=== PATIENT | male | born 1935 | race Caucasian/White ===

== ENCOUNTER 2017-08-02 07:10 | Inpatient (IN) | payer MEDICAID, MEDICARE ==
[2017-08-02] VITALS (12 sets, daily range): BP systolic 143–169; BP diastolic 68–81; PULSE 52–69; RESP 11–20; TEMP 95.1–98.6; O2SAT 95–100
[~2017-08-02] VITALS: Ht 188 cm; Wt 80.1 kg
[~2017-08-02 07:10] MED LIST: ALLO100T PO; CLON.1 PO; ECOT81TA2 PO; EXTR500C PO; FERR324T4 PO; FLON0.053; FURO1TAB93 PO; GLIP5 PO; LABE300T PO; NORV5TAB PO; RENA VITE PO; RENATAB5 PO; ULTR50TA PO; ZOCO40TA PO
--- NOTE | 2017-08-02 07:21 | PD ---
HPI Chief Complaint: Bleeding Time Seen by Provider: 07:19 Travel History International Travel<30 days: No Contact w/Intl Traveler<30days: No History of Present Illness HPI 82-year-old male on dialysis Wednesday last dialysis Wednesday presented to the emergency department today for evaluation of bleeding from his right brachial AV fistula. According to EMS the nurses noticed a scab and she had been treating this for some time. Apparently he lost near 1/2 L of blood on scene, arrived with a clamp over the AV fistula, patient has no complaints currently, no nausea vomiting diarrhea constipation chest pain shortness of breath. Has a history of stroke leaving only minimal deficits. Symptoms are moderate, started just prior to arrival, context and associated sinus symptoms as above PFSH Past Medical History High Cholesterol: Yes Diabetes: Yes Endocrine: Yes Hypertension: Yes Respiratory: Yes (COPD) Social History Tobacco Use: No Substance Use: No Allergies-Medications (Allergen,Severity, Reaction): Coded Allergies: No Known Allergies (Verified Allergy, Unknown, 08/02/17) Reported Meds & Prescriptions Reported Meds & Active Scripts Active Reported [Triamanolone] 0.1 % TOPICAL BID Gabapentin 100 Mg Cap 100 Mg PO TID Furosemide 40 Mg Tab 40 Mg PO DAILY Docusate Sodium 100 Mg Tab 200 Mg PO DAILY Atorvastatin (Atorvastatin Calcium) 40 Mg Tab 40 Mg PO HS Amlodipine (Amlodipine Besylate) 10 Mg Tab 10 Mg PO DAILY Tramadol (Tramadol HCl) 50 Mg Tab 50 Mg PO TID Labetalol (Labetalol HCl) 200 Mg Tab 200 Mg PO BID Mapap (Acetaminophen) 500 Mg Cap 500 Mg PO TID Fluticasone Nasal [place] 50 Mcg/Act Naspr 50 Mcg EACH NARE DAILY 50 mcg/spray Proventil Hfa 6.7 GM Inh (Albuterol Sulfate) 90 Mcg/Act Aer 1 Puff INH QID PRN Renvela (Sevelamer Carbonate) 800 Mg Tab 800 Mg PO TIDAC Nephro-[place]ah (B-Complex W/ C & Folic Acid) 1 Tab 1 Tab PO DAILY Ferrous Sulfate 325 Mg (65 Mg Iron) Tablet 325 Mg PO DAILY Aspirin 81 (Aspirin) 81 Mg Tabdr 81 Mg PO DAILY Allopurinol 100 Mg Tab 100 Mg PO DAILY Review of Systems Except as stated in HPI: all other systems reviewed are Neg Physical Exam Narrative GENERAL: Well-developed well-nourished no obvious distress SKIN: Focused skin assessment warm/dry. After significant time in clamp the patient's right AV fistula was examined, there is arterial bleeding from the source in the extent of the defect cannot be viewed as hemodynamic stability control as needed to be obtained. HEAD: Atraumatic. Normocephalic. EYES: Pupils equal and round. No scleral icterus. No injection or drainage. ENT: No nasal bleeding or discharge. Mucous membranes pink and moist. NECK: Trachea midline. No JVD. CARDIOVASCULAR: Regular rate and rhythm. No murmur appreciated. RESPIRATORY: No accessory muscle use. Clear to auscultation. Breath sounds equal bilaterally. GASTROINTESTINAL: Abdomen soft, non-tender, nondistended. Hepatic and splenic margins not palpable. MUSCULOSKELETAL: No obvious deformities. No clubbing. No cyanosis. No edema. NEUROLOGICAL: Awake and alert. Moderately confused, the patient cannot recall who his physicians are. PSYCHIATRIC: Appropriate mood and affect; insight and judgment normal. Data Data Last Documented VS Vital Signs Date Time Temp Pulse Resp B/P (MAP) Pulse Ox O2 Delivery O2 Flow Rate FiO2 08/02/17 10:35 08/02/17 10:35 97.3 62 15 100 08/02/17 10:30 Nasal Cannula 2.00 Orders Orders Basic Metabolic Panel (Bmp) (08/02/17 07:18) Complete Blood Count With Diff (08/02/17 07:18) Ecg Monitoring (08/02/17 07:18) Iv Access Insert/Monitor (08/02/17 07:18) Oximetry (08/02/17 07:18) Oxygen Administration (08/02/17 07:18) Sodium Chloride 0.9% Flush (Ns Flush) (08/02/17 07:30) Type And Screen (08/02/17 09:41) Red Blood Cells (Rbc) (08/02/17 09:41) Blood Product Administration (08/02/17 09:41) Sodium Chlor 0.9% 250 Ml Inj (Ns 250 Ml (08/02/17 09:45) Chest, Single Ap (08/02/17 ) Electrocardiogram (08/02/17 ) Act Partial Throm Time (Ptt) (08/02/17 09:46) Prothrombin Time / Inr (Pt) (08/02/17 09:46) Platelet Pheresis (08/02/17 09:46) Sodium Chlor 0.9% 250 Ml Inj (Ns 250 Ml (08/02/17 10:00) Consent (08/02/17 10:16) Heparin Inj (Heparin Inj) (08/02/17 10:20) Thrombin Top Soln (Thrombin Top Soln) (08/02/17 10:21) Gelfoam 100 Top (Gelfoam 100 Top) (08/02/17 10:21) Heparin Inj (Heparin Inj) (08/02/17 10:21) Protamine Sulfate Inj (Protamine Sulfate (08/02/17 10:21) Mannitol Inj (Mannitol Inj) (08/02/17 10:21) Admit Order (Ed Use Only) (08/02/17 ) Consult Vascular Surgery (08/02/17 ) Consult Nephrology (08/02/17 ) Labs Laboratory Tests Test 08/02/17 07:24 08/02/17 09:25 White Blood Count 6.4 TH/MM3 Red Blood Count 3.78 MIL/MM3 Hemoglobin 9.2 GM/DL Hematocrit 28.9 % Mean Corpuscular Volume 76.4 FL Mean Corpuscular Hemoglobin 24.5 PG Mean Corpuscular Hemoglobin Concent 32.1 % Red Cell Distribution Width 21.9 % Platelet Count 226 TH/MM3 Mean Platelet Volume 6.3 FL Neutrophils (%) (Auto) 68.3 % Lymphocytes (%) (Auto) 15.7 % Monocytes (%) (Auto) 8.7 % Eosinophils (%) (Auto) 6.2 % Basophils (%) (Auto) 1.1 % Neutrophils # (Auto) 4.4 TH/MM3 Lymphocytes # (Auto) 1.0 TH/MM3 Monocytes # (Auto) 0.6 TH/MM3 Eosinophils # (Auto) 0.4 TH/MM3 Basophils # (Auto) 0.1 TH/MM3 CBC Comment AUTO DIFF Differential Comment AUTO DIFF CONFIRMED Ovalocytes 1+ Helmet Cells OCC Keratocytes OCC Blood Urea Nitrogen 47 MG/DL Creatinine 12.07 MG/DL Random Glucose 91 MG/DL Calcium Level 9.1 MG/DL Sodium Level 136 MEQ/L Potassium Level 5.4 MEQ/L Chloride Level 101 MEQ/L Carbon Dioxide Level 23.9 MEQ/L Anion Gap 11 MEQ/L Estimat Glomerular Filtration Rate 4 ML/MIN Prothrombin Time 11.1 SEC Prothromb Time International Ratio 1.1 RATIO Activated Partial Thromboplast Time 31.0 SEC MDM Medical Decision Making Medical Screen Exam Complete: Yes Emergency Medical Condition: Yes Differential Diagnosis Anemia, AV fistula bleeding, AV fistula laceration. Narrative Course Patient room to the emergency department, had a clamp on his AV fistula left in place for an hour and a half, hemoglobin initially low, probably chronically so. May have lost up to 400-500 cc of blood at the dialysis center, when I released the clamp to examine the wound immediately there was arterial pulsatile bleeding from the AV fistula, a pressure dressing was applied, estimated blood loss is 250-300 cc, was starting on 1 unit of uncrossed matched blood, type and cross for an additional 5 units as necessary, discussed immediately with Dr. Muñoz and plan is to take to the operating room, discussed with the residents for admission to Dr. Rosa, discussed with Dr. Arciniega's PA requesting vascular catheter access if unable to use fistula after surgery. This was conveyed to Dr. Carrion and he will place a fistula if he thinks the fistula will not be usable. Critical Care Narrative Aggregate critical care time was 35 minutes. Time to perform other separately billable procedures was not included in the critical care time. My time did not include minutes spent treating any other patients simultaneously or on activities that did not directly contribute to the patient's treatment. The services I provided to this patient were to treat and/or prevent clinically significant deterioration that could result in: disability and organ failure I provided critical care services requiring my management, as noted below: Chart data review, documentation time, medication orders and management, vital sign assessments/reviewing monitor data, ordering and reviewing lab tests, ordering and interpreting/reviewing x-rays and diagnostic studies, care of the patient and discussion of the patient with the admitting physicians. Patient frequently reassessed by me for control of bleeding. Diagnosis Primary Impression: Hemorrhage of arteriovenous fistula Qualified Codes: T82.838A - Hemorrhage due to vascular prosthetic devices, implants and grafts, initial encounter Additional Impression: Anemia of renal disease Admitting Information Admitting Physician Requests: Admit Condition: Serious Agustín Oswald MD Aug 02, 2017 07:21
[2017-08-02] MEDS ORDERED: SODIUM CHLORIDE 0.9% FLUSH 10 ML FLUSH IVF PRN (07:30)
[2017-08-02 07:44] LABS: AUTOMATED NEUTROPHIL # 4.4 TH/MM3 (1.8-7.7); BASOPHIL # 0.1 TH/MM3 (0-0.2); BASOPHIL % 1.1 % (0.0-2.0); EOSINOPHIL # 0.4 TH/MM3 (0-0.4); EOSINOPHIL % 6.2 % (0.0-4.0); HEMATOCRIT 28.9 % (39.0-51.0); HEMOGLOBIN 9.2 GM/DL (13.0-17.0); LYMPH % 15.7 % (9.0-44.0); MEAN CELL VOLUME 76.4 FL (80.0-100.0); MEAN CORPUSCULAR HEMOGLOBIN 24.5 PG (27.0-34.0); MEAN CORPUSCULAR HGB CONC 32.1 % (32.0-36.0); MEAN PLATELET VOLUME 6.3 FL (7.0-11.0); MONO % 8.7 % (0.0-8.0); MONOCYTE # 0.6 TH/MM3 (0-0.9); NEUT % 68.3 % (16.0-70.0); PLATELET COUNT 226 TH/MM3 (150-450); RED BLOOD COUNT 3.78 MIL/MM3 (4.50-5.90); RED CELL DISTRIBUTION WIDTH 21.9 % (11.6-17.2); WHITE BLOOD COUNT 6.4 TH/MM3 (4.0-11.0)
[2017-08-02 08:05] LABS: BICARBONATE 23.9 MEQ/L (21.0-32.0); CALCIUM 9.1 MG/DL (8.5-10.1)
[2017-08-02 08:19] LABS: CREATININE 12.07 MG/DL (0.60-1.30)
[2017-08-02] MEDS ORDERED: ATOR40TA16 PO (08:35)
[2017-08-02] MEDS ORDERED: ALLO100T PO (08:35)
[2017-08-02] MEDS ORDERED: ALBU6.7H INH (08:35)
[2017-08-02] MEDS ORDERED: FURO40TA PO (08:35)
[2017-08-02] MEDS ORDERED: AMLO10TA2 PO (08:35)
[2017-08-02] MEDS ORDERED: MAPA500C PO (08:35)
[2017-08-02] MEDS ORDERED: NEPHTAB3 PO (08:35)
[2017-08-02] MEDS ORDERED: GABA100C4 PO (08:35)
[2017-08-02] MEDS ORDERED: TRAM50TA PO (08:35)
[2017-08-02] MEDS ORDERED: ASPI1TAB57 PO (08:35)
[2017-08-02] MEDS ORDERED: TRIAMCINOLONE TOPICAL (08:35)
[2017-08-02] MEDS ORDERED: SEVEL800 PO (08:35)
[2017-08-02] MEDS ORDERED: FERR325T18 PO (08:35)
[2017-08-02] MEDS ORDERED: FLUT50SP EACH NARE (08:35)
[2017-08-02] MEDS ORDERED: DOCU100T9 PO (08:35)
[2017-08-02] MEDS ORDERED: LABE200T2 PO (08:35)
[2017-08-02 08:42] LABS: OVALOCYTES 1+ (NORMAL)
[2017-08-02 08:43] LABS: HELMET CELLS OCC (NORMAL); KERATOCYTES OCC (NORMAL)
[2017-08-02] MEDS ORDERED: SODIUM CHLOR 0.9% 250 ML INJ 250 ML IV ONE ×2 (09:45→10:00)
[2017-08-02] MEDS ORDERED: HEPARIN SODIUM - SQ 10,000 UNITS/ML VIAL ONE (10:20)
[2017-08-02] MEDS ORDERED: GELFOAM SIZE 100 ONE (10:21)
[2017-08-02] MEDS ORDERED: MANNITOL INJ 0 ML ONE (10:21)
[2017-08-02] MEDS ORDERED: THROMBIN (TOPICAL) 5,000 UNIT VIAL ONE (10:21)
[2017-08-02] MEDS ORDERED: PROTAMINE SULFATE 50 MG/5 ML VIAL ONE (10:21)
[2017-08-02] MEDS ORDERED: HEPARIN SODIUM - IV 10,000 UNITS/10 ML VIAL ONE (10:21)
[2017-08-02 10:28] LABS: INTERNATIONAL NORMALIZED RATIO 1.1 RATIO; PROTHROMBIN TIME - PATIENT 11.1 SEC (9.8-11.6)
--- NOTE | 2017-08-02 10:35 | RADRPT ---
EXAM DATE/TIME: 08/02/2017 09:53 [place] COMPARISON: No previous studies available for comparison. INDICATIONS : Short of breath with wheezing. MEDICAL HISTORY : Renal failure, acute. SURGICAL HISTORY : Right arm AV fistula. ENCOUNTER: Initial ACUITY: 1 day PAIN SCORE: 6/10 LOCATION: Bilateral chest FINDINGS: A single view of the chest demonstrates diffuse interstitial densities. Bibasilar alveolar opacities greater right lower lobe. There is some volume loss on the right. Heart normal in size. Osseous struc tures are intact. CONCLUSION: 1. Interstitial and alveolar opacities with likely a combination of atelectasis/infiltrate right lowe r lobe given volume loss. Treatment and followup to resolution recommended. Kevin Bradford MD on August 02, 2017 at 10:31 Board Certified Radiologist. This report was verified electronically.
--- NOTE | 2017-08-02 10:41 | HHI.HP ---
HPI Service Family Medicine Primary Care Physician Unknown Admission Diagnosis AV fistula bleeding. Anemia. Diagnoses: International Travel<30 Days: No Contact w/Intl Traveler<30days: No Known Affected Area: No History of Present Illness Victor Manuel Root is a 82yr old M w/ DM, HTN, CHF, ESRD on dialysis (M,W,F) present to ED with for evaluation of AV fistula bleeding. Per ED note, pt arrived via EMS from dialysis center. He lost 1/2 L of blood on scene and arrived with a clamp over the AV fistula. Stat consult fo vascular surgery. ED physician spoke with Dr. Romero. Patient immediately transported back to OR for surgery. Patient denies CP, SOB, N/V and abdominal pain. No complaints at this time. Patient is a resident of [facility]. (Charito Beatty MD R1) Review of Systems ROS Limitations: Speech Impaired, Poor Historian Constitutional: DENIES: Fatigue, Fever Respiratory: DENIES: Shortness of breath Cardiovascular: DENIES: Chest pain (Charito Beatty MD R1) Past Family Social History Past Medical History DM HTN HLD CHF COPD CKD Anemia GERD ESRD on dialysis PVD Anxiety Hx of DVT Hx of CVA Past Surgical History Placement and AV dialysis fistula 2013 (Charito Beatty MD R1) Allergies: Coded Allergies: No Known Allergies (Verified Allergy, Unknown, 08/02/17) Family History Unknown Social History Resides at assisted living facility Completely independent per nurse at [facility] Denies smoking, drinking, and illicit drug use (Charito Beatty MD R1) Physical Exam Vital Signs Vital Signs Date Time Temp Pulse Resp B/P (MAP) Pulse Ox O2 Delivery O2 Flow Rate FiO2 08/02/17 10:35 97.3 62 15 166/78 100 08/02/17 10:24 98.0 61 18 159/74 100 08/02/17 10:00 63 11 159/74 (102) 97 Nasal Cannula 2.00 08/02/17 09:00 58 11 164/70 (101) 96 Nasal Cannula 2.00 08/02/17 08:00 58 12 148/68 (94) 95 Nasal Cannula 2.00 08/02/17 07:20 95 Room Air 08/02/17 07:20 98.6 65 14 156/71 (99) 95 Room Air 08/02/17 07:20 Nasal Cannula 2.00 08/02/17 07:15 98.6 69 156/71 (99) 96 Physical Exam GENERAL: pleasant, lying in bed, well-nourished, well-developed patient, in no apparent distress. SKIN: No rashes, ecchymoses or lesions. Cool and dry. HEAD: Atraumatic. Normocephalic. No temporal or scalp tenderness. EYES: Pupils equal round and reactive. Extraocular motions intact. No scleral icterus. No injection or drainage. ENT: Nose without bleeding, purulent drainage or septal hematoma. Throat without erythema, tonsillar hypertrophy or exudate. Uvula midline. Airway patent. NECK: Trachea midline. No JVD or lymphadenopathy. Supple, nontender, no meningeal signs. CARDIOVASCULAR: Regular rate and rhythm without murmurs, gallops, or rubs. RESPIRATORY: Clear to auscultation. Breath sounds equal bilaterally. No wheezes , rales, or rhonchi. GASTROINTESTINAL: Abdomen soft, non-tender, nondistended. No hepato-splenomegaly , or palpable masses. No guarding. MUSCULOSKELETAL: Right upper arm containing AV fistula wrapped in bandage with clamp NEUROLOGICAL: Awake, alert, oriented x 3 Laboratory Laboratory Tests Test 08/02/17 07:24 08/02/17 09:25 White Blood Count 6.4 Red Blood Count 3.78 Hemoglobin 9.2 Hematocrit 28.9 Mean Corpuscular Volume 76.4 Mean Corpuscular Hemoglobin 24.5 Mean Corpuscular Hemoglobin Concent 32.1 Red Cell Distribution Width 21.9 Platelet Count 226 Mean Platelet Volume 6.3 Neutrophils (%) (Auto) 68.3 Lymphocytes (%) (Auto) 15.7 Monocytes (%) (Auto) 8.7 Eosinophils (%) (Auto) 6.2 Basophils (%) (Auto) 1.1 Neutrophils # (Auto) 4.4 Lymphocytes # (Auto) 1.0 Monocytes # (Auto) 0.6 Eosinophils # (Auto) 0.4 Basophils # (Auto) 0.1 CBC Comment AUTO DIFF Differential Comment AUTO DIFF CONFIRMED Ovalocytes 1+ Helmet Cells OCC Keratocytes OCC Blood Urea Nitrogen 47 Creatinine 12.07 Random Glucose 91 Calcium Level 9.1 Sodium Level 136 Potassium Level 5.4 Chloride Level 101 Carbon Dioxide Level 23.9 Anion Gap 11 Estimat Glomerular Filtration Rate 4 Prothrombin Time 11.1 Prothromb Time International Ratio 1.1 Activated Partial Thromboplast Time 31.0 (Charito Beatty MD R1) Result Diagram: 08/02/1772308/02/17723 Caprini VTE Risk Assessment Caprini VTE Risk Assessment: Mod/High Risk (score >= 2) Caprini Risk Assessment Model Point Value = 1 Point Value = 2 Point Value = 3 Point Value = 5 Age 41-60 Minor surgery BMI > 25 kg/m2 Swollen legs Varicose veins or History of unexplained or recurrent spontaneous Oral contraceptives or hormone replacement Sepsis (< 1 month) Serious lung disease, including pneumonia (< 1 month) Abnormal pulmonary function Acute myocardial infarction Congestive heart failure (< 1 month) History of inflammatory bowel disease Medical patient at bed rest Age 61-74 Arthroscopic surgery Major open surgery (> 45 min) Laparoscopic surgery (> 45 min) Malignancy Confined to bed (> 72 hours) Immobilizing plaster cast Central venous access Age >= 75 History of VTE Family history of VTE Factor V Leiden Prothrombin [id number] Lupus anticoagulant Anticardiolipin antibodies Elevated serum homocysteine Heparin-induced thrombocytopenia Other congenital or acquired thrombophilia Stroke (< 1 month) Elective arthroplasty Hip, pelvis, or leg fracture Acute spinal cord injury (< 1 month) Prophylaxis Regimen Total Risk Factor Score Risk Level Prophylaxis Regimen 0-1 Low Early ambulation 2 Moderate Order ONE of the following: *Sequential Compression Device (SCD) *Heparin 5000 units SQ BID 3-4 Higher Order ONE of the following medications: *Heparin 5000 units SQ TID *Enoxaparin/Lovenox 40 mg SQ daily (WT < 150 kg, CrCl > 30 mL/min) *Enoxaparin/Lovenox 30 mg SQ daily (WT < 150 kg, CrCl > 10-29 mL/min) *Enoxaparin/Lovenox 30 mg SQ BID (WT < 150 kg, CrCl > 30 mL/min) AND/OR *Sequential Compression Device (SCD) 5 or more Highest Order ONE of the following medications: *Heparin 5000 units SQ TID (Preferred with Epidurals) *Enoxaparin/Lovenox 40 mg SQ daily (WT < 150 kg, CrCl > 30 mL/min) *Enoxaparin/Lovenox 30 mg SQ daily (WT < 150 kg, CrCl > 10-29 mL/min) *Enoxaparin/Lovenox 30 mg SQ BID (WT < 150 kg, CrCl > 30 mL/min) AND *Sequential Compression Device (SCD) (Charito Beatty MD R1) Assessment and Plan Assessment and Plan 82yr old w/ DM, HTN, CHF, and ESRD on dialysis admitted for AV fistula bleed. Hemodialysis Vas-Cath placed for dialysis today. Code Status Full code Discussed Condition With Dr. Lang (Charito Beatty MD R1) Attending Attestation THIS CASE WAS DISCUSSED WITH THE RESIDENT PHYSICIANS. I HAVE REVIEWED THE RECORD AND AGREE WITH THE ABOVE NOTE AND PLAN OF CARE WAS DISCUSSED. I HAVE AUTHORIZED THE ORDER FOR ADMISSION TO AN IN-PATIENT STATUS. (Benjy Adams MD) Problem List: (1) Hemorrhage of arteriovenous fistula ICD Codes: T82.838A - Hemorrhage due to vascular prosthetic devices, implants and grafts, initial encounter Status: Acute Plan: Vascular consulted stat for AV fistula repair. Vascular surgeon indicated that he cannot utilized it for 2-3 weeks. Nephrology consulted, appreciated recs. Hemodialysis Vas-Cath placed for dialysis today. Patient will need converted to a PermCath prior to discharge. s/p 2 units of RBC and 1 platelets on 08/02 (2) End-stage renal disease on hemodialysis ICD Codes: N18.6 - End stage renal disease; Z99.2 - Dependence on renal dialysis Status: Chronic Plan: As above. Patient to have hemodialysis today per his regular schedule which will improve his hyperkalemia and Cr level. (3) Anemia of renal disease ICD Codes: D63.1 - Anemia in chronic kidney disease Status: Chronic Plan: Hb of 9.2, MCV 76.4 Continue Epogen (4) Diabetes ICD Codes: E11.9 - Type 2 diabetes mellitus without complications Plan: -Low dose SS (5) HLD (hyperlipidemia) ICD Codes: E78.5 - Hyperlipidemia, unspecified Plan: -Continue Atorvastatin 40mg HS (6) HTN (hypertension) ICD Codes: I10 - Essential (primary) hypertension Plan: -Continue home HTN meds: Amlodipine 10mg PO daily and Labetalol 200mg PO BID -Clonidine 0.1mg PO PRN for BP >180/100 (7) Nutrition, metabolism, and development symptoms ICD Codes: R63.8 - Other symptoms and signs concerning food and fluid intake Plan: Diet: NPO, will advance to renal diet Fluids: not indicated at this time Electrolytes: monitor and replace as needed vitals q4h, monitor I & Os, (Charito Beatty MD R1) Physician Certification 2 Midnight Certification Type: Admission for Inpatient Services Order for Inpatient Services The services are ordered in accordance with Medicare regulations or non- Medicare payer requirements, as applicable. In the case of services not specified as inpatient-only, they are appropriately provided as inpatient services in accordance with the 2-midnight benchmark. Estimated LOS (days): 2 2 days is the estimated time the patient will need to remain in the hospital, assuming treatment plan goals are met and no additional complications. Post-Hospital Plan: Custodial/YFN (Charito Beatty MD R1) Problem Qualifiers (1) Hemorrhage of arteriovenous fistula: Qualified Codes: T82.838A - Hemorrhage due to vascular prosthetic devices, implants and grafts, initial encounter (2) Diabetes: Charito Beatty MD R1 Aug 02, 2017 10:41 Benjy Adams MD Aug 02, 2017 21:34
[2017-08-02] MEDS ORDERED: ceFAZolin 2 GM PREMIX 50 ML ONE (11:15)
[2017-08-02] MEDS ORDERED: LIDOCAINE HCL 1% PF 5 ML SYRINGE OTHER ONE (12:00)
[2017-08-02] MEDS ORDERED: PROPOFOL 200 MG/20 ML AMP IV ONE (12:00)
[2017-08-02] MEDS ORDERED: ROCURONIUM INJ 50 MG/5 ML SYRINGE IV PUSH ONE (12:00)
[2017-08-02] MEDS ORDERED: NORMOSOL R INJ 1,000 ML IV ONE (12:00)
[2017-08-02] MEDS ORDERED: NEOSTIGMINE 5 MG/5 ML SYRINGE IV PUSH ONE (12:00)
[2017-08-02] MEDS ORDERED: GLYCOPYRROLATE 1 MG/5 ML SYRINGE IV PUSH ONE (12:00)
[2017-08-02] MEDS ORDERED: DO NOT ADM ANY ANTICOAGULANT DRUGS PRN (12:51)
[2017-08-02] MEDS ORDERED: SODIUM CHLOR 0.9% 1000 ML INJ 1,000 ML OTHER PRN ×2 (15:27)
[2017-08-02] MEDS ORDERED: SODIUM CHLOR 0.9% 1000 ML INJ 1,000 ML IV PRN (15:27)
[2017-08-02] MEDS ORDERED: cloNIDine HCL 0.1 MG TAB PO PRN (15:30)
[2017-08-02] MEDS ORDERED: diphenhydrAMINE HCL 25 MG CAP PO PRN (15:30)
[2017-08-02] MEDS ORDERED: ONDANSETRON HCL 4 MG/2 ML VIAL IV PUSH PRN (15:30)
[2017-08-02] MEDS ORDERED: ALBUMIN 25% INJ 100 ML IV PRN (15:30)
[2017-08-02] MEDS ORDERED: MANNITOL 12.5 GM/50 ML VIAL IV PRN (15:30)
[2017-08-02] MEDS ORDERED: HEPARIN SODIUM - IV 10,000 UNITS/10 ML VIAL PRN (15:30)
[2017-08-02] MEDS ORDERED: GENTAMICIN SULFATE 20 MG/2 ML VIAL OTHER PRN (15:30)
[2017-08-02] MEDS ORDERED: NITROGLYCERIN 0.4 MG SL 25 TABS/BTL SL PRN (15:30)
[2017-08-02] MEDS ORDERED: HEPARIN SODIUM - IV 10,000 UNITS/10 ML VIAL IV FLUSH PRN (15:30)
[2017-08-02] MEDS ORDERED: ACETAMINOPHEN 325 MG TAB PO PRN ×2 (15:30→16:30)
[2017-08-02] MEDS ORDERED: GELATIN 12 MM/7 MM FOAM TOP PRN (15:30)
[2017-08-02] MEDS ORDERED: SODIUM CHLORIDE 0.9% FLUSH 10 ML FLUSH IV FLUSH PRN ×3 (15:30→17:00)
[2017-08-02] MEDS ORDERED: ACETAMINOPHEN/HYDROcodone 325 MG/5 MG TAB PO PRN (16:30)
[2017-08-02] MEDS ORDERED: MORPHINE SULFATE 2 MG/ML INJ IV PUSH PRN (16:30)
[2017-08-02] MEDS ORDERED: DEXTROSE 50% IN WATER 50 ML VIAL(D50) IV PUSH PRN (16:45)
[2017-08-02] MEDS ORDERED: GLUCAGON 1 MG/ML VIAL OTHER PRN (16:45)
[2017-08-02] MEDS ORDERED: HEPARIN SODIUM - IV 2,000 UNITS/2 ML VIAL IV FLUSH PRN (17:00)
[2017-08-02] MEDS: INSULIN ASPART SUPPLEMENTAL SCALE SQ SCH ×2 (17:00→22:37)
--- NOTE | 2017-08-02 17:02 | PD.RAD ---
Post Procedure Progress Note Pre Procedure Diagnosis: (1) Renal failure (2) Hemorrhage of arteriovenous fistula Post Procedure Diagnosis: (1) Hemorrhage of arteriovenous fistula (2) Renal failure Procedure Date: Aug 02, 2017 Supervising Radiologist: Blayne Luis JR Proceduralist/Assist: Dev Pompa, RT(R), Fernanda Cole, RT(R) Anesthesia: Local Plan of Activity Patient to Unit: Nursing Unit Patient Condition: Good See PACS Report for procedural detail/treatment Central Venous Access Device Procedure 1 Right Internal Jugular Hemodialysis Catheter Non-Tunneled Placement dual lumen [place]: 15 Procedure 2 Left Internal Jugular Central Line Placement triple lumen [place]: 7 Findings: Right subclavian stent cages the right IJ. Unable to use right IJ for venous access. Spoke with Dr Lyles Pt needs venous access. He requested CVL placement as well. Placed left IJ Vascath and CVL. Both in good position. Utilized only available CVL size 20cm. Tip in brachiocephalic vein. Vascath tip in RA Jr. Toby,Blayne Andrade MD Aug 02, 2017 17:02
--- NOTE | 2017-08-02 17:27 | PD.CONS ---
HPI Consult Requested By Reason for Consult End-stage renal disease and dialysis management. Primary Care Physician Unknown History of Present Illness This patient is an 82-year-old male with a history of end-stage renal disease, diabetes mellitus, hypertension, CHF improve or vascular disease with previous placement of a AV dialysis fistula. Patient was at the dialysis facility and apparently there was a significant blood loss from his AV dialysis access. Per vascular surgeon there appeared to be a scabbed area overlying the access which gave way. Documented blood loss of about 400 MLS. The access has been repaired but the vascular surgeon as indicated he cannot be utilized for about 2-3 weeks. Hemodialysis Vas-Cath is placed for dialysis today. Patient was seen postprocedure. Review of Systems Constitutional: DENIES: Diaphoretic episodes, Fatigue, Fever, Weight gain, Weight loss, Chills, Dizziness, Change in appetite, Night Sweats Cardiovascular: DENIES: Chest pain, Palpitations, Syncope, Dyspnea on Exertion , PND, Lower Extremity Edema, Orthopnea, Claudication Gastrointestinal: DENIES: Abdominal pain, Black stools, Bloody stools, Constipation, Diarrhea, Nausea, Vomiting, Difficulty Swallowing, Anorexia Musculoskeletal: COMPLAINS OF: Joint pain, Stiffness, DENIES: Muscle aches, Joint Swelling, Back pain, Neck pain Past Family Social History Allergies: Coded Allergies: No Known Allergies (Verified Allergy, Unknown, 08/02/17) Past Medical History End-stage renal disease Hypertension Diabetes mellitus Coronary disease Carcinoma of the prostate CHF Peripheral vascular disease. Gastroesophageal reflux disease. Previous intracranial hemorrhage. Past Surgical History Placement and AV dialysis fistula August 2013. Reported Medications Reported Meds & Active Scripts Active Reported [Triamanolone] 0.1 % TOPICAL BID Gabapentin 100 Mg Cap 100 Mg PO TID Furosemide 40 Mg Tab 40 Mg PO DAILY Docusate Sodium 100 Mg Tab 200 Mg PO DAILY Atorvastatin (Atorvastatin Calcium) 40 Mg Tab 40 Mg PO HS Amlodipine (Amlodipine Besylate) 10 Mg Tab 10 Mg PO DAILY Tramadol (Tramadol HCl) 50 Mg Tab 50 Mg PO TID Labetalol (Labetalol HCl) 200 Mg Tab 200 Mg PO BID Mapap (Acetaminophen) 500 Mg Cap 500 Mg PO TID Fluticasone Nasal [place] 50 Mcg/Act Naspr 50 Mcg EACH NARE DAILY 50 mcg/spray Proventil Hfa 6.7 GM Inh (Albuterol Sulfate) 90 Mcg/Act Aer 1 Puff INH QID PRN Renvela (Sevelamer Carbonate) 800 Mg Tab 800 Mg PO TIDAC Nephro-Micah (B-Complex W/ C & Folic Acid) 1 Tab 1 Tab PO DAILY Ferrous Sulfate 325 Mg (65 Mg Iron) Tablet 325 Mg PO DAILY Aspirin 81 (Aspirin) 81 Mg Tabdr 81 Mg PO DAILY Allopurinol 100 Mg Tab 100 Mg PO DAILY Active Ordered Medications Current Medications Sodium Chloride (NS Flush) 2 ml UNSCH PRN IVF FLUSH AFTER USING IV ACCESS; Start 08/02/17 at 07:30 Sodium Chloride 250 ml @ 15 mls/hr ONCE ONCE IV ; Start 08/02/17 at 09:45; Stop 08/03/17 at 02:24 Sodium Chloride 250 ml @ 15 mls/hr ONCE ONCE IV ; Start 08/02/17 at 10:00; Stop 08/03/17 at 02:39 Heparin Sodium (Porcine) (Heparin Inj) 10,000 units STK-MED ONCE .ROUTE Last administered on 08/02/17at 12:15; Start 08/02/17 at 10:20; Stop 08/02/17 at 10:21 ; Status DC Thrombin (Thrombin Top Soln) 5,000 units STK-MED ONCE .ROUTE ; Start 08/02/17 at 10:21; Stop 08/02/17 at 10:22; Status DC Gelatin (Gelfoam 100 Top) 1 foam STK-MED ONCE .ROUTE ; Start 08/02/17 at 10:21; Stop 08/02/17 at 10:22; Status DC Heparin Sodium (Porcine) (Heparin Inj) 10,000 units STK-MED ONCE .ROUTE ; Start 08/02/17 at 10:21; Stop 08/02/17 at 10:22; Status DC Protamine Sulfate (Protamine Sulfate Inj) 50 mg STK-MED ONCE .ROUTE ; Start at 10:21; Stop 08/02/17 at 10:22; Status DC Mannitol 0 ml @ As Directed STK-MED ONCE .ROUTE ; Start 08/02/17 at 10:21; Stop 08/02/17 at 10:22; Status DC Cefazolin Sodium/ Dextrose 50 ml @ As Directed STK-MED ONCE .ROUTE Last administered on 08/02/17at 11:51; Start 08/02/17 at 11:15; Stop 08/02/17 at 11:16 ; Status DC Fentanyl Citrate (fentaNYL INJ) 100 mcg STK-MED ONCE .ROUTE ; Start 08/02/17 at 13:00; Stop 08/02/17 at 13:01; Status DC Miscellaneous Information ALL NURSING DEPARTME... UNSCH PRN .XX SEE LABEL COMMENTS; Start 08/02/17 at 12:51; Stop 08/03/17 at 12:50 Heparin Sodium (Porcine) (*HEPARIN INJ Periprocedural ONLY) 10,000 units STK- MED ONCE .ROUTE ; Start 08/02/17 at 15:01; Stop 08/02/17 at 15:02; Status DC Sodium Chloride 1,000 ml @ 0 mls/hr Q0M PRN OTHER For Prime & Rinse Back; Start 08/02/17 at 15:27 Heparin Sodium (Porcine) (Heparin Inj) 8,000 units UNSCH PRN IV FLUSH WITH DIALYSIS; Start 08/02/17 at 15:30 Sodium Chloride 1,000 ml @ 200 mls/hr Q5H PRN IV WITH DIALYSIS; Start 08/02/17 at 15:27 Sodium Chloride 1,000 ml @ 0 mls/hr Q0M PRN OTHER WITH DIALYSIS; Start at 15:27 Mannitol (Mannitol Inj) 12.5 gm UNSCH PRN IV WITH DIALYSIS; Start 08/02/17 at 15:30 Albumin Human 100 ml @ 60 mls/hr UNSCH PRN IV WITH DIALYSIS; Start 08/02/17 at 15:30 Sodium Chloride (NS Flush) 5 ml UNSCH PRN IV FLUSH WITH DIALYSIS; Start at 15:30 Heparin Sodium (Porcine) (Heparin Inj) UNSCH PRN .XX WITH DIALYSIS; Start at 15:30 Gentamicin Sulfate (Gentamicin Inj) 20 mg UNSCH PRN OTHER WITH DIALYSIS; Start 08/02/17 at 15:30 Ondansetron HCl (Zofran Inj) 4 mg UNSCH PRN IV PUSH WITH DIALYSIS; Start at 15:30 Acetaminophen (Tylenol) 650 mg UNSCH PRN PO for headach, pain, temp > 101F; Start 08/02/17 at 15:30 Diphenhydramine HCl (Benadryl) 25 mg UNSCH PRN PO for hives/itching/anaphylaxis ; Start 08/02/17 at 15:30 Nitroglycerin (Nitrostat Sl) 0.4 mg UNSCH PRN SL CHEST PAIN; Start 08/02/17 at 15:30 Clonidine (Catapres) 0.1 mg UNSCH PRN PO for BP > 180/100 X 2 readings; Start 08/02/17 at 15:30 Gelatin (Gelfoam 12 Mm/7 Mm Top) 1 foam UNSCH PRN TOP SEE LABEL COMMENTS; Start 08/02/17 at 15:30 Amlodipine Besylate (Norvasc) 10 mg DAILY PO ; Start 08/02/17 at 16:30 Atorvastatin Calcium (Lipitor) 40 mg HS PO ; Start 08/02/17 at 21:00 Labetalol HCl (Trandate) 200 mg BID PO ; Start 08/02/17 at 21:00 Acetaminophen (Tylenol) 650 mg Q6H PRN PO PAIN SCALE 1 TO 5; Start 08/02/17 at 16:30 Acetaminophen/ Hydrocodone Bitart ([place] 5-325 Mg) 1 tab Q4H PRN PO PAIN SCALE 5 TO 10; Start 08/02/17 at 16:30 Morphine Sulfate (Morphine Inj) 1 mg Q3H PRN IV PUSH BREAKTHROUGH PAIN; Start 08/02/17 at 16:30 Dextrose (D50w (Vial) Inj) 50 ml UNSCH PRN IV PUSH HYPOGLYCEMIA-SEE COMMENTS; Start 08/02/17 at 16:45 Glucagon (Glucagon Inj) 1 mg UNSCH PRN OTHER HYPOGLYCEMIA-SEE COMMENTS; Start 08/02/17 at 16:45 Insulin Aspart (NovoLOG SUPPLEMENTAL SCALE) 1 ACHS SLIDING SCALE SQ ; Start at 17:00 Sodium Chloride (NS Flush) DAILY IV FLUSH ; Start 08/03/17 at 09:00 Sodium Chloride (NS Flush) UNSCH PRN IV FLUSH SEE PROTOCOL; Start 08/02/17 at 17:00 Sodium Chloride (NS Flush) UNSCH PRN IV FLUSH SEE PROTOCOL; Start 08/02/17 at 17:00 Heparin Sodium (Porcine) (Heparin Inj) UNSCH PRN IV FLUSH SEE PROTOCOL; Start 08/02/17 at 17:00 Family History Noncontributory to current complaint. Social History Patient resides in a intermediate. No history of alcohol or tobacco abuse. Physical Exam Vital Signs Vital Signs Date Time Temp Pulse Resp B/P (MAP) Pulse Ox O2 Delivery O2 Flow Rate FiO2 08/02/17 15:00 95.1 53 19 149/72 (97) 99 08/02/17 14:30 97.9 51 20 153/65 (94) 100 Nasal Cannula 2 08/02/17 14:00 51 20 153/65 (94) 100 Nasal Cannula 2 08/02/17 13:45 50 20 141/69 (93) 100 Nasal Cannula 2 08/02/17 13:30 51 20 135/65 (88) 91 Nasal Cannula 2 08/02/17 13:15 53 20 140/68 (92) 100 Nasal Cannula 2 08/02/17 13:09 97.4 52 20 143/69 100 08/02/17 12:55 97.8 59 20 155/74 (101) 98 Nasal Cannula 2 08/02/17 10:35 08/02/17 10:35 97.3 62 15 166/78 100 08/02/17 10:30 62 12 169/81 (110) 99 Nasal Cannula 2.00 08/02/17 10:24 98.0 61 18 159/74 100 08/02/17 10:00 63 11 159/74 (102) 97 Nasal Cannula 2.00 08/02/17 09:00 58 11 164/70 (101) 96 Nasal Cannula 2.00 08/02/17 08:00 58 12 148/68 (94) 95 Nasal Cannula 2.00 08/02/17 07:20 95 Room Air 08/02/17 07:20 98.6 65 14 156/71 (99) 95 Room Air 08/02/17 07:20 Nasal Cannula 2.00 08/02/17 07:15 98.6 69 156/71 (99) 96 Physical Exam GENERAL: Patient not in respiratory distress. Mucous membranes pink. SKIN: Warm and dry. HEAD: Normocephalic. EYES: No scleral icterus. No injection or drainage. NECK: Supple, trachea midline. No JVD or lymphadenopathy. CARDIOVASCULAR: Regular rate and rhythm without murmurs, gallops, or rubs. RESPIRATORY: Breath sounds equal bilaterally. No accessory muscle use. GASTROINTESTINAL: Abdomen soft, non-tender, nondistended. MUSCULOSKELETAL: No cyanosis, or edema. Dressing overlying his surgical site were not disturbed. Hemodialysis Vas-Cath present right jugular vein. BACK: Nontender without obvious deformity. Laboratory Laboratory Tests Test 08/02/17 07:24 08/02/17 09:25 White Blood Count 6.4 Red Blood Count 3.78 Hemoglobin 9.2 Hematocrit 28.9 Mean Corpuscular Volume 76.4 Mean Corpuscular Hemoglobin 24.5 Mean Corpuscular Hemoglobin Concent 32.1 Red Cell Distribution Width 21.9 Platelet Count 226 Mean Platelet Volume 6.3 Neutrophils (%) (Auto) 68.3 Lymphocytes (%) (Auto) 15.7 Monocytes (%) (Auto) 8.7 Eosinophils (%) (Auto) 6.2 Basophils (%) (Auto) 1.1 Neutrophils # (Auto) 4.4 Lymphocytes # (Auto) 1.0 Monocytes # (Auto) 0.6 Eosinophils # (Auto) 0.4 Basophils # (Auto) 0.1 CBC Comment AUTO DIFF Differential Comment AUTO DIFF CONFIRMED Ovalocytes 1+ Helmet Cells OCC Keratocytes OCC Blood Urea Nitrogen 47 Creatinine 12.07 Random Glucose 91 Calcium Level 9.1 Sodium Level 136 Potassium Level 5.4 Chloride Level 101 Carbon Dioxide Level 23.9 Anion Gap 11 Estimat Glomerular Filtration Rate 4 Prothrombin Time 11.1 Prothromb Time International Ratio 1.1 Activated Partial Thromboplast Time 31.0 Result Diagram: 08/02/1772308/02/17723 Assessment and Plan Problem List: (1) End-stage renal disease on hemodialysis ICD Codes: N18.6 - End stage renal disease; Z99.2 - Dependence on renal dialysis Status: Chronic Plan: Patient to have hemodialysis today per his regular schedule which will improve his mild hyperkalemia also as well as his volume status. As indicated above we will not be able to use the AV dialysis access for at least 2-3 weeks per vascular surgery. Will utilize Vas-Cath for dialysis today however needs to be converted to a PermCath prior to discharge. Medication should be adjusted for his end-stage renal disease when indicated. Avoid gadolinium. (2) Hemorrhage of arteriovenous fistula ICD Codes: T82.838A - Hemorrhage due to vascular prosthetic devices, implants and grafts, initial encounter Status: Acute Plan: As above. (3) Anemia of renal disease ICD Codes: D63.1 - Anemia in chronic kidney disease Status: Chronic Plan: Continue Epogen for anemia renal disease. 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 Trupti Arciniega MD Aug 02, 2017 17:27
--- NOTE | 2017-08-02 18:06 | RADRPT ---
EXAM DATE/TIME: 08/02/2017 17:10 This report includes an Addendum and supersedes previous reports for this exam. [facility] COMPARISON: No previous studies available for comparison. INDICATIONS : Patient presents with non working fistula in need of a temporary dialysis catheter. MEDICAL HISTORY : DM HTN HLD CHF COPD CKD Anemia GERD ESRD on dialysis SURGICAL HISTORY : CVA ENCOUNTER: Initial ACUITY: 4-6 months PAIN SCORE: 0/10 LOCATION: Right Arm FLUORO TIME: IMAGE SERIES: 4 ACCESS: Left internal jugular vein DEVICE(S): 1.) 14 [place] dual lumen 20 cm Schon catheter PROCEDURE : 1. Ultrasound guided venipuncture. 2. Fluoroscopic guidance. 3. Central line placement. The patient has a caged right internal jugular vein secondary to subclavian stent. The risks, benefit s and alternatives to the procedure were explained and verbal and written consent was obtained. The site was prepped in sterile fashion. Full sterile technique was used, including cap, mask, sterile g loves and gown and a large sterile sheet. Hand hygiene and 2% chlorhexidine prep was utilized per pr otocol for cutaneous antisepsis with appropriate dry time for site. Sterile gel and sterile probe co alice were utilized for ultrasound guidance. The skin and subcutaneous tissues were infiltrated with local anesthetic solution. A suitable site a teresa the vein was selected with ultrasound and fluoroscopic guidance. A small incision was made. Th e right internal jugular vein was accessed under direct ultrasound visualization using the micropunct ure technique. A 0.018 wire was passed into the central venous system and a micropuncture sheath [place]. Fluoroscopic evaluation shows a stent within the right subclavian vein which has caged the confl uence of the internal jugular vein. The wire traverses the tines of the stent and enters the central venous system. I'm unable to place a central venous catheter due to the stent. The wire and sheath we re removed and hemostasis obtained utilizing pressure. The patient tolerated the procedure well and there were no complications. CONCLUSION: Access to the right internal jugular vein shows a subclavian stent crossing the confluence of the int ernal jugular vein preventing central line placement on this side. Blayne Luis Jr., MD on August 02, 2017 at 18:01 Board Certified Radiologist. This report was verified electronically. ADDENDUM: A left internal jugular vein vas catheter was placed. Sterile aseptic technique was utilized. The tip of the catheter is at the proximal right atrium. Blayne Luis Jr., MD on August 03, 2017 at 9:44 Board Certified Radiologist. This report was verified electronically.
--- NOTE | 2017-08-02 18:24 | EKG ---
Date Performed: 08/02/2017 Time Performed: 10:06:30 PTAGE: 82 years EKG: Sinus rhythm MARKED LEFT AXIS DEVIATION MODERATE INTRAVENTRICULAR CONDUCTION DELAY Left anterior fasicular block. ABNORMAL ECG PREVIOUS TRACING : 08/30/2013 07.01 DOCTOR: René Lechuga Interpretating Date/Time 08/02/2017 18:23:13
--- NOTE | 2017-08-02 18:40 | RADRPT ---
EXAM DATE/TIME: 08/02/2017 17:10 [facility] COMPARISON: No previous studies available for comparison. INDICATIONS : Patient presents with a non working fistula in need of a vas cath and central line placement for anti biotics. MEDICAL HISTORY : DM HTN HLD CHF COPD CKD Anemia GERD ESRD on dialysis SURGICAL HISTORY : CVA ENCOUNTER: Initial ACUITY: 1 day PAIN SCORE: 0/10 LOCATION: Right Arm FLUORO TIME: 1.47 minutes IMAGE SERIES: 1 ACCESS: Right internal jugular vein DEVICE(S): 1.) 7 [place] triple lumen 20 cm Central line PROCEDURE : 1. Ultrasound guided venipuncture. 2. Fluoroscopic guidance. 3. Central line placement. The risks, benefits and alternatives to the procedure were explained and verbal and written consent w as obtained. The site was prepped in sterile fashion. Full sterile technique was used, including ca p, mask, sterile gloves and gown and a large sterile sheet. Hand hygiene and 2% chlorhexidine prep w as utilized per protocol for cutaneous antisepsis with appropriate dry time for site. Sterile gel an d sterile probe cover were utilized for ultrasound guidance. The skin and subcutaneous tissues were infiltrated with local anesthetic solution. A suitable site a teresa the vein was selected with ultrasound and fluoroscopic guidance. A small incision was made. Th e vein was accessed under direct ultrasound visualization using the micropuncture technique. The belén ropuncture set was exchanged for a 0.035 wire. The tract was dilated. The catheter was advanced int o position under direct fluoroscopic visualization. The catheter was fixed in place with suture and a sterile dressing was applied. The patient tolerated the procedure well and there were no complications. CONCLUSION: Uncomplicated line placement as above. Blayne Luis Jr., MD on August 02, 2017 at 18:06 Board Certified Radiologist. This report was verified electronically.
--- NOTE | 2017-08-02 21:32 | HHI.HP ---
HPI Service Family Medicine Primary Care Physician Unknown Admission Diagnosis AV fistula bleeding. Anemia. Diagnoses: (1) Hemorrhage of arteriovenous fistula (2) End-stage renal disease on hemodialysis (3) Anemia of renal disease (4) Diabetes (5) HLD (hyperlipidemia) (6) HTN (hypertension) (7) Nutrition, metabolism, and development symptoms International Travel<30 Days: No Contact w/Intl Traveler<30days: No Known Affected Area: No History of Present Illness 82 yo M presenting to the ED from dialysis with excessive bleeding from his AV fistula in his right upper arm. He is in dalysis M/W/F and apparently had a large amount of bleeding from the AV fistula site at his visit today, he was unable to complete his dialysis session prior to transport to the ED. He was seen by Dr. Romero and taken for surgical repair of the AV fistula. Past Family Social History Past Medical History DM HTN HLD CHF COPD CKD Anemia GERD ESRD on dialysis PVD Anxiety Hx of DVT Hx of CVA Past Surgical History Placement and AV dialysis fistula 2013 Allergies: Coded Allergies: No Known Allergies (Verified Allergy, Unknown, 08/02/17) Family History Unknown Social History Resides at assisted living facility Completely independent per nurse at [facility] Denies smoking, drinking, and illicit drug use Physical Exam Vital Signs Vital Signs Date Time Temp Pulse Resp B/P (MAP) Pulse Ox O2 Delivery O2 Flow Rate FiO2 08/02/17 20:08 99 21 08/02/17 15:00 95.1 53 19 149/72 (97) 99 08/02/17 14:30 97.9 51 20 153/65 (94) 100 Nasal Cannula 2 08/02/17 14:00 51 20 153/65 (94) 100 Nasal Cannula 2 08/02/17 13:45 50 20 141/69 (93) 100 Nasal Cannula 2 08/02/17 13:30 51 20 135/65 (88) 91 Nasal Cannula 2 08/02/17 13:15 53 20 140/68 (92) 100 Nasal Cannula 2 08/02/17 13:09 97.4 52 20 143/69 100 08/02/17 12:55 97.8 59 20 155/74 (101) 98 Nasal Cannula 2 08/02/17 10:35 08/02/17 10:35 97.3 62 15 166/78 100 08/02/17 10:30 62 12 169/81 (110) 99 Nasal Cannula 2.00 08/02/17 10:24 98.0 61 18 159/74 100 08/02/17 10:00 63 11 159/74 (102) 97 Nasal Cannula 2.00 08/02/17 09:00 58 11 164/70 (101) 96 Nasal Cannula 2.00 08/02/17 08:00 58 12 148/68 (94) 95 Nasal Cannula 2.00 08/02/17 07:20 95 Room Air 08/02/17 07:20 98.6 65 14 156/71 (99) 95 Room Air 08/02/17 07:20 Nasal Cannula 2.00 08/02/17 07:15 98.6 69 156/71 (99) 96 Physical Exam GENERAL: pleasant, lying in bed, well-nourished, well-developed patient, in no apparent distress. EYES: Pupils equal round and reactive. Extraocular motions intact. No scleral icterus. No injection or drainage. CARDIOVASCULAR: Regular rate and rhythm without murmurs, gallops, or rubs. RESPIRATORY: Clear to auscultation. Breath sounds equal bilaterally. No wheezes , rales, or rhonchi. GASTROINTESTINAL: Abdomen soft, non-tender, nondistended. No hepato-splenomegaly , or palpable masses. No guarding. MUSCULOSKELETAL: Right upper arm containing AV fistula wrapped in bandage with clamp NEUROLOGICAL: Awake, alert, oriented x 3 Laboratory Laboratory Tests Test 08/02/17 07:24 08/02/17 09:25 White Blood Count 6.4 Red Blood Count 3.78 Hemoglobin 9.2 Hematocrit 28.9 Mean Corpuscular Volume 76.4 Mean Corpuscular Hemoglobin 24.5 Mean Corpuscular Hemoglobin Concent 32.1 Red Cell Distribution Width 21.9 Platelet Count 226 Mean Platelet Volume 6.3 Neutrophils (%) (Auto) 68.3 Lymphocytes (%) (Auto) 15.7 Monocytes (%) (Auto) 8.7 Eosinophils (%) (Auto) 6.2 Basophils (%) (Auto) 1.1 Neutrophils # (Auto) 4.4 Lymphocytes # (Auto) 1.0 Monocytes # (Auto) 0.6 Eosinophils # (Auto) 0.4 Basophils # (Auto) 0.1 CBC Comment AUTO DIFF Differential Comment AUTO DIFF CONFIRMED Ovalocytes 1+ Helmet Cells OCC Keratocytes OCC Blood Urea Nitrogen 47 Creatinine 12.07 Random Glucose 91 Calcium Level 9.1 Sodium Level 136 Potassium Level 5.4 Chloride Level 101 Carbon Dioxide Level 23.9 Anion Gap 11 Estimat Glomerular Filtration Rate 4 Prothrombin Time 11.1 Prothromb Time International Ratio 1.1 Activated Partial Thromboplast Time 31.0 Result Diagram: 08/02/1772308/02/17723 Caprini VTE Risk Assessment Caprini VTE Risk Assessment: Mod/High Risk (score >= 2) Caprini Risk Assessment Model Point Value = 1 Point Value = 2 Point Value = 3 Point Value = 5 Age 41-60 Minor surgery BMI > 25 kg/m2 Swollen legs Varicose veins or History of unexplained or recurrent spontaneous Oral contraceptives or hormone replacement Sepsis (< 1 month) Serious lung disease, including pneumonia (< 1 month) Abnormal pulmonary function Acute myocardial infarction Congestive heart failure (< 1 month) History of inflammatory bowel disease Medical patient at bed rest Age 61-74 Arthroscopic surgery Major open surgery (> 45 min) Laparoscopic surgery (> 45 min) Malignancy Confined to bed (> 72 hours) Immobilizing plaster cast Central venous access Age >= 75 History of VTE Family history of VTE Factor V Leiden Prothrombin [id number] Lupus anticoagulant Anticardiolipin antibodies Elevated serum homocysteine Heparin-induced thrombocytopenia Other congenital or acquired thrombophilia Stroke (< 1 month) Elective arthroplasty Hip, pelvis, or leg fracture Acute spinal cord injury (< 1 month) Prophylaxis Regimen Total Risk Factor Score Risk Level Prophylaxis Regimen 0-1 Low Early ambulation 2 Moderate Order ONE of the following: *Sequential Compression Device (SCD) *Heparin 5000 units SQ BID 3-4 Higher Order ONE of the following medications: *Heparin 5000 units SQ TID *Enoxaparin/Lovenox 40 mg SQ daily (WT < 150 kg, CrCl > 30 mL/min) *Enoxaparin/Lovenox 30 mg SQ daily (WT < 150 kg, CrCl > 10-29 mL/min) *Enoxaparin/Lovenox 30 mg SQ BID (WT < 150 kg, CrCl > 30 mL/min) AND/OR *Sequential Compression Device (SCD) 5 or more Highest Order ONE of the following medications: *Heparin 5000 units SQ TID (Preferred with Epidurals) *Enoxaparin/Lovenox 40 mg SQ daily (WT < 150 kg, CrCl > 30 mL/min) *Enoxaparin/Lovenox 30 mg SQ daily (WT < 150 kg, CrCl > 10-29 mL/min) *Enoxaparin/Lovenox 30 mg SQ BID (WT < 150 kg, CrCl > 30 mL/min) AND *Sequential Compression Device (SCD) Assessment and Plan Assessment and Plan 82yr old w/ DM, HTN, CHF, and ESRD on dialysis admitted for AV fistula bleed. Hemodialysis Vas-Cath placed for dialysis today. Problem List: (1) Hemorrhage of arteriovenous fistula ICD Codes: T82.838A - Hemorrhage due to vascular prosthetic devices, implants and grafts, initial encounter Status: Acute Plan: Vascular consulted stat for AV fistula repair. Vascular surgeon indicated that he cannot utilized it for 2-3 weeks. Nephrology consulted, appreciated recs. Hemodialysis Vas-Cath placed for dialysis today. Patient will need converted to a PermCath prior to discharge. s/p 2 units of RBC and 1 platelets on 08/02 (2) End-stage renal disease on hemodialysis ICD Codes: N18.6 - End stage renal disease; Z99.2 - Dependence on renal dialysis Status: Chronic Plan: As above. Patient to have hemodialysis today per his regular schedule which will improve his hyperkalemia and Cr level. (3) Anemia of renal disease ICD Codes: D63.1 - Anemia in chronic kidney disease Status: Chronic Plan: Hb of 9.2, MCV 76.4 Continue Epogen (4) Diabetes ICD Codes: E11.9 - Type 2 diabetes mellitus without complications Plan: -Low dose SS (5) HLD (hyperlipidemia) ICD Codes: E78.5 - Hyperlipidemia, unspecified Plan: -Continue Atorvastatin 40mg HS (6) HTN (hypertension) ICD Codes: I10 - Essential (primary) hypertension Plan: -Continue home HTN meds: Amlodipine 10mg PO daily and Labetalol 200mg PO BID -Clonidine 0.1mg PO PRN for BP >180/100 (7) Nutrition, metabolism, and development symptoms ICD Codes: R63.8 - Other symptoms and signs concerning food and fluid intake Plan: Diet: NPO, will advance to renal diet Fluids: not indicated at this time Electrolytes: monitor and replace as needed vitals q4h, monitor I & Os, Physician Certification 2 Midnight Certification Type: Admission for Inpatient Services Order for Inpatient Services The services are ordered in accordance with Medicare regulations or non- Medicare payer requirements, as applicable. In the case of services not specified as inpatient-only, they are appropriately provided as inpatient services in accordance with the 2-midnight benchmark. Estimated LOS (days): 2 2 days is the estimated time the patient will need to remain in the hospital, assuming treatment plan goals are met and no additional complications. Post-Hospital Plan: Not yet determined Problem Qualifiers (1) Hemorrhage of arteriovenous fistula: Qualified Codes: T82.838A - Hemorrhage due to vascular prosthetic devices, implants and grafts, initial encounter (2) Diabetes: Benjy Adams MD Aug 02, 2017 21:32
[2017-08-02] MEDS: ATORVASTATIN 40 MG TAB PO SCH (22:35)
[2017-08-02] MEDS: LABETALOL HCL 200 MG TAB PO SCH (22:35)
[2017-08-03] VITALS (11 sets, daily range): BP systolic 102–162; BP diastolic 55–73; PULSE 57–76; RESP 14–18; TEMP 96.6–99.6; O2SAT 91–99
[2017-08-03 07:22] LABS: AUTOMATED NEUTROPHIL # 6.2 TH/MM3 (1.8-7.7); BASOPHIL # 0.1 TH/MM3 (0-0.2); BASOPHIL % 0.7 % (0.0-2.0); EOSINOPHIL # 0.3 TH/MM3 (0-0.4); EOSINOPHIL % 3.7 % (0.0-4.0); HEMATOCRIT 32.1 % (39.0-51.0); HEMOGLOBIN 10.3 GM/DL (13.0-17.0); LYMPH % 9.4 % (9.0-44.0); LYMPHOCYTE # 0.8 TH/MM3 (1.0-4.8); MEAN CELL VOLUME 77.7 FL (80.0-100.0); MEAN CORPUSCULAR HGB CONC 32.2 % (32.0-36.0); MONO % 8.1 % (0.0-8.0); MONOCYTE # 0.7 TH/MM3 (0-0.9); NEUT % 78.1 % (16.0-70.0); PLATELET COUNT 214 TH/MM3 (150-450); RED BLOOD COUNT 4.13 MIL/MM3 (4.50-5.90); RED CELL DISTRIBUTION WIDTH 20.6 % (11.6-17.2)
[2017-08-03 07:50] LABS: BICARBONATE 28.5 MEQ/L (21.0-32.0); CALCIUM 8.6 MG/DL (8.5-10.1); CREATININE 9.81 MG/DL (0.60-1.30)
[2017-08-03] MEDS: INSULIN ASPART SUPPLEMENTAL SCALE SQ SCH ×4 (07:58→21:06)
[2017-08-03] MEDS: SODIUM CHLORIDE 0.9% FLUSH 10 ML FLUSH IV FLUSH SCH (08:38)
[2017-08-03] MEDS: LABETALOL HCL 200 MG TAB PO SCH ×2 (08:48→17:08)
--- NOTE | 2017-08-03 09:22 | HHI.NPPN ---
Subjective History of Present Illness This patient is an 82-year-old male with a history of end-stage renal disease, diabetes mellitus, hypertension, CHF improve or vascular disease with previous placement of a AV dialysis fistula. Patient was at the dialysis facility and apparently there was a significant blood loss from his AV dialysis access. Per vascular surgeon there appeared to be a scabbed area overlying the access which gave way. Documented blood loss of about 400 MLS. The access has been repaired but the vascular surgeon as indicated he cannot be utilized for about 2-3 weeks. Hemodialysis Vas-Cath is placed for dialysis today. Patient was seen postprocedure. Interval History Pt feeling OK today. Had HD last evening post AVF repair. No complaints today. Review of Systems General General Remarks No complaints Objective Data Data Vital Signs Date Time Temp Pulse Resp B/P (MAP) Pulse Ox O2 Delivery O2 Flow Rate FiO2 08/03/17 00:00 97.9 67 14 162/73 (102) 98 08/02/17 20:08 99 21 08/02/17 20:00 97.7 66 14 163/72 (102) 99 08/02/17 15:00 95.1 53 19 149/72 (97) 99 08/02/17 14:30 97.9 51 20 153/65 (94) 100 Nasal Cannula 2 08/02/17 14:00 51 20 153/65 (94) 100 Nasal Cannula 2 08/02/17 13:45 50 20 141/69 (93) 100 Nasal Cannula 2 08/02/17 13:30 51 20 135/65 (88) 91 Nasal Cannula 2 08/02/17 13:15 53 20 140/68 (92) 100 Nasal Cannula 2 08/02/17 13:09 97.4 52 20 143/69 100 08/02/17 12:55 97.8 59 20 155/74 (101) 98 Nasal Cannula 2 08/02/17 10:35 08/02/17 10:35 97.3 62 15 166/78 100 08/02/17 10:30 62 12 169/81 (110) 99 Nasal Cannula 2.00 08/02/17 10:24 98.0 61 18 159/74 100 08/02/17 10:00 63 11 159/74 (102) 97 Nasal Cannula 2.00 -: 08/03/17 0632 08/03/17 0632 Imaging Last Impressions Chest X-Ray 1/29/18 0000 Signed Impressions: Service Date/Time: Wednesday, August 02, 2017 09:53 - CONCLUSION: 1. Interstitial and alveolar opacities with likely a combination of atelectasis/infiltrate right lower lobe given volume loss. Treatment and followup to resolution recommended. Kevin Bradford MD Central Venous Line 08/02/17 0000 Signed Impressions: Service Date/Time: Wednesday, August 02, 2017 17:10 - CONCLUSION: Uncomplicated line placement as above. Blayne Luis Jr., MD Catheter Placement X-Ray 08/02/17 0000 Signed Impressions: Service Date/Time: Wednesday, August 02, 2017 17:10 - CONCLUSION: Access to the right internal jugular vein shows a subclavian stent crossing the confluence of the internal jugular vein preventing central line placement on this side. Blayne Luis Jr., MD Medication Review Current Medications Medications (Trade) Dose Ordered Sig/Marisol Route Start Time Stop Time Status Last Admin (NS Flush) 2 ml UNSCH PRN IVF 08/02/17 07:30 Miscellaneous Information ALL NURSING DEPARTME... UNSCH PRN .XX 08/02/17 12:51 08/03/17 12:50 Sodium Chloride 1,000 ml @ 0 mls/hr Q0M PRN OTHER 08/02/17 15:27 (Heparin Inj) 8,000 units UNSCH PRN IV FLUSH 08/02/17 15:30 Sodium Chloride 1,000 ml @ 200 mls/hr Q5H PRN IV 08/02/17 15:27 Sodium Chloride 1,000 ml @ 0 mls/hr Q0M PRN OTHER 08/02/17 15:27 (Mannitol Inj) 12.5 gm UNSCH PRN IV 08/02/17 15:30 Albumin Human 100 ml @ 60 mls/hr UNSCH PRN IV 08/02/17 15:30 (NS Flush) 5 ml UNSCH PRN IV FLUSH 08/02/17 15:30 (Heparin Inj) UNSCH PRN .XX 08/02/17 15:30 (Gentamicin Inj) 20 mg UNSCH PRN OTHER 08/02/17 15:30 (Zofran Inj) 4 mg UNSCH PRN IV PUSH 08/02/17 15:30 (Tylenol) 650 mg UNSCH PRN PO 08/02/17 15:30 (Benadryl) 25 mg UNSCH PRN PO 08/02/17 15:30 (Nitrostat Sl) 0.4 mg UNSCH PRN SL 08/02/17 15:30 (Catapres) 0.1 mg UNSCH PRN PO 08/02/17 15:30 (Gelfoam 12 Mm/7 Mm Top) 1 foam UNSCH PRN TOP 08/02/17 15:30 (Norvasc) 10 mg DAILY PO 08/02/17 16:30 08/03/17 08:46 (Lipitor) 40 mg HS PO 08/02/17 21:00 08/02/17 22:35 (Trandate) 200 mg BID PO 08/02/17 21:00 08/03/17 08:48 (Tylenol) 650 mg Q6H PRN PO 08/02/17 16:30 ([place] 5-325 Mg) 1 tab Q4H PRN PO 08/02/17 16:30 (Morphine Inj) 1 mg Q3H PRN IV PUSH 08/02/17 16:30 (D50w (Vial) Inj) 50 ml UNSCH PRN IV PUSH 08/02/17 16:45 (Glucagon Inj) 1 mg UNSCH PRN OTHER 08/02/17 16:45 (NovoLOG SUPPLEMENTAL SCALE) 1 ACHS SLIDING SCALE SQ 08/02/17 17:00 (NS Flush) DAILY IV FLUSH 08/03/17 09:00 (NS Flush) UNSCH PRN IV FLUSH 08/02/17 17:00 (NS Flush) UNSCH PRN IV FLUSH 08/02/17 17:00 (Heparin Inj) UNSCH PRN IV FLUSH 08/02/17 17:00 Physical Exam General Appearance: No Acute Distress, Comfortable Eyes Eye Exam: Pupils Equal Throat Throat Exam: Oral Mucosa [place] & Moist Neck Neck Exam: Neck Supple, Trachea Midline Pulmonary Resp Exam: Clear Bilaterally, Breath Sounds Equal Cardiology CV Exam: Regular, Normal Sinus Rhythm Gastrointestinal/Abdomen GI Exam: Soft, Non-Tender Integumentary Skin Exam: Clear, Warm Extremeties Extremities Exam: No Edema Neurologic Neuro Exam: Alert, Awake Assessment/Plan Problem List: (1) End-stage renal disease on hemodialysis ICD Codes: N18.6 - End stage renal disease; Z99.2 - Dependence on renal dialysis Status: Chronic Plan: Will plan for PermCath placement in the AM Continue HD MWF as per outpatient schedule. Medication should be adjusted for his end-stage renal disease when indicated. Avoid gadolinium. (2) Hemorrhage of arteriovenous fistula ICD Codes: T82.838A - Hemorrhage due to vascular prosthetic devices, implants and grafts, initial encounter Status: Acute Plan: As above. (3) Anemia of renal disease ICD Codes: D63.1 - Anemia in chronic kidney disease Status: Chronic Plan: Continue Epogen for anemia renal disease. 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
--- NOTE | 2017-08-03 10:26 | HHI.FPPN ---
Subjective Remarks Patient pulled out central line per nurse, otherwise no other events overnight. Pt doing well this AM. Going for Perm Cath this morning. Denies CP, SOB, and N/ V. (Charito Beatty MD R1) Objective Vitals Vital Signs Date Time Temp Pulse Resp B/P (MAP) Pulse Ox O2 Delivery O2 Flow Rate FiO2 08/03/17 09:43 98 08/03/17 08:00 99.6 73 18 160/71 (100) 98 08/03/17 00:00 97.9 67 14 162/73 (102) 98 08/02/17 20:08 99 21 08/02/17 20:00 97.7 66 14 163/72 (102) 99 08/02/17 15:00 95.1 53 19 149/72 (97) 99 08/02/17 14:30 97.9 51 20 153/65 (94) 100 Nasal Cannula 2 08/02/17 14:00 51 20 153/65 (94) 100 Nasal Cannula 2 08/02/17 13:45 50 20 141/69 (93) 100 Nasal Cannula 2 08/02/17 13:30 51 20 135/65 (88) 91 Nasal Cannula 2 08/02/17 13:15 53 20 140/68 (92) 100 Nasal Cannula 2 08/02/17 13:09 97.4 52 20 143/69 100 08/02/17 12:55 97.8 59 20 155/74 (101) 98 Nasal Cannula 2 08/02/17 10:35 08/02/17 10:35 97.3 62 15 166/78 100 08/02/17 10:30 62 12 169/81 (110) 99 Nasal Cannula 2.00 I/O 08/02/17 08/02/17 08/02/17 08/03/17 08/03/17 08/03/17 07:00 15:00 23:00 07:00 15:00 23:00 Intake Total 1466 ml 0 ml Output Total 150 ml 3000 ml Balance 1316 ml -3000 ml 0 ml Intake Oral 0 ml Packed Cells 800 ml Platelets 241 ml Blood Product IV Normal Saline Flush 25 ml Other 400 ml Output Hemodialysis 3000 ml Estimated Blood Loss 150 ml # Voids 1 # Bowel Movements 0 (Charito Betaty MD R1) Result Diagram: 08/03/17 0632 08/03/17 0632 Objective Remarks GENERAL: pleasant, lying in bed, well-nourished, well-developed patient, lying in bed, in no apparent distress. CARDIOVASCULAR: Regular rate and rhythm without murmurs, gallops, or rubs. RESPIRATORY: Clear to auscultation. Breath sounds equal bilaterally. No wheezes , rales, or rhonchi. CHEST: Vas-Cath in place GASTROINTESTINAL: Abdomen soft, non-tender, nondistended. No hepato-splenomegaly , or palpable masses. No guarding. MUSCULOSKELETAL:right arm wrapped up in amanda bandage NEUROLOGICAL: Awake, alert, oriented x 3 (Charito Beatty MD R1) A/P Assessment and Plan 82yr old w/ DM, HTN, CHF, and ESRD on dialysis admitted for AV fistula bleed. Hemodialysis Vas-Cath placed 08/02. PermCath to be place today. Discharge Planning PermCath placed today Continue HD MWF as per outpatient schedule 3008 form completed Possible discharge today (Charito Beatty MD R1) Attending Attestation Patient examined and case discussed with resident physicians. I have read the above note and agree with the assessment/plan as discussed with me. I was involved in all medical decision making for this patient. Benjy Adams MD (Benjy Adams MD) Problem List: (1) Hemorrhage of arteriovenous fistula ICD Codes: T82.838A - Hemorrhage due to vascular prosthetic devices, implants and grafts, initial encounter Status: Acute Plan: Vascular consulted. AV fistula repair 08/03. Vascular surgeon indicated that he cannot utilized it for 2-3 weeks. Nephrology consulted, recs apprecited Hemodialysis Vas-Cath placed 08/03. PermCath to be placed today. Continue HD MWF as per outpatient schedule s/p 2 units of RBC and 1 platelets on 08/02 (2) End-stage renal disease on hemodialysis ICD Codes: N18.6 - End stage renal disease; Z99.2 - Dependence on renal dialysis Status: Chronic Plan: As above. (3) Anemia of renal disease ICD Codes: D63.1 - Anemia in chronic kidney disease Status: Chronic Plan: Continue Epogen (4) Diabetes ICD Codes: E11.9 - Type 2 diabetes mellitus without complications Plan: -Low dose SS (5) HLD (hyperlipidemia) ICD Codes: E78.5 - Hyperlipidemia, unspecified Plan: -Continue Atorvastatin 40mg HS (6) HTN (hypertension) ICD Codes: I10 - Essential (primary) hypertension Plan: -Continue home HTN meds: Amlodipine 10mg PO daily and Labetalol 200mg PO BID -Clonidine 0.1mg PO PRN for BP >180/100 (7) Nutrition, metabolism, and development symptoms ICD Codes: R63.8 - Other symptoms and signs concerning food and fluid intake Plan: Diet: NPO, will change after PermCath Fluids: not indicated at this time Electrolytes: monitor and replace as needed vitals q4h, monitor I & Os, (Charito Beatty MD R1) Problem Qualifiers (1) Hemorrhage of arteriovenous fistula: Qualified Codes: T82.838A - Hemorrhage due to vascular prosthetic devices, implants and grafts, initial encounter (2) Diabetes: Charito Beatty MD R1 Aug 03, 2017 10:25 Benjy Adams MD Aug 03, 2017 16:19
[2017-08-03] MEDS ORDERED: LABE200T2 PO (12:59)
--- NOTE | 2017-08-03 13:00 | HHI.DCPOC ---
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 Avoid second hand smoke Call the 24-hour hour crisis hotline for domestic abuse at Jairo Lang MD R2 Aug 03, 2017 13:00
[2017-08-03] MEDS ORDERED: MIDAZOLAM HCL 2 MG/2 ML VIAL ONE ×2 (14:15)
[2017-08-03] MEDS ORDERED: ceFAZolin 2 GM PREMIX 50 ML ONE (14:25)
--- NOTE | 2017-08-03 15:22 | PD.RAD ---
Post Procedure Progress Note Pre Procedure Diagnosis: (1) End-stage renal disease on hemodialysis Post Procedure Diagnosis: (1) End-stage renal disease on hemodialysis Procedure Date: Aug 03, 2017 Supervising Radiologist: Blayne Luis JR Proceduralist/Assist: Mercedes Presley, RT(R)(), Fernanda Cole RT(R) Anesthesia: Conscious Sedation Plan of Activity Patient to Unit: ROPU Patient Condition: Good See PACS Report for procedural detail/treatment Central Venous Access Device Procedure 1 Left Internal Jugular Hemodialysis Catheter Tunneled Placement dual lumen [place]: 15 Findings: Converted left IJ vascath to Permcath. This functions well and is ready to use. Plan Remove sutures associated with the permcath in 1-2 weeks Jr. Toby,Blayne Andrade MD Aug 03, 2017 15:22
--- NOTE | 2017-08-03 15:27 | PD.CAR.PN ---
CVT Progress Note Subjective/Hospital Course: 08/03/17 Patient status post repair and reconstruction of a bleeding right AV fistula of the upper arm Patient is excellent distal pulses hand is warm Dressing is intact and we'll leave original dressing total tomorrow and then look how the fistula is healing AV fistula will not be able to be utilized for at least 3-4 weeks and in the meantime patient will require Vas-Cath/permacath access Grateful for Dr. Luis for placing a nice Vas-Cath yesterday Will follow Objective: Vital Signs Date Time Temp Pulse Resp B/P (MAP) Pulse Ox O2 Delivery O2 Flow Rate FiO2 08/03/17 15:20 97.5 72 18 145/65 (91) 96 08/03/17 12:00 98.2 73 17 152/70 (97) 92 08/03/17 09:43 98 08/03/17 08:00 99.6 73 18 160/71 (100) 98 08/03/17 00:00 97.9 67 14 162/73 (102) 98 08/02/17 20:08 99 21 08/02/17 20:00 97.7 66 14 163/72 (102) 99 Labs: Laboratory Tests Test 08/03/17 06:32 White Blood Count 8.0 TH/MM3 (4.0-11.0) Red Blood Count 4.13 MIL/MM3 (4.50-5.90) Hemoglobin 10.3 GM/DL (13.0-17.0) Hematocrit 32.1 % (39.0-51.0) Mean Corpuscular Volume 77.7 FL (80.0-100.0) Mean Corpuscular Hemoglobin 25.0 PG (27.0-34.0) Mean Corpuscular Hemoglobin Concent 32.2 % (32.0-36.0) Red Cell Distribution Width 20.6 % (11.6-17.2) Platelet Count 214 TH/MM3 (150-450) Mean Platelet Volume 7.0 FL (7.0-11.0) Neutrophils (%) (Auto) 78.1 % (16.0-70.0) Lymphocytes (%) (Auto) 9.4 % (9.0-44.0) Monocytes (%) (Auto) 8.1 % (0.0-8.0) Eosinophils (%) (Auto) 3.7 % (0.0-4.0) Basophils (%) (Auto) 0.7 % (0.0-2.0) Neutrophils # (Auto) 6.2 TH/MM3 (1.8-7.7) Lymphocytes # (Auto) 0.8 TH/MM3 (1.0-4.8) Monocytes # (Auto) 0.7 TH/MM3 (0-0.9) Eosinophils # (Auto) 0.3 TH/MM3 (0-0.4) Basophils # (Auto) 0.1 TH/MM3 (0-0.2) CBC Comment DIFF FINAL Differential Comment Blood Urea Nitrogen 34 MG/DL (7-18) Creatinine 9.81 MG/DL (0.60-1.30) Random Glucose 65 MG/DL (74-106) Calcium Level 8.6 MG/DL (8.5-10.1) Sodium Level 135 MEQ/L (136-145) Potassium Level 5.0 MEQ/L (3.5-5.1) Chloride Level 98 MEQ/L (98-107) Carbon Dioxide Level 28.5 MEQ/L (21.0-32.0) Anion Gap 9 MEQ/L (5-15) Estimat Glomerular Filtration Rate 5 ML/MIN (>89) Result Diagram: 08/03/17 0632 08/03/17 0632 Devaughn Romero MD Aug 03, 2017 15:27
[2017-08-03] MEDS ORDERED: HEPARIN SODIUM - IV 2,000 UNITS/2 ML VIAL IV FLUSH PRN (15:30)
[2017-08-03] MEDS ORDERED: SODIUM CHLORIDE 0.9% FLUSH 10 ML FLUSH IV FLUSH PRN (15:30)
--- NOTE | 2017-08-03 15:34 | RADRPT ---
EXAM DATE/TIME: 08/03/2017 15:37 [place] COMPARISON: No previous studies available for comparison. INDICATIONS : Patient presents with a temporary dialysis catheter in need of a permanent catheter. MEDICAL HISTORY : DM HTN HLD CHF COPD CKD Anemia GERD ESRD on dialysis PVD Anxiety Hx of DVT Hx of CVA SURGICAL HISTORY : Placement and AV dialysis fistula 2013 ENCOUNTER: Sequella ACUITY: 1 day PAIN SCORE: 0/10 FLUORO TIME: 0.7 minutes IMAGE SERIES: 1 SEDATION TIME: 30 ACCESS: Left internal jugular vein SEDATION: 1.) 1 mg midazolam (Versed) IV 2.) 50 mcg fentanyl (Sublimaze) IV Prophylactic antibiotics were administered with appropriate pre-procedure timing. Vancomycin within 2 hours of procedure, Ancef (or alternative) within 1 hour of procedure. DEVICE: 1. 15 [place] dual lumen 27 cm Chin catheter II PROCEDURE : 1. Dialysis catheter placement. 2. Conscious sedation with continuous EKG and oximetry monitoring. The risks, benefits and alternatives to the procedure were explained and verbal and written consent w as obtained. The site was prepped in sterile fashion. Full sterile technique was used, including ca p, mask, sterile gloves and gown and a large sterile sheet. Hand hygiene and 2% chlorhexidine and/or betadine/alcohol prep was utilized per protocol for cutaneous antisepsis. The skin and subcutaneous tissues were infiltrated with local anesthetic solution. With fluoroscopic guidance a dermatotomy was created using the existing venous access. A subcutaneou s tunnel was created in a retrograde fashion the catheter was pulled through the tunnel. The cathete r was flushed and assembled and locked with heparin. The catheter was sutured in place. Conscious sedation was performed with the prescribed dosages and duration as above in the presence of an independent trained radiology nurse to assist in the monitoring of the patient. EKG and oximetry remained stable throughout the procedure. The patient tolerated the procedure well and there were n o complications. The patient was sent to post anesthesia recovery in stable condition. CONCLUSION: Uncomplicated Dialysis catheter placement as above. Blayne Luis Jr., MD on August 03, 2017 at 15:31 Board Certified Radiologist. This report was verified electronically.
[2017-08-03 19:32] LABS: AUTOMATED NEUTROPHIL # 5.3 TH/MM3 (1.8-7.7); BASOPHIL % 0.7 % (0.0-2.0); EOSINOPHIL # 0.3 TH/MM3 (0-0.4); EOSINOPHIL % 4.3 % (0.0-4.0); HEMATOCRIT 33.8 % (39.0-51.0); HEMOGLOBIN 11.2 GM/DL (13.0-17.0); LYMPH % 12.5 % (9.0-44.0); LYMPHOCYTE # 0.9 TH/MM3 (1.0-4.8); MEAN CELL VOLUME 77.5 FL (80.0-100.0); MEAN CORPUSCULAR HEMOGLOBIN 25.6 PG (27.0-34.0); MEAN CORPUSCULAR HGB CONC 33.1 % (32.0-36.0); MEAN PLATELET VOLUME 6.7 FL (7.0-11.0); MONOCYTE # 0.7 TH/MM3 (0-0.9); NEUT % 72.5 % (16.0-70.0); PLATELET COUNT 204 TH/MM3 (150-450); RED BLOOD COUNT 4.35 MIL/MM3 (4.50-5.90); RED CELL DISTRIBUTION WIDTH 20.5 % (11.6-17.2); WHITE BLOOD COUNT 7.2 TH/MM3 (4.0-11.0)
--- NOTE | 2017-08-03 20:54 | MP ---
cc: DEVAUGHN SAMPSON MD DATE OF SURGERY 08/02/2017 PREOPERATIVE DIAGNOSES 1. Bleeding AV fistula of the right arm. 2. Hypotension. 3. Anemia. POSTOPERATIVE DIAGNOSES 1. Bleeding AV fistula of the right arm. 2. Hypotension. 3. Anemia. OPERATIVE PROCEDURE Repair of the bleeding AV fistula with control of structure. SURGEON Dr. Sampson ANESTHESIA General ESTIMATED BLOOD LOSS 150 mL INDICATIONS FOR PROCEDURE This unfortunate 82-year-old male presented to emergency room with a massive bleeding from the right arm. The patient has an AV fistula in the right upper arm and this apparently started bleeding. There was difficulty controlling this in the ER and finally it was controlled with a clamp and dressing. The patient was taken to the operating room immediately. DETAILS The patient prepped and draped usual fashion. Dressing removed and the area was prepped around the bleeding site while holding pressure on it. The area is now exposed. The patient has indeed a large rent in the AV fistula which is about 1.2 cm long. This is of course massively bleeding arterial blood. While holding pressure on it the proximal and distal end of the fistula were identified and the first one circled by making small incision on the medial aspect of the upper arm, I accessed the part of the vessel that enters into the brachial artery. A vessel loop was placed around it. Now distally the venous end of the fistula is attended and vessel loop was placed around this. Once both are on, profunda clamps were placed and then pressure is released. There is no flow now in the fistula. The fistula tract is irrigated with saline and examined. The patient indeed has a very thin skin overlying this and then essentially the vein underneath. This has been probably stuck too many times and finally eroded. The layers of the vein are now dissected from the skin and then it is closed separately with 5-0 Prolene for the vein and then 3-0 Prolene for the skin interrupted stitch. This nicely controlled the bleeding and repairs the whole tract. Vessel loops were now removed and then incisions were closed with 4-0 Monocryl. Dressing is applied. It should be noted that at this point fistula should not be used. In about 2 weeks when it is all healed up and needles can be inserted but higher up into it and not this close to the eroded part. The patient will have a vas cath placed temporarily. Devaughn RSOE /4:54 PM /8:37 PM
[2017-08-03] MEDS: ATORVASTATIN 40 MG TAB PO SCH (21:07)
[2017-08-04 01:55] VITALS: BP 152/66; PULSE 73; O2SAT 92
[2017-08-04] MEDS: LABETALOL HCL 200 MG TAB PO SCH ×2 (02:02→09:18)
[2017-08-04 07:25] LABS: MEAN CORPUSCULAR HEMOGLOBIN 25.2 PG (27.0-34.0); MEAN CORPUSCULAR HGB CONC 32.3 % (32.0-36.0); MEAN PLATELET VOLUME 7.5 FL (7.0-11.0); PLATELET COUNT 221 TH/MM3 (150-450); RED BLOOD COUNT 4.36 MIL/MM3 (4.50-5.90); RED CELL DISTRIBUTION WIDTH 20.2 % (11.6-17.2)
[2017-08-04 07:34] LABS: BICARBONATE 28.4 MEQ/L (21.0-32.0); CALCIUM 8.9 MG/DL (8.5-10.1)
[2017-08-04 07:47] LABS: CREATININE 12.78 MG/DL (0.60-1.30)
[2017-08-04 08:00] VITALS: BP 153/68; PULSE 67; RESP 18; TEMP 97.7; O2SAT 93
[2017-08-04] MEDS: INSULIN ASPART SUPPLEMENTAL SCALE SQ SCH ×2 (08:00→12:00)
--- NOTE | 2017-08-04 08:38 | HHI.FPPN ---
Subjective Remarks No acute events overnight. Pt lying in bed. On 2L NC. Pt doing well, no complaints. Eating well. He reports his last BM was last Wednesday. He denies CP, SOB, N/V and abdominal pain. (Charito Beatty MD R1) Objective Vitals Vital Signs Date Time Temp Pulse Resp B/P (MAP) Pulse Ox O2 Delivery O2 Flow Rate FiO2 08/04/17 01:55 73 152/66 (94) 92 08/03/17 20:00 96.6 57 14 102/55 (71) 91 08/03/17 19:03 98 08/03/17 16:35 76 18 146/62 (90) 98 08/03/17 16:10 70 18 146/64 (91) 99 08/03/17 16:05 70 18 146/64 (91) 99 08/03/17 15:35 71 18 140/67 (91) 96 08/03/17 15:20 97.5 72 18 145/65 (91) 96 08/03/17 12:00 98.2 73 17 152/70 (97) 92 08/03/17 09:43 98 I/O 08/03/17 08/03/17 08/03/17 08/04/17 08/04/17 08/04/17 07:00 15:00 23:00 07:00 15:00 23:00 Intake Total 0 ml 0 ml 620 ml Output Total 0 ml Balance 0 ml 0 ml 620 ml Intake Oral 0 ml 0 ml 620 ml Output Urine Total 0 ml # Voids 1 1 # Bowel Movements 0 0 0 (Charito Beatty MD R1) Result Diagram: 08/04/1762608/04/17 0627 Objective Remarks GENERAL: pleasant, lying in bed, well-nourished, well-developed patient, lying in bed, in no apparent distress. CARDIOVASCULAR: Regular rate and rhythm without murmurs, gallops, or rubs. RESPIRATORY: Clear to auscultation. Breath sounds equal bilaterally. No wheezes , rales, or rhonchi. CHEST: Vas-Cath in place GASTROINTESTINAL: Abdomen soft, non-tender, slightly distended. No hepato- splenomegaly, or palpable masses. No guarding. MUSCULOSKELETAL:right arm wrapped up in amanda bandage NEUROLOGICAL: Awake, alert, oriented x 3 (Charito Beatty MD R1) A/P Assessment and Plan 82yr old w/ DM, HTN, CHF, and ESRD on dialysis admitted for AV fistula bleed. PermCath placed 08/03. Discharge Planning PermCath placed 08/04 LONGTERM form completed Plan to discharge today after HD Home Health PT (Charito Beatty MD R1) Attending Attestation Pt. examined and case discussed with resident physicians. I have read the above note and agree with the assessment and plan as discussed with me. I was involved in all medical decision making for this patient. Benjy Adams MD (Benjy Adams MD) Problem List: (1) Hemorrhage of arteriovenous fistula ICD Codes: T82.838A - Hemorrhage due to vascular prosthetic devices, implants and grafts, initial encounter Status: Acute Plan: Vascular consulted. AV fistula repair 08/03. Vascular surgeon indicated that he cannot utilized it for 2-3 weeks. Nephrology consulted, appreciated recs. PermCath placed 08/03. HD today s/p 2 units of RBC and 1 platelets on 08/02 (2) End-stage renal disease on hemodialysis ICD Codes: N18.6 - End stage renal disease; Z99.2 - Dependence on renal dialysis Status: Chronic Plan: As above. (3) Anemia of renal disease ICD Codes: D63.1 - Anemia in chronic kidney disease Status: Chronic Plan: Continue Epogen (4) Diabetes ICD Codes: E11.9 - Type 2 diabetes mellitus without complications Plan: -Low dose SS (5) HLD (hyperlipidemia) ICD Codes: E78.5 - Hyperlipidemia, unspecified Plan: -Continue Atorvastatin 40mg HS (6) HTN (hypertension) ICD Codes: I10 - Essential (primary) hypertension Plan: -Continue home HTN meds: Amlodipine 10mg PO daily and Labetalol 200mg PO BID -Clonidine 0.1mg PO PRN for BP >180/100 (7) Nutrition, metabolism, and development symptoms ICD Codes: R63.8 - Other symptoms and signs concerning food and fluid intake Plan: Diet: Renal Diet Fluids: not indicated at this time Electrolytes: monitor and replace as needed vitals q4h, monitor I & Os, (Charito Beatty MD R1) Problem Qualifiers (1) Hemorrhage of arteriovenous fistula: Qualified Codes: T82.838A - Hemorrhage due to vascular prosthetic devices, implants and grafts, initial encounter (2) Diabetes: Charito Beatty MD R1 Aug 04, 2017 08:38 Benjy Adams MD Aug 04, 2017 20:57
--- NOTE | 2017-08-04 08:47 | HHI.FF ---
Face to Face Verification Diagnosis: (1) Renal failure (2) End-stage renal disease on hemodialysis (3) HLD (hyperlipidemia) (4) HTN (hypertension) Physical Therapy Order: Evaluate and Treat, Improve ambulation, Strength and gait training Home Health Nursing Order: Oxygen administration education Wound care and dressing changes (Dressing right arm can be removed and changed daily ) Nursing assessment with vital signs Instructions: Dressing right arm can be removed and changed daily Stitches will remain in for at least 3 weeks and the fistula cannot be utilized until further notice probably approximately 4 weeks I have seen patient Victor Manuel Root on 08/04/17. My clinical findings support the need for the requested home health care services because: Ltd mobility - disease progression Deconditioned w/ increased weakness Limited ability to care for self High risk of falls I certify that my clinical findings support that this patient is homebound because: Post-op weakness Hx COPD- exertion dyspnea/weakness Unsteady gait/balance Unsafe to leave home unassisted Charito Beatty MD R1 Aug 04, 2017 08:47 Jairo Lang MD R2 Aug 04, 2017 16:25
[2017-08-04] MEDS ORDERED: DOCUSATE SODIUM 50 MG/SENNA 8.6 MG TAB PO SCH (09:00)
[2017-08-04] MEDS: SODIUM CHLORIDE 0.9% FLUSH 10 ML FLUSH IV FLUSH SCH (09:00)
[2017-08-04] MEDS ORDERED: MAGNESIUM HYDROXIDE SUSP 30 ML CUP PO PRN (10:00)
[2017-08-04] MEDS ORDERED: LACTULOSE SYRUP 20 GM/30 ML CUP PO PRN (10:00)
[2017-08-04] MEDS ORDERED: BISACODYL 10 MG SUPP RECTAL PRN (10:00)
[2017-08-04] MEDS ORDERED: SENNOSIDES 8.6 MG TAB PO PRN (10:00)
--- NOTE | 2017-08-04 11:33 | PD.CAR.PN ---
CVT Progress Note Subjective/Hospital Course: 08/03/17 Patient status post repair and reconstruction of a bleeding right AV fistula of the upper arm Patient is excellent distal pulses hand is warm Dressing is intact and we'll leave original dressing total tomorrow and then look how the fistula is healing AV fistula will not be able to be utilized for at least 3-4 weeks and in the meantime patient will require Vas-Cath/permacath access Grateful for Dr. Luis for placing a nice Vas-Cath yesterday Will follow 08/04/17 Patient doing well at this time Excellent peripheral pulses neurologically intact arm Dressing right arm can be removed and changed daily Stitches will remain in for at least 3 weeks and the fistula cannot be utilized until further notice probably approximately 4 weeks If patient should bleed again he will have to go back to the OR and then fistula will have to be sacrificed but I am trying to avoid this Objective: Vital Signs Date Time Temp Pulse Resp B/P (MAP) Pulse Ox O2 Delivery O2 Flow Rate FiO2 08/04/17 08:00 97.7 67 18 153/68 (96) 93 08/04/17 01:55 73 152/66 (94) 92 08/03/17 20:00 96.6 57 14 102/55 (71) 91 08/03/17 19:03 98 08/03/17 16:35 76 18 146/62 (90) 98 08/03/17 16:10 70 18 146/64 (91) 99 08/03/17 16:05 70 18 146/64 (91) 99 08/03/17 15:35 71 18 140/67 (91) 96 08/03/17 15:20 97.5 72 18 145/65 (91) 96 08/03/17 12:00 98.2 73 17 152/70 (97) 92 Labs: Laboratory Tests Test 08/04/17 06:27 White Blood Count 9.0 TH/MM3 (4.0-11.0) Red Blood Count 4.36 MIL/MM3 (4.50-5.90) Hemoglobin 11.0 GM/DL (13.0-17.0) Hematocrit 34.0 % (39.0-51.0) Mean Corpuscular Volume 78.0 FL (80.0-100.0) Mean Corpuscular Hemoglobin 25.2 PG (27.0-34.0) Mean Corpuscular Hemoglobin Concent 32.3 % (32.0-36.0) Red Cell Distribution Width 20.2 % (11.6-17.2) Platelet Count 221 TH/MM3 (150-450) Mean Platelet Volume 7.5 FL (7.0-11.0) Blood Urea Nitrogen 52 MG/DL (7-18) Creatinine 12.78 MG/DL (0.60-1.30) Random Glucose 101 MG/DL (74-106) Calcium Level 8.9 MG/DL (8.5-10.1) Sodium Level 135 MEQ/L (136-145) Potassium Level 5.1 MEQ/L (3.5-5.1) Chloride Level 97 MEQ/L (98-107) Carbon Dioxide Level 28.4 MEQ/L (21.0-32.0) Anion Gap 10 MEQ/L (5-15) Estimat Glomerular Filtration Rate 4 ML/MIN (>89) Result Diagram: 08/04/17 0627 08/04/17 0627 Devaughn Romero MD Aug 04, 2017 11:33
[2017-08-04 12:00] VITALS: BP 118/58; PULSE 71; RESP 20; TEMP 99.6; O2SAT 97
--- NOTE | 2017-08-04 15:44 | HHI.PR ---
Addendum to Inpatient Note Addendum Reason: Additional Documentation Additional Information S: By nursing staff patient failed earlier respiratory walk test. Per chart review , respiratory therapy reports that patient's oxygenation dropped to 82% on room air upon rising from his bed. Patient was then placed back in bed with 2 L nasal cannula. His oxygenation and increased to 95%. The nursing staff unable to evaluate patient as he is in dialysis. O: GENERAL: Well-nourished, well-developed elderly male lying in bed in no acute distress. SKIN: Warm and dry. No rash. Patient with permacath in place on left chest currently undergoing hemodialysis. EYES: No scleral icterus. No injection or drainage. PERRLA. EOMI. HENT: Normocephalic. Atraumatic. MMM. NECK: No visible JVD or lymphadenopathy. CARDIOVASCULAR: Regular rate and rhythm with no MGR. RESPIRATORY: De creased R lower lobe breath sounds, clear to auscultation anteriorly. No crackles, wheezes, or rhonchi. No increased work of breathing. GASTROINTESTINAL: Abdomen nondistended. MUSCULOSKELETAL: Strength grossly WNL. BACK: Without obvious deformity. NEURO/PSYCH: Afocal. Awake, alert, and oriented x3. S/P: Mr. Root is a 82-year-old male admitted for fistula repair presenting with hypoxemia during respiratory walk test. 1. Hypoxia -Patient currently evaluated in hemodialysis well on 2 L nasal cannula. -Hemodialysis nursing staff notes no shortness of breath, apnea, or complaints of shortness of breath. -Patient currently comfortable in no acute distress without complaints. -Chest x-ray from admission showed interstitial and aVL or opacities with likely a combination of atelectasis and right lower lobe infiltrate given volume loss. -Medical team to order reevaluation of respiratory walk test -If patient passes, patient cleared for discharge back to [facility] -If patient fails, further evaluation with chest x-ray, breathing treatments, and continued incentive spirometry. Patient will then likely be monitored overnight for respiratory status change. Update: Notified by case management and nursing staff, respiratory therapy had corrected documentation after walk test and patient will require 2 L nasal cannula for discharge. Wears placed. Case management reports that patient will be discharged at [address] [facility]. Jairo Lang MD R2 Aug 04, 2017 15:44
[2017-08-04] MEDS ORDERED: OXYGENTANK NAS.CANULA (16:28)
--- NOTE | 2017-08-04 17:47 | HHI.NPPN ---
Subjective History of Present Illness This patient is an 82-year-old male with a history of end-stage renal disease, diabetes mellitus, hypertension, CHF improve or vascular disease with previous placement of a AV dialysis fistula. Patient was at the dialysis facility and apparently there was a significant blood loss from his AV dialysis access. Per vascular surgeon there appeared to be a scabbed area overlying the access which gave way. Documented blood loss of about 400 MLS. The access has been repaired but the vascular surgeon as indicated he cannot be utilized for about 2-3 weeks. Hemodialysis Vas-Cath is placed for dialysis today. Patient was seen postprocedure. Interval History The patient was seen postdialysis today via the new hemodialysis PermCath. Patient is resting comfortably. Review of Systems General General Remarks No complaints Objective Data Data 08/04/17 08/05/17 19:00 07:00 Intake Total 480 ml Output Total 3000 ml Balance -2520 ml Intake Oral 480 ml Hemodialysis 3000 ml # Voids 0 # Bowel Movements 0 Vital Signs Date Time Temp Pulse Resp B/P (MAP) Pulse Ox O2 Delivery O2 Flow Rate FiO2 08/04/17 12:52 2.00 08/04/17 12:00 99.6 71 20 118/58 (78) 97 08/04/17 08:00 97.7 67 18 153/68 (96) 93 08/04/17 01:55 73 152/66 (94) 92 08/03/17 20:00 96.6 57 14 102/55 (71) 91 08/03/17 19:03 98 -: 08/04/17 0627 08/04/17 0627 Physical Exam General Appearance: No Acute Distress, Comfortable Eyes Eye Exam: Pupils Equal Throat Throat Exam: Oral Mucosa [place] & Moist Neck Neck Exam: Neck Supple, Trachea Midline Pulmonary Resp Exam: Clear Bilaterally, Breath Sounds Equal Cardiology CV Exam: Regular, Normal Sinus Rhythm Gastrointestinal/Abdomen GI Exam: Soft, Non-Tender Integumentary Skin Exam: Clear, Warm Extremeties Extremities Exam: No Edema Neurologic Neuro Exam: Alert, Awake Assessment/Plan Problem List: (1) End-stage renal disease on hemodialysis ICD Codes: N18.6 - End stage renal disease; Z99.2 - Dependence on renal dialysis Status: Chronic Plan: Now that hemodialysis PermCath is in place patient clear from renal point of view for discharge. Will continue to use PermCath pending healing of revised AV dialysis fistula which will take approximately 4 weeks. Continue HD MWF as per outpatient schedule. Medication should be adjusted for his end-stage renal disease when indicated. Avoid gadolinium. (2) Hemorrhage of arteriovenous fistula ICD Codes: T82.838A - Hemorrhage due to vascular prosthetic devices, implants and grafts, initial encounter Status: Acute Plan: As above. (3) Anemia of renal disease ICD Codes: D63.1 - Anemia in chronic kidney disease Status: Chronic Plan: Continue Epogen for anemia renal disease. 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
--- NOTE | 2017-08-05 07:17 | HHI.DS ---
Discharge Summary Admission Date Aug 02, 2017 at 10:43 Discharge Date: Aug 04, 2017 Admitting Diagnosis AV fistula bleeding. Anemia. (1) Hemorrhage of arteriovenous fistula Diagnosis: Principal Plan: Vascular consulted. AV fistula repair 08/03. Vascular surgeon indicated that he cannot utilized it for 2-3 weeks. Nephrology consulted, appreciated recs. PermCath placed 08/03. HD today s/p 2 units of RBC and 1 platelets on 08/02 ICD Codes: T82.838A - Hemorrhage due to vascular prosthetic devices, implants and grafts, initial encounter Status: Acute (2) End-stage renal disease on hemodialysis Diagnosis: Secondary Plan: As above. ICD Codes: N18.6 - End stage renal disease; Z99.2 - Dependence on renal dialysis Status: Chronic (3) Anemia of renal disease Diagnosis: Secondary Plan: Continue Epogen ICD Codes: D63.1 - Anemia in chronic kidney disease Status: Chronic (4) Diabetes Diagnosis: Secondary Plan: -Low dose SS ICD Codes: E11.9 - Type 2 diabetes mellitus without complications (5) HLD (hyperlipidemia) Diagnosis: Secondary Plan: -Continue Atorvastatin 40mg HS ICD Codes: E78.5 - Hyperlipidemia, unspecified (6) HTN (hypertension) Diagnosis: Secondary Plan: -Continue home HTN meds: Amlodipine 10mg PO daily and Labetalol 200mg PO BID -Clonidine 0.1mg PO PRN for BP >180/100 ICD Codes: I10 - Essential (primary) hypertension (7) Nutrition, metabolism, and development symptoms Diagnosis: Principal Plan: Diet: Renal Diet Fluids: not indicated at this time Electrolytes: monitor and replace as needed vitals q4h, monitor I & Os, ICD Codes: R63.8 - Other symptoms and signs concerning food and fluid intake Brief History 82 yo M presenting to the ED from dialysis with excessive bleeding from his AV fistula in his right upper arm. He is in dalysis M/W/F and apparently had a large amount of bleeding from the AV fistula site at his visit today, he was unable to complete his dialysis session prior to transport to the ED. He was seen by Dr. Romero and taken for surgical repair of the AV fistula. CBC/BMP: 08/04/17 0627 08/04/17 0627 Significant Findings Laboratory Tests Test 08/02/17 07:24 08/02/17 09:25 08/03/17 06:32 08/03/17 18:50 Red Blood Count 3.78 MIL/MM3 (4.50-5.90) 4.13 MIL/MM3 (4.50-5.90) 4.35 MIL/MM3 (4.50-5.90) Hemoglobin 9.2 GM/DL (13.0-17.0) 10.3 GM/DL (13.0-17.0) 11.2 GM/DL (13.0-17.0) Hematocrit 28.9 % (39.0-51.0) 32.1 % (39.0-51.0) 33.8 % (39.0-51.0) Mean Corpuscular Volume 76.4 FL (80.0-100.0) 77.7 FL (80.0-100.0) 77.5 FL (80.0-100.0) Mean Corpuscular Hemoglobin 24.5 PG (27.0-34.0) 25.0 PG (27.0-34.0) 25.6 PG (27.0-34.0) Red Cell Distribution Width 21.9 % (11.6-17.2) 20.6 % (11.6-17.2) 20.5 % (11.6-17.2) Mean Platelet Volume 6.3 FL (7.0-11.0) 6.7 FL (7.0-11.0) Monocytes (%) (Auto) 8.7 % (0.0-8.0) 8.1 % (0.0-8.0) 10.0 % (0.0-8.0) Eosinophils (%) (Auto) 6.2 % (0.0-4.0) 4.3 % (0.0-4.0) Ovalocytes 1+ (NORMAL) Blood Urea Nitrogen 47 MG/DL (7-18) 34 MG/DL (7-18) Creatinine 12.07 MG/DL (0.60-1.30) 9.81 MG/DL (0.60-1.30) Potassium Level 5.4 MEQ/L (3.5-5.1) Estimat Glomerular Filtration Rate 4 ML/MIN (>89) 5 ML/MIN (>89) Activated Partial Thromboplast Time 31.0 SEC (24.3-30.1) Neutrophils (%) (Auto) 78.1 % (16.0-70.0) 72.5 % (16.0-70.0) Lymphocytes # (Auto) 0.8 TH/MM3 (1.0-4.8) 0.9 TH/MM3 (1.0-4.8) Random Glucose 65 MG/DL (74-106) Sodium Level 135 MEQ/L (136-145) Test 08/04/17 06:27 Red Blood Count 4.36 MIL/MM3 (4.50-5.90) Hemoglobin 11.0 GM/DL (13.0-17.0) Hematocrit 34.0 % (39.0-51.0) Mean Corpuscular Volume 78.0 FL (80.0-100.0) Mean Corpuscular Hemoglobin 25.2 PG (27.0-34.0) Red Cell Distribution Width 20.2 % (11.6-17.2) Blood Urea Nitrogen 52 MG/DL (7-18) Creatinine 12.78 MG/DL (0.60-1.30) Sodium Level 135 MEQ/L (136-145) Chloride Level 97 MEQ/L (98-107) Estimat Glomerular Filtration Rate 4 ML/MIN (>89) PE at Discharge GENERAL: pleasant, lying in bed, well-nourished, well-developed patient, lying in bed, in no apparent distress. CARDIOVASCULAR: Regular rate and rhythm without murmurs, gallops, or rubs. RESPIRATORY: Clear to auscultation. Breath sounds equal bilaterally. No wheezes , rales, or rhonchi. CHEST: Vas-Cath in place GASTROINTESTINAL: Abdomen soft, non-tender, slightly distended. No hepato- splenomegaly, or palpable masses. No guarding. MUSCULOSKELETAL:right arm wrapped up in amanda bandage NEUROLOGICAL: Awake, alert, oriented x 3 Hospital Course Patient was admitted for A-V fistula repair. Vascular surgery within a fistula repair on hospital day one without complications. Postprocedure patient was transfused 2 units of packed red blood cells and 1 unit of platelets for his chronic anemia and acute bleed. Post procedure his hemoglobin and platelets were stable. Patient completed his scheduled Wednesday and Wednesday sessions of hemodialysis with nephrology consulted. Due to the elevated blood pressures patient's labetalol was changed to 200 mg 3 times a day. All other home medications were continued at the time of discharge. Patient was discharged on hospital day 3 with referrals for follow-up with PCP in 3-5 days and nephrology on 08/06/17 for his scheduled hemodialysis as an outpatient. Patient was discharged back to his [facility] ([facility]). Home health orders for continued physical therapy and wound care were placed. Of note, on hospital day 3 patient had increasing shortness of breath with physical therapy with a recorded oxygen desaturation down to the low 80s. Respiratory walk test unable to be fully completed due to desaturation. Once back in bed, patient was started on 2 L nasal cannula which resolved his desaturation to 95%. Respiratory therapy recommended discharge with 2 L nasal cannula. Patient was provided portable oxygen upon discharge. Pt Condition on Discharge: Stable Discharge Disposition: ACLF/YFN Discharge Instructions DIET: Follow Instructions for: Renal Failure Diet Activities you can perform: Weight Bearing as Mikayla Follow up Referrals: Nephrology - 08/06/17 Patient to dialysis on MWF. PCP Follow-up - 3-5 Days New Medications: Oxygen tank (Oxygen tank) 1 Ea Tank LITER LANETTE.CANULA CONTINUOUS for HYPOXEMIA PREVENTION, #2 99 Refills Oxygen Concentrator Portable Gaseous 2 L/min via Nasal Cannula Continuous For 99 months Labetalol (Labetalol) 200 Mg Tab 200 MG PO Q8H, #90 TAB 1 Refill Continued Medications: Acetaminophen (Mapap) 500 Mg Cap 500 MG PO TID, CAP 0 Refills Albuterol 6.7 GM Inh (Proventil Hfa 6.7 GM Inh) 90 Mcg/Act Aer 1 PUFF INH QID PRN for SOB/WHEEZING, #1 INHALER 0 Refills Allopurinol (Allopurinol) 100 Mg Tab 100 MG PO DAILY for Gout, #30 TAB 0 Refills Amlodipine (Amlodipine) 10 Mg Tab 10 MG PO DAILY for Blood Pressure Management, #30 TAB [address] (Aspirin 81) 81 Mg Tabdr 81 MG PO DAILY, TAB 0 Refills Atorvastatin (Atorvastatin) 40 Mg Tab 40 MG PO HS for Cholesterol Management, #30 TAB 0 Refills B-Complex W/ C & Folic Acid (Nephro-Micah) 1 Tab 1 TAB PO DAILY for Nutritional Supplement, #30 TAB 0 Refills Docusate Sodium (Docusate Sodium) 100 Mg Tab 200 MG PO DAILY, TAB Ferrous Sulfate (Ferrous Sulfate) 325 Mg (65 Mg Iron) Tablet 325 MG PO DAILY for Nutritional Supplement, #30 TAB 0 Refills Fluticasone Nasal [place] (Fluticasone Nasal [place]) 50 Mcg/Act Naspr 50 MCG EACH NARE DAILY for Allergy Management, #1 BOTTLE 0 Refills 50 mcg/spray Furosemide (Furosemide) 40 Mg Tab 40 MG PO DAILY, #30 TAB 0 Refills Gabapentin (Gabapentin) 100 Mg Cap 100 MG PO TID, #90 CAP 0 Refills Sevelamer Carbonate (Renvela) 800 Mg Tab 800 MG PO TIDAC for Control phosphorous levels, #90 TAB 0 Refills Tramadol (Tramadol) 50 Mg Tab 50 MG PO TID, TAB 0 Refills [Triamanolone] () 0.1 % TOPICAL BID Discontinued Medications: Labetalol (Labetalol) 200 Mg Tab 200 MG PO BID for Blood Pressure Management, TAB 0 Refills Jairo Lang MD R2 Aug 05, 2017 07:17
== END 2017-08-04 20:29 | DRG 252 ==
LOC: NEPE 07:10 → NEDA 10:43 → N07A 14:49
PROVIDERS: ADMIT Family Medicine; ATTEND Family Medicine
PROC: 30233N1 Transfusion of Nonautologous Red Blood Cells into Peripheral Vein, Percutaneous Approach (ICD-10-PCS; 2017-08-02)
PROC: 30233R1 Transfusion of Nonautologous Platelets into Peripheral Vein, Percutaneous Approach (ICD-10-PCS; 2017-08-02)
PROC: 5A1D70Z Performance of Urinary Filtration, Intermittent, Less than 6 Hours Per Day (ICD-10-PCS; 2017-08-02)
PROC: B544ZZA Ultrasonography of Left Jugular Veins, Guidance (ICD-10-PCS; 2017-08-02)
PROC: 05HN33Z Insertion of Infusion Device into Left Internal Jugular Vein, Percutaneous Approach (ICD-10-PCS; 2017-08-02)
PROC: 03Q70ZZ Repair Right Brachial Artery, Open Approach (ICD-10-PCS; principal; 2017-08-02 10:58)
PROC: 02H633Z Insertion of Infusion Device into Right Atrium, Percutaneous Approach (ICD-10-PCS; 2017-08-03)
PROC: B514ZZA Fluoroscopy of Left Jugular Veins, Guidance (ICD-10-PCS; 2017-08-03)
DX: T82.838A Hemorrhage due to vascular prosthetic devices, implants and grafts, initial encounter (principal); N18.6 End stage renal disease; I13.2 Hypertensive heart and chronic kidney disease with heart failure and with stage 5 chronic kidney disease, or end stage renal disease; I95.9 Hypotension, unspecified; E11.22 Type 2 diabetes mellitus with diabetic chronic kidney disease; E11.51 Type 2 diabetes mellitus with diabetic peripheral angiopathy without gangrene; E87.5 Hyperkalemia; J98.11 Atelectasis; J44.9 Chronic obstructive pulmonary disease, unspecified; E78.5 Hyperlipidemia, unspecified; D63.1 Anemia in chronic kidney disease; K21.9 Gastro-esophageal reflux disease without esophagitis; I50.9 Heart failure, unspecified; R09.02 Hypoxemia; R91.8 Other nonspecific abnormal finding of lung field; E78.00 Pure hypercholesterolemia, unspecified; F41.9 Anxiety disorder, unspecified; Y83.2 Surgical operation with anastomosis, bypass or graft as the cause of abnormal reaction of the patient, or of later complication, without mention of misadventure at the time of the procedure; Z85.46 Personal history of malignant neoplasm of prostate; Z86.718 Personal history of other venous thrombosis and embolism; Z86.73 Personal history of transient ischemic attack (TIA), and cerebral infarction without residual deficits; Z99.2 Dependence on renal dialysis
CPT/HCPCS: 36430; 36556; 36558; 71045; 76937; 77001; 80048; 82948; 85025; 85027; 85610; 85730; 86850; 86900; 86901; 86920; 90935; 93005; 94618; 96374; 99152; 99153; 99291; C1750; C1752; C1769; J0690; J1644; J2150; J2250; J2710; J2720; J3010; P9016; P9035

== ENCOUNTER 2017-08-15 09:49 | Inpatient (IN) | payer MEDICARE ==
[~2017-08-15] VITALS: Ht 170.2 cm; Wt 65.0 kg
[~2017-08-15 09:49] MED LIST changes: +ALBU6.7H INH; +AMLO10TA2 PO; +ASPI1TAB57 PO; +ATOR40TA16 PO; -CLON.1 PO; +DOCU100T9 PO; -ECOT81TA2 PO; -EXTR500C PO; -FERR324T4 PO; +FERR325T18 PO; -FLON0.053; +FLUT50SP EACH NARE; -FURO1TAB93 PO; +FURO40TA PO; +GABA100C4 PO; -GLIP5 PO; +LABE200T2 PO; -LABE300T PO; +MAPA500C PO; +NEPHTAB3 PO; -NORV5TAB PO; +OXYGENTANK NAS.CANULA; -RENA VITE PO; -RENATAB5 PO; +SEVEL800 PO; +TRAM50TA PO; +TRIAMCINOLONE TOPICAL; -ULTR50TA PO; -ZOCO40TA PO
[2017-08-15] MEDS ORDERED: LIDOCAINE 1%/EPINEPHrine 1:100,000 SOLN 30 ML VIAL ONE (09:57)
[2017-08-15 10:03] VITALS: BP 136/65; PULSE 91; RESP 12; O2SAT 100
[2017-08-15 10:13] VITALS: BP 153/66; PULSE 79; RESP 18; TEMP 97.6; O2SAT 100
[2017-08-15] MEDS ORDERED: SODIUM CHLOR 0.9% 250 ML INJ 250 ML IV ONE (10:15)
[2017-08-15] MEDS ORDERED: SODIUM CHLORIDE 0.9% IV ONE (10:30)
[2017-08-15] MEDS ORDERED: DESMOPRESSIN IV ONE (10:30)
[2017-08-15 10:31] VITALS: BP 113/55; PULSE 68; RESP 13; TEMP 98.3
[2017-08-15 10:35] LABS: AUTOMATED NEUTROPHIL # 3.7 TH/MM3 (1.8-7.7); BASOPHIL % 0.8 % (0.0-2.0); EOSINOPHIL # 0.3 TH/MM3 (0-0.4); HEMATOCRIT 26.4 % (39.0-51.0); HEMOGLOBIN 8.1 GM/DL (13.0-17.0); LYMPH % 17.1 % (9.0-44.0); LYMPHOCYTE # 0.9 TH/MM3 (1.0-4.8); MEAN CELL VOLUME 78.1 FL (80.0-100.0); MEAN CORPUSCULAR HEMOGLOBIN 24.1 PG (27.0-34.0); MEAN CORPUSCULAR HGB CONC 30.8 % (32.0-36.0); MEAN PLATELET VOLUME 6.2 FL (7.0-11.0); MONO % 7.4 % (0.0-8.0); MONOCYTE # 0.4 TH/MM3 (0-0.9); NEUT % 68.7 % (16.0-70.0); PLATELET COUNT 225 TH/MM3 (150-450); RED BLOOD COUNT 3.38 MIL/MM3 (4.50-5.90); WHITE BLOOD COUNT 5.4 TH/MM3 (4.0-11.0)
[2017-08-15 10:44] LABS: INTERNATIONAL NORMALIZED RATIO 1.2 RATIO; PROTHROMBIN TIME - PATIENT 11.9 SEC (9.8-11.6)
[2017-08-15 10:48] VITALS: BP 134/61; PULSE 63; RESP 14; TEMP 97.8; O2SAT 100
[2017-08-15 10:51] LABS: ALKALINE PHOSPHATASE 84 U/L (45-117); TOTAL BILIRUBIN ADULT 0.4 MG/DL (0.2-1.0); TOTAL PROTEIN 6.3 GM/DL (6.4-8.2)
--- NOTE | 2017-08-15 10:54 | PD ---
HPI Chief Complaint: Bleeding Time Seen by Provider: 10:11 Travel History International Travel<30 days: No Contact w/Intl Traveler<30days: No Traveled to known affect area: No History of Present Illness HPI Is an 82-year-old male presents to the emergency department bleeding from his AV fistula. Apparently had bleeding about a week and a half ago from the same site and was repaired surgically by . edges are vague. A little bit of bleeding last night it was controlled at the bedside. Started bleeding with profuse bleeding this morning. EMS responded was unable to control bleeding and placed a tourniquet. Patient denies any complaints. Denies blood thinner usage. History Past Medical History Narrative Medical Diabetes PVD End-stage renal disease Paralytic syndrome Hyperlipidemia Hypertension Social History Alcohol Use: No Tobacco Use: No Allergies-Medications (Allergen,Severity, Reaction): Coded Allergies: No Known Allergies (Verified Allergy, Unknown, 08/02/17) Reported Meds & Prescriptions Reported Meds & Active Scripts Active Labetalol (Labetalol HCl) 200 Mg Tab 200 Mg PO Q8H Reported Gabapentin 100 Mg Cap 100 Mg PO TID Furosemide 40 Mg Tab 40 Mg PO DAILY Docusate Sodium 100 Mg Tab 200 Mg PO DAILY Atorvastatin (Atorvastatin Calcium) 40 Mg Tab 40 Mg PO HS Amlodipine (Amlodipine Besylate) 10 Mg Tab 10 Mg PO DAILY Tramadol (Tramadol HCl) 50 Mg Tab 50 Mg PO TID Mapap (Acetaminophen) 500 Mg Cap 500 Mg PO TID Fluticasone Nasal [place] 50 Mcg/Act Naspr 50 Mcg EACH NARE DAILY 50 mcg/spray Proventil Hfa 6.7 GM Inh (Albuterol Sulfate) 90 Mcg/Act Aer 1 Puff INH QID PRN Renvela (Sevelamer Carbonate) 800 Mg Tab 800 Mg PO TIDAC Ferrous Sulfate 325 Mg (65 Mg Iron) Tablet 325 Mg PO DAILY Aspirin 81 (Aspirin) 81 Mg Tabdr 81 Mg PO DAILY Allopurinol 100 Mg Tab 100 Mg PO DAILY Review of Systems ROS Limitations: Clinical Condition Physical Exam Narrative GENERAL: 82-year-old man, appears unwell, little bit diaphoretic, sluggish. SKIN: Cool and clammy. HEAD: Atraumatic. Normocephalic. EYES: Pupils equal and round. No scleral icterus. No injection or drainage. ENT: No nasal bleeding or discharge. Mucous membranes pink and moist. NECK: Trachea midline. No JVD. CARDIOVASCULAR: Regular rate and rhythm. No murmur appreciated. RESPIRATORY: No accessory muscle use. Clear to auscultation. Breath sounds equal bilaterally. GASTROINTESTINAL: Abdomen soft, non-tender, nondistended. Hepatic and splenic margins not palpable. MUSCULOSKELETAL: No obvious deformities. AV fistula on the right side. There is 2 areas of laceration. There is a large bulky bloody bandage initially in place with the tourniquet. When this is removed the proximal medial area of suturing is intact. There is a small area of e openness where there is no active bleeding. The distal lateral incision at the distal and has an area of straight pouring arterial bleeding. This is stopped easily with direct pressure with 1 finger however unable to repair. NEUROLOGICAL: Awake and alert. No obvious cranial nerve deficits. Motor grossly within normal limits. Normal speech. PSYCHIATRIC: Appropriate mood and affect; insight and judgment normal. Data Data Last Documented VS Vital Signs Date Time Temp Pulse Resp B/P (MAP) Pulse Ox O2 Delivery O2 Flow Rate FiO2 08/15/17 10:31 98.3 68 13 113/55 08/15/17 10:13 100 08/15/17 10:03 Non-Rebreather 15.00 Orders Orders Lidocai-Epi 1%-1:100,000 Inj (Xylocaine- (08/15/17 09:57) Type And Screen (08/15/17 09:58) Complete Blood Count With Diff (08/15/17 10:12) Comprehensive Metabolic Panel (08/15/17 10:12) Act Partial Throm Time (Ptt) (08/15/17 10:12) Prothrombin Time / Inr (Pt) (08/15/17 10:12) Iv Access Insert/Monitor (08/15/17 10:12) Red Blood Cells (Rbc) (08/15/17 10:12) Blood Product Administration (08/15/17 10:12) Sodium Chlor 0.9% 250 Ml Inj (Ns 250 Ml (08/15/17 10:15) Desmopressin Inj (Ddavp Inj) (08/15/17 10:30) Labs Laboratory Tests Test 08/15/17 10:20 White Blood Count 5.4 TH/MM3 Red Blood Count 3.38 MIL/MM3 Hemoglobin 8.1 GM/DL Hematocrit 26.4 % Mean Corpuscular Volume 78.1 FL Mean Corpuscular Hemoglobin 24.1 PG Mean Corpuscular Hemoglobin Concent 30.8 % Red Cell Distribution Width 21.0 % Platelet Count 225 TH/MM3 Mean Platelet Volume 6.2 FL Neutrophils (%) (Auto) 68.7 % Lymphocytes (%) (Auto) 17.1 % Monocytes (%) (Auto) 7.4 % Eosinophils (%) (Auto) 6.0 % Basophils (%) (Auto) 0.8 % Neutrophils # (Auto) 3.7 TH/MM3 Lymphocytes # (Auto) 0.9 TH/MM3 Monocytes # (Auto) 0.4 TH/MM3 Eosinophils # (Auto) 0.3 TH/MM3 Basophils # (Auto) 0.0 TH/MM3 CBC Comment AUTO DIFF MDM Medical Decision Making Medical Screen Exam Complete: Yes Emergency Medical Condition: Yes Differential Diagnosis Arterial bleeding AV fistula, anemia, weakness, other Narrative Course Medical decision making [id number] male presents emergency arm with active bleeding from arterial fistula. Tourniquet was placed but there is ongoing oozing bleeding. Tourniquet and bandage were removed. Area of bleeding is identified is a focal area of bleeding in the distal aspect of the lateral incision/suture margin. Attempt was made to repair this with a figure- of-eight suture without good effect. During the initial evaluation, patient became bradycardic, hypotensive with pulse barely detectable, and agonal breathing. He was bagged with the [id number] for a period of about 3-4 minutes. He was treated with atropine. This resolved what appeared to be a vasovagal episode and patient recovered uneventfully. During this episode, was noted the patient had pale, nearly white conjunctiva suggestive of severe anemia. Order was placed for 2 units of emergency release blood. I spoke with Dr. Carrion, vascular surgery who done his previous repair. We will take the patient to the operating room for repair and evaluation. Also recommended DDAVP which was ordered. Admission medicine. Critical Care Narrative Aggregate critical care time was 30 minutes. Time to perform other separately billable procedures was not included in the critical care time. My time did not include minutes spent treating any other patients simultaneously or on activities that did not directly contribute to the patient's treatment. The services I provided to this patient were to treat and/or prevent clinically significant deterioration that could result in: , exsanguination, increased morbidity I provided critical care services requiring my management, as noted below: Chart data review, documentation time, medication orders and management, vital sign assessments/reviewing monitor data, ordering and reviewing lab tests, ordering and interpreting/reviewing x-rays and diagnostic studies, care of the patient and discussion of the patient with the admitting physicians. Diagnosis Primary Impression: Hemorrhage of arteriovenous fistula Admitting Information Admitting Physician Requests: Admit Cal Dumont MD Aug 15, 2017 10:53
[2017-08-15 10:58] LABS: ALT (GPT) 8 U/L (12-78); AST (GOT) 24 U/L (15-37); BICARBONATE 23.5 MEQ/L (21.0-32.0); BLOOD UREA NITROGEN 32 MG/DL (7-18); CALCIUM 8.6 MG/DL (8.5-10.1); CHLORIDE 106 MEQ/L (98-107); CREATININE 9.54 MG/DL (0.60-1.30); GLOMERULAR FILTRATION RATE 5 ML/MIN (>89); GLUCOSE,RANDOM 89 MG/DL (74-106); SODIUM (NA) 139 MEQ/L (136-145)
[2017-08-15] MEDS ORDERED: SODIUM CHLORIDE 0.9% FLUSH 10 ML FLUSH IV FLUSH PRN (11:00)
[2017-08-15] MEDS ORDERED: ONDANSETRON HCL 4 MG/2 ML VIAL IVP PRN (11:00)
[2017-08-15] MEDS ORDERED: NALOXONE HCL 0.4 MG/ML AMP IV PUSH PRN (11:00)
[2017-08-15] MEDS ORDERED: ACETAMINOPHEN 325 MG TAB PO PRN (11:00)
[2017-08-15] MEDS ORDERED: LACTULOSE SYRUP 20 GM/30 ML CUP PO PRN (11:00)
[2017-08-15] MEDS ORDERED: MAGNESIUM HYDROXIDE SUSP 30 ML CUP PO PRN (11:00)
[2017-08-15] MEDS ORDERED: SENNOSIDES 8.6 MG TAB PO PRN (11:00)
[2017-08-15] MEDS ORDERED: BISACODYL 10 MG SUPP RECTAL PRN (11:00)
[2017-08-15] MEDS ORDERED: HEPARIN SODIUM - IV 10,000 UNITS/10 ML VIAL ONE (11:27)
[2017-08-15 11:28] LABS: ACANTHOCYTES OCC (NORMAL); HELMET CELLS OCC (NORMAL); OVALOCYTES 1+ (NORMAL)
[2017-08-15] MEDS ORDERED: ceFAZolin INJ 1,000 MG VIAL ONE (11:31)
[2017-08-15] MEDS ORDERED: HEPARIN SODIUM - SQ 10,000 UNITS/ML VIAL ONE (11:31)
[2017-08-15] MEDS ORDERED: NS 500 ML (EXCEL BAG) INJ 500 ML IV ONE (12:00)
[2017-08-15] MEDS ORDERED: PHENYLEPH/NS 1000 MCG/10 ML SYR IV ONE (12:00)
[2017-08-15] MEDS ORDERED: GLYCOPYRROLATE 1 MG/5 ML SYRINGE IV PUSH ONE (12:00)
[2017-08-15] MEDS ORDERED: ePHEDrine/NS 25 MG/5 ML SYRINGE IV ONE (12:00)
[2017-08-15] MEDS ORDERED: PROPOFOL 200 MG/20 ML AMP IV ONE (12:00)
[2017-08-15] MEDS ORDERED: ONDANSETRON HCL 4 MG/2 ML VIAL IV ONE (12:00)
[2017-08-15] MEDS ORDERED: LIDOCAINE HCL 1% PF 5 ML SYRINGE OTHER ONE (12:00)
[2017-08-15] MEDS ORDERED: PHENYLEPHRINE HCL 10 MG/ML VIAL IV ONE (12:00)
[2017-08-15] MEDS ORDERED: DO NOT ADM ANY ANTICOAGULANT DRUGS PRN (13:00)
[2017-08-15] MEDS ORDERED: MORPHINE SULFATE 2 MG/ML INJ IV PUSH PRN (13:15)
[2017-08-15] MEDS ORDERED: ALBUTEROL SULFATE 90 MCG/ACT HFA 8 GM INHALER INH PRN (13:30)
--- NOTE | 2017-08-15 13:59 | HHI.HP ---
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 He was hospitalized about 2 weeks ago for the same issue. At that time the patient had surgery to stop the bleeding. He started having some bleeding last night, which was controlled. This morning bleeding became more profuse and they were unable to stop the bleeding. A tourniquet was placed by EMS. Vascular surgery was contacted upon patient's arrival to the emergency department. He was taken to the operating room and the bleeding has now stopped. The patient is seen in PACU following surgery. He is drowsy, but awakens and answers questions. Denies pain currently. Review of Systems ROS Limitations: Clinical Condition Constitutional: COMPLAINS OF: Night Sweats, DENIES: Fever, Chills Eyes: DENIES: Blurred vision, Vision loss Ears, nose, mouth, throat: DENIES: Hearing loss Respiratory: DENIES: Cough, Wheezing, Sputum production, Shortness of breath Cardiovascular: DENIES: Chest pain, Palpitations, Dyspnea on Exertion, Lower Extremity Edema Gastrointestinal: DENIES: Abdominal pain, Constipation, Diarrhea, Nausea, Vomiting Genitourinary: DENIES: Urinary frequency, Urinary incontinence, Urgency, Hematuria, Dysuria, Nocturia Musculoskeletal: DENIES: Joint pain, Muscle aches Integumentary: DENIES: Pruritus, Rash Hematologic/lymphatic: DENIES: Bruising Neurologic: DENIES: Headache Past Family Social History Past Medical History End-stage renal disease on hemodialysis Peripheral vascular disease Diabetes mellitus Hyperlipidemia Hypertension GERD History of DVT History of CVA COPD CHF Past Surgical History AV fistula placement for dialysis 2013 Surgical control bleeding from AV fistula July 2017 Reported Medications Labetalol (Labetalol HCl) 200 Mg Tab 200 Mg PO Q8H Gabapentin 100 Mg Cap 100 Mg PO TID Furosemide 40 Mg Tab 40 Mg PO DAILY Docusate Sodium 100 Mg Tab 200 Mg PO DAILY Atorvastatin (Atorvastatin Calcium) 40 Mg Tab 40 Mg PO HS Amlodipine (Amlodipine Besylate) 10 Mg Tab 10 Mg PO DAILY Tramadol (Tramadol HCl) 50 Mg Tab 50 Mg PO TID Mapap (Acetaminophen) 500 Mg Cap 500 Mg PO TID Fluticasone Nasal [place] 50 Mcg/Act Naspr 50 Mcg EACH NARE DAILY 50 mcg/spray Proventil Hfa 6.7 GM Inh (Albuterol Sulfate) 90 Mcg/Act Aer 1 Puff INH QID PRN Renvela (Sevelamer Carbonate) 800 Mg Tab 800 Mg PO TIDAC Ferrous Sulfate 325 Mg (65 Mg Iron) Tablet 325 Mg PO DAILY Aspirin 81 (Aspirin) 81 Mg Tabdr 81 Mg PO DAILY Allopurinol 100 Mg Tab 100 Mg PO DAILY Allergies: Coded Allergies: No Known Allergies (Verified Allergy, Unknown, 08/02/17) Family History Patient denies significant family medical history Social History Denies alcohol, tobacco, or illicit drug use. Physical Exam Vital Signs Vital Signs Date Time Temp Pulse Resp B/P (MAP) Pulse Ox O2 Delivery O2 Flow Rate FiO2 08/15/17 13:30 51 15 122/58 (79) 97 Nasal Cannula 2 08/15/17 13:15 96.7 50 14 117/56 (76) 96 Nasal Cannula 2 08/15/17 13:00 52 14 114/55 (74) 96 Nasal Cannula 2 08/15/17 12:45 96.5 53 15 120/55 (76) 100 Nasal Cannula 3 08/15/17 12:30 55 15 124/59 (80) 100 Simple Mask 6 08/15/17 12:22 96.4 59 14 132/60 (84) 100 Simple Mask 7 08/15/17 12:22 96.4 08/15/17 11:25 08/15/17 10:49 100 Nasal Cannula 2.00 08/15/17 10:48 97.8 63 14 134/61 100 08/15/17 10:31 98.3 68 13 113/55 08/15/17 10:13 97.6 79 18 153/66 100 08/15/17 10:03 91 12 136/65 (88) 100 Non-Rebreather 15.00 08/15/17 09:56 17 100 Bag Valve 15.00 Physical Exam GENERAL: Well-nourished, well-developed male in no acute distress. Under a warming blanket. HEENT: Normocephalic, atraumatic. Pupils equal, round and reactive. Extraocular movements intact. No scleral icterus. No injection or drainage. Oropharynx is clear. Mucous membranes are moist. CARDIOVASCULAR: Regular rate and rhythm without murmurs, gallops, or rubs. RESPIRATORY: Clear to auscultation. No wheezes, rales, or rhonchi. Breathing is non-labored. GASTROINTESTINAL: Abdomen soft, non-tender, nondistended. EXTREMITIES: No lower extremity edema. No calf tenderness. SCDs. PSYCH: Sleeping, but arousable. Drowsy from anesthesia. Laboratory Laboratory Tests Test 08/15/17 10:20 White Blood Count 5.4 Red Blood Count 3.38 Hemoglobin 8.1 Hematocrit 26.4 Mean Corpuscular Volume 78.1 Mean Corpuscular Hemoglobin 24.1 Mean Corpuscular Hemoglobin Concent 30.8 Red Cell Distribution Width 21.0 Platelet Count 225 Mean Platelet Volume 6.2 Neutrophils (%) (Auto) 68.7 Lymphocytes (%) (Auto) 17.1 Monocytes (%) (Auto) 7.4 Eosinophils (%) (Auto) 6.0 Basophils (%) (Auto) 0.8 Neutrophils # (Auto) 3.7 Lymphocytes # (Auto) 0.9 Monocytes # (Auto) 0.4 Eosinophils # (Auto) 0.3 Basophils # (Auto) 0.0 CBC Comment AUTO DIFF Differential Comment AUTO DIFF CONFIRMED Platelet Estimate NORMAL Platelet Morphology Comment NORMAL Ovalocytes 1+ Helmet Cells OCC Acanthocytes OCC Prothrombin Time 11.9 Prothromb Time International Ratio 1.2 Activated Partial Thromboplast Time 27.8 Blood Urea Nitrogen 32 Creatinine 9.54 Random Glucose 89 Total Protein 6.3 Albumin 3.0 Calcium Level 8.6 Alkaline Phosphatase 84 Aspartate Amino Transf (AST/SGOT) 24 Alanine Aminotransferase (ALT/SGPT) 8 Total Bilirubin 0.4 Sodium Level 139 Potassium Level 5.1 Chloride Level 106 Carbon Dioxide Level 23.5 Anion Gap 10 Estimat Glomerular Filtration Rate 5 Result Diagram: 08/15/17 1020 08/15/17 1020 Caprini VTE Risk Assessment Caprin VTE Risk Assessment: Mod/High Risk (score >= 2) VTE Pharm Contraindication: High risk for bleeding Caprini Risk Assessment Model Point Value = 1 Point Value = 2 Point Value = 3 Point Value = 5 Age 41-60 Minor surgery BMI > 25 kg/m2 Swollen legs Varicose veins or History of unexplained or recurrent spontaneous Oral contraceptives or hormone replacement Sepsis (< 1 month) Serious lung disease, including pneumonia (< 1 month) Abnormal pulmonary function Acute myocardial infarction Congestive heart failure (< 1 month) History of inflammatory bowel disease Medical patient at bed rest Age 61-74 Arthroscopic surgery Major open surgery (> 45 min) Laparoscopic surgery (> 45 min) Malignancy Confined to bed (> 72 hours) Immobilizing plaster cast Central venous access Age >= 75 History of VTE Family history of VTE Factor V Leiden Prothrombin [id number] Lupus anticoagulant Anticardiolipin antibodies Elevated serum homocysteine Heparin-induced thrombocytopenia Other congenital or acquired thrombophilia Stroke (< 1 month) Elective arthroplasty Hip, pelvis, or leg fracture Acute spinal cord injury (< 1 month) Prophylaxis Regimen Total Risk Factor Score Risk Level Prophylaxis Regimen 0-1 Low Early ambulation 2 Moderate Order ONE of the following: *Sequential Compression Device (SCD) *Heparin 5000 units SQ BID 3-4 Higher Order ONE of the following medications: *Heparin 5000 units SQ TID *Enoxaparin/Lovenox 40 mg SQ daily (WT < 150 kg, CrCl > 30 mL/min) *Enoxaparin/Lovenox 30 mg SQ daily (WT < 150 kg, CrCl > 10-29 mL/min) *Enoxaparin/Lovenox 30 mg SQ BID (WT < 150 kg, CrCl > 30 mL/min) AND/OR *Sequential Compression Device (SCD) 5 or more Highest Order ONE of the following medications: *Heparin 5000 units SQ TID (Preferred with Epidurals) *Enoxaparin/Lovenox 40 mg SQ daily (WT < 150 kg, CrCl > 30 mL/min) *Enoxaparin/Lovenox 30 mg SQ daily (WT < 150 kg, CrCl > 10-29 mL/min) *Enoxaparin/Lovenox 30 mg SQ BID (WT < 150 kg, CrCl > 30 mL/min) AND *Sequential Compression Device (SCD) Assessment and Plan Assessment and Plan 1. Bleeding from AV fistula: Status post surgical intervention. Appreciate vascular surgery recommendations. Discussed with Dr. Romero. Monitor H&H. 2. Anemia secondary to acute blood loss: Status post transfusion of 2 units PRBCs. Monitor H&H. 3. End-stage renal disease on hemodialysis: Nephrology consult. 4. Diabetes mellitus: Monitor Accu-Cheks and cover with sliding scale insulin. 5. Hyperlipidemia: Continue statin. 6. Hypertension: Continue amlodipine, labetalol. 7. DVT prophylaxis: DOLLY Avila. Avoid chemical prophylaxis secondary to bleeding, anemia. Sylvain Franks MD Aug 15, 2017 13:59
[2017-08-15 14:09] LABS: HEMATOCRIT 29.1 % (39.0-51.0); HEMOGLOBIN 9.5 GM/DL (13.0-17.0); MEAN CELL VOLUME 79.8 FL (80.0-100.0); MEAN CORPUSCULAR HGB CONC 32.6 % (32.0-36.0); MEAN PLATELET VOLUME 6.4 FL (7.0-11.0); PLATELET COUNT 197 TH/MM3 (150-450); RED BLOOD COUNT 3.65 MIL/MM3 (4.50-5.90); RED CELL DISTRIBUTION WIDTH 18.7 % (11.6-17.2); WHITE BLOOD COUNT 6.8 TH/MM3 (4.0-11.0)
[2017-08-15] MEDS: LABETALOL HCL 200 MG TAB PO SCH ×2 (17:45→21:02)
[2017-08-15] MEDS: SEVELAMER CARBONATE 800 MG TAB PO SCH (17:47)
[2017-08-15] MEDS: GABAPENTIN 100 MG CAP PO SCH (17:47)
[2017-08-15 20:00] VITALS: BP 133/60; PULSE 61; RESP 18; TEMP 96.7; O2SAT 100
[2017-08-15] MEDS: DOCUSATE SODIUM 50 MG/SENNA 8.6 MG TAB PO SCH (21:00)
[2017-08-15] MEDS ORDERED: ATORVASTATIN 40 MG TAB PO SCH (21:00)
[2017-08-15] MEDS: SODIUM CHLORIDE 0.9% FLUSH 10 ML FLUSH IV FLUSH SCH (21:02)
[2017-08-16] VITALS: BP 132/61; PULSE 55; RESP 18; TEMP 96.4; O2SAT 100
[2017-08-16 04:00] VITALS: BP 117/56; PULSE 60; RESP 18; TEMP 96.5; O2SAT 99
[2017-08-16] MEDS: LABETALOL HCL 200 MG TAB PO SCH ×2 (04:34→13:08)
[2017-08-16 07:09] LABS: AUTOMATED NEUTROPHIL # 6.3 TH/MM3 (1.8-7.7); BASOPHIL % 0.6 % (0.0-2.0); EOSINOPHIL # 0.3 TH/MM3 (0-0.4); HEMOGLOBIN 9.4 GM/DL (13.0-17.0); LYMPH % 12.2 % (9.0-44.0); MEAN CELL VOLUME 79.9 FL (80.0-100.0); MEAN CORPUSCULAR HGB CONC 32.6 % (32.0-36.0); MEAN PLATELET VOLUME 6.1 FL (7.0-11.0); MONO % 6.4 % (0.0-8.0); MONOCYTE # 0.5 TH/MM3 (0-0.9); NEUT % 76.8 % (16.0-70.0); PLATELET COUNT 183 TH/MM3 (150-450); RED BLOOD COUNT 3.63 MIL/MM3 (4.50-5.90); RED CELL DISTRIBUTION WIDTH 18.9 % (11.6-17.2); WHITE BLOOD COUNT 8.3 TH/MM3 (4.0-11.0)
[2017-08-16 07:46] VITALS: BP 122/48; PULSE 57; RESP 20; TEMP 97.7; O2SAT 100
[2017-08-16] MEDS: GABAPENTIN 100 MG CAP PO SCH (08:09)
[2017-08-16] MEDS: SEVELAMER CARBONATE 800 MG TAB PO SCH ×3 (08:09→17:00)
[2017-08-16] MEDS: DOCUSATE SODIUM 50 MG/SENNA 8.6 MG TAB PO SCH (08:09)
[2017-08-16] MEDS: SODIUM CHLORIDE 0.9% FLUSH 10 ML FLUSH IV FLUSH SCH (08:10)
[2017-08-16] MEDS ORDERED: FUROSEMIDE 40 MG TAB PO SCH (09:00)
[2017-08-16] MEDS ORDERED: FERROUS SULFATE 325 MG (65 MG ELEMENTAL IRON) TAB PO SCH (09:00)
[2017-08-16] MEDS ORDERED: ALLOPURINOL 100 MG TAB PO SCH (09:00)
[2017-08-16 10:10] VITALS: O2SAT 99
[2017-08-16] MEDS ORDERED: SODIUM CHLOR 0.9% 1000 ML INJ 1,000 ML OTHER PRN ×2 (10:12)
[2017-08-16] MEDS ORDERED: SODIUM CHLOR 0.9% 1000 ML INJ 1,000 ML IV PRN (10:12)
[2017-08-16] MEDS ORDERED: NITROGLYCERIN 0.4 MG SL 25 TABS/BTL SL PRN (10:15)
[2017-08-16] MEDS ORDERED: MANNITOL 12.5 GM/50 ML VIAL IV PRN (10:15)
[2017-08-16] MEDS ORDERED: ALBUMIN 25% INJ 100 ML IV PRN (10:15)
[2017-08-16] MEDS ORDERED: EPOETIN ALFA 10,000 UNITS/ML VIAL IV PUSH PRN (10:15)
[2017-08-16] MEDS ORDERED: SODIUM CHLORIDE 0.9% FLUSH 10 ML FLUSH IV FLUSH PRN (10:15)
[2017-08-16] MEDS ORDERED: ONDANSETRON HCL 4 MG/2 ML VIAL IV PUSH PRN (10:15)
[2017-08-16] MEDS ORDERED: diphenhydrAMINE HCL 25 MG CAP PO PRN (10:15)
[2017-08-16] MEDS ORDERED: cloNIDine HCL 0.1 MG TAB PO PRN (10:15)
[2017-08-16] MEDS ORDERED: HEPARIN SODIUM - IV 10,000 UNITS/10 ML VIAL PRN (10:15)
[2017-08-16] MEDS ORDERED: GENTAMICIN SULFATE 20 MG/2 ML VIAL OTHER PRN (10:15)
[2017-08-16] MEDS ORDERED: ACETAMINOPHEN 325 MG TAB PO PRN (10:15)
[2017-08-16] MEDS ORDERED: GELATIN 12 MM/7 MM FOAM TOP PRN (10:15)
--- NOTE | 2017-08-16 10:20 | PD.CONS ---
HPI Consult Requested By Reason for Consult To provide dialysis services in house. Primary Care Physician No Primary Care Physician History of Present Illness Patient with a history of end-stage renal disease on maintenance hemodialysis Wednesday and Wednesday who recently had spontaneous hemorrhage from his AV fistula with subsequent surgical revision now presents again with hemorrhage from his AV dialysis shunt. Status post surgical intervention again. Operative note not currently available to me. Patient requires dialysis today per his outpatient schedule. Presently the patient appears to be stable with no verbal complaints. Past Family Social History Allergies: Coded Allergies: No Known Allergies (Verified Allergy, Unknown, 08/02/17) Past Medical History End-stage renal disease Hypertension Diabetes mellitus Coronary disease Carcinoma of the prostate CHF Peripheral vascular disease. Gastroesophageal reflux disease. Previous intracranial hemorrhage. Past Surgical History Placement and AV dialysis fistula August 2013. Reported Medications Reported Meds & Active Scripts Active Labetalol (Labetalol HCl) 200 Mg Tab 200 Mg PO Q8H Reported Gabapentin 100 Mg Cap 100 Mg PO TID Furosemide 40 Mg Tab 40 Mg PO DAILY Docusate Sodium 100 Mg Tab 200 Mg PO DAILY Atorvastatin (Atorvastatin Calcium) 40 Mg Tab 40 Mg PO HS Amlodipine (Amlodipine Besylate) 10 Mg Tab 10 Mg PO DAILY Tramadol (Tramadol HCl) 50 Mg Tab 50 Mg PO TID Mapap (Acetaminophen) 500 Mg Cap 500 Mg PO TID Fluticasone Nasal [place] 50 Mcg/Act Naspr 50 Mcg EACH NARE DAILY 50 mcg/spray Proventil Hfa 6.7 GM Inh (Albuterol Sulfate) 90 Mcg/Act Aer 1 Puff INH QID PRN Renvela (Sevelamer Carbonate) 800 Mg Tab 800 Mg PO TIDAC Ferrous Sulfate 325 Mg (65 Mg Iron) Tablet 325 Mg PO DAILY Aspirin 81 (Aspirin) 81 Mg Tabdr 81 Mg PO DAILY Allopurinol 100 Mg Tab 100 Mg PO DAILY Active Ordered Medications Current Medications Lidocaine/ Epinephrine (Xylocaine-Epi 1%-1:100,000 Inj) 30 ml STK-MED ONCE .ROUTE Last administered on 08/15/17at 09:57; Start 08/15/17 at 09:57; Stop 05/22 at 09:58; Status DC Sodium Chloride 250 ml @ 15 mls/hr ONCE ONCE IV ; Start 08/15/17 at 10:15; Stop 08/16/17 at 02:54; Status DC Desmopressin Acetate 26 mcg/ Sodium Chloride 56.5 ml @ 100.5 mls/ hr ONCE ONCE IV ; Start 08/15/17 at 10:30; Stop 08/15/17 at 11:03; Status DC Sodium Chloride (NS Flush) 2 ml UNSCH PRN IV FLUSH FLUSH AFTER USING IV ACCESS ; Start 08/15/17 at 11:00 Sodium Chloride (NS Flush) 2 ml BID IV FLUSH Last administered on 08/16/17at 08: 10; Start 08/15/17 at 21:00 Acetaminophen (Tylenol) 650 mg Q4H PRN PO TEMP > 100.4; Start 08/15/17 at 11:00 Ondansetron HCl (Zofran Inj) 4 mg Q6H PRN IVP NAUSEA OR VOMITING; Start at 11:00 Naloxone HCl (Narcan Inj) 0.4 mg UNSCH PRN IV PUSH SEE LABEL COMMENTS; Start at 11:00 Senna/Docusate Sodium (Sol-Colace) 1 tab BID PO Last administered on at 08:09; Start 08/15/17 at 21:00 Magnesium Hydroxide (Milk Of Magnesia Liq) 30 ml Q12H PRN PO Mild constipation ; Start 08/15/17 at 11:00 Sennosides (Senokot) 17.2 mg Q12H PRN PO Moderate constipation; Start 08/15/17 at 11:00 Bisacodyl (Dulcolax Supp) 10 mg DAILY PRN RECTAL SEVERE CONSITIPATION; Start at 11:00 Lactulose (Lactulose Liq) 30 ml DAILY PRN PO SEVERE CONSITIPATION; Start at 11:00 Heparin Sodium (Porcine) (Heparin Inj) 10,000 units STK-MED ONCE .ROUTE ; Start 08/15/17 at 11:27; Stop 08/15/17 at 11:28; Status DC Heparin Sodium (Porcine) (Heparin Inj) 10,000 units STK-MED ONCE .ROUTE Last administered on 08/15/17at 11:54; Start 08/15/17 at 11:31; Stop 08/15/17 at 11:32 ; Status DC Cefazolin Sodium (Ancef Inj) 2,000 mg STK-MED ONCE .ROUTE Last administered on 08/15/17at 11:53; Start 08/15/17 at 11:31; Stop 08/15/17 at 11:32; Status DC Fentanyl Citrate (fentaNYL INJ) 100 mcg STK-MED ONCE .ROUTE ; Start 08/15/17 at 12:33; Stop 08/15/17 at 12:34; Status DC Miscellaneous Information ALL NURSING DEPARTME... UNSCH PRN .XX SEE LABEL COMMENTS; Start 08/15/17 at 13:00; Stop 08/16/17 at 12:59 Morphine Sulfate (Morphine Inj) 2 mg Q4H PRN IV PUSH PAIN SCALE 3 TO 10; Start 08/15/17 at 13:15 Albuterol Sulfate (Proair Hfa Inh) 1 puff QID PRN INH SOB/WHEEZING; Start 08/15 at 13:30 Allopurinol (Zyloprim) 100 mg DAILY PO Last administered on 08/16/17at 08:10; Start 08/16/17 at 09:00 Amlodipine Besylate (Norvasc) 10 mg DAILY PO Last administered on 08/16/17at 08: 09; Start 08/16/17 at 09:00 Atorvastatin Calcium (Lipitor) 40 mg HS PO Last administered on 08/15/17at 21:02 ; Start 08/15/17 at 21:00 Ferrous Sulfate (Ferrous Sulfate) 325 mg DAILY PO Last administered on at 08:09; Start 08/16/17 at 09:00 Furosemide (Lasix) 40 mg DAILY PO Last administered on 08/16/17at 08:10; Start 08/16/17 at 09:00 Gabapentin (Neurontin) 100 mg DAILY PO Last administered on 08/16/17at 08:09; Start 08/15/17 at 18:00 Labetalol HCl (Trandate) 200 mg Q8H PO Last administered on 08/16/17at 04:34; Start 08/15/17 at 13:30 Sevelamer Carbonate (Renvela) 800 mg TIDAC PO Last administered on 08/16/17at 08 :09; Start 08/15/17 at 17:00 Sodium Chloride 1,000 ml @ 0 mls/hr Q0M PRN OTHER For Prime & Rinse Back; Start 08/16/17 at 10:12; Status UNV Sodium Chloride 1,000 ml @ 200 mls/hr Q5H PRN IV WITH DIALYSIS; Start 08/16/17 at 10:12; Status UNV Sodium Chloride 1,000 ml @ 0 mls/hr Q0M PRN OTHER WITH DIALYSIS; Start at 10:12; Status UNV Mannitol (Mannitol Inj) 12.5 gm UNSCH PRN IV WITH DIALYSIS; Start 08/16/17 at 10:15; Status UNV Albumin Human 100 ml @ 60 mls/hr UNSCH PRN IV WITH DIALYSIS; Start 08/16/17 at 10:15; Status UNV Sodium Chloride (NS Flush) 5 ml UNSCH PRN IV FLUSH WITH DIALYSIS; Start at 10:15; Status UNV Heparin Sodium (Porcine) (Heparin Inj) UNSCH PRN .XX WITH DIALYSIS; Start 06/21 at 10:15; Status UNV Gentamicin Sulfate (Gentamicin Inj) 20 mg UNSCH PRN OTHER WITH DIALYSIS; Start 08/16/17 at 10:15; Status UNV Ondansetron HCl (Zofran Inj) 4 mg UNSCH PRN IV PUSH WITH DIALYSIS; Start at 10:15; Status UNV Acetaminophen (Tylenol) 650 mg UNSCH PRN PO for headach, pain, temp > 101F; Start 08/16/17 at 10:15; Status UNV Diphenhydramine HCl (Benadryl) 25 mg UNSCH PRN PO for hives/itching/anaphylaxis ; Start 08/16/17 at 10:15; Status UNV Nitroglycerin (Nitrostat Sl) 0.4 mg UNSCH PRN SL CHEST PAIN; Start 08/16/17 at 10:15; Status UNV Clonidine (Catapres) 0.1 mg UNSCH PRN PO for BP > 180/100 X 2 readings; Start 08/16/17 at 10:15; Status UNV Epoetin Buddy (Epogen Inj) 5,000 units UNSCH PRN IV PUSH WITH DIALYSIS; Start at 10:15; Status UNV Gelatin (Gelfoam 12 Mm/7 Mm Top) 1 foam UNSCH PRN TOP SEE LABEL COMMENTS; Start 08/16/17 at 10:15; Status UNV Social History Patient resides in a intermediate. No history of illicit drug use. Physical Exam Vital Signs Vital Signs Date Time Temp Pulse Resp B/P (MAP) Pulse Ox O2 Delivery O2 Flow Rate FiO2 08/16/17 10:10 99 Nasal Cannula 2.00 08/16/17 07:46 97.7 57 20 122/48 (72) 100 08/16/17 04:00 96.5 60 18 117/56 (76) 99 08/16/17 00:00 96.4 55 18 132/61 (84) 100 08/15/17 20:00 96.7 61 18 133/60 (84) 100 08/15/17 17:20 98.5 63 15 148/67 (94) 99 Nasal Cannula 2 08/15/17 17:00 60 15 144/63 (90) 98 Nasal Cannula 2 08/15/17 16:00 58 15 138/60 (86) 98 Nasal Cannula 2 08/15/17 15:00 54 15 130/56 (80) 98 Nasal Cannula 2 08/15/17 14:30 97.8 53 15 123/58 (79) 98 Nasal Cannula 2 08/15/17 14:30 97.8 08/15/17 14:00 97.5 52 15 120/58 (78) 98 Nasal Cannula 2 08/15/17 13:45 97.2 52 15 124/59 (80) 97 Nasal Cannula 2 08/15/17 13:30 51 15 122/58 (79) 97 Nasal Cannula 2 08/15/17 13:15 96.7 50 14 117/56 (76) 96 Nasal Cannula 2 08/15/17 13:00 52 14 114/55 (74) 96 Nasal Cannula 2 08/15/17 12:45 96.5 53 15 120/55 (76) 100 Nasal Cannula 3 08/15/17 12:30 55 15 124/59 (80) 100 Simple Mask 6 08/15/17 12:22 96.4 59 14 132/60 (84) 100 Simple Mask 7 08/15/17 12:22 96.4 08/15/17 11:25 08/15/17 10:49 100 Nasal Cannula 2.00 08/15/17 10:48 97.8 63 14 134/61 100 08/15/17 10:31 98.3 68 13 113/55 Physical Exam GENERAL: Patient alert, orientated. SKIN: Warm and dry. HEAD: Normocephalic. EYES: No scleral icterus. No injection or drainage. NECK: Supple, trachea midline. No JVD or lymphadenopathy. CARDIOVASCULAR: Regular rate and rhythm without murmurs, gallops, or rubs. RESPIRATORY: Breath sounds equal bilaterally. No accessory muscle use. GASTROINTESTINAL: Abdomen soft, non-tender, nondistended. MUSCULOSKELETAL: No cyanosis, or edema. Dressings overlying his revised AV dialysis shunt or not disturbed. PermCath in place and appears to be intact. BACK: Nontender without obvious deformity. No CVA tenderness. Laboratory Laboratory Tests Test 08/15/17 14:00 08/16/17 06:44 White Blood Count 6.8 8.3 Red Blood Count 3.65 3.63 Hemoglobin 9.5 9.4 Hematocrit 29.1 29.0 Mean Corpuscular Volume 79.8 79.9 Mean Corpuscular Hemoglobin 26.0 26.0 Mean Corpuscular Hemoglobin Concent 32.6 32.6 Red Cell Distribution Width 18.7 18.9 Platelet Count 197 183 Mean Platelet Volume 6.4 6.1 Neutrophils (%) (Auto) 76.8 Lymphocytes (%) (Auto) 12.2 Monocytes (%) (Auto) 6.4 Eosinophils (%) (Auto) 4.0 Basophils (%) (Auto) 0.6 Neutrophils # (Auto) 6.3 Lymphocytes # (Auto) 1.0 Monocytes # (Auto) 0.5 Eosinophils # (Auto) 0.3 Basophils # (Auto) 0.0 CBC Comment DIFF FINAL Differential Comment Result Diagram: 08/16/17 0644 08/15/17 1020 Assessment and Plan Problem List: (1) End-stage renal disease on hemodialysis ICD Codes: N18.6 - End stage renal disease; Z99.2 - Dependence on renal dialysis Status: Chronic Plan: Dialysis orders entered in the dialysis service was notified regarding need for hemodialysis today. Medication should be adjusted for his end-stage renal disease when indicated. Avoid gadolinium. (2) Hemorrhage of arteriovenous fistula ICD Codes: T82.838A - Hemorrhage due to vascular prosthetic devices, implants and grafts, initial encounter Status: Acute Plan: Status post surgical revision 2. (3) HTN (hypertension) ICD Codes: I10 - Essential (primary) hypertension Plan: Continue current hypertensive regimen with monitoring of pressure. 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 (5) Anemia of renal disease ICD Codes: D63.1 - Anemia in chronic kidney disease Status: Chronic Plan: Epogen as ordered. Trupti Arciniega MD Aug 16, 2017 10:20
--- NOTE | 2017-08-16 10:22 | PD.CAR.PN ---
CVT Progress Note Subjective/Hospital Course: Patient with recurrent bleeding from his eroded AV fistula of the right arm Due to recurrent nature of this bleeding and advanced destruction of the tissues the fistula had to be sacrificed and ligated Patient will need a new fistula but he is a very poor candidate for any surgical procedure and temporary access may be all he will have in the end Will follow Objective: Vital Signs Date Time Temp Pulse Resp B/P (MAP) Pulse Ox O2 Delivery O2 Flow Rate FiO2 08/16/17 10:10 99 Nasal Cannula 2.00 08/16/17 07:46 97.7 57 20 122/48 (72) 100 08/16/17 04:00 96.5 60 18 117/56 (76) 99 08/16/17 00:00 96.4 55 18 132/61 (84) 100 08/15/17 20:00 96.7 61 18 133/60 (84) 100 08/15/17 17:20 98.5 63 15 148/67 (94) 99 Nasal Cannula 2 08/15/17 17:00 60 15 144/63 (90) 98 Nasal Cannula 2 08/15/17 16:00 58 15 138/60 (86) 98 Nasal Cannula 2 08/15/17 15:00 54 15 130/56 (80) 98 Nasal Cannula 2 08/15/17 14:30 97.8 53 15 123/58 (79) 98 Nasal Cannula 2 08/15/17 14:30 97.8 08/15/17 14:00 97.5 52 15 120/58 (78) 98 Nasal Cannula 2 08/15/17 13:45 97.2 52 15 124/59 (80) 97 Nasal Cannula 2 08/15/17 13:30 51 15 122/58 (79) 97 Nasal Cannula 2 08/15/17 13:15 96.7 50 14 117/56 (76) 96 Nasal Cannula 2 08/15/17 13:00 52 14 114/55 (74) 96 Nasal Cannula 2 08/15/17 12:45 96.5 53 15 120/55 (76) 100 Nasal Cannula 3 08/15/17 12:30 55 15 124/59 (80) 100 Simple Mask 6 08/15/17 12:22 96.4 59 14 132/60 (84) 100 Simple Mask 7 08/15/17 12:22 96.4 08/15/17 11:25 08/15/17 10:49 100 Nasal Cannula 2.00 08/15/17 10:48 97.8 63 14 134/61 100 08/15/17 10:31 98.3 68 13 113/55 Labs: Laboratory Tests Test 08/16/17 06:44 White Blood Count 8.3 TH/MM3 (4.0-11.0) Red Blood Count 3.63 MIL/MM3 (4.50-5.90) Hemoglobin 9.4 GM/DL (13.0-17.0) Hematocrit 29.0 % (39.0-51.0) Mean Corpuscular Volume 79.9 FL (80.0-100.0) Mean Corpuscular Hemoglobin 26.0 PG (27.0-34.0) Mean Corpuscular Hemoglobin Concent 32.6 % (32.0-36.0) Red Cell Distribution Width 18.9 % (11.6-17.2) Platelet Count 183 TH/MM3 (150-450) Mean Platelet Volume 6.1 FL (7.0-11.0) Neutrophils (%) (Auto) 76.8 % (16.0-70.0) Lymphocytes (%) (Auto) 12.2 % (9.0-44.0) Monocytes (%) (Auto) 6.4 % (0.0-8.0) Eosinophils (%) (Auto) 4.0 % (0.0-4.0) Basophils (%) (Auto) 0.6 % (0.0-2.0) Neutrophils # (Auto) 6.3 TH/MM3 (1.8-7.7) Lymphocytes # (Auto) 1.0 TH/MM3 (1.0-4.8) Monocytes # (Auto) 0.5 TH/MM3 (0-0.9) Eosinophils # (Auto) 0.3 TH/MM3 (0-0.4) Basophils # (Auto) 0.0 TH/MM3 (0-0.2) CBC Comment DIFF FINAL Differential Comment Result Diagram: 08/16/17 0644 08/15/17 1020 Devaughn Romero MD Aug 16, 2017 10:22
--- NOTE | 2017-08-16 10:46 | HHI.PR ---
Subjective Remarks Follow up acute blood loss anemia, ESRD. Patient has no complaints at this time. Denies pain, dyspnea, nausea, vomiting. Objective Vitals Vital Signs Date Time Temp Pulse Resp B/P (MAP) Pulse Ox O2 Delivery O2 Flow Rate FiO2 08/16/17 10:10 99 Nasal Cannula 2.00 08/16/17 07:46 97.7 57 20 122/48 (72) 100 08/16/17 04:00 96.5 60 18 117/56 (76) 99 08/16/17 00:00 96.4 55 18 132/61 (84) 100 08/15/17 20:00 96.7 61 18 133/60 (84) 100 08/15/17 17:20 98.5 63 15 148/67 (94) 99 Nasal Cannula 2 08/15/17 17:00 60 15 144/63 (90) 98 Nasal Cannula 2 08/15/17 16:00 58 15 138/60 (86) 98 Nasal Cannula 2 08/15/17 15:00 54 15 130/56 (80) 98 Nasal Cannula 2 08/15/17 14:30 97.8 53 15 123/58 (79) 98 Nasal Cannula 2 08/15/17 14:30 97.8 08/15/17 14:00 97.5 52 15 120/58 (78) 98 Nasal Cannula 2 08/15/17 13:45 97.2 52 15 124/59 (80) 97 Nasal Cannula 2 08/15/17 13:30 51 15 122/58 (79) 97 Nasal Cannula 2 08/15/17 13:15 96.7 50 14 117/56 (76) 96 Nasal Cannula 2 08/15/17 13:00 52 14 114/55 (74) 96 Nasal Cannula 2 08/15/17 12:45 96.5 53 15 120/55 (76) 100 Nasal Cannula 3 08/15/17 12:30 55 15 124/59 (80) 100 Simple Mask 6 08/15/17 12:22 96.4 59 14 132/60 (84) 100 Simple Mask 7 08/15/17 12:22 96.4 08/15/17 11:25 08/15/17 10:49 100 Nasal Cannula 2.00 08/15/17 10:48 97.8 63 14 134/61 100 I/O 2/11/18 208/15/17 08/16/17 08/16/17 08/16/17 07:00 15:00 23:00 07:00 15:00 23:00 Intake Total 850 ml 0 ml 120 ml Output Total 5 ml 0 ml Balance 845 ml 0 ml 120 ml Intake Oral 120 ml IV Total 400 ml 0 ml Packed Cells 400 ml Blood Product IV Normal Saline Flush 50 ml Output Urine Total 0 ml Estimated Blood Loss 5 ml # Voids 0 # Bowel Movements 0 Result Diagram: 08/16/17 0644 08/15/17 1020 Objective Remarks General: Elderly male in no acute distress. Sitting up in a chair. Heart: Regular rate and rhythm. No murmur. Lungs: Clear to auscultation bilaterally. No wheezes, rales, or rhonchi. Breathing is nonlabored. Abdomen: Soft, nontender, nondistended. Extremities: No lower extremity edema. Right upper extremity bandaged. Psych: Alert and oriented. 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, on dialysis ICD Code: E11.22 - Type 2 diabetes mellitus with diabetic chronic kidney disease; I12.0 - Hypertensive chronic kidney disease with stage 5 chronic kidney disease or end stage renal disease; N18.6 - End stage renal disease; Z99.2 - Dependence on renal dialysis Status: Chronic (3) End-stage renal disease on hemodialysis ICD Code: N18.6 - End stage renal disease; Z99.2 - Dependence on renal dialysis Status: Chronic (4) HLD (hyperlipidemia) ICD Code: E78.5 - Hyperlipidemia, unspecified (5) Diabetes ICD Code: E11.9 - Type 2 diabetes mellitus without complications Assessment and Plan 1. Bleeding from AV fistula: Status post surgical intervention. Appreciate vascular surgery recommendations. H&H remained stable. 2. Anemia secondary to acute blood loss: Status post transfusion of 2 units PRBCs. Hemoglobin improved following transfusion and remained stable overnight. 3. End-stage renal disease on hemodialysis: Nephrology consult appreciated. Hemodialysis today. 4. Diabetes mellitus: Monitor Accu-Cheks and cover with sliding scale insulin. 5. Hyperlipidemia: Continue statin. 6. Hypertension: Continue amlodipine, labetalol. Blood pressure is well controlled. 7. DVT prophylaxis: DOLLY Avila. Avoid chemical prophylaxis secondary to bleeding, anemia. Discharge Planning Possible discharge home following dialysis today, pending clearance by vascular surgery, nephrology. Sylvain Franks MD Aug 16, 2017 10:46
--- NOTE | 2017-08-16 10:48 | HHI.DCPOC ---
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, on dialysis (2) End-stage renal disease on hemodialysis (3) Anemia of renal disease (4) Diabetes (5) Hemorrhage of arteriovenous fistula Goals to Promote Your Health * To prevent worsening of your condition and complications * To maintain your health at the optimal level Directions to Meet Your Goals Take your medications as prescribed Follow your dietary instruction Follow activity as directed Keep your appointments as scheduled Take your immunizations and boosters as scheduled If your symptoms worsen call your PCP, if no PCP go to Urgent Care Center or Emergency Room Smoking is Dangerous to Your Health. Avoid second hand smoke Call the 24-hour hour crisis hotline for domestic abuse at Sylvain Franks MD Aug 16, 2017 10:48
--- NOTE | 2017-08-16 11:12 | EKG ---
Date Performed: 08/15/2017 Time Performed: 10:20:21 PTAGE: 82 years EKG: Sinus rhythm INDETERMINATE AXIS PATTERN CONSISTENT WITH PULMONARY DISEASE MODERATE INTRAVENTRICULAR CONDUCTION DE LAY ABNORMAL ECG Since the prior tracing, there has been no significant change PREVIOUS TRACING : 08/02/2017 10.06 DOCTOR: Lit Loomis Interpretating Date/Time 08/16/2017 11:05:48
[2017-08-16 11:59] VITALS: BP 108/50; PULSE 56; RESP 18; TEMP 97.9; O2SAT 93
--- NOTE | 2017-08-16 13:51 | MP ---
cc: DEVAUGHN SAMPSON MD DATE OF SURGERY: 08/15/2017 PREOPERATIVE DIAGNOSIS Brisk bleeding from AV fistula tear. POSTOPERATIVE DIAGNOSIS Brisk bleeding from AV fistula tear. OPERATIVE PROCEDURE Ligation of the AV fistula and sacrificing of the fistula. SURGEON Dr. Sampson. ANESTHESIA General. ESTIMATED BLOOD LOSS 20 ccs. INDICATIONS FOR PROCEDURE This unfortunate 82-year-old gentleman presents to the emergency room with brisk bleeding from his AV fistula. This was controlled in the ER and I was consulted emergently. It should be noted that the patient had previous exploration of fistula and repair of the bleeding about 3 weeks ago and now comes back with the same. At this point there is not many options left. PROCEDURE The patient is prepped and draped in the usual fashion. 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 The stitches from previous surgery are removed and easily the efferant, afferent vessels are found and a vessel loop placed around them. This is cinched down and the fistula is observed. The tissue is completely disintegrated about inch length distance and this clearly cannot be saved at this time. The area is irrigated with copious amounts of saline, a few stitches were placed to repair the skin after debriding it and then the proximal and distal end of the fistula ligated with 0-Silk, area irrigated with saline. At the end of the procedure the patient has excellent distal pulses in the ulnar and radial arteries. Incisions were closed with 3-0 Prolene. The patient tolerated the procedure well. Devaughn BOWMAN/LAMONT /12:50 PM /1:41 PM
[2017-08-16 15:56] VITALS: BP 114/58; PULSE 79; RESP 16; TEMP 97.2; O2SAT 95
== END 2017-08-16 20:13 | disposition home or self-care (01) | DRG 252 ==
LOC: NEPE 09:49 → NEDA 10:57 → N07A 17:35
PROVIDERS: ADMIT Hospitalist; ATTEND Hospitalist
PROC: 30233N1 Transfusion of Nonautologous Red Blood Cells into Peripheral Vein, Percutaneous Approach (ICD-10-PCS; 2017-08-15)
PROC: 03LY0ZZ Occlusion of Upper Artery, Open Approach (ICD-10-PCS; principal; 2017-08-15 11:10)
DX: T82.838A Hemorrhage due to vascular prosthetic devices, implants and grafts, initial encounter (principal); I13.2 Hypertensive heart and chronic kidney disease with heart failure and with stage 5 chronic kidney disease, or end stage renal disease; N18.6 End stage renal disease; I50.9 Heart failure, unspecified; E11.22 Type 2 diabetes mellitus with diabetic chronic kidney disease; E11.51 Type 2 diabetes mellitus with diabetic peripheral angiopathy without gangrene; D62 Acute posthemorrhagic anemia; Y84.1 Kidney dialysis as the cause of abnormal reaction of the patient, or of later complication, without mention of misadventure at the time of the procedure; Z99.2 Dependence on renal dialysis; Z79.82 Long term (current) use of aspirin; E78.5 Hyperlipidemia, unspecified; D63.1 Anemia in chronic kidney disease; K21.9 Gastro-esophageal reflux disease without esophagitis; J44.9 Chronic obstructive pulmonary disease, unspecified; Z86.718 Personal history of other venous thrombosis and embolism; Z86.73 Personal history of transient ischemic attack (TIA), and cerebral infarction without residual deficits; Z85.46 Personal history of malignant neoplasm of prostate
CPT/HCPCS: 12001; 36430; 80053; 82948; 85025; 85027; 85610; 85730; 86850; 86900; 86901; 86920; 90935; 93005; 96374; 96375; J0690; J1580; J1644; J2370; J2405; J3010; J7040; P9016

== ENCOUNTER 2017-09-27 21:53 | Observation (INO) | payer MEDICARE, OTHER ==
[~2017-09-27] VITALS: Ht 170.2 cm; Wt 77.2 kg
[~2017-09-27 21:53] MED LIST changes: -NEPHTAB3 PO; -OXYGENTANK NAS.CANULA; -TRIAMCINOLONE TOPICAL
[2017-09-27 21:59] VITALS: BP 144/66; PULSE 76; RESP 16; TEMP 98.4; O2SAT 96
--- NOTE | 2017-09-27 22:34 | PD ---
HPI Chief Complaint: Altered Mental Status Time Seen by Provider: 21:59 Travel History International Travel<30 days: No Contact w/Intl Traveler<30days: No Traveled to known affect area: No History of Present Illness HPI The patient is an 82 year old male who presents to the [facility] emergency department with a history of altered mental status that is intermittently been present throughout the day today. The patient is currently in a [place] [facility] facility. The patient was sent to [facility] reportedly earlier today related to the symptoms. The patient is unsure what type of workup was done. The patient was sent back to the [place] [facility] facility and then was noted to be confused again saying his name was Deshawn. The patient's blood sugar prior to arrival was reportedly 163. The patient has a past medical history of chronic renal failure on dialysis on Wednesday, , and Wednesday. He reports that he last received his dialysis on Wednesday. He denies having any known fevers or chills. He does arrive awake and alert at this time with orientation to person and place, however not time or situation. Otherwise on review of systems, he denies having any recent cough or congestion, neck pain, chest pain, shortness of breath, abdominal pain, vomiting, diarrhea, one-sided weakness, slurred speech, facial droop, difficulty with word finding ability, or vision changes. [facility] Past Medical History Narrative Medical The patient's past medical history is significant for chronic renal failure on hemodialysis, history of peripheral vascular disease, diabetes mellitus, hyperlipidemia, hypertension, acid reflux, history of DVT, history of prior cerebrovascular accident, COPD, congestive heart failure. Hx Anticoagulant Therapy: Yes (aspirin 81MG ) Anemia: Yes Blood Disorders: Yes (hemorrhage of RUE fistula ) Anxiety: Yes Depression: Yes Cancer: Yes (prostate CA) Cardiovascular Problems: Yes (PVD; Anemia; HTN) High Cholesterol: Yes Dementia: Yes Diabetes: Yes Patient Takes Glucophage: No Dialysis: Yes (via L vascath T/R/Sat) Diminished Hearing: No Endocrine: No Gastrointestinal Disorders: Yes (HX OF GERD, CONSTIPATION) GERD: Yes Gout: Yes Genitourinary: Yes (ESRD) Hiatal Hernia: Yes Hypertension: Yes Immune Disorder: No Medical other: Yes (HYPERLIPIDEMIA) Musculoskeletal: No Neurologic: No Psychiatric: No Reproductive: No Respiratory: No Renal Failure: Yes Past Surgical History Narrative Surgical The patient's past surgical history is significant for an AV fistula placement and again in August 2017. The patient is now receiving his dialysis through Vas-Cath placement in the left side of the chest. Abdominal Surgery: Yes (has a scar along the R side of abdomen) Arteriovenous Shunt: Yes (RUE-no bruitt or thrill noted; L SubC VASCATH) Tonsillectomy: Yes Other Surgery: Yes (PROSTATE CA WITH SEEDS IMPLANT, r upper arm fistula) Social History Alcohol Use: No Tobacco Use: No Substance Use: No Allergies-Medications (Allergen,Severity, Reaction): Coded Allergies: No Known Allergies (Verified Allergy, Unknown, 08/02/17) Reported Meds & Prescriptions Reported Meds & Active Scripts Active Labetalol (Labetalol HCl) 200 Mg Tab 200 Mg PO Q8H Reported Vitamin D2 (Ergocalciferol) 2,000 Unit Tab 50,000 Units PO WEDNESDAY Lactulose 10 Gram/15 Ml (15 Ml) Solution 15 Ml PO BID Nephro-Micah (B-Complex W/ C & Folic Acid) 1 Tab 1 Tab PO DAILY Tramadol (Tramadol HCl) 50 Mg Tab 50 Mg PO BID PRN Albuterol Neb (Albuterol Sulfate) 0.63 Mg/3 Ml Neb 0.63 Mg NEB QID NEB PRN Gabapentin 100 Mg Cap 100 Mg PO TID Furosemide 40 Mg Tab 40 Mg PO DAILY Docusate Sodium 100 Mg Tab 200 Mg PO DAILY Atorvastatin (Atorvastatin Calcium) 40 Mg Tab 40 Mg PO HS Amlodipine (Amlodipine Besylate) 10 Mg Tab 10 Mg PO DAILY Mapap (Acetaminophen) 500 Mg Cap 500 Mg PO TID Fluticasone Nasal [place] 50 Mcg/Act Naspr 50 Mcg EACH NARE DAILY 50 mcg/spray Proventil Hfa 6.7 GM Inh (Albuterol Sulfate) 90 Mcg/Act Aer 1 Puff INH QID PRN Renvela (Sevelamer Carbonate) 800 Mg Tab 800 Mg PO TIDAC Ferrous Sulfate 325 Mg (65 Mg Iron) Tablet 325 Mg PO DAILY Aspirin 81 (Aspirin) 81 Mg Tabdr 81 Mg PO DAILY Allopurinol 100 Mg Tab 100 Mg PO DAILY Review of Systems Except as stated in HPI: all other systems reviewed are Neg General / Constitutional: No: Fever Eyes: No: Visual changes HENT: No: Headaches Cardiovascular: No: Chest Pain or Discomfort Respiratory: No: Shortness of Breath Gastrointestinal: No: Abdominal Pain Genitourinary: No: Dysuria Musculoskeletal: No: Pain Skin: No Rash Neurologic: Positive: Change in Mentation, No: Weakness, Focal Abnormalities, Slurred Speech, Sensory Disturbance Psychiatric: No: Depression Endocrine: No: Polydipsia Hematologic/Lymphatic: No: Easy Bruising Physical Exam Narrative General: The patient is a well-developed well-nourished male in no acute distress. Head and Neck exam: Head is normocephalic atraumatic. Eyes: EOMI, pupils are equal round and reactive to light. Nose: Midline septum with pink mucous membranes Mouth: Dentition unremarkable. Moist mucus membranes. Posterior oropharynx is not erythematous. No tonsillar hypertrophy. Uvula midline. Airway patent. Neck: No palpable lymphadenopathy. No nuchal rigidity. No thyromegaly. Cardiovascular: Regular rate and rhythm with a diastolic murmur audible that is 1/6. No gallops or rubs. No pulse deficit to the extremities on simultaneous auscultation and palpation of his radial artery. Lungs: Clear to auscultation bilaterally. No wheezes, rhonchi, or rales. Abdomen: Soft, without tenderness to palpation in all 4 quadrants of the abdomen. No guarding, rebound, or rigidity. Normal bowel sounds are audible. No tenderness on palpation of McBurney's point. Negative Greco sign. Extremities: No clubbing or cyanosis. The patient has trace pedal edema bilateral lower extremities. No calf tenderness on palpation. 2+ pulses in all 4 extremities. Back: No costovertebral angle tenderness to palpation. Neurologic Exam: Cranial nerves 2-12 were intact on exam. Strength is 5/5 in all 4 extremities. No sensory deficits noted. The patient is oriented to person, place, however not time or situation. The patient is [place] and has an accent related to this. Patient has no aphasia noted. He is able to name various objects in the room. Skin Exam: No rash noted. Intact skin that is warm and dry. Data Data Last Documented VS Vital Signs Date Time Temp Pulse Resp B/P (MAP) Pulse Ox O2 Delivery O2 Flow Rate FiO2 09/28/17 01:00 76 14 142/63 (89) 95 Room Air 09/27/17 21:59 98.4 Orders Orders Electrocardiogram (09/27/17 22:27) Complete Blood Count With Diff (09/27/17 22:27) Basic Metabolic Panel (Bmp) (09/27/17 22:27) Prothrombin Time / Inr (Pt) (09/27/17:) Act Partial Throm Time (Ptt) (09/27/17:) Lipase (09/27/17:) Magnesium (Mg) (09/27/17:) Ammonia (09/27/17:) Chest, Single Ap (09/27/17:) Ct Brain W/O Iv Contrast(Rout) (09/27/17:) Iv Access Insert/Monitor (09/27/17:) Ecg Monitoring (09/27/17:) Oximetry (09/27/17) Alcohol (Ethanol) (09/27/17:) Lactic Acid Sepsis Protocol (09/28/17 00:00) Blood Culture (09/28/17 00:00) Piperacil-Tazo 3.375 Gm Premix (Zosyn 3. (09/28/17 00:00) Vancomycin Inj (Vancomycin Inj) (09/28/17 00:00) Admit Order (Ed Use Only) (09/28/17 00:39) Consult Nephrology (09/28/17 ) Place In Observation (09/28/17 ) Vital Signs (Adult) Q4H (09/28/17 01:52) Activity Oob With Assistance (09/28/17 01:52) Retort Kiln Burner / Telemetry .CONTINUOUS (09/28/17 01:52) Intake + Output WHIT.QSHIFT (09/28/17 01:52) Sodium Chloride 0.9% Flush (Ns Flush) (09/28/17 02:00) Sodium Chloride 0.9% Flush (Ns Flush) (09/28/17 09:00) Acetaminophen (Tylenol) (09/28/17 02:00) Prochlorperazine Supp (Compazine Supp) (09/28/17 02:00) Comprehensive Metabolic Panel (09/29/17 06:00) Complete Blood Count With Diff (09/29/17 06:00) Heparin Inj (Heparin Inj) (09/28/17 06:00) Naloxone Inj (Narcan Inj) (09/28/17 02:00) Labs Laboratory Tests Test 09/27/17 22:10 09/28/17 00:05 White Blood Count 18.7 TH/MM3 Red Blood Count 4.07 MIL/MM3 Hemoglobin 9.4 GM/DL Hematocrit 30.0 % Mean Corpuscular Volume 73.6 FL Mean Corpuscular Hemoglobin 23.0 PG Mean Corpuscular Hemoglobin Concent 31.3 % Red Cell Distribution Width 22.9 % Platelet Count 305 TH/MM3 Mean Platelet Volume 7.4 FL Neutrophils (%) (Auto) 85.5 % Lymphocytes (%) (Auto) 6.3 % Monocytes (%) (Auto) 7.3 % Eosinophils (%) (Auto) 0.4 % Basophils (%) (Auto) 0.5 % Neutrophils # (Auto) 16.0 TH/MM3 Lymphocytes # (Auto) 1.2 TH/MM3 Monocytes # (Auto) 1.4 TH/MM3 Eosinophils # (Auto) 0.1 TH/MM3 Basophils # (Auto) 0.1 TH/MM3 CBC Comment AUTO DIFF Differential Comment AUTO DIFF CONFIRMED Toxic Vacuolation PRESENT Platelet Estimate NORMAL Platelet Morphology Comment NORMAL Ovalocytes 1+ Acanthocytes 1+ Keratocytes OCC Prothrombin Time 10.8 SEC Prothromb Time International Ratio 1.1 RATIO Activated Partial Thromboplast Time 28.2 SEC Blood Urea Nitrogen 45 MG/DL Creatinine 10.91 MG/DL Random Glucose 129 MG/DL Calcium Level 9.7 MG/DL Magnesium Level 2.6 MG/DL Sodium Level 138 MEQ/L Potassium Level 4.8 MEQ/L Chloride Level 101 MEQ/L Carbon Dioxide Level 25.3 MEQ/L Anion Gap 12 MEQ/L Estimat Glomerular Filtration Rate 6 ML/MIN Lactic Acid Level 0.8 mmol/L Ammonia 17 MCMOL/L Lipase 141 U/L Ethyl Alcohol Level LESS THAN 3 MG/DL MDM Medical Decision Making Medical Screen Exam Complete: Yes Emergency Medical Condition: Yes Medical Record Reviewed: Yes Interpretation(s) Last Impressions Brain MRI 09/28/17 0000 Signed Impressions: Service Date/Time: Thursday, September 28, 2017 19:07 - CONCLUSION: 1. No acute abnormality seen. 2. Evidence of prior hemorrhage in the left basal ganglia and frontoparietal white matter. 3. Atrophy. 4. Suspected small vessel ischemic change in the cerebral and pontine white matter. Eduardo Plunkett MD Abdomen X-Ray 09/28/17 0000 Signed Impressions: Service Date/Time: Thursday, September 28, 2017 18:30 - CONCLUSION: The patient is clear for MRI examination. Eduardo Plunkett MD Head CT [id number] Signed Impressions: Service Date/Time: Wednesday, September 27, 2017 23:22 - CONCLUSION: 1. Encephalomalacia left basal brain likely old infarct. 2. Cerebral atrophy without acute intracranial abnormality. Kevin Bradford MD Chest X-Ray [id number] Signed Impressions: Service Date/Time: Wednesday, September 27, 2017 22:37 - CONCLUSION: 1. Cardiomegaly. Chronic interstitial changes in the lungs, possibly pulmonary fibrosis. No effusion. Dual-lumen left-sided catheter tip in right atrium. Inocente Thompson MD Differential Diagnosis TIA, versus CVA, versus hepatic encephalopathy, versus sepsis related encephalopathy, versus electrolyte derangements that shows hyponatremia, versus pneumonia Narrative Course During the course of the patient's emergency department visit, the patient's history, examination, and differential diagnosis were reviewed with the patient. The patient was placed on a cardiac surgeon with oximetry and frequent blood pressure monitoring. The patient had IV access obtained and blood work sent for analysis. The patient had a EKG done on arrival that shows a sinus rhythm heart rate is 75, QRS duration 131 ms with an interventricular conduction delay, QTC [address] segment elevation. The patient's laboratory studies were reviewed and remarkable for a white count of 18.7, hemoglobin 9.4, platelets 305 with 85.5 neutrophils, 6.3 lymphocytes, toxic vacuolation present. The patient's white blood cell count is greatly increased compared to prior evaluation, BMP is remarkable for BUN of 45, creatinine 10.91, glucose 129, magnesium 2.6, ammonia level 17, lipase 141, PT 10.8, PTT 28.2. Alcohol less than 3 Radiology studies were reviewed and remarkable for a chest x-ray that shows cardiomegaly, chronic interstitial changes in the lungs possibly pulmonary fibrosis. CT scan of the brain shows encephalomalacia left basal brain likely old infarct, cerebral atrophy without acute intracranial hemorrhage. The patient will be admitted to the hospital for altered mentation, leukocytosis possible sepsis of undetermined origin. The patient had blood cultures 2 drawn, lactic acid sent for analysis. The patient was started on broad-spectrum antibiotic to include Zosyn and vancomycin. The patient's results were discussed with the patient, including the plan of care. I explained that further testing and/ or monitoring is indicated based on the patient's history, examination, and/ or laboratory findings. Therefore, I recommended admission for additional evaluation. The patient expressed understanding and was agreeable with this plan. The patient was admitted to the hospital in guarded condition and sent to a bed under the care of the [facility] service. Physician Communication Physician Communication The patient's case including history, pertinent physical examination findings, and laboratory studies were discussed with Dr. Soares. It was agreed that the patient would be admitted to the [facility] service. Diagnosis Primary Impression: Altered mental status Qualified Codes: R41.0 - Disorientation, unspecified Additional Impression: Leukocytosis Qualified Codes: D72.829 - Elevated white blood cell count, unspecified Admitting Information Admitting Physician Requests: it Gudelia De La Rosa MD Sep 27, 2017 22:34
[2017-09-27 22:35] VITALS: BP 146/67; PULSE 76; RESP 20; O2SAT 95
[2017-09-27 23:00] VITALS: BP 157/71; PULSE 74; RESP 14; O2SAT 95
[2017-09-27 23:04] LABS: BASOPHIL # 0.1 TH/MM3 (0-0.2); BASOPHIL % 0.5 % (0.0-2.0); EOSINOPHIL # 0.1 TH/MM3 (0-0.4); EOSINOPHIL % 0.4 % (0.0-4.0); HEMOGLOBIN 9.4 GM/DL (13.0-17.0); LYMPH % 6.3 % (9.0-44.0); LYMPHOCYTE # 1.2 TH/MM3 (1.0-4.8); MEAN CELL VOLUME 73.6 FL (80.0-100.0); MEAN CORPUSCULAR HGB CONC 31.3 % (32.0-36.0); MEAN PLATELET VOLUME 7.4 FL (7.0-11.0); MONO % 7.3 % (0.0-8.0); MONOCYTE # 1.4 TH/MM3 (0-0.9); NEUT % 85.5 % (16.0-70.0); PLATELET COUNT 305 TH/MM3 (150-450); RED BLOOD COUNT 4.07 MIL/MM3 (4.50-5.90); RED CELL DISTRIBUTION WIDTH 22.9 % (11.6-17.2); WHITE BLOOD COUNT 18.7 TH/MM3 (4.0-11.0)
--- NOTE | 2017-09-27 23:05 | RADRPT ---
EXAM DATE/TIME: 09/27/2017 22:37 [facility] COMPARISON: CHEST SINGLE AP, August 02, 2017, 9:53. INDICATIONS : AMS. Patient confused. MEDICAL HISTORY : Hypertension. Renal failure, acute. Diabetes. SURGICAL HISTORY : Right arm AV fistula. ENCOUNTER: Subsequent ACUITY: 1 day PAIN SCORE: Non-responsive. LOCATION: Bilateral chest FINDINGS: Dual-lumen catheter on the left side has its tip in the right atrium. Interstitial prominence in the lungs is similar to August 02 with probable underlying pulmonary fibrosis. There may be some mild in terstitial edema. Heart size enlarged. Right subclavian stent present. CONCLUSION: 1. Cardiomegaly. Chronic interstitial changes in the lungs, possibly pulmonary fibrosis. No effusion. Dual-lumen left-sided catheter tip in right atrium. Inocente Thompson MD on September 27, 2017 at 23:01 Board Certified Radiologist. This report was verified electronically.
[2017-09-27 23:13] LABS: INTERNATIONAL NORMALIZED RATIO 1.1 RATIO; PROTHROMBIN TIME - PATIENT 10.8 SEC (9.8-11.6)
[2017-09-27 23:38] LABS: ACANTHOCYTES 1+ (NORMAL); KERATOCYTES OCC (NORMAL)
[2017-09-27 23:39] LABS: TOXIC VACUOLATION PRESENT (NONE SEEN)
[2017-09-27 23:40] LABS: OVALOCYTES 1+ (NORMAL)
--- NOTE | 2017-09-27 23:41 | RADRPT ---
EXAM DATE/TIME: 09/27/2017 23:22 [facility] COMPARISON: No previous studies available for comparison. INDICATIONS : Altered mental status. RADIATION DOSE: 56.35 CTDIvol (mGy) MEDICAL HISTORY : Dementia. SURGICAL HISTORY : AV Shunt ENCOUNTER: Initial ACUITY: 1 day PAIN SCALE: Non-responsive LOCATION: cranial TECHNIQUE: Multiple contiguous axial images were obtained of the head. Using automated exposure control and adj ustment of the mA and/or kV according to patient size, radiation dose was kept as low as reasonably a chievable to obtain optimal diagnostic quality images. DICOM format image data is available electro nically for review and comparison. FINDINGS: CEREBRUM: Encephalomalacia left basal ganglia likely old infarct. Ventricles are prominent consistent with atro phy. No evidence of midline shift, mass lesion, hemorrhage or acute infarction. No extra-axial fluid collections are seen. POSTERIOR FOSSA: The cerebellum and brainstem are intact. The 4th ventricle is midline. The cerebellopontine angle i s unremarkable. EXTRACRANIAL: The visualized portion of the orbits is intact. SKULL: The calvaria is intact. No evidence of skull fracture. CONCLUSION: 1. Encephalomalacia left basal brain likely old infarct. 2. Cerebral atrophy without acute intracranial abnormality. Kevin Bradford MD on September 27, 2017 at 23:37 Board Certified Radiologist. This report was verified electronically.
[2017-09-28] VITALS (12 sets, daily range): BP systolic 121–154; BP diastolic 58–70; PULSE 72–89; RESP 14–18; TEMP 97.9–99.3; O2SAT 91–100
[2017-09-28] MEDS ORDERED: PIPERACIL-TAZO 3.375 GM PREMIX 50 ML IV ONE
[2017-09-28] MEDS ORDERED: VANCOMYCIN INJ 1,000 MG in SODIUM CHLOR 0.9% 250 ML INJ 250 ML IV ONE ×2
[2017-09-28 00:54] LABS: BICARBONATE 25.3 MEQ/L (21.0-32.0); BLOOD UREA NITROGEN 45 MG/DL (7-18); CALCIUM 9.7 MG/DL (8.5-10.1); CHLORIDE 101 MEQ/L (98-107); GLOMERULAR FILTRATION RATE 6 ML/MIN (>89); GLUCOSE,RANDOM 129 MG/DL (74-106); MAGNESIUM 2.6 MG/DL (1.5-2.5); SODIUM (NA) 138 MEQ/L (136-145)
[2017-09-28 01:04] LABS: CREATININE 10.91 MG/DL (0.60-1.30)
[2017-09-28] MEDS ORDERED: PROCHLORPERAZINE 25 MG SUPP RECTAL PRN (02:00)
[2017-09-28] MEDS ORDERED: SODIUM CHLORIDE 0.9% FLUSH 10 ML FLUSH IV FLUSH PRN ×2 (02:00→10:15)
[2017-09-28] MEDS ORDERED: NALOXONE HCL 0.4 MG/ML AMP IV PUSH PRN (02:00)
[2017-09-28] MEDS ORDERED: ACETAMINOPHEN 325 MG TAB PO PRN ×2 (02:00→10:15)
[2017-09-28] MEDS ORDERED: ALBU0.63 NEB (02:13)
[2017-09-28] MEDS ORDERED: TRAM50TA PO (02:13)
[2017-09-28] MEDS ORDERED: LACT10SO5 PO (02:13)
[2017-09-28] MEDS ORDERED: ERGO2000 PO (02:13)
[2017-09-28] MEDS ORDERED: NEPHTAB3 PO (02:13)
[2017-09-28] MEDS: HEPARIN SODIUM - SQ 10,000 UNITS/ML VIAL SQ SCH ×3 (07:32→22:31)
[2017-09-28] MEDS: SODIUM CHLORIDE 0.9% FLUSH 10 ML FLUSH IV FLUSH SCH ×2 (07:33→22:30)
[2017-09-28] MEDS ORDERED: SODIUM CHLOR 0.9% 1000 ML INJ 1,000 ML IV PRN (10:03)
[2017-09-28] MEDS ORDERED: SODIUM CHLOR 0.9% 1000 ML INJ 1,000 ML OTHER PRN ×2 (10:03)
--- NOTE | 2017-09-28 10:07 | PD.CONS ---
[facility] Nephrology Consult Requested By Dr. De La Rosa Reason for Consult Known ESRD on HD Primary Care Physician Unknown History of Present Illness The patient is an 82 yo AA male who is known to our services for ESRD on HD. He present to this facility yesterday after his nursing facility noted worsening mental status. He has known underlying dementia, but has been noted that it has been worsening as of late. The patient is seen laying in bed eating breakfast with the assistance of the nurse. He is oriented to person, but not place or time. CXR and CT scan overall negative. BCx pending with empiric abx given in [facility]. The patient himself does not offer any meaning complaints. Last HD 09/25. Next HD pending for today. (Elizabeth Brandt) Review of Systems ROS Limitations: Altered Mental Status (Elizabeth Brandt) Past Family Social History Allergies: Coded Allergies: No Known Allergies (Verified Allergy, Unknown, 08/02/17) Past Medical History End-stage renal disease on hemodialysis Peripheral vascular disease Diabetes mellitus Hyperlipidemia Hypertension GERD History of DVT History of CVA COPD CHF Dementia Past Surgical History AV fistula placement for dialysis 2013 Surgical control bleeding from AV fistula July 2017 Reported Medications Labetalol (Labetalol HCl) 200 Mg Tab 200 Mg PO Q8H Vitamin D2 (Ergocalciferol) 2,000 Unit Tab 50,000 Units PO WEDNESDAY Lactulose 10 Gram/15 Ml (15 Ml) Solution 15 Ml PO BID Nephro-Micah (B-Complex W/ C & Folic Acid) 1 Tab 1 Tab PO DAILY Tramadol (Tramadol HCl) 50 Mg Tab 50 Mg PO BID PRN Albuterol Neb (Albuterol Sulfate) 0.63 Mg/3 Ml Neb 0.63 Mg NEB QID NEB PRN Gabapentin 100 Mg Cap 100 Mg PO TID Furosemide 40 Mg Tab 40 Mg PO DAILY Docusate Sodium 100 Mg Tab 200 Mg PO DAILY Atorvastatin (Atorvastatin Calcium) 40 Mg Tab 40 Mg PO HS Amlodipine (Amlodipine Besylate) 10 Mg Tab 10 Mg PO DAILY Mapap (Acetaminophen) 500 Mg Cap 500 Mg PO TID Fluticasone Nasal [place] 50 Mcg/Act Naspr 50 Mcg EACH NARE DAILY 50 mcg/spray Proventil Hfa 6.7 GM Inh (Albuterol Sulfate) 90 Mcg/Act Aer 1 Puff INH QID PRN Renvela (Sevelamer Carbonate) 800 Mg Tab 800 Mg PO TIDAC Ferrous Sulfate 325 Mg (65 Mg Iron) Tablet 325 Mg PO DAILY Aspirin 81 (Aspirin) 81 Mg Tabdr 81 Mg PO DAILY Allopurinol 100 Mg Tab 100 Mg PO DAILY Active Ordered Medications Current Medications Medications (Trade) Dose Ordered Sig/Marisol Route Start Time Stop Time Status Last Admin (NS Flush) 2 ml UNSCH PRN IV FLUSH 09/28/17 02:00 (NS Flush) 2 ml BID IV FLUSH 09/28/17 09:00 09/28/17 07:33 (Tylenol) 650 mg Q4H PRN PO 09/28/17 02:00 (Compazine Supp) 25 mg Q12H PRN RECTAL 09/28/17 02:00 (Heparin Inj) 5,000 units Q8H SQ 09/28/17 06:00 09/28/17 07:32 (Narcan Inj) 0.4 mg UNSCH PRN IV PUSH 09/28/17 02:00 (Ecotrin Ec) 81 mg DAILY PO 09/29/17 09:00 (Lipitor) 40 mg HS PO 09/28/17 21:00 Family History [place] Social History Lives at nursing facility in [place] Non-smoker No EtOH No illicits (Elizabeth Brandt) Physical Exam Vital Signs Vital Signs Date Time Temp Pulse Resp B/P (MAP) Pulse Ox O2 Delivery O2 Flow Rate FiO2 09/28/17 07:10 98.4 74 18 153/68 (96) 100 Room Air 09/28/17 07:10 73 18 100 Room Air 09/28/17 07:10 74 18 100 Room Air 09/28/17 06:00 74 16 134/63 (86) 96 Room Air 09/28/17 04:00 72 14 148/67 (94) 95 Room Air 09/28/17 02:00 76 15 121/58 (79) 94 Room Air 09/28/17 01:00 76 14 142/63 (89) 95 Room Air 09/27/17 23:00 74 14 157/71 (99) 95 Room Air 09/27/17 22:35 76 20 146/67 (93) 95 Room Air 09/27/17 22:18 76 95 09/27/17 21:59 98.4 76 16 144/66 (92) 96 Physical Exam GENERAL: Laying on bed having breakfast fed to him by RN SKIN: Warm and dry. HEAD: Atraumatic. Normocephalic. EYES: Pupils equal and round. No scleral icterus. No injection or drainage. ENT: No nasal bleeding or discharge. Mucous membranes pink and moist. NECK: Trachea midline. No JVD. CARDIOVASCULAR: Regular rate and rhythm. RESPIRATORY: No accessory muscle use. Clear to auscultation. Breath sounds equal bilaterally. GASTROINTESTINAL: Abdomen soft, non-tender, nondistended. Hepatic and splenic margins not palpable. MUSCULOSKELETAL: Extremities without clubbing, cyanosis, or edema. No obvious deformities. NEUROLOGICAL: Awake and alert. PSYCHIATRIC: Appropriate mood and affect; oriented only to person Laboratory Laboratory Tests Test 09/27/17 22:10 09/28/17 00:05 White Blood Count 18.7 Red Blood Count 4.07 Hemoglobin 9.4 Hematocrit 30.0 Mean Corpuscular Volume 73.6 Mean Corpuscular Hemoglobin 23.0 Mean Corpuscular Hemoglobin Concent 31.3 Red Cell Distribution Width 22.9 Platelet Count 305 Mean Platelet Volume 7.4 Neutrophils (%) (Auto) 85.5 Lymphocytes (%) (Auto) 6.3 Monocytes (%) (Auto) 7.3 Eosinophils (%) (Auto) 0.4 Basophils (%) (Auto) 0.5 Neutrophils # (Auto) 16.0 Lymphocytes # (Auto) 1.2 Monocytes # (Auto) 1.4 Eosinophils # (Auto) 0.1 Basophils # (Auto) 0.1 CBC Comment AUTO DIFF Differential Comment AUTO DIFF CONFIRMED Toxic Vacuolation PRESENT Platelet Estimate NORMAL Platelet Morphology Comment NORMAL Ovalocytes 1+ Acanthocytes 1+ Keratocytes OCC Prothrombin Time 10.8 Prothromb Time International Ratio 1.1 Activated Partial Thromboplast Time 28.2 Blood Urea Nitrogen 45 Creatinine 10.91 Random Glucose 129 Calcium Level 9.7 Magnesium Level 2.6 Sodium Level 138 Potassium Level 4.8 Chloride Level 101 Carbon Dioxide Level 25.3 Anion Gap 12 Estimat Glomerular Filtration Rate 6 Lactic Acid Level 0.8 Ammonia 17 Lipase 141 Ethyl Alcohol Level LESS THAN 3 Date/Time Source Procedure Growth Status 09/28/17 01:30 Blood Peripheral Aerobic Blood Culture Pending Received 09/28/17 01:30 Blood Peripheral Anaerobic Blood Culture Pending Received (Elizabeth Brandt) Result Diagram: 09/27/17 2210 09/28/17 0005 Assessment and Plan Problem List: (1) End-stage renal disease on hemodialysis ICD Codes: N18.6 - End stage renal disease; Z99.2 - Dependence on renal dialysis Status: Chronic Plan: HD today as per regular schedule. Continue TTS BCx pending. No appreciable PermCath infection. Continue Renvela with meals. Check PO4 levels Medications should be adjusted for the patient's ESRD. Avoid gadolinium. (2) Altered mental status ICD Codes: R41.82 - Altered mental status, unspecified Status: Acute Plan: Etiology unclear. Baseline dementia CXR and CT scans reviewed. Nothing metabolically concerning Pending BCx results. Check UA (uncertain if he still makes urine) (3) HTN (hypertension) ICD Codes: I10 - Essential (primary) hypertension Plan: BP stable at the present. Continue home regimen (4) Anemia of renal disease ICD Codes: D63.1 - Anemia in chronic kidney disease Status: Chronic Plan: Check Fe stores. Epogen with HD if needed. (Elizabeth Brandt) Assessment and Plan The exam, history, and the medical decision-making described in the above note were completed with the assistance of the PA-Jose. I reviewed and agree with the findings presented (Trupti Arciniega MD) Elizabeth Brandt Sep 28, 2017 10:07 Trupti Arciniega MD Sep 29, 2017 10:08
[2017-09-28] MEDS ORDERED: GENTAMICIN SULFATE 20 MG/2 ML VIAL OTHER PRN (10:15)
[2017-09-28] MEDS ORDERED: cloNIDine HCL 0.1 MG TAB PO PRN (10:15)
[2017-09-28] MEDS ORDERED: ALBUMIN 25% INJ 100 ML IV PRN (10:15)
[2017-09-28] MEDS ORDERED: HEPARIN SODIUM - IV 10,000 UNITS/10 ML VIAL IV FLUSH PRN (10:15)
[2017-09-28] MEDS ORDERED: diphenhydrAMINE HCL 25 MG CAP PO PRN (10:15)
[2017-09-28] MEDS ORDERED: ONDANSETRON HCL 4 MG/2 ML VIAL IV PUSH PRN (10:15)
[2017-09-28] MEDS ORDERED: HEPARIN SODIUM - IV 10,000 UNITS/10 ML VIAL PRN (10:15)
[2017-09-28] MEDS ORDERED: GELATIN 12 MM/7 MM FOAM TOP PRN (10:15)
[2017-09-28] MEDS ORDERED: NITROGLYCERIN 0.4 MG SL 25 TABS/BTL SL PRN (10:15)
[2017-09-28] MEDS ORDERED: MANNITOL 12.5 GM/50 ML VIAL IV PRN (10:15)
--- NOTE | 2017-09-28 11:26 | PD.CONS ---
History of Present Illness Service Neurology Consult Requested By Medicine Reason for Consult Altered mental status Primary Care Physician Unknown History of Present Illness History of Present Illness The patient is an 82 yo AA male with ESRD on HD. He is admitted to the hospital after his nursing facility noted worsening mental status. Patient cannot give appreciable history, therefore this is taken from chart review. He has reported underlying dementia, but baseline mentation is uncertain at this point in time. Apparently the patient has been more confused at the facility recently and was brought in to the hospital for evaluation. He denies any physical complaints to me, but again gives very limited history. He has leukocytosis on lab workup and GFR is 6 cc/min. Ammonia level was 17. CT of the brain revealed no acute intracranial process but old left basal stroke apparent on study. MRI brain is pending. Review of Systems ROS Limitations: Altered Mental Status Past Family Social History Allergies: Coded Allergies: No Known Allergies (Verified Allergy, Unknown, 08/02/17) Past Medical History End-stage renal disease on hemodialysis Peripheral vascular disease Diabetes mellitus Hyperlipidemia Hypertension GERD History of DVT History of CVA COPD CHF Dementia Past Surgical History AV fistula placement for dialysis 2013 Surgical control bleeding from AV fistula July 2017 Reported Medications Labetalol (Labetalol HCl) 200 Mg Tab 200 Mg PO Q8H Vitamin D2 (Ergocalciferol) 2,000 Unit Tab 50,000 Units PO WEDNESDAY Lactulose 10 Gram/15 Ml (15 Ml) Solution 15 Ml PO BID Nephro-Micah (B-Complex W/ C & Folic Acid) 1 Tab 1 Tab PO DAILY Tramadol (Tramadol HCl) 50 Mg Tab 50 Mg PO BID PRN Albuterol Neb (Albuterol Sulfate) 0.63 Mg/3 Ml Neb 0.63 Mg NEB QID NEB PRN Gabapentin 100 Mg Cap 100 Mg PO TID Furosemide 40 Mg Tab 40 Mg PO DAILY Docusate Sodium 100 Mg Tab 200 Mg PO DAILY Atorvastatin (Atorvastatin Calcium) 40 Mg Tab 40 Mg PO HS Amlodipine (Amlodipine Besylate) 10 Mg Tab 10 Mg PO DAILY Mapap (Acetaminophen) 500 Mg Cap 500 Mg PO TID Fluticasone Nasal [place] 50 Mcg/Act Naspr 50 Mcg EACH NARE DAILY 50 mcg/spray Proventil Hfa 6.7 GM Inh (Albuterol Sulfate) 90 Mcg/Act Aer 1 Puff INH QID PRN Renvela (Sevelamer Carbonate) 800 Mg Tab 800 Mg PO TIDAC Ferrous Sulfate 325 Mg (65 Mg Iron) Tablet 325 Mg PO DAILY Aspirin 81 (Aspirin) 81 Mg Tabdr 81 Mg PO DAILY Allopurinol 100 Mg Tab 100 Mg PO DAILY Active Ordered Medications Current Medications Medications (Trade) Dose Ordered Sig/Marisol Route Start Time Stop Time Status Last Admin (NS Flush) 2 ml UNSCH PRN IV FLUSH 09/28/17 02:00 (NS Flush) 2 ml BID IV FLUSH 09/28/17 09:00 09/28/17 07:33 (Tylenol) 650 mg Q4H PRN PO 09/28/17 02:00 (Compazine Supp) 25 mg Q12H PRN RECTAL 09/28/17 02:00 (Heparin Inj) 5,000 units Q8H SQ 09/28/17 06:00 09/28/17 07:32 (Narcan Inj) 0.4 mg UNSCH PRN IV PUSH 09/28/17 02:00 (Ecotrin Ec) 81 mg DAILY PO 09/29/17 09:00 (Lipitor) 40 mg HS PO 09/28/17 21:00 Family History Noncontributory Social History Lives at nursing facility in [place] Non-smoker, no EtOH, no illicit drugs Laboratory Test 09/27/17 22:10 09/28/17 00:05 White Blood Count 18.7 Red Blood Count 4.07 Hemoglobin 9.4 Hematocrit 30.0 Mean Corpuscular Volume 73.6 Mean Corpuscular Hemoglobin 23.0 Mean Corpuscular Hemoglobin Concent 31.3 Red Cell Distribution Width 22.9 Platelet Count 305 Mean Platelet Volume 7.4 Neutrophils (%) (Auto) 85.5 Lymphocytes (%) (Auto) 6.3 Monocytes (%) (Auto) 7.3 Eosinophils (%) (Auto) 0.4 Basophils (%) (Auto) 0.5 Neutrophils # (Auto) 16.0 Lymphocytes # (Auto) 1.2 Monocytes # (Auto) 1.4 Eosinophils # (Auto) 0.1 Basophils # (Auto) 0.1 CBC Comment AUTO DIFF Differential Comment AUTO DIFF CONFIRMED Toxic Vacuolation PRESENT Platelet Estimate NORMAL Platelet Morphology Comment NORMAL Ovalocytes 1+ Acanthocytes 1+ Keratocytes OCC Prothrombin Time 10.8 Prothromb Time International Ratio 1.1 Activated Partial Thromboplast Time 28.2 Blood Urea Nitrogen 45 Creatinine 10.91 Random Glucose 129 Calcium Level 9.7 Magnesium Level 2.6 Sodium Level 138 Potassium Level 4.8 Chloride Level 101 Carbon Dioxide Level 25.3 Anion Gap 12 Estimat Glomerular Filtration Rate 6 Lactic Acid Level 0.8 Ammonia 17 Lipase 141 Ethyl Alcohol Level LESS THAN 3 Date/Time Source Procedure Growth Status 09/28/17 01:30 Blood Peripheral Aerobic Blood Culture Pending Received 09/28/17 01:30 Blood Peripheral Anaerobic Blood Culture Pending Received Result Diagram: 09/27/17 2210 09/28/17 0005 (Ruddy Fox) Review of Systems All other ROS: ROS reviewed as documented in chart (Ruddy Fox) Past Family Social History Allergies: Coded Allergies: No Known Allergies (Verified Allergy, Unknown, 08/02/17) Active Ordered Medications Current Medications Medications (Trade) Dose Ordered Sig/Marisol Route Start Time Stop Time Status Last Admin (NS Flush) 2 ml UNSCH PRN IV FLUSH 09/28/17 02:00 (NS Flush) 2 ml BID IV FLUSH 09/28/17 09:00 09/28/17 07:33 (Tylenol) 650 mg Q4H PRN PO 09/28/17 02:00 (Compazine Supp) 25 mg Q12H PRN RECTAL 09/28/17 02:00 (Heparin Inj) 5,000 units Q8H SQ 09/28/17 06:00 09/28/17 07:32 (Narcan Inj) 0.4 mg UNSCH PRN IV PUSH 09/28/17 02:00 (Ecotrin Ec) 81 mg DAILY PO 09/29/17 09:00 (Lipitor) 40 mg HS PO 09/28/17 21:00 Sodium Chloride 1,000 ml @ 0 mls/hr Q0M PRN OTHER 09/28/17 10:03 (Heparin Inj) 8,000 units UNSCH PRN IV FLUSH 09/28/17 10:15 Sodium Chloride 1,000 ml @ 200 mls/hr Q5H PRN IV 09/28/17 10:03 Sodium Chloride 1,000 ml @ 0 mls/hr Q0M PRN OTHER 09/28/17 10:03 (Mannitol Inj) 12.5 gm UNSCH PRN IV 09/28/17 10:15 Albumin Human 100 ml @ 60 mls/hr UNSCH PRN IV 09/28/17 10:15 (NS Flush) 5 ml UNSCH PRN IV FLUSH 09/28/17 10:15 (Heparin Inj) UNSCH PRN .XX 09/28/17 10:15 (Gentamicin Inj) 20 mg UNSCH PRN OTHER 09/28/17 10:15 (Zofran Inj) 4 mg UNSCH PRN IV PUSH 09/28/17 10:15 (Tylenol) 650 mg UNSCH PRN PO 09/28/17 10:15 (Benadryl) 25 mg UNSCH PRN PO 09/28/17 10:15 (Nitrostat Sl) 0.4 mg UNSCH PRN SL 09/28/17 10:15 (Catapres) 0.1 mg UNSCH PRN PO 09/28/17 10:15 (Gelfoam 12 Mm/7 Mm Top) 1 foam UNSCH PRN TOP 09/28/17 10:15 (Renvela) 800 mg TIDAC PO 09/28/17 12:00 (Norvasc) 10 mg DAILY PO 09/29/17 09:00 (Trandate) 200 mg Q8HR PO 09/28/17 14:00 (Ruddy Fox) Exam I&O / VS 09/28/17 09/28/17 09/29/17 15:00 23:00 07:00 Intake Total 200 ml Balance 200 ml Intake Oral 200 ml # Bowel Movements 0 Vital Signs Date Time Temp Pulse Resp B/P (MAP) Pulse Ox O2 Delivery O2 Flow Rate FiO2 09/28/17 10:58 97.9 72 17 133/67 (89) 98 09/28/17 07:10 98.4 74 18 153/68 (96) 100 Room Air 09/28/17 07:10 73 18 100 Room Air 09/28/17 07:10 74 18 100 Room Air 09/28/17 06:00 74 16 134/63 (86) 96 Room Air 09/28/17 04:00 72 14 148/67 (94) 95 Room Air 09/28/17 02:00 76 15 121/58 (79) 94 Room Air 09/28/17 01:00 76 14 142/63 (89) 95 Room Air 09/27/17 23:00 74 14 157/71 (99) 95 Room Air 09/27/17 22:35 76 20 146/67 (93) 95 Room Air 09/27/17 22:18 76 95 09/27/17 21:59 98.4 76 16 144/66 (92) 96 General: No acute distress Eye: PERRL, EOMI Respiratory: Non-labored respirations, Symmetrical expansion Cardiology: Normal rate Neurologic: Alert Psychiatric: Cooperative Exam Comments Apparatus is being set up, patient rouses easily to voice, pleasant affect, oriented to person not place or time, is to gravity no focal weakness noted, no drift, no pathologic reflexes noted, no clonus, plantar flexor, cranial nerves grossly intact, patient mumbles with apparent [place] accent (Ruddy Fox) Review/Management Diagnosis/Plan: (1) Altered mental status ICD Codes: R41.82 - Altered mental status, unspecified Status: Acute Plan: No acute intracranial process MRI brain pending EEG being initiated at this time, will follow results X line likely toxic metabolic encephalopathy Patient has reported baseline dementia, no memory medications noted on his list (2) End-stage renal disease on hemodialysis ICD Codes: N18.6 - End stage renal disease; Z99.2 - Dependence on renal dialysis Status: Chronic Plan: Nephrology following HD per nephrology (3) Anemia of renal disease ICD Codes: D63.1 - Anemia in chronic kidney disease Status: Chronic Plan: Monitor. Per nephrology and attending (4) Diabetes ICD Codes: E11.9 - Type 2 diabetes mellitus without complications Status: Chronic Plan: Glycemic control, initial glucose was 129 (Ruddy Fox) Daily Summary d/w PA. seen and examined. f/u eeg, mri brain, labs. follow exam (Alirio Brady MD) Ruddy Fox Sep 28, 2017 11:26 Alirio Brady MD Sep 28, 2017 21:39
[2017-09-28] MEDS: SEVELAMER CARBONATE 800 MG TAB PO SCH ×2 (12:00→18:07)
[2017-09-28 12:46] LABS: % SATURATION IRON PROFILE 11.5 % (20-50); IRON (FE) 21 MCG/DL (65-175); PHOSPHORUS 4.7 MG/DL (2.5-4.9); TOTAL IRON BINDING CAPACITY 183 MCG/DL (250-450)
[2017-09-28 12:48] LABS: FERRITIN 878 NG/ML (26-388)
--- NOTE | 2017-09-28 14:20 | MG ---
cc: Eh Monk MD, PhD EEG NUMBER: [id number] TECHNIQUE: This is a 17 channel EEG. DESCRIPTION: The background rhythm reveals mild slowing in the theta range at 5-6 Hz. Amplitude is about 20 microvolts. There is fairly frequent eye movement artifact and muscle artifact. There are no lateralizing features present. There are no epileptiform discharges present. Hyperventilation was not done. Photic stimulation was done with no significant driving response. INTERPRETATION: There is mild slowing in the electroencephalogram in the theta range, most likely related to a mild encephalopathy. Eh Monk MD, PhD AUTUMN/KD , 02:12 PM , 02:20 PM
--- NOTE | 2017-09-28 15:36 | EKG ---
Date Performed: 09/27/2017 Time Performed: 22:54:06 PTAGE: 82 years EKG: Sinus rhythm BORDERLINE LEFT AXIS DEVIATION INTRAVENTRICULAR CONDUCTION DELAY ABNORMAL ECG Since the PREVIOUS TRACING , no significant change noted PREVIOUS TRACIN08/15/2017 10.20 DOCTOR: Cyrus Mancia Interpretating Date/Time 09/28/2017 15:35:26
--- NOTE | 2017-09-28 16:14 | HHI.HP ---
[facility] Primary Care Physician Unknown Admission Diagnosis AMS, leukocytosis Diagnoses: Travel History International Travel<30 Days: No Contact w/Intl Traveler <30 Da: No Traveled to Known Affected Are: No History of Present Illness Patient seen this afternoon around 2 PM while in dialysis. A 2-year-old male with ESRD on hemodialysis, hypertension, CVA, DVT, who brought in secondary confusion. Patient says he feels fine. Denies any chest pain, shortness of breath. Says he does not know why he is here. He is disoriented but pleasant. He denies any headache. Review of Systems Except as stated in HPI: all other systems reviewed are Neg Past Family Social History Past Medical History Diabetes mellitus Hypertension Hyperlipidemia CHF COPD End-stage renal disease on hemodialysis Anemia GERD PZ DD History of DVT Anxiety History of CVA Past Surgical History AV fistula placement in August 2013 AV fistula repair July 2017 Reported Medications Reported Meds & Active Scripts Active Labetalol (Labetalol HCl) 200 Mg Tab 200 Mg PO Q8H Reported Vitamin D2 (Ergocalciferol) 2,000 Unit Tab 50,000 Units PO WEDNESDAY Lactulose 10 Gram/15 Ml (15 Ml) Solution 15 Ml PO BID Nephro-Micah (B-Complex W/ C & Folic Acid) 1 Tab 1 Tab PO DAILY Tramadol (Tramadol HCl) 50 Mg Tab 50 Mg PO BID PRN Albuterol Neb (Albuterol Sulfate) 0.63 Mg/3 Ml Neb 0.63 Mg NEB QID NEB PRN Gabapentin 100 Mg Cap 100 Mg PO TID Furosemide 40 Mg Tab 40 Mg PO DAILY Docusate Sodium 100 Mg Tab 200 Mg PO DAILY Atorvastatin (Atorvastatin Calcium) 40 Mg Tab 40 Mg PO HS Amlodipine (Amlodipine Besylate) 10 Mg Tab 10 Mg PO DAILY Mapap (Acetaminophen) 500 Mg Cap 500 Mg PO TID Fluticasone Nasal Superior 50 Mcg/Act Naspr 50 Mcg EACH NARE DAILY 50 mcg/spray Proventil Hfa 6.7 GM Inh (Albuterol Sulfate) 90 Mcg/Act Aer 1 Puff INH QID PRN Renvela (Sevelamer Carbonate) 800 Mg Tab 800 Mg PO TIDAC Ferrous Sulfate 325 Mg (65 Mg Iron) Tablet 325 Mg PO DAILY Aspirin 81 (Aspirin) 81 Mg Tabdr 81 Mg PO DAILY Allopurinol 100 Mg Tab 100 Mg PO DAILY Allergies: Coded Allergies: No Known Allergies (Verified Allergy, Unknown, 08/02/17) Family History patient did not answer family history. Reviewed and found to be currently noncontributory Social History nonsmoker. Nondrinker. Denies illicit drugs. Physical Exam Vital Signs Vital Signs Date Time Temp Pulse Resp B/P (MAP) Pulse Ox O2 Delivery O2 Flow Rate FiO2 09/28/17 15:05 80 09/28/17 11:50 98.5 73 16 154/70 (98) 92 09/28/17 10:58 97.9 72 17 133/67 (89) 98 09/28/17 07:10 98.4 74 18 153/68 (96) 100 Room Air 09/28/17 07:10 73 18 100 Room Air 09/28/17 07:10 74 18 100 Room Air 09/28/17 06:00 74 16 134/63 (86) 96 Room Air 09/28/17 04:00 72 14 148/67 (94) 95 Room Air 09/28/17 02:00 76 15 121/58 (79) 94 Room Air 09/28/17 01:00 76 14 142/63 (89) 95 Room Air 09/27/17 23:00 74 14 157/71 (99) 95 Room Air 09/27/17 22:35 76 20 146/67 (93) 95 Room Air 09/27/17 22:18 76 95 09/27/17 21:59 98.4 76 16 144/66 (92) 96 Physical Exam GENERAL: This is a well-nourished, well-developed patient, in no apparent distress.patient is pleasant but disoriented to place, year. SKIN: No rashes, ecchymoses or lesions. Cool and dry. AV fistula not examined while patient dialysis. HEAD: Atraumatic. Normocephalic. No temporal or scalp tenderness. EYES: Pupils equal round and reactive. Extraocular motions intact. No scleral icterus. No injection or drainage. ENT: Nose without bleeding, purulent drainage or septal hematoma. Throat without erythema, tonsillar hypertrophy or exudate. Uvula midline. Airway patent. NECK: Trachea midline. No JVD or lymphadenopathy. Supple, nontender, no meningeal signs. CARDIOVASCULAR: Regular rate and rhythm without murmurs, gallops, or rubs. RESPIRATORY: Clear to auscultation. Breath sounds equal bilaterally. No wheezes , rales, or rhonchi. GASTROINTESTINAL: Abdomen soft, non-tender, nondistended. No hepato-splenomegaly , or palpable masses. No guarding. MUSCULOSKELETAL: Extremities without clubbing, cyanosis, or edema. No joint tenderness, effusion, or edema noted. No calf tenderness. Negative Homans sign bilaterally. NEUROLOGICAL: Awake and alert. Cranial nerves II through XII intact. Motor and sensory grossly within normal limits. Five out of 5 muscle strength in all muscle groups. Normal speech. Laboratory Laboratory Tests Test 09/27/17 22:10 09/28/17 00:05 09/28/17 11:35 09/28/17 12:45 White Blood Count 18.7 Red Blood Count 4.07 Hemoglobin 9.4 Hematocrit 30.0 Mean Corpuscular Volume 73.6 Mean Corpuscular Hemoglobin 23.0 Mean Corpuscular Hemoglobin Concent 31.3 Red Cell Distribution Width 22.9 Platelet Count 305 Mean Platelet Volume 7.4 Neutrophils (%) (Auto) 85.5 Lymphocytes (%) (Auto) 6.3 Monocytes (%) (Auto) 7.3 Eosinophils (%) (Auto) 0.4 Basophils (%) (Auto) 0.5 Neutrophils # (Auto) 16.0 Lymphocytes # (Auto) 1.2 Monocytes # (Auto) 1.4 Eosinophils # (Auto) 0.1 Basophils # (Auto) 0.1 CBC Comment AUTO DIFF Differential Comment AUTO DIFF CONFIRMED Toxic Vacuolation PRESENT Platelet Estimate NORMAL Platelet Morphology Comment NORMAL Ovalocytes 1+ Acanthocytes 1+ Keratocytes OCC Prothrombin Time 10.8 Prothromb Time International Ratio 1.1 Activated Partial Thromboplast Time 28.2 Blood Urea Nitrogen 45 Creatinine 10.91 Random Glucose 129 Calcium Level 9.7 Magnesium Level 2.6 Sodium Level 138 Potassium Level 4.8 Chloride Level 101 Carbon Dioxide Level 25.3 Anion Gap 12 Estimat Glomerular Filtration Rate 6 Lactic Acid Level 0.8 Ammonia 17 Lipase 141 Ethyl Alcohol Level LESS THAN 3 Phosphorus Level 4.7 Iron Level 21 Total Iron Binding Capacity 183 Percent Iron Saturation 11.5 Ferritin 878 Vitamin B12 Level 707 Parathyroid Hormone (Intact) 228.7 Date/Time Source Procedure Growth Status 09/28/17 01:30 Blood Peripheral Aerobic Blood Culture Pending Received 09/28/17 01:30 Blood Peripheral Anaerobic Blood Culture Pending Received Result Diagram: 09/27/170 09/28/17 0005 Caprini VTE Risk Assessment Caprini VTE Risk Assessment: Mod/High Risk (score >= 2) Caprini Risk Assessment Model Point Value = 1 Point Value = 2 Point Value = 3 Point Value = 5 Age 41-60 Minor surgery BMI > 25 kg/m2 Swollen legs Varicose veins or History of unexplained or recurrent spontaneous Oral contraceptives or hormone replacement Sepsis (< 1 month) Serious lung disease, including pneumonia (< 1 month) Abnormal pulmonary function Acute myocardial infarction Congestive heart failure (< 1 month) History of inflammatory bowel disease Medical patient at bed rest Age 61-74 Arthroscopic surgery Major open surgery (> 45 min) Laparoscopic surgery (> 45 min) Malignancy Confined to bed (> 72 hours) Immobilizing plaster cast Central venous access Age >= 75 History of VTE Family history of VTE Factor V Leiden Prothrombin [id number] Lupus anticoagulant Anticardiolipin antibodies Elevated serum homocysteine Heparin-induced thrombocytopenia Other congenital or acquired thrombophilia Stroke (< 1 month) Elective arthroplasty Hip, pelvis, or leg fracture Acute spinal cord injury (< 1 month) Prophylaxis Regimen Total Risk Factor Score Risk Level Prophylaxis Regimen 0-1 Low Early ambulation 2 Moderate Order ONE of the following: *Sequential Compression Device (SCD) *Heparin 5000 units SQ BID 3-4 Higher Order ONE of the following medications: *Heparin 5000 units SQ TID *Enoxaparin/Lovenox 40 mg SQ daily (WT < 150 kg, CrCl > 30 mL/min) *Enoxaparin/Lovenox 30 mg SQ daily (WT < 150 kg, CrCl > 10-29 mL/min) *Enoxaparin/Lovenox 30 mg SQ BID (WT < 150 kg, CrCl > 30 mL/min) AND/OR *Sequential Compression Device (SCD) 5 or more Highest Order ONE of the following medications: *Heparin 5000 units SQ TID (Preferred with Epidurals) *Enoxaparin/Lovenox 40 mg SQ daily (WT < 150 kg, CrCl > 30 mL/min) *Enoxaparin/Lovenox 30 mg SQ daily (WT < 150 kg, CrCl > 10-29 mL/min) *Enoxaparin/Lovenox 30 mg SQ BID (WT < 150 kg, CrCl > 30 mL/min) AND *Sequential Compression Device (SCD) Assessment and Plan Assessment and Plan //Encephalopathy //Reported history of dementia. = CT head no acute findings. MRI pending. -No meningeal signs. -Neurology following. Appreciate assistance. EEG is pending. //End-stage renal disease on hemodialysis. -Nephrology consulted. Continue HD //Anemia of renal disease: Stable. //Leukocytosis. = 18. Otherwise without signs and symptoms of sepsis. Off antibiotics. Continue to monitor. Blood cultures pending. //Hypertension. Pressure acceptable with. Hold labetalol and amlodipine due to relative low blood pressure. Continue to monitor. //Diabetes mellitus. Continue diabetic diet and sliding scale. //Reported history of DVT. Uncertain if provoked. Patient also with history of basal ganglia bleed apparently on MRI. Not on chronic anticoagulation Discussed Condition With patient, nurse Will Glass MD Sep 28, 2017 16:14
[2017-09-28] MEDS: INSULIN ASPART SUPPLEMENTAL SCALE SQ SCH ×2 (17:00→21:00)
[2017-09-28] MEDS: LABETALOL HCL 200 MG TAB PO SCH ×2 (18:06→22:32)
--- NOTE | 2017-09-28 18:57 | RADRPT ---
EXAM DATE/TIME: 09/28/2017 18:30 [facility] COMPARISON: No previous studies available for comparison. INDICATIONS : MRI clearance. MEDICAL HISTORY : Dementia. SURGICAL HISTORY : AV Shunt ENCOUNTER: Initial ACUITY: 1 day PAIN SCORE: Non-responsive. LOCATION: Abdomen. FINDINGS: Supine view of the abdomen was performed. The abdominal bowel gas pattern is normal. No abnormal ma sses, calcifications, or organomegaly is seen. Prostate markers seeds are present. There is a cathet er seen over the SVC and right atrium. Degenerative changes seen in the lumbar spine. CONCLUSION: The patient is clear for MRI examination. Eduardo Plunkett MD on September 28, 2017 at 18:54 Board Certified Radiologist. This report was verified electronically.
--- NOTE | 2017-09-28 20:17 | RADRPT ---
EXAM DATE/TIME: 09/28/2017 19:07 [facility] COMPARISON: CT BRAIN W/O CONTRAST, September 27, 2017, 23:22. INDICATIONS : CVA. Confusion. MEDICAL HISTORY : Carcinoma, prostate. Hypertension. Hypercholesterolemia. CVA, DM, GERD, Gout. SURGICAL HISTORY : Prostatectomy. ENCOUNTER: Initial ACUITY: 1 day PAIN SCORE: Nonresponsive. LOCATION: Bilateral cranial TECHNIQUE: Multiplanar, multisequence MRI of the brain was performed without contrast. FINDINGS: CEREBRUM: The ventricles and cortical sulci are widened. There is increased signal within the left frontopariet al white matter and extending into the posterior left basal ganglia likely from prior hemorrhage. The re is abnormal signal on the SWI images in this region. Hemorrhage is described on prior report from 2010. The images for this exam are not available at this time. No acute areas of hemorrhage are seen. No evidence of midline shift, mass lesion, or acute infarction. No extraaxial fluid collections are seen. The pituitary gland and suprasellar cistern are normal in configuration. WHITE MATTER: There is scattered areas of increased signal in the cerebral and pontine white matter. POSTERIOR FOSSA: The cerebellum and brainstem are intact. The 4th ventricle is midline. The cerebellopontine angle is unremarkable. The cerebellar tonsils are normal in position. DIFFUSION IMAGING: No focal areas of restricted diffusion are seen. No evidence of acute infarction. EXTRACRANIAL: The visualized portions of the orbits and paranasal sinuses are unremarkable. CONCLUSION: 1. No acute abnormality seen. 2. Evidence of prior hemorrhage in the left basal ganglia and frontoparietal white matter. 3. Atrophy. 4. Suspected small vessel ischemic change in the cerebral and pontine white matter. Eduardo Plunkett MD on September 28, 2017 at 20:11 Board Certified Radiologist. This report was verified electronically.
[2017-09-28] MEDS: ATORVASTATIN 40 MG TAB PO SCH (22:31)
[2017-09-29] VITALS (8 sets, daily range): BP systolic 127–161; BP diastolic 60–72; PULSE 57–84; RESP 15–18; TEMP 98.1–99; O2SAT 89–95
[2017-09-29] MEDS: LABETALOL HCL 200 MG TAB PO SCH ×3 (05:55→21:11)
[2017-09-29] MEDS: HEPARIN SODIUM - SQ 10,000 UNITS/ML VIAL SQ SCH ×3 (05:56→21:11)
[2017-09-29] MEDS: INSULIN ASPART SUPPLEMENTAL SCALE SQ SCH ×4 (08:00→21:00)
--- NOTE | 2017-09-29 08:23 | HHI.PR ---
Review/Management Diagnosis/Plan: (1) Altered mental status ICD Codes: R41.82 - Altered mental status, unspecified Status: Acute Plan: mri brain naicp eeg- mild encephalopathy looks pleasantly confused; probable underlying dementia and may not be far from his baseline no fever but leukocytosis. elevated esr/crp cx's pending (2) End-stage renal disease on hemodialysis ICD Codes: N18.6 - End stage renal disease; Z99.2 - Dependence on renal dialysis Status: Chronic Plan: Nephrology following HD per nephrology (3) Anemia of renal disease ICD Codes: D63.1 - Anemia in chronic kidney disease Status: Chronic Plan: Monitor. Per nephrology and attending (4) Diabetes ICD Codes: E11.9 - Type 2 diabetes mellitus without complications Status: Chronic Plan: Glycemic control, initial glucose was 129 Daily Summary d/w PA. seen and examined. f/u eeg, mri brain, labs. follow exam Subjective Subjective Comments No acute events reported No headache No chest pain No dyspnea Active Medications Current Medications Medications (Trade) Dose Ordered Sig/Marisol Route Start Time Stop Time Status Last Admin (NS Flush) 2 ml UNSCH PRN IV FLUSH 09/28/17 02:00 (NS Flush) 2 ml BID IV FLUSH 09/28/17 09:00 09/28/17 22:30 (Tylenol) 650 mg Q4H PRN PO 09/28/17 02:00 (Compazine Supp) 25 mg Q12H PRN RECTAL 09/28/17 02:00 (Heparin Inj) 5,000 units Q8H SQ 09/28/17 06:00 09/29/17 05:56 (Narcan Inj) 0.4 mg UNSCH PRN IV PUSH 09/28/17 02:00 (Ecotrin Ec) 81 mg DAILY PO 09/29/17 09:00 (Lipitor) 40 mg HS PO 09/28/17 21:00 09/28/17 22:31 Sodium Chloride 1,000 ml @ 0 mls/hr Q0M PRN OTHER 09/28/17 10:03 (Heparin Inj) 8,000 units UNSCH PRN IV FLUSH 09/28/17 10:15 Sodium Chloride 1,000 ml @ 200 mls/hr Q5H PRN IV 09/28/17 10:03 Sodium Chloride 1,000 ml @ 0 mls/hr Q0M PRN OTHER 09/28/17 10:03 (Mannitol Inj) 12.5 gm UNSCH PRN IV 09/28/17 10:15 Albumin Human 100 ml @ 60 mls/hr UNSCH PRN IV 09/28/17 10:15 (NS Flush) 5 ml UNSCH PRN IV FLUSH 09/28/17 10:15 (Heparin Inj) UNSCH PRN .XX 09/28/17 10:15 (Gentamicin Inj) 20 mg UNSCH PRN OTHER 09/28/17 10:15 (Zofran Inj) 4 mg UNSCH PRN IV PUSH 09/28/17 10:15 (Tylenol) 650 mg UNSCH PRN PO 09/28/17 10:15 (Benadryl) 25 mg UNSCH PRN PO 09/28/17 10:15 (Nitrostat Sl) 0.4 mg UNSCH PRN SL 09/28/17 10:15 (Catapres) 0.1 mg UNSCH PRN PO 09/28/17 10:15 (Gelfoam 12 Mm/7 Mm Top) 1 foam UNSCH PRN TOP 09/28/17 10:15 (Renvela) 800 mg TIDAC PO 09/28/17 12:00 09/28/17 18:07 (Norvasc) 10 mg DAILY PO 09/29/17 09:00 (Trandate) 200 mg Q8HR PO 09/28/17 14:00 09/29/17 05:55 (NovoLOG SUPPLEMENTAL SCALE) 1 ACHS SLIDING SCALE SQ 09/28/17 17:00 Allergies Allergies Coded Allergies No Known Allergies (Verified Allergy, Unknown, 08/02/17) Review of Systems All other ROS: ROS reviewed as documented in chart Exam I&O / VS Vital Signs Date Time Temp Pulse Resp B/P (MAP) Pulse Ox O2 Delivery O2 Flow Rate FiO2 09/29/17 07:10 98.1 76 18 161/71 (101) 91 09/29/17 04:07 99.0 84 15 158/70 (99) 89 09/29/17 04:05 82 09/29/17 00:16 98.2 82 16 141/65 (90) 91 09/28/17 23:54 78 09/28/17 22:50 81 09/28/17 21:50 98.5 86 16 152/67 (95) 93 09/28/17 20:33 99.3 89 16 148/68 (94) 91 09/28/17 15:05 80 09/28/17 11:50 98.5 73 16 154/70 (98) 92 09/28/17 10:58 97.9 72 17 133/67 (89) 98 General: No acute distress Eye: PERRL, EOMI Respiratory: Non-labored respirations, Symmetrical expansion Cardiology: Normal rate Neurologic: Alert, Normal motor, No focal defects, CN II-XII intact, Normal DTR 's Psychiatric: Cooperative Exam Comments alert, ox 2, not to exact date, follows, dysfluency, impaired short-term memory , neck supple, no evangelical tenderness, bridges to gravity Objective Micro and Labs Laboratory Tests Test 09/28/17 11:35 09/28/17 12:45 09/29/17 07:14 Phosphorus Level 4.7 Iron Level 21 Total Iron Binding Capacity 183 Percent Iron Saturation 11.5 Ferritin 878 C-Reactive Protein 19.00 Vitamin B12 Level 707 Parathyroid Hormone (Intact) 228.7 Date/Time Source Procedure Growth Status 09/28/17 01:30 Blood Peripheral Aerobic Blood Culture Pending Received 09/28/17 01:30 Blood Peripheral Anaerobic Blood Culture Pending Received Alirio Brady MD Sep 29, 2017 08:23
[2017-09-29 08:26] LABS: ALBUMIN 3.3 GM/DL (3.4-5.0); ALKALINE PHOSPHATASE 136 U/L (45-117); ALT (GPT) 14 U/L (12-78); AST (GOT) 13 U/L (15-37); BICARBONATE 27.1 MEQ/L (21.0-32.0); BLOOD UREA NITROGEN 39 MG/DL (7-18); CALCIUM 9.5 MG/DL (8.5-10.1); CHLORIDE 100 MEQ/L (98-107); GLOMERULAR FILTRATION RATE 7 ML/MIN (>89); GLUCOSE,RANDOM 89 MG/DL (74-106); SODIUM (NA) 138 MEQ/L (136-145); TOTAL BILIRUBIN ADULT 0.5 MG/DL (0.2-1.0); TOTAL PROTEIN 8.2 GM/DL (6.4-8.2)
[2017-09-29] MEDS: SEVELAMER CARBONATE 800 MG TAB PO SCH ×3 (08:45→18:24)
[2017-09-29] MEDS: ASPIRIN EC 81 MG TABEC PO SCH (08:45)
[2017-09-29] MEDS: SODIUM CHLORIDE 0.9% FLUSH 10 ML FLUSH IV FLUSH SCH ×2 (08:46→20:42)
[2017-09-29 09:31] LABS: AUTOMATED NEUTROPHIL # 9.7 TH/MM3 (1.8-7.7); BASOPHIL # 0.1 TH/MM3 (0-0.2); BASOPHIL % 0.5 % (0.0-2.0); EOSINOPHIL # 0.4 TH/MM3 (0-0.4); EOSINOPHIL % 3.6 % (0.0-4.0); HEMATOCRIT 32.1 % (39.0-51.0); HEMOGLOBIN 9.9 GM/DL (13.0-17.0); LYMPH % 9.6 % (9.0-44.0); LYMPHOCYTE # 1.2 TH/MM3 (1.0-4.8); MEAN CELL VOLUME 73.5 FL (80.0-100.0); MEAN CORPUSCULAR HEMOGLOBIN 22.7 PG (27.0-34.0); MEAN CORPUSCULAR HGB CONC 30.9 % (32.0-36.0); MEAN PLATELET VOLUME 7.8 FL (7.0-11.0); MONO % 7.7 % (0.0-8.0); NEUT % 78.6 % (16.0-70.0); PLATELET COUNT 331 TH/MM3 (150-450); RED BLOOD COUNT 4.36 MIL/MM3 (4.50-5.90); RED CELL DISTRIBUTION WIDTH 21.6 % (11.6-17.2); WHITE BLOOD COUNT 12.4 TH/MM3 (4.0-11.0)
--- NOTE | 2017-09-29 10:12 | HHI.NPPN ---
Subjective History of Present Illness The patient is an 82 yo AA male who is known to our services for ESRD on HD. He present to this facility yesterday after his nursing facility noted worsening mental status. He has known underlying dementia, but has been noted that it has been worsening as of late. The patient is seen laying in bed eating breakfast with the assistance of the nurse. He is oriented to person, but not place or time. CXR and CT scan overall negative. BCx pending with empiric abx given in [facility]. Interval History Patient pleasant today. Responding to simple questions appropriately not too far off from his baseline. Objective Data Data Vital Signs Date Time Temp Pulse Resp B/P (MAP) Pulse Ox O2 Delivery O2 Flow Rate FiO2 09/29/17 07:10 98.1 76 18 161/71 (101) 91 09/29/17 04:07 99.0 84 15 158/70 (99) 89 09/29/17 04:05 82 09/29/17 00:16 98.2 82 16 141/65 (90) 91 09/28/17 23:54 78 09/28/17 22:50 81 09/28/17 21:50 98.5 86 16 152/67 (95) 93 09/28/17 20:33 99.3 89 16 148/68 (94) 91 09/28/17 15:05 80 09/28/17 11:50 98.5 73 16 154/70 (98) 92 09/28/17 10:58 97.9 72 17 133/67 (89) 98 -: 09/29/17 0714 09/29/17 0714 Tubes & Lines: Vas-Cath Physical Exam General Appearance: Well Developed, Well Nourished, Comfortable Eyes Eye Exam: Sclera White Pulmonary Resp Exam: Clear Bilaterally, Breath Sounds Equal, No Distress Cardiology CV Exam: Regular, Normal Sinus Rhythm Gastrointestinal/Abdomen GI Exam: Soft, Non-Tender Neurologic Neuro Exam: Alert, Awake Psychiatric Psych Exam: Appropriate Responses Assessment/Plan Discussed Condition With: Patient Problem List: (1) End-stage renal disease on hemodialysis ICD Codes: N18.6 - End stage renal disease; Z99.2 - Dependence on renal dialysis Status: Chronic Plan: HD today as per regular schedule. Continue TTS BCx still pending. No appreciable PermCath infection. Continue Renvela with meals. Check PO4 levels Discharge planning per primary care physician. Medications should be adjusted for the patient's ESRD. Avoid gadolinium. (2) Altered mental status ICD Codes: R41.82 - Altered mental status, unspecified Status: Acute Plan: Etiology unclear. Baseline dementia CXR and CT scans reviewed. Nothing metabolically concerning Pending BCx results. Check UA (uncertain if he still makes urine) (3) HTN (hypertension) ICD Codes: I10 - Essential (primary) hypertension Plan: BP stable at the present. Continue home regimen (4) Anemia of renal disease ICD Codes: D63.1 - Anemia in chronic kidney disease Status: Chronic Plan: Iron saturation slightly low. Consider Venofer if blood cultures negative. Trupti Arcinieag MD Sep 29, 2017 10:12
[2017-09-29 11:11] LABS: ACANTHOCYTES 1+ (NORMAL)
[2017-09-29 11:12] LABS: OVALOCYTES 1+ (NORMAL)
[2017-09-29] MEDS ORDERED: DIATRIZOATE MEGLUM/DIATRIZOATE SOD 9 ML CUP PO ONE (15:15)
[2017-09-29] MEDS: ATORVASTATIN 40 MG TAB PO SCH (20:42)
--- NOTE | 2017-09-29 22:44 | RADRPT ---
EXAM DATE/TIME: 09/29/2017 22:21 [facility] COMPARISON: No previous studies available for comparison. INDICATIONS : Abdominal pain. ORAL CONTRAST: Prescribed oral contrast ingested. RADIATION DOSE: 10.12 CTDIvol (mGy) MEDICAL HISTORY : Carcinoma, prostate. Hernia, hiatal. Dementia.Renal failure. Dialysis. COPD. CHF. Diabetes. SURGICAL HISTORY : AV Shunt. ENCOUNTER: Initial ACUITY: 2 days PAIN SCALE: 6/10 LOCATION: Abdomen. TECHNIQUE: Volumetric scanning of the abdomen and pelvis was performed. Using automated exposure control and ad justment of the mA and/or kV according to patient size, radiation dose was kept as low as reasonably achievable to obtain optimal diagnostic quality images. DICOM format image data is available electro nically for review and comparison. FINDINGS: LOWER LUNGS: There is interstitial disease at the bases. The heart size appears enlarged. LIVER: Homogeneous density without lesion. There is no dilation of the biliary tree. No calcified gallston es. SPLEEN: Normal size without lesion. PANCREAS: Within normal limits. KIDNEYS: There are low density masses seen in the kidneys bilaterally likely related to cysts although they're nonspecific on this noncontrast CT examination. Hydronephrosis is not seen. The kidneys appear small suggesting some chronic medical renal disease. ADRENAL GLANDS: Within normal limits. VASCULAR: There is no aortic aneurysm. Atherosclerotic calcifications are seen throughout. 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 BOWEL/MESENTERY: Colonic diverticula are seen the left-sided colon. Significant inflammatory change is not seen. ABDOMINAL WALL: Within normal limits. RETROPERITONEUM: There is no lymphadenopathy. BLADDER: No wall thickening or mass. REPRODUCTIVE: Marker seeds are seen at the prostate. INGUINAL: There is no lymphadenopathy or hernia. MUSCULOSKELETAL: Degenerative changes seen in the lumbar spine. CONCLUSION: 1. Colonic diverticula in the left-sided colon. Significant surrounding inflammatory change is not se en. 2. Cardiomegaly with increased interstitial markings which could represent edema. 3. Small kidneys bilaterally likely related to chronic medical renal disease. There are bilateral hayden al masses likely related to cysts although these are nonspecific on this noncontrast CT examination. 4. Atherosclerotic calcification seen throughout. There is aneurysmal dilatation of the common iliac arteries bilaterally. Eduardo Plunkett MD on September 29, 2017 at 22:33 Board Certified Radiologist. This report was verified electronically.
[2017-09-29] MEDS ORDERED: LEVOFLOXACIN 750 MG TAB PO ONE (23:30)
--- NOTE | 2017-09-29 23:52 | HHI.PR ---
Subjective Remarks Patient appears to be more alert today. Reporting left lower quadrant abdominal pain, but says he is not sure how long this has been going on.he does not think he has had diarrhea. Objective Vital Signs Date Time Temp Pulse Resp B/P (MAP) Pulse Ox O2 Delivery O2 Flow Rate FiO2 09/29/17 21:54 98.2 73 16 161/72 (101) 95 09/29/17 15:01 98.2 57 16 127/60 (82) 95 09/29/17 11:30 98.3 73 18 148/65 (92) 92 09/29/17 07:10 98.1 76 18 161/71 (101) 91 09/29/17 04:07 99.0 84 15 158/70 (99) 89 09/29/17 04:05 82 09/29/17 00:16 98.2 82 16 141/65 (90) 91 09/28/17 23:54 78 Result Diagram: 09/29/1714 09/29/17713 Objective Remarks GENERAL: sitting up in bed. Appears comfortable. More alert than yesterday. Smiling. Disoriented but pleasant SKIN: Warm and dry. HEAD: Normocephalic. EYES: No scleral icterus. No injection or drainage. NECK: Supple, trachea midline. No JVD. CARDIOVASCULAR: Regular rate and rhythm without murmurs, gallops, or rubs. RESPIRATORY: Breath sounds equal bilaterally. No accessory muscle use. GASTROINTESTINAL: Abdomen, nondistended. tender to moderate palpation left lower quadrant. No rebound or guarding. MUSCULOSKELETAL: No cyanosis, or edema. BACK: Nontender without obvious deformity. No CVA tenderness. A/P Assessment and Plan //Encephalopathy //Reported history of dementia. = CT head no acute findings. MRI pending. -No meningeal signs. -Neurology following. Appreciate assistance. EEG is pending. //Abdominal pain. //Possible colitis/thyroiditis. -With left lower quadrant tenderness on exam. CT abdomen with no acute findings = Will start on antibiotics due to abdominal tenderness on exam. 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 Follow-up primary care as outpatient. //End-stage renal disease on hemodialysis. -Nephrology consulted. Continue HD //Anemia of renal disease: Stable. //Leukocytosis. = 18. Otherwise without signs and symptoms of sepsis. Off antibiotics. Continue to monitor. Blood cultures pending. 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 //Hypertension. Pressure acceptable with. Hold labetalol and amlodipine due to relative low blood pressure. Continue to monitor. //Diabetes mellitus. Continue diabetic diet and sliding scale. //Reported history of DVT. Uncertain if provoked. Patient also with history of basal ganglia bleed apparently on MRI. Not on chronic anticoagulation Discharge Planning likely discharge to SNF tomorrow. Will Glass MD Sep 29, 2017 23:52
[2017-09-30] VITALS (8 sets, daily range): BP systolic 107–165; BP diastolic 56–78; PULSE 61–78; RESP 16–18; TEMP 97.3–97.6; O2SAT 92–98
[2017-09-30] MEDS: metroNIDAZOLE 500 MG TAB PO SCH ×3 (00:54→18:45)
[2017-09-30] MEDS: LABETALOL HCL 200 MG TAB PO SCH ×2 (06:05→14:00)
[2017-09-30] MEDS: HEPARIN SODIUM - SQ 10,000 UNITS/ML VIAL SQ SCH ×2 (06:05→18:45)
[2017-09-30 07:02] LABS: AUTOMATED NEUTROPHIL # 6.5 TH/MM3 (1.8-7.7); BASOPHIL % 0.4 % (0.0-2.0); EOSINOPHIL # 0.5 TH/MM3 (0-0.4); EOSINOPHIL % 5.6 % (0.0-4.0); HEMATOCRIT 29.6 % (39.0-51.0); HEMOGLOBIN 9.3 GM/DL (13.0-17.0); LYMPH % 12.5 % (9.0-44.0); LYMPHOCYTE # 1.1 TH/MM3 (1.0-4.8); MEAN CELL VOLUME 72.4 FL (80.0-100.0); MEAN CORPUSCULAR HEMOGLOBIN 22.8 PG (27.0-34.0); MEAN CORPUSCULAR HGB CONC 31.5 % (32.0-36.0); MEAN PLATELET VOLUME 8.2 FL (7.0-11.0); MONO % 8.2 % (0.0-8.0); MONOCYTE # 0.7 TH/MM3 (0-0.9); NEUT % 73.3 % (16.0-70.0); PLATELET COUNT 363 TH/MM3 (150-450); RED BLOOD COUNT 4.09 MIL/MM3 (4.50-5.90); RED CELL DISTRIBUTION WIDTH 21.1 % (11.6-17.2); WHITE BLOOD COUNT 8.9 TH/MM3 (4.0-11.0)
[2017-09-30 07:41] LABS: BICARBONATE 26.7 MEQ/L (21.0-32.0); CALCIUM 9.3 MG/DL (8.5-10.1); MAGNESIUM 2.4 MG/DL (1.5-2.5); PHOSPHORUS 4.6 MG/DL (2.5-4.9)
[2017-09-30 07:50] LABS: CREATININE 11.05 MG/DL (0.60-1.30)
[2017-09-30] MEDS: INSULIN ASPART SUPPLEMENTAL SCALE SQ SCH ×3 (08:00→17:00)
[2017-09-30 09:08] LABS: ACANTHOCYTES 1+ (NORMAL)
[2017-09-30 09:09] LABS: KERATOCYTES 1+ (NORMAL)
[2017-09-30] MEDS: SEVELAMER CARBONATE 800 MG TAB PO SCH ×3 (09:12→18:45)
[2017-09-30] MEDS: ASPIRIN EC 81 MG TABEC PO SCH (09:13)
[2017-09-30] MEDS: SODIUM CHLORIDE 0.9% FLUSH 10 ML FLUSH IV FLUSH SCH (09:13)
--- NOTE | 2017-09-30 09:23 | HHI.PR ---
Review/Management Diagnosis/Plan: (1) Altered mental status ICD Codes: R41.82 - Altered mental status, unspecified Status: Acute Plan: mri brain naicp eeg- mild encephalopathy looks pleasantly confused; probable underlying dementia and may not be far from his baseline no fever. no longer with leukocytosis but placed on abx. elevated esr/crp cx's ngtd d/c planning from neuro no driving. needs supervision outpatient f/u (2) End-stage renal disease on hemodialysis ICD Codes: N18.6 - End stage renal disease; Z99.2 - Dependence on renal dialysis Status: Chronic Plan: Nephrology following HD per nephrology (3) Anemia of renal disease ICD Codes: D63.1 - Anemia in chronic kidney disease Status: Chronic Plan: Monitor. Per nephrology and attending (4) Diabetes ICD Codes: E11.9 - Type 2 diabetes mellitus without complications Status: Chronic Plan: Glycemic control, initial glucose was 129 Daily Summary d/w PA. seen and examined. f/u eeg, mri brain, labs. follow exam Subjective Subjective Comments No acute events reported No headache No chest pain No dyspnea Active Medications Current Medications Medications (Trade) Dose Ordered Sig/Marisol Route Start Time Stop Time Status Last Admin (NS Flush) 2 ml UNSCH PRN IV FLUSH 09/28/17 02:00 (NS Flush) 2 ml BID IV FLUSH 09/28/17 09:00 09/30/17 09:13 (Tylenol) 650 mg Q4H PRN PO 09/28/17 02:00 (Compazine Supp) 25 mg Q12H PRN RECTAL 09/28/17 02:00 (Heparin Inj) 5,000 units Q8H SQ 09/28/17 06:00 09/30/17 06:05 (Narcan Inj) 0.4 mg UNSCH PRN IV PUSH 09/28/17 02:00 (Ecotrin Ec) 81 mg DAILY PO 09/29/17 09:00 09/30/17 09:13 (Lipitor) 40 mg HS PO 09/28/17 21:00 09/29/17 20:42 Sodium Chloride 1,000 ml @ 0 mls/hr Q0M PRN OTHER 09/28/17 10:03 (Heparin Inj) 8,000 units UNSCH PRN IV FLUSH 09/28/17 10:15 Sodium Chloride 1,000 ml @ 200 mls/hr Q5H PRN IV 09/28/17 10:03 Sodium Chloride 1,000 ml @ 0 mls/hr Q0M PRN OTHER 09/28/17 10:03 (Mannitol Inj) 12.5 gm UNSCH PRN IV 09/28/17 10:15 Albumin Human 100 ml @ 60 mls/hr UNSCH PRN IV 09/28/17 10:15 (NS Flush) 5 ml UNSCH PRN IV FLUSH 09/28/17 10:15 (Heparin Inj) UNSCH PRN .XX 09/28/17 10:15 (Gentamicin Inj) 20 mg UNSCH PRN OTHER 09/28/17 10:15 (Zofran Inj) 4 mg UNSCH PRN IV PUSH 09/28/17 10:15 (Tylenol) 650 mg UNSCH PRN PO 09/28/17 10:15 (Benadryl) 25 mg UNSCH PRN PO 09/28/17 10:15 (Nitrostat Sl) 0.4 mg UNSCH PRN SL 09/28/17 10:15 (Catapres) 0.1 mg UNSCH PRN PO 09/28/17 10:15 (Gelfoam 12 Mm/7 Mm Top) 1 foam UNSCH PRN TOP 09/28/17 10:15 (Renvela) 800 mg TIDAC PO 09/28/17 12:00 09/30/17 09:12 (Norvasc) 10 mg DAILY PO 09/29/17 09:00 09/30/17 09:13 (Trandate) 200 mg Q8HR PO 09/28/17 14:00 09/30/17 06:05 (NovoLOG SUPPLEMENTAL SCALE) 1 ACHS SLIDING SCALE SQ 09/28/17 17:00 (Levaquin) 500 mg Q48H PO 10/01/17 09:00 (Flagyl) 500 mg Q8HR PO 09/29/17 23:45 09/30/17 06:05 Allergies Allergies Coded Allergies No Known Allergies (Verified Allergy, Unknown, 08/02/17) Review of Systems All other ROS: ROS reviewed as documented in chart Exam I&O / VS Vital Signs Date Time Temp Pulse Resp B/P (MAP) Pulse Ox O2 Delivery O2 Flow Rate FiO2 09/30/17 07:14 97.6 66 18 165/78 (107) 93 09/30/17 05:12 97.3 71 16 153/71 (98) 97 09/30/17 03:30 78 09/30/17 02:31 97.6 69 16 151/70 (97) 92 09/30/17 00:30 61 09/29/17 21:59 74 09/29/17 21:54 98.2 73 16 161/72 (101) 95 09/29/17 15:01 98.2 57 16 127/60 (82) 95 09/29/17 11:30 98.3 73 18 148/65 (92) 92 General: No acute distress Eye: PERRL, EOMI Respiratory: Non-labored respirations, Symmetrical expansion Cardiology: Normal rate Neurologic: Alert, Normal motor, No focal defects, CN II-XII intact, Normal DTR 's Psychiatric: Cooperative Exam Comments alert, ox 2, not to exact date, follows, calm, pleasant, dysfluency, impaired short-term memory, neck supple, no lutheran tenderness, bridges to gravity Objective Micro and Labs Laboratory Tests Test 09/30/17 05:46 White Blood Count 8.9 Red Blood Count 4.09 Hemoglobin 9.3 Hematocrit 29.6 Mean Corpuscular Volume 72.4 Mean Corpuscular Hemoglobin 22.8 Mean Corpuscular Hemoglobin Concent 31.5 Red Cell Distribution Width 21.1 Platelet Count 363 Mean Platelet Volume 8.2 Neutrophils (%) (Auto) 73.3 Lymphocytes (%) (Auto) 12.5 Monocytes (%) (Auto) 8.2 Eosinophils (%) (Auto) 5.6 Basophils (%) (Auto) 0.4 Neutrophils # (Auto) 6.5 Lymphocytes # (Auto) 1.1 Monocytes # (Auto) 0.7 Eosinophils # (Auto) 0.5 Basophils # (Auto) 0.0 CBC Comment AUTO DIFF Differential Comment AUTO DIFF CONFIRMED Platelet Estimate NORMAL Platelet Morphology Comment NORMAL Acanthocytes 1+ Keratocytes 1+ Blood Urea Nitrogen 49 Creatinine 11.05 Random Glucose 85 Albumin 3.0 Calcium Level 9.3 Phosphorus Level 4.6 Magnesium Level 2.4 Sodium Level 135 Potassium Level 4.0 Chloride Level 97 Carbon Dioxide Level 26.7 Anion Gap 11 Estimat Glomerular Filtration Rate 5 Date/Time Source Procedure Growth Status 09/28/17 01:30 Blood Peripheral Aerobic Blood Culture - Preliminary NO GROWTH IN 1 DAY Resulted 3/27/18 01:30 Blood Peripheral Anaerobic Blood Culture - Preliminary NO GROWTH IN 1 DAY Resulted Alirio Brady MD Sep 30, 2017 09:23
[2017-09-30] MEDS ORDERED: LEVA500T33 PO (12:46)
[2017-09-30] MEDS ORDERED: METR-1 PO (12:46)
--- NOTE | 2017-09-30 12:51 | HHI.PR ---
Subjective Remarks Patient says he is feeling well. Sitting up on edge of bed eating breakfast today. Smiling. Denies any chest pain or shortness of breath. Denies any dysuria. Objective Vital Signs Date Time Temp Pulse Resp B/P (MAP) Pulse Ox O2 Delivery O2 Flow Rate FiO2 09/30/17 11:31 97.5 62 18 120/56 (77) 96 09/30/17 08:00 64 09/30/17 07:14 97.6 66 18 165/78 (107) 93 09/30/17 05:12 97.3 71 16 153/71 (98) 97 09/30/17 03:30 78 09/30/17 02:31 97.6 69 16 151/70 (97) 92 09/30/17 00:30 61 09/29/17 21:59 74 09/29/17 21:54 98.2 73 16 161/72 (101) 95 09/29/17 15:01 98.2 57 16 127/60 (82) 95 I/O 09/29/17 09/29/17 09/29/17 09/30/17 09/30/17 09/30/17 07:00 15:00 23:00 07:00 15:00 23:00 Intake Total 480 ml Balance 480 ml Intake Oral 480 ml Result Diagram: 09/30/17 0546 09/30/1746 Objective Remarks GENERAL: sitting up in bed. Appears comfortable. Smiling. Sitting up on edge of bed eating breakfast SKIN: Warm and dry. HEAD: Normocephalic. EYES: No scleral icterus. No injection or drainage. NECK: Supple, trachea midline. No JVD. CARDIOVASCULAR: Regular rate and rhythm without murmurs, gallops, or rubs. RESPIRATORY: Breath sounds equal bilaterally. No accessory muscle use. GASTROINTESTINAL: Abdomen, nondistended. tender to moderate palpation left lower quadrant. No rebound or guarding. MUSCULOSKELETAL: No cyanosis, or edema. BACK: Nontender without obvious deformity. No CVA tenderness. A/P Assessment and Plan //Encephalopathy //Reported history of dementia. = CT head no acute findings. MRI pending. -No meningeal signs. -Neurology following. Appreciate assistance. EEG is pending. //Abdominal pain. //Possible colitis/thyroiditis. //Suspected sigmoid colitis -With left lower quadrant tenderness on exam. CT abdomen with no acute findings = Will start on antibiotics due to abdominal tenderness on exam. = Symptoms improved on treatment. continue on antibiotics to complete treatment course. 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 Follow-up primary care as outpatient. //End-stage renal disease on hemodialysis. -Nephrology consulted. Continue HD //Anemia of renal disease: Stable. //Leukocytosis. = 18. Otherwise without signs and symptoms of sepsis. Off antibiotics. Continue to monitor. Blood cultures pending. = Resolved on antibiotics. //Hypertension. Pressure acceptable with. Hold labetalol and amlodipine due to relative low blood pressure. Continue to monitor. //Diabetes mellitus. Continue diabetic diet and sliding scale. //Reported history of DVT. Uncertain if provoked. Patient also with history of basal ganglia bleed apparently on MRI. Not on chronic anticoagulation Discharge Planning discharge to [facility] Will Glass MD Sep 30, 2017 12:50
--- NOTE | 2017-09-30 12:53 | HHI.DS ---
Discharge Summary Admission Date Sep 28, 2017 at 01:54 Discharge Date: Sep 30, 2017 Admitting Diagnosis AMS, leukocytosis Procedures hd Brief History - From Admission Patient seen this afternoon around 2 PM while in dialysis. A 2-year-old male with ESRD on hemodialysis, hypertension, CVA, DVT, who brought in secondary confusion. Patient says he feels fine. Denies any chest pain, shortness of breath. Says he does not know why he is here. He is disoriented but pleasant. He denies any headache. CBC/BMP: 09/30/17 0546 09/30/17 0546 Significant Findings Laboratory Tests Test 09/27/17 22:10 09/28/17 00:05 09/28/17 11:35 09/28/17 12:45 White Blood Count 18.7 TH/MM3 (4.0-11.0) Red Blood Count 4.07 MIL/MM3 (4.50-5.90) Hemoglobin 9.4 GM/DL (13.0-17.0) Hematocrit 30.0 % (39.0-51.0) Mean Corpuscular Volume 73.6 FL (80.0-100.0) Mean Corpuscular Hemoglobin 23.0 PG (27.0-34.0) Mean Corpuscular Hemoglobin Concent 31.3 % (32.0-36.0) Red Cell Distribution Width 22.9 % (11.6-17.2) Neutrophils (%) (Auto) 85.5 % (16.0-70.0) Lymphocytes (%) (Auto) 6.3 % (9.0-44.0) Neutrophils # (Auto) 16.0 TH/MM3 (1.8-7.7) Monocytes # (Auto) 1.4 TH/MM3 (0-0.9) Toxic Vacuolation PRESENT (NONE SEEN) Ovalocytes 1+ (NORMAL) Acanthocytes 1+ (NORMAL) Blood Urea Nitrogen 45 MG/DL (7-18) Creatinine 10.91 MG/DL (0.60-1.30) Random Glucose 129 MG/DL (74-106) Magnesium Level 2.6 MG/DL (1.5-2.5) Estimat Glomerular Filtration Rate 6 ML/MIN (>89) Iron Level 21 MCG/DL (65-175) Total Iron Binding Capacity 183 MCG/DL (250-450) Percent Iron Saturation 11.5 % (20-50) Ferritin 878 NG/ML (26-388) C-Reactive Protein 19.00 MG/DL (0.00-0.30) Parathyroid Hormone (Intact) 228.7 PG/ML (12.4-76.8) Methylmalonic Acid 0.77 nmol/mL (<=0.40) Test 09/29/17 07:14 09/30/17 05:46 White Blood Count 12.4 TH/MM3 (4.0-11.0) Red Blood Count 4.36 MIL/MM3 (4.50-5.90) 4.09 MIL/MM3 (4.50-5.90) Hemoglobin 9.9 GM/DL (13.0-17.0) 9.3 GM/DL (13.0-17.0) Hematocrit 32.1 % (39.0-51.0) 29.6 % (39.0-51.0) Mean Corpuscular Volume 73.5 FL (80.0-100.0) 72.4 FL (80.0-100.0) Mean Corpuscular Hemoglobin 22.7 PG (27.0-34.0) 22.8 PG (27.0-34.0) Mean Corpuscular Hemoglobin Concent 30.9 % (32.0-36.0) 31.5 % (32.0-36.0) Red Cell Distribution Width 21.6 % (11.6-17.2) 21.1 % (11.6-17.2) Neutrophils (%) (Auto) 78.6 % (16.0-70.0) 73.3 % (16.0-70.0) Neutrophils # (Auto) 9.7 TH/MM3 (1.8-7.7) Monocytes # (Auto) 1.0 TH/MM3 (0-0.9) Ovalocytes 1+ (NORMAL) Acanthocytes 1+ (NORMAL) 1+ (NORMAL) Erythrocyte Sedimentation Rate 52 mm/hr (0-20) Blood Urea Nitrogen 39 MG/DL (7-18) 49 MG/DL (7-18) Creatinine 9.10 MG/DL (0.60-1.30) 11.05 MG/DL (0.60-1.30) Albumin 3.3 GM/DL (3.4-5.0) 3.0 GM/DL (3.4-5.0) Alkaline Phosphatase 136 U/L (45-117) Aspartate Amino Transf (AST/SGOT) 13 U/L (15-37) Estimat Glomerular Filtration Rate 7 ML/MIN (>89) 5 ML/MIN (>89) Monocytes (%) (Auto) 8.2 % (0.0-8.0) Eosinophils (%) (Auto) 5.6 % (0.0-4.0) Eosinophils # (Auto) 0.5 TH/MM3 (0-0.4) Keratocytes 1+ (NORMAL) Sodium Level 135 MEQ/L (136-145) Chloride Level 97 MEQ/L (98-107) Imaging Last Impressions Abdomen/Pelvis CT 09/29/17 0000 Signed Impressions: Service Date/Time: Friday, September 29, 2017 22:21 - CONCLUSION: 1. Colonic diverticula in the left-sided colon. Significant surrounding inflammatory change is not seen. 2. Cardiomegaly with increased interstitial markings which could represent edema. 3. Small kidneys bilaterally likely related to chronic medical renal disease. There are bilateral renal masses likely related to cysts although these are nonspecific on this noncontrast CT examination. 4. Atherosclerotic calcification seen throughout. There is aneurysmal dilatation of the common iliac arteries bilaterally. Eduardo Plunkett MD Brain MRI 09/28/17 0000 Signed Impressions: Service Date/Time: Thursday, September 28, 2017 19:07 - CONCLUSION: 1. No acute abnormality seen. 2. Evidence of prior hemorrhage in the left basal ganglia and frontoparietal white matter. 3. Atrophy. 4. Suspected small vessel ischemic change in the cerebral and pontine white matter. Eduardo Plunkett MD Abdomen X-Ray 09/28/17 0000 Signed Impressions: Service Date/Time: Thursday, September 28, 2017 18:30 - CONCLUSION: The patient is clear for MRI examination. Eduardo Plunkett MD Head CT 09/27/177 Signed Impressions: Service Date/Time: Wednesday, September 27, 2017 23:22 - CONCLUSION: 1. Encephalomalacia left basal brain likely old infarct. 2. Cerebral atrophy without acute intracranial abnormality. Kevin Bradford MD Chest X-Ray 09/27/[id number] Signed Impressions: Service Date/Time: Wednesday, September 27, 2017 22:37 - CONCLUSION: 1. Cardiomegaly. Chronic interstitial changes in the lungs, possibly pulmonary fibrosis. No effusion. Dual-lumen left-sided catheter tip in right atrium. Inocente Thompson MD Hospital Course //Encephalopathy //Reported history of dementia. = CT head no acute findings. MRI pending. -No meningeal signs. -Neurology following. Appreciate assistance. EEG is pending. //Abdominal pain. //Possible colitis/thyroiditis. //Suspected sigmoid colitis -With left lower quadrant tenderness on exam. CT abdomen with no acute findings = Will start on antibiotics due to abdominal tenderness on exam. = Symptoms improved on treatment. continue on antibiotics to complete treatment course. 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 Follow-up primary care as outpatient. //End-stage renal disease on hemodialysis. -Nephrology consulted. Continue HD //Anemia of renal disease: Stable. //Leukocytosis. = 18. Otherwise without signs and symptoms of sepsis. Off antibiotics. Continue to monitor. Blood cultures pending. = Resolved on antibiotics. //Hypertension. Pressure acceptable with. Hold labetalol and amlodipine due to relative low blood pressure. Continue to monitor. //Diabetes mellitus. Continue diabetic diet and sliding scale. //Reported history of DVT. Uncertain if provoked. Patient also with history of basal ganglia bleed apparently on MRI. Not on chronic anticoagulation Discharge Planning discharge to SNF Pt Condition on Discharge: Good Discharge Disposition: Discharge to SNF Discharge Time: > 30 minutes Discharge Instructions DIET: Follow Instructions for: As Tolerated, No Restrictions Activities you can perform: Regular-No Restrictions Follow up Referrals: Nephrology - Daily Neurology - 1 Week with Alirio Brady MD New Medications: Levofloxacin (Levaquin) 500 Mg Tablet 500 MG PO Q48H for Infection for 10 Days, TAB Metronidazole (Flagyl) 500 Mg Tab 500 MG PO Q8HR for Infection for 10 Days, TAB Continued Medications: Acetaminophen (Mapap) 500 Mg Cap 500 MG PO TID, CAP 0 Refills Albuterol 6.7 GM Inh (Proventil Hfa 6.7 GM Inh) 90 Mcg/Act Aer 1 PUFF INH QID PRN for SOB/WHEEZING, #1 INHALER 0 Refills Albuterol Neb (Albuterol Neb) 0.63 Mg/3 Ml Neb 0.63 MG NEB QID NEB PRN for SHORTNESS OF BREATH, #125 NEBULE 0 Refills Allopurinol (Allopurinol) 100 Mg Tab 100 MG PO DAILY for Gout, #30 TAB 0 Refills Amlodipine (Amlodipine) 10 Mg Tab 10 MG PO DAILY for Blood Pressure Management, #30 TAB [address] (Aspirin 81) 81 Mg Tabdr 81 MG PO DAILY, TAB 0 Refills Atorvastatin (Atorvastatin) 40 Mg Tab 40 MG PO HS for Cholesterol Management, #30 TAB 0 Refills B-Complex W/ C & Folic Acid (Nephro-Micah) 1 Tab 1 TAB PO DAILY for Nutritional Supplement, #30 TAB 0 Refills Docusate Sodium (Docusate Sodium) 100 Mg Tab 200 MG PO DAILY, TAB Ergocalciferol (Vitamin D2) 2,000 Unit Tab 89041 UNITS PO WEDNESDAY for Nutritional Supplement, TAB 0 Refills Ferrous Sulfate (Ferrous Sulfate) 325 Mg (65 Mg Iron) Tablet 325 MG PO DAILY for Nutritional Supplement, #30 TAB 0 Refills Fluticasone Nasal [place] (Fluticasone Nasal [place]) 50 Mcg/Act Naspr 50 MCG EACH NARE DAILY for Allergy Management, #1 BOTTLE 0 Refills 50 mcg/spray Furosemide (Furosemide) 40 Mg Tab 40 MG PO DAILY, #30 TAB 0 Refills Gabapentin (Gabapentin) 100 Mg Cap 100 MG PO TID, #90 CAP 0 Refills Labetalol (Labetalol) 200 Mg Tab 200 MG PO Q8H, #90 TAB 1 Refill Lactulose (Lactulose) 10 Gram/15 Ml (15 Ml) Solution 15 ML PO BID Sevelamer Carbonate (Renvela) 800 Mg Tab 800 MG PO TIDAC for Control phosphorous levels, #90 TAB 0 Refills Tramadol (Tramadol) 50 Mg Tab 50 MG PO BID PRN for PAIN, TAB 0 Refills Will Glass MD Sep 30, 2017 12:53
[2017-10-01] MEDS ORDERED: LEVOFLOXACIN 500 MG TAB PO SCH (09:00)
== END 2017-09-30 22:20 | disposition home or self-care (01) ==
LOC: NEPE 21:53 → NEDA 09-28 00:42 → UNDOADMIN 09-28 00:42 → NEDA 09-28 01:54 → INTOOBSV 09-28 01:54 → NEDH 09-28 05:56 → NEPGCP 09-28 11:52
PROVIDERS: ADMIT Internal Medicine; ATTEND Internal Medicine
DX: G92 Toxic encephalopathy (principal); F03.90 Unspecified dementia, unspecified severity, without behavioral disturbance, psychotic disturbance, mood disturbance, and anxiety; I13.2 Hypertensive heart and chronic kidney disease with heart failure and with stage 5 chronic kidney disease, or end stage renal disease; I50.9 Heart failure, unspecified; E11.22 Type 2 diabetes mellitus with diabetic chronic kidney disease; N18.6 End stage renal disease; D63.1 Anemia in chronic kidney disease; E11.51 Type 2 diabetes mellitus with diabetic peripheral angiopathy without gangrene; D72.829 Elevated white blood cell count, unspecified; R94.31 Abnormal electrocardiogram [ECG] [EKG]; I45.9 Conduction disorder, unspecified; I72.3 Aneurysm of iliac artery; G93.89 Other specified disorders of brain; E78.00 Pure hypercholesterolemia, unspecified; J44.9 Chronic obstructive pulmonary disease, unspecified; K21.9 Gastro-esophageal reflux disease without esophagitis; F41.9 Anxiety disorder, unspecified; F32.9 Major depressive disorder, single episode, unspecified; Z86.73 Personal history of transient ischemic attack (TIA), and cerebral infarction without residual deficits; Z79.899 Other long term (current) drug therapy; Z99.2 Dependence on renal dialysis; Z86.718 Personal history of other venous thrombosis and embolism; Z79.82 Long term (current) use of aspirin; Z85.46 Personal history of malignant neoplasm of prostate
CPT/HCPCS: 70450; 70551; 71045; 74018; 74176; 80048; 80053; 80069; 80307; 82140; 82607; 82728; 82948; 83540; 83550; 83605; 83690; 83735; 83921; 83970; 84100; 85025; 85610; 85652; 85730; 86140; 86592; 87040; 93005; 95819; 96365; 96368; 96372; 96374; 99285; G0257; G0378; J1580; J1644; J2543; J3370; J7050; Q9963; 90935

== ENCOUNTER → 2017-11-03 | Day surgery (SDC) | payer MEDICARE ==
[~2017-11-03] VITALS: Ht 170.2 cm; Wt 74.7 kg
[~2017-11-03] MED LIST changes: -ALBU6.7H INH; +BUPIVACAINE HCL PF 0.5% 30 ML VIAL ONE; +CHLORHEXIDINE GLUCONATE 2 % 1 PACK (2 CLOTHS) TOPICAL PRN; +DO NOT ADM ANY ANTICOAGULANT DRUGS PRN; +FAMOTIDINE 20 MG/2 ML VIAL ONE; +HEPARIN SODIUM - IV 10,000 UNITS/10 ML VIAL ONE; +HEPARIN-NS/PF INJ 500 ML ONE; +LACT10SO5 PO; +LACTATED RINGER'S 1000 ML IV PRN; +LIDOCAINE HCL 1% PF 5 ML SYRINGE OTHER ONE; +METOPROLOL TARTRATE 25 MG TAB PO PRN; +ONDANSETRON HCL 4 MG/2 ML VIAL IV ONE; +POVIDONE IODINE 5% (ANTISEPSIS KIT) 4 APPLICATIONS EACH NARE PRN; +PROPOFOL 200 MG/20 ML AMP IV ONE; +PROTAMINE SULFATE 50 MG/5 ML VIAL ONE; +RENATAB5 PO; +SODIUM CHLOR 0.9% 250 ML INJ 250 ML IV ONE; +SODIUM CHLOR 0.9% 250 ML INJ 250 ML ONE; +SODIUM CHLORID 0.9% 500 ML IV PRN; +THROMBIN (TOPICAL) 20,000 UNIT SPRAY KIT ONE; +VANCOMYCIN HCL 1000 MG VIAL ONE; +VENTAER INH; +VITA500012 PO
--- NOTE | 2017-11-03 07:34 | PD.VS.PN ---
Pre-operative Note Pre-operative diagnosis: ESRD, need for HD access Planned procedure: R UE access (6mm PTFE) Interval History: Pt denies recent fevers, chills or other history that would preclude OR. Labs: pending Blood: none needed Orders: NPO Vanc 1g IV OCTOR Post-operative destination: PACU Operative site marked: Yes Consent: Informed consent has been obtained from Victor Manuel Root. I have explained the procedure in detail and discussed the risks, benefits, and potential complications. All questions have been answered. Patient contact information: usp [phone] Agustín Bustos MD November 03, 2017 07:34
[2017-11-03 07:46] LABS: AUTOMATED NEUTROPHIL # 5.2 TH/MM3 (1.8-7.7); BASOPHIL # 0.1 TH/MM3 (0-0.2); BASOPHIL % 1.2 % (0.0-2.0); EOSINOPHIL # 0.4 TH/MM3 (0-0.4); EOSINOPHIL % 5.4 % (0.0-4.0); HEMATOCRIT 39.3 % (39.0-51.0); HEMOGLOBIN 11.9 GM/DL (13.0-17.0); LYMPH % 16.2 % (9.0-44.0); LYMPHOCYTE # 1.2 TH/MM3 (1.0-4.8); MEAN CORPUSCULAR HEMOGLOBIN 22.7 PG (27.0-34.0); MEAN CORPUSCULAR HGB CONC 30.3 % (32.0-36.0); MEAN PLATELET VOLUME 8.2 FL (7.0-11.0); MONO % 7.9 % (0.0-8.0); MONOCYTE # 0.6 TH/MM3 (0-0.9); NEUT % 69.3 % (16.0-70.0); PLATELET COUNT 251 TH/MM3 (150-450); RED BLOOD COUNT 5.24 MIL/MM3 (4.50-5.90); RED CELL DISTRIBUTION WIDTH 23.3 % (11.6-17.2); WHITE BLOOD COUNT 7.6 TH/MM3 (4.0-11.0)
[2017-11-03 08:00] LABS: BICARBONATE 19.9 MEQ/L (21.0-32.0); CALCIUM 9.7 MG/DL (8.5-10.1); CREATININE 9.22 MG/DL (0.60-1.30)
--- NOTE | 2017-11-03 09:41 | HHI.PR ---
cc: Agustín Bustos MD Immediate Post Op Note Procedure Date: November 03, 2017 Pre Op Diagnosis: ESRD, need for HD access Post Op Diagnosis: ESRD, need for HD access Surgeon: Agustín Bustos Trade Economist(s): Savanna Zavala Procedure: R ax-ax loop with 6mm PTFE Findings: 5mm axillary artery 5mm axillary vein + thrill at conclusion of case + palpable radial pulse Complications: none Specimen(s) removed: none Estimated blood loss: 30mL Anesthesia: LMA Drains: None Fluids: 500mL IVF Patient to: PACU Patient Condition: Good Implant/Devices: SEE IMPLANT LOG (if applicable) Date/Time of Procedure: SEE SURGICAL CARE RECORD Agustín Bustos MD November 03, 2017 09:41
--- NOTE | 2017-11-03 10:07 | MP ---
cc: Agustín Bustos MD DATE OF OPERATION: 11/03/2017 PREOPERATIVE DIAGNOSES: End-stage renal disease. Need for dialysis access. POSTOPERATIVE DIAGNOSES: End-stage renal disease. Need for dialysis access. PROCEDURE PERFORMED: Right upper extremity axillary artery to axillary vein arteriovenous loop. OPERATING SURGEON: Agustín Bustos MD FLAT SCREEN WORKER SURGEON: Savanna Zavala. ANESTHESIA: General. INDICATIONS: Mr. Root is an 82-year-old gentleman with end-stage renal disease with a failed upper extremity access. He has no autogenous options and is taken to the operating room for a right upper extremity prosthetic access. DESCRIPTION OF PROCEDURE: Informed consent was obtained from the patient. He was taken to the operating room and placed supine on the operating table. An appropriate timeout was taken to ensure the patient's identity, the operative site and planned procedure. The administration of 1 gram of vancomycin was initiated prior to skin incision and will be discontinued after a single preoperative dose. Vancomycin was chosen because of the patient's end-stage renal disease. Everyone in the room agreed with the timeout and we proceeded. His right arm was prepped and draped. Incision was made in the axilla, carried down to subcutaneous tissue with electrocautery. The axillary artery and vein were identified and encircled with vessel loops. A counter-incision was made over the antecubitum and a tunnel was created between these 2 and then along the medial aspect of the upper arm for the arterial outflow in a curvilinear fashion along the anterior aspect of the upper arm for the venous outflow. A 6 mm PTFE was passed through the tunnel, taking caution not to twist it, and the patient was systemically heparinized with 3000 units of IV heparin. Proximal and distal control of the axillary was obtained with profunda clamps and a longitudinal arteriotomy was made with an 11 blade, extended with [place] scissors. The graft was spatulated and sewn end-to-side with running 5-0 Prolene suture. At completion, it was flushed, noted to be hemostatic. A Adriana Softjaw was placed on the graft and the clamps were released. The vein was controlled proximally and distally with profunda clamps and a longitudinal venotomy was made with an 11 blade, extended with [place] scissors. The vein was spatulated after being cut to an appropriate length and sewn end-to-side to the axillary vein with running 5-0 Prolene suture. At the completion it was flushed, noted to be hemostatic. Clamps were all released. There was a nice thrill in the fistula and a palpable pulse in the wrist. The heparin was reversed with protamine. The wound was infiltrated with Marcaine, irrigated and made hemostatic, closed with #2-0 Polysorb, 3-0 Polysorb and 4-0 Monocryl. The counter-incision was closed with 3-0 Polysorb and 4-0 Monocryl. Sponge and needle counts were correct at the end of the case. I was present and scrubbed and performed the entire procedure. MD MICHELLE Layne/SAMANTHA , 09:44 AM , 10:06 AM
[2017-11-03 11:27] VITALS: BP 103/48; PULSE 61; RESP 18; TEMP 97.3; O2SAT 96
== END | disposition home or self-care (01) ==
LOC: HCVO 06:44
PROVIDERS: ATTEND Surgery
DX: N18.6 End stage renal disease (principal); I12.0 Hypertensive chronic kidney disease with stage 5 chronic kidney disease or end stage renal disease; J44.9 Chronic obstructive pulmonary disease, unspecified; Z99.2 Dependence on renal dialysis; Z79.82 Long term (current) use of aspirin
CPT/HCPCS: 01844; 36830; 80048; 85025; 86850; 86900; 86901; C1768; J1644; J2405; J2720; J3010; J3370; J7040; J7050

== ENCOUNTER 2017-11-10 14:44 | Inpatient (IN) | payer MEDICARE ==
[~2017-11-10] VITALS: Ht 170.2 cm; Wt 78.5 kg
[~2017-11-10 14:44] MED LIST changes: -BUPIVACAINE HCL PF 0.5% 30 ML VIAL ONE; -CHLORHEXIDINE GLUCONATE 2 % 1 PACK (2 CLOTHS) TOPICAL PRN; -DO NOT ADM ANY ANTICOAGULANT DRUGS PRN; -FAMOTIDINE 20 MG/2 ML VIAL ONE; -HEPARIN SODIUM - IV 10,000 UNITS/10 ML VIAL ONE; -HEPARIN-NS/PF INJ 500 ML ONE; -LACTATED RINGER'S 1000 ML IV PRN; -LIDOCAINE HCL 1% PF 5 ML SYRINGE OTHER ONE; -METOPROLOL TARTRATE 25 MG TAB PO PRN; -ONDANSETRON HCL 4 MG/2 ML VIAL IV ONE; -POVIDONE IODINE 5% (ANTISEPSIS KIT) 4 APPLICATIONS EACH NARE PRN; -PROPOFOL 200 MG/20 ML AMP IV ONE; -PROTAMINE SULFATE 50 MG/5 ML VIAL ONE; -SODIUM CHLOR 0.9% 250 ML INJ 250 ML IV ONE; -SODIUM CHLOR 0.9% 250 ML INJ 250 ML ONE; -SODIUM CHLORID 0.9% 500 ML IV PRN; -THROMBIN (TOPICAL) 20,000 UNIT SPRAY KIT ONE; -VANCOMYCIN HCL 1000 MG VIAL ONE
[2017-11-10 14:52] VITALS: BP 108/55; PULSE 70; RESP 20; TEMP 97.7; O2SAT 100
--- NOTE | 2017-11-10 15:45 | PD ---
HPI Chief Complaint: Musculoskeletal Complaint Time Seen by Provider: 15:06 Travel History International Travel<30 days: No Contact w/Intl Traveler<30days: No Traveled to known affect area: No History of Present Illness HPI 82-year-old male complains of pain and swelling of the right arm. Patient states that the symptoms started recently however unable to pinpoint to me how long the symptom has been there. Patient states that the pain is burning pain localized to the right arm. Patient denies any pain radiation. Patient denies any fever chills. Patient denies any injury to the right arm. Patient was seen by personal physician and had outpatient ultrasound done of the right extremity yesterday. Ultrasound was reported as negative for DVT right upper extremity. Subcutaneous edema. Patient was advised by physician go to ED for evaluation. Patient has history of diabetes, peripheral vascular disease, chronic kidney disease, end-stage renal disease on dialysis. patient has dialysis Wednesday and Wednesday. Patient also has history of anemia of chronic disease, hyperlipidemia, hypertension, paralytic syndrome. Patient has AV fistula established right upper arm recently. Patient is dialyzed Through permacath in the left chest. 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 Arciniega [facility] Past Medical History Hx Anticoagulant Therapy: Yes (aspirin 81MG ) Anemia: Yes Blood Disorders: Yes (hemorrhage of RUE fistula ) Anxiety: Yes Depression: Yes Cancer: Yes (prostate CA) Cardiovascular Problems: Yes (PVD; Anemia; HTN) High Cholesterol: Yes Congestive Heart Failure: Yes COPD: Yes Dementia: Yes Diabetes: Yes Patient Takes Glucophage: No Dialysis: Yes (via L vascath T/R/Sat) Diminished Hearing: No Endocrine: Yes Gastrointestinal Disorders: Yes (HX OF GERD, CONSTIPATION) GERD: Yes Gout: Yes Genitourinary: Yes (ESRD) Hiatal Hernia: Yes Hypertension: Yes Immune Disorder: No Implanted Vascular Access Dvce: No Medical other: Yes (ANEMIA, PVD, HYPERLIPIDEMIA) Musculoskeletal: No Neurologic: Yes (PRIORCVA) Psychiatric: Yes Reproductive: No Respiratory: Yes Renal Failure: Yes Past Surgical History Abdominal Surgery: Yes (has a scar along the R side of abdomen) Arteriovenous Shunt: Yes (RUE-no bruitt or thrill noted; L SubC VASCATH) Tonsillectomy: Yes Other Surgery: Yes (PROSTATE CA WITH SEEDS IMPLANT, r upper arm fistula) Social History Alcohol Use: No Tobacco Use: No Substance Use: No Allergies-Medications (Allergen,Severity, Reaction): Coded Allergies: No Known Allergies (Verified Allergy, Unknown, 11/10/17) Reported Meds & Prescriptions Reported Meds & Active Scripts Active Labetalol (Labetalol HCl) 200 Mg Tab 200 Mg PO Q8H Reported Ergocalciferol 50,000 Unit Cap 50,000 Units PO Q7D Ventolin Hfa 18 GM Inh (Albuterol Sulfate) 90 Mcg/Act Aer 1 Puff INH Q6HR PRN Padmini-Micah (B-Complex W/ C & Folic Acid) 1 Tab 1 Tab PO DAILY Lactulose 10 Gram/15 Ml (15 Ml) Solution 15 Ml PO BID Tramadol (Tramadol HCl) 50 Mg Tab 50 Mg PO BID PRN Gabapentin 100 Mg Cap 100 Mg PO TID Furosemide 40 Mg Tab 40 Mg PO DAILY Docusate Sodium 100 Mg Tab 200 Mg PO DAILY Atorvastatin (Atorvastatin Calcium) 40 Mg Tab 40 Mg PO HS Amlodipine (Amlodipine Besylate) 10 Mg Tab 10 Mg PO DAILY Mapap (Acetaminophen) 500 Mg Cap 500 Mg PO TID Fluticasone Nasal [place] 50 Mcg/Act Naspr 50 Mcg EACH NARE DAILY 50 mcg/spray Renvela (Sevelamer Carbonate) 800 Mg Tab 800 Mg PO TIDAC Ferrous Sulfate 325 Mg (65 Mg Iron) Tablet 325 Mg PO DAILY Aspirin 81 (Aspirin) 81 Mg Tabdr 81 Mg PO DAILY Allopurinol 100 Mg Tab 100 Mg PO DAILY Review of Systems General / Constitutional: No: Fever Eyes: No: Visual changes HENT: No: Headaches Cardiovascular: No: Chest Pain or Discomfort Respiratory: No: Shortness of Breath Gastrointestinal: No: Abdominal Pain Genitourinary: No: Dysuria Musculoskeletal: Positive: Edema, Pain Skin: No Rash Neurologic: No: Weakness Psychiatric: No: Depression Endocrine: No: Polydipsia Hematologic/Lymphatic: No: Easy Bruising Physical Exam Narrative GENERAL: Well-nourished, well-developed patient. SKIN: Focused skin assessment warm/dry. HEAD: Normocephalic. EYES: No scleral icterus. No injection or drainage. NECK: Supple, trachea midline. No JVD or lymphadenopathy. CARDIOVASCULAR: Regular rate and rhythm without murmurs, gallops, or rubs. RESPIRATORY: Breath sounds equal bilaterally. No accessory muscle use. GASTROINTESTINAL: Abdomen soft, non-tender, nondistended. MUSCULOSKELETAL: No cyanosis, or edema. BACK: Nontender without obvious deformity. No CVA tenderness. Patient has soft tissue swelling redness tenderness diffuse over the right arm, especially on the right upper arm anteriorly no induration. Limited range of motion of the right arm secondary to pain. Data Data Last Documented VS Vital Signs Date Time Temp Pulse Resp B/P (MAP) Pulse Ox O2 Delivery O2 Flow Rate FiO2 11/10/17 16:35 96 Room Air 11/10/17 14:52 97.7 70 20 108/55 (72) Orders Orders Complete Blood Count With Diff (11/10/17 15:25) Comprehensive Metabolic Panel (11/10/17 15:25) Prothrombin Time / Inr (Pt) (11/10/17 15:25) Act Partial Throm Time (Ptt) (11/10/17 15:25) Blood Culture (11/10/17 15:25) Magnesium (Mg) (11/10/17 15:25) Phosphorus (Po4) (11/10/17 15:25) Chest, Single Ap (11/10/17 15:25) Iv Access Insert/Monitor (11/10/17 15:25) Ecg Monitoring (11/10/17 15:25) Oximetry (11/10/17 15:25) Labs Laboratory Tests Test 11/10/17 15:45 White Blood Count 6.9 TH/MM3 Red Blood Count 5.14 MIL/MM3 Hemoglobin 11.5 GM/DL Hematocrit 38.0 % Mean Corpuscular Volume 73.9 FL Mean Corpuscular Hemoglobin 22.5 PG Mean Corpuscular Hemoglobin Concent 30.4 % Red Cell Distribution Width 23.0 % Platelet Count 222 TH/MM3 Mean Platelet Volume 7.3 FL Neutrophils (%) (Auto) 59.8 % Lymphocytes (%) (Auto) 20.6 % Monocytes (%) (Auto) 13.3 % Eosinophils (%) (Auto) 5.8 % Basophils (%) (Auto) 0.5 % Neutrophils # (Auto) 4.2 TH/MM3 Lymphocytes # (Auto) 1.4 TH/MM3 Monocytes # (Auto) 0.9 TH/MM3 Eosinophils # (Auto) 0.4 TH/MM3 Basophils # (Auto) 0.0 TH/MM3 CBC Comment DIFF FINAL Differential Comment Prothrombin Time 10.7 SEC Prothromb Time International Ratio 1.1 RATIO Activated Partial Thromboplast Time 28.9 SEC Blood Urea Nitrogen 45 MG/DL Creatinine 9.57 MG/DL Random Glucose 108 MG/DL Total Protein 7.8 GM/DL Albumin 3.3 GM/DL Calcium Level 9.5 MG/DL Phosphorus Level 4.6 MG/DL Magnesium Level 2.4 MG/DL Alkaline Phosphatase 115 U/L Aspartate Amino Transf (AST/SGOT) 20 U/L Alanine Aminotransferase (ALT/SGPT) 20 U/L Total Bilirubin 0.4 MG/DL Sodium Level 138 MEQ/L Potassium Level 4.9 MEQ/L Chloride Level 102 MEQ/L Carbon Dioxide Level 24.5 MEQ/L Anion Gap 12 MEQ/L Estimat Glomerular Filtration Rate 6 ML/MIN MDM Medical Decision Making Medical Screen Exam Complete: Yes Emergency Medical Condition: Yes Interpretation(s) 1725 PM. Last Impressions Chest X-Ray 11/10/17 1525 Signed Impressions: Service Date/Time: Friday, November 10, 2017 15:28 - CONCLUSION: Mild compensated cardiomegaly with Brandon Sam MD FACR 1725 PM. CBC WBC 6.9. Hemoglobin 11.5 hematocrit 38.0. MCV 73.9. Normal differential. CMP with BUN 45. Creatinine 9.57. Differential Diagnosis Differential diagnosis including cellulitis, abscess, lymphedema, DVT. Narrative Course 82-year-old male with right arm redness swelling tenderness. Patient has history of end-stage renal disease on dialysis. Patient is dialyzes on PermCath now. Diagnosis Primary Impression: Right arm cellulitis Admitting Information Admitting Physician Requests: Admit Wade Hansen MD November 10, 2017 15:45
--- NOTE | 2017-11-10 16:15 | RADRPT ---
EXAM DATE/TIME: 11/10/2017 15:28 [facility] COMPARISON: CHEST SINGLE AP, September 27, 2017, 22:37. INDICATIONS : Shortness of breath. MEDICAL HISTORY : Hypertension. Renal failure, acute. Diabetes. SURGICAL HISTORY : Right arm AV fistula. Left sided dialysis catheter. ENCOUNTER: Initial ACUITY: 1 day PAIN SCORE: 0/10 LOCATION: chest FINDINGS: A single view of the chest demonstrates the lungs to be symmetrically aerated without evidence of mas s, infiltrate or effusion. Dialysis catheter on the left. Vascular stent on the right. Mild compen sated cardiomegaly. CONCLUSION: Mild compensated cardiomegaly with Brandon Sam MD FACR on November 10, 2017 at 16:12 Board Certified Radiologist. This report was verified electronically.
[2017-11-10 16:35] VITALS: O2SAT 96
[2017-11-10 16:45] LABS: AUTOMATED NEUTROPHIL # 4.2 TH/MM3 (1.8-7.7); BASOPHIL % 0.5 % (0.0-2.0); EOSINOPHIL # 0.4 TH/MM3 (0-0.4); EOSINOPHIL % 5.8 % (0.0-4.0); HEMOGLOBIN 11.5 GM/DL (13.0-17.0); LYMPH % 20.6 % (9.0-44.0); LYMPHOCYTE # 1.4 TH/MM3 (1.0-4.8); MEAN CELL VOLUME 73.9 FL (80.0-100.0); MEAN CORPUSCULAR HEMOGLOBIN 22.5 PG (27.0-34.0); MEAN CORPUSCULAR HGB CONC 30.4 % (32.0-36.0); MEAN PLATELET VOLUME 7.3 FL (7.0-11.0); MONO % 13.3 % (0.0-8.0); MONOCYTE # 0.9 TH/MM3 (0-0.9); NEUT % 59.8 % (16.0-70.0); PLATELET COUNT 222 TH/MM3 (150-450); RED BLOOD COUNT 5.14 MIL/MM3 (4.50-5.90); WHITE BLOOD COUNT 6.9 TH/MM3 (4.0-11.0)
[2017-11-10 16:56] LABS: INTERNATIONAL NORMALIZED RATIO 1.1 RATIO; PROTHROMBIN TIME - PATIENT 10.7 SEC (9.8-11.6)
[2017-11-10 17:04] LABS: ALKALINE PHOSPHATASE 115 U/L (45-117); TOTAL BILIRUBIN ADULT 0.4 MG/DL (0.2-1.0); TOTAL PROTEIN 7.8 GM/DL (6.4-8.2)
[2017-11-10 17:08] LABS: ALBUMIN 3.3 GM/DL (3.4-5.0); ALT (GPT) 20 U/L (12-78); AST (GOT) 20 U/L (15-37); BICARBONATE 24.5 MEQ/L (21.0-32.0); BLOOD UREA NITROGEN 45 MG/DL (7-18); CALCIUM 9.5 MG/DL (8.5-10.1); CHLORIDE 102 MEQ/L (98-107); CREATININE 9.57 MG/DL (0.60-1.30); GLOMERULAR FILTRATION RATE 6 ML/MIN (>89); GLUCOSE,RANDOM 108 MG/DL (74-106); MAGNESIUM 2.4 MG/DL (1.5-2.5); PHOSPHORUS 4.6 MG/DL (2.5-4.9); SODIUM (NA) 138 MEQ/L (136-145)
[2017-11-10] MEDS ORDERED: VANCOMYCIN INJ 1,000 MG in SODIUM CHLOR 0.9% 250 ML INJ 250 ML IV ONE (18:15)
[2017-11-10] MEDS ORDERED: Vancomycin Consult Pharmacy 1 EA OTHER SCH (18:30)
[2017-11-10] MEDS ORDERED: traMADol HCL 50 MG TAB PO PRN (18:30)
[2017-11-10] MEDS: HEPARIN SODIUM - SQ 10,000 UNITS/ML VIAL SQ SCH (18:30)
[2017-11-10] MEDS ORDERED: SODIUM CHLORIDE 0.9% FLUSH 10 ML FLUSH IV FLUSH PRN (18:30)
--- NOTE | 2017-11-10 18:38 | HHI.HP ---
[facility] Service [facility] Primary Care Physician Jacinto Chakraborty M.D. Admission Diagnosis Right arm cellulitis. End-stage renal disease on dialysis. Diagnoses: Chief Complaint: Right arm cellulitis, swelling and pain Travel History International Travel<30 Days: No Contact w/Intl Traveler <30 Da: No Traveled to Known Affected Are: No History of Present Illness Written by Lesli Marmolejo, acting as scribe for Dr. Orta on 11/10/17 at 18:14. Patient is an 82-year-old male with primary medical history of end-stage renal disease on hemodialysis, peripheral vascular disease, DM, HTN, HLD, GERD, history of DVT who initially came to the hospital for complaints of right upper extremity swelling and pain with decreased range of motion. Patient recently admitted to the hospital for vascular procedure. Patient underwent right upper extremity axillary artery to axillary vein arteriovenous loop, 11/03/[address] Bustos. States that last week he noticed increased swelling and redness of his right upper extremity. Complains of numbness on the right lower arm. Complaints of pain, 8/10, radiating towards the arm, does not know what aggravates or relieves the symptom that is why he states he came into the hospital. Otherwise, he denies fevers, chills, nausea, vomiting, diarrhea. He denies any shortness of breath or dyspnea, cough. Denies any chest pain, palpitations, headaches, dizziness. States he is currently on hemodialysis but forgets his doctor's name. He goes every Wednesday, , Wednesday being picked up by a bus to go to hemodialysis center. Patient seen by PCP and outpatient ultrasound has ultrasound done yesterday. Ultrasound was reported as negative for DVT right upper extremity. Review of Systems ROS Limitations: Poor Historian Except as stated in HPI: all other systems reviewed are Neg Past Family Social History Past Medical History End-stage renal disease on hemodialysis Peripheral vascular disease Diabetes mellitus Hyperlipidemia Hypertension GERD History of DVT History of CVA COPD CHF Past Surgical History AV fistula placement for dialysis 2013 Surgical control bleeding from AV fistula July 2017 Reported Medications Reported Meds & Active Scripts Active Labetalol (Labetalol HCl) 200 Mg Tab 200 Mg PO Q8H Reported Ergocalciferol 50,000 Unit Cap 50,000 Units PO Q7D Ventolin Hfa 18 GM Inh (Albuterol Sulfate) 90 Mcg/Act Aer 1 Puff INH Q6HR PRN Padmini-Micah (B-Complex W/ C & Folic Acid) 1 Tab 1 Tab PO DAILY Lactulose 10 Gram/15 Ml (15 Ml) Solution 15 Ml PO BID Tramadol (Tramadol HCl) 50 Mg Tab 50 Mg PO BID PRN Gabapentin 100 Mg Cap 100 Mg PO TID Furosemide 40 Mg Tab 40 Mg PO DAILY Docusate Sodium 100 Mg Tab 200 Mg PO DAILY Atorvastatin (Atorvastatin Calcium) 40 Mg Tab 40 Mg PO HS Amlodipine (Amlodipine Besylate) 10 Mg Tab 10 Mg PO DAILY Mapap (Acetaminophen) 500 Mg Cap 500 Mg PO TID Fluticasone Nasal [facility] 50 Mcg/Act Naspr 50 Mcg EACH NARE DAILY 50 mcg/spray Renvela (Sevelamer Carbonate) 800 Mg Tab 800 Mg PO TIDAC Ferrous Sulfate 325 Mg (65 Mg Iron) Tablet 325 Mg PO DAILY Aspirin 81 (Aspirin) 81 Mg Tabdr 81 Mg PO DAILY Allopurinol 100 Mg Tab 100 Mg PO DAILY Allergies: Coded Allergies: No Known Allergies (Verified Allergy, Unknown, 11/10/17) Active Ordered Medications Current Medications Medications (Trade) Dose Ordered Sig/Marisol Route Start Time Stop Time Status Last Admin Vancomycin HCl 1000 mg/Sodium Chloride 250 ml @ 250 mls/hr ONCE ONCE IV 11/10/17 18:15 11/10/17 19:14 Family History Patient denies any significant family medical history. Social History Denies alcohol use Denies tobacco use Denies illicit drug Physical Exam Vital Signs Vital Signs Date Time Temp Pulse Resp B/P (MAP) Pulse Ox O2 Delivery O2 Flow Rate FiO2 11/10/17 16:35 96 Room Air 11/10/17 14:52 97.7 70 20 108/55 (72) 100 Physical Exam GENERAL: This is a well-nourished, well-developed patient, in no apparent distress. SKIN: Cool and dry. HEAD: Normocephalic. EYES: Pupils equal round and reactive. Extraocular motions intact. No scleral icterus. No injection or drainage. ENT: Nose without bleeding. Throat without erythema. Uvula midline. Airway patent. NECK: Trachea midline. CARDIOVASCULAR: Regular rate and rhythm without murmurs, gallops, or rubs. Left subclavian permacath RESPIRATORY: Clear to auscultation. Breath sounds equal bilaterally. No wheezes , rales, or rhonchi. GASTROINTESTINAL: Abdomen soft, non-tender, slightly distended. Bowel sounds active 4. MUSCULOSKELETAL: Extremities without clubbing, cyanosis. Right upper extremity previous AV fistula site with axillary incision intact, positive edema +2, positive erythema. Pulses palpable. Right upper extremity limited R OM able to slightly extend, difficulty with flexion NEUROLOGICAL: Awake and alert. Oriented to person, place. Motor and sensory grossly within normal limits. Normal speech. Laboratory Laboratory Tests Test 11/10/17 15:45 White Blood Count 6.9 Red Blood Count 5.14 Hemoglobin 11.5 Hematocrit 38.0 Mean Corpuscular Volume 73.9 Mean Corpuscular Hemoglobin 22.5 Mean Corpuscular Hemoglobin Concent 30.4 Red Cell Distribution Width 23.0 Platelet Count 222 Mean Platelet Volume 7.3 Neutrophils (%) (Auto) 59.8 Lymphocytes (%) (Auto) 20.6 Monocytes (%) (Auto) 13.3 Eosinophils (%) (Auto) 5.8 Basophils (%) (Auto) 0.5 Neutrophils # (Auto) 4.2 Lymphocytes # (Auto) 1.4 Monocytes # (Auto) 0.9 Eosinophils # (Auto) 0.4 Basophils # (Auto) 0.0 CBC Comment DIFF FINAL Differential Comment Prothrombin Time 10.7 Prothromb Time International Ratio 1.1 Activated Partial Thromboplast Time 28.9 Blood Urea Nitrogen 45 Creatinine 9.57 Random Glucose 108 Total Protein 7.8 Albumin 3.3 Calcium Level 9.5 Phosphorus Level 4.6 Magnesium Level 2.4 Alkaline Phosphatase 115 Aspartate Amino Transf (AST/SGOT) 20 Alanine Aminotransferase (ALT/SGPT) 20 Total Bilirubin 0.4 Sodium Level 138 Potassium Level 4.9 Chloride Level 102 Carbon Dioxide Level 24.5 Anion Gap 12 Estimat Glomerular Filtration Rate 6 Date/Time Source Procedure Growth Status 11/10/17 16:00 Blood Peripheral Aerobic Blood Culture Pending Received 11/10/17 16:00 Blood Peripheral Anaerobic Blood Culture Pending Received Result Diagram: 11/10/17 1545 11/10/17 1545 Imaging Last Impressions Chest X-Ray 11/10/17 1525 Signed Impressions: Service Date/Time: Friday, November 10, 2017 15:28 - CONCLUSION: Mild compensated cardiomegaly with Brandon Sam MD FACR Caprini VTE Risk Assessment Caprini VTE Risk Assessment: Mod/High Risk (score >= 2) Caprini Risk Assessment Model Point Value = 1 Point Value = 2 Point Value = 3 Point Value = 5 Age 41-60 Minor surgery BMI > 25 kg/m2 Swollen legs Varicose veins or History of unexplained or recurrent spontaneous Oral contraceptives or hormone replacement Sepsis (< 1 month) Serious lung disease, including pneumonia (< 1 month) Abnormal pulmonary function Acute myocardial infarction Congestive heart failure (< 1 month) History of inflammatory bowel disease Medical patient at bed rest Age 61-74 Arthroscopic surgery Major open surgery (> 45 min) Laparoscopic surgery (> 45 min) Malignancy Confined to bed (> 72 hours) Immobilizing plaster cast Central venous access Age >= 75 History of VTE Family history of VTE Factor V Leiden Prothrombin [id number] Lupus anticoagulant Anticardiolipin antibodies Elevated serum homocysteine Heparin-induced thrombocytopenia Other congenital or acquired thrombophilia Stroke (< 1 month) Elective arthroplasty Hip, pelvis, or leg fracture Acute spinal cord injury (< 1 month) Prophylaxis Regimen Total Risk Factor Score Risk Level Prophylaxis Regimen 0-1 Low Early ambulation 2 Moderate Order ONE of the following: *Sequential Compression Device (SCD) *Heparin 5000 units SQ BID 3-4 Higher Order ONE of the following medications: *Heparin 5000 units SQ TID *Enoxaparin/Lovenox 40 mg SQ daily (WT < 150 kg, CrCl > 30 mL/min) *Enoxaparin/Lovenox 30 mg SQ daily (WT < 150 kg, CrCl > 10-29 mL/min) *Enoxaparin/Lovenox 30 mg SQ BID (WT < 150 kg, CrCl > 30 mL/min) AND/OR *Sequential Compression Device (SCD) 5 or more Highest Order ONE of the following medications: *Heparin 5000 units SQ TID (Preferred with Epidurals) *Enoxaparin/Lovenox 40 mg SQ daily (WT < 150 kg, CrCl > 30 mL/min) *Enoxaparin/Lovenox 30 mg SQ daily (WT < 150 kg, CrCl > 10-29 mL/min) *Enoxaparin/Lovenox 30 mg SQ BID (WT < 150 kg, CrCl > 30 mL/min) AND *Sequential Compression Device (SCD) Assessment and Plan Problem List: (1) Right arm cellulitis ICD Code: L03.113 - Cellulitis of right upper limb Status: Acute (2) Diabetes ICD Code: E11.9 - Type 2 diabetes mellitus without complications Status: Chronic (3) End-stage renal disease on hemodialysis ICD Code: N18.6 - End stage renal disease; Z99.2 - Dependence on renal dialysis Status: Chronic (4) HTN (hypertension) ICD Code: I10 - Essential (primary) hypertension (5) Anemia of renal disease ICD Code: D63.1 - Anemia in chronic kidney disease Status: Chronic (6) 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, on dialysis ICD Code: E11.22 - Type 2 diabetes mellitus with diabetic chronic kidney disease; I12.0 - Hypertensive chronic kidney disease with stage 5 chronic kidney disease or end stage renal disease; N18.6 - End stage renal disease; Z99.2 - Dependence on renal dialysis Status: Chronic Assessment and Plan Patient is an 82-year-old male with primary medical history of end-stage renal disease on hemodialysis, peripheral vascular disease, DM, HTN, HLD, GERD, history of DVT who initially came to the hospital for complaints of right upper extremity swelling and pain with decreased range of motion. Right upper extremity cellulitis Does not meet SIRS, sepsis criteria -Patient underwent right upper extremity axillary artery to axillary vein arteriovenous loop, 11/03/[address] Bustos -Consult vascular surgery, Dr. Bustos appreciate recommendations -Check ultrasound arm hemodialysis -Follow-up labs -Start IV antibiotic, Vancomycin -Tramadol, gabapentin for pain relief End-stage renal disease on hemodialysis -Patient now has a permacath left subclavian -Hemodialysis Wednesday, , Wednesday -Consult nephrology HTN HLD -Continue home medication Norvasc, aspirin, atorvastatin DVT prop heparin This note was transcribed by chhaya [ Lesli Marmoljeo]. I, Dr. Natalia Orta personally performed the history, physical exam, and medical decision making; and confirmed the accuracy of the information in the transcribed note. Authenticated by Dr. Natalia Orta on 11/10/17 at 18:20. Code Status Full code Discussed Condition With Patient, nursing, ED attending Physician Certification 2 Midnight Certification Type: Admission for Inpatient Services Order for Inpatient Services The services are ordered in accordance with Medicare regulations or non- Medicare payer requirements, as applicable. In the case of services not specified as inpatient-only, they are appropriately provided as inpatient services in accordance with the 2-midnight benchmark. Estimated LOS (days): 2 days is the estimated time the patient will need to remain in the hospital, assuming treatment plan goals are met and no additional complications. Post-Hospital Plan: Home Lesli Negrete November 10, 2017 18:38 Natalia Orta MD November 10, 2017 18:50
[2017-11-10 18:54] VITALS: BP 120/57; PULSE 70; RESP 16; O2SAT 98
[2017-11-10] MEDS ORDERED: PHARMACY NEEDS HT/WT ENTERED INTO MEDITECH OTHER SCH (19:15)
[2017-11-10] MEDS: LABETALOL HCL 200 MG TAB PO SCH ×2 (19:22→22:07)
[2017-11-10] MEDS ORDERED: VANCOMYCIN INJ 1,000 MG in SODIUM CHLOR 0.9% 250 ML INJ 250 ML IV SCH (19:30)
[2017-11-10] MEDS: ATORVASTATIN 40 MG TAB PO SCH (22:07)
[2017-11-10] MEDS: SODIUM CHLORIDE 0.9% FLUSH 10 ML FLUSH IV FLUSH SCH (22:08)
--- NOTE | 2017-11-10 23:29 | RADRPT ---
EXAM DATE/TIME: 11/10/2017 22:13 [place] COMPARISON: No previous studies available for comparison. INDICATIONS : Post graft. MEDICAL HISTORY : Congestive heart failure. Hypertension. Gastroesophageal reflux disease. Dementia. Hyperlipidemia. CO PD. CVA. Hemorrhage of RUE fistula. Prostate cancer. SURGICAL HISTORY : Tonsillectomy. A-V shunt. RUE fistula. ENCOUNTER: Initial ACUITY: 4-6 days PAIN SCORE: 8/10 LOCATION: Right proximal arm. AREA EVALUATED: Axillary AV loop fistula in right upper extremity FINDINGS: AV fistula of the right upper extremity is patent. No stenotic areas are demonstrated. No fluid colle ction, aneurysm or pseudoaneurysm seen. There is mild subcutaneous edema. CONCLUSION: Patent right upper extremity AV fistula. No acute complication demonstrated. Eduardo Puente MD on November 10, 2017 at 23:25 Board Certified Radiologist. This report was verified electronically.
[2017-11-11] VITALS: BP_SYST 136; BP_DIAS 45; BP_DIAS 61; PULSE 110; RESP 16; TEMP 97.3; O2SAT 95
[2017-11-11 06:23] LABS: AUTOMATED NEUTROPHIL # 4.1 TH/MM3 (1.8-7.7); BASOPHIL # 0.1 TH/MM3 (0-0.2); EOSINOPHIL # 0.4 TH/MM3 (0-0.4); EOSINOPHIL % 6.5 % (0.0-4.0); HEMATOCRIT 39.4 % (39.0-51.0); HEMOGLOBIN 12.1 GM/DL (13.0-17.0); LYMPH % 19.7 % (9.0-44.0); LYMPHOCYTE # 1.3 TH/MM3 (1.0-4.8); MEAN CELL VOLUME 73.3 FL (80.0-100.0); MEAN CORPUSCULAR HEMOGLOBIN 22.5 PG (27.0-34.0); MEAN CORPUSCULAR HGB CONC 30.6 % (32.0-36.0); MEAN PLATELET VOLUME 8.4 FL (7.0-11.0); MONO % 10.7 % (0.0-8.0); MONOCYTE # 0.7 TH/MM3 (0-0.9); NEUT % 62.1 % (16.0-70.0); PLATELET COUNT 266 TH/MM3 (150-450); RED BLOOD COUNT 5.37 MIL/MM3 (4.50-5.90); RED CELL DISTRIBUTION WIDTH 21.8 % (11.6-17.2); WHITE BLOOD COUNT 6.6 TH/MM3 (4.0-11.0)
[2017-11-11] MEDS ORDERED: SODIUM CHLOR 0.9% 1000 ML INJ 1,000 ML IV PRN (06:49)
[2017-11-11] MEDS ORDERED: SODIUM CHLOR 0.9% 1000 ML INJ 1,000 ML OTHER PRN ×2 (06:49)
[2017-11-11 06:58] LABS: BICARBONATE 23.4 MEQ/L (21.0-32.0); CALCIUM 9.3 MG/DL (8.5-10.1); VANCOMYCIN TROUGH 18.2 MCG/ML (5.0-10.0)
[2017-11-11] MEDS ORDERED: MANNITOL 12.5 GM/50 ML VIAL IV PRN (07:00)
[2017-11-11] MEDS ORDERED: NITROGLYCERIN 0.4 MG SL 25 TABS/BTL SL PRN (07:00)
[2017-11-11] MEDS ORDERED: HEPARIN SODIUM - IV 10,000 UNITS/10 ML VIAL PRN (07:00)
[2017-11-11] MEDS ORDERED: SODIUM CHLORIDE 0.9% FLUSH 10 ML FLUSH IV FLUSH PRN (07:00)
[2017-11-11] MEDS ORDERED: ALBUMIN 25% INJ 100 ML IV PRN (07:00)
[2017-11-11] MEDS ORDERED: HEPARIN SODIUM - IV 10,000 UNITS/10 ML VIAL IV FLUSH PRN (07:00)
[2017-11-11] MEDS ORDERED: diphenhydrAMINE HCL 25 MG CAP PO PRN (07:00)
[2017-11-11] MEDS ORDERED: ONDANSETRON HCL 4 MG/2 ML VIAL IV PUSH PRN (07:00)
[2017-11-11] MEDS ORDERED: cloNIDine HCL 0.1 MG TAB PO PRN (07:00)
[2017-11-11] MEDS ORDERED: ACETAMINOPHEN 325 MG TAB PO PRN (07:00)
[2017-11-11] MEDS ORDERED: GENTAMICIN SULFATE 20 MG/2 ML VIAL OTHER PRN (07:00)
[2017-11-11] MEDS ORDERED: GELATIN 12 MM/7 MM FOAM TOP PRN (07:00)
[2017-11-11 07:19] LABS: CREATININE 10.74 MG/DL (0.60-1.30)
[2017-11-11 07:33] VITALS: BP 124/58; PULSE 67; RESP 19; TEMP 97.4; O2SAT 97
[2017-11-11] MEDS: FUROSEMIDE 40 MG TAB PO SCH (08:21)
[2017-11-11] MEDS: LABETALOL HCL 200 MG TAB PO SCH ×2 (08:21→21:48)
[2017-11-11] MEDS ORDERED: VANCOMYCIN INJ 1,000 MG in SODIUM CHLOR 0.9% 250 ML INJ 250 ML IV SCH (09:00)
[2017-11-11] MEDS: DOCUSATE SODIUM 100 MG CAP PO SCH (09:00)
[2017-11-11] MEDS ORDERED: ALBUTEROL SULFATE 90 MCG/ACT HFA 8 GM INHALER INH PRN (09:00)
[2017-11-11] MEDS ORDERED: DEXTROSE 50% IN WATER 50 ML VIAL(D50) IV PUSH PRN (09:15)
[2017-11-11] MEDS ORDERED: GLUCAGON 1 MG/ML VIAL OTHER PRN (09:15)
--- NOTE | 2017-11-11 09:20 | HHI.PR ---
Subjective Remarks Follow-up right arm cellulitis. States he is not too bad. Only has pain with activity. No fever or chills. Objective Vitals Vital Signs Date Time Temp Pulse Resp B/P (MAP) Pulse Ox O2 Delivery O2 Flow Rate FiO2 11/11/17 07:33 97.4 67 19 124/58 (80) 97 11/11/17 00:00 97.3 110 16 136/61 (86) 95 11/10/17 23:08 18 11/10/17 21:09 11/10/17 18:54 70 16 120/57 (78) 98 Room Air 11/10/17 16:35 96 Room Air 11/10/17 14:52 97.7 70 20 108/55 (72) 100 Result Diagram: 11/11/17 0530 11/11/17 0530 Imaging Last Impressions Chest X-Ray 11/10/17 1525 Signed Impressions: Service Date/Time: Friday, November 10, 2017 15:28 - CONCLUSION: Mild compensated cardiomegaly with Brandon Sam MD FACR Upper Extremity Ultrasound 11/10/17 0000 Signed Impressions: Service Date/Time: Friday, November 10, 2017 22:13 - CONCLUSION: Patent right upper extremity AV fistula. No acute complication demonstrated. Eduardo Puente MD Objective Remarks GENERAL: This is a well-nourished, well-developed patient, in no apparent distress. SKIN: Cool and dry. CARDIOVASCULAR: Regular rate and rhythm without murmurs, gallops, or rubs. Left subclavian permacath RESPIRATORY: Clear to auscultation. Breath sounds equal bilaterally. No wheezes , rales, or rhonchi. GASTROINTESTINAL: Abdomen soft, non-tender, slightly distended. Bowel sounds active 4. MUSCULOSKELETAL: Extremities without clubbing, cyanosis. Right upper extremity previous AV fistula site with axillary incision intact, positive edema +2, positive erythema. Pulses palpable. Right upper extremity limited ROM able to slightly extend, difficulty with flexion NEUROLOGICAL: Awake and alert. Oriented to person, place. Motor and sensory grossly within normal limits. Normal speech. 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, on dialysis ICD Code: E11.22 - Type 2 diabetes mellitus with diabetic chronic kidney disease; I12.0 - Hypertensive chronic kidney disease with stage 5 chronic kidney disease or end stage renal disease; N18.6 - End stage renal disease; Z99.2 - Dependence on renal dialysis Status: Chronic Assessment and Plan Patient is an 82-year-old male with primary medical history of end-stage renal disease on hemodialysis, peripheral vascular disease, DM, HTN, HLD, GERD, history of DVT who initially came to the hospital for complaints of right upper extremity swelling and pain with decreased range of motion. Right upper extremity cellulitis Does not meet SIRS, sepsis criteria -Patient underwent right upper extremity axillary artery to axillary vein arteriovenous loop, 11/03/[address] Bustos -Consult vascular surgery, Dr. Bustos appreciate recommendations -Unremarkable ultrasound arm hemodialysis -Follow-up labs -Continue vancomycin to be given during hemodialysis -Tramadol, gabapentin for pain relief End-stage renal disease on hemodialysis -Patient now has a permacath left subclavian -Hemodialysis Wednesday, , Wednesday -Consult nephrology HTN HLD -Continue home medication Norvasc, aspirin, atorvastatin DVT prop heparin Discharge Planning Possible discharge pending evaluation by nephrology and vascular surgery. Vancomycin can be given during outpatient dialysis Marcelo Walters MD November 11, 2017 09:20
--- NOTE | 2017-11-11 09:22 | HHI.DCPOC ---
Discharge Care Plan Diagnosis: (1) Right arm cellulitis Your Health Problems Are: Difficulty with ADL Exercise Tolerance Goals to Promote Your Health * To prevent worsening of your condition and complications * To maintain your health at the optimal level Directions to Meet Your Goals Take your medications as prescribed Follow your dietary instruction Follow activity as directed Keep your appointments as scheduled Take your immunizations and boosters as scheduled If your symptoms worsen call your PCP, if no PCP go to Urgent Care Center or Emergency Room Smoking is Dangerous to Your Health. Avoid second hand smoke Call the 24-hour hour crisis hotline for domestic abuse at Marcelo Walters MD November 11, 2017 09:22
[2017-11-11] MEDS: FERROUS SULFATE 325 MG (65 MG ELEMENTAL IRON) TAB PO SCH (09:30)
[2017-11-11] MEDS: ALLOPURINOL 100 MG TAB PO SCH (09:30)
[2017-11-11] MEDS: SODIUM CHLORIDE 0.9% FLUSH 10 ML FLUSH IV FLUSH SCH ×2 (09:30→21:49)
[2017-11-11] MEDS: SEVELAMER CARBONATE 800 MG TAB PO SCH ×3 (09:30→18:24)
[2017-11-11] MEDS: HEPARIN SODIUM - SQ 10,000 UNITS/ML VIAL SQ SCH ×2 (09:30→21:48)
[2017-11-11] MEDS: ASPIRIN EC 81 MG TABEC PO SCH (09:30)
[2017-11-11] MEDS: GABAPENTIN 100 MG CAP PO SCH ×3 (09:30→18:24)
--- NOTE | 2017-11-11 09:42 | PD.VS.CON ---
History of Present Illness Chief Complaint: Right Arm Swelling with Erythema S/p Right Ax-Ax loop AVF Consult Requested by: History of Present Illness Mr. Root is a pleasant 82/M who has a PMH of ESRD on HD (), DM, Hyperlipidemia, HTN and PVD Pt arrived to the hospital w/ c/o right arm pain, swelling with erythema Pt denied fever of chills Pt s/p RIGHT ax-ax loop AVF (11/03/17) Pt denied hand pain UE warm with motor intact and palpable distal pulses (Gill De Guzman) Past/Family/Social History Past Medical History End Stage Renal Disease - On HD / DM HTN Hyperlipidemia Peripheral Vascular Disease Past Surgical History R UE AVF placement- 2013 R UE AVF pseudoaneurysm repair/ligation- 07/22 R UE AVF (ax-ax loop) 11/19 Social History Denies ETOH use Denies tobacco use Denies illicit drug Family History Denied (Gill De Guzman) Home Medications Active Scripts Labetalol (Labetalol) 200 Mg Tab, 200 MG PO Q8H, #90 TAB 1 Refill Prov:Jairo Lang MD R2 08/03/17 Reported Medications Ergocalciferol (Ergocalciferol) 50,000 Unit Cap, 26269 UNITS PO Q7D for Nutritional Supplement, #30 CAP 0 Refills 11/02/17 Albuterol 18 GM Inh (Ventolin Hfa 18 GM Inh) 90 Mcg/Act Aer, 1 PUFF INH Q6HR Y for SHORTNESS OF BREATH, #1 INHALER 0 Refills 11/02/17 B-Complex W/ C & Folic Acid (Padmini-Micah) 1 Tab, 1 TAB PO DAILY, TAB 11/02/17 Lactulose (Lactulose) 10 Gram/15 Ml (15 Ml) Solution, 15 ML PO BID 09/28/17 Tramadol (Tramadol) 50 Mg Tab, 50 MG PO BID Y for PAIN, TAB 0 Refills 09/28/17 Gabapentin (Gabapentin) 100 Mg Cap, 100 MG PO TID, #90 CAP 0 Refills 08/02/17 Furosemide (Furosemide) 40 Mg Tab, 40 MG PO DAILY, #30 TAB 0 Refills 08/02/17 Docusate Sodium (Docusate Sodium) 100 Mg Tab, 200 MG PO DAILY, TAB 08/02/17 Atorvastatin (Atorvastatin) 40 Mg Tab, 40 MG PO HS for Cholesterol Management, # 30 TAB 0 Refills 08/02/17 Amlodipine (Amlodipine) 10 Mg Tab, 10 MG PO DAILY for Blood Pressure Management , #30 TAB 0 Refills 08/02/17 Acetaminophen (Mapap) 500 Mg Cap, 500 MG PO TID, CAP 0 Refills 08/02/17 Fluticasone Nasal [place] (Fluticasone Nasal [place]) 50 Mcg/Act Naspr, 50 MCG EACH NARE DAILY for Allergy Management, #1 BOTTLE 0 Refills 50 mcg/spray 08/02/17 Sevelamer Carbonate (Renvela) 800 Mg Tab, 800 MG PO TIDAC for Control phosphorous levels, #90 TAB 0 Refills 08/02/17 Ferrous Sulfate (Ferrous Sulfate) 325 Mg (65 Mg Iron) Tablet, 325 MG PO DAILY for Nutritional Supplement, #30 TAB 0 Refills 08/02/[address] (Aspirin 81) 81 Mg Tabdr, 81 MG PO DAILY, TAB 0 Refills 08/02/17 Allopurinol (Allopurinol) 100 Mg Tab, 100 MG PO DAILY for Gout, #30 TAB 0 Refills 08/02/17 Coded Allergies: No Known Allergies (Verified Allergy, Unknown, 11/10/17) Review of Systems Constitutional: DENIES: Fever, Chills Cardiovascular: DENIES: Chest pain, Dyspnea on Exertion Musculoskeletal: COMPLAINS OF: Stiffness (Right upper arm swelling noted ) Integumentary: COMPLAINS OF: Abnormal pigmentation (Erythema present to R UE ) (Gill De Guzman) Physical Exam Vitals/I&O Date Time Temp Pulse Resp B/P (MAP) Pulse Ox O2 Delivery O2 Flow Rate FiO2 11/11/17 07:33 97.4 67 19 124/58 (80) 97 11/11/17 00:00 97.3 110 16 136/61 (86) 95 11/10/17 23:08 18 11/10/17 21:09 11/10/17 18:54 70 16 120/57 (78) 98 Room Air 11/10/17 16:35 96 Room Air 11/10/17 14:52 97.7 70 20 108/55 (72) 100 Neuro: A&OX3 GCS 15 CN 2-12 intact HEENT: YOUSIF Neck: No JVD distention Heart: RRR Lungs: BS CTA Vascular: Palpable R/L radial pulse R UE AVF incision intact w/ swelling and erythema UE warm w/ motor intact NO hand pain present + thrill palpable near R UE AVF Extremities: UE 11/06 (Gill De Guzman) Laboratory Tests Test 11/10/17 15:45 11/11/17 05:30 White Blood Count 6.9 6.6 Red Blood Count 5.14 5.37 Hemoglobin 11.5 12.1 Hematocrit 38.0 39.4 Mean Corpuscular Volume 73.9 73.3 Mean Corpuscular Hemoglobin 22.5 22.5 Mean Corpuscular Hemoglobin Concent 30.4 30.6 Red Cell Distribution Width 23.0 21.8 Platelet Count 222 266 Mean Platelet Volume 7.3 8.4 Neutrophils (%) (Auto) 59.8 62.1 Lymphocytes (%) (Auto) 20.6 19.7 Monocytes (%) (Auto) 13.3 10.7 Eosinophils (%) (Auto) 5.8 6.5 Basophils (%) (Auto) 0.5 1.0 Neutrophils # (Auto) 4.2 4.1 Lymphocytes # (Auto) 1.4 1.3 Monocytes # (Auto) 0.9 0.7 Eosinophils # (Auto) 0.4 0.4 Basophils # (Auto) 0.0 0.1 CBC Comment DIFF FINAL DIFF FINAL Differential Comment Prothrombin Time 10.7 Prothromb Time International Ratio 1.1 Activated Partial Thromboplast Time 28.9 Blood Urea Nitrogen 45 48 Creatinine 9.57 10.74 Random Glucose 108 72 Total Protein 7.8 Albumin 3.3 Calcium Level 9.5 9.3 Phosphorus Level 4.6 Magnesium Level 2.4 Alkaline Phosphatase 115 Aspartate Amino Transf (AST/SGOT) 20 Alanine Aminotransferase (ALT/SGPT) 20 Total Bilirubin 0.4 Sodium Level 138 139 Potassium Level 4.9 4.9 Chloride Level 102 103 Carbon Dioxide Level 24.5 23.4 Anion Gap 12 13 Estimat Glomerular Filtration Rate 6 6 Vancomycin Level Trough 18.2 Date/Time Source Procedure Growth Status 11/10/17 16:00 Blood Peripheral Aerobic Blood Culture Pending Received 11/10/17 16:00 Blood Peripheral Anaerobic Blood Culture Pending Received Last 48 hours Impressions Chest X-Ray 11/10/17 1525 Signed Impressions: Service Date/Time: Friday, November 10, 2017 15:28 - CONCLUSION: Mild compensated cardiomegaly with Brandon Sam MD FACR Upper Extremity Ultrasound 11/10/17 0000 Signed Impressions: Service Date/Time: Friday, November 10, 2017 22:13 - CONCLUSION: Patent right upper extremity AV fistula. No acute complication demonstrated. Eduardo Puente MD (Gill De Guzman) Assessment and Plan Assessment: (1) AVF (arteriovenous fistula) (2) Right arm cellulitis Status: Acute Plan Afebrile 82/M S/P R UE AVF presenting w/ cellulitis to his R UE Pt w/o F/C Reviewed U/S- AVF patent with no acute findings UE warm with motor intact Distal pulses palpable Plan R UE AVF patent Recommend and ordered Vancomycin to be given w/ HD for 2W Will continue to follow [facility] [phone] (Gill De Guzman) Plan Pt s/p redo R UE AVF, this time R ax-ax loop AVG. Adm with cellulitis. U/S looks like only edema. On exam, hand ok and arm edematous. Erythema laterally. WBC normal. Afebrile here. Recommend IV Vanc with HD (ordered) if clinical improvement over next 1-2 days, can be managed as outpatient. Agustín Bustos MD FACS [employer] supervisory geographer [facility] [phone] (Agustín Bustos MD) Gill De Guzman November 11, 2017 09:42 Agustín Bustos MD November 11, 2017 10:53
[2017-11-11 11:33] VITALS: BP 117/57; PULSE 60; RESP 20; TEMP 97.7; O2SAT 97
[2017-11-11] MEDS: INSULIN ASPART SUPPLEMENTAL SCALE SQ SCH ×3 (11:53→21:00)
[2017-11-11 12:17] VITALS: O2SAT 98
--- NOTE | 2017-11-11 17:15 | PD.CONS ---
HPI Consult Requested By Reason for Consult End-stage renal disease with a need for inpatient nephrology services. Primary Care Physician Jacinto Chakraborty M.D. History of Present Illness This patient is a very pleasant 82-year-old male with a history of dementia, end -stage renal disease, diabetes mellitus as well as CHF status post placement of a right axillary to axillary loop AV graft. This was placed after failure of a previous access related to rupture of access. Patient noted to have increasing edema of the right upper extremity. Outpatient Doppler study did not show any evidence of a DVT. Patient now admitted with a possible cellulitis of the right upper extremity. Is receiving vancomycin. Patient was seen during his dialysis session today. Past Family Social History Allergies: Coded Allergies: No Known Allergies (Verified Allergy, Unknown, 11/10/17) Past Medical History End-stage renal disease on hemodialysis Peripheral vascular disease Diabetes mellitus Hyperlipidemia Hypertension GERD History of DVT History of CVA COPD CHF Dementia Past Surgical History AV fistula placement for dialysis 2013 R UE AVF pseudoaneurysm repair/ligation- 07/22 Surgical control bleeding from AV fistula July 2017 R UE AVF (ax-ax loop) 11/19 Reported Medications Reported Meds & Active Scripts Active Labetalol (Labetalol HCl) 200 Mg Tab 200 Mg PO Q8H Reported Ergocalciferol 50,000 Unit Cap 50,000 Units PO Q7D Ventolin Hfa 18 GM Inh (Albuterol Sulfate) 90 Mcg/Act Aer 1 Puff INH Q6HR PRN Padmini-Micah (B-Complex W/ C & Folic Acid) 1 Tab 1 Tab PO DAILY Lactulose 10 Gram/15 Ml (15 Ml) Solution 15 Ml PO BID Tramadol (Tramadol HCl) 50 Mg Tab 50 Mg PO BID PRN Gabapentin 100 Mg Cap 100 Mg PO TID Furosemide 40 Mg Tab 40 Mg PO DAILY Docusate Sodium 100 Mg Tab 200 Mg PO DAILY Atorvastatin (Atorvastatin Calcium) 40 Mg Tab 40 Mg PO HS Amlodipine (Amlodipine Besylate) 10 Mg Tab 10 Mg PO DAILY Mapap (Acetaminophen) 500 Mg Cap 500 Mg PO TID Fluticasone Nasal [place] 50 Mcg/Act Naspr 50 Mcg EACH NARE DAILY 50 mcg/spray Renvela (Sevelamer Carbonate) 800 Mg Tab 800 Mg PO TIDAC Ferrous Sulfate 325 Mg (65 Mg Iron) Tablet 325 Mg PO DAILY Aspirin 81 (Aspirin) 81 Mg Tabdr 81 Mg PO DAILY Allopurinol 100 Mg Tab 100 Mg PO DAILY Active Ordered Medications Current Medications Vancomycin HCl 1000 mg/Sodium Chloride 250 ml @ 250 mls/hr ONCE ONCE IV Last administered on 11/10/17 18:15; Start 11/10/17 at 18:15; Stop 11/10/17 at 19:14; Status DC Allopurinol (Zyloprim) 100 mg DAILY PO Last administered on 11/11/17at 09:30; Start 11/11/17 at 09:00 Amlodipine Besylate (Norvasc) 10 mg DAILY PO ; Start 11/11/17 at 09:00 Aspirin (Ecotrin Ec) 81 mg DAILY PO Last administered on 11/11/17at 09:30; Start 11/11/17 at 09:00 Atorvastatin Calcium (Lipitor) 40 mg HS PO Last administered on 11/10/17 22:07 ; Start 11/10/17 at 21:00 Ferrous Sulfate (Ferrous Sulfate) 325 mg DAILY PO Last administered on 09:30; Start 11/11/17 at 09:00 Furosemide (Lasix) 40 mg DAILY PO ; Start 11/11/17 at 09:00 Gabapentin (Neurontin) 100 mg TID PO Last administered on 11/11/17 12:25; Start 11/11/17 at 09:00 Labetalol HCl (Trandate) 200 mg Q8HR PO Last administered on 11/10/17 22:07; Start 11/10/17 at 18:30 Sevelamer Carbonate (Renvela) 800 mg TIDAC PO Last administered on 11/11/17at 12 :24; Start 11/11/17 at 08:00 Tramadol HCl (Ultram) 50 mg BID PRN PO PAIN SCALE 1-10 Last administered on 11/10 22:07; Start 11/10/17 at 18:30 Sodium Chloride (NS Flush) 2 ml BID IV FLUSH Last administered on 11/11/17 09: 30; Start 11/10/17 at 21:00 Sodium Chloride (NS Flush) 2 ml UNSCH PRN IV FLUSH FLUSH AFTER USING IV ACCESS ; Start 11/10/17 at 18:30 Pharmacy Profile Note 0 ml @ 0 mls/hr UNSCH OTHER ; Start 11/10/17 at 18:30; Status Cancel Vancomycin HCl 1000 mg/Sodium Chloride 250 ml @ 250 mls/hr Q12H IV ; Start 11/10 at 19:30; Stop 11/10/17 at 19:30; Status DC Heparin Sodium (Porcine) (Heparin Inj) 5,000 units Q12HR SQ Last administered on 11/11/17at 09:30; Start 11/10/17 at 18:30 Miscellaneous Information ([facility] [place] Nursing Information) PHARMACY NEEDS HT/ WT ENTE... Q15M OTHER ; Start 11/10/17 at 19:15; Stop 11/10/17 at 19:35; Status DC Sodium Chloride 1,000 ml @ 0 mls/hr Q0M PRN OTHER For Prime & Rinse Back; Start 11/11/17 at 06:49 Heparin Sodium (Porcine) (Heparin Inj) 8,000 units UNSCH PRN IV FLUSH WITH DIALYSIS; Start 11/11/17 at 07:00 Sodium Chloride 1,000 ml @ 200 mls/hr Q5H PRN IV WITH DIALYSIS; Start 11/11/17 at 06:49 Sodium Chloride 1,000 ml @ 0 mls/hr Q0M PRN OTHER WITH DIALYSIS; Start at 06:49 Mannitol (Mannitol Inj) 12.5 gm UNSCH PRN IV WITH DIALYSIS; Start 11/11/17 at 07:00 Albumin Human 100 ml @ 60 mls/hr UNSCH PRN IV WITH DIALYSIS; Start 11/11/17 at 07:00 Sodium Chloride (NS Flush) 5 ml UNSCH PRN IV FLUSH WITH DIALYSIS; Start at 07:00 Heparin Sodium (Porcine) (Heparin Inj) UNSCH PRN .XX WITH DIALYSIS Last administered on 11/11/17at 14:49; Start 11/11/17 at 07:00 Gentamicin Sulfate (Gentamicin Inj) 20 mg UNSCH PRN OTHER WITH DIALYSIS Last administered on 11/11/17at 14:49; Start 11/11/17 at 07:00 Ondansetron HCl (Zofran Inj) 4 mg UNSCH PRN IV PUSH WITH DIALYSIS; Start at 07:00 Acetaminophen (Tylenol) 650 mg UNSCH PRN PO for headach, pain, temp > 101F; Start 11/11/17 at 07:00 Diphenhydramine HCl (Benadryl) 25 mg UNSCH PRN PO for hives/itching/anaphylaxis ; Start 11/11/17 at 07:00 Nitroglycerin (Nitrostat Sl) 0.4 mg UNSCH PRN SL CHEST PAIN; Start 11/11/17 at 07:00 Clonidine (Catapres) 0.1 mg UNSCH PRN PO for BP > 180/100 X 2 readings; Start 11/11/17 at 07:00 Gelatin (Gelfoam 12 Mm/7 Mm Top) 1 foam UNSCH PRN TOP SEE LABEL COMMENTS; Start 11/11/17 at 07:00 Albuterol Sulfate (Proair Hfa Inh) 1 puff Q6HR PRN INH SHORTNESS OF BREATH; Start 11/11/17 at 09:00 Docusate Sodium (Colace) 200 mg DAILY PO ; Start 11/11/17 at 09:00 Vancomycin HCl 1000 mg/Sodium Chloride 250 ml @ 250 mls/hr WITH DIALYSIS IV Last administered on 11/11/17at 14:50; Start 11/11/17 at 09:00 Dextrose (D50w (Vial) Inj) 50 ml UNSCH PRN IV PUSH HYPOGLYCEMIA-SEE COMMENTS; Start 11/11/17 at 09:15 Glucagon (Glucagon Inj) 1 mg UNSCH PRN OTHER HYPOGLYCEMIA-SEE COMMENTS; Start 11/11/17 at 09:15 Insulin Aspart (NovoLOG SUPPLEMENTAL SCALE) 1 ACHS SLIDING SCALE SQ ; Start 04/21 at 12:00 Family History Patient is a shelter resident. Social History No current history of alcohol or tobacco abuse. Physical Exam Vital Signs Vital Signs Date Time Temp Pulse Resp B/P (MAP) Pulse Ox O2 Delivery O2 Flow Rate FiO2 11/11/17 12:17 98 21 11/11/17 11:33 97.7 60 20 117/57 (77) 97 11/11/17 07:33 97.4 67 19 124/58 (80) 97 11/11/17 00:00 97.3 110 16 136/61 (86) 95 11/10/17 23:08 18 11/10/17 21:09 11/10/17 18:54 70 16 120/57 (78) 98 Room Air Physical Exam GENERAL: Very pleasant elderly gentleman lying in bed currently being dialyzed via a hemodialysis PermCath. SKIN: Warm and dry. HEAD: Normocephalic. EYES: No scleral icterus. No injection or drainage. NECK: Supple, trachea midline. No JVD or lymphadenopathy. CARDIOVASCULAR: Regular rate and rhythm without murmurs, gallops, or rubs. RESPIRATORY: Breath sounds equal bilaterally. No accessory muscle use. GASTROINTESTINAL: Abdomen soft, non-tender, nondistended. MUSCULOSKELETAL: No cyanosis, 3+ pitting edema of the right upper extremity. There is an audible bruit overlying the graft in his right arm. BACK: Nontender without obvious deformity. No CVA tenderness. Laboratory Laboratory Tests Test 11/11/17 05:30 White Blood Count 6.6 Red Blood Count 5.37 Hemoglobin 12.1 Hematocrit 39.4 Mean Corpuscular Volume 73.3 Mean Corpuscular Hemoglobin 22.5 Mean Corpuscular Hemoglobin Concent 30.6 Red Cell Distribution Width 21.8 Platelet Count 266 Mean Platelet Volume 8.4 Neutrophils (%) (Auto) 62.1 Lymphocytes (%) (Auto) 19.7 Monocytes (%) (Auto) 10.7 Eosinophils (%) (Auto) 6.5 Basophils (%) (Auto) 1.0 Neutrophils # (Auto) 4.1 Lymphocytes # (Auto) 1.3 Monocytes # (Auto) 0.7 Eosinophils # (Auto) 0.4 Basophils # (Auto) 0.1 CBC Comment DIFF FINAL Differential Comment Blood Urea Nitrogen 48 Creatinine 10.74 Random Glucose 72 Calcium Level 9.3 Sodium Level 139 Potassium Level 4.9 Chloride Level 103 Carbon Dioxide Level 23.4 Anion Gap 13 Estimat Glomerular Filtration Rate 6 Vancomycin Level Trough 18.2 Date/Time Source Procedure Growth Status 11/10/17 16:00 Blood Peripheral Aerobic Blood Culture - Preliminary NO GROWTH IN 1 DAY Resulted 11/10/17 16:00 Blood Peripheral Anaerobic Blood Culture - Preliminary NO GROWTH IN 1 DAY Resulted Result Diagram: 11/11/17 0530 11/11/17 0530 Imaging Last 48 hours Impressions Chest X-Ray 11/10/17 1525 Signed Impressions: Service Date/Time: Friday, November 10, 2017 15:28 - CONCLUSION: Mild compensated cardiomegaly with Brandon Sam MD FACR Upper Extremity Ultrasound 11/10/17 0000 Signed Impressions: Service Date/Time: Friday, November 10, 2017 22:13 - CONCLUSION: Patent right upper extremity AV fistula. No acute complication demonstrated. Eduardo Puente MD Assessment and Plan Problem List: (1) End-stage renal disease on hemodialysis ICD Codes: N18.6 - End stage renal disease; Z99.2 - Dependence on renal dialysis Status: Chronic Plan: Patient seen on dialysis today and is tolerating his session well. Medication should be adjusted for his end-stage renal disease when indicated. Avoid gadolinium. (2) Right arm cellulitis ICD Codes: L03.113 - Cellulitis of right upper limb Status: Acute Plan: Uncertain if the edema is related to cellulitis or possibly a central venous stenosis. Continue to monitor. If patient still has significant edema despite antibiotic therapy we could consider doing a venogram for further evaluation. 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
[2017-11-11 20:32] VITALS: O2SAT 98
[2017-11-11 21:00] VITALS: BP 119/60; PULSE 69; RESP 19; TEMP 97.7; O2SAT 97
[2017-11-11] MEDS: ATORVASTATIN 40 MG TAB PO SCH (21:48)
[2017-11-12 00:20] VITALS: BP 115/65; PULSE 64; RESP 17; TEMP 98; O2SAT 98
[2017-11-12 04:40] VITALS: BP 118/69; PULSE 69; RESP 19; TEMP 98; O2SAT 98
[2017-11-12] MEDS: LABETALOL HCL 200 MG TAB PO SCH ×2 (06:36→13:14)
[2017-11-12 08:00] VITALS: BP 118/57; PULSE 71; RESP 18; TEMP 98.4; O2SAT 95
[2017-11-12] MEDS: INSULIN ASPART SUPPLEMENTAL SCALE SQ SCH ×3 (08:00→17:00)
--- NOTE | 2017-11-12 08:27 | PD.VS.PN ---
Subjective Subjective/Hospital Course Pt w/o complaints this am Pt w/o fever or chills Pt w/o hand pain Pt with improved erythema and swelling to R UE R UE warm w/ motor intact + Thrill palpated near R UE AVF Palpable R Radial pulse noted Objective Vitals/I&O Date Time Temp Pulse Resp B/P (MAP) Pulse Ox O2 Delivery O2 Flow Rate FiO2 11/12/17 04:40 98.0 69 19 118/69 (85) 98 11/12/17 00:20 98.0 64 17 115/65 (82) 98 11/11/17 21:00 97.7 69 19 119/60 (79) 97 11/11/17 20:32 98 11/11/17 12:17 98 21 11/11/17 11:33 97.7 60 20 117/57 (77) 97 11/12/17 11/12/17 11/12/17 07:00 15:00 23:00 Intake Total 150 ml Output Total 0 ml Balance 150 ml Physical Exam GENERAL: A&OX3,NAD,GCS15 SKIN: UE Warm and dry with motor intact R UE Incisions intact w/o drainage CARDIOVASCULAR: Regular rate and rhythm without murmurs, gallops, or rubs. RESPIRATORY: Breath sounds equal bilaterally MUSCULOSKELETAL: No cyanosis, Improved R UE edema and erythema + palpable thrill near R UE AVF + palpable R/L radial pulse Laboratory Date/Time Source Procedure Growth Status 11/10/17 16:00 Blood Peripheral Aerobic Blood Culture - Preliminary NO GROWTH IN 1 DAY Resulted 11/10/17 16:00 Blood Peripheral Anaerobic Blood Culture - Preliminary NO GROWTH IN 1 DAY Resulted Imaging Last 48 hours Impressions Chest X-Ray 11/10/17 1525 Signed Impressions: Service Date/Time: Friday, November 10, 2017 15:28 - CONCLUSION: Mild compensated cardiomegaly with Brandon Sma MD FACR Assessment and Plan Assessment: (1) AVF (arteriovenous fistula) (2) Right arm cellulitis Status: Acute Plan Pt s/p redo R UE AVF (R ax-ax loop AVG) R UE looks ok and RIGHT arm less edematous Pt with improved erythema Pt continues w/o F/C Plan Recommend IV Vanc with HD for 2W, which can be managed as out pt Pt clear for d/c from a Vascular surgery standpoint Arranged out pt f/u Gill De Guzman NP [facility] [phone] Discharge Planning Clear for D/C Arranged out pt f/u Gill De Guzman [facility] November 12, 2017 08:26
--- NOTE | 2017-11-12 09:24 | HHI.PR ---
Subjective Remarks Follow-up right arm cellulitis. Doing ok cleared for dc by Vascular will dw nephrology regarding IV vancomycin for 2 weeks to be given during hemodialysis Objective Vitals Vital Signs Date Time Temp Pulse Resp B/P (MAP) Pulse Ox O2 Delivery O2 Flow Rate FiO2 11/12/17 08:00 98.4 71 18 118/57 (77) 95 11/12/17 04:40 98.0 69 19 118/69 (85) 98 11/12/17 00:20 98.0 64 17 115/65 (82) 98 11/11/17 21:00 97.7 69 19 119/60 (79) 97 11/11/17 20:32 98 11/11/17 12:17 98 21 11/11/17 11:33 97.7 60 20 117/57 (77) 97 I/O 11/11/17 11/11/17 11/11/17 11/12/17 11/12/17 11/12/17 07:00 15:00 23:00 07:00 15:00 23:00 Intake Total 100 ml 150 ml Output Total 2500 ml 0 ml Balance -2400 ml 150 ml Intake Oral 100 ml 150 ml Output Urine Total 0 ml 0 ml Hemodialysis 2500 ml # Bowel Movements 0 0 Result Diagram: 11/11/17 0530 11/11/17 0530 Imaging Last Impressions Chest X-Ray 11/10/17 1525 Signed Impressions: Service Date/Time: Friday, November 10, 2017 15:28 - CONCLUSION: Mild compensated cardiomegaly with Brandon Sam MD FACR Upper Extremity Ultrasound 11/10/17 0000 Signed Impressions: Service Date/Time: Friday, November 10, 2017 22:13 - CONCLUSION: Patent right upper extremity AV fistula. No acute complication demonstrated. Eduardo Puente MD Objective Remarks GENERAL: This is a well-nourished, well-developed patient, in no apparent distress. SKIN: Cool and dry. CARDIOVASCULAR: Regular rate and rhythm without murmurs, gallops, or rubs. Left subclavian permacath RESPIRATORY: Clear to auscultation. Breath sounds equal bilaterally. No wheezes , rales, or rhonchi. GASTROINTESTINAL: Abdomen soft, non-tender, slightly distended. Bowel sounds active 4. MUSCULOSKELETAL: Extremities without clubbing, cyanosis. Right upper extremity previous AV fistula site with axillary incision intact with improved swelling and erythema. Pulses palpable. NEUROLOGICAL: Awake and alert. Oriented to person, place. Motor and sensory grossly within normal limits. Normal speech. 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, on dialysis ICD Code: E11.22 - Type 2 diabetes mellitus with diabetic chronic kidney disease; I12.0 - Hypertensive chronic kidney disease with stage 5 chronic kidney disease or end stage renal disease; N18.6 - End stage renal disease; Z99.2 - Dependence on renal dialysis Status: Chronic Assessment and Plan Patient is an 82-year-old male with primary medical history of end-stage renal disease on hemodialysis, peripheral vascular disease, DM, HTN, HLD, GERD, history of DVT who initially came to the hospital for complaints of right upper extremity swelling and pain with decreased range of motion. Right upper extremity cellulitis. Improving Does not meet SIRS, sepsis criteria -Patient underwent right upper extremity axillary artery to axillary vein arteriovenous loop, 11/03/[address] Bustos -Consult vascular surgery, Dr. Bustos appreciate recommendations continue IV vancomycin for 2 weeks to be given during hemodialysis and cleared patient for discharge -Unremarkable ultrasound arm hemodialysis -Tramadol, gabapentin for pain relief End-stage renal disease on hemodialysis -Patient now has a permacath left subclavian -Hemodialysis Wednesday, , Wednesday -Consulted nephrology to consider venogram if persistent swelling HTN HLD -Continue home medication Norvasc, aspirin, atorvastatin DVT prop heparin Discharge Planning Discharge patient to home Condition on discharge: Improved Regular Diet as tolerated [place] activity no driving Rx written: IV vancomycin to be given during hemodialysis for the next 2 weeks Follow-up with primary care physician, nephrology and vascular surgery Marcelo Walters MD November 12, 2017 09:24
[2017-11-12] MEDS: DOCUSATE SODIUM 100 MG CAP PO SCH (10:57)
[2017-11-12] MEDS: FERROUS SULFATE 325 MG (65 MG ELEMENTAL IRON) TAB PO SCH (10:58)
[2017-11-12] MEDS: FUROSEMIDE 40 MG TAB PO SCH (10:58)
[2017-11-12] MEDS: ALLOPURINOL 100 MG TAB PO SCH (10:58)
[2017-11-12] MEDS: ASPIRIN EC 81 MG TABEC PO SCH (10:59)
[2017-11-12] MEDS: GABAPENTIN 100 MG CAP PO SCH ×3 (10:59→17:52)
[2017-11-12] MEDS: SODIUM CHLORIDE 0.9% FLUSH 10 ML FLUSH IV FLUSH SCH (11:00)
[2017-11-12] MEDS: SEVELAMER CARBONATE 800 MG TAB PO SCH ×3 (11:00→17:52)
[2017-11-12] MEDS: HEPARIN SODIUM - SQ 10,000 UNITS/ML VIAL SQ SCH (11:01)
[2017-11-12 12:00] VITALS: BP 99/60; PULSE 68; RESP 18; TEMP 97.5; O2SAT 98
[2017-11-12 12:51] VITALS: O2SAT 98
[2017-11-12 16:00] VITALS: BP 105/53; PULSE 65; RESP 18; TEMP 97.6; O2SAT 97
--- NOTE | 2017-11-12 16:26 | HHI.NPPN ---
Subjective History of Present Illness This patient is a very pleasant 82-year-old male with a history of dementia, end -stage renal disease, diabetes mellitus as well as CHF status post placement of a right axillary to axillary loop AV graft. This was placed after failure of a previous access related to rupture of access. Patient noted to have increasing edema of the right upper extremity. Outpatient Doppler study did not show any evidence of a DVT. Patient now admitted with a possible cellulitis of the right upper extremity. Is receiving vancomycin. Interval History Pt feeling OK today No complaints. Arm improving. Review of Systems General General Remarks No complaints ROS neg x12 Objective Data Data Vital Signs Date Time Temp Pulse Resp B/P (MAP) Pulse Ox O2 Delivery O2 Flow Rate FiO2 11/12/17 16:00 97.6 65 18 105/53 (70) 97 11/12/17 12:51 98 11/12/17 12:00 97.5 68 18 99/60 (73) 98 11/12/17 08:00 98.4 71 18 118/57 (77) 95 11/12/17 04:40 98.0 69 19 118/69 (85) 98 11/12/17 00:20 98.0 64 17 115/65 (82) 98 11/11/17 21:00 97.7 69 19 119/60 (79) 97 11/11/17 20:32 98 -: 11/11/17 0530 11/11/17 0530 Imaging Last Impressions Chest X-Ray 11/10/17 1525 Signed Impressions: Service Date/Time: Friday, November 10, 2017 15:28 - CONCLUSION: Mild compensated cardiomegaly with Brandon Sam MD FACR Upper Extremity Ultrasound 11/10/17 0000 Signed Impressions: Service Date/Time: Friday, November 10, 2017 22:13 - CONCLUSION: Patent right upper extremity AV fistula. No acute complication demonstrated. Eduardo Puente MD Medication Review Current Medications Medications (Trade) Dose Ordered Sig/Marisol Route Start Time Stop Time Status Last Admin (Zyloprim) 100 mg DAILY PO 11/11/17 09:00 11/12/17 10:58 (Norvasc) 10 mg DAILY PO 11/11/17 09:00 11/12/17 10:59 (Ecotrin Ec) 81 mg DAILY PO 11/11/17 09:00 11/12/17 10:59 (Lipitor) 40 mg HS PO 11/10/17 21:00 11/11/17 21:48 (Ferrous Sulfate) 325 mg DAILY PO 11/11/17 09:00 11/12/17 10:58 (Lasix) 40 mg DAILY PO 11/11/17 09:00 11/12/17 10:58 (Neurontin) 100 mg TID PO 11/11/17 09:00 11/12/17 13:14 (Trandate) 200 mg Q8HR PO 11/10/17 18:30 11/12/17 13:14 (Renvela) 800 mg TIDAC PO 11/11/17 08:00 11/12/17 13:14 (Ultram) 50 mg BID PRN PO 11/10/17 18:30 11/10/17 22:07 (NS Flush) 2 ml BID IV FLUSH 11/10/17 21:00 11/12/17 11:00 (NS Flush) 2 ml UNSCH PRN IV FLUSH 11/10/17 18:30 (Heparin Inj) 5,000 units Q12HR SQ 11/10/17 18:30 11/12/17 11:01 Sodium Chloride 1,000 ml @ 0 mls/hr Q0M PRN OTHER 11/11/17 06:49 (Heparin Inj) 8,000 units UNSCH PRN IV FLUSH 11/11/17 07:00 Sodium Chloride 1,000 ml @ 200 mls/hr Q5H PRN IV 11/11/17 06:49 Sodium Chloride 1,000 ml @ 0 mls/hr Q0M PRN OTHER 11/11/17 06:49 (Mannitol Inj) 12.5 gm UNSCH PRN IV 11/11/17 07:00 Albumin Human 100 ml @ 60 mls/hr UNSCH PRN IV 11/11/17 07:00 (NS Flush) 5 ml UNSCH PRN IV FLUSH 11/11/17 07:00 (Heparin Inj) UNSCH PRN .XX 11/11/17 07:00 11/11/17 14:49 (Gentamicin Inj) 20 mg UNSCH PRN OTHER 11/11/17 07:00 11/11/17 14:49 (Zofran Inj) 4 mg UNSCH PRN IV PUSH 11/11/17 07:00 (Tylenol) 650 mg UNSCH PRN PO 11/11/17 07:00 (Benadryl) 25 mg UNSCH PRN PO 11/11/17 07:00 (Nitrostat Sl) 0.4 mg UNSCH PRN SL 11/11/17 07:00 (Catapres) 0.1 mg UNSCH PRN PO 11/11/17 07:00 (Gelfoam 12 Mm/7 Mm Top) 1 foam UNSCH PRN TOP 11/11/17 07:00 (Proair Hfa Inh) 1 puff Q6HR PRN INH 11/11/17 09:00 (Colace) 200 mg DAILY PO 11/11/17 09:00 11/12/17 10:57 Vancomycin HCl 1000 mg/Sodium Chloride 250 ml @ 250 mls/hr WITH DIALYSIS IV 11/11/17 09:00 11/11/17 14:50 (D50w (Vial) Inj) 50 ml UNSCH PRN IV PUSH 11/11/17 09:15 (Glucagon Inj) 1 mg UNSCH PRN OTHER 11/11/17 09:15 (NovoLOG SUPPLEMENTAL SCALE) 1 ACHS SLIDING SCALE SQ 11/11/17 12:00 Physical Exam General Appearance: No Acute Distress, Comfortable Neck Neck Exam: Neck Supple, Trachea Midline Pulmonary Resp Exam: Clear Bilaterally, Breath Sounds Equal Cardiology CV Exam: Regular, Normal Sinus Rhythm Gastrointestinal/Abdomen GI Exam: Soft, Non-Tender Integumentary Skin Exam: Clear, Warm Extremeties Extremities Exam: Moderate Edema (2+ RUE, trace bilat ankles) Neurologic Neuro Exam: Alert, Awake Psychiatric Psych Exam: Appropriate Responses Assessment/Plan Problem List: (1) End-stage renal disease on hemodialysis ICD Codes: N18.6 - End stage renal disease; Z99.2 - Dependence on renal dialysis Status: Chronic Plan: Continue HD as per outpatient schedule TTS OK to be discharged today since cleared with vascular. Outpatient HD aware to continue Vanc 1g qtx x2 weeks with HD. Medication should be adjusted for his end-stage renal disease when indicated. Avoid gadolinium. (2) Right arm cellulitis ICD Codes: L03.113 - Cellulitis of right upper limb Status: Acute Plan: Uncertain if the edema is related to cellulitis or possibly a central venous stenosis. Continue to monitor. If patient still has significant edema despite antibiotic therapy we could consider doing a venogram for further evaluation. 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
--- NOTE | 2017-11-12 16:47 | HHI.FF ---
Face to Face Verification Diagnosis: (1) Right arm cellulitis Home Health Nursing Order: Medical education Diabetic education Medication education-adverse effect Wound care and dressing changes Nursing assessment with vital signs I have seen patient Victor Manuel Root on 11/12/17. My clinical findings support the need for the requested home health care services because: Deconditioned w/ increased weakness I certify that my clinical findings support that this patient is homebound because: Unsafe to leave home unassisted Need for psychosocial assistance Marcelo Walters MD November 12, 2017 16:47
--- NOTE | 2017-11-12 16:54 | HHI.FF ---
Infusion Therapy Location of Infusion Therapy: Dialysis Center Patient Information Patient Weight 78.5 kg Diagnosis: (1) Right arm cellulitis Coded Allergies: No Known Allergies (Verified Allergy, Unknown, 11/10/17) Administer Medication Vancomycin 1 gram IV q 48 hours w/Hemodialysis ,,Wed Start Treatment: November 13, 2017 Stop Treatment: November 24, 2017 Additional Information Venous access: Tunneled Catheter Additional Instructions [x] Peripheral flush and dressing changes per protocol [x] Implanted port and central main line assembler: * Implanted port: 10 ml Normal Saline followed by 5 ml Heparin 100 units/ml Heparin flush after each use and monthly to maintain. [] May leave port accessed during therapy. [] May leave peripheral site accessed for duration of therapy. [x] If patient has SOB or respiratory distress, check oxygen saturation. If less than 90% or clinical signs of respiratory distress, administer oxygen at 2 L/min. via nasal cannula and notify physician. [x] Anaphylaxis/Reaction orders: * Stop infusion. * Keep IV line open with saline flush. * Notify physician. * Monitor vital signs every 15 minutes until symptoms resolve. * Check Oxygen saturation; Oxygen at 2 L/min. via nasal cannula if less than 90% or clinical signs of respiratory distress. * Administer diphenhydramine (Benadryl) 25 mg IV STAT, (unless patient has received as pre-med). May repeat once, if necessary. * Solu-Cortef 250 mg IVP over 30-60 seconds, use 100 mg vials for each dissolution. * Epinephrine (1mg/1 ml) 0.3 mg subcutaneously or IVP now with any signs of respiratory distress. * Check with physician for new additional pre-med orders if patient is re- challenged or re-treated. [x] May remove PICC line when treatment complete, after confirming with Physician. [x] If the patient is admitted to the hospital, the ED, or transferred via [facility] , complete transfer form including medication reconciliation order sheet. Marcelo Walters MD November 12, 2017 16:54
== END 2017-11-12 19:05 | disposition home health service (06) | DRG 862 ==
LOC: NEPE 14:44 → NEDA 18:12 → N05B 21:12
PROVIDERS: ADMIT Internal Medicine; ATTEND Internal Medicine
PROC: 5A1D70Z Performance of Urinary Filtration, Intermittent, Less than 6 Hours Per Day (ICD-10-PCS; principal; 2017-11-11)
DX: T81.4XXA Infection following a procedure, initial encounter (principal); N18.6 End stage renal disease; I13.2 Hypertensive heart and chronic kidney disease with heart failure and with stage 5 chronic kidney disease, or end stage renal disease; E11.22 Type 2 diabetes mellitus with diabetic chronic kidney disease; F03.90 Unspecified dementia, unspecified severity, without behavioral disturbance, psychotic disturbance, mood disturbance, and anxiety; L03.113 Cellulitis of right upper limb; E11.51 Type 2 diabetes mellitus with diabetic peripheral angiopathy without gangrene; I50.9 Heart failure, unspecified; D63.1 Anemia in chronic kidney disease; E78.5 Hyperlipidemia, unspecified; J44.9 Chronic obstructive pulmonary disease, unspecified; K21.9 Gastro-esophageal reflux disease without esophagitis; M10.9 Gout, unspecified; F41.9 Anxiety disorder, unspecified; F32.9 Major depressive disorder, single episode, unspecified; Z85.46 Personal history of malignant neoplasm of prostate; Z86.718 Personal history of other venous thrombosis and embolism; Z86.73 Personal history of transient ischemic attack (TIA), and cerebral infarction without residual deficits; Z99.2 Dependence on renal dialysis
CPT/HCPCS: 71045; 80048; 80053; 80202; 82948; 83735; 84100; 85025; 85610; 85730; 87040; 90935; 93990; 96365; 96375; 99285; G8987-GO; G8988-GO; J1580; J1644; J3370; J7050

== ENCOUNTER 2018-03-07 07:39 | Inpatient (IN) ==
--- NOTE | 2018-03-07 08:15 | ED ---
HPI General Chief Complaint: Altered Mental Status Stated Complaint: Poss AMS Time Seen by Provider: 03/07/18 07:59 Source: patient, EMS, RN notes reviewed and old records reviewed Mode of arrival: EMS Limitations: altered mental status History of Present Illness HPI narrative: 83-year-old male presents with altered mental status that is been present over the past couple days and been progressive. Staff at his facility states he has not been taking his lactulose and getting less cooperative. He is also a dialysis patient. Patient tells me his name but denies complaints and is a poor historian. MD complaint: altered mental status Related Data Home Medications Medication Instructions Recorded Confirmed B complex-vitamin C-folic acid 1 tab PO DAILY 03/07/18 03/07/18 [Padmini-Micah] acetaminophen 500 mg PO TID 03/07/18 03/07/18 albuterol sulfate [Ventolin HFA] 1 puff INHALATION QID PRN 03/07/18 03/07/18 allopurinol 100 mg PO DAILY 03/07/18 03/07/18 aspirin [Aspir-81] 81 mg PO DAILY 03/07/18 03/07/18 atorvastatin 10 mg PO DAILY 03/07/18 03/07/18 baclofen 5 mg PO BID 03/07/18 03/07/18 ergocalciferol (vitamin D2) 50,000 unit PO QWEEK 03/07/18 03/07/18 [Vitamin D2] ferrous sulfate 325 mg PO DAILY 03/07/18 03/07/18 fluticasone 2 spray INTRANASAL DAILY 03/07/18 03/07/18 furosemide 40 mg PO DAILY 03/07/18 03/07/18 gabapentin 100 mg PO TID 03/07/18 03/07/18 labetalol 200 mg PO TID 03/07/18 03/07/18 lactulose 20 g PO DAILY 03/07/18 03/07/18 sevelamer carbonate [Renvela] 800 mg PO TID 03/07/18 03/07/18 tramadol 50 mg PO BID 03/07/18 03/07/18 Allergies Allergy/AdvReac Type Severity Reaction Status Date / Time No Known Allergies Allergy Unknown Uncoded 11/10/17 16:10 Review of Systems ROS: all other systems reviewed are negative PMFSH History History Provided By: Medical Record (Hepatic encephalopathy, dialysis patient) Social History Social History Substance History: Unable to Obtain Smoking Status: Unknown if ever smoked How Often Do You Have a Drink Containing Alcohol: Unable to Obtain Recent Travel in [facility] within the Last 8 Weeks: No Recent Out of Country Travel within the Last 8 Weeks: No Exam Narrative Exam Narrative: GENERAL: 83-year-old male in no apparent distress SKIN: Focused skin assessment warm/dry. HEAD: Atraumatic. Normocephalic. EYES: Pupils equal and round. No injection or drainage. ENT: No nasal bleeding or discharge. Mucous membranes pink and moist. NECK: Trachea midline. CARDIOVASCULAR: Regular rate and rhythm. RESPIRATORY: No accessory muscle use. no increased effort GASTROINTESTINAL: Abdomen soft, non-tender, nondistended. MUSCULOSKELETAL: No obvious deformities. No clubbing. No cyanosis. NEUROLOGICAL: Awake and alert to name. Moves all extremities. Normal speech. Course Reevaluation(s) Reevaluation #1: ammonia level is normal, ct head added on Reevaluation #2: ed workup no emergent, will admit for further care of altered mental status in setting of dialysis patient Consultations Consultation #1: dr stack agrees to admit Initial Documented Vital Signs Temperature 97.5 F L 03/07/18 07:54 Pulse Rate 50 L 03/07/18 07:54 Respiratory Rate 19 03/07/18 07:54 Blood Pressure 147/67 H 03/07/18 07:54 Pulse Oximetry 96 03/07/18 07:54 Last Documented Vital Signs Temperature 97.5 F L 03/07/18 07:54 Pulse Rate 53 L 03/07/18 11:21 Respiratory Rate 16 03/07/18 11:21 Blood Pressure 140/61 03/07/18 11:21 Pulse Oximetry 97 03/07/18 11:21 Medical Decision Making [facility] Narrative Medical decision making narrative: will check labs and reevaluate Medical Screen Exam Complete: Yes Emergency Medical Condition: Yes Differential Diagnosis Differential Diagnosis: hepatic encephalopathy, hyponatremia, uti Lab Data Lab results reviewed: Yes I reviewed the patient's lab results. Result diagrams: 03/07/18 08:12 03/07/18 08:12 Lab Results 03/07/18 03/07/18 03/07/18 Range/Units 08:12 08:12 08:12 WBC 7.1 (4.0-11.0) th/mm3 RBC 4.26 L (4.50-5.90) mil/mm3 Hgb 10.8 L (13.0-17.0) gm/dL Hct 35.1 L (39.0-51.0) % MCV 82.4 (80.0-100.0) fL MCH 25.3 L (27.0-34.0) pg MCHC 30.7 L (32.0-36.0) % RDW 20.0 H (11.6-17.2) % Plt Count 272 (150-450) th/mm3 MPV 6.9 L (7.0-11.0) fL Neut % (Auto) 62.8 (16.0-70.0) % Lymph % (Auto) 18.7 (9.0-44.0) % [place] % (Auto) 9.0 H (0.0-8.0) % Eos % (Auto) 8.6 H (0.0-4.0) % Baso % (Auto) 0.9 (0.0-2.0) % Neut # (Auto) 4.5 (1.8-7.7) th/mm3 Lymph # (Auto) 1.3 (1.0-4.8) th/mm3 [place] # (Auto) 0.6 (0.0-0.9) th/mm3 Eos # (Auto) 0.6 H (0.0-0.4) th/mm3 Baso # (Auto) 0.1 (0.0-0.2) th/mm3 WBC Differential . Differential Comment Auto diff final PT (9.8-11.6) sec INR Ratio APTT (24.3-30.1) sec Sodium 141 (136-145) meq/L Potassium 5.2 H (3.5-5.1) meq/L Chloride 103 (98-107) meq/L Carbon Dioxide 24.7 (21.0-32.0) meq/L Anion Gap 13 (5-15) meq/L BUN 45 H (7-18) mg/dL Creatinine 11.42 H* (0.60-1.30) mg/dL Estimated GFR 5 L (>89) mL/min Random Glucose 91 (74-106) mg/dL Calcium 9.6 (8.5-10.1) mg/dL Total Bilirubin 0.5 (0.2-1.0) mg/dL AST 28 (15-37) U/L ALT 24 (12-78) U/L Alkaline Phosphatase 78 (45-117) U/L Ammonia 22 (11-32) mcmol/L Total Creatine Kinase 96 (39-308) U/L Total Protein 7.9 (6.4-8.2) g/dL Albumin 3.7 (3.4-5.0) g/dL 03/07/18 Range/Units 08:54 WBC (4.0-11.0) th/mm3 RBC (4.50-5.90) mil/mm3 Hgb (13.0-17.0) gm/dL Hct (39.0-51.0) % MCV (80.0-100.0) fL MCH (27.0-34.0) pg MCHC (32.0-36.0) % RDW (11.6-17.2) % Plt Count (150-450) th/mm3 MPV (7.0-11.0) fL Neut % (Auto) (16.0-70.0) % Lymph % (Auto) (9.0-44.0) % [place] % (Auto) (0.0-8.0) % Eos % (Auto) (0.0-4.0) % Baso % (Auto) (0.0-2.0) % Neut # (Auto) (1.8-7.7) th/mm3 Lymph # (Auto) (1.0-4.8) th/mm3 [place] # (Auto) (0.0-0.9) th/mm3 Eos # (Auto) (0.0-0.4) th/mm3 Baso # (Auto) (0.0-0.2) th/mm3 WBC Differential Differential Comment PT 12.0 H (9.8-11.6) sec INR 1.2 Ratio APTT 25.7 (24.3-30.1) sec Sodium (136-145) meq/L Potassium (3.5-5.1) meq/L Chloride (98-107) meq/L Carbon Dioxide (21.0-32.0) meq/L Anion Gap (5-15) meq/L BUN (7-18) mg/dL Creatinine (0.60-1.30) mg/dL Estimated GFR (>89) mL/min Random Glucose (74-106) mg/dL Calcium (8.5-10.1) mg/dL Total Bilirubin (0.2-1.0) mg/dL AST (15-37) U/L ALT (12-78) U/L Alkaline Phosphatase (45-117) U/L Ammonia (11-32) mcmol/L Total Creatine Kinase (39-308) U/L Total Protein (6.4-8.2) g/dL Albumin (3.4-5.0) g/dL Imaging Data Attestation: I personally reviewed and interpreted this imaging study as follows : Radiologist's impression: Head CT 03/07/18 09:17 CONCLUSION: 1. No acute findings. . Discharge Plan Discharge Disposition Patient Disposition: 30 Still Patient Discharge Condition Condition: Stable Discharge Details Diagnosis: Altered mental status Physicians Team ED Provider: Zoe Garcia Primary Care Provider: Jacinto Chakraborty V Rxs /Orders / Referrals /Forms Prescriptions: No Action furosemide 40 mg Tablet 40 mg PO DAILY RF: 0 labetalol 200 mg Tablet 200 mg PO TID RF: 0 atorvastatin 10 mg Tablet 10 mg PO DAILY RF: 0 allopurinol 100 mg Tablet 100 mg PO DAILY RF: 0 aspirin [Aspir-81] 81 mg Tablet,Delayed Release (Dr/Ec) 81 mg PO DAILY RF: 0 tramadol 50 mg Tablet 50 mg PO BID RF: 0 baclofen 10 mg Tablet 5 mg PO BID RF: 0 ferrous sulfate 325 mg (65 mg iron) Tablet 325 mg PO DAILY RF: 0 B complex-vitamin C-folic acid [Padmini-Micah] 0.8 mg Tablet 1 tab PO DAILY RF: 0 gabapentin 100 mg Capsule 100 mg PO TID RF: 0 ergocalciferol (vitamin D2) [Vitamin D2] 50,000 unit Capsule 50,000 unit PO QWEEK RF: 0 albuterol sulfate [Ventolin HFA] 90 mcg/actuation Hfa Aerosol Inhaler 1 puff INHALATION QID PRN (Reason: Wheezing) RF: 0 fluticasone 50 mcg/actuation [place],Suspension 2 spray INTRANASAL DAILY RF: 0 acetaminophen 500 mg Capsule 500 mg PO TID RF: 0 lactulose 10 gram/15 mL Solution 20 g PO DAILY RF: 0 sevelamer carbonate [Renvela] 0.8 gram Powder In Packet 800 mg PO TID RF: 0 Discharge Interventions Interventions: Vital Signs Last Done: 03/07/18 11:21 Status ED Status: Admitted Observation Patient
[2018-03-07 08:24] LABS: Baso # (Auto) 0.1 th/mm3 (0.0-0.2); Baso % (Auto) 0.9 % (0.0-2.0); Eos # (Auto) 0.6 th/mm3 (0.0-0.4); Eos % (Auto) 8.6 % (0.0-4.0); Hematocrit 35.1 % (39.0-51.0); Hemoglobin 10.8 gm/dL (13.0-17.0); Lymph # (Auto) 1.3 th/mm3 (1.0-4.8); Lymph % (Auto) 18.7 % (9.0-44.0); Mean Corpuscular Hemoglobin 25.3 pg (27.0-34.0); Mean Corpuscular Volume 82.4 fL (80.0-100.0); Mean Platelet Volume 6.9 fL (7.0-11.0); Mono # (Auto) 0.6 th/mm3 (0.0-0.9); Neut # (Auto) 4.5 th/mm3 (1.8-7.7); Neut % (Auto) 62.8 % (16.0-70.0); Platelet Count 272 th/mm3 (150-450); Red Blood Count 4.26 mil/mm3 (4.50-5.90); White Blood Count 7.1 th/mm3 (4.0-11.0)
[2018-03-07 08:26] LABS: Mean Corpuscular HGB Conc 30.7 % (32.0-36.0)
[2018-03-07 08:41] LABS: Alanine Aminotransferase 24 U/L (12-78); Albumin 3.7 g/dL (3.4-5.0); Alkaline Phosphatase 78 U/L (45-117); Anion Gap 13 meq/L (5-15); Aspartate Aminotransferase 28 U/L (15-37); Blood Urea Nitrogen 45 mg/dL (7-18); Calcium 9.6 mg/dL (8.5-10.1); Carbon Dioxide 24.7 meq/L (21.0-32.0); Chloride 103 meq/L (98-107); Glomerular Filtration Rate 5 mL/min (>89); Glucose,Random 91 mg/dL (74-106); Potassium 5.2 meq/L (3.5-5.1); Sodium 141 meq/L (136-145); Total Protein 7.9 g/dL (6.4-8.2)
[2018-03-07 08:42] LABS: Creatine Kinase 96 U/L (39-308)
[2018-03-07 09:19] LABS: Activated Partial Thrombo Time 25.7 sec (24.3-30.1); INR 1.2 Ratio
--- NOTE | 2018-03-07 10:05 | CT ---
EXAM DATE: 03/07/2018 10:02 AM EDT AGE/SEX: 83 years / Male INDICATIONS: Altered mental status. CLINICAL DATA: This is the patient's initial encounter. Patient reports that signs and symptoms have been present for 1 day and indicates a pain score of 0/10. MEDICAL/SURGICAL HISTORY: None. None. RADIATION DOSE: 56.35 CTDI (mGy) COMPARISON: [facility] [place], MRI BRAIN W/O CONTRAST, 09/28/2017. [facility] [place], CT BRAIN W/O CONTRAST, 09/27/2017. . TECHNIQUE: CT of the head without contrast. Using automated exposure control and adjustment of the mA and/or kV according to patient size, radiation dose was kept as low as reasonably achievable to ob tain optimal diagnostic quality images. DICOM format image data is available electronically for revi ew and comparison. FINDINGS: There is encephalomalacia in the left temporal region with mild ex vacuo dilatation of the left later al ventricle again seen. There is stable white matter disease in the left periventricular white matte r and no signs of acute infarct, hemorrhage, or mass. No fractures are seen. Vascular calcifications are noted. 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 CONCLUSION: 1. No acute findings. . Electronically signed by: Osvaldo Arias MD 03/07/2018 10:04 AM EDT
--- NOTE | 2018-03-07 11:52 | P.HP ---
History of Present Illness Service: Hospitalist Primary Care Physician: Jacinto Chakraborty MD History of Present Illness: This is a 83 yo male snf patient. History obtained form Dr. Garcia ER physician, who obtained hx from [facility], who obtained hx from snf nurse. Over the past few days patient apparently acting more confused. Has been refusing medication, including his lactulose. Today apparently mental status was worse so concern was for so was sent to ER. Ammonia in the ER was 22. He is a dialysis patient, apparently has not missed any dialysis, Cr 11.42. Review of Systems unobtainable due to mental status PMFSH - History History Provided By: Medical Record (Hepatic encephalopathy, dialysis patient) - Tobacco History Smoking Status: Unknown if ever smoked - Alcohol History How Often Do You Have a Drink Containing Alcohol: Unable to Obtain - Substance Use History Substance History: Unable to Obtain - Travel History Recent Travel in the [place] Within the Last 8 Weeks: No Recent Travel Out of the Country Within the Last 8 Weeks: No - Immunization History Tetanus Immunization: Unable to Assess Hx Influenza Vaccine This Season: Unable to Assess Medications and Allergies Active Medications: Active Medications Sodium Chloride (Ns Flush) 2 ml IV.FLUSH PRN PRN PRN Reason: FLUSH AFTER USING IV ACCESS Allergies Allergy/AdvReac Type Severity Reaction Status Date / Time No Known Allergies Allergy Unknown Uncoded 11/10/17 16:10 Home Medications Medication Instructions Recorded Confirmed Type B complex-vitamin C-folic acid 1 tab PO DAILY 03/07/18 03/07/18 History [Padmini-Micah] acetaminophen 500 mg PO TID 03/07/18 03/07/18 History albuterol sulfate [Ventolin HFA] 1 puff INHALATION QID PRN 03/07/18 03/07/18 History allopurinol 100 mg PO DAILY 03/07/18 03/07/18 History aspirin [Aspir-81] 81 mg PO DAILY 03/07/18 03/07/18 History atorvastatin 10 mg PO DAILY 03/07/18 03/07/18 History baclofen 5 mg PO BID 03/07/18 03/07/18 History ergocalciferol (vitamin D2) 50,000 unit PO QWEEK 03/07/18 03/07/18 History [Vitamin D2] ferrous sulfate 325 mg PO DAILY 03/07/18 03/07/18 History fluticasone 2 spray INTRANASAL DAILY 03/07/18 03/07/18 History furosemide 40 mg PO DAILY 03/07/18 03/07/18 History gabapentin 100 mg PO TID 03/07/18 03/07/18 History labetalol 200 mg PO TID 03/07/18 03/07/18 History lactulose 20 g PO DAILY 03/07/18 03/07/18 History sevelamer carbonate [Renvela] 800 mg PO TID 03/07/18 03/07/18 History tramadol 50 mg PO BID 03/07/18 03/07/18 History Exam Vital signs: Vital Signs 03/07/18 07:54 03/07/18 11:21 Temperature 97.5 F L Pulse Rate 50 L 53 L Respiratory Rate 19 16 Blood Pressure 147/67 H 140/61 Pulse Oximetry 96 97 Intake & Output 03/06/18 03/07/18 03/07/18 18:59 06:59 18:59 Weight 76.204 kg - Constitutional no acute distress - Routine HEENT Exam Head: Present: normocephalic. Absent: laceration, hematoma Eye: Present: EOMI, PERRL ENT: Present: mucous membranes moist - Routine Neck Exam Present: supple, full ROM - Routine Chest/Breast/Axilla Exam Chest wall: Absent: tenderness - Routine Respiratory Exam Present: CTA bilaterally. Absent: accessory muscle use - Routine Cardiovascular Exam Present: RRR. Absent: murmur - Routine Abdominal Exam Present: soft, distended. Absent: rebound, guarding Comments: Abdomen is tight - Routine Extremities Exam Absent: cyanosis, edema - Routine Skin Exam Present: intact. Absent: lesions - Routine Neurological Exam Present: alert, altered mental status, moving all extremities, vision grossly intact, hearing grossly intact. Absent: oriented X3, nystagmus, normal speech, tremors Results - Labs CBC & Chem 7: 03/07/18 08:12 03/07/18 08:12 Labs: Laboratory Results - last 24 hr 03/07/18 03/07/18 03/07/18 08:12 08:12 08:12 WBC 7.1 RBC 4.26 L Hgb 10.8 L Hct 35.1 L MCV 82.4 MCH 25.3 L MCHC 30.7 L RDW 20.0 H Plt Count 272 MPV 6.9 L Neut % (Auto) 62.8 Lymph % (Auto) 18.7 [place] % (Auto) 9.0 H Eos % (Auto) 8.6 H Baso % (Auto) 0.9 Neut # (Auto) 4.5 Lymph # (Auto) 1.3 [place] # (Auto) 0.6 Eos # (Auto) 0.6 H Baso # (Auto) 0.1 WBC Differential . Differential Comment Auto diff final PT INR APTT Sodium 141 Potassium 5.2 H Chloride 103 Carbon Dioxide 24.7 Anion Gap 13 BUN 45 H Creatinine 11.42 H* Estimated GFR 5 L Random Glucose 91 Calcium 9.6 Total Bilirubin 0.5 AST 28 ALT 24 Alkaline Phosphatase 78 Ammonia 22 Total Creatine Kinase 96 Total Protein 7.9 Albumin 3.7 03/07/18 08:54 WBC RBC Hgb Hct MCV MCH MCHC RDW Plt Count MPV Neut % (Auto) Lymph % (Auto) [place] % (Auto) Eos % (Auto) Baso % (Auto) Neut # (Auto) Lymph # (Auto) [place] # (Auto) Eos # (Auto) Baso # (Auto) WBC Differential Differential Comment PT 12.0 H INR 1.2 APTT 25.7 Sodium Potassium Chloride Carbon Dioxide Anion Gap BUN Creatinine Estimated GFR Random Glucose Calcium Total Bilirubin AST ALT Alkaline Phosphatase Ammonia Total Creatine Kinase Total Protein Albumin - Imaging Impressions Head CT 03/07/18 09:17 CONCLUSION: 1. No acute findings. . Caprini VTE Risk Assessment Caprini VTE Risk Assessment: No/Low Risk (score <= 1) Caprini Risk Assessment Model: Point Value = 1 Point Value = 2 Point Value = 3 Point Value = 5 Age 41-60 Minor surgery BMI > 25 kg/m2 Swollen legs Varicose veins or History of unexplained or recurrent spontaneous Oral contraceptives or hormone replacement Sepsis (< 1 month) Serious lung disease, including pneumonia (< 1 month) Abnormal pulmonary function Acute myocardial infarction Congestive heart failure (< 1 month) History of inflammatory bowel disease Medical patient at bed rest Age 61-74 Arthroscopic surgery Major open surgery (> 45 min) Laparoscopic surgery (> 45 min) Malignancy Confined to bed (> 72 hours) Immobilizing plaster cast Central venous access Age >= 75 History of VTE Family history of VTE Factor V Leiden Prothrombin [id number] Lupus anticoagulant Anticardiolipin antibodies Elevated serum homocysteine Heparin-induced thrombocytopenia Other congenital or acquired thrombophilia Stroke (< 1 month) Elective arthroplasty Hip, pelvis, or leg fracture Acute spinal cord injury (< 1 month) Prophylaxis Regimen: Total Risk Factor Score Risk Level Prophylaxis Regimen 0-1 Low Early ambulation 2 Moderate Order ONE of the following: *Sequential Compression Device (SCD) *Heparin 5000 units SQ BID 3-4 Higher Order ONE of the following medications: *Heparin 5000 units SQ TID *Enoxaparin/Lovenox 40 mg SQ daily (WT < 150 kg, CrCl > 30 mL/min) *Enoxaparin/Lovenox 30 mg SQ daily (WT < 150 kg, CrCl > 10-29 mL/min) *Enoxaparin/Lovenox 30 mg SQ BID (WT < 150 kg, CrCl > 30 mL/min) AND/OR *Sequential Compression Device (SCD) 5 or more Highest Order ONE of the following medications: *Heparin 5000 units SQ TID (Preferred with Epidurals) *Enoxaparin/Lovenox 40 mg SQ daily (WT < 150 kg, CrCl > 30 mL/min) *Enoxaparin/Lovenox 30 mg SQ daily (WT < 150 kg, CrCl > 10-29 mL/min) *Enoxaparin/Lovenox 30 mg SQ BID (WT < 150 kg, CrCl > 30 mL/min) AND *Sequential Compression Device (SCD) Assessment and Plan - Plan 83 yo dialysis patient who residents in snf sent by [facility] for progressive AMS - UA ordered - UDS ordered - Labs reviewed, wnl - EKG reviewed, sinus tonja - TSH - RPR - B12 Dialysis Patient - K 5.2 - Bun/Cr 45/11.42 - Hb stable - consult nephrology Holding home medication: labetolol for bradycardia Bilat SCDs Code Status: Full Discussed Condition With: Dr. Garcia Discharge Planning: D/C back to nursing facility pending further workup
[2018-03-07] MEDS: Gabapentin 100 MG Capsule PO SCH ×2 (13:00→18:26)
[2018-03-07 13:06] LABS: Thyroid Stimulating Hormone 0.676 uIU/mL (0.358-3.740)
[2018-03-07] MEDS ORDERED: Acetaminophen 325 MG Tablet PO PRN (15:44)
[2018-03-07] MEDS ORDERED: Sod Chloride 0.9% Inj 1,000 ML OTHER PRN ×2 (15:44)
[2018-03-07] MEDS ORDERED: Sod Chloride 0.9% Inj 1,000 ML IV.CONT PRN (15:44)
[2018-03-07] MEDS ORDERED: Gelatin 12 MM/7 MM Topical Foam TOPICAL PRN (15:44)
--- NOTE | 2018-03-07 21:41 | ECG ---
Date Performed: 03/07/2018 Time Performed: 08:35:45 PTAGE: 83 years EKG: SINUS BRADYCARDIA BORDERLINE LEFT AXIS DEVIATION NONSPECIFIC INTRAVENTRICULAR CONDUCTION DE LAY ABNORMAL ECG PREVIOUS TRACING : 09/27/2017 22.54 No significant change from previous tracing noted. DOCTOR: Rod Ortiz Interpretating Date/Time 03/07/2018 21:39:56
[2018-03-08] MEDS: Baclofen 10 MG Tablet PO SCH ×3 (01:15→22:55)
[2018-03-08 05:38] LABS: Baso # (Auto) 0.1 th/mm3 (0.0-0.2); Eos # (Auto) 0.7 th/mm3 (0.0-0.4); Eos % (Auto) 8.7 % (0.0-4.0); Hematocrit 38.1 % (39.0-51.0); Hemoglobin 11.7 gm/dL (13.0-17.0); Mean Corpuscular Volume 81.2 fL (80.0-100.0); Mean Platelet Volume 6.8 fL (7.0-11.0); Mono # (Auto) 0.4 th/mm3 (0.0-0.9); Mono % (Auto) 5.3 % (0.0-8.0); Neut # (Auto) 5.5 th/mm3 (1.8-7.7); Platelet Count 297 th/mm3 (150-450); Red Blood Count 4.69 mil/mm3 (4.50-5.90); Red Cell Distribution Width 19.9 % (11.6-17.2); White Blood Count 7.6 th/mm3 (4.0-11.0)
[2018-03-08 06:13] LABS: Calcium 9.7 mg/dL (8.5-10.1); Carbon Dioxide 21.9 meq/L (21.0-32.0); Potassium 5.2 meq/L (3.5-5.1)
[2018-03-08 06:16] LABS: Mean Corpuscular HGB Conc 30.8 % (32.0-36.0)
[2018-03-08 07:15] LABS: Acanthocytes Occ; Ovalocytes 1+; Platelet Estimate Normal (Normal); Platelet Morphology Normal (Normal)
[2018-03-08] MEDS: Gabapentin 100 MG Capsule PO SCH ×3 (09:00→19:42)
--- NOTE | 2018-03-08 11:44 | P.CONNP ---
<Elizabeth Brandt - Last Filed: 03/08/18 11:57> History of Present Illness Service: Nephrology Consult date: 03/08/18 Requesting Physician: Kanwal Manzo Reason for Consult: Known ESRD Primary Care Provider: Jacinto Chakraborty MD Chief Complaint: AMS History of Present Illness: The patient is an 83 yo AA male who is known to our services for ESRD on HD. He was brought in last evening at the request of his NH as they felt he was more confused. Did not miss any HD, however, I was informed that his past 2 sessions were cut short 2/2 to transportation issues with his NH. The patient himself if quite altered today and is not able to provide any meaningful history. Typical HD TTS. Last outpatient HD 03/05/18 Review of Systems unobtainable due to mental status PMFSH - History History Provided By: Medical Record (Hepatic encephalopathy, dialysis patient) - Medical History Medical History: Medical History (Last Updated 03/08/18 @ 11:59 by KYLE Moreno) AVF (arteriovenous fistula) CHF (congestive heart failure) Dementia ESRD (end stage renal disease) on dialysis History of CVA (cerebrovascular accident) Hypertension Peripheral vascular disease Type 2 diabetes mellitus with other diabetic kidney complication - Tobacco History Second Hand Smoke Exposure: No Smoking Status: Never smoker - Alcohol History How Often Do You Have a Drink Containing Alcohol: Never - Substance Use History Substance History: No History of Abuse, Unable to Obtain - Travel History Recent Travel in the [place] Within the Last 8 Weeks: No Recent Travel Out of the Country Within the Last 8 Weeks: No - Immunization History Tetanus Immunization: Unable to Assess Hx Influenza Vaccine This Season: Unable to Assess Medications and Allergies Allergies Allergy/AdvReac Type Severity Reaction Status Date / Time No Known Allergies Allergy Unknown Uncoded 11/10/17 16:10 Home Medications Medication Instructions Recorded Confirmed Type B complex-vitamin C-folic acid 1 tab PO DAILY 03/07/18 03/07/18 History [Padmini-Micah] acetaminophen 500 mg PO TID 03/07/18 03/07/18 History albuterol sulfate [Ventolin HFA] 1 puff INHALATION QID PRN 03/07/18 03/07/18 History allopurinol 100 mg PO DAILY 03/07/18 03/07/18 History aspirin [Aspir-81] 81 mg PO DAILY 03/07/18 03/07/18 History atorvastatin 10 mg PO DAILY 03/07/18 03/07/18 History baclofen 5 mg PO BID 03/07/18 03/07/18 History ergocalciferol (vitamin D2) 50,000 unit PO QWEEK 03/07/18 03/07/18 History [Vitamin D2] ferrous sulfate 325 mg PO DAILY 03/07/18 03/07/18 History fluticasone 2 spray INTRANASAL DAILY 03/07/18 03/07/18 History furosemide 40 mg PO DAILY 03/07/18 03/07/18 History gabapentin 100 mg PO TID 03/07/18 03/07/18 History labetalol 200 mg PO TID 03/07/18 03/07/18 History lactulose 20 g PO DAILY 03/07/18 03/07/18 History sevelamer carbonate [Renvela] 800 mg PO TID 03/07/18 03/07/18 History tramadol 50 mg PO BID 03/07/18 03/07/18 History Active Medications: Active Medications Acetaminophen (Tylenol) 650 mg PO UNSCH PRN PRN Reason: SEE LABEL COMMENTS Atorvastatin Calcium (Lipitor) 10 mg PO DAILY [facility] Baclofen (Lioresal) 5 mg PO BID [facility] Last Admin: 03/08/18 01:15 Dose: Not Given Clonidine HCl (Catapres) 0.1 mg PO UNSCH PRN PRN Reason: SEE LABEL COMMENTS Diphenhydramine HCl (Benadryl) 25 mg PO UNSCH PRN PRN Reason: SEE LABEL COMMENTS Epoetin Buddy (Epogen Inj) 4,000 unit IV.PUSH UNSCH PRN PRN Reason: SEE LABEL COMMENTS Gabapentin (Neurontin) 100 mg PO TID [facility] Last Admin: 03/07/18 18:26 Dose: Not Given Gelatin (Gelfoam 12 Mm/7 Mm Topical) 1 foam TOPICAL PRN PRN PRN Reason: help stop bleeding from site Heparin Sodium (Porcine) (Heparin Inj) 8,000 units OTHER WITH DIALYSIS PRN PRN Reason: for machine prime Albumin Human (Flexbumin 25% Inj) 100 mls @ 60 mls/hr IV.SIG WITH DIALYSIS PRN PRN Reason: hypotension / volume replace Sodium Chloride (Ns Inj) 1,000 mls @ 0 mls/hr OTHER .Q0M PRN PRN Reason: for prime and rinse back Sodium Chloride (Ns Inj) 1,000 mls @ 200 mls/hr OTHER .Q5H PRN PRN Reason: for dialyzer flush PRN Sodium Chloride (Ns Inj) 1,000 mls @ 0 mls/hr IV.CONT .Q0M PRN PRN Reason: hypotension / volume replace Nitroglycerin (Nitrostat Sl) 0.4 mg SL Q5M PRN PRN Reason: CHEST PAIN Ondansetron HCl (Zofran Inj) 4 mg IV.PUSH UNSCH PRN PRN Reason: NAUSEA OR VOMITING Sodium Chloride (Ns Flush) 2 ml IV.FLUSH PRN PRN PRN Reason: FLUSH AFTER USING IV ACCESS Exam Vital signs: Vital Signs 03/07/18 13:43 03/07/18 20:00 03/08/18 00:00 Temperature 97.3 F L 97.2 F L Pulse Rate 53 L 51 L Respiratory Rate 17 15 14 Blood Pressure 135/64 156/66 H Pulse Oximetry 96 96 03/08/18 04:00 03/08/18 08:00 03/08/18 10:10 Temperature 97.4 F L 98.1 F Pulse Rate 56 L 60 Respiratory Rate 18 18 Blood Pressure 154/93 H 163/77 H Pulse Oximetry 97 97 92 L Intake & Output 03/07/18 03/08/18 03/08/18 18:59 06:59 18:59 Intake Total 0 / 0 50 / 50 Balance 0 / 0 50 / 50 Weight 76.204 kg 74.1 kg Intake: Oral 0 / 0 50 / 50 Other: # Incontinent Voids 1 - Constitutional no acute distress - Routine Neck Exam Present: supple - Routine Respiratory Exam Present: CTA bilaterally - Routine Cardiovascular Exam Present: RRR, S1, S2 - Routine Abdominal Exam Present: soft - Routine Extremities Exam Absent: edema - Routine Skin Exam Present: intact - Routine Neurological Exam Present: alert, fasciculations (in LUE). Absent: oriented X3 Results - Lab Results 03/08/18 05:15 03/08/18 05:15 Most recent lab results Calcium 9.7 mg/dL (8.5-10.1) 03/08/18 05:15 Assessment and Plan - Assessment (1) ESRD (end stage renal disease) on dialysis Code(s): N18.6 - End stage renal disease; Z99.2 - Dependence on renal dialysis Status: Acute Plan: Seen during HD today. Some issues with venous cannulation, but was able to re- stick with adequate flows. Outpatient baseline SCr typically ~10. Was made aware of shortened outpatient tx today and uncertain if uremia is playing role in altered state. Will ordered for additional HD tomorrow and again on to keep on TTS schedule. Medication list reviewed. Agree with holding Gabapentin and Baclofen at the present. CT reviewed. Defer to primary is additional screening if required. Will follow with labs in the AM. Medications should be adjusted for the patient's ESRD. Avoid gadolinium. (2) Altered mental status Code(s): R41.82 - Altered mental status, unspecified Status: Acute Plan: Etiology unclear. Additional HD tomorrow. (3) Hypertension Code(s): I10 - Essential (primary) hypertension Status: Acute (4) Diabetes mellitus Code(s): E11.9 - Type 2 diabetes mellitus without complications Status: Acute <Marivel Arciniega - Last Filed: 03/10/18 09:27> History of Present Illness Primary Care Provider: Jacinto Chakraborty MD [facility] - Medical History Medical History: Medical History (Last Updated 03/08/18 @ 11:59 by KYLE Moreno) AVF (arteriovenous fistula) CHF (congestive heart failure) Dementia ESRD (end stage renal disease) on dialysis History of CVA (cerebrovascular accident) Hypertension Peripheral vascular disease Type 2 diabetes mellitus with other diabetic kidney complication Medications and Allergies Active Medications: Active Medications Acetaminophen (Tylenol) 650 mg PO UNSCH PRN PRN Reason: SEE LABEL COMMENTS Atorvastatin Calcium (Lipitor) 10 mg PO DAILY [facility] Last Admin: 03/09/18 13:29 Dose: 10 mg Baclofen (Lioresal) 5 mg PO BID [facility] Last Admin: 03/09/18 20:41 Dose: 5 mg Clonidine HCl (Catapres) 0.1 mg PO UNSCH PRN PRN Reason: SEE LABEL COMMENTS Diphenhydramine HCl (Benadryl) 25 mg PO UNSCH PRN PRN Reason: SEE LABEL COMMENTS Epoetin Buddy (Epogen Inj) 4,000 unit IV.PUSH UNSCH PRN PRN Reason: SEE LABEL COMMENTS Gabapentin (Neurontin) 100 mg PO TID [facility] Last Admin: 03/09/18 18:43 Dose: 100 mg Gelatin (Gelfoam 12 Mm/7 Mm Topical) 1 foam TOPICAL PRN PRN PRN Reason: help stop bleeding from site Heparin Sodium (Porcine) (Heparin Inj) 8,000 units OTHER WITH DIALYSIS PRN PRN Reason: for machine prime Heparin Sodium (Porcine) (Heparin Inj) 5,000 units SQ Q12HR [facility] Last Admin: 03/09/18 20:41 Dose: 5,000 units Albumin Human (Flexbumin 25% Inj) 100 mls @ 60 mls/hr IV.SIG WITH DIALYSIS PRN PRN Reason: hypotension / volume replace Sodium Chloride (Ns Inj) 1,000 mls @ 0 mls/hr OTHER .Q0M PRN PRN Reason: for prime and rinse back Sodium Chloride (Ns Inj) 1,000 mls @ 200 mls/hr OTHER .Q5H PRN PRN Reason: for dialyzer flush PRN Sodium Chloride (Ns Inj) 1,000 mls @ 0 mls/hr IV.CONT .Q0M PRN PRN Reason: hypotension / volume replace Ceftriaxone Sodium 1,000 mg/ (Sodium Chloride) 100 mls @ 200 mls/hr IV.SIG Q24H [facility] Last Infusion: 03/09/18 20:00 Dose: Infused Nitroglycerin (Nitrostat Sl) 0.4 mg SL Q5M PRN PRN Reason: CHEST PAIN Ondansetron HCl (Zofran Inj) 4 mg IV.PUSH UNSCH PRN PRN Reason: NAUSEA OR VOMITING Sodium Chloride (Ns Flush) 2 ml IV.FLUSH PRN PRN PRN Reason: FLUSH AFTER USING IV ACCESS Exam Vital signs: Vital Signs 03/09/18 16:00 03/09/18 20:00 03/10/18 00:00 Temperature 97.9 F 98.2 F 98.1 F Pulse Rate 95 H 96 H 97 H Respiratory Rate 18 16 17 Blood Pressure 130/60 109/59 L 117/58 L Pulse Oximetry 96 96 93 L 03/10/18 04:00 Temperature 98.2 F Pulse Rate 80 Respiratory Rate 16 Blood Pressure 103/58 L Pulse Oximetry 96 Intake & Output 03/09/18 03/10/18 03/10/18 18:59 06:59 18:59 Intake Total 600 / 600 300 / 300 Output Total 1000 / 1000 Balance -400 / -400 300 / 300 Weight 72.2 kg Intake: IV 100 / 100 Rocephin Inj 1,000 MG In NS Inj 100 / 100 100 ML @ 200 mls/hr IV.SIG Q24H [facility] Rx#:[id number] Oral 600 / 600 200 / 200 Output: Hemodialysis Amount 1000 / 1000 Other: # Voids 0 Results - Lab Results 03/10/18 06:00 03/10/18 06:00 Most recent lab results Calcium 9.9 mg/dL (8.5-10.1) 03/10/18 06:00 Phosphorus 6.1 mg/dL (2.5-4.9) H 03/10/18 06:00 Assessment and Plan - Assessment (1) ESRD (end stage renal disease) on dialysis Code(s): N18.6 - End stage renal disease; Z99.2 - Dependence on renal dialysis Status: Acute (2) Altered mental status Code(s): R41.82 - Altered mental status, unspecified Status: Acute (3) Hypertension Code(s): I10 - Essential (primary) hypertension Status: Acute (4) Diabetes mellitus Code(s): E11.9 - Type 2 diabetes mellitus without complications Status: Acute - Attending Attestation The exam, history, and the medical decision-making described in the above note were completed with the assistance of the AMADOU. I reviewed and agree with the findings presented. I attest that I had a [id number] encounter with the patient on the same day, and personally performed and documented my assessment and findings in the medical record.
--- NOTE | 2018-03-08 15:49 | P.PN ---
Subjective Interval history: Follow-up visit for altered mental status, chronic kidney disease on hemodialysis. Patient is seen and examined after dialysis today, appears to be talking on the phone however no one is on the other line. He is awake, alert, oriented to self. He denies any pain, shortness of breath, headache or dizziness. Follows commands intermittently, inappropriate at times with commands. Swallow evaluation performed by nurse at bedside, will start renal diet and consult speech therapist. Physical Exam Vital signs: Vital Signs 03/07/18 20:00 03/08/18 00:00 03/08/18 04:00 Temperature 97.3 F L 97.2 F L 97.4 F L Pulse Rate 53 L 51 L 56 L Respiratory Rate 15 14 18 Blood Pressure 135/64 156/66 H 154/93 H Pulse Oximetry 96 96 97 03/08/18 08:00 03/08/18 09:00 03/08/18 10:10 Temperature 98.1 F Pulse Rate 60 52 L Respiratory Rate 18 Blood Pressure 163/77 H Pulse Oximetry 97 92 L 03/08/18 12:00 Temperature Pulse Rate 68 Respiratory Rate Blood Pressure Pulse Oximetry Intake & Output 03/07/18 03/08/18 03/08/18 18:59 06:59 18:59 Intake Total 0 / 0 50 / 50 Output Total 1999 Balance 0 / 0 50 / 50 -1999 Weight 76.204 kg 74.1 kg Intake: Oral 0 / 0 50 / 50 Output: Hemodialysis Amount 1999 Other: # Incontinent Voids 1 Narrative: GENERAL: Well-developed, well-nourished elderly -[place] male in no acute distress. SKIN: Warm and dry. HEAD: Atraumatic. Normocephalic. EYES: Pupils equal and round. No scleral icterus. No injection or drainage. ENT: No nasal bleeding or discharge. Mucous membranes pink and moist. NECK: Trachea midline. CARDIOVASCULAR: Regular rate and rhythm with 2/6 murmur present. RESPIRATORY: No accessory muscle use. Clear to auscultation. Breath sounds equal bilaterally. GASTROINTESTINAL: Abdomen soft, non-tender, nondistended. Positive bowel sounds. MUSCULOSKELETAL: Extremities without clubbing, cyanosis, or edema. No obvious deformities. NEUROLOGICAL: Awake and alert, oriented to self, diffusely confused no facial droop, speech is clear.. No obvious cranial nerve deficits. Motor grossly within normal limits. 4/5 muscle strength in the arms and legs. Normal speech. PSYCHIATRIC: Inappropriate insight and judgment normal. Results - Labs CBC & Chem 7: 03/08/18 05:15 03/08/18 05:15 Laboratory Results - last 24 hr 03/07/18 03/08/18 03/08/18 13:15 05:15 05:15 WBC 7.6 RBC 4.69 Hgb 11.7 L Hct 38.1 L MCV 81.2 MCH 25.0 L MCHC 30.8 L RDW 19.9 H Plt Count 297 MPV 6.8 L Prelim Diff (Auto) Slide review pending Neut % (Auto) 72.0 H Lymph % (Auto) 13.0 [place] % (Auto) 5.3 Eos % (Auto) 8.7 H Baso % (Auto) 1.0 Neut # (Auto) 5.5 Lymph # (Auto) 1.0 [place] # (Auto) 0.4 Eos # (Auto) 0.7 H Baso # (Auto) 0.1 WBC Differential . Diff Scan Auto diff confirmed Differential Comment . Platelet Estimate Normal Platelet Morphology Normal Ovalocytes 1+ H Acanthocytes (Spur) Occ H Sodium 140 Potassium 5.2 H Chloride 104 Carbon Dioxide 21.9 Anion Gap 14 BUN 57 H Creatinine 13.14 H* D Estimated GFR 4 L Random Glucose 73 L Calcium 9.7 RPR Nonreactive Assessment and Plan - Plan 83 yo dialysis patient who residents [facility] sent by [facility] for progressive AMS, unaware of baseline. -Head CT negative for acute finding, no focal neuro deficit, neuro checks per nursing -UA not obtained, patient possibly anuric, discussed with Dr. Johnson, possible underlying UTI due to increase in neutrophils, start IV ceftriaxone. - UDS not obtained - Labs reviewed, wnl with the exception of creatinine secondary CKD, mild hyper kalemia - EKG reviewed, sinus tonja - TSH stable - RPR negative - B12 high -If mentation not improved after starting ceftriaxone consider neurology consult. Dialysis Patient - K 5.2 - Bun/Cr 45/11.42 - Hb stable -Nephrology following, appreciate assistance - s/p HD today with liters removed Holding home medication: labetolol for bradycardia -Heart rate improved in the 60s-80s Bilat SCDs, subcu heparin Discussed Condition With: Discussed with patient, RN, Dr. Johnson. Discharge Planning: Will likely go back to jail once medically improved, so far continues to be confused, started on IV antibiotics for possible underlying UTI.
[2018-03-08] MEDS: Heparin - SQ 10,000 UNITS/ML Vial SQ SCH (22:55)
[2018-03-09 08:32] LABS: Calcium 9.4 mg/dL (8.5-10.1); Carbon Dioxide 27.9 meq/L (21.0-32.0); Potassium 4.7 meq/L (3.5-5.1)
--- NOTE | 2018-03-09 09:14 | P.PNNP ---
Subjective Interval history: Pt seen during HD today. Much more alert and conversive. Is oriented to place and person. Physical Exam Vital signs: Vital Signs 03/08/18 10:10 03/08/18 12:00 03/08/18 16:00 Temperature 98.0 F Pulse Rate 68 85 Respiratory Rate 18 Blood Pressure 111/58 L Pulse Oximetry 92 L 98 03/08/18 20:00 03/09/18 00:00 03/09/18 00:14 Temperature 99.5 F 99.6 F Pulse Rate 83 87 89 Respiratory Rate 19 18 Blood Pressure 131/63 133/60 Pulse Oximetry 96 94 L 03/09/18 03:44 03/09/18 04:00 Temperature 98.6 F Pulse Rate 80 84 Respiratory Rate 19 Blood Pressure 134/63 Pulse Oximetry 93 L Intake & Output 03/08/18 03/09/18 03/09/18 18:59 06:59 18:59 Intake Total 360 / 360 580 / 580 Output Total 1999 Balance -1640 / -1640 580 / 580 Weight 72.1 kg Intake: IV 100 / 100 Rocephin Inj 1,000 MG In NS Inj 100 / 100 100 ML @ 200 mls/hr IV.SIG Q24H [facility] Rx#:[id number] Oral 360 / 360 480 / 480 Output: Hemodialysis Amount 1999 - Constitutional no acute distress - Routine HEENT Exam Head: Present: normocephalic - Routine Neck Exam Present: supple - Routine Respiratory Exam Present: CTA bilaterally - Routine Cardiovascular Exam Present: RRR, S1, S2 - Routine Abdominal Exam Present: soft - Routine Extremities Exam Absent: edema - Routine Skin Exam Present: intact - Routine Neurological Exam Present: alert Assessment and Plan - Assessment (1) ESRD (end stage renal disease) on dialysis Code(s): N18.6 - End stage renal disease; Z99.2 - Dependence on renal dialysis Status: Acute Plan: Pt seen during 2nd HD today. Appears much more alert today. SCr back to his baseline. Uncertain if azotemia was contributing to his altered mental status. Continue HD TTS as per regular outpatient schedule. soda flaker believes he may have access stenosis. Will set up as outpatient for evaluation. Medications should be adjusted for the patient's ESRD. Avoid gadolinium. (2) Altered mental status Code(s): R41.82 - Altered mental status, unspecified Status: Acute Plan: Etiology unclear. Additional HD tomorrow. (3) Hypertension Code(s): I10 - Essential (primary) hypertension Status: Acute (4) Diabetes mellitus Code(s): E11.9 - Type 2 diabetes mellitus without complications Status: Acute
[2018-03-09] MEDS: Gabapentin 100 MG Capsule PO SCH ×3 (13:15→18:43)
[2018-03-09] MEDS: Heparin - SQ 10,000 UNITS/ML Vial SQ SCH ×2 (13:28→20:41)
[2018-03-09] MEDS: Baclofen 10 MG Tablet PO SCH ×2 (13:29→20:41)
--- NOTE | 2018-03-09 14:51 | P.PN ---
Subjective Interval history: Follow-up for visit for altered mental status, possible underlying UTI. Patient seen and examined this morning following hemodialysis. He is awake, alert, oriented to self and following simple commands. Appears pleasant and smiles not oriented to time or place. Physical Exam Vital signs: Vital Signs 03/08/18 16:00 03/08/18 20:00 03/09/18 00:00 Temperature 98.0 F 99.5 F 99.6 F Pulse Rate 85 83 87 Respiratory Rate 18 19 18 Blood Pressure 111/58 L 131/63 133/60 Pulse Oximetry 98 96 94 L 03/09/18 00:14 03/09/18 03:44 03/09/18 04:00 Temperature 98.6 F Pulse Rate 89 80 84 Respiratory Rate 19 Blood Pressure 134/63 Pulse Oximetry 93 L 03/09/18 08:00 03/09/18 09:00 Temperature 99.2 F Pulse Rate 82 87 Respiratory Rate 18 Blood Pressure 136/65 Pulse Oximetry 94 L Intake & Output 03/08/18 03/09/18 03/09/18 18:59 06:59 18:59 Intake Total 360 / 360 580 / 580 Output Total 1999 1000 / 1000 Balance -1640 / -1640 580 / 580 -1000 / -1000 Weight 72.1 kg Intake: IV 100 / 100 Rocephin Inj 1,000 MG In NS Inj 100 / 100 100 ML @ 200 mls/hr IV.SIG Q24H [facility] Rx#:[id number] Oral 360 / 360 480 / 480 Output: Hemodialysis Amount 1999 1000 / 1000 Narrative: GENERAL: Well-developed, well-nourished elderly -[place] male in no acute distress. SKIN: Warm and dry. HEAD: Atraumatic. Normocephalic. EYES: Pupils equal and round. No scleral icterus. No injection or drainage. ENT: No nasal bleeding or discharge. Mucous membranes pink and moist. NECK: Trachea midline. CARDIOVASCULAR: Regular rate and rhythm with 2/6 murmur present. RESPIRATORY: No accessory muscle use. Clear to auscultation. Breath sounds equal bilaterally. GASTROINTESTINAL: Abdomen soft, non-tender, nondistended. Positive bowel sounds. MUSCULOSKELETAL: Extremities without clubbing, cyanosis, or edema. No obvious deformities. NEUROLOGICAL: Awake and alert, oriented to self, diffusely confused no facial droop, speech is clear. No obvious cranial nerve deficits. Motor grossly within normal limits. 4/5 muscle strength in the arms and legs. Normal speech. PSYCHIATRIC: Inappropriate insight and judgment normal. Results - Labs CBC & Chem 7: 03/08/18 05:15 03/09/18 07:08 Laboratory Results - last 24 hr 03/09/18 03/09/18 03/09/18 07:08 11:41 12:09 Sodium 140 Potassium 4.7 Chloride 97 L Carbon Dioxide 27.9 Anion Gap 15 BUN 43 H Creatinine 10.11 H* D Estimated GFR 6 L POC Glucose 94 97 Random Glucose 101 Calcium 9.4 Assessment and Plan - Plan 83 yo dialysis patient who residents in residential sent by [facility] for progressive AMS, unaware of baseline. -Head CT negative for acute finding, no focal neuro deficit, neuro checks per nursing -UA not obtained, patient possibly anuric, discussed with Dr. Johnson, possible underlying UTI due to increase in neutrophils, start IV ceftriaxone. - UDS not obtained -BUN and creatinine elevated secondary to end-stage renal disease, potassium back to normal. - EKG, sinus tonja - TSH stable - RPR negative - B12 high -Currently on ceftriaxone, low grade temps overnight, chest x-ray for today ordered. 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
--- NOTE | 2018-03-09 15:36 | XR ---
EXAM DATE: 03/09/2018 3:28 PM EDT AGE/SEX: 83 years / Male INDICATIONS: Shortness of breath CLINICAL DATA: This is the patient's initial encounter. Patient reports that signs and symptoms have been present for 1 day and indicates a pain score of Nonresponsive. MEDICAL/SURGICAL HISTORY: Hypertension. Renal failure, acute. Diabetes. None. COMPARISON: [facility] – [place], [place]INGLE AP, 11/10/2017. . FINDINGS: Interval removal of the left IJ dialysis catheter. Redemonstration of a vascular stent overlying the proximal right clavicle. No new focal pleural or parenchymal opacities. Cardiomediastinal contours ar e stable. Remainder of the exam is unchanged. CONCLUSION: 1. No acute abnormality or significant interval change. Electronically signed by: Luis Fernando Mann MD 03/09/2018 3:35 PM EDT
[2018-03-10 07:21] LABS: Baso % (Auto) 0.4 % (0.0-2.0); Eos # (Auto) 0.5 th/mm3 (0.0-0.4); Eos % (Auto) 4.9 % (0.0-4.0); Hematocrit 40.5 % (39.0-51.0); Hemoglobin 12.8 gm/dL (13.0-17.0); Lymph # (Auto) 1.5 th/mm3 (1.0-4.8); Lymph % (Auto) 16.1 % (9.0-44.0); Mean Corpuscular HGB Conc 31.7 % (32.0-36.0); Mean Corpuscular Hemoglobin 25.4 pg (27.0-34.0); Mean Corpuscular Volume 80.2 fL (80.0-100.0); Mono % (Auto) 11.1 % (0.0-8.0); Neut # (Auto) 6.2 th/mm3 (1.8-7.7); Neut % (Auto) 67.5 % (16.0-70.0); Platelet Count 230 th/mm3 (150-450); Red Blood Count 5.05 mil/mm3 (4.50-5.90); Red Cell Distribution Width 20.2 % (11.6-17.2); White Blood Count 9.2 th/mm3 (4.0-11.0)
[2018-03-10 07:55] LABS: Albumin 3.7 g/dL (3.4-5.0); Calcium 9.9 mg/dL (8.5-10.1); Carbon Dioxide 29.3 meq/L (21.0-32.0); Phosphorus 6.1 mg/dL (2.5-4.9)
--- NOTE | 2018-03-10 09:32 | P.PNNP ---
Subjective Interval history: Patient appears to be more alert today. Not orientated to place or time however. Physical Exam Vital signs: Vital Signs 03/09/18 16:00 03/09/18 20:00 03/10/18 00:00 Temperature 97.9 F 98.2 F 98.1 F Pulse Rate 95 H 96 H 97 H Respiratory Rate 18 16 17 Blood Pressure 130/60 109/59 L 117/58 L Pulse Oximetry 96 96 93 L 03/10/18 04:00 Temperature 98.2 F Pulse Rate 80 Respiratory Rate 16 Blood Pressure 103/58 L Pulse Oximetry 96 Intake & Output 03/09/18 03/10/18 03/10/18 18:59 06:59 18:59 Intake Total 600 / 600 300 / 300 Output Total 1000 / 1000 Balance -400 / -400 300 / 300 Weight 72.2 kg Intake: IV 100 / 100 Rocephin Inj 1,000 MG In NS Inj 100 / 100 100 ML @ 200 mls/hr IV.SIG Q24H [facility] Rx#:[id number] Oral 600 / 600 200 / 200 Output: Hemodialysis Amount 1000 / 1000 Other: # Voids 0 Narrative: GENERAL: No verbal complaints. Was seen during his hemodialysis treatment today and was tolerating same. SKIN: Warm and dry. HEAD: Normocephalic. EYES: No scleral icterus. No injection or drainage. NECK: Supple, trachea midline. No JVD or lymphadenopathy. CARDIOVASCULAR: Regular rate and rhythm without murmurs, gallops, or rubs. RESPIRATORY: Breath sounds equal bilaterally. No accessory muscle use. GASTROINTESTINAL: Abdomen soft, non-tender, nondistended. MUSCULOSKELETAL: No cyanosis, or edema. BACK: Nontender without obvious deformity. No CVA tenderness. Assessment and Plan - Assessment (1) ESRD (end stage renal disease) on dialysis Code(s): N18.6 - End stage renal disease; Z99.2 - Dependence on renal dialysis Status: Acute Plan: Patient more alert today with extra dialysis session. I suspect he may have been slightly uremic related to shorten dialysis sessions as an outpatient transportation issues. Will discuss the situation with the dialysis facility. Also will have his dialysis shunt checked as an outpatient to determine whether or not there is a stenosis. I have also reduced his Neurontin to 100 mg twice daily as there is a potential interaction between Neurontin and baclofen. Discharge planning okay from renal point of view. Medications should be adjusted for the patient's ESRD. Avoid gadolinium. (2) Altered mental status Code(s): R41.82 - Altered mental status, unspecified Status: Acute Plan: . (3) Hypertension Code(s): I10 - Essential (primary) hypertension Status: Acute (4) Diabetes mellitus Code(s): E11.9 - Type 2 diabetes mellitus without complications Status: Acute
[2018-03-10] MEDS: Heparin - SQ 10,000 UNITS/ML Vial SQ SCH ×2 (13:30→20:40)
[2018-03-10] MEDS: Baclofen 10 MG Tablet PO SCH ×2 (13:31→20:40)
[2018-03-10] MEDS: Gabapentin 100 MG Capsule PO SCH ×2 (13:31→20:40)
--- NOTE | 2018-03-10 14:25 | P.PN ---
Subjective Interval history: Follow-up visit for altered mental status and end-stage renal disease. Patient is seen and examined later this afternoon resting comfortably in bed, appears to be in no acute distress. Patient is oriented to self however. Asking to further assess if he is oriented to place and time becomes agitated and begins cursing. He denies any belly pain, nausea, vomiting, cough or shortness of breath. Later in the afternoon patient is observed walking in his room, when we attempt to enter his room patient has placed bedside recliner as well as linen been in front of door and is actively preventing us from entering his room. Security was called to assist with opening his room patient assisted back to bed. Call placed to [facility] and spoke to Ana Maria who cares for patient 5 days a week. She reports that patient is normally alert and oriented and able to perform mostly all of his ADLs by himself. She reports that patient had progressively become confused and refusing medications which she first noticed over this past weekend. Call placed to give on who is patient's daughter to provide an update on his status. We discussed his behavior and further workup on altered mental status, discussed psychiatry consult. Daughter reports that [facility] staff. By tomorrow to evaluate patient to see if he will be a candidate to return back to facility. Her questions answered, thankful for call. Physical Exam Vital signs: Vital Signs 03/09/18 16:00 03/09/18 20:00 03/10/18 00:00 Temperature 97.9 F 98.2 F 98.1 F Pulse Rate 95 H 96 H 97 H Respiratory Rate 18 16 17 Blood Pressure 130/60 109/59 L 117/58 L Pulse Oximetry 96 96 93 L 03/10/18 04:00 03/10/18 08:00 Temperature 98.2 F 97.8 F Pulse Rate 80 83 Respiratory Rate 16 17 Blood Pressure 103/58 L 113/53 L Pulse Oximetry 96 93 L Intake & Output 03/09/18 03/10/18 03/10/18 18:59 06:59 18:59 Intake Total 600 / 600 300 / 300 Output Total 1000 / 1000 1000 / 1000 Balance -400 / -400 300 / 300 -1000 / -1000 Weight 72.2 kg Intake: IV 100 / 100 Rocephin Inj 1,000 MG In NS Inj 100 / 100 100 ML @ 200 mls/hr IV.SIG Q24H [place] Rx#:[id number] Oral 600 / 600 200 / 200 Output: Hemodialysis Amount 1000 / 1000 1000 / 1000 Other: # Voids 0 Date of Last Bowel Movement 03/09/18 Narrative: GENERAL: Well-developed, well-nourished elderly -Turk[place] male in no acute distress. SKIN: Warm and dry. HEAD: Atraumatic. Normocephalic. EYES: Pupils equal and round. No scleral icterus. No injection or drainage. ENT: No nasal bleeding or discharge. Mucous membranes pink and moist. NECK: Trachea midline. CARDIOVASCULAR: Regular rate and rhythm with 2/6 murmur present. RESPIRATORY: No accessory muscle use. Clear to auscultation. Breath sounds equal bilaterally. GASTROINTESTINAL: Abdomen soft, non-tender, nondistended. Positive bowel sounds. MUSCULOSKELETAL: Extremities without clubbing, cyanosis, or edema. No obvious deformities. NEUROLOGICAL: Awake and alert, oriented to self, diffusely confused no facial droop, speech is clear. No obvious cranial nerve deficits. Motor grossly within normal limits. 5/5 muscle strength in the arms and legs. Normal speech. PSYCHIATRIC: Inappropriate insight and judgment normal. Results - Labs CBC & Chem 7: 03/10/18 06:00 03/10/18 06:00 Laboratory Results - last 24 hr 03/10/18 03/10/18 03/10/18 06:00 06:00 12:10 WBC 9.2 RBC 5.05 Hgb 12.8 L Hct 40.5 MCV 80.2 MCH 25.4 L MCHC 31.7 L RDW 20.2 H Plt Count 230 MPV 7.0 Neut % (Auto) 67.5 Lymph % (Auto) 16.1 [facility] [facility] % (Auto) 11.1 H Eos % (Auto) 4.9 H Baso % (Auto) 0.4 Neut # (Auto) 6.2 Lymph # (Auto) 1.5 [facility] [facility] # (Auto) 1.0 H Eos # (Auto) 0.5 H Baso # (Auto) 0.0 WBC Differential . Differential Comment Auto diff final Sodium 139 Potassium 4.0 Chloride 95 L Carbon Dioxide 29.3 Anion Gap 15 BUN 31 H Creatinine 7.67 H Estimated GFR 8 L POC Glucose 102 Random Glucose 90 Calcium 9.9 Phosphorus 6.1 H Albumin 3.7 - Imaging Impressions Chest X-Ray 03/09/18 00:00 CONCLUSION: 1. No acute abnormality or significant interval change. Assessment and Plan - Plan 83 yo dialysis patient who residents in detention sent by [facility] for progressive AMS, unaware of baseline. -Head CT negative for acute finding, no focal neuro deficit, neuro checks per nursing -UA not obtained, patient possibly anuric, discussed with Dr. Johnson, possible underlying UTI due to increase in neutrophils, start IV ceftriaxone. Order to obtain UA via straight cath. - UDS not obtained -BUN and creatinine elevated secondary to end-stage renal disease, potassium back to normal. - EKG, sinus tonja - TSH stable - RPR negative - B12 high -Currently on ceftriaxone, afebrile overnight and today, chest x-ray negative. -Behavior changes during the afternoon per nursing report, ? If this is versus new onset of dementia. -Psychiatry consulted, greatly appreciate recommendations. Dialysis Patient - Hb stable -Nephrology following, appreciate assistance - s/p HD today with 1L removed Holding home medication: labetolol for bradycardia -Heart rate improved in the 60s-80s -HR and BP stable Bilat SCDs, subcu heparin Discussed Condition With: Discussed with patient, RN, daughter [facility] Romeo Rodgers. Discharge Planning: [facility] staff to evaluate patient tomorrow. Ongoing altered mental status, psychiatry consulted for further evaluation.
[2018-03-11] MEDS: Gabapentin 100 MG Capsule PO SCH ×2 (09:53→20:29)
[2018-03-11] MEDS: Heparin - SQ 10,000 UNITS/ML Vial SQ SCH ×2 (09:53→20:29)
[2018-03-11] MEDS: Baclofen 10 MG Tablet PO SCH ×2 (09:53→20:29)
--- NOTE | 2018-03-11 12:54 | P.PNNP ---
Subjective Interval history: Patient awake but does appear confused. Otherwise had no verbal complaints. Physical Exam Vital signs: Vital Signs 03/10/18 20:00 03/11/18 00:00 Temperature 97.7 F 97.5 F L Pulse Rate 81 81 Respiratory Rate 16 16 Blood Pressure 119/59 L 127/58 L Pulse Oximetry 96 96 Intake & Output 03/10/18 03/11/18 03/11/18 18:59 06:59 18:59 Output Total 1600 / 1600 Balance -1600 / -1600 Weight 70.4 kg Output: Urine/Stool Mix 600 / 600 Hemodialysis Amount 1000 / 1000 Other: Date of Last Bowel Movement 03/09/18 Narrative: GENERAL: Not in respiratory distress. On way to CT scan. SKIN: Warm and dry. HEAD: Normocephalic. EYES: No scleral icterus. No injection or drainage. NECK: Supple, trachea midline. CARDIOVASCULAR: Regular rate and rhythm without murmurs, gallops, or rubs. RESPIRATORY: Breath sounds equal bilaterally. No accessory muscle use. GASTROINTESTINAL: Abdomen soft, non-tender, nondistended. MUSCULOSKELETAL: No cyanosis, or edema. Assessment and Plan - Assessment (1) ESRD (end stage renal disease) on dialysis Code(s): N18.6 - End stage renal disease; Z99.2 - Dependence on renal dialysis Status: Acute Plan: Continue hemodialysis Wednesday and Saturdays. Discharge planning as per hospitalist. Medications should be adjusted for the patient's ESRD. Avoid gadolinium. (2) Altered mental status Code(s): R41.82 - Altered mental status, unspecified Status: Acute Plan: Evaluation in progress. . (3) Hypertension Code(s): I10 - Essential (primary) hypertension Status: Acute (4) Diabetes mellitus Code(s): E11.9 - Type 2 diabetes mellitus without complications Status: Acute
--- NOTE | 2018-03-11 13:49 | CT ---
EXAM DATE: 03/11/2018 1:05 PM EDT AGE/SEX: 83 years / Male INDICATIONS: Altered mental status. CLINICAL DATA: This is the patient's initial encounter. Patient reports that signs and symptoms have been present for 1 day and indicates a pain score of Nonresponsive. MEDICAL/SURGICAL HISTORY: Dementia. Hypertension. Cerebrovascular disease. None. RADIATION DOSE: 37.85 CTDI (mGy) COMPARISON: [facility], CT HEAD W/O CONTRAST, 03/07/2018. . TECHNIQUE: CT of the head without contrast. Using automated exposure control and adjustment of the mA and/or kV according to patient size, radiation dose was kept as low as reasonably achievable to ob tain optimal diagnostic quality images. DICOM format image data is available electronically for revi ew and comparison. FINDINGS: Cerebrum: Encephalomalacia in the left temporal lobe similar to previous exam. Bilateral basal gangl ia lacunar infarcts. Moderate diffuse cerebral atrophy. Moderate periventricular white matter hypoden sities. The ventricles are normal for degree of atrophy. No evidence of midline shift, mass lesion, h emorrhage or acute infarction. No extraaxial fluid collections are seen. Posterior Fossa: The cerebellum and brainstem are intact. The 4th ventricle is midline. The cerebe llopontine angle is unremarkable. Extracranial: The visualized portion of the orbits is intact. Skull: The calvaria is intact. No evidence of skull fracture. CONCLUSION: 1. No acute intracranial abnormality or significant interval change. . Electronically signed by: Luis Fernando Mann MD 03/11/2018 1:48 PM EDT
--- NOTE | 2018-03-11 14:13 | P.CONPSY ---
Provisional Diagnosis Admission Date: March 07, 2018 12:13 [place] I.: Dementia without behavioral disturbance History of Present Illness Service: Medicine Primary Care Provider: Jacinto Chakraborty MD Chief Complaint: AMS History of Present Illness: The patient is a 83-year-old Nigerian man, domiciled in group home, [facility], with known psychiatric history, history obtained form Dr. Garcia ER physician, who obtained hx from [facility], who obtained hx from group home nurse. Over the past few days patient apparently acting more confused. Has been refusing medication, including his lactulose. Today apparently mental status was worse so concern was for so was sent to ER. Ammonia in the ER was 22. He is a dialysis patient, apparently has not missed any dialysis, Cr 11.42.Head CT negative for acute finding, no focal neuro deficit, neuro checks. BUN and creatinine elevated secondary to end-stage renal disease, potassium back to normal. - EKG, sinus tonja - TSH stable - RPR negative - B12 high Collateral information from [facility], Ms. Dowling who is her health aide, was contacted. She tells me that she saw the patient this morning and the patient is not a baseline. She said that at baseline the patient is very talkative, he is oriented 3, he is a patient who eats independently, who back independently, who takes his medications and he is very aware of his surroundings. However, today on psychiatric evaluation I find a patient that is no engaging in a conversation, he very talks, answer some of my questions, but his completely disoriented in time and place. He did tell me that he is from [place], he told me that he is in a good mood, he denies suicidal and homicidal ideation, denies visual and auditory hallucinations. But when I asked him to open his eyes, he opened his mouth. When I asked him to stretch my hands that he open his mouth. Is unable to repeat 3 words after me. Unable to provide any significant information for the psychiatric assessment. At times the patient verbalized words that are completely incoherent. PMF - History History Provided By: Medical Record (Hepatic encephalopathy, dialysis patient) - Medical History Medical History: Medical History (Last Reviewed 03/09/18 @ 08:39 by Pb Costa) AVF (arteriovenous fistula) CHF (congestive heart failure) Dementia ESRD (end stage renal disease) on dialysis History of CVA (cerebrovascular accident) Hypertension Peripheral vascular disease Type 2 diabetes mellitus with other diabetic kidney complication - Tobacco History Second Hand Smoke Exposure: No Smoking Status: Never smoker - Alcohol History How Often Do You Have a Drink Containing Alcohol: Never - Substance Use History Substance History: No History of Abuse, Unable to Obtain - Travel History Recent Travel in the [place] Within the Last 8 Weeks: No Recent Travel Out of the Country Within the Last 8 Weeks: No - Immunization History Tetanus Immunization: Unable to Assess Hx Influenza Vaccine This Season: Unable to Assess Medications and Allergies Active Medications: Active Medications Acetaminophen (Tylenol) 650 mg PO UNSCH PRN PRN Reason: SEE LABEL COMMENTS Atorvastatin Calcium (Lipitor) 10 mg PO DAILY [facility] Last Admin: 03/11/18 09:53 Dose: 10 mg Baclofen (Lioresal) 5 mg PO BID [facility] Last Admin: 03/11/18 09:53 Dose: 5 mg Clonidine HCl (Catapres) 0.1 mg PO UNSCH PRN PRN Reason: SEE LABEL COMMENTS Diphenhydramine HCl (Benadryl) 25 mg PO UNSCH PRN PRN Reason: SEE LABEL COMMENTS Epoetin Buddy (Epogen Inj) 4,000 unit IV.PUSH UNSCH PRN PRN Reason: SEE LABEL COMMENTS Gabapentin (Neurontin) 100 mg PO BID [facility] Last Admin: 03/11/18 09:53 Dose: 100 mg Gelatin (Gelfoam 12 Mm/7 Mm Topical) 1 foam TOPICAL PRN PRN PRN Reason: help stop bleeding from site Heparin Sodium (Porcine) (Heparin Inj) 8,000 units OTHER WITH DIALYSIS PRN PRN Reason: for machine prime Heparin Sodium (Porcine) (Heparin Inj) 5,000 units SQ Q12HR [facility] Last Admin: 03/11/18 09:53 Dose: 5,000 units Albumin Human (Flexbumin 25% Inj) 100 mls @ 60 mls/hr IV.SIG WITH DIALYSIS PRN PRN Reason: hypotension / volume replace Sodium Chloride (Ns Inj) 1,000 mls @ 0 mls/hr OTHER .Q0M PRN PRN Reason: for prime and rinse back Sodium Chloride (Ns Inj) 1,000 mls @ 200 mls/hr OTHER .Q5H PRN PRN Reason: for dialyzer flush PRN Sodium Chloride (Ns Inj) 1,000 mls @ 0 mls/hr IV.CONT .Q0M PRN PRN Reason: hypotension / volume replace Ceftriaxone Sodium 1,000 mg/ (Sodium Chloride) 100 mls @ 200 mls/hr IV.SIG Q24H [facility] Last Admin: 03/10/18 18:40 Dose: Not Given Sodium Chloride (Ns Inj) 1,000 mls @ 40 mls/hr IV.CONT .Q24H [facility] Nitroglycerin (Nitrostat Sl) 0.4 mg SL Q5M PRN PRN Reason: CHEST PAIN Ondansetron HCl (Zofran Inj) 4 mg IV.PUSH UNSCH PRN PRN Reason: NAUSEA OR VOMITING Sodium Chloride (Ns Flush) 2 ml IV.FLUSH PRN PRN PRN Reason: FLUSH AFTER USING IV ACCESS Allergies Allergy/AdvReac Type Severity Reaction Status Date / Time No Known Allergies Allergy Unknown Uncoded 11/10/17 16:10 Home Medications Medication Instructions Recorded Confirmed Type B complex-vitamin C-folic acid 1 tab PO DAILY 03/07/18 03/07/18 History [Padmini-Micah] acetaminophen 500 mg PO TID 03/07/18 03/07/18 History albuterol sulfate [Ventolin HFA] 1 puff INHALATION QID PRN 03/07/18 03/07/18 History allopurinol 100 mg PO DAILY 03/07/18 03/07/18 History aspirin [Aspir-81] 81 mg PO DAILY 03/07/18 03/07/18 History atorvastatin 10 mg PO DAILY 03/07/18 03/07/18 History baclofen 5 mg PO BID 03/07/18 03/07/18 History ergocalciferol (vitamin D2) 50,000 unit PO QWEEK 03/07/18 03/07/18 History [Vitamin D2] ferrous sulfate 325 mg PO DAILY 03/07/18 03/07/18 History fluticasone 2 spray INTRANASAL DAILY 03/07/18 03/07/18 History furosemide 40 mg PO DAILY 03/07/18 03/07/18 History gabapentin 100 mg PO TID 03/07/18 03/07/18 History labetalol 200 mg PO TID 03/07/18 03/07/18 History lactulose 20 g PO DAILY 03/07/18 03/07/18 History sevelamer carbonate [Renvela] 800 mg PO TID 03/07/18 03/07/18 History tramadol 50 mg PO BID 03/07/18 03/07/18 History Exam Vital signs: Vital Signs 03/10/18 20:00 03/11/18 00:00 Temperature 97.7 F 97.5 F L Pulse Rate 81 81 Respiratory Rate 16 16 Blood Pressure 119/59 L 127/58 L Pulse Oximetry 96 96 Intake & Output 03/10/18 03/11/18 03/11/18 18:59 06:59 18:59 Output Total 1600 / 1600 Balance -1600 / -1600 Weight 70.4 kg Output: Urine/Stool Mix 600 / 600 Hemodialysis Amount 1000 / 1000 Other: Date of Last Bowel Movement 03/09/18 Mental Status Examination Appearance: Appropriate Consciousness: Alert Orientation: Person Speech: Incoherent Fund of Knowledge: Inadequate, Poor Attention and Concentration: Easily distracted Memory: Impaired Mood: Appropriate Affect: Blunt Thought Content: Thought blocking Delusion Type: None Suicidal Ideation: No Suicidal Plan: No Suicidal Intention: No Homicidal Ideation: No Homicidal Plan: No Homicidal Intention: No Insight: Poor Judgment: Poor Assessment and Plan - Assessment (1) Delirium Code(s): R41.0 - Disorientation, unspecified Status: Acute - Plan Plan: Estimated LOS: [] days On psychiatric evaluation today I find a patient that is difficult to engage in a conversation, he is alert, but does not respond to most of my questions. He seems to be disorganized, disoriented, unable to follow simple commands. He does tell me that he is in a good mood, that he is from [place], and denies suicidal and homicidal ideation. He is completely disoriented in time and place , unable to repeat 3 words. No agitation or aggressive behavior are present at this moment. As per collateral information for group home the patient is out of baseline, this is a patient that about a week ago was taking care of himself , eating by himself, going to the bathroom himself, taking his medications and aware of his surroundings. I do not see at this moment any psychiatric reason to admit the patient. Patient seems to be delirious most probably related with underlying medical conditions. He is incoherent speech made me wonder if the patient could have an ischemic stroke even though CT is negative, any other neurological condition, I would consult neurology. No psychotropics indicated at this moment. Justification for Continued Inpatient Stay: No admission indicated.
[2018-03-11 14:20] LABS: Baso % (Auto) 0.4 % (0.0-2.0); Eos # (Auto) 0.3 th/mm3 (0.0-0.4); Eos % (Auto) 3.2 % (0.0-4.0); Hematocrit 40.5 % (39.0-51.0); Hemoglobin 13.2 gm/dL (13.0-17.0); Lymph # (Auto) 1.9 th/mm3 (1.0-4.8); Lymph % (Auto) 18.8 % (9.0-44.0); Mean Corpuscular HGB Conc 32.6 % (32.0-36.0); Mean Corpuscular Hemoglobin 26.2 pg (27.0-34.0); Mean Corpuscular Volume 80.2 fL (80.0-100.0); Mean Platelet Volume 6.8 fL (7.0-11.0); Mono # (Auto) 0.9 th/mm3 (0.0-0.9); Neut % (Auto) 68.6 % (16.0-70.0); Platelet Count 206 th/mm3 (150-450); Red Blood Count 5.05 mil/mm3 (4.50-5.90); Red Cell Distribution Width 20.1 % (11.6-17.2); White Blood Count 10.2 th/mm3 (4.0-11.0)
[2018-03-11] MEDS: Sod Chloride 0.9% Inj 1,000 ML IV.CONT SCH (14:31)
[2018-03-11 14:36] LABS: Activated Partial Thrombo Time 40.8 sec (24.3-30.1); INR 1.1 Ratio; Prothrombin Time 10.7 sec (9.8-11.6)
[2018-03-11 15:01] LABS: Troponin I 0.07 ng/mL (0.02-0.05)
[2018-03-11 15:14] LABS: CKMB Percent 0.4 % (0.0-4.0); Creatine Kinase MB 4.9 ng/mL (0.5-3.6)
--- NOTE | 2018-03-11 17:19 | P.PN ---
Subjective Interval history: Follow-up visit for altered mental status, end-stage renal disease. Patient seen and examined earlier this morning resting in bed, appears to be in no acute distress. He is awake, alert, and oriented only to self. Patient able to follow commands and denies any pain, shortness of breath or headache. Today patient appears slightly more confused, concerns from speech therapist regarding ability to swallow liquids. Speech therapist also noted patient had drooling when provided with liquids. Case was discussed with Dr. Walters, patient was once again seen and examined at bedside. Physical Exam Vital signs: Vital Signs 03/10/18 20:00 03/11/18 00:00 03/11/18 08:00 Temperature 97.7 F 97.5 F L 97.2 F L Pulse Rate 81 81 78 Respiratory Rate 16 16 17 Blood Pressure 119/59 L 127/58 L 143/67 H Pulse Oximetry 96 96 96 03/11/18 12:00 Temperature 97.7 F Pulse Rate 80 Respiratory Rate 17 Blood Pressure 136/60 Pulse Oximetry 94 L Intake & Output 03/10/18 03/11/18 03/11/18 18:59 06:59 18:59 Output Total 1600 / 1600 Balance -1600 / -1600 Weight 70.4 kg Output: Urine/Stool Mix 600 / 600 Hemodialysis Amount 1000 / 1000 Other: Date of Last Bowel Movement 03/09/18 Narrative: GENERAL: Well-developed, well-nourished elderly -[place] male in no acute distress. SKIN: Warm and dry. HEAD: Atraumatic. Normocephalic. EYES: Pupils equal and round. No scleral icterus. No injection or drainage. ENT: No nasal bleeding or discharge. Mucous membranes pink and moist. NECK: Trachea midline. CARDIOVASCULAR: Regular rate and rhythm with 2/6 murmur present. RESPIRATORY: No accessory muscle use. Clear to auscultation. Breath sounds equal bilaterally. GASTROINTESTINAL: Abdomen soft, non-tender, nondistended. Positive bowel sounds. MUSCULOSKELETAL: Extremities without clubbing, cyanosis, or edema. No obvious deformities. NEUROLOGICAL: Awake and alert, oriented to self, diffusely confused ? left facial droop, speech is clear with accident. Motor grossly within normal limits. 5/5 muscle strength in the arms and legs. Normal speech. PSYCHIATRIC: Inappropriate insight and judgment normal. Results - Labs CBC & Chem 7: 03/11/18 13:56 03/10/18 06:00 Laboratory Results - last 24 hr 03/11/18 03/11/18 03/11/18 05:09 13:56 13:56 WBC 10.2 RBC 5.05 Hgb 13.2 Hct 40.5 MCV 80.2 MCH 26.2 L MCHC 32.6 RDW 20.1 H Plt Count 206 MPV 6.8 L Neut % (Auto) 68.6 Lymph % (Auto) 18.8 Hendricks % (Auto) 9.0 H Eos % (Auto) 3.2 Baso % (Auto) 0.4 Neut # (Auto) 7.0 Lymph # (Auto) 1.9 Hendricks # (Auto) 0.9 Eos # (Auto) 0.3 Baso # (Auto) 0.0 WBC Differential . Differential Comment Auto diff final PT 10.7 INR 1.1 APTT 40.8 H Fibrinogen 499 H Ammonia Less than 10 L Total Creatine Kinase CK-MB (CK-2) CK-MB (CK-2) % Troponin I Blood Type Antibody Screen 03/11/18 03/11/18 13:56 13:56 WBC RBC Hgb Hct MCV MCH MCHC RDW Plt Count MPV Neut % (Auto) Lymph % (Auto) Hendricks % (Auto) Eos % (Auto) Baso % (Auto) Neut # (Auto) Lymph # (Auto) Hendricks # (Auto) Eos # (Auto) Baso # (Auto) WBC Differential Differential Comment PT INR APTT Fibrinogen Ammonia Total Creatine Kinase 1196 H CK-MB (CK-2) 4.9 H CK-MB (CK-2) % 0.4 Troponin I 0.07 H Blood Type A Positive Antibody Screen Negative - Imaging Impressions Head CT 03/11/18 12:01 CONCLUSION: 1. No acute intracranial abnormality or significant interval change. . Assessment and Plan - Plan 83 yo dialysis patient who residents in skilled nursing sent by [facility] for progressive AMS, normally patient A&O and able to preform normal ADLs on his own. AMS Dysphagia ? CVA -Initial head CT negative for acute finding -UA not obtained, patient possibly anuric, discussed with Dr. Johnson, possible underlying UTI due to increase in neutrophils, treated with IV ceftriaxone. -BUN and creatinine elevated secondary to end-stage renal disease, potassium back to normal. - EKG, sinus tonja - TSH stable - RPR negative - B12 high -Discontinue ceftriaxone since patient's mentation has not improved. -Behavior changes, ? If this is owners versus new onset of dementia. -Psychiatry consulted, greatly appreciate recommendations. Do not feel this is psych related. -? CVA due to increased altered mental status, dysphasia, facial droop. -CT of head negative, check MRI -Consult placed to neurology, greatly appreciate assistance -Neurochecks, head of bed flat, goal of systolic BP greater than 150. Start NS at 40 mL's per hour given CHF and end-stage renal disease. Monitor for fluid overload. - Patient not on home Tramadol, consider D/C Baclofen for possible cause of AMS as well. - Speech following, PT/OT Dialysis Patient - Hb stable -Nephrology following, appreciate assistance - s/p HD yesterday with 1 L removed Elevated total CK -Most likely secondary to agitation especially given episode yesterday. -Patient on gentle hydration, he is also being followed by nephrology for dialysis. -Minimally elevated troponin, likely secondary to end-stage renal disease. Patient with no complaints of pain. We will trend in 6 hours. Holding home medication: labetolol for bradycardia -Heart rate improved in the 60s-80s -HR and BP stable Bilat SCDs, subcu heparin Discussed Condition With: Discussed with RN and Discharge Planning: [place] staff from [facility] came by to assess patient to see if he would be able to return back. Chano will be speaking to her boss regarding her assessment. Patient still being worked up for AMS, neurology consulted.
--- NOTE | 2018-03-11 17:46 | MR ---
EXAM DATE: 03/11/2018 5:38 PM EDT AGE/SEX: 83 years / Male INDICATIONS: CVA. CLINICAL DATA: This is the patient's initial encounter. Patient reports that signs and symptoms have been present for 1 day and indicates a pain score of 0/10. MEDICAL/SURGICAL HISTORY: Dementia. Congestive heart failure. Hypertension. . AVF left right arm surgery. COMPARISON: No prior exams available for comparison. TECHNIQUE: Multiplanar, multisequence examination of the brain was performed without contrast. FINDINGS: Cerebrum: There is an old left-sided insular infarct with encephalomalacia and gliosis extending sup eriorly into the left parietal lobe. Scattered periventricular white matter lesions are present consi stent with chronic small vessel ischemic change. The remainder of the ho-white matter demonstrates normal morphology and signal. No abnormal intra-axial or extra-axial fluid collections. No evidence o f mass. Posterior Fossa: The cerebellum and brainstem are intact. The 4th ventricle is midline. The cerebel lopontine angle is unremarkable. The cerebellar tonsils are normal in position. Diffusion Imaging: No focal areas of restricted diffusion are seen. No evidence of acute infarction . Extracranial: The visualized portions of the orbits and paranasal sinuses are unremarkable. CONCLUSION: 1. 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 No acute abnormality is seen. Electronically signed by: Elizabeth Luong MD 03/11/2018 5:44 PM EDT
[2018-03-12 08:35] LABS: Calcium 9.3 mg/dL (8.5-10.1); Carbon Dioxide 28.5 meq/L (21.0-32.0); Potassium 4.8 meq/L (3.5-5.1)
[2018-03-12 09:10] LABS: CKMB Percent 0.3 % (0.0-4.0); Creatine Kinase MB 2.8 ng/mL (0.5-3.6)
[2018-03-12] MEDS: Heparin 10,000 UNITS/10 ML Vial (for IV use) OTHER PRN (11:11)
--- NOTE | 2018-03-12 11:42 | MB ---
cc: Maribel Alba MD DATE: 03/12/2018 This is an 83-year-old. REASON FOR CONSULTATION: Possible stroke. HISTORY OF PRESENT ILLNESS: This is a gentleman that came into the hospital on 03/07/2018, apparently from the skilled nursing, acting confused, refusing medication. Mental status is of concern. He is on dialysis. Neurology was asked to see him for possible TIA or stroke-like symptoms. Normally, I am told he is alert and oriented, does all his ADLs. He has become progressively confused, refusing medicine. Psychiatry had seen him as well, not sure if he is at baseline now. He is currently in dialysis. PHYSICAL EXAMINATION: VITAL SIGNS: Temperature 98, pulse 87, respiratory rate 18, blood pressure 132/63, saturating at 98% on room air. NECK: Supple. I do not appreciate any carotid bruits. HEART: Regular. NEUROLOGIC: He is awake and alert, knows himself, very hypophonic. I do not see any significant facial droop. He smiles for me, sticks his tongue out. His mouth is very dry. Tongue is very dry. He seems to move everything fairly equal with fairly intact strength. DTRs 1+. Toes withdraws. He does not follow for cerebellar. Gait cannot be assessed during dialysis. LABORATORY DATA: Yesterday's labs, 03/11/2018, showed normal white count, normal hemoglobin, platelets 206,000. Chemistries: His BUN is 52, creatinine 9.89, GFR of 6, glucose is 93. CKs 1078. His troponin is elevated, likely due to his renal problems. B12 is 1255. Serology RPR is nonreactive. Ammonia is less than 10. Microbiology is not done. IMAGING: He had an MRI of the brain on 03/11/2018. 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 Nothing acute. He had a CT done that did not show anything acute, either. IMPRESSION: Possible transient ischemic attack, certainly in a patient with risk factors, hypertension, diabetes, end-stage renal disease. If no contraindication, he should be at least on the baby aspirin. I will also get an EEG just to make sure he has not had any seizure-like events given that he has a history of a stroke. An echo is on order. I do not have those results. In any case, continue current care, and further recommendations will be made if needed. MD Eli Braden , 10:58 AM , 11:05 AM
--- NOTE | 2018-03-12 14:13 | P.PNNP ---
Subjective Interval history: Patient trying to verbalize but not understandable. Awake. Physical Exam Vital signs: Vital Signs 03/11/18 20:00 03/12/18 00:00 03/12/18 08:00 Temperature 98 F 97.9 F 98.0 F Pulse Rate 64 60 87 Respiratory Rate 16 16 18 Blood Pressure 147/67 H 145/69 H 132/63 Pulse Oximetry 92 L 91 L 98 Intake & Output 03/11/18 03/12/18 03/12/18 18:59 06:59 18:59 Output Total 1500 / 1500 Balance -1500 / -1500 Weight 70.5 kg Output: Hemodialysis Amount 1500 / 1500 Other: Date of Last Bowel Movement 03/09/18 Narrative: GENERAL: Patient grabbed onto my forearm and initially would not let go. Not responding appropriately to questions or simple commands. SKIN: Warm and dry. HEAD: Normocephalic. EYES: No scleral icterus. No injection or drainage. NECK: Supple, trachea midline. No JVD CARDIOVASCULAR: Regular rate and rhythm without murmurs, gallops, or rubs. RESPIRATORY: Breath sounds equal bilaterally. No accessory muscle use. GASTROINTESTINAL: Abdomen soft, non-tender, nondistended. MUSCULOSKELETAL: No cyanosis, or edema. Assessment and Plan - Assessment (1) ESRD (end stage renal disease) on dialysis Code(s): N18.6 - End stage renal disease; Z99.2 - Dependence on renal dialysis Status: Acute Plan: Completed dialysis today without difficulty. Continue hemodialysis Wednesday and Saturdays. Neurological evaluation in progress. Discharge planning as per hospitalist. Medications should be adjusted for the patient's ESRD. Avoid gadolinium. (2) Altered mental status Code(s): R41.82 - Altered mental status, unspecified Status: Acute Plan: Evaluation in progress. . (3) Hypertension Code(s): I10 - Essential (primary) hypertension Status: Acute (4) Diabetes mellitus Code(s): E11.9 - Type 2 diabetes mellitus without complications Status: Acute
--- NOTE | 2018-03-12 14:32 | P.PNIM ---
Subjective Interval history: Follow-up for altered mental status. Patient is awake and alert and able to track, but is nonverbal. Per nursing patient was agitated earlier this week and did grab another physician today. Patient is reportedly anuric. Physical Exam Vital signs: Vital Signs 03/11/18 20:00 03/12/18 00:00 03/12/18 08:00 Temperature 98 F 97.9 F 98.0 F Pulse Rate 64 60 87 Respiratory Rate 16 16 18 Blood Pressure 147/67 H 145/69 H 132/63 Pulse Oximetry 92 L 91 L 98 Intake & Output 03/11/18 03/12/18 03/12/18 18:59 06:59 18:59 Output Total 1500 / 1500 Balance -1500 / -1500 Weight 155 lb 6.814 oz Output: Hemodialysis Amount 1500 / 1500 Other: Date of Last Bowel Movement 03/09/18 Narrative: GENERAL: Well-developed well-nourished. In no acute distress. SKIN: Warm and dry. No lesions noted. CARDIOVASCULAR: Regular rate and rhythm. No murmur appreciated. RESPIRATORY: No accessory muscle use. Clear to auscultation. Breath sounds equal bilaterally. GASTROINTESTINAL: Abdomen soft, non-tender, nondistended. Bowel sounds x4. MUSCULOSKELETAL: No obvious deformities. No clubbing or cyanosis. No edema. NEUROLOGICAL: Awake and alert. Moves upper and lower extremities spontaneously. Does not speak. PSYCHIATRIC: Inappropriate mood and affect. Results - Labs CBC & Chem 7: 03/11/18 13:56 03/12/18 05:33 Laboratory Results - last 24 hr 03/11/18 03/11/18 03/11/18 13:56 13:56 13:56 PT 10.7 INR 1.1 APTT 40.8 H Fibrinogen 499 H Sodium Potassium Chloride Carbon Dioxide Anion Gap BUN Creatinine Estimated GFR POC Glucose Random Glucose Calcium Total Creatine Kinase 1196 H CK-MB (CK-2) 4.9 H CK-MB (CK-2) % 0.4 Troponin I 0.07 H Blood Type A Positive Antibody Screen Negative 03/11/18 03/12/18 03/12/18 20:09 05:33 10:11 PT INR APTT Fibrinogen Sodium 141 Potassium 4.8 D Chloride 96 L Carbon Dioxide 28.5 Anion Gap 17 H BUN 52 H Creatinine 9.89 H Estimated GFR 6 L POC Glucose 93 Random Glucose 71 L Calcium 9.3 Total Creatine Kinase 1078 H CK-MB (CK-2) 2.8 CK-MB (CK-2) % 0.3 Troponin I 0.06 H Blood Type Antibody Screen - Imaging Impressions Head MRI 03/11/18 00:00 CONCLUSION: 1. 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 No acute abnormality is seen. Assessment and Plan - Plan 83 yo dialysis patient who residents in [facility] sent by [facility] for progressive AMS, normally patient A&O and able to preform normal ADLs on his own. 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 No signs of infectious etiology, however anuric so can't check UA, was treated with ceftriaxone with no improvement, antibiotic discontinued. TSH stable. RPR negative. B12 high -Psychiatry consulted, no acute psychiatric intervention indicated at this time , recommend neurology consultation. Consider reconsultation if neuro workup remains negative. -Neurology consulted, recommended aspirin for possible TIA and checking echo and EEG -Patient not on home Tramadol, consider D/C Baclofen for possible cause of AMS as well. -Speech following, PT/OT ESRD on HD -Nephrology following, appreciate assistance Elevated total CK Rhabdomyolysis secondary to agitation? No fevers -Patient on gentle hydration, he is also being followed by nephrology for dialysis. Holding home medication: labetolol for bradycardia -Heart rate improved in the 60s-80s -HR and BP stable Bilat SCDs, subcu heparin Discharge Planning: Currently awaiting results of neuro workup
[2018-03-12] MEDS: Gabapentin 100 MG Capsule PO SCH ×2 (16:09→21:46)
[2018-03-12] MEDS: Baclofen 10 MG Tablet PO SCH ×2 (16:09→21:46)
[2018-03-12] MEDS: Heparin - SQ 10,000 UNITS/ML Vial SQ SCH ×2 (16:43→21:46)
[2018-03-12] MEDS: Sod Chloride 0.9% Inj 1,000 ML IV.CONT SCH (19:22)
--- NOTE | 2018-03-12 21:01 | MG ---
cc: Maribel Alba MD AGE: [age] years old. EEG NUMBER: [id number]. REFERRING PHYSICIAN: Maribel Alba MD INDICATIONS: In room 1716, awake, drowsy, asleep with photic only. Change in mental status, left-sided infarct, old on MRI. History of end-stage renal disease, dementia, on dialysis, diabetic. MEDICATIONS: 1. Baclofen. 2. Neurontin. 3. Lipitor. DESCRIPTION OF RECORD: There is overall slowing of background at 3-4 Hz. Quite a bit of movement artifact as well. EKG is artifactual in this recording, could not be interpreted as far as the rhythm goes. A lot of eye opening throughout. Photic stimulation with a mild driving response. IMPRESSION: Overall, [id number] slowing of background consistent with encephalopathic process. No epileptiform features. Maribel Alba MD DF/sv , 07:18 PM , 07:23 PM
[2018-03-13] MEDS: Baclofen 10 MG Tablet PO SCH (08:30)
[2018-03-13] MEDS: Gabapentin 100 MG Capsule PO SCH ×2 (08:30→20:09)
[2018-03-13] MEDS: Heparin - SQ 10,000 UNITS/ML Vial SQ SCH ×2 (08:30→20:09)
--- NOTE | 2018-03-13 10:47 | ECHRPT ---
Indication: CVA/TIA CONCLUSIONS The left ventricular systolic function is hyperdynamic with an estimated ejection fraction in the ra nge of 65- 70%. Normal left ventricular size. Moderate concentric left ventricular hypertrophy. No regional wall motion abnormalities are present. The tricuspid valve is not well visualized. There is trace tricuspid valve regurgitation. Normal estimated pulmonary pressures. BP: / HR: Rhythm: Sinus MEASUREMENTS (Male / Female) Normal Values Technical Quality:Technically difficult study 2D ECHO LV Diastolic Diameter PLAX 2.3 cm 4.2 - 5.9 / 3.9 - 5.3 cm LV Systolic Diameter PLAX 1.2 cm IVS Diastolic Thickness 1.5 cm 0.6 - 1.0 / 0.6 - 0.9 cm LVPW Diastolic Thickness 1.5 cm 0.6 - 1.0 / 0.6 - 0.9 cm LV Relative Wall Thickness 1.3 LVOT Diameter 1.8 cm M-MODE Aortic Root Diameter MM 2.5 cm LA Systolic Diameter MM 3.4 cm LA Ao Ratio MM 1.4 AV Cusp Separation MM 1.9 cm DOPPLER AV Peak Velocity 124.0 cm/s AV Peak Gradient 6.2 mmHg LVOT Peak Velocity 108.0 cm/s LVOT Peak Gradient 4.7 mmHg AV Area Cont Eq pk 2.2 cm MV Area PHT 3.4 cm Mitral E Point Velocity 46.9 cm/s Mitral A Point Velocity 74.0 cm/s Mitral E to A Ratio 0.6 LV E' Lateral Velocity 5.1 cm/s Mitral E to LV E' Lateral Ratio 9.3 LV E' Septal Velocity 4.9 cm/s Mitral E to LV E' Septal Ratio 9.6 FINDINGS LEFT VENTRICLE The left ventricular systolic function is hyperdynamic with an estimated ejection fraction in the ra nge of 65- 70%. Normal left ventricular size. Moderate concentric left ventricular hypertrophy. No regional wall motion abnormalities are present. RIGHT VENTRICLE Normal right ventricular size and systolic function. LEFT ATRIUM The left atrial size is normal. RIGHT ATRIUM The right atrial size is normal. ATRIAL SEPTUM Normal atrial septal thickness without atrial level shunting by limited color doppler interrogation. AORTA The aortic root and proximal ascending aorta are normal in size on limited imaging. MITRAL VALVE Structurally normal mitral valve. No mitral valve stenosis or regurgitation. AORTIC VALVE Trileaflet aortic valve. Aortic valve sclerosis is present. TRICUSPID VALVE The tricuspid valve is not well visualized. There is trace tricuspid valve regurgitation. Normal estimated pulmonary pressures. PULMONARY VALVE The pulmonary valve is not well visualized. VESSELS The inferior vena cava is normal in size. PERICARDIUM No pericardial effusion. Cal Gomez MD, FACC (Electronically Signed) Final Date:13 March 2018 10:46
--- NOTE | 2018-03-13 12:42 | P.PNIM ---
Subjective Interval history: Follow-up for altered mental status. Patient is awake and alert and able to provide his name and follow simple commands, but unable to provide place or date. ESRD on HD and patient is reportedly anuric. Physical Exam Vital signs: Vital Signs 03/12/18 16:00 03/12/18 20:00 03/13/18 00:00 Temperature 98.6 F 99.0 F 99.3 F Pulse Rate 93 H 94 H 96 H Respiratory Rate 18 18 18 Blood Pressure 115/53 L 111/57 L 136/68 Pulse Oximetry 93 L 92 L 93 L 03/13/18 08:00 03/13/18 12:00 Temperature 98.1 F 97.9 F Pulse Rate 112 H 77 Respiratory Rate 17 16 Blood Pressure 132/70 98/57 L Pulse Oximetry 92 L 94 L Intake & Output 03/12/18 03/13/18 03/13/18 18:59 06:59 18:59 Intake Total 240 / 240 0 / 0 Output Total 1500 / 1500 Balance -1260 / -1260 0 / 0 Weight 67 kg Intake: IV 0 / 0 NS Inj 1,000 ML @ 40 mls/hr IV. 0 / 0 CONT .Q24H [facility] Rx#:[id number] Oral 240 / 240 Output: Hemodialysis Amount 1500 / 1500 Other: # Voids 0 # Bowel Movements 1 Narrative: GENERAL: Well-developed well-nourished. In no acute distress. SKIN: Warm and dry. No lesions noted. CARDIOVASCULAR: Regular rate and rhythm. No murmur appreciated. RESPIRATORY: No accessory muscle use. Clear to auscultation. Breath sounds equal bilaterally. GASTROINTESTINAL: Abdomen soft, non-tender, nondistended. Bowel sounds x4. MUSCULOSKELETAL: No obvious deformities. No clubbing or cyanosis. No edema. NEUROLOGICAL: Awake and alert. Moves upper and lower extremities spontaneously. able to provide name but unable to provide location or date. PSYCHIATRIC: Inappropriate mood and affect. Results - Labs CBC & Chem 7: 03/11/18 13:56 03/12/18 05:33 Assessment and Plan - Plan 83 yo dialysis patient who residents in skilled nursing sent by [facility] for progressive AMS, normally patient A&O and able to preform normal ADLs on his own. 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 No signs of infectious etiology, however anuric so can't check UA, was treated with ceftriaxone with no improvement, antibiotic discontinued. TSH stable. RPR negative. B12 high -Psychiatry consulted, no acute psychiatric intervention indicated at this time , recommend neurology consultation. Consider reconsultation if neuro workup remains negative. -Neurology consulted, recommended aspirin for possible TIA and checking echo and EEG - echocardiogram: The left ventricular systolic function is hyperdynamic with an estimated ejection fraction in the range of 65- 70%. Normal left ventricular size. Moderate concentric left ventricular hypertrophy. No regional wall motion abnormalities are present. The tricuspid valve is not well visualized. There is trace tricuspid valve regurgitation. Normal estimated pulmonary pressures. - EEG: Overall, [id number] slowing of background consistent with encephalopathic process. No epileptiform features. -Patient not on home Tramadol, 03/13 hold Baclofen for possible cause of AMS as well. -Speech following, PT/OT ESRD on HD -Nephrology following, appreciate assistance Elevated total CK Rhabdomyolysis secondary to agitation? No fevers -Patient on gentle hydration, he is also being followed by nephrology for dialysis. -recheck CK pending Holding home medication: labetolol for bradycardia -Heart rate improved in the 60s-80s -HR and BP stable Bilat SCDs, subcu heparin Discussed patient with [facility], patient's long-term facility prior to admission. Her they report patient was difficult to understand due to accent but was oriented and independent with ADLs. Patient was able to take his own private taxi to dialysis 3 times a week. Discussed case with supervising physician Dr. Walters
--- NOTE | 2018-03-13 13:11 | ECG ---
Date Performed: 03/11/2018 Time Performed: 13:23:27 PTAGE: 83 years EKG: SINUS BRADYCARDIA INDETERMINATE AXIS PATTERN CONSISTENT WITH PULMONARY DISEASE INFERIOR AVNI CARDIAL INFARCTION , PROBABLY OLD ABNORMAL ECG PREVIOUS TRACING : 03/07/2018 08.35 Since the previous tracing, no significant change noted DOCTOR: Lit Loomis Interpretating Date/Time 03/13/2018 13:09:52
[2018-03-13] MEDS: Sod Chloride 0.9% Inj 1,000 ML IV.CONT SCH (13:57)
[2018-03-14] MEDS: Gabapentin 100 MG Capsule PO SCH ×2 (08:33→20:31)
[2018-03-14] MEDS: Heparin - SQ 10,000 UNITS/ML Vial SQ SCH ×2 (08:33→20:30)
--- NOTE | 2018-03-14 11:23 | P.PNNP ---
Subjective Interval history: Patient appears to be more alert but pleasantly confused. Physical Exam Vital signs: Vital Signs 03/13/18 12:00 03/13/18 16:00 03/13/18 20:00 Temperature 97.9 F 97.4 F L 97.3 F L Pulse Rate 77 131 H 106 H Respiratory Rate 16 16 20 Blood Pressure 98/57 L 93/54 L 114/77 Pulse Oximetry 94 L 94 L 97 03/14/18 00:00 03/14/18 04:00 03/14/18 08:00 Temperature 97.2 F L 97.3 F L 97.4 F L Pulse Rate 100 H 62 53 L Respiratory Rate 20 18 16 Blood Pressure 96/50 L 98/54 L 90/47 L Pulse Oximetry 95 92 L 99 Intake & Output 03/13/18 03/14/18 03/14/18 18:59 06:59 18:59 Intake Total 1200 / 1200 Output Total 1 / 1 0 / 0 Balance 1199 / 1199 0 / 0 Weight 67.4 kg Intake: IV 1000 / 1000 NS Inj 1,000 ML @ 40 mls/hr IV. 1000 / 1000 CONT .Q24H [facility] Rx#:[id number] Oral 200 / 200 Output: Urine 0 / 0 Stool 1 / 1 Other: # Voids 0 Date of Last Bowel Movement 03/13/18 03/13/18 Narrative: GENERAL: Well-developed well-nourished. In no acute distress. SKIN: Warm and dry. No lesions noted. CARDIOVASCULAR: Regular rate and rhythm. No murmur appreciated. RESPIRATORY: No accessory muscle use. Clear to auscultation. Breath sounds equal bilaterally. GASTROINTESTINAL: Abdomen soft, non-tender, nondistended. MUSCULOSKELETAL: No obvious deformities. No clubbing or cyanosis. No edema. Assessment and Plan - Assessment (1) ESRD (end stage renal disease) on dialysis Code(s): N18.6 - End stage renal disease; Z99.2 - Dependence on renal dialysis Status: Acute Plan: C Continue hemodialysis Wednesday and Saturdays. Neurological evaluation in progress. Discharge planning as per hospitalist. Medications should be adjusted for the patient's ESRD. Avoid gadolinium. (2) Altered mental status Code(s): R41.82 - Altered mental status, unspecified Status: Acute Plan: Evaluation in progress. . (3) Hypertension Code(s): I10 - Essential (primary) hypertension Status: Acute (4) Diabetes mellitus Code(s): E11.9 - Type 2 diabetes mellitus without complications Status: Acute
[2018-03-14 11:31] LABS: Calcium 10.2 mg/dL (8.5-10.1); Carbon Dioxide 23.5 meq/L (21.0-32.0); Potassium 5.4 meq/L (3.5-5.1)
--- NOTE | 2018-03-14 12:02 | US ---
EXAM DATE: 03/14/2018 11:58 AM EDT AGE/SEX: 83 years / Male INDICATIONS: Transient ischemic attack. CLINICAL DATA: This is the patient's initial encounter. Patient reports that signs and symptoms have been present for 1 day and indicates a pain score of 0/10. MEDICAL/SURGICAL HISTORY: Congestive heart failure. Dementia. End stage renal disease. Dialysis . CVA. Hypertension. Peripheral vascular disease. Diabetes. . AV fistula with repair. COMPARISON: No prior exams available for comparison. VELOCITY PARAMETERS: ICA/CCA Ratio: Right 0.4 , Left 0.5 ICA: Right 57 cm/sec, Left 62 cm/sec CCA: Right 130 cm/sec, Left 135 cm/sec ECA: Right 58 cm/sec, Left 68 cm/sec Vertebral: Right 24 cm/sec antegrade, Left 48 cm/sec antegrade FINDINGS: Right Carotid: Minimal plaque is visualized.The waveforms are within normal limits. Left Carotid: Minimal plaque is visualized. The waveforms are within normal limits. Other: None. CONCLUSION: 1. Right Internal Carotid Artery: No significant stenosis; minimal atherosclerotic plaque is visuali zed. 2. Left Internal Carotid Artery: No significant stenosis; minimal atherosclerotic plaque is visualiz ed. 3. Antegrade flow both vertebral arteries. Electronically signed by: Alex Rangel MD 03/14/2018 12:00 PM EDT
--- NOTE | 2018-03-14 13:17 | P.PN ---
Subjective Interval history: Follow-up visit for altered mental status, possible TIA. Patient is seen and examined resting in bed, appears to be in no acute distress with niece and daughter at bedside. Patient is less talkative and speech is garbled able to state date of not oriented to time or place. He is following commands although appears less alert. Per family patient not eating much, trouble with ambulation. Nurse reports patient with difficulty swallowing and drooling. Physical Exam Vital signs: Vital Signs 03/13/18 16:00 03/13/18 20:00 03/14/18 00:00 Temperature 97.4 F L 97.3 F L 97.2 F L Pulse Rate 131 H 106 H 100 H Respiratory Rate 16 20 20 Blood Pressure 93/54 L 114/77 96/50 L Pulse Oximetry 94 L 97 95 03/14/18 04:00 03/14/18 08:00 Temperature 97.3 F L 97.4 F L Pulse Rate 62 53 L Respiratory Rate 18 16 Blood Pressure 98/54 L 90/47 L Pulse Oximetry 92 L 99 Intake & Output 03/13/18 03/14/18 03/14/18 18:59 06:59 18:59 Intake Total 1200 / 1200 Output Total 1 / 1 0 / 0 Balance 1199 / 1199 0 / 0 Weight 67.4 kg Intake: IV 1000 / 1000 NS Inj 1,000 ML @ 40 mls/hr IV. 1000 / 1000 CONT .Q24H [facility] Rx#:[id number] Oral 200 / 200 Output: Urine 0 / 0 Stool 1 / 1 Other: # Voids 0 Date of Last Bowel Movement 03/13/18 03/13/18 Narrative: GENERAL: Well-developed well-nourished. In no acute distress. SKIN: Warm and dry. No lesions noted. CARDIOVASCULAR: Regular rate and rhythm. 2/6 murmur. RESPIRATORY: No accessory muscle use. Clear to auscultation. Breath sounds equal bilaterally. GASTROINTESTINAL: Abdomen soft, non-tender, nondistended. Bowel sounds x4. MUSCULOSKELETAL: No obvious deformities. No clubbing or cyanosis. No edema. NEUROLOGICAL: Awake and alert. Moves upper and lower extremities spontaneously. Left facial droop, garbled speech but understandable. Right upper extremity tele tech strength 4/5, left upper extremity tele tech strength 5/5. Does not participate in strength testing of lower extremities. PSYCHIATRIC: Inappropriate mood and affect. Results - Labs CBC & Chem 7: 03/11/18 13:56 03/14/18 10:16 Laboratory Results - last 24 hr 03/14/18 10:16 Sodium 142 Potassium 5.4 H Chloride 97 L Carbon Dioxide 23.5 Anion Gap 22 H BUN 71 H Creatinine 11.24 H* D Estimated GFR 5 L Random Glucose 96 Calcium 10.2 H - Imaging Impressions Carotid Doppler Study 03/14/18 00:00 CONCLUSION: 1. Right Internal Carotid Artery: No significant stenosis; minimal atherosclerotic plaque is visualized. 2. Left Internal Carotid Artery: No significant stenosis; minimal atherosclerotic plaque is visualized. 3. Antegrade flow both vertebral arteries. Assessment and Plan - Plan 83 yo dialysis patient who residents in [facility] sent by [facility] for progressive AMS, normally patient A&O and able to preform normal ADLs on his own. 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 No signs of infectious etiology, however anuric so can't check UA, was treated with ceftriaxone with no improvement, antibiotic discontinued. TSH stable. RPR negative. B12 high -Psychiatry consulted, no acute psychiatric intervention indicated at this time , recommend neurology consultation. Consider reconsultation if neuro workup remains negative. -Neurology consulted, recommended aspirin for possible TIA and checking echo and EEG - echocardiogram: The left ventricular systolic function is hyperdynamic with an estimated ejection fraction in the range of 65- 70%. Normal left ventricular size. Moderate concentric left ventricular hypertrophy. No regional wall motion abnormalities are present. The tricuspid valve is not well visualized. There is trace tricuspid valve regurgitation. Normal estimated pulmonary pressures. - EEG: Overall, [id number] slowing of background consistent with encephalopathic process. No epileptiform features. -Carotid ultrasounds with no significant stenosis -Continue to hold tramadol and baclofen -Speech following, PT/OT -Right upper extremity weakness, left facial droop, dysphasia, patient less alert. Appears to be more CVA in nature, discussed with nurse, daughter, - Call placed to neurology to make them aware by nurse, continue aspirin and statin. -Daughter voices concerns over dysphasia and nutrition, offered NG tube however declined. Consult placed to GI for PEG tube placement per daughter's request. ESRD on HD -Nephrology following, appreciate assistance Elevated total CK Rhabdomyolysis secondary to agitation? No fevers -Patient on gentle hydration, slight decrease in total CK. -recheck CK in the a.m. Holding home medication: labetolol for bradycardia -Heart rate improved in the 60s-80s -HR and BP stable Bilat SCDs, subcu heparin Discussed Condition With: Discussed with daughter, RN, . Discharge Planning: We will need neurology clearance prior to discharge. Case management to assist with placement for sniff.
[2018-03-14] MEDS: Sod Chloride 0.9% Inj 1,000 ML IV.CONT SCH (14:25)
[2018-03-15 06:29] LABS: Baso # (Auto) 0.1 th/mm3 (0.0-0.2); Baso % (Auto) 0.7 % (0.0-2.0); Eos # (Auto) 0.3 th/mm3 (0.0-0.4); Hematocrit 43.3 % (39.0-51.0); Hemoglobin 13.3 gm/dL (13.0-17.0); Lymph # (Auto) 1.3 th/mm3 (1.0-4.8); Lymph % (Auto) 16.6 % (9.0-44.0); Mean Corpuscular Volume 81.7 fL (80.0-100.0); Mean Platelet Volume 7.9 fL (7.0-11.0); Mono # (Auto) 1.1 th/mm3 (0.0-0.9); Mono % (Auto) 13.7 % (0.0-8.0); Neut # (Auto) 5.1 th/mm3 (1.8-7.7); Platelet Count 189 th/mm3 (150-450); Red Cell Distribution Width 19.4 % (11.6-17.2); White Blood Count 7.9 th/mm3 (4.0-11.0)
[2018-03-15 06:32] LABS: Mean Corpuscular HGB Conc 30.6 % (32.0-36.0)
[2018-03-15 07:18] LABS: CKMB Percent 0.5 % (0.0-4.0); Creatine Kinase MB 1.7 ng/mL (0.5-3.6)
[2018-03-15 08:19] LABS: Ovalocytes 1+
[2018-03-15] MEDS: Heparin - SQ 10,000 UNITS/ML Vial SQ SCH ×2 (08:51→21:21)
[2018-03-15] MEDS: Gabapentin 100 MG Capsule PO SCH ×2 (08:53→21:21)
[2018-03-15] MEDS: Albumin Human 25% Inj 100 ML IV.SIG PRN (10:08)
--- NOTE | 2018-03-15 10:54 | P.PNNP ---
Subjective Interval history: Patient was seen during his dialysis session today. Pleasantly confused. Does recognize me however. Physical Exam Vital signs: Vital Signs 03/14/18 16:00 03/14/18 20:00 03/15/18 00:00 Temperature 97.6 F 97.9 F 97.9 F Pulse Rate 52 L 66 51 L Respiratory Rate 16 18 18 Blood Pressure 113/53 L 117/59 L 132/59 L Pulse Oximetry 94 L 95 97 03/15/18 08:00 Temperature Pulse Rate 59 L Respiratory Rate Blood Pressure Pulse Oximetry Intake & Output 03/14/18 03/15/18 03/15/18 18:59 06:59 18:59 Intake Total 1015 / 1015 100 / 100 Balance 1015 / 1015 100 / 100 Weight 67.9 kg Intake: IV 1000 / 1000 100 / 100 NS Inj 1,000 ML @ 40 mls/hr IV. 1000 / 1000 CONT .Q24H [facility] Rx#:[id number] Flexbumin 25% Inj 100 ML @ 60 100 / 100 mls/hr IV.SIG WITH DIALYSIS PRN Rx#:[id number] Oral Other: # Voids 0 0 Date of Last Bowel Movement 03/13/18 03/14/18 # Bowel Movements 1 Narrative: GENERAL: Well-developed well-nourished. In no acute distress. Presently tolerating his dialysis session. SKIN: Warm and dry. No lesions noted. CARDIOVASCULAR: Regular rate and rhythm. RESPIRATORY: No accessory muscle use. Clear to auscultation. Breath sounds equal bilaterally. GASTROINTESTINAL: Abdomen soft, non-tender, nondistended. Bowel sounds x4. MUSCULOSKELETAL: No obvious deformities. No clubbing or cyanosis. No edema. Assessment and Plan - Assessment (1) ESRD (end stage renal disease) on dialysis Code(s): N18.6 - End stage renal disease; Z99.2 - Dependence on renal dialysis Status: Acute Plan: Stable during dialysis today. Continue hemodialysis Wednesday and Saturdays. Neurological evaluation in progress. Discharge planning as per hospitalist. Medications should be adjusted for the patient's ESRD. Avoid gadolinium. (2) Altered mental status Code(s): R41.82 - Altered mental status, unspecified Status: Acute Plan: Evaluation in progress. . (3) Hypertension Code(s): I10 - Essential (primary) hypertension Status: Acute (4) Diabetes mellitus Code(s): E11.9 - Type 2 diabetes mellitus without complications Status: Acute
--- NOTE | 2018-03-15 14:30 | P.PNIM ---
Subjective Interval history: Follow simple commands. Cannot tell me the month or the year. Is not having any pain. Physical Exam Vital signs: Vital Signs 03/14/18 16:00 03/14/18 20:00 03/15/18 00:00 Temperature 97.6 F 97.9 F 97.9 F Pulse Rate 52 L 66 51 L Respiratory Rate 16 18 18 Blood Pressure 113/53 L 117/59 L 132/59 L Pulse Oximetry 94 L 95 97 03/15/18 08:00 Temperature Pulse Rate 59 L Respiratory Rate Blood Pressure Pulse Oximetry Intake & Output 03/14/18 03/15/18 03/15/18 18:59 06:59 18:59 Intake Total 1015 / 1015 100 / 100 Output Total 700 / 700 Balance 1015 / 1015 -600 / -600 Weight 67.9 kg Intake: IV 1000 / 1000 100 / 100 NS Inj 1,000 ML @ 40 mls/hr IV. 1000 / 1000 CONT .Q24H [facility] Rx#:[id number] Flexbumin 25% Inj 100 ML @ 60 100 / 100 mls/hr IV.SIG WITH DIALYSIS PRN Rx#:[id number] Oral Output: Hemodialysis Amount 700 / 700 Other: # Voids 0 0 Date of Last Bowel Movement 03/13/18 03/14/18 # Bowel Movements 1 Narrative: GENERAL: Well-developed well-nourished. In no acute distress. SKIN: Warm and dry. No lesions noted. CARDIOVASCULAR: Regular rate and rhythm. RESPIRATORY: No accessory muscle use. Clear to auscultation. Breath sounds equal bilaterally. GASTROINTESTINAL: Abdomen soft, non-tender, nondistended. Bowel sounds x4. MUSCULOSKELETAL: No obvious deformities. No clubbing or cyanosis. No edema. Neurologicalconfused, oriented to person, not to place or time, follow simple commands. 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 Diff Scan Auto diff confirmed Differential Comment . Ovalocytes 1+ H Total Creatine Kinase 319 H CK-MB (CK-2) 1.7 CK-MB (CK-2) % 0.5 Assessment and Plan - Plan 83 yo dialysis patient who residents in senior care sent by [facility] for progressive AMS, normally patient A&O and able to preform normal ADLs on his own. 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 No signs of infectious etiology, however anuric so can't check UA, was treated with ceftriaxone with no improvement, antibiotic discontinued. TSH stable. RPR negative. B12 high -Psychiatry consulted, no acute psychiatric intervention indicated at this time , recommend neurology consultation. Consider reconsultation if neuro workup remains negative. -Neurology consulted, recommended aspirin for possible TIA and checking echo and EEG - echocardiogram: The left ventricular systolic function is hyperdynamic with an estimated ejection fraction in the range of 65- 70%. Normal left ventricular size. Moderate concentric left ventricular hypertrophy. No regional wall motion abnormalities are present. The tricuspid valve is not well visualized. There is trace tricuspid valve regurgitation. Normal estimated pulmonary pressures. - EEG: Overall, [id number] slowing of background consistent with encephalopathic process. No epileptiform features. -Carotid ultrasounds with no significant stenosis -Continue to hold tramadol and baclofen -Speech following, PT/OT -Right upper extremity weakness, left facial droop, dysphasia, - continue aspirin and statin. -Daughter voices concerns over dysphasia and nutrition, offered NG tube however declined. Consult placed to GI for PEG tube placement per daughter's request. continue ST ESRD on HD TUTHSat -Nephrology following, appreciate assistance Elevated total CK now improved Rhabdomyolysis secondary to agitation? No fevers -Patient on gentle hydration, slight decrease in total CK. Holding home medication: labetolol for bradycardia -Heart rate improved in the 60s-80s -HR and BP stable Bilat SCDs, subcu heparin Discharge Planning: will need snf
[2018-03-15] MEDS: Sod Chloride 0.9% Inj 1,000 ML IV.CONT SCH (15:22)
--- NOTE | 2018-03-15 15:24 | P.CONGI ---
History of Present Illness Consult date: 03/15/18 Consult reason: CVA with Dysphagia, AMS with poor Po intake. Evaluation for PEG tube placement. Chief complaint: Altered mental status History of Present Illness: Mr. Root is an 83-year-old male patient who was admitted to [facility] on 03/07/2018. He was sent from a group home facility for progressive altered mental status changes. Patient has history of end-stage renal disease on hemodialysis Tuesdays , and Saturdays history of hypertension, diabetes and altered mental status. CT brain done 03/07/18 on admission. Findings reveal --> There is encephalomalacia in the left temporal region with mild ex vacuo dilatation of the left lateral ventricle again seen. There is stable white matter disease in the left periventricular white matter and no signs of acute infarct, hemorrhage, or mass. No fractures are seen. Vascular calcifications are noted. 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 Conclusion: No acute findings. Imaging indicative of old cerebral vascular accident no new infarcts seen. Speech therapy consulted to evaluate patient per recommendation obtained from speech therapy progress note dated 03/14 patient with decreased alertness and severe oropharyngeal dysphagia. Recommendation given diet consistency n.p.o. with considerations for alternative methods of nutrition. Our practice has been consulted to evaluate patient for PEG placement. I had the opportunity to discuss the plan of care with Rico), the patient's daughter this morning. Consent for procedure was obtained she is in agreement to have PEG placed tomorrow as patient currently has poor nutritional intake. Will schedule patient for PEG placement 2017. Most recent labs reviewed WBC 7.9 hemoglobin 13.3 hematocrit 43.3 platelet count 189. 03/11/2018 INR 1.1. Will hold a.m. dose of subQ heparin prior to procedure. 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 <Meaghan Mcgarry - Last Filed: 03/15/18 15:39> Review of Systems unobtainable due to mental status Constitutional: Reports weakness Cardiovascular: Denies shortness of breath Respiratory: Denies shortness of breath Gastrointestinal: Denies abdominal pain, Denies vomiting, Denies vomiting blood Comments: ESRD on hemodialysis <Meaghan Mcgarry - Last Filed: 03/15/18 15:39> PMFSH - History History Provided By: Medical Record (Hepatic encephalopathy, dialysis patient) - Medical History Medical History: Medical History (Last Reviewed 03/14/18 @ 10:25 by Kera Rubio) AVF (arteriovenous fistula) CHF (congestive heart failure) Dementia ESRD (end stage renal disease) on dialysis History of CVA (cerebrovascular accident) Hypertension Peripheral vascular disease Type 2 diabetes mellitus with other diabetic kidney complication - Tobacco History Second Hand Smoke Exposure: No Smoking Status: Never smoker - Alcohol History How Often Do You Have a Drink Containing Alcohol: Never - Substance Use History Substance History: No History of Abuse, Unable to Obtain - Travel History Recent Travel in the [place] Within the Last 8 Weeks: No Recent Travel Out of the Country Within the Last 8 Weeks: No - Immunization History Tetanus Immunization: Unable to Assess Hx Influenza Vaccine This Season: Unable to Assess <Meaghan Mcgarry - Last Filed: 03/15/18 15:39> - Medical History Medical History: Medical History (Last Reviewed 03/14/18 @ 10:25 by Kera Rubio) AVF (arteriovenous fistula) CHF (congestive heart failure) Dementia ESRD (end stage renal disease) on dialysis History of CVA (cerebrovascular accident) Hypertension Peripheral vascular disease Type 2 diabetes mellitus with other diabetic kidney complication <Antony Fortune - Last Filed: 03/15/18 22:48> Medications and Allergies Active Medications: Active Medications Acetaminophen (Tylenol) 650 mg PO UNSCH PRN PRN Reason: SEE LABEL COMMENTS Aspirin (Ecotrin) 81 mg PO DAILY [facility] Last Admin: 03/15/18 08:50 Dose: Not Given Atorvastatin Calcium (Lipitor) 10 mg PO DAILY [facility] Last Admin: 03/15/18 08:53 Dose: 10 mg Baclofen (Lioresal) 5 mg PO BID [facility] Last Admin: 03/13/18 08:30 Dose: 5 mg Clonidine HCl (Catapres) 0.1 mg PO UNSCH PRN PRN Reason: SEE LABEL COMMENTS Diphenhydramine HCl (Benadryl) 25 mg PO UNSCH PRN PRN Reason: SEE LABEL COMMENTS Gabapentin (Neurontin) 100 mg PO BID [facility] Last Admin: 03/15/18 08:53 Dose: 100 mg Gelatin (Gelfoam 12 Mm/7 Mm Topical) 1 foam TOPICAL PRN PRN PRN Reason: help stop bleeding from site Heparin Sodium (Porcine) (Heparin Inj) 8,000 units OTHER WITH DIALYSIS PRN PRN Reason: for machine prime Last Admin: 03/12/18 11:11 Dose: 1,000 units Heparin Sodium (Porcine) (Heparin Inj) 5,000 units SQ Q12HR [facility] Last Admin: 03/15/18 08:51 Dose: Not Given Albumin Human (Flexbumin 25% Inj) 100 mls @ 60 mls/hr IV.SIG WITH DIALYSIS PRN PRN Reason: hypotension / volume replace Last Infusion: 03/15/18 10:08 Dose: Infused Sodium Chloride (Ns Inj) 1,000 mls @ 0 mls/hr OTHER .Q0M PRN PRN Reason: for prime and rinse back Sodium Chloride (Ns Inj) 1,000 mls @ 200 mls/hr OTHER .Q5H PRN PRN Reason: for dialyzer flush PRN Sodium Chloride (Ns Inj) 1,000 mls @ 0 mls/hr IV.CONT .Q0M PRN PRN Reason: hypotension / volume replace Sodium Chloride (Ns Inj) 1,000 mls @ 40 mls/hr IV.CONT .Q24H [facility] Last Infusion: 03/14/18 16:02 Dose: Infused Nitroglycerin (Nitrostat Sl) 0.4 mg SL Q5M PRN PRN Reason: CHEST PAIN Ondansetron HCl (Zofran Inj) 4 mg IV.PUSH UNSCH PRN PRN Reason: NAUSEA OR VOMITING Sodium Chloride (Ns Flush) 2 ml IV.FLUSH PRN PRN PRN Reason: FLUSH AFTER USING IV ACCESS <Meaghan Mcgarry - Last Filed: 03/15/18 15:39> Active Medications: Active Medications Acetaminophen (Tylenol) 650 mg PO UNSCH PRN PRN Reason: SEE LABEL COMMENTS Aspirin (Ecotrin) 81 mg PO DAILY [facility] Last Admin: 03/15/18 08:50 Dose: Not Given Atorvastatin Calcium (Lipitor) 10 mg PO DAILY [facility] Last Admin: 03/15/18 08:53 Dose: 10 mg Baclofen (Lioresal) 5 mg PO BID [facility] Last Admin: 03/13/18 08:30 Dose: 5 mg Clonidine HCl (Catapres) 0.1 mg PO UNSCH PRN PRN Reason: SEE LABEL COMMENTS Diphenhydramine HCl (Benadryl) 25 mg PO UNSCH PRN PRN Reason: SEE LABEL COMMENTS Gabapentin (Neurontin) 100 mg PO BID [facility] Last Admin: 03/15/18 21:21 Dose: Not Given Gelatin (Gelfoam 12 Mm/7 Mm Topical) 1 foam TOPICAL PRN PRN PRN Reason: help stop bleeding from site Heparin Sodium (Porcine) (Heparin Inj) 8,000 units OTHER WITH DIALYSIS PRN PRN Reason: for machine prime Last Admin: 03/12/18 11:11 Dose: 1,000 units Heparin Sodium (Porcine) (Heparin Inj) 5,000 units SQ Q12HR [facility] Last Admin: 03/15/18 21:21 Dose: 5,000 units Albumin Human (Flexbumin 25% Inj) 100 mls @ 60 mls/hr IV.SIG WITH DIALYSIS PRN PRN Reason: hypotension / volume replace Last Infusion: 03/15/18 10:08 Dose: Infused Sodium Chloride (Ns Inj) 1,000 mls @ 0 mls/hr OTHER .Q0M PRN PRN Reason: for prime and rinse back Sodium Chloride (Ns Inj) 1,000 mls @ 200 mls/hr OTHER .Q5H PRN PRN Reason: for dialyzer flush PRN Sodium Chloride (Ns Inj) 1,000 mls @ 0 mls/hr IV.CONT .Q0M PRN PRN Reason: hypotension / volume replace Sodium Chloride (Ns Inj) 1,000 mls @ 40 mls/hr IV.CONT .Q24H [facility] Last Admin: 03/15/18 15:22 Dose: Not Given Cefazolin Sodium 1,000 mg/ (Sodium Chloride) 100 mls @ 200 mls/hr 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 [facility] Stop: 03/18/18 15:40 Nitroglycerin (Nitrostat Sl) 0.4 mg SL Q5M PRN PRN Reason: CHEST PAIN Ondansetron HCl (Zofran Inj) 4 mg IV.PUSH UNSCH PRN PRN Reason: NAUSEA OR VOMITING Sodium Chloride (Ns Flush) 2 ml IV.FLUSH PRN PRN PRN Reason: FLUSH AFTER USING IV ACCESS <Antony Fortune - Last Filed: 03/15/18 22:48> Allergies Allergy/AdvReac Type Severity Reaction Status Date / Time No Known Allergies Allergy Unknown Uncoded 11/10/17 16:10 Home Medications Medication Instructions Recorded Confirmed Type B complex-vitamin C-folic acid 1 tab PO DAILY 03/07/18 03/07/18 History [Padmini-Micah] acetaminophen 500 mg PO TID 03/07/18 03/07/18 History albuterol sulfate [Ventolin HFA] 1 puff INHALATION QID PRN 03/07/18 03/07/18 History allopurinol 100 mg PO DAILY 03/07/18 03/07/18 History aspirin [Aspir-81] 81 mg PO DAILY 03/07/18 03/07/18 History atorvastatin 10 mg PO DAILY 03/07/18 03/07/18 History baclofen 5 mg PO BID 03/07/18 03/07/18 History ergocalciferol (vitamin D2) 50,000 unit PO QWEEK 03/07/18 03/07/18 History [Vitamin D2] ferrous sulfate 325 mg PO DAILY 03/07/18 03/07/18 History fluticasone 2 spray INTRANASAL DAILY 03/07/18 03/07/18 History furosemide 40 mg PO DAILY 03/07/18 03/07/18 History gabapentin 100 mg PO TID 03/07/18 03/07/18 History labetalol 200 mg PO TID 03/07/18 03/07/18 History lactulose 20 g PO DAILY 03/07/18 03/07/18 History sevelamer carbonate [Renvela] 800 mg PO TID 03/07/18 03/07/18 History tramadol 50 mg PO BID 03/07/18 03/07/18 History Exam Vital signs: Vital Signs 03/14/18 16:00 03/14/18 20:00 03/15/18 00:00 Temperature 97.6 F 97.9 F 97.9 F Pulse Rate 52 L 66 51 L Respiratory Rate 16 18 Blood Pressure 113/53 L 117/59 L 132/59 L Pulse Oximetry 94 L 95 97 03/15/18 08:00 Temperature Pulse Rate 59 L Respiratory Rate Blood Pressure Pulse Oximetry Intake & Output 03/14/18 03/15/18 03/15/18 18:59 06:59 18:59 Intake Total 1015 / 1015 100 / 100 Output Total 700 / 700 Balance 1015 / 1015 -600 / -600 Weight 67.9 kg Intake: IV 1000 / 1000 100 / 100 NS Inj 1,000 ML @ 40 mls/hr IV. 1000 / 1000 CONT .Q24H [facility] Rx#:[id number] Flexbumin 25% Inj 100 ML @ 60 100 / 100 mls/hr IV.SIG WITH DIALYSIS PRN Rx#:[id number] Oral Output: Hemodialysis Amount 700 / 700 Other: # Voids 0 0 Date of Last Bowel Movement 03/13/18 03/14/18 # Bowel Movements 1 Narrative: Pt awake, alert, able to deny pain or discomfort. Oriented to self only. - Constitutional no acute distress, chronically ill appearing - Routine HEENT Exam Head: Present: normocephalic - Routine Neck Exam Present: supple - Routine Chest/Breast/Axilla Exam Chest wall: Absent: tenderness - Routine Respiratory Exam Present: CTA bilaterally. Absent: accessory muscle use, respiratory distress - Routine Cardiovascular Exam Present: bradycardia - Routine Abdominal Exam Present: soft, normoactive bowel sounds. Absent: tenderness, distended, guarding, firm - Routine Extremities Exam Present: pulses intact. Absent: cyanosis, edema - Routine Skin Exam Present: dry, warm - Routine Neurological Exam Present: alert, altered mental status <Meaghan Mcgarry - Last Filed: 03/15/18 15:39> Vital signs: Vital Signs 03/15/18 00:00 03/15/18 08:00 03/15/18 16:00 Temperature 97.9 F 98.7 F Pulse Rate 51 L 59 L 73 Respiratory Rate 18 17 Blood Pressure 132/59 L 112/56 L Pulse Oximetry 97 95 03/15/18 20:00 Temperature 98.7 F Pulse Rate 46 L Respiratory Rate 16 Blood Pressure 104/51 L Pulse Oximetry 96 Intake & Output 03/15/18 03/15/18 03/16/18 06:59 18:59 06:59 Intake Total 100 / 100 Output Total 700 / 700 Balance -600 / -600 Weight 67.9 kg Intake: IV 100 / 100 Flexbumin 25% Inj 100 ML @ 60 100 / 100 mls/hr IV.SIG WITH DIALYSIS PRN Rx#:[id number] Output: Hemodialysis Amount 700 / 700 Other: # Voids 0 Date of Last Bowel Movement 03/14/18 # Bowel Movements 1 <Antony Fortune - Last Filed: 03/15/18 22:48> Results - Labs CBC & Chem 7: 03/15/18 04:51 03/14/18 10:16 Labs: Laboratory Results - last 24 hr 03/15/18 03/15/18 04:51 04:51 WBC 7.9 RBC 5.30 Hgb 13.3 Hct 43.3 MCV 81.7 MCH 25.0 L MCHC 30.6 L RDW 19.4 H Plt Count 189 MPV 7.9 Prelim Diff (Auto) Slide review pending Neut % (Auto) 65.0 Lymph % (Auto) 16.6 Hamilton % (Auto) 13.7 H Eos % (Auto) 4.0 Baso % (Auto) 0.7 Neut # (Auto) 5.1 Lymph # (Auto) 1.3 Hamilton # (Auto) 1.1 H Eos # (Auto) 0.3 Baso # (Auto) 0.1 WBC Differential . Diff Scan Auto diff confirmed Differential Comment . Ovalocytes 1+ H Total Creatine Kinase 319 H CK-MB (CK-2) 1.7 CK-MB (CK-2) % 0.5 <Meaghan Mcgarry - Last Filed: 03/15/18 15:39> - Labs CBC & Chem 7: 03/15/18 04:51 03/14/18 10:16 Labs: Laboratory Results - last 24 hr 03/15/18 03/15/18 04:51 04:51 WBC 7.9 RBC 5.30 Hgb 13.3 Hct 43.3 MCV 81.7 MCH 25.0 L MCHC 30.6 L RDW 19.4 H Plt Count 189 MPV 7.9 Prelim Diff (Auto) Slide review pending Neut % (Auto) 65.0 Lymph % (Auto) 16.6 Hamilton % (Auto) 13.7 H Eos % (Auto) 4.0 Baso % (Auto) 0.7 Neut # (Auto) 5.1 Lymph # (Auto) 1.3 Hamilton # (Auto) 1.1 H Eos # (Auto) 0.3 Baso # (Auto) 0.1 WBC Differential . Diff Scan Auto diff confirmed Differential Comment . Ovalocytes 1+ H Total Creatine Kinase 319 H CK-MB (CK-2) 1.7 CK-MB (CK-2) % 0.5 - Imaging Impressions Head MRI 03/15/18 00:00 CONCLUSION: 1. No acute infarct or other acute intracranial abnormality. 2. 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 3. 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 4. Mild chronic white matter changes. 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 Fortune.This note is written on his behalf <Meaghan Mcgarry - Last Filed: 03/15/18 15:39> (1) Dysphagia Status: Acute Code(s): R13.10 - Dysphagia, unspecified - Attending Attestation Seen and examined, plan as above. Will obtain consent for PEG placement. Thank you for the consult. <Antony Fortune - Last Filed: 03/15/18 22:48>
--- NOTE | 2018-03-15 19:05 | MR ---
EXAM DATE: 03/15/2018 6:57 PM EDT AGE/SEX: 83 years / Male INDICATIONS: CVA. Patient is now nonverbal. CLINICAL DATA: This is the patient's subsequent encounter. Patient reports that signs and symptoms h ave been present for 1 week and indicates a pain score of Nonresponsive. MEDICAL/SURGICAL HISTORY: Hypertension. Cerebrovascular disease. Diabetes. None. [place]PAR[place] [facility] [place]/11/[place]. . TECHNIQUE: Multiplanar, multisequence examination of the brain was performed without contrast. FINDINGS: Cerebrum: The ventricles are normal for age. No evidence of midline shift, mass lesion, hemorrhage or acute infarction. No extraaxial fluid collections are seen. The pituitary gland and suprasellar cistern are normal in configuration. White Matter: There is an old bleed again seen in the left basal ganglia and periventricular white m atter. Mild, chronic FLAIR signal abnormality seen in the periventricular white matter of both cerebr al hemispheres. Posterior Fossa: The cerebellum and brainstem are intact; scattered punctate chronic FLAIR signal abn ormality of the marianna again noted. The 4th ventricle is midline. The cerebellopontine angle is unrem arkable. The cerebellar tonsils are normal in position. Diffusion Imaging: No focal areas of restricted diffusion are seen. No evidence of acute infarction . Extracranial: The visualized portions of the orbits and paranasal sinuses are unremarkable. CONCLUSION: 1. No acute infarct or other acute intracranial abnormality. 2. 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 3. 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 4. Mild chronic white matter changes. Electronically signed by: Eduardo Puente MD 03/15/2018 7:04 PM EDT
[2018-03-16] MEDS ORDERED: Chlorhexidine Gluconate 2% 1 Pack (2 Cloths) TOPICAL ONE (08:05)
[2018-03-16] MEDS ORDERED: Metoprolol Tartrate 25 MG Tablet PO ONE (08:05)
[2018-03-16] MEDS ORDERED: Sodium Chlor 0.9% Inj 500 ML IV.SIG SCH (09:00)
--- NOTE | 2018-03-16 09:39 | P.PNIM ---
Subjective Interval history: Pleasantly confused and has aphasia. Follows simple commands. Physical Exam Vital signs: Vital Signs 03/15/18 16:00 03/15/18 20:00 03/16/18 00:00 Temperature 98.7 F 98.7 F 99 F Pulse Rate 73 46 L 39 L Respiratory Rate 17 16 16 Blood Pressure 112/56 L 104/51 L 105/50 L Pulse Oximetry 95 96 95 Intake & Output 03/15/18 03/16/18 03/16/18 18:59 06:59 18:59 Intake Total 100 / 100 0 / 0 Output Total 700 / 700 Balance -600 / -600 0 / 0 Weight 68 kg Intake: IV 100 / 100 Flexbumin 25% Inj 100 ML @ 60 100 / 100 mls/hr IV.SIG WITH DIALYSIS PRN Rx#:[id number] Oral 0 / 0 Output: Hemodialysis Amount 700 / 700 Other: # Voids 0 Date of Last Bowel Movement 03/14/18 03/14/18 # Bowel Movements 1 0 Narrative: GENERAL: Well-developed well-nourished. In no acute distress. SKIN: Warm and dry. No lesions noted. CARDIOVASCULAR: Regular rate and rhythm. RESPIRATORY: No accessory muscle use. Clear to auscultation. Breath sounds equal bilaterally. GASTROINTESTINAL: Abdomen soft, non-tender, nondistended. Bowel sounds x4. MUSCULOSKELETAL: No obvious deformities. No clubbing or cyanosis. No edema. Neurologicalconfused, oriented to person, not to place or time, follow simple commands. 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 No acute infarct or other acute intracranial abnormality. 2. 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 3. 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 4. Mild chronic white matter changes. Assessment and Plan - Plan 83 yo dialysis patient who residents in jail sent by [facility] for progressive AMS, normally patient A&O and able to preform normal ADLs on his own. 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 No signs of infectious etiology, however anuric so can't check UA, was treated with ceftriaxone with no improvement, antibiotic discontinued. TSH stable. RPR negative. B12 high -Psychiatry consulted, no acute psychiatric intervention indicated at this time , recommend neurology consultation. -Neurology consulted, recommended aspirin for possible TIA and checking echo and EEG - echocardiogram: The left ventricular systolic function is hyperdynamic with an estimated ejection fraction in the range of 65- 70%. Normal left ventricular size. Moderate concentric left ventricular hypertrophy. No regional wall motion abnormalities are present. The tricuspid valve is not well visualized. There is trace tricuspid valve regurgitation. Normal estimated pulmonary pressures. - EEG: Overall, [id number] slowing of background consistent with encephalopathic process. No epileptiform features. -Carotid ultrasounds with no significant stenosis -Continue to hold tramadol and baclofen -Speech following, PT/OT -Right upper extremity weakness, left facial droop, dysphasia, - continue aspirin and statin. -Daughter voices concerns over dysphasia and nutrition, offered NG tube however declined. Consult placed to GI for PEG tube placement today per daughter's request. continue ST ESRD on HD TUTHSat -Nephrology following, appreciate assistance Elevated total CK now improved Rhabdomyolysis secondary to agitation? No fevers -Status post gentle hydration, slight decrease in total CK. Holding home medication: labetolol for sinus bradycardia -Heart rate improved in the 60s-80s -Recurrence of decrease heart rate, will obtain a cardiology evaluation. 2D echo with normal ventricular function Bilat SCDs, subcu heparin Discharge Planning: will need snf
[2018-03-16] MEDS ORDERED: Lidocaine PF 1% Inj 5 ML Syringe INFILTRATN ONE (10:53)
[2018-03-16] MEDS ORDERED: Phenylephrine/NS 1000 MCG/10ML Syringe IV.PUSH ONE (10:53)
[2018-03-16] MEDS ORDERED: Esmolol Bolus Inj 100 MG/10 ML Vial IV.PUSH ONE (10:53)
[2018-03-16] MEDS ORDERED: Labetalol HCl Inj 100 MG/20 ML Vial IV.CONT ONE (10:53)
--- NOTE | 2018-03-16 11:25 | GIPROC ---
[facility] [address] [facility]. [facility], [id number] EGD WITH PEG PROCEDURE REPORT EXAM DATE: 03/16/2018 PATIENT NAME: Victor Manuel Root MR#: [id number] BIRTHDATE: 1935 ATTENDING: Antony Fortune MD ORDER #: [id number] BAND AID MACHINE OPERATOR: Maricarmen Nguyen RN and Rosa Gallagher RN STATUS: inpatient INDICATIONS: The patient is a 83 yr old male here for an EGD with PEG due to placement of PEG PROCEDURE PERFORMED: EGD with PEG placement MEDICATIONS: None and Per Anesthesia. TOPICAL ANESTHETIC: none CONSENT: The patient understands the risks and benefits of the procedure and understands that these risks include, but are not limited to: sedation, allergic reaction, infection, perforation and/or bleeding. Alternative means of evaluation and treatment include, among others: physical exam, x-rays, and/or surgical intervention. The patient elects to proceed with this endoscopic procedure. medical equipment was checked for proper function. Hand hygiene and appropriate measures for infection prevention was taken. After the risks, benefits and alternatives of the procedure were thoroughly explained, Informed consent was verified, confirmed and timeout was successfully executed by the treatment team. The patient was anesthetized with topical anesthesia and the Pentax [id number] endoscope was introduced through the mouth and advanced to the second portion of the duodenum. The instrument was slowly withdrawn as the mucosa was fully examined. The upper, middle, and distal third of the esophagus were carefully inspected and no abnormalities were noted. The z-line was well seen at the GEJ. The endoscope was pushed into the fundus which was normal including a retroflexed view. The antrum, first and second part of the duodenum were unremarkable. The stomach was then inflated with air, and by a combination of transillumination and manual palpation, the site for the gastrostomy tube placement was selected and marked on the anterior abdominal wall. The skin of the anterior abdomen was surgically prepped and draped with sterile towels. Utilizing strict sterile technique, the selected site was then anesthetized with 1% xylocaine by injection into the skin and subcutaneous tissue. A 1 cm incision was made through the skin and subcutaneous tissue, and the needle/cannula assembly was then passed through the abdominal wall and through the anterior wall of the stomach, maintaining visualization with the endoscope. A snare device previously placed through the instrument channel was then opened and placed around the cannula, the needle was removed, and the insertion wire was passed through the cannula and into the stomach lumen. The snare was then loosened from the cannula, and repositioned to snare the insertion wire. The snare was then pulled up to the endoscope distal tip, and the scope was then withdrawn bringing with it the snare and insertion wire. The insertion wire was then released from the snare, and then loop-attached to the Bard 22 Fr gastrostomy tube. Using the "pull technique", the G-tube was then pulled into place by traction on the insertion wire at the abdominal wall end. The G-tube insertion site was then cleansed once again, and the external bolster was placed over the tube to secure it to the abdominal wall. A sterile dressing was then applied, and the procedure terminated. no abnormalities The gastroscope was then slowly withdrawn and removed. ADVERSE EVENT: There were no complications. IMPRESSIONS: 1. The upper, middle, and distal third of the esophagus were carefully inspected and no abnormalities were noted. The z-line was well seen at the GEJ. The endoscope was pushed into the fundus which was normal including a retroflexed view. The antrum, first and second part of the duodenum were unremarkable. 2. Scar of previous G tube seen. 3. 22F 3 CM PEG tube placed successfully RECOMMENDATIONS: PEG recomendations: 1- NPO for 6 hours except for meds 2- Flush PEG tube every 6 hours with water and after each PEG feeding 3- May resume regular diet in the morning 4- May use Ensure or Boost etc. for PEG tube feeding REPEAT EXAM: procedure as needed Antony Fortune MD eSigned: Antony Fortune MD 03/16/2018 11:25 AM cc: PATIENT NAME: Victor Manuel Root MR#: [id number]
--- NOTE | 2018-03-16 14:10 | MB ---
cc: Rod Ortiz MD DATE: 03/16/2018 REASON FOR CONSULTATION: Bradycardia. HISTORY OF PRESENT ILLNESS: The patient is an 83-year-old male with a history of multiple medical problems including diabetes, hypertension, end-stage renal disease, CVA, who was brought to the hospital with mental status changes and possible transient ischemic attack. Apparently on monitoring, he has had a couple of occasions with heart rates dropping into the 30s. The patient denies any dizziness, syncope, near syncope, palpitations, chest pain, shortness of breath, nausea, abdominal pain, headache, pedal edema, paroxysmal nocturnal dyspnea. PAST MEDICAL HISTORY: 1. Diabetes. 2. Hypertension. 3. Hyperlipidemia. 4. Prostate cancer, status post radiation therapy. 5. Gout. 6. Not well documented history of peripheral vascular disease. 7. History of CVA with head CTs demonstrating old left basal ganglia and pontine infarcts. 8. Not well documented history of congestive heart failure. 9. Left basal ganglia intracranial hemorrhage 08/2010. 10. End-stage renal disease. 11. History of rhabdomyolysis 08/2010. PAST SURGICAL HISTORY: 1. Bladder surgery. 2. Cholecystectomy. 3. AV fistula of the right upper extremity in 2013. 4. AV fistula ligation 07/2017 due to excessive bleeding. CURRENT CARDIAC MEDICATIONS: 1. Ecotrin 81 mg p.o. daily. 2. Atorvastatin 10 mg p.o. daily. ALLERGIES: NO KNOWN DRUG ALLERGIES. FAMILY HISTORY: Noncontributory. SOCIAL HISTORY: The patient is a former smoker. There is no history of alcohol abuse. REVIEW OF SYSTEMS: As in the history of present illness, otherwise negative or noncontributory. He also denies headache, melena, cough, bright red blood per rectum. PHYSICAL EXAMINATION: VITAL SIGNS: His blood pressure 132/60 with a pulse of 59, respirations 18. GENERAL: He is a well-developed, thin male in no acute distress. NECK: Jugular venous pressure is normal. Carotid pulses are 2+ bilaterally and without definite bruit. CHEST: Reveals clear lungs sumner anteriorly. CARDIAC: He has a regular rhythm and rate without definite S3, S4, or murmur. A continuous hum is heard from his AV fistula. ABDOMEN: He has a soft, nontender abdomen. Bowel sounds are present. There is no definite hepatosplenomegaly. EXTREMITIES: Reveals no clubbing, cyanosis or edema. LABORATORY DATA: EKG from 03/11/2018 shows normal sinus rhythm, nonspecific intraventricular conduction delay, high lateral T-wave inversion, consider ischemia. LABORATORY DATA: Includes WBC 7.9, hemoglobin 13.3, platelets 189. Potassium of 5.4, BUN 71, creatinine 11.24, CK 319, with 0.5% MB fraction. Troponin 0.06. INR 1.1. IMPRESSION: Transient bradycardia in this 83-year-old male with a history of multiple medical problems including diabetes, hypertension, prostate cancer, end-stage renal disease, peripheral vascular disease, history of cerebrovascular accident. Available monitoring strips in the chart have been reviewed. I do not see the episodes of bradycardia. His EKGs do not show bradycardia. He is currently not on a environmental monitoring technician. The patient is a fair historian. There are no definite symptoms correlating with the bradycardia. He also remains normotensive during episodes of low heart rate. He may be having vasovagal-mediated events. One monitoring strip from the PACU suggests an episode of atrial tachycardia. His left ventricular function by echocardiogram this admission is excellent. RECOMMENDATIONS: 1. Place the patient back on a environmental monitoring technician. 2. No pacemaker implant unless he definitively demonstrates symptomatology correlating with low heart rates. MD FRANK Busby/florence , 01:48 PM , 01:59 PM OSVALDO
--- NOTE | 2018-03-16 14:27 | P.DIET ---
Nutritional Evaluation Type of nutrition evaluation: initial Nutrition consult regarding: Tube Feeding Nutrition screening: [facility] [place] (Consult for Tube Feeding/ PEG placement planned for today) Subjective Subjective Comments: Confused Objective - Diagnosis AMS - Objective % IBW: 97 (IBW = 154#) Body Weight Used for Calculations: Actual (68 kg) Energy Needs - Lower Range (kCal/kg): 28 Energy Needs - Upper Range (kCal/kg): 32 Lower Limit kCal/kg (kCals): 1,904 Upper Limit kCal/kg (kCals): 2,176 Lower Limit Protein Factor (Grams per Kg): 1.2 Upper Limit Protein Factor (Grams per Kg): 1.5 Lower Protein Needs (Protein): 82 Upper Protein Needs (Protein): 102 Dietitian Reviewed in Medical Record: Curent medications, Intake & Output, Labs , Medical history Diet Order: NPO Objective Comments: Hx includes ESRD on dialysis Assessment Assessment: PEG planned for today. To meet nutritional needs, recommend Nepro @ 50 mls/hr goal rate to provide 2160 kcals, 97 gms protein and 872 mls of free water. If bolus feeds are preferred, recommend 300 mls at bkfst, lunch, dinner and hs for total of 1200 mls of Nepro per day. Recommendations: Nepro @ 50 mls/hr goal For bolus: 300 ml bolus 4x/day Diet per ST Dietitian to Monitor: Lab values, Intake & Output, Tube feeding tolerance, Weight change, Swallow recommendations, Medical course
[2018-03-16] MEDS: Gabapentin 100 MG Capsule PO SCH ×2 (15:08→22:00)
[2018-03-16] MEDS: Sod Chloride 0.9% Inj 1,000 ML IV.CONT SCH (15:10)
--- NOTE | 2018-03-16 17:14 | MG ---
cc: Lit Kiran MD ELECTROENCEPHALOGRAM NUMBER: [id number] INDICATIONS: Old stroke, left basal ganglia, 80 years old, dementia, heparin, Lipitor. Diffuse 7-8 Hz rhythms are seen, occasionally some diffuse 5 Hz slowing is noted. No hemisphere asymmetry is noted. No epileptiform or seizure activity is seen. Photic stimulation is performed without significant posterior driving. IMPRESSION: Diffuse slowing consistent with a mild to moderate diffuse encephalopathy, but no focal abnormality was noted. No seizure activity was seen. Lit Kiran MD DJM/joe , 04:51 PM , 04:53 PM
--- NOTE | 2018-03-16 18:25 | P.PNNP ---
Subjective Interval history: Patient still confused not responding to simple questions. Physical Exam Vital signs: Vital Signs 03/15/18 20:00 03/16/18 00:00 03/16/18 08:00 Temperature 98.7 F 99 F 97.4 F L Pulse Rate 46 L 39 L 62 Respiratory Rate 16 16 18 Blood Pressure 104/51 L 105/50 L 112/53 L Pulse Oximetry 96 95 100 03/16/18 11:30 03/16/18 11:47 03/16/18 12:00 Temperature 98.2 F 98.1 F Pulse Rate 117 H 119 H 55 L Respiratory Rate 14 14 18 Blood Pressure 86/49 L 89/51 L 102/54 L Pulse Oximetry 100 100 98 03/16/18 15:47 Temperature 97.7 F Pulse Rate 61 Respiratory Rate 18 Blood Pressure 117/57 L Pulse Oximetry 95 Intake & Output 03/15/18 03/16/18 03/16/18 18:59 06:59 18:59 Intake Total 100 / 100 0 / 0 600 / 600 Output Total 700 / 700 Balance -600 / -600 0 / 0 600 / 600 Weight 68 kg Intake: IV 100 / 100 Flexbumin 25% Inj 100 ML @ 60 100 / 100 mls/hr IV.SIG WITH DIALYSIS PRN Rx#:[id number] Oral 0 / 0 Anesthesia Amount 600 / 600 Output: Hemodialysis Amount 700 / 700 Other: # Voids 0 Date of Last Bowel Movement 03/14/18 03/14/18 03/14/18 # Bowel Movements 1 0 Narrative: GENERAL: Well-developed well-nourished. In no acute distress. SKIN: Warm and dry. No lesions noted. CARDIOVASCULAR: Regular rate and rhythm. RESPIRATORY: No accessory muscle use. Clear to auscultation. Breath sounds equal bilaterally. GASTROINTESTINAL: Abdomen soft, non-tender, nondistended. Bowel sounds x4. MUSCULOSKELETAL: No clubbing or cyanosis. No edema. Assessment and Plan - Assessment (1) ESRD (end stage renal disease) on dialysis Code(s): N18.6 - End stage renal disease; Z99.2 - Dependence on renal dialysis Status: Acute Plan: Continue hemodialysis Tuesdays, and Saturdays. We will ask radiology to evaluate his AV dialysis to determine whether or not there is any evidence of stenosis which may be reducing clearances as his renal indices do appear to be relatively high. Medication should be adjusted for his end-stage renal disease when indicated. Avoid gadolinium. (2) Altered mental status Code(s): R41.82 - Altered mental status, unspecified Status: Acute Plan: Evaluation in progress. . (3) Hypertension Code(s): I10 - Essential (primary) hypertension Status: Acute (4) Diabetes mellitus Code(s): E11.9 - Type 2 diabetes mellitus without complications Status: Acute
[2018-03-16] MEDS: Heparin - SQ 10,000 UNITS/ML Vial SQ SCH (22:00)
[2018-03-16 23:51] LABS: CK-MB 0 (<5); CK-MM 100 (95-100)
--- NOTE | 2018-03-17 08:15 | P.PNCA ---
Subjective Interval history: Resting comfortably. Denies CP, dyspnea, abdominal pain, dizziness, palpitations, headache. Physical Exam Vital signs: Vital Signs 03/16/18 11:30 03/16/18 11:47 03/16/18 12:00 Temperature 98.2 F 98.1 F Pulse Rate 117 H 119 H 55 L Respiratory Rate 14 14 18 Blood Pressure 86/49 L 89/51 L 102/54 L Pulse Oximetry 100 100 98 03/16/18 15:47 03/16/18 20:00 03/17/18 00:00 Temperature 97.7 F 99.1 F 98.6 F Pulse Rate 61 63 65 Respiratory Rate 18 15 15 Blood Pressure 117/57 L 118/57 L 124/60 Pulse Oximetry 95 93 L 96 03/17/18 04:00 Temperature 98.9 F Pulse Rate 65 Respiratory Rate 15 Blood Pressure 119/60 Pulse Oximetry 93 L Intake & Output 03/16/18 03/17/18 03/17/18 18:59 06:59 18:59 Intake Total 2059 50 / 50 Balance 2059 50 / 50 Weight 68.9 kg Intake: IV 500 / 500 NS Inj 500 ML @ 30 mls/hr IV. 500 / 500 SIG .Q10H [facility] Rx#:[id number] Oral 960 / 960 50 / 50 Anesthesia Amount 600 / 600 Other: # Voids 0 Date of Last Bowel Movement 03/14/18 03/14/18 - Constitutional no acute distress - Routine Neck Exam Absent: JVD - Routine Respiratory Exam Present: CTA bilaterally - Routine Cardiovascular Exam Present: S1, S2, tachycardia, irregular rhythm. Absent: murmur, gallop - Routine Abdominal Exam Present: soft, normoactive bowel sounds. Absent: tenderness, organomegaly - Routine Extremities Exam Absent: cyanosis, clubbing, edema Assessment and Plan - Assessment (1) Bradycardia Code(s): R00.1 - Bradycardia, unspecified Status: Acute Plan: No further bradycardia. Now in atrial fib/flutter with mildly elevated HR. Patient asymptomatic. His thromboembolic risk is high. REC start oral diltiazem, monitor for recurrent bradycardia, oral anticoagulation therapy if no contraindications (2) Paroxysmal atrial flutter Code(s): I48.92 - Unspecified atrial flutter Status: Acute Plan: Appears to be in atrial fib/flutter at present, mildly increased HR. As noted, his thromboembolic risk is high; as such, recommend anticoagulation therapy if no contraindication. (3) Hypertension Code(s): I10 - Essential (primary) hypertension Status: Chronic Plan: Stable. Normotensive. - Plan Code Status: full code Discussed Condition With: patient (3) Hypertension Qualifiers: Hypertension type: essential hypertension Qualified Code(s): I10 - Essential (primary) hypertension
[2018-03-17] MEDS: Heparin - SQ 10,000 UNITS/ML Vial SQ SCH ×2 (08:16→21:23)
[2018-03-17] MEDS: Gabapentin 100 MG Capsule PO SCH ×2 (09:44→21:24)
[2018-03-17] MEDS: dilTIAZem 30 MG Tablet PO SCH ×4 (09:44→21:23)
[2018-03-17] MEDS: Albumin Human 25% Inj 100 ML IV.SIG PRN (10:12)
--- NOTE | 2018-03-17 12:01 | P.PNGI ---
Subjective Interval history: Pt seen in dialysis. No complaints at this time. PEG tube with scant amount of dried blood, no active drainage. PEG clamped. Abdominal binder in place <Devorah Saxena - Last Filed: 03/17/18 11:57> Physical Exam Vital signs: Vital Signs 03/16/18 12:00 03/16/18 15:47 03/16/18 20:00 Temperature 98.1 F 97.7 F 99.1 F Pulse Rate 55 L 61 63 Respiratory Rate 18 18 15 Blood Pressure 102/54 L 117/57 L 118/57 L Pulse Oximetry 98 95 93 L 03/17/18 00:00 03/17/18 04:00 03/17/18 08:00 Temperature 98.6 F 98.9 F 98.7 F Pulse Rate 65 65 63 Respiratory Rate 15 15 20 Blood Pressure 124/60 119/60 119/57 L Pulse Oximetry 96 93 L 93 L Intake & Output 03/16/18 03/17/18 03/17/18 18:59 06:59 18:59 Intake Total 2059 50 / 50 Output Total 1999 Balance 2059 50 / 50 -1999 Weight 68.9 kg Intake: IV 500 / 500 NS Inj 500 ML @ 30 mls/hr IV. 500 / 500 SIG .Q10H [facility] Rx#:[id number] Oral 960 / 960 50 / 50 Anesthesia Amount 600 / 600 Output: Hemodialysis Amount 1999 Other: # Voids 0 Date of Last Bowel Movement 03/14/18 03/14/18 03/16/18 - Constitutional no acute distress - Routine HEENT Exam Head: Present: normocephalic, atraumatic - Routine Respiratory Exam Absent: accessory muscle use - Routine Abdominal Exam Present: soft, normoactive bowel sounds. Absent: tenderness, distended Comments: PEG clamped. scant amount of dried blood. Abdominal binder in place - Routine Skin Exam Present: dry, warm - Routine Neurological Exam Present: alert <Devorah Saxena - Last Filed: 03/17/18 11:57> Vital signs: Vital Signs 03/16/18 15:47 03/16/18 20:00 03/17/18 00:00 Temperature 97.7 F 99.1 F 98.6 F Pulse Rate 61 63 65 Respiratory Rate 18 15 15 Blood Pressure 117/57 L 118/57 L 124/60 Pulse Oximetry 95 93 L 96 03/17/18 04:00 03/17/18 08:00 Temperature 98.9 F 98.7 F Pulse Rate 65 63 Respiratory Rate 15 20 Blood Pressure 119/60 119/57 L Pulse Oximetry 93 L 93 L Intake & Output 03/16/18 03/17/18 03/17/18 18:59 06:59 18:59 Intake Total 2059 50 / 50 Output Total 1999 Balance 2059 50 / 50 -1999 Weight 68.9 kg Intake: IV 500 / 500 NS Inj 500 ML @ 30 mls/hr IV. 500 / 500 SIG .Q10H [facility] Rx#:[id number] Oral 960 / 960 50 50 Anesthesia Amount 600 / 600 Output: Hemodialysis Amount 1999 Other: # Voids 0 Date of Last Bowel Movement 03/14/18 03/14/18 03/16/18 <Antony Fortune - Last Filed: 03/17/18 14:41> Results - Labs CBC & Chem 7: 03/15/18 04:51 03/14/18 10:16 Laboratory Results - last 24 hr 03/13/18 03/17/18 10:02 11:22 POC Glucose 109 Creatine Kinase 749.0 H CK-MM (CK-3) % 100 CK-MB (CK-2) % 0 CK-BB (CK-1) % None detected CK and CKMB Interp ND <Devorah Saxena - Last Filed: 03/17/18 11:57> - Labs CBC & Chem 7: 03/15/18 04:51 03/14/18 10:16 Laboratory Results - last 24 hr 03/13/18 03/17/18 10:02 11:22 POC Glucose 109 CK-MM (CK-3) % 100 CK-MB (CK-2) % 0 CK-BB (CK-1) % None detected CK and CKMB Interp ND <Antony Fortune - Last Filed: 03/17/18 14:41> Assessment and Plan (1) Dysphagia Status: Acute Code(s): R13.10 - Dysphagia, unspecified - Plan Assessment: - Dysphagia S/P EGD with PEG placement without complications. Seen by inspector chief recommending Nepro bolus feedings or continuous at 50 mL/hr Plan: OK to start TF per inspector chief recommendations Flush PEG q 6hrs and after each feeding Our service will sign off, please reconsult as needed Have pt follow up with GI after DC Pt has been seen and examined by myself and Dr. Fortune and this note is written on his behalf <Devorah Saxena - Last Filed: 03/17/18 11:57> (1) Dysphagia Status: Acute Code(s): R13.10 - Dysphagia, unspecified - Attending Attestation Seen and examined, diet well tolerated via tube, please notify us if needed again. <Antony Fortune - Last Filed: 03/17/18 14:41>
[2018-03-17] MEDS ORDERED: fentaNYL Citrate Inj 100 MCG/2 ML Ampul ONE (13:16)
[2018-03-17] MEDS: Sod Chloride 0.9% Inj 1,000 ML IV.CONT SCH (13:56)
--- NOTE | 2018-03-17 14:32 | P.RAD ---
Post Procedure Progress Note - Pre Procedure Diagnosis (1) AV (arteriovenous fistula) (2) ESRD (end stage renal disease) on dialysis - Post Procedure Diagnosis (1) ESRD (end stage renal disease) on dialysis (2) AV (arteriovenous fistula) - Procedure Information Procedure Date: 03/17/18 Supervising Radiologist: Cecil Sam MD Estimated blood loss (mL): 2 - Plan of Activity Patient to Unit: ROPU Patient Condition: Good Additional Comments: AV graft evaluated inflow widely patent. Stenosis evident in the out flow at the level of the axilla Successful PTBA to 8mm. Central stenosis evident at the junction of the innominate and the svc. this area had been previously stented. In Stent stenosis dilated to 10mm with only mild success. Full dictated report to follow See PACS Report for procedural detail/treatment.
--- NOTE | 2018-03-17 16:56 | P.PNIM ---
Subjective Interval history: Sleepy just had completed procedure in radiology. Physical Exam Vital signs: Vital Signs 03/16/18 20:00 03/17/18 00:00 03/17/18 04:00 Temperature 99.1 F 98.6 F 98.9 F Pulse Rate 63 65 65 Respiratory Rate 15 15 15 Blood Pressure 118/57 L 124/60 119/60 Pulse Oximetry 93 L 96 93 L 03/17/18 08:00 03/17/18 14:40 03/17/18 14:55 Temperature 98.7 F 97.6 F Pulse Rate 63 47 L 44 L Respiratory Rate 18 Blood Pressure 119/57 L 116/50 L Pulse Oximetry 93 L 91 L 99 03/17/18 15:25 03/17/18 15:55 03/17/18 16:37 Temperature 98.1 F Pulse Rate 60 57 L 80 Respiratory Rate 18 Blood Pressure 117/54 L 123/48 L 118/57 L Pulse Oximetry 98 99 100 Intake & Output 03/16/18 03/17/18 03/17/18 18:59 06:59 18:59 Intake Total 2059 50 / 50 Output Total 1999 Balance 2059 50 / 50 -1999 Weight 68.9 kg Intake: IV 500 / 500 NS Inj 500 ML @ 30 mls/hr IV. 500 / 500 SIG .Q10H [facility] Rx#:[id number] Oral 960 / 960 50 / 50 Anesthesia Amount 600 / 600 Output: Hemodialysis Amount 1999 Other: # Voids 0 Date of Last Bowel Movement 03/14/18 03/14/18 03/16/18 Narrative: GENERAL: Well-developed well-nourished. In no acute distress. SKIN: Warm and dry. No lesions noted. CARDIOVASCULAR: Regular rate and rhythm. RESPIRATORY: No accessory muscle use. Clear to auscultation. Breath sounds equal bilaterally. GASTROINTESTINAL: Abdomen soft, non-tender, nondistended. Bowel sounds x4. MUSCULOSKELETAL: No clubbing or cyanosis. No edema. Neuro: Sleepy, opens eyes to voice Results - Labs CBC & Chem 7: 03/15/18 04:51 03/14/18 10:16 Laboratory Results - last 24 hr 03/13/18 03/17/18 10:02 11:22 POC Glucose 109 CK-MM (CK-3) % 100 CK-MB (CK-2) % 0 CK-BB (CK-1) % None detected CK and CKMB Interp ND - Procedures EG placement with GI 03/17AV fistula stenosis status post dilatation with interventional radiology Dr. Logan Sam Assessment and Plan - Plan 83 yo dialysis patient who residents in long-term sent by [facility] for progressive AMS, normally patient A&O and able to preform normal ADLs on his own. 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 No signs of infectious etiology, however anuric so can't check UA, was treated with ceftriaxone with no improvement, antibiotic discontinued. TSH stable. RPR negative. B12 high -Psychiatry consulted, no acute psychiatric intervention indicated at this time , recommend neurology consultation. -Neurology consulted, recommended aspirin for possible TIA and checking echo and EEG - echocardiogram: The left ventricular systolic function is hyperdynamic with an estimated ejection fraction in the range of 65- 70%. Normal left ventricular size. Moderate concentric left ventricular hypertrophy. No regional wall motion abnormalities are present. The tricuspid valve is not well visualized. There is trace tricuspid valve regurgitation. Normal estimated pulmonary pressures. - EEG: Overall, [id number] slowing of background consistent with encephalopathic process. No epileptiform features. -Carotid ultrasounds with no significant stenosis -Continue to hold tramadol and baclofen -Speech following, PT/OT -Right upper extremity weakness, left facial droop, dysphasia, - continue aspirin and statin. -Daughter voices concerns over dysphasia and nutrition, offered NG tube however declined. Prefers PEG placement Status post PEG placement by GI yesterday with tube feeds to start Nepro today. ESRD on HD TUTHSat -Nephrology following, appreciate assistance Elevated total CK now improved Rhabdomyolysis secondary to agitation? No fevers -Status post gentle hydration, slight decrease in total CK. Atrial fibrillation -Recurrence of decrease heart rate yesterday now resolved, appreciate cardiology evaluation. 2D echo with normal ventricular function, recommended restarting Cardizem due to tachycardia this morning. 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
--- NOTE | 2018-03-17 17:13 | P.PNNP ---
Subjective Interval history: Pt s/p angioplasty of AVF today. HD today as per regular schedule. PEG in place. Remains confused and non-conversive. When asked if he knows where he is and if he knows who I am, only shakes his head yes, but does not verbalize. Physical Exam Vital signs: Vital Signs 03/16/18 20:00 03/17/18 00:00 03/17/18 04:00 Temperature 99.1 F 98.6 F 98.9 F Pulse Rate 63 65 65 Respiratory Rate 15 15 15 Blood Pressure 118/57 L 124/60 119/60 Pulse Oximetry 93 L 96 93 L 03/17/18 08:00 03/17/18 14:40 03/17/18 14:55 Temperature 98.7 F 97.6 F Pulse Rate 63 47 L 44 L Respiratory Rate 18 Blood Pressure 119/57 L 116/50 L Pulse Oximetry 93 L 91 L 99 03/17/18 15:25 03/17/18 15:55 03/17/18 16:37 Temperature 98.1 F Pulse Rate 60 57 L 80 Respiratory Rate 18 Blood Pressure 117/54 L 123/48 L 118/57 L Pulse Oximetry 98 99 100 Intake & Output 03/16/18 03/17/18 03/17/18 18:59 06:59 18:59 Intake Total 2059 50 / 50 Output Total 1999 Balance 2059 50 / 50 -1999 Weight 68.9 kg Intake: IV 500 / 500 NS Inj 500 ML @ 30 mls/hr IV. 500 / 500 SIG .Q10H [facility] Rx#:[id number] Oral 960 / 960 50 / 50 Anesthesia Amount 600 / 600 Output: Hemodialysis Amount 1999 Other: # Voids 0 Date of Last Bowel Movement 03/14/18 03/14/18 03/16/18 - Constitutional no acute distress - Routine HEENT Exam Head: Present: normocephalic - Routine Neck Exam Present: supple - Routine Respiratory Exam Present: CTA bilaterally - Routine Cardiovascular Exam Present: RRR, S1, S2 - Routine Abdominal Exam Present: soft Comments: PEG present - Routine Extremities Exam Absent: edema - Routine Skin Exam Present: intact - Routine Neurological Exam Present: alert. Absent: oriented X3 - Detailed Neurological Exam: Coma Scale Verbal Response: Confused - Routine Psychiatric Exam Absent: normal affect, normal thought process Assessment and Plan - Assessment (1) ESRD (end stage renal disease) on dialysis Code(s): N18.6 - End stage renal disease; Z99.2 - Dependence on renal dialysis Status: Acute Plan: Continue hemodialysis Tuesdays, and Saturdays. Reviewed IR report showing outflow issue at axilla with successful PTBA. 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 Mildly successful dilatation performed. Medication should be adjusted for his end-stage renal disease when indicated. Avoid gadolinium. (2) Altered mental status Code(s): R41.82 - Altered mental status, unspecified Status: Acute Plan: Etiology remains unclear. (3) Hypertension Code(s): I10 - Essential (primary) hypertension Status: Chronic Qualifiers: Hypertension type: essential hypertension Qualified Code(s): I10 - Essential (primary) hypertension (4) Diabetes mellitus Code(s): E11.9 - Type 2 diabetes mellitus without complications Status: Acute
--- NOTE | 2018-03-17 18:33 | ECG ---
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
[2018-03-18 07:24] LABS: Baso % (Auto) 0.6 % (0.0-2.0); Eos # (Auto) 0.3 th/mm3 (0.0-0.4); Eos % (Auto) 4.6 % (0.0-4.0); Hematocrit 36.3 % (39.0-51.0); Hemoglobin 11.4 gm/dL (13.0-17.0); Lymph # (Auto) 0.9 th/mm3 (1.0-4.8); Lymph % (Auto) 13.2 % (9.0-44.0); Mean Corpuscular HGB Conc 31.5 % (32.0-36.0); Mean Corpuscular Hemoglobin 25.3 pg (27.0-34.0); Mean Corpuscular Volume 80.4 fL (80.0-100.0); Mean Platelet Volume 8.2 fL (7.0-11.0); Mono # (Auto) 1.1 th/mm3 (0.0-0.9); Mono % (Auto) 15.4 % (0.0-8.0); Neut # (Auto) 4.7 th/mm3 (1.8-7.7); Neut % (Auto) 66.2 % (16.0-70.0); Platelet Count 175 th/mm3 (150-450); Red Blood Count 4.52 mil/mm3 (4.50-5.90); Red Cell Distribution Width 18.3 % (11.6-17.2); White Blood Count 7.1 th/mm3 (4.0-11.0)
[2018-03-18 07:33] LABS: Albumin 3.6 g/dL (3.4-5.0); Calcium 9.5 mg/dL (8.5-10.1); Carbon Dioxide 30.1 meq/L (21.0-32.0); Phosphorus 7.5 mg/dL (2.5-4.9); Potassium 4.5 meq/L (3.5-5.1)
--- NOTE | 2018-03-18 08:23 | IR ---
EXAM DATE: 03/17/2018 2:57 PM EDT AGE/SEX: 83 years / Male INDICATIONS: Patient with history of end stage renal disease in need of evaluation of AV shunt. CLINICAL DATA: This is the patient's initial encounter. Patient reports that signs and symptoms have been present for 2 weeks and indicates a pain score of Nonresponsive. MEDICAL/SURGICAL HISTORY: Dementia. Hypertension. Diabetes. CHF, CVA, PVD, RUE AVF, HLD, Pro state cancer Cholecystectomy. Bladder surgery, AV fistula 2013, AV fistula ligation 07/2017 due to ex cessive bleeding COMPARISON: No prior exams available for comparison. FLUORO TIME (min): 6.1 IMAGE SERIES: 9 ACCESS SITE: Right AV fistula SEDATION TIME (min): 30 CONTRAST (cc): 80cc Visipaque (iodixanol) MEDICATION(S): 1.5mg midazolam (Versed) IV 75mcg fentanyl (Sublimaze) IV DEVICE(S): Right [employer] Balloon AV fistula Cylinder Filler [id number] 135CM Right [employer] WORKER balloon AV fistula Cylinder Filler [id number] 135CM Right AV fistula Syvek pad PROCEDURE: 1. Ultrasound guided puncture of the arterial limb of the fistula. 2. Evaluation of dialysis graft. 3. Upper extremity venogram 4. Superior venacavogram. 5. Conscious sedation with continuous EKG and oximetry monitoring. 6. Angioplasty of a venous stenosis at the level of the axillary vein. 7. Angioplasty of a previously stented central venous stenosis. The risks, benefits and alternatives to the procedure were explained and verbal and written consent w as obtained. The site was prepped in sterile fashion. Full sterile technique was used, including ca p, mask, sterile gloves and gown and a large sterile sheet. Hand hygiene and 2% chlorhexidine and/or betadine/alcohol prep was utilized per protocol for cutaneous antisepsis. Sterile gel and sterile p robe cover were utilized for ultrasound guidance. The skin and subcutaneous tissues were infiltrated with local anesthetic solution. With ultrasound and fluoroscopic guidance the arterial limb of the fistula was punctured directed tow airam the venous anastomosis. Positive contrast was injected to evaluate the fistula and outflow of th e upper extremity and superior venacava. Results: The arterial anastomosis is widely patent. The patient's AV graft is well-positioned and is widely patent. It appears to be in satisfactory condition. The outflow from the graft is via the brac hial vein. There has been previous stent placement in the distal aspect of the brachial vein. There w as focal high-grade stenosis distal to the stent at its junction with the axillary vein. In addition, there has been previous stent placement extending from the innominate vein and into the SVC. There i s high-grade stenosis within the stented segment of central venous system as well. A 6 Czech sheath was passed into the interposition graft. A 0.035 wire was advanced into the SVC. A 7 mm x 4 cm balloon was advanced over the wire. The venous stenosis at the level the axillary vein wa s treated with high-pressure prolonged angioplasty. Follow-up imaging demonstrated complete resolutio n of the stenosis. Attention was then directed towards the central venous stenosis. This was treated with a 10 mm x 4 cm balloon. Follow-up angiography demonstrated partial resolution of the stenosis. This was treated aga in with high-pressure angioplasty but appeared fairly recalcitrant to dilation. There was excellent f low through the fistula at the conclusion of the procedure. The patient tolerated the procedure well and there were no complications. Conscious sedation was per formed with the prescribed dosages and duration as above in the presence of an independent trained ra diology nurse to assist in the monitoring of the patient. EKG and oximetry remained stable throughou t the procedure. CONCLUSION: 1. Uncomplicated evaluation of the interposition graft as above. 2. Successful angioplasty of a venous stenosis in the axillary vein. 3. Angioplasty of a previously placed stent within the central venous system. There was only partial resolution of the stenosis. There was brisk flow through the interposition graft at the conclusion o f the study. Electronically signed by: Cecil Sam MD 03/18/2018 8:22 AM EDT
[2018-03-18] MEDS: Heparin - SQ 10,000 UNITS/ML Vial SQ SCH ×2 (09:06→22:49)
[2018-03-18] MEDS: dilTIAZem 30 MG Tablet PO SCH (09:07)
[2018-03-18] MEDS: Gabapentin 100 MG Capsule PO SCH ×2 (09:07→22:49)
--- NOTE | 2018-03-18 09:56 | P.DS ---
Date of admission: 03/17/18 14:45 Primary care physician: Jacinto Chakraborty MD Anticipated date of discharge: 03/18/18 Brief History from admission: This is a 83 yo male [facility] patient. History obtained form Dr. Garcia ER physician, who obtained hx from [facility], who obtained hx from [facility] nurse. Over the past few days patient apparently acting more confused. Has been refusing medication, including his lactulose. Today apparently mental status was worse so concern was for so was sent to ER. Ammonia in the ER was 22. He is a dialysis patient, apparently has not missed any dialysis, Cr 11.42. Patient update on day of discharge: No changes overnight. Patient's still with some expressive aphasia follow simple commands. DS: Diagnosis - Discharge Diagnosis (1) TIA (transient ischemic attack) Status: Acute Diagnosis: Principal (2) Malnutrition Status: Chronic Diagnosis: Secondary (3) Altered mental status Status: Acute Diagnosis: Principal (4) ESRD (end stage renal disease) on dialysis Status: Chronic Diagnosis: Secondary (5) Hypertension Status: Chronic Diagnosis: Secondary DS: Summary Hospital Course: These are the medical issues addressed during this hospitalization: 83 yo dialysis patient who residents in [facility] sent by [facility] for progressive AMS, normally patient A&O and able to preform normal ADLs on his own. 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 No signs of infectious etiology, however anuric so can't check UA, was treated with ceftriaxone with no improvement, antibiotic discontinued. TSH stable. RPR negative. B12 high -Psychiatry consulted, no acute psychiatric intervention indicated at this time , recommend neurology consultation. -Neurology consulted, recommended aspirin for possible TIA and checking echo and EEG - echocardiogram: The left ventricular systolic function is hyperdynamic with an estimated ejection fraction in the range of 65- 70%. Normal left ventricular size. Moderate concentric left ventricular hypertrophy. No regional wall motion abnormalities are present. The tricuspid valve is not well visualized. There is trace tricuspid valve regurgitation. Normal estimated pulmonary pressures. - EEG: Overall, [id number] slowing of background consistent with encephalopathic process. No epileptiform features. -Carotid ultrasounds with no significant stenosis -Continue to hold tramadol and baclofen -Speech following, PT/OT -Right upper extremity weakness, left facial droop, dysphasia, - continue aspirin and statin. -Daughter voices concerns over dysphasia and nutrition, offered NG tube however declined. Prefers PEG placement Status post PEG placement by GI 03/16 with tube feeds which patient is currently tolerating Nepro ESRD on HD TUTHSat -Nephrology following, appreciate assistance Elevated total CK now improved Rhabdomyolysis secondary to agitation? No fevers -Status post gentle hydration, slight decrease in total CK. Atrial fibrillation -Recurrence of decrease heart rate yesterday now resolved, appreciate cardiology evaluation. 2D echo with normal ventricular function, recommended restarting Cardizem due to transient tachycardia. 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 with interventional radiology 03/17 Bilat SCDs, subcu heparin - Time Spent with Patient Total time spent providing and/or coordinating discharge services: Less than 30 minutes Exam Vital signs: Vital Signs 03/17/18 14:40 03/17/18 14:55 03/17/18 15:25 Temperature 97.6 F Pulse Rate 47 L 44 L 60 Respiratory Rate 18 18 18 Blood Pressure 116/50 L 117/54 L Pulse Oximetry 91 L 99 98 03/17/18 15:55 03/17/18 16:37 03/17/18 20:00 Temperature 98.1 F 99.5 F Pulse Rate 57 L 80 126 H Respiratory Rate 18 18 20 Blood Pressure 123/48 L 118/57 L 127/59 L Pulse Oximetry 99 100 99 03/17/18 23:58 03/18/18 00:00 03/18/18 04:00 Temperature 99.5 F 99.5 F Pulse Rate 70 123 H 111 H Respiratory Rate 15 15 Blood Pressure 114/71 112/54 L Pulse Oximetry 96 96 03/18/18 08:00 Temperature 98.4 F Pulse Rate 68 Respiratory Rate 16 Blood Pressure 113/56 L Pulse Oximetry 98 Intake & Output 03/17/18 03/18/18 03/18/18 18:59 06:59 18:59 Intake Total 50 / 50 Output Total 1999 Balance -1999 -1999 50 / 50 Weight 70.1 kg Intake: Oral 50 / 50 Output: Hemodialysis Amount 1999 Other: Date of Last Bowel Movement 03/16/18 03/16/18 Narrative: GENERAL: This is a well-nourished, well-developed patient, in no apparent distress. CARDIOVASCULAR: Regular rate and rhythm RESPIRATORY: Clear to auscultation. Breath sounds equal bilaterally. No wheezes , rales, or rhonchi. GASTROINTESTINAL: Abdomen soft, non-tender, nondistended. Normal active bowel sounds MUSCULOSKELETAL: Extremities without clubbing, cyanosis, or edema. Atrophic NEURO: Pleasantly confused and follows directions. Right sided with mild weakness 4 out of 5 motor strength with expressive aphasia Results Procedures completed during hospitalization: EG placement with GI 03/17AV fistula stenosis status post dilatation with interventional radiology Dr. Logan Sam Labs on day of discharge: Labs from last 24 hours 03/18/18 03/18/18 03/17/18 06:12 06:12 11:22 WBC 7.1 RBC 4.52 Hgb 11.4 L Hct 36.3 L MCV 80.4 MCH 25.3 L MCHC 31.5 L RDW 18.3 H Plt Count 175 MPV 8.2 Neut % (Auto) 66.2 Lymph % (Auto) 13.2 Nash % (Auto) 15.4 H Eos % (Auto) 4.6 H Baso % (Auto) 0.6 Neut # (Auto) 4.7 Lymph # (Auto) 0.9 L Nash # (Auto) 1.1 H Eos # (Auto) 0.3 Baso # (Auto) 0.0 WBC Differential . Differential Comment Auto diff final Sodium 143 Potassium 4.5 Chloride 100 Carbon Dioxide 30.1 Anion Gap 13 BUN 55 H Creatinine 9.46 H Estimated GFR 6 L POC Glucose 109 Random Glucose 116 H Calcium 9.5 Phosphorus 7.5 H Albumin 3.6 - Impressions ITS Impressions Chest X-Ray 03/09/18 00:00 CONCLUSION: 1. No acute abnormality or significant interval change. Head CT 03/11/18 12:01 CONCLUSION: 1. No acute intracranial abnormality or significant interval change. . Carotid Doppler Study 03/14/18 00:00 CONCLUSION: 1. Right Internal Carotid Artery: No significant stenosis; minimal atherosclerotic plaque is visualized. 2. Left Internal Carotid Artery: No significant stenosis; minimal atherosclerotic plaque is visualized. 3. Antegrade flow both vertebral arteries. Head MRI 03/15/18 00:00 CONCLUSION: 1. No acute infarct or other acute intracranial abnormality. 2. 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 3. 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 4. Mild chronic white matter changes. Shunt Study 03/17/18 17:42 CONCLUSION: 1. Uncomplicated evaluation of the interposition graft as above. 2. Successful angioplasty of a venous stenosis in the axillary vein. 3. Angioplasty of a previously placed stent within the central venous system. There was only partial resolution of the stenosis. There was brisk flow through the interposition graft at the conclusion of the study. Discharge Plan - Discharge Disposition Patient Disposition: 03 Discharge to SNF - Discharge Condition Condition: Stable - Discharge Order Discharge Orders: Discharge Order (Routine); Ordered 03/18/18 Ordered By: Briseida Montes - Physicians Team Primary Care Provider: Jacinto Chakraborty V Attending Provider: Briseida Montes Other Providers: Philip Pastrana MD ; Memo Walton MD ; Maribel Alba MD ; Antony Fortune MD ; Rod Ortiz MD
--- NOTE | 2018-03-18 11:39 | P.PNIM ---
Subjective Interval history: No changes in neurological status per nursing staff. Patient continues to have A. fib with RVR with heart rate going to the 128 despite treatment. Physical Exam Vital signs: Vital Signs 03/17/18 14:40 03/17/18 14:55 03/17/18 15:25 Temperature 97.6 F Pulse Rate 47 L 44 L 60 Respiratory Rate 18 18 18 Blood Pressure 116/50 L 117/54 L Pulse Oximetry 91 L 99 98 03/17/18 15:55 03/17/18 16:37 03/17/18 20:00 Temperature 98.1 F 99.5 F Pulse Rate 57 L 80 126 H Respiratory Rate 18 18 20 Blood Pressure 123/48 L 118/57 L 127/59 L Pulse Oximetry 99 100 99 03/17/18 23:58 03/18/18 00:00 03/18/18 04:00 Temperature 99.5 F 99.5 F Pulse Rate 70 123 H 111 H Respiratory Rate 15 15 Blood Pressure 114/71 112/54 L Pulse Oximetry 96 96 03/18/18 08:00 Temperature 98.4 F Pulse Rate 68 Respiratory Rate 16 Blood Pressure 113/56 L Pulse Oximetry 98 Intake & Output 03/17/18 03/18/18 03/18/18 18:59 06:59 18:59 Intake Total 50 / 50 Output Total 1999 Balance -1999 50 / 50 Weight 70.1 kg Intake: Oral 50 / 50 Output: Hemodialysis Amount 1999 Other: Date of Last Bowel Movement 03/16/18 03/16/18 Narrative: GENERAL: Well-developed well-nourished. In no acute distress. SKIN: Warm and dry. No lesions noted. CARDIOVASCULAR: Irregular rate and rhythm. RESPIRATORY: No accessory muscle use. Clear to auscultation. Breath sounds equal bilaterally. GASTROINTESTINAL: Abdomen soft, non-tender, nondistended. Bowel sounds x4. MUSCULOSKELETAL: No clubbing or cyanosis. No edema. Neuro: Awake and alert with aphasia follow simple commands. Right upper extremity with 4.5 out of 5 motor strength Results - Labs CBC & Chem 7: 03/18/18 06:12 03/18/18 06:12 Laboratory Results - last 24 hr 03/18/18 03/18/18 06:12 06:12 WBC 7.1 RBC 4.52 Hgb 11.4 L Hct 36.3 L MCV 80.4 MCH 25.3 L MCHC 31.5 L RDW 18.3 H Plt Count 175 MPV 8.2 Neut % (Auto) 66.2 Lymph % (Auto) 13.2 [place] % (Auto) 15.4 H Eos % (Auto) 4.6 H Baso % (Auto) 0.6 Neut # (Auto) 4.7 Lymph # (Auto) 0.9 L [place] # (Auto) 1.1 H Eos # (Auto) 0.3 Baso # (Auto) 0.0 WBC Differential . Differential Comment Auto diff final Sodium 143 Potassium 4.5 Chloride 100 Carbon Dioxide 30.1 Anion Gap 13 BUN 55 H Creatinine 9.46 H Estimated GFR 6 L Random Glucose 116 H Calcium 9.5 Phosphorus 7.5 H Albumin 3.6 - Imaging Impressions Shunt Study 03/17/18 17:42 CONCLUSION: 1. Uncomplicated evaluation of the interposition graft as above. 2. Successful angioplasty of a venous stenosis in the axillary vein. 3. Angioplasty of a previously placed stent within the central venous system. There was only partial resolution of the stenosis. There was brisk flow through the interposition graft at the conclusion of the study. - Procedures EG placement with GI 03/17AV fistula stenosis status post dilatation with interventional radiology Dr. Logan Sam Assessment and Plan - Assessment (1) TIA (transient ischemic attack) Code(s): G45.9 - Transient cerebral ischemic attack, unspecified Status: Acute (2) Malnutrition Code(s): E46 - Unspecified protein-calorie malnutrition Status: Chronic (3) Altered mental status Code(s): R41.82 - Altered mental status, unspecified Status: Acute (4) ESRD (end stage renal disease) on dialysis Code(s): N18.6 - End stage renal disease; Z99.2 - Dependence on renal dialysis Status: Chronic (5) Hypertension Code(s): I10 - Essential (primary) hypertension Status: Chronic - Plan 83 yo dialysis patient who residents in [facility] sent by [facility] for progressive AMS, normally patient A&O and able to preform normal ADLs on his own. 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 No signs of infectious etiology, however anuric so can't check UA, was treated with ceftriaxone with no improvement, antibiotic discontinued. TSH stable. RPR negative. B12 high -Psychiatry consulted, no acute psychiatric intervention indicated at this time , recommend neurology consultation. -Neurology consulted, recommended aspirin for possible TIA and checking echo and EEG - echocardiogram: The left ventricular systolic function is hyperdynamic with an estimated ejection fraction in the range of 65- 70%. Normal left ventricular size. Moderate concentric left ventricular hypertrophy. No regional wall motion abnormalities are present. The tricuspid valve is not well visualized. There is trace tricuspid valve regurgitation. Normal estimated pulmonary pressures. - EEG: Overall, [id number] slowing of background consistent with encephalopathic process. No epileptiform features. -Carotid ultrasounds with no significant stenosis -Continue to hold tramadol and baclofen -Speech following, PT/OT -Right upper extremity weakness, left facial droop, dysphasia, - continue aspirin and statin. -Daughter voices concerns over dysphasia and nutrition, offered NG tube however declined. Prefers PEG placement Status post PEG placement by GI 03/16 Started Nepro for tube feeds and advance to goal as tolerated. ESRD on HD TUTHSat -Nephrology following, appreciate assistance Elevated total CK now improved Rhabdomyolysis secondary to agitation? No fevers -Status post gentle hydration, slight decrease in total CK. Atrial fibrillation with RVR -Recurrence of decrease heart rate yesterday now resolved, appreciate cardiology evaluation. 2D echo with normal ventricular function, recommended restarting Cardizem due to tachycardia this morning. Due to persistent tachycardia, will adjust Cardizem dosing, will continue monitor blood pressure Previous history of hemorrhagic infarct and risks of briefly with anticoagulation. Continue continue with aspirin. 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 Bilat SCDs, subcu heparin Discharge Planning: will need [facility] (5) Hypertension Qualifiers: Hypertension type: essential hypertension Qualified Code(s): I10 - Essential (primary) hypertension
[2018-03-18] MEDS: dilTIAZem 60 MG Tablet PO SCH ×3 (12:22→22:49)
[2018-03-18] MEDS: Sod Chloride 0.9% Inj 1,000 ML IV.CONT SCH (12:29)
--- NOTE | 2018-03-18 12:37 | P.PNCA ---
Subjective Interval history: Denies CP, abdominal pain, nausea, dizziness, palpitations. Physical Exam Vital signs: Vital Signs 03/17/18 14:40 03/17/18 14:55 03/17/18 15:25 Temperature 97.6 F Pulse Rate 47 L 44 L 60 Respiratory Rate 18 18 18 Blood Pressure 116/50 L 117/54 L Pulse Oximetry 91 L 99 98 03/17/18 15:55 03/17/18 16:37 03/17/18 20:00 Temperature 98.1 F 99.5 F Pulse Rate 57 L 80 126 H Respiratory Rate 18 18 20 Blood Pressure 123/48 L 118/57 L 127/59 L Pulse Oximetry 99 100 99 03/17/18 23:58 03/18/18 00:00 03/18/18 04:00 Temperature 99.5 F 99.5 F Pulse Rate 70 123 H 111 H Respiratory Rate 15 15 Blood Pressure 114/71 112/54 L Pulse Oximetry 96 96 03/18/18 08:00 Temperature 98.4 F Pulse Rate 68 Respiratory Rate 16 Blood Pressure 113/56 L Pulse Oximetry 98 Intake & Output 03/17/18 03/18/18 03/18/18 18:59 06:59 18:59 Intake Total 1000 / 1000 50 / 50 Output Total 1999 Balance -1000 / -1000 50 / 50 Weight 70.1 kg Intake: IV 1000 / 1000 NS Inj 1,000 ML @ 40 mls/hr IV. 1000 / 1000 CONT .Q24H [facility] Rx#:[id number] Oral 50 / 50 Output: Hemodialysis Amount 1999 Other: Date of Last Bowel Movement 03/16/18 03/16/18 - Constitutional no acute distress - Routine Neck Exam Absent: JVD - Routine Respiratory Exam Present: CTA bilaterally - Routine Cardiovascular Exam Present: S1, S2, tachycardia, irregular rhythm. Absent: murmur, gallop - Routine Abdominal Exam Present: soft, normoactive bowel sounds. Absent: tenderness, organomegaly - Routine Extremities Exam Absent: cyanosis, clubbing, edema Assessment and Plan - Assessment (1) Bradycardia Code(s): R00.1 - Bradycardia, unspecified Status: Acute Plan: No further bradycardia. Remains in atrial fib/flutter with mildly elevated HR' s. Patient asymptomatic. His thromboembolic risk is high. REC agree with increasing oral diltiazem dose, monitor for recurrent bradycardia , to continue daily aspirin with history of hemorrhagic CVA. Dr. Doan to see patient PRN over the weekend. (2) Paroxysmal atrial flutter Code(s): I48.92 - Unspecified atrial flutter Status: Acute Plan: Remains in atrial fib/flutter at present, mildly increased HR's. Agree with increased diltiazem dosing. Thromboembolic risk is high; to continue with daily aspirin in light of history of hemorrhagic CVA. (3) Hypertension Code(s): I10 - Essential (primary) hypertension Status: Chronic Plan: Stable. Normotensive. - Plan Code Status: full code Discussed Condition With: patient (3) Hypertension Qualifiers: Hypertension type: essential hypertension Qualified Code(s): I10 - Essential (primary) hypertension
--- NOTE | 2018-03-18 13:37 | P.PNNP ---
Subjective Interval history: Pt a little more alert today. Talking. <Elizabeth Brandt R - Last Filed: 03/18/18 13:33> Physical Exam Vital signs: Vital Signs 03/17/18 14:40 03/17/18 14:55 03/17/18 15:25 Temperature 97.6 F Pulse Rate 47 L 44 L 60 Respiratory Rate 18 18 18 Blood Pressure 116/50 L 117/54 L Pulse Oximetry 91 L 99 98 03/17/18 15:55 03/17/18 16:37 03/17/18 20:00 Temperature 98.1 F 99.5 F Pulse Rate 57 L 80 126 H Respiratory Rate 18 18 20 Blood Pressure 123/48 L 118/57 L 127/59 L Pulse Oximetry 99 100 99 03/17/18 23:58 03/18/18 00:00 03/18/18 04:00 Temperature 99.5 F 99.5 F Pulse Rate 70 123 H 111 H Respiratory Rate 15 15 Blood Pressure 114/71 112/54 L Pulse Oximetry 96 96 03/18/18 08:00 03/18/18 12:00 Temperature 98.4 F 97.8 F Pulse Rate 68 85 Respiratory Rate 16 16 Blood Pressure 113/56 L 108/51 L Pulse Oximetry 98 93 L Intake & Output 03/17/18 03/18/18 03/18/18 18:59 06:59 18:59 Intake Total 1000 / 1000 50 / 50 Output Total 1999 Balance -1000 / -1000 50 / 50 Weight 70.1 kg Intake: IV 1000 / 1000 NS Inj 1,000 ML @ 40 mls/hr IV. 1000 / 1000 CONT .Q24H [facility] Rx#:[id number] Oral 50 / 50 Output: Hemodialysis Amount 1999 Other: Date of Last Bowel Movement 03/16/18 03/16/18 - Constitutional no acute distress - Routine HEENT Exam Head: Present: normocephalic - Routine Neck Exam Present: supple - Routine Respiratory Exam Present: CTA bilaterally - Routine Cardiovascular Exam Present: RRR, S1, S2 Comments: Noted A fib RVR this AM, but appears to be in NSR per auscultation this afternoon. Cardiology on board. - Routine Extremities Exam Absent: edema - Routine Skin Exam Present: intact - Routine Neurological Exam Present: alert. Absent: oriented X3 <Elizabeth Brandt - Last Filed: 03/18/18 13:33> Vital signs: Vital Signs 03/20/18 16:00 03/20/18 20:00 03/21/18 00:05 Temperature 97.6 F 98.2 F Pulse Rate 61 92 H 76 Respiratory Rate 17 18 Blood Pressure 98/58 L 123/57 L Pulse Oximetry 95 92 L 03/21/18 00:45 03/21/18 04:26 03/21/18 08:00 Temperature 98.4 F 98.0 F 98.3 F Pulse Rate 76 69 64 Respiratory Rate 20 18 18 Blood Pressure 124/58 L 153/67 H 127/60 Pulse Oximetry 94 L 95 97 Intake & Output 03/20/18 03/21/18 03/21/18 18:59 06:59 18:59 Intake Total 0 / 0 480 / 480 Output Total 0 / 0 Balance 0 / 0 480 / 480 Weight 70 kg Intake: Oral 0 / 0 Tube Feeding 480 / 480 Output: Urine 0 / 0 Other: # Voids 0 # Bowel Movements 0 0 <Marivel Arciniega - Last Filed: 03/21/18 12:18> Assessment and Plan - Assessment (1) ESRD (end stage renal disease) on dialysis Code(s): N18.6 - End stage renal disease; Z99.2 - Dependence on renal dialysis Status: Chronic Plan: Continue hemodialysis Tuesdays, and Saturdays. Reviewed IR report showing outflow issue at axilla with successful PTBA. 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 Mildly successful dilatation performed. Medication should be adjusted for his end-stage renal disease when indicated. Avoid gadolinium. (2) Altered mental status Code(s): R41.82 - Altered mental status, unspecified Status: Acute Plan: Etiology remains unclear---TIA? (3) Hypertension Code(s): I10 - Essential (primary) hypertension Status: Chronic Qualifiers: Hypertension type: essential hypertension Qualified Code(s): I10 - Essential (primary) hypertension (4) Diabetes mellitus Code(s): E11.9 - Type 2 diabetes mellitus without complications Status: Acute <Elizabeth Brandt - Last Filed: 03/18/18 13:33> - Assessment (1) ESRD (end stage renal disease) on dialysis Code(s): N18.6 - End stage renal disease; Z99.2 - Dependence on renal dialysis Status: Chronic (2) Altered mental status Code(s): R41.82 - Altered mental status, unspecified Status: Acute (3) Hypertension Code(s): I10 - Essential (primary) hypertension Status: Chronic Qualifiers: Hypertension type: essential hypertension Qualified Code(s): I10 - Essential (primary) hypertension (4) Diabetes mellitus Code(s): E11.9 - Type 2 diabetes mellitus without complications Status: Acute - Attending Attestation The exam, history, and the medical decision-making described in the above note were completed with the assistance of the AMADOU. I reviewed and agree with the findings presented. <Marivel Arciniega - Last Filed: 03/21/18 12:18>
[2018-03-19 05:54] LABS: Hematocrit 37.8 % (39.0-51.0); Hemoglobin 11.6 gm/dL (13.0-17.0); Mean Corpuscular Hemoglobin 24.9 pg (27.0-34.0); Mean Corpuscular Volume 80.8 fL (80.0-100.0); Mean Platelet Volume 8.9 fL (7.0-11.0); Platelet Count 230 th/mm3 (150-450); Red Blood Count 4.67 mil/mm3 (4.50-5.90); Red Cell Distribution Width 18.3 % (11.6-17.2); White Blood Count 8.1 th/mm3 (4.0-11.0)
[2018-03-19 05:57] LABS: Mean Corpuscular HGB Conc 30.8 % (32.0-36.0)
[2018-03-19 06:24] LABS: Albumin 3.5 g/dL (3.4-5.0); Calcium 9.7 mg/dL (8.5-10.1); Carbon Dioxide 29.3 meq/L (21.0-32.0); Phosphorus 7.7 mg/dL (2.5-4.9); Potassium 4.6 meq/L (3.5-5.1)
[2018-03-19 06:33] LABS: Eosinophils 5 % (0-4); Lymphocytes 12 % (9-44); Monocytes 11 % (0-8); Ovalocytes 1+; Platelet Estimate Normal (Normal); Platelet Morphology Normal (Normal); Tear Drop Cells 1+
[2018-03-19] MEDS: Heparin - SQ 10,000 UNITS/ML Vial SQ SCH ×2 (09:23→21:53)
[2018-03-19] MEDS: Gabapentin 100 MG Capsule PO SCH ×2 (09:24→21:53)
[2018-03-19] MEDS: dilTIAZem 60 MG Tablet PO SCH ×4 (09:24→21:53)
--- NOTE | 2018-03-19 11:04 | P.PNIM ---
Subjective Interval history: Heart rate better overnight. Patient continues to be confused Physical Exam Vital signs: Vital Signs 03/18/18 12:00 03/18/18 16:00 03/18/18 19:55 Temperature 97.8 F 97.3 F L Pulse Rate 85 79 77 Respiratory Rate 16 16 Blood Pressure 108/51 L 114/56 L Pulse Oximetry 93 L 99 03/18/18 20:00 03/18/18 23:47 03/19/18 00:00 Temperature 99.5 F 98.7 F Pulse Rate 78 77 84 Respiratory Rate 17 16 Blood Pressure 107/52 L 115/59 L Pulse Oximetry 94 L 92 L 03/19/18 01:36 03/19/18 03:56 03/19/18 04:00 Temperature 98.7 F Pulse Rate 77 76 Respiratory Rate 16 Blood Pressure 128/57 L Pulse Oximetry 94 L 99 03/19/18 08:00 Temperature 98.5 F Pulse Rate 75 Respiratory Rate 20 Blood Pressure 108/53 L Pulse Oximetry 932 H Intake & Output 03/18/18 03/19/18 03/19/18 18:59 06:59 18:59 Intake Total 0 / 0 1053 / 1053 Output Total 0 / 0 1 / 1 Balance 0 / 0 1053 / 1053 -1 / -1 Weight 70.1 kg Intake: Oral 0 / 0 50 / 50 Tube Feeding 1003 / 1003 Output: Urine 0 / 0 Stool 1 / 1 Other: # Voids 0 Date of Last Bowel Movement 03/19/18 # Bowel Movements 0 1 Narrative: GENERAL: Well-developed well-nourished. In no acute distress. SKIN: Warm and dry. No lesions noted. CARDIOVASCULAR: Irregular rate and rhythm. RESPIRATORY: No accessory muscle use. Clear to auscultation. Breath sounds equal bilaterally. GASTROINTESTINAL: Abdomen soft, non-tender, nondistended. Bowel sounds x4. MUSCULOSKELETAL: No clubbing or cyanosis. No edema. Neuro: Awake and alert with aphasia follow simple commands. Right upper extremity with 4.5 out of 5 motor strength Results - Labs CBC & Chem 7: 03/19/18 05:05 03/19/18 05:05 Laboratory Results - last 24 hr 03/19/18 03/19/18 05:05 05:05 WBC 8.1 RBC 4.67 Hgb 11.6 L Hct 37.8 L MCV 80.8 MCH 24.9 L MCHC 30.8 L RDW 18.3 H Plt Count 230 D MPV 8.9 Prelim Diff (Auto) Slide review pending WBC Differential Manual diff final Seg Neuts % (Manual) 71 H Band Neuts % (Manual) 1 Lymphocytes % (Manual) 12 Monocytes % (Manual) 11 H Eosinophils % (Manual) 5 H Abs Neuts (Manual) 5.8 Differential Comment . Platelet Estimate Normal Platelet Morphology Normal Tear Drop Cells 1+ H Ovalocytes 1+ H Sodium 143 Potassium 4.6 Chloride 100 Carbon Dioxide 29.3 Anion Gap 14 BUN 79 H Creatinine 11.73 H* D Estimated GFR 5 L Random Glucose 113 H Calcium 9.7 Phosphorus 7.7 H Albumin 3.5 - Procedures EG placement with GI 03/17AV fistula stenosis status post dilatation with interventional radiology Dr. Logan Sam Assessment and Plan - Assessment (1) TIA (transient ischemic attack) Code(s): G45.9 - Transient cerebral ischemic attack, unspecified Status: Acute (2) Malnutrition Code(s): E46 - Unspecified protein-calorie malnutrition Status: Chronic (3) Altered mental status Code(s): R41.82 - Altered mental status, unspecified Status: Acute (4) ESRD (end stage renal disease) on dialysis Code(s): N18.6 - End stage renal disease; Z99.2 - Dependence on renal dialysis Status: Chronic (5) Hypertension Code(s): I10 - Essential (primary) hypertension Status: Chronic - Plan 83 yo dialysis patient who residents in [facility] sent by [facility] for progressive AMS, normally patient A&O and able to preform normal ADLs on his own. 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 No signs of infectious etiology, however anuric so can't check UA, was treated with ceftriaxone with no improvement, antibiotic discontinued. TSH stable. RPR negative. B12 high -Psychiatry consulted, no acute psychiatric intervention indicated at this time , recommend neurology consultation. -Neurology consulted, recommended aspirin for possible TIA and checking echo and EEG - echocardiogram: The left ventricular systolic function is hyperdynamic with an estimated ejection fraction in the range of 65- 70%. Normal left ventricular size. Moderate concentric left ventricular hypertrophy. No regional wall motion abnormalities are present. The tricuspid valve is not well visualized. There is trace tricuspid valve regurgitation. Normal estimated pulmonary pressures. - EEG: Overall, [id number] slowing of background consistent with encephalopathic process. No epileptiform features. -Carotid ultrasounds with no significant stenosis -Continue to hold tramadol and baclofen -Speech following, PT/OT -Right upper extremity weakness, left facial droop, dysphasia, - continue aspirin and statin. Status post PEG placement by GI 03/16 Started Nepro for tube feeds and advance to goal of 50 mill per hour as tolerated. ESRD on HD TUTHSat -Nephrology following, appreciate assistance Elevated total CK now improved Rhabdomyolysis secondary to agitation? No fevers -Status post gentle hydration, slight decrease in total CK. Atrial fibrillation with RVR -Recurrence of decrease heart rate yesterday now resolved, appreciate cardiology evaluation. 2D echo with normal ventricular function, recommended Cardizem due to tachycardia this morning. Continue Cardizem 60 mg p.o. 4 times daily and monitor blood pressure Previous history of hemorrhagic infarct and risks with anticoagulation. Continue with aspirin. 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 Bilat SCDs, subcu heparin Discharge Planning: Possibly discharge to retirement facility if patient's heart rate is better controlled over the next 24 hours. (5) Hypertension Qualifiers: Hypertension type: essential hypertension Qualified Code(s): I10 - Essential (primary) hypertension
[2018-03-19] MEDS: Sod Chloride 0.9% Inj 1,000 ML IV.CONT SCH (13:06)
[2018-03-20] MEDS: Heparin - SQ 10,000 UNITS/ML Vial SQ SCH ×2 (08:31→21:23)
[2018-03-20] MEDS: Gabapentin 100 MG Capsule PO SCH ×2 (08:31→21:24)
[2018-03-20] MEDS: dilTIAZem 60 MG Tablet PO SCH ×4 (08:32→21:24)
--- NOTE | 2018-03-20 09:25 | P.PNIM ---
Subjective Interval history: No acute changes overnight per nursing staff. Patient tolerating tube feeds. Physical Exam Vital signs: Vital Signs 03/19/18 12:00 03/19/18 16:00 03/19/18 20:00 Temperature 97.8 F 98.1 F Pulse Rate 76 84 123 H Respiratory Rate 20 20 Blood Pressure 124/57 L 143/62 H Pulse Oximetry 95 96 03/19/18 21:46 03/20/18 00:47 03/20/18 04:32 Temperature 98.0 F 97.4 F L 97.9 F Pulse Rate 53 L 78 87 Respiratory Rate 18 18 17 Blood Pressure 114/57 L 110/56 L 136/62 Pulse Oximetry 94 L 94 L 95 Intake & Output 03/19/18 03/20/18 03/20/18 18:59 06:59 18:59 Intake Total 522 / 522 Output Total 1800 / 1800 Balance 521 / 521 -1800 / -1800 Weight 70 kg Intake: IV 522 / 522 NS Inj 1,000 ML @ 40 mls/hr IV. 522 / 522 CONT .Q24H [facility] Rx#:[id number] Output: Stool Hemodialysis Amount 1800 / 1800 Other: # Voids 0 Date of Last Bowel Movement 03/19/18 # Bowel Movements 0 Narrative: GENERAL: Well-developed well-nourished. In no acute distress. SKIN: Warm and dry. No lesions noted. CARDIOVASCULAR: Irregular rate and rhythm. RESPIRATORY: No accessory muscle use. Clear to auscultation. Breath sounds equal bilaterally. GASTROINTESTINAL: Abdomen soft, non-tender, nondistended. Normoactive bowel sounds MUSCULOSKELETAL: No clubbing or cyanosis. No edema. Neuro: Awake and alert with aphasia follow simple commands. Right upper extremity with 4.5 out of 5 motor strength, left upper extremity 5 out of 5 Results - Labs CBC & Chem 7: 03/19/18 05:05 03/19/18 05:05 - Procedures EG placement with GI 03/17AV fistula stenosis status post dilatation with interventional radiology Dr. Logan Sam Assessment and Plan - Assessment (1) TIA (transient ischemic attack) Code(s): G45.9 - Transient cerebral ischemic attack, unspecified Status: Acute (2) Malnutrition Code(s): E46 - Unspecified protein-calorie malnutrition Status: Chronic (3) Altered mental status Code(s): R41.82 - Altered mental status, unspecified Status: Acute (4) ESRD (end stage renal disease) on dialysis Code(s): N18.6 - End stage renal disease; Z99.2 - Dependence on renal dialysis Status: Chronic (5) Hypertension Code(s): I10 - Essential (primary) hypertension Status: Chronic - Plan 83 yo dialysis patient who residents in [facility] sent by [facility] for progressive AMS, normally patient A&O and able to preform normal ADLs on his own. 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 No signs of infectious etiology, however anuric so can't check UA, was treated with ceftriaxone with no improvement, antibiotic discontinued. TSH stable. RPR negative. B12 high -Psychiatry consulted, no acute psychiatric intervention indicated at this time , recommend neurology consultation. -Neurology consulted, recommended aspirin for possible TIA and checking echo and EEG - echocardiogram: The left ventricular systolic function is hyperdynamic with an estimated ejection fraction in the range of 65- 70%. Normal left ventricular size. Moderate concentric left ventricular hypertrophy. No regional wall motion abnormalities are present. The tricuspid valve is not well visualized. There is trace tricuspid valve regurgitation. Normal estimated pulmonary pressures. - EEG: Overall, [id number] slowing of background consistent with encephalopathic process. No epileptiform features. -Carotid ultrasounds with no significant stenosis -Continue to hold tramadol and baclofen -Speech following, PT/OT -Right upper extremity weakness, left facial droop, dysphasia, - continue aspirin and statin. Status post PEG placement by GI 03/16 Started Nepro for tube feeds and advance to goal of 50 mill per hour as tolerated. ESRD on HD TUTHSat -Nephrology following, appreciate assistance Elevated total CK now improved Rhabdomyolysis secondary to agitation? No fevers -Status post gentle hydration, slight decrease in total CK. Atrial fibrillation with RVR - 2D echo with normal ventricular function, cardiology recommended Cardizem due to tachycardia this morning. Continue Cardizem 60 mg p.o. 4 times daily and monitor blood pressure, transient tachycardia yesterday and will add metoprolol 12.5 mg via PEG twice daily Previous history of hemorrhagic infarct and risks with anticoagulation. Continue with aspirin. 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 Case management still in process of working with family for placement. (5) Hypertension Qualifiers: Hypertension type: essential hypertension Qualified Code(s): I10 - Essential (primary) hypertension
[2018-03-20] MEDS: Metoprolol Tartrate 25 MG Tablet G-TUBE SCH ×2 (09:39→21:24)
[2018-03-20] MEDS: Sod Chloride 0.9% Inj 1,000 ML IV.CONT SCH (17:50)
[2018-03-21] MEDS: Metoprolol Tartrate 25 MG Tablet G-TUBE SCH ×2 (09:11→20:55)
[2018-03-21] MEDS: Heparin - SQ 10,000 UNITS/ML Vial SQ SCH ×2 (09:11→20:55)
[2018-03-21] MEDS: dilTIAZem 60 MG Tablet PO SCH ×4 (09:11→20:55)
[2018-03-21] MEDS: Gabapentin 100 MG Capsule PO SCH ×2 (09:11→20:55)
[2018-03-21] MEDS: Sod Chloride 0.9% Inj 1,000 ML IV.CONT SCH (12:19)
--- NOTE | 2018-03-21 12:21 | P.PNNP ---
Subjective Interval history: Patient appears to be more alert following verbal commands and responding to simple questions. Physical Exam Vital signs: Vital Signs 03/20/18 16:00 03/20/18 20:00 03/21/18 00:05 Temperature 97.6 F 98.2 F Pulse Rate 61 92 H 76 Respiratory Rate 17 18 Blood Pressure 98/58 L 123/57 L Pulse Oximetry 95 92 L 03/21/18 00:45 03/21/18 04:26 03/21/18 08:00 Temperature 98.4 F 98.0 F 98.3 F Pulse Rate 76 69 64 Respiratory Rate 20 18 18 Blood Pressure 124/58 L 153/67 H 127/60 Pulse Oximetry 94 L 95 97 Intake & Output 03/20/18 03/21/18 03/21/18 18:59 06:59 18:59 Intake Total 0 / 0 480 / 480 Output Total 0 / 0 Balance 0 / 0 480 / 480 Weight 70 kg Intake: Oral 0 / 0 Tube Feeding 480 / 480 Output: Urine 0 / 0 Other: # Voids 0 # Bowel Movements 0 0 Narrative: GENERAL: Well-developed well-nourished. In no acute distress. SKIN: Warm and dry. CARDIOVASCULAR: Irregular rate and rhythm. RESPIRATORY: No accessory muscle use. Clear to auscultation. Breath sounds equal bilaterally. GASTROINTESTINAL: Abdomen soft, non-tender, nondistended. Normoactive bowel sounds MUSCULOSKELETAL: No clubbing or cyanosis. No edema. No audible bruit over the AV dialysis shunt right forearm. Assessment and Plan - Assessment (1) ESRD (end stage renal disease) on dialysis Code(s): N18.6 - End stage renal disease; Z99.2 - Dependence on renal dialysis Status: Chronic Plan: Continue hemodialysis Tuesdays, and Saturdays. Reviewed IR report showing outflow issue at axilla with previous successful PTBA. 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 Mildly successful dilatation performed. However today no bruit audible over the dialysis shunt. Will ask radiology to reevaluate. Discussed the situation with the radiologist who is not optimistic given the multiple stents and stenoses noted on recent study that we will be able to salvage the axis. May need placement of a hemodialysis PermCath possibly in the femoral vein. Patient not clear for discharge until adequate dialysis access established. Medication should be adjusted for his end-stage renal disease when indicated. Avoid gadolinium. (2) Altered mental status Code(s): R41.82 - Altered mental status, unspecified Status: Acute Plan: Improved clinically and patient close to baseline.. (3) Hypertension Code(s): I10 - Essential (primary) hypertension Status: Chronic Qualifiers: Hypertension type: essential hypertension Qualified Code(s): I10 - Essential (primary) hypertension (4) Diabetes mellitus Code(s): E11.9 - Type 2 diabetes mellitus without complications Status: Acute
--- NOTE | 2018-03-21 15:19 | P.PNCA ---
Subjective Interval history: Denies CP, abdominal pain, dyspnea, palpitations, dizziness. Physical Exam Vital signs: Vital Signs 03/20/18 16:00 03/20/18 20:00 03/21/18 00:05 Temperature 97.6 F 98.2 F Pulse Rate 61 92 H 76 Respiratory Rate 17 18 Blood Pressure 98/58 L 123/57 L Pulse Oximetry 95 92 L 03/21/18 00:45 03/21/18 04:26 03/21/18 08:00 Temperature 98.4 F 98.0 F 98.3 F Pulse Rate 76 69 64 Respiratory Rate 20 18 18 Blood Pressure 124/58 L 153/67 H 127/60 Pulse Oximetry 94 L 95 97 03/21/18 12:00 Temperature 98.0 F Pulse Rate 74 Respiratory Rate 16 Blood Pressure 117/58 L Pulse Oximetry 100 Intake & Output 03/20/18 03/21/18 03/21/18 18:59 06:59 18:59 Intake Total 0 / 0 480 / 480 Output Total 0 / 0 Balance 0 / 0 480 / 480 Weight 70 kg Intake: Oral 0 / 0 Tube Feeding 480 / 480 Output: Urine 0 / 0 Other: # Voids 0 # Bowel Movements 0 0 - Constitutional no acute distress - Routine Neck Exam Absent: JVD - Routine Respiratory Exam Present: CTA bilaterally - Routine Cardiovascular Exam Present: RRR, S1, S2, murmur. Absent: gallop Comments: I/ LUNA base. Normal S2. - Routine Abdominal Exam Present: soft, normoactive bowel sounds. Absent: tenderness, organomegaly - Routine Extremities Exam Absent: cyanosis, clubbing, edema Assessment and Plan - Assessment (1) Bradycardia Code(s): R00.1 - Bradycardia, unspecified Status: Acute Plan: No further bradycardia. Remains in atrial fib/flutter with infrequent mildly elevated HR's. Patient asymptomatic. His thromboembolic risk is high. REC continue oral diltiazem and metoprolol, continue aspirin, can add digoxin and/or increase metoprolol as needed, will f/u PRN. (2) Paroxysmal atrial flutter Code(s): I48.92 - Unspecified atrial flutter Status: Acute Plan: Remains in atrial fib/flutter at present, infrequent mildly increased HR's. Thromboembolic risk is high; to continue with daily aspirin in light of history of hemorrhagic CVA. (3) Hypertension Code(s): I10 - Essential (primary) hypertension Status: Chronic Plan: Stable. Normotensive. - Plan Code Status: full code Discussed Condition With: patient (3) Hypertension Qualifiers: Hypertension type: essential hypertension Qualified Code(s): I10 - Essential (primary) hypertension
--- NOTE | 2018-03-21 18:45 | P.PNIM ---
Subjective Interval history: No acute changes per nursing. Patient reports that he is comfortable. Physical Exam Vital signs: Vital Signs 03/20/18 20:00 03/21/18 00:05 03/21/18 00:45 Temperature 98.2 F 98.4 F Pulse Rate 92 H 76 76 Respiratory Rate 18 20 Blood Pressure 123/57 L 124/58 L Pulse Oximetry 92 L 94 L 03/21/18 04:26 03/21/18 08:00 03/21/18 12:00 Temperature 98.0 F 98.3 F 98.0 F Pulse Rate 69 64 74 Respiratory Rate 18 18 16 Blood Pressure 153/67 H 127/60 117/58 L Pulse Oximetry 95 97 100 03/21/18 16:00 Temperature 98.1 F Pulse Rate 72 Respiratory Rate Blood Pressure 120/66 Pulse Oximetry 96 Intake & Output 03/20/18 03/21/18 03/21/18 18:59 06:59 18:59 Intake Total 0 / 0 480 / 480 Output Total 0 / 0 Balance 0 / 0 480 / 480 Weight 70 kg Intake: Oral 0 / 0 Tube Feeding 480 / 480 Output: Urine 0 / 0 Other: # Voids 0 # Bowel Movements 0 0 0 Narrative: GENERAL: patient sitting up in bed. Appears controlled. SKIN: Warm and dry. HEAD: Normocephalic. EYES: No scleral icterus. No injection or drainage. NECK: Supple, trachea midline. No JVD . CARDIOVASCULAR: irregularly irregular rhythm without murmurs, gallops, or rubs. RESPIRATORY: Breath sounds equal bilaterally. No accessory muscle use. GASTROINTESTINAL: Abdomen soft, non-tender, nondistended. MUSCULOSKELETAL: No cyanosis, or edema. BACK: Nontender without obvious deformity. No CVA tenderness. Results - Labs CBC & Chem 7: 03/19/18 05:05 03/19/18 05:05 - Procedures EG placement with GI 03/17AV fistula stenosis status post dilatation with interventional radiology Dr. Logan Sam Assessment and Plan - Assessment (1) TIA (transient ischemic attack) Code(s): G45.9 - Transient cerebral ischemic attack, unspecified Status: Acute (2) Malnutrition Code(s): E46 - Unspecified protein-calorie malnutrition Status: Chronic (3) Altered mental status Code(s): R41.82 - Altered mental status, unspecified Status: Acute (4) ESRD (end stage renal disease) on dialysis Code(s): N18.6 - End stage renal disease; Z99.2 - Dependence on renal dialysis Status: Chronic (5) Hypertension Code(s): I10 - Essential (primary) hypertension Status: Chronic - Plan 83 yo dialysis patient who [facility] by [facility] for progressive AMS, normally patient A&O and able to preform normal ADLs on his own. 03/21. Patient seen and examined. No further bradycardia. Cardiology recommends continuing oral diltiazem and metoprolol //Acute encephalopathylikely due to TIA Intracranial imaging with old CVA, nothing new. No signs of infectious etiology, however anuric so can't check UA, was treated with ceftriaxone with no improvement, antibiotic discontinued. TSH stable. RPR negative. B12 high -Psychiatry consulted, no acute psychiatric intervention indicated at this time , recommend neurology consultation. -Neurology consulted, recommended aspirin for possible TIA and checking echo and EEG - echocardiogram: The left ventricular systolic function is hyperdynamic with an estimated ejection fraction in the range of 65- 70%. Normal left ventricular size. Moderate concentric left ventricular hypertrophy. No regional wall motion abnormalities are present. The tricuspid valve is not well visualized. There is trace tricuspid valve regurgitation. Normal estimated pulmonary pressures. - EEG: Overall, [id number] slowing of background consistent with encephalopathic process. No epileptiform features. -Carotid ultrasounds with no significant stenosis -Continue to hold tramadol and baclofen -Speech following, PT/OT -Right upper extremity weakness, left facial droop, dysphasia, - continue aspirin and statin. //Status post PEG placement by GI 03/16 Started Nepro for tube feeds and advance to goal of 50 mill per hour as tolerated. //ESRD on HD TUTHSat -Nephrology following, appreciate assistance //Elevated total CK now improved Rhabdomyolysis secondary to agitation? No fevers -Status post gentle hydration, slight decrease in total CK. //Atrial fibrillation with RVR - 2D echo with normal ventricular function, cardiology recommended Cardizem due to tachycardia this morning. Continue Cardizem 60 mg p.o. 4 times daily and monitor blood pressure, transient tachycardia yesterday and will add metoprolol 12.5 mg via PEG twice daily Previous history of hemorrhagic infarct and risks with anticoagulation. Continue with aspirin. = 03/21. 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
[2018-03-22] MEDS: Heparin - SQ 10,000 UNITS/ML Vial SQ SCH ×2 (08:41→21:22)
[2018-03-22] MEDS: Gabapentin 100 MG Capsule PO SCH ×2 (08:42→21:22)
[2018-03-22] MEDS: dilTIAZem 60 MG Tablet PO SCH ×4 (08:43→21:22)
[2018-03-22] MEDS: Metoprolol Tartrate 25 MG Tablet G-TUBE SCH ×2 (08:43→21:22)
[2018-03-22] MEDS ORDERED: fentaNYL Citrate Inj 250 MCG/5 ML Ampul ONE (09:07)
[2018-03-22] MEDS ORDERED: Sodium Chlor 0.9% Inj 250 ML ONE (10:13)
[2018-03-22] MEDS ORDERED: *Heparin 10,000 UNITS/10 ML Vial Periprocedural ONLY ONE (10:20)
[2018-03-22] MEDS ORDERED: Lidocaine 1%/Epinephrine 1:100,000 Inj 20 ML Vial ONE (10:20)
--- NOTE | 2018-03-22 10:21 | P.PNNP ---
Subjective Interval history: Pt more alert today and is conversive. Going to IR this AM to see if access can be salvaged versus placement of PermCath. <Elizabeth Brandt R - Last Filed: 03/22/18 10:18> Physical Exam Vital signs: Vital Signs 03/21/18 12:00 03/21/18 16:00 03/21/18 20:00 Temperature 98.0 F 98.1 F 98.4 F Pulse Rate 74 72 73 Respiratory Rate 16 18 Blood Pressure 117/58 L 120/66 141/61 H Pulse Oximetry 100 96 96 03/22/18 00:00 03/22/18 06:00 Temperature 98.3 F 97.9 F Pulse Rate 72 90 Respiratory Rate 18 20 Blood Pressure 136/61 141/66 H Pulse Oximetry 96 10 L Intake & Output 03/21/18 03/22/18 03/22/18 18:59 06:59 18:59 Intake Total 350 / 350 Balance 350 / 350 Intake: Tube Feeding 250 / 250 Tube Irrigant 100 / 100 Other: # Bowel Movements 0 - Constitutional no acute distress - Routine HEENT Exam Head: Present: normocephalic - Routine Respiratory Exam Present: CTA bilaterally - Routine Cardiovascular Exam Present: RRR, S1, S2 - Routine Abdominal Exam Present: soft - Routine Extremities Exam Present: edema - Routine Skin Exam Present: intact - Routine Neurological Exam Present: alert <Elizabeth Brandt R - Last Filed: 03/22/18 10:18> Vital signs: Vital Signs 03/22/18 20:00 03/23/18 00:00 03/23/18 04:00 Temperature 98.6 F 97.8 F 98.5 F Pulse Rate 70 62 80 Respiratory Rate 18 18 18 Blood Pressure 142/63 H 130/65 153/62 H Pulse Oximetry 97 98 98 03/23/18 04:15 03/23/18 04:22 03/23/18 05:22 Temperature 98.5 F 98.3 F Pulse Rate 80 77 Respiratory Rate 18 18 Blood Pressure 133/62 142/64 H Pulse Oximetry 98 98 97 03/23/18 06:22 03/23/18 07:22 03/23/18 08:00 Temperature Pulse Rate 78 96 H Respiratory Rate Blood Pressure 147/70 H 131/69 Pulse Oximetry 03/23/18 09:00 03/23/18 15:27 Temperature 98.1 F Pulse Rate 96 H 70 Respiratory Rate 18 Blood Pressure 134/63 Pulse Oximetry 95 Intake & Output 03/22/18 03/23/18 03/23/18 18:59 06:59 18:59 Intake Total 1850 / 1850 720 / 720 1000 / 1000 Output Total 1200 / 1200 1999 / 1999 Balance 650 / 650 720 / 720 -1000 / -1000 Intake: IV 1350 / 1350 1000 / 1000 NS Inj 250 ML @ 0 mls/hr .ROUTE 250 / 250 .STK-MED ONE Rx#:[id number] NS Inj 1,000 ML @ 40 mls/hr IV. 1000 / 1000 1000 / 1000 CONT .Q24H [facility] Rx#:[id number] Ancef 1 GM Premix Inj 2 gm In 100 / 100 100 ml @ 0 mls/hr IV.SIG .STK- MED ONE Rx#:[id number] Tube Feeding 500 / 500 600 / 600 Tube Irrigant 120 / 120 Output: Hemodialysis Amount 1200 / 1200 1999 / 1999 Other: Date of Last Bowel Movement 03/22/18 03/23/18 # Bowel Movements 0 3 0 <Marivel Arciniega - Last Filed: 03/23/18 16:38> Assessment and Plan - Assessment (1) ESRD (end stage renal disease) on dialysis Code(s): N18.6 - End stage renal disease; Z99.2 - Dependence on renal dialysis Status: Chronic Plan: Continue hemodialysis Tuesdays, and Saturdays. Reviewed IR report showing outflow issue at axilla with previous successful PTBA. 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 Mildly successful dilatation performed. No audible bruit nor palpable thrill over the dialysis shunt. IR evaluating L AVF today to see if access can be salvaged. If not, he will require PermCath placement (likely femoral as it appears he has a central stenosis). As mentioned previously, will have to have a working dialysis access before he will be cleared for discharge from renal standpoint Medication should be adjusted for his end-stage renal disease when indicated. Avoid gadolinium. (2) Altered mental status Code(s): R41.82 - Altered mental status, unspecified Status: Acute Plan: Improved clinically and patient close to baseline. (3) Hypertension Code(s): I10 - Essential (primary) hypertension Status: Chronic Qualifiers: Hypertension type: essential hypertension Qualified Code(s): I10 - Essential (primary) hypertension (4) Diabetes mellitus Code(s): E11.9 - Type 2 diabetes mellitus without complications Status: Acute <Elizabeth Brandt - Last Filed: 03/22/18 10:18> - Assessment (1) ESRD (end stage renal disease) on dialysis Code(s): N18.6 - End stage renal disease; Z99.2 - Dependence on renal dialysis Status: Chronic (2) Altered mental status Code(s): R41.82 - Altered mental status, unspecified Status: Acute (3) Hypertension Code(s): I10 - Essential (primary) hypertension Status: Chronic Qualifiers: Hypertension type: essential hypertension Qualified Code(s): I10 - Essential (primary) hypertension (4) Diabetes mellitus Code(s): E11.9 - Type 2 diabetes mellitus without complications Status: Acute - Attending Attestation The exam, history, and the medical decision-making described in the above note were completed with the assistance of the AMADOU. I reviewed and agree with the findings presented. <Marivel Arciniega - Last Filed: 03/23/18 16:38>
[2018-03-22] MEDS ORDERED: ceFAZolin 1 GM Premix Inj 2 GM/100 ML FROZ.PIGGY IV.SIG ONE (10:23)
--- NOTE | 2018-03-22 11:12 | P.RAD ---
Post Procedure Progress Note - Pre Procedure Diagnosis (1) AV fistula occlusion (2) ESRD (end stage renal disease) on dialysis - Post Procedure Diagnosis (1) ESRD (end stage renal disease) on dialysis (2) AV fistula occlusion - Procedure Information Procedure Date: 03/22/18 Supervising Radiologist: Lacho Solorzano MD Anesthesia: Local, Analgesia, Conscious Sedation - Plan of Activity Patient to Unit: [facility] Patient Condition: Good See PACS Report for procedural detail/treatment. [facility] Radiology Procedures right Subclavian Hemodialysis Catheter Tunneled Indonesian: 15 PICC Line Length (cm): 27 - Additional Detail Findings: RUE fistula occluded per U/S. Multiple central stents with mild intervening stenosis. Right sublcavian PermCath placed.
[2018-03-22] MEDS: Sod Chloride 0.9% Inj 1,000 ML IV.CONT SCH (12:07)
--- NOTE | 2018-03-22 12:07 | IR ---
EXAM DATE: 03/22/2018 11:42 AM EDT AGE/SEX: 83 years / Male INDICATIONS: Patient with history of end stage renal disease in need of tunneled dialysis catheter p lacement. CLINICAL DATA: This is the patient's subsequent encounter. Patient reports that signs and symptoms h ave been present for 3 weeks and indicates a pain score of 0/10. MEDICAL/SURGICAL HISTORY: Dementia. Hypertension. Diabetes. CHF, CVA, PVD, RUE AVF, HLD, Pro state Cancer, Cholecystectomy. Bladder surgery, AV Fistula 2013, AV Fistula Ligation 07/2017 due to excessive bleeding. COMPARISON: No prior exams available for comparison. FLUORO TIME (min): 2.93 IMAGE SERIES: 4 ACCESS SITE: Right subclavian vein SEDATION TIME (min): 30 CONTRAST (cc): 5 Visipaque (iodixanol) MEDICATION(S): 1.5 mg midazolam (Versed) IV 75 mcg fentanyl (Sublimaze) IV Prophylactic antibiotics were administered with appropriate pre-procedure timing. Intra-procedural an tibiotics were given as prescribed above. DEVICE(S): 15 Serbian double lumen 27 cm Chin II Plus Catheter . . PROCEDURE : 1. Ultrasound guided venipuncture. 2. Fluoroscopic guidance. 3. Central line placement. The risks, benefits and alternatives to the procedure were explained and verbal and written consent w as obtained. The site was prepped in sterile fashion. Full sterile technique was used, including ca p, mask, sterile gloves and gown and a large sterile sheet. Hand hygiene and 2% chlorhexidine prep w as utilized per protocol for cutaneous antisepsis with appropriate dry time for site. Sterile gel an d sterile probe cover were utilized for ultrasound guidance. Initially, the right upper extremity fistula was interrogated sonographically. This showed occlusion of the fistula. However, the right subclavian vein appeared to be patent. The skin and subcutaneous tissues were infiltrated with local anesthetic solution. A suitable site a teresa the vein was selected with ultrasound and fluoroscopic guidance. A small incision was made. Th e vein was accessed under direct ultrasound visualization using the micropuncture technique. The belén ropuncture set was exchanged for a 0.035 wire. The tract was dilated. The catheter was advanced int o position under direct fluoroscopic visualization, and was advanced with the tip at the junction of the superior vena cava and rt atrium. The catheter was fixed in place with suture and a sterile dres sing was applied. The patient tolerated the procedure well and there were no complications. CONCLUSION: 1. Uncomplicated line placement as above. 2. Sonographic interrogation of the right upper extremity shows the fistula to be occluded. Multiple stents were identified along the course of the fistula and the short interval reocclusion after [employer] last week probably warrants either catheter dialysis or revision of the fistula itself. Electronically signed by: Lacho Solorzano MD 03/22/2018 12:06 PM EDT
--- NOTE | 2018-03-22 13:46 | P.PNIM ---
Subjective Interval history: Patient says he is feeling right. Denies any pain. Physical Exam Vital signs: Vital Signs 03/21/18 16:00 03/21/18 20:00 03/22/18 00:00 Temperature 98.1 F 98.4 F 98.3 F Pulse Rate 72 73 72 Respiratory Rate 18 18 Blood Pressure 120/66 141/61 H 136/61 Pulse Oximetry 96 96 96 03/22/18 06:00 03/22/18 08:00 03/22/18 09:00 Temperature 97.9 F 98.5 F Pulse Rate 90 74 70 Respiratory Rate 20 14 Blood Pressure 141/66 H 160/80 H Pulse Oximetry 10 L 97 03/22/18 11:15 03/22/18 11:30 03/22/18 12:00 Temperature 97.8 F 97.6 F Pulse Rate 68 69 67 Respiratory Rate 16 20 17 Blood Pressure 106/62 116/57 L 125/57 L Pulse Oximetry 93 L 95 93 L 03/22/18 12:24 03/22/18 12:54 Temperature 97.7 F 97.5 F L Pulse Rate 69 66 Respiratory Rate 18 17 Blood Pressure 125/60 128/66 Pulse Oximetry Intake & Output 03/21/18 03/22/18 03/22/18 18:59 06:59 18:59 Intake Total 350 / 350 1350 / 1350 Balance 350 / 350 1350 / 1350 Intake: IV 1350 / 1350 NS Inj 250 ML @ 0 mls/hr .ROUTE 250 / 250 .STK-MED ONE Rx#:[id number] NS Inj 1,000 ML @ 40 mls/hr IV. 1000 / 1000 CONT .Q24H [facility] Rx#:[id number] Ancef 1 GM Premix Inj 2 gm In 100 / 100 100 ml @ 0 mls/hr IV.SIG .STK- MED ONE Rx#:[id number] Tube Feeding 250 / 250 Tube Irrigant 100 / 100 Other: # Bowel Movements 0 Narrative: GENERAL: patient sitting up in bed. Appears comfortable. SKIN: Warm and dry. HEAD: Normocephalic. EYES: No scleral icterus. No injection or drainage. NECK: Supple, trachea midline. No JVD . CARDIOVASCULAR: irregularly irregular rhythm without murmurs, gallops, or rubs. RESPIRATORY: Breath sounds equal bilaterally. No accessory muscle use. GASTROINTESTINAL: Abdomen soft, non-tender, nondistended. MUSCULOSKELETAL: No cyanosis, or edema. BACK: Nontender without obvious deformity. No CVA tenderness. Results - Labs CBC & Chem 7: 03/19/18 05:05 03/19/18 05:05 - Imaging Impressions Catheter Placement 03/22/18 12:09 CONCLUSION: 1. Uncomplicated line placement as above. 2. Sonographic interrogation of the right upper extremity shows the fistula to be occluded. 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 - Procedures EG placement with GI 03/17AV fistula stenosis status post dilatation with interventional radiology Dr. Logan Sam Assessment and Plan - Assessment (1) TIA (transient ischemic attack) Code(s): G45.9 - Transient cerebral ischemic attack, unspecified Status: Acute (2) Malnutrition Code(s): E46 - Unspecified protein-calorie malnutrition Status: Chronic (3) Altered mental status Code(s): R41.82 - Altered mental status, unspecified Status: Acute (4) ESRD (end stage renal disease) on dialysis Code(s): N18.6 - End stage renal disease; Z99.2 - Dependence on renal dialysis Status: Chronic (5) Hypertension Code(s): I10 - Essential (primary) hypertension Status: Chronic - Plan 83 yo dialysis patient who residents in senior care sent by [facility] for progressive AMS, normally patient A&O and able to preform normal ADLs on his own. 03/22. Patient seen and examined. Nephrology working on obtaining appropriate dialysis access. Follow-up nephrology recommendations. 03/21. Patient seen and examined. No further bradycardia. Cardiology recommends continuing oral diltiazem and metoprolol //Acute encephalopathylikely due to TIA Intracranial imaging with old CVA, nothing new. No signs of infectious etiology, however anuric so can't check UA, was treated with ceftriaxone with no improvement, antibiotic discontinued. TSH stable. RPR negative. B12 high -Psychiatry consulted, no acute psychiatric intervention indicated at this time , recommend neurology consultation. -Neurology consulted, recommended aspirin for possible TIA and checking echo and EEG - echocardiogram: The left ventricular systolic function is hyperdynamic with an estimated ejection fraction in the range of 65- 70%. Normal left ventricular size. Moderate concentric left ventricular hypertrophy. No regional wall motion abnormalities are present. The tricuspid valve is not well visualized. There is trace tricuspid valve regurgitation. Normal estimated pulmonary pressures. - EEG: Overall, [id number] slowing of background consistent with encephalopathic process. No epileptiform features. -Carotid ultrasounds with no significant stenosis -Continue to hold tramadol and baclofen -Speech following, PT/OT -Right upper extremity weakness, left facial droop, dysphasia, - continue aspirin and statin. //Status post PEG placement by GI 03/16 Started Nepro for tube feeds and advance to goal of 50 mill per hour as tolerated. //ESRD on HD TUTHSat -Nephrology following, appreciate assistance //Elevated total CK now improved Rhabdomyolysis secondary to agitation? No fevers -Status post gentle hydration, slight decrease in total CK. //Atrial fibrillation with RVR - 2D echo with normal ventricular function, cardiology recommended Cardizem due to tachycardia this morning. Continue Cardizem 60 mg p.o. 4 times daily and monitor blood pressure, transient tachycardia yesterday and will add metoprolol 12.5 mg via PEG twice daily Previous history of hemorrhagic infarct and risks with anticoagulation. Continue with aspirin. = 03/21. 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 (5) Hypertension Qualifiers: Hypertension type: essential hypertension Qualified Code(s): I10 - Essential (primary) hypertension
[2018-03-23 05:53] LABS: Albumin 3.2 g/dL (3.4-5.0); Calcium 9.3 mg/dL (8.5-10.1); Carbon Dioxide 25.3 meq/L (21.0-32.0); Phosphorus 3.9 mg/dL (2.5-4.9); Potassium 4.5 meq/L (3.5-5.1)
[2018-03-23 06:37] LABS: Baso % (Auto) 0.6 % (0.0-2.0); Eos # (Auto) 0.4 th/mm3 (0.0-0.4); Eos % (Auto) 5.1 % (0.0-4.0); Hemoglobin 11.7 gm/dL (13.0-17.0); Lymph # (Auto) 0.6 th/mm3 (1.0-4.8); Lymph % (Auto) 7.3 % (9.0-44.0); Mean Corpuscular HGB Conc 31.5 % (32.0-36.0); Mean Corpuscular Hemoglobin 24.8 pg (27.0-34.0); Mean Corpuscular Volume 78.8 fL (80.0-100.0); Mean Platelet Volume 8.9 fL (7.0-11.0); Mono # (Auto) 0.7 th/mm3 (0.0-0.9); Mono % (Auto) 9.4 % (0.0-8.0); Neut % (Auto) 77.6 % (16.0-70.0); Platelet Count 326 th/mm3 (150-450); Red Cell Distribution Width 18.1 % (11.6-17.2); White Blood Count 7.8 th/mm3 (4.0-11.0)
--- NOTE | 2018-03-23 10:52 | P.DIET ---
Nutritional Evaluation Type of nutrition evaluation: follow-up Nutrition consult regarding: Tube Feeding Nutrition screening: [facility] [place] (Consult for Tube Feeding/ PEG placement planned for today) Subjective Barriers to Nutrition: Swallowing problem Objective - Diagnosis AMS - Objective [place] body weight: 70 kg % IBW: 97 (IBW = 154#) Body Weight Used for Calculations: Actual (68 kg) Energy Needs - Lower Range (kCal/kg): 28 Energy Needs - Upper Range (kCal/kg): 32 Lower Limit kCal/kg (kCals): 1,904 Upper Limit kCal/kg (kCals): 2,176 Lower Limit Protein Factor (Grams per Kg): 1.2 Upper Limit Protein Factor (Grams per Kg): 1.5 Lower Protein Needs (Protein): 82 Upper Protein Needs (Protein): 102 Dietitian Reviewed in Medical Record: Curent medications, Intake & Output, Labs , Medical history, Tube feeding Diet Order: TF'ing ONLY: Nepro @ 50ml/hr Speech Therapy Recommendations: Yes (03/21 Rec for Puree Solids, [place] Thickened Liquid) Objective Comments: PMH includes: AVF, CHF, Dementia, ESRD on HD T-Th-Sat, CVA, HTN, PVD, DM-2 PEG placement 03/16/18 Labs Include: BUN 95, Creatinine 11.42, estGFR 5, Glucose 118 Meds Include: Lipitor, Baclofen, Catapres, Cardizem, Neurontin, Lopressor, Zofran LBM 03/22 Feeding - Current Tube Feeding Tube Feeding Product: Nepro Tube Feeding Rate: 50 Tube Feeding Route: gastrostomy Current kCals Provided by Tube Feedin,160 Current Protein Provided by Tube Feeding (gPRO): 97 Current Free H2O Provided (m/l): 872 Assessment Assessment: Pt continues at Nutritional Risk r/t need for HD and TF'ing. TF'ing, as ordered , provides for pt's assessed needs. Free water flushes per MD. Should bolus feeds be preferred, then Rec Nepro 300 mls at breakfast, lunch, dinner and HS for a total of 1200 mls of Nepro per day. Monitor ST Recs and diet advancement. Labs reviewed. Wt changes noted. Dietitian following. Recommendations: 1. TF'ing w/Nepro @ goal rate 50ml/hr 2. Free water flushes per MD 3. Should bolus feeds be preferred, then Rec Nepro 300 mls at breakfast, lunch , dinner and HS 4. Monitor ST Recs and diet advancement 5. Dietitian following Dietitian to Monitor: Lab values, Renal labs, Glucose level, Intake & Output, Tube feeding tolerance, Weight change, Diet advancement, Swallow recommendations , Medical course
[2018-03-23] MEDS: dilTIAZem 60 MG Tablet PO SCH ×4 (11:35→21:45)
[2018-03-23] MEDS: Heparin - SQ 10,000 UNITS/ML Vial SQ SCH ×2 (11:35→21:45)
[2018-03-23] MEDS: Metoprolol Tartrate 25 MG Tablet G-TUBE SCH ×2 (12:44→21:45)
[2018-03-23] MEDS: Gabapentin 100 MG Capsule PO SCH ×2 (12:45→21:45)
[2018-03-23] MEDS: Sod Chloride 0.9% Inj 1,000 ML IV.CONT SCH (12:46)
--- NOTE | 2018-03-23 16:38 | P.PNNP ---
Subjective Interval history: Patient pleasantly confused. Unfortunately dialysis shunt could not be salvaged by radiology. Subclavian PermCath now in place. Physical Exam Vital signs: Vital Signs 03/22/18 20:00 03/23/18 00:00 03/23/18 04:00 Temperature 98.6 F 97.8 F 98.5 F Pulse Rate 70 62 80 Respiratory Rate 18 18 18 Blood Pressure 142/63 H 130/65 153/62 H Pulse Oximetry 97 98 98 03/23/18 04:15 03/23/18 04:22 03/23/18 05:22 Temperature 98.5 F 98.3 F Pulse Rate 80 77 Respiratory Rate 18 Blood Pressure 133/62 142/64 H Pulse Oximetry 98 98 97 03/23/18 06:22 03/23/18 07:22 03/23/18 08:00 Temperature Pulse Rate 78 96 H Respiratory Rate Blood Pressure 147/70 H 131/69 Pulse Oximetry 03/23/18 09:00 03/23/18 15:27 Temperature 98.1 F Pulse Rate 96 H 70 Respiratory Rate 18 Blood Pressure 134/63 Pulse Oximetry 95 Intake & Output 03/22/18 03/23/18 03/23/18 18:59 06:59 18:59 Intake Total 1850 / 1850 720 / 720 1000 / 1000 Output Total 1200 / 1200 1999 / 1999 Balance 650 / 650 720 / 720 -1000 / -1000 Intake: IV 1350 / 1350 1000 / 1000 NS Inj 250 ML @ 0 mls/hr .ROUTE 250 / 250 .STK-MED ONE Rx#:[id number] NS Inj 1,000 ML @ 40 mls/hr IV. 1000 / 1000 1000 / 1000 CONT [facility]H [facility] Rx#:[id number] Ancef 1 GM Premix Inj 2 gm In 100 / 100 100 ml @ 0 mls/hr IV.SIG .STK- MED ONE Rx#:[id number] Tube Feeding 500 / 500 600 / 600 Tube Irrigant 120 / 120 Output: Hemodialysis Amount 1200 / 1200 1999 / 1999 Other: Date of Last Bowel Movement 03/22/18 03/23/18 # Bowel Movements 0 3 0 Narrative: GENERAL: Lying in bed. Appears comfortable. SKIN: Warm and dry. HEAD: Normocephalic. EYES: No scleral icterus. No injection or drainage. NECK: Supple, trachea midline. No JVD . CARDIOVASCULAR: irregularly irregular rhythm without murmurs, gallops, or rubs. RESPIRATORY: Breath sounds equal bilaterally. No accessory muscle use. GASTROINTESTINAL: Abdomen soft, non-tender, nondistended. MUSCULOSKELETAL: No cyanosis, or edema. BACK: Nontender without obvious deformity. No CVA tenderness. Assessment and Plan - Assessment (1) ESRD (end stage renal disease) on dialysis Code(s): N18.6 - End stage renal disease; Z99.2 - Dependence on renal dialysis Status: Chronic Plan: Continue hemodialysis Tuesdays, and Saturdays. Reviewed IR report showing outflow issue at axilla with previous successful PTBA. 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 Mildly successful dilatation performed but unfortunately dialysis access subsequently thrombosed and could not be salvaged by radiology. Hemodialysis PermCath now in place. Will obtain opinion from vascular surgery regarding possible future options for A-V shunt. Medication should be adjusted for his end-stage renal disease when indicated. Avoid gadolinium. (2) Altered mental status Code(s): R41.82 - Altered mental status, unspecified Status: Acute Plan: Improved clinically and patient close to baseline. (3) Hypertension Code(s): I10 - Essential (primary) hypertension Status: Chronic Qualifiers: Hypertension type: essential hypertension Qualified Code(s): I10 - Essential (primary) hypertension (4) Diabetes mellitus Code(s): E11.9 - Type 2 diabetes mellitus without complications Status: Acute
--- NOTE | 2018-03-23 19:31 | P.PNIM ---
Subjective Interval history: patient seen this afternoon. Confused but pleasant. He denies any pain. Physical Exam Vital signs: Vital Signs 03/22/18 20:00 03/23/18 00:00 03/23/18 04:00 Temperature 98.6 F 97.8 F 98.5 F Pulse Rate 70 62 80 Respiratory Rate 18 18 18 Blood Pressure 142/63 H 130/65 153/62 H Pulse Oximetry 97 98 98 03/23/18 04:15 03/23/18 04:22 03/23/18 05:22 Temperature 98.5 F 98.3 F Pulse Rate 80 77 Respiratory Rate 18 Blood Pressure 133/62 142/64 H Pulse Oximetry 98 98 97 03/23/18 06:22 03/23/18 07:22 03/23/18 08:00 Temperature Pulse Rate 78 96 H Respiratory Rate Blood Pressure 147/70 H 131/69 Pulse Oximetry 03/23/18 09:00 03/23/18 15:00 03/23/18 15:27 Temperature 98.1 F Pulse Rate 96 H 113 H 70 Respiratory Rate 18 Blood Pressure 134/63 Pulse Oximetry 95 Intake & Output 03/23/18 03/23/18 03/24/18 06:59 18:59 06:59 Intake Total 720 / 720 1000 / 1000 Output Total 1999 Balance 720 / 720 -1000 / -1000 Intake: IV 1000 / 1000 NS Inj 1,000 ML @ 40 mls/hr IV. 1000 / 1000 CONT .Q24H [facility] Rx#:[id number] Tube Feeding 600 / 600 Tube Irrigant 120 / 120 Output: Hemodialysis Amount 1999 Other: Date of Last Bowel Movement 03/22/18 03/23/18 # Bowel Movements 3 0 Narrative: GENERAL: Lying in bed. Appears comfortable.pleasantly confused as before. SKIN: Warm and dry. HEAD: Normocephalic. EYES: No scleral icterus. No injection or drainage. NECK: Supple, trachea midline. No JVD . CARDIOVASCULAR: irregularly irregular rhythm without murmurs, gallops, or rubs. RESPIRATORY: Breath sounds equal bilaterally. No accessory muscle use. GASTROINTESTINAL: Abdomen soft, non-tender, nondistended. MUSCULOSKELETAL: No cyanosis, or edema. BACK: Nontender without obvious deformity. No CVA tenderness. Results - Labs CBC & Chem 7: 03/23/18 05:25 03/23/18 05:25 Laboratory Results - last 24 hr 03/23/18 03/23/18 05:25 05:25 WBC 7.8 RBC 4.70 Hgb 11.7 L Hct 37.0 L MCV 78.8 L MCH 24.8 L MCHC 31.5 L RDW 18.1 H Plt Count 326 D MPV 8.9 Neut % (Auto) 77.6 H Lymph % (Auto) 7.3 L [place] % (Auto) 9.4 H Eos % (Auto) 5.1 H Baso % (Auto) 0.6 Neut # (Auto) 6.0 Lymph # (Auto) 0.6 L [place] # (Auto) 0.7 Eos # (Auto) 0.4 Baso # (Auto) 0.0 WBC Differential . Differential Comment Auto diff final Hematology Comments Sodium 138 Potassium 4.5 Chloride 99 Carbon Dioxide 25.3 Anion Gap 14 BUN 95 H Creatinine 11.42 H* Estimated GFR 5 L Random Glucose 118 H Calcium 9.3 Phosphorus 3.9 Albumin 3.2 L - Procedures EG placement with GI 03/17AV fistula stenosis status post dilatation with interventional radiology Dr. Logan Sam Assessment and Plan - Assessment (1) TIA (transient ischemic attack) Code(s): G45.9 - Transient cerebral ischemic attack, unspecified Status: Acute (2) Malnutrition Code(s): E46 - Unspecified protein-calorie malnutrition Status: Chronic (3) Altered mental status Code(s): R41.82 - Altered mental status, unspecified Status: Acute (4) ESRD (end stage renal disease) on dialysis Code(s): N18.6 - End stage renal disease; Z99.2 - Dependence on renal dialysis Status: Chronic (5) Hypertension Code(s): I10 - Essential (primary) hypertension Status: Chronic - Plan 83 yo dialysis patient who residents in fdc sent by [facility] for progressive AMS, normally patient A&O and able to preform normal ADLs on his own. 03/23. Patient seen and examined. Patient now has PermCath subclavian. Continue to follow nephrology recommendations. We'll need nephrology clearance for discharge. 03/22. Patient seen and examined. Nephrology working on obtaining appropriate dialysis access. Follow-up nephrology recommendations. 03/21. Patient seen and examined. No further bradycardia. Cardiology recommends continuing oral diltiazem and metoprolol //Acute encephalopathylikely due to TIA Intracranial imaging with old CVA, nothing new. No signs of infectious etiology, however anuric so can't check UA, was treated with ceftriaxone with no improvement, antibiotic discontinued. TSH stable. RPR negative. B12 high -Psychiatry consulted, no acute psychiatric intervention indicated at this time , recommend neurology consultation. -Neurology consulted, recommended aspirin for possible TIA and checking echo and EEG - echocardiogram: The left ventricular systolic function is hyperdynamic with an estimated ejection fraction in the range of 65- 70%. Normal left ventricular size. Moderate concentric left ventricular hypertrophy. No regional wall motion abnormalities are present. The tricuspid valve is not well visualized. There is trace tricuspid valve regurgitation. Normal estimated pulmonary pressures. - EEG: Overall, [id number] slowing of background consistent with encephalopathic process. No epileptiform features. -Carotid ultrasounds with no significant stenosis -Continue to hold tramadol and baclofen -Speech following, PT/OT -Right upper extremity weakness, left facial droop, dysphasia, - continue aspirin and statin. //Status post PEG placement by GI 03/16 Started Nepro for tube feeds and advance to goal of 50 mill per hour as tolerated. //ESRD on HD TUTHSat -Nephrology following, appreciate assistance //Elevated total CK now improved Rhabdomyolysis secondary to agitation? No fevers -Status post gentle hydration, slight decrease in total CK. //Atrial fibrillation with RVR - 2D echo with normal ventricular function, cardiology recommended Cardizem due to tachycardia this morning. Continue Cardizem 60 mg p.o. 4 times daily and monitor blood pressure, transient tachycardia yesterday and will add metoprolol 12.5 mg via PEG twice daily Previous history of hemorrhagic infarct and risks with anticoagulation. Continue with aspirin. = 03/21. 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 pending nephrology clearance. (5) Hypertension Qualifiers: Hypertension type: essential hypertension Qualified Code(s): I10 - Essential (primary) hypertension
[2018-03-24 08:46] VITALS: BP 146/63; PULSE 77; RESP 18; TEMP 98.2; O2SAT 93
--- NOTE | 2018-03-24 09:18 | P.CONVS ---
History of Present Illness Service: Cardiovascular Consult date: 03/24/18 Reason for Consult: Arteriovenous Fistula Evaluation Primary Care Provider: Jacinto Chakraborty MD Chief Complaint: AMS History of Present Illness: Mr. Root is aashish pleasant 83/M with a PMH DM, HTN, Hyperlipidemia, PVD and ESRD on HD (T/T/S). Pt. underwent a RIGHT upper extremity axillary artery to axillary vein arteriovenous loop (11/03/17). Pt has a Hx of a previous RUE access that was ligated after hemorrhaging several months ago. Pt denied hand pain Neg thrill near R UE AVF Review of Systems Constitutional: Denies chills, Denies fatigue, Denies fever(s) Cardiovascular: Denies chest pain, Denies shortness of breath Respiratory: Denies shortness of breath PMFSH - History History Provided By: Patient, Medical Record (Hepatic encephalopathy, dialysis patient) - Medical History Medical History: Medical History (Last Updated 03/24/18 @ 09:04 by Gill De Guzman) AVF (arteriovenous fistula) (Acute) CHF (congestive heart failure) Dementia ESRD (end stage renal disease) on dialysis History of CVA (cerebrovascular accident) Hypertension Peripheral vascular disease Type 2 diabetes mellitus with other diabetic kidney complication - Social History I have reviewed the patient's Social History: Yes - Tobacco History Second Hand Smoke Exposure: No Smoking Status: Never smoker - Alcohol History How Often Do You Have a Drink Containing Alcohol: Never - Substance Use History Substance History: No History of Abuse, Unable to Obtain - Travel History Recent Travel in the [place] Within the Last 8 Weeks: No Recent Travel Out of the Country Within the Last 8 Weeks: No - Immunization History Tetanus Immunization: Unable to Assess Hx Influenza Vaccine This Season: Unable to Assess Medications and Allergies Allergies Allergy/AdvReac Type Severity Reaction Status Date / Time No Known Allergies Allergy Unknown Uncoded 11/10/17 16:10 Home Medications Medication Instructions Recorded Confirmed Type B complex-vitamin C-folic acid 1 tab PO DAILY 03/07/18 03/07/18 History [Padmini-Micah] albuterol sulfate [Ventolin HFA] 1 puff INHALATION QID PRN 03/07/18 03/07/18 History allopurinol 100 mg PO DAILY 03/07/18 03/07/18 History aspirin [Aspir-81] 81 mg PO DAILY 03/07/18 03/07/18 History atorvastatin 10 mg PO DAILY 03/07/18 03/07/18 History baclofen 5 mg PO BID 03/07/18 03/07/18 History ergocalciferol (vitamin D2) 50,000 unit PO QWEEK 03/07/18 03/07/18 History [Vitamin D2] ferrous sulfate 325 mg PO DAILY 03/07/18 03/07/18 History fluticasone 2 spray INTRANASAL DAILY 03/07/18 03/07/18 History gabapentin 100 mg PO TID 03/07/18 03/07/18 History Active Medications: Active Medications Acetaminophen (Tylenol) 650 mg PO UNSCH PRN PRN Reason: SEE LABEL COMMENTS Aspirin (Ecotrin) 162 mg PO DAILY [facility] Last Admin: 03/23/18 11:35 Dose: Not Given Atorvastatin Calcium (Lipitor) 10 mg PO DAILY [facility] Last Admin: 03/23/18 12:44 Dose: 10 mg Baclofen (Lioresal) 5 mg PO BID [facility] Last Admin: 03/13/18 08:30 Dose: 5 mg Clonidine HCl (Catapres) 0.1 mg PO UNSCH PRN PRN Reason: SEE LABEL COMMENTS Diltiazem HCl (Cardizem) 60 mg PO QID [facility] Last Admin: 03/23/18 21:45 Dose: 60 mg Diphenhydramine HCl (Benadryl) 25 mg PO UNSCH PRN PRN Reason: SEE LABEL COMMENTS Gabapentin (Neurontin) 100 mg PO BID [facility] Last Admin: 03/23/18 21:45 Dose: 100 mg Gelatin (Gelfoam 12 Mm/7 Mm Topical) 1 foam TOPICAL PRN PRN PRN Reason: help stop bleeding from site Last Admin: 03/17/18 10:12 Dose: 1 foam Heparin Sodium (Porcine) (Heparin Inj) 8,000 units OTHER WITH DIALYSIS PRN PRN Reason: for machine prime Last Admin: 03/12/18 11:11 Dose: 1,000 units Heparin Sodium (Porcine) (Heparin Inj) 5,000 units SQ Q12HR [facility] Last Admin: 03/23/18 21:45 Dose: 5,000 units Albumin Human (Flexbumin 25% Inj) 100 mls @ 60 mls/hr IV.SIG WITH DIALYSIS PRN PRN Reason: hypotension / volume replace Last Admin: 03/17/18 10:12 Dose: 250 mls/hr Sodium Chloride (Ns Inj) 1,000 mls @ 0 mls/hr OTHER .Q0M PRN PRN Reason: for prime and rinse back Sodium Chloride (Ns Inj) 1,000 mls @ 200 mls/hr OTHER .Q5H PRN PRN Reason: for dialyzer flush PRN Sodium Chloride (Ns Inj) 1,000 mls @ 0 mls/hr IV.CONT .Q0M PRN PRN Reason: hypotension / volume replace Sodium Chloride (Ns Inj) 1,000 mls @ 40 mls/hr IV.CONT .Q24H [facility] Last Admin: 03/23/18 12:46 Dose: 40 mls/hr Metoprolol Tartrate (Lopressor) 25 mg G-TUBE BID [facility] Last Admin: 03/23/18 21:45 Dose: 25 mg Miscellaneous (Pill Splitter) 1 each OTHER DAILY [facility] Last Admin: 03/23/18 11:36 Dose: Not Given Nitroglycerin (Nitrostat Sl) 0.4 mg SL Q5M PRN PRN Reason: CHEST PAIN Ondansetron HCl (Zofran Inj) 4 mg IV.PUSH UNSCH PRN PRN Reason: NAUSEA OR VOMITING Sodium Chloride (Ns Flush) 2 ml IV.FLUSH PRN PRN PRN Reason: FLUSH AFTER USING IV ACCESS Physical Exam Vital Signs / I&O: Vital Signs 03/23/18 09:00 03/23/18 15:00 03/23/18 15:27 Temperature 98.1 F Pulse Rate 96 H 113 H 70 Respiratory Rate 18 Blood Pressure 134/63 Pulse Oximetry 95 03/23/18 20:00 03/24/18 00:00 03/24/18 00:19 Temperature 99.1 F 98.9 F Pulse Rate 77 69 69 Respiratory Rate 18 18 Blood Pressure 130/62 152/66 H Pulse Oximetry 96 94 L 03/24/18 04:00 Temperature 99.2 F Pulse Rate 102 H Respiratory Rate 20 Blood Pressure 131/60 Pulse Oximetry 95 Intake & Output 03/23/18 03/24/18 03/24/18 18:59 06:59 18:59 Intake Total 1000 / 1000 899 / 899 Output Total 1999 Balance -1000 / -1000 899 / 899 Intake: IV 1000 / 1000 NS Inj 1,000 ML @ 40 mls/hr IV. 1000 / 1000 CONT .Q24H [facility] Rx#:[id number] Tube Feeding 899 / 899 Output: Hemodialysis Amount 1999 Other: Date of Last Bowel Movement 03/23/18 # Bowel Movements 0 Neuro: Pleasantly confused Pt alert and oriented to person and place Speech garbled at times Neck: No JVD distention Heart: + S1,S2 Irregular Lungs: Resp even and CTA Abdomen: S/NT Vascular: Arteriovenous fistula to R UE w/o audible/palpable thrill R Radial pulses 2+ palpable L Radial pulse EDUCATIONAL PROGRAMMING DIRECTOR L Ulnar pulse palpable Impressions Catheter Placement 03/22/18 12:09 CONCLUSION: 1. Uncomplicated line placement as above. 2. Sonographic interrogation of the right upper extremity shows the fistula to be occluded. Multiple stents were identified along the course of the fistula and the short interval reocclusion after DIRECTOR OF RELIGIOUS ACTIVITIES last week probably warrants either catheter dialysis or revision of the fistula itself. Assessment and Plan - Plan Mr. Root is well known to us and underwent a R UE Brach-Ax on 11/03/17 Pt seen and evaluated for a L UE AVF creation as his R UE has thrombosed and is unsalvageable Pt w/o hand pain - thrill palpable to R UE Plan Reviewed recent vein mapping results Planning an out pt L UE Arteriovenous Graft w/ Dr. Bustos on 04/04/18 Recommend LEFT arm precautions- NO B/P readings or lab draws Gill De Guzman NP [facility] [phone] Discharge Planning: Pt clear for D/C from a vascular standpoint Arranged out pt L UE AVG on 04/04/18 w/ Dr. Bustos - Attending Attestation Pt seen and examined. Agree with above. Prior R UE AVG, thrombosed and apparently not able to be salvaged by IR. Will plan for LEFT arm AVG (no autogenous options). Will be scheduled as outpatient. Agustín Bustos MD FACS [employer] broadcast operations director [facility] at [facility] [phone]
--- NOTE | 2018-03-24 09:24 | P.PNIM ---
Subjective Interval history: Patient seen this morning around 8:30 AM. Says he is feeling comfortable. Denies any pain. Physical Exam Vital signs: Vital Signs 03/23/18 15:00 03/23/18 15:27 03/23/18 20:00 Temperature 98.1 F 99.1 F Pulse Rate 113 H 70 77 Respiratory Rate 18 18 Blood Pressure 134/63 130/62 Pulse Oximetry 95 96 03/24/18 00:00 03/24/18 00:19 03/24/18 04:00 Temperature 98.9 F 99.2 F Pulse Rate 69 69 102 H Respiratory Rate 18 20 Blood Pressure 152/66 H 131/60 Pulse Oximetry 94 L 95 03/24/18 08:00 Temperature 98.2 F Pulse Rate 77 Respiratory Rate 18 Blood Pressure 146/63 H Pulse Oximetry 93 L Intake & Output 03/23/18 03/24/18 03/24/18 18:59 06:59 18:59 Intake Total 1000 / 1000 899 / 899 Output Total 1999 Balance -1000 / -1000 899 / 899 Intake: IV 1000 / 1000 NS Inj 1,000 ML @ 40 mls/hr IV. 1000 / 1000 CONT .Q24H [facility] Rx#:[id number] Tube Feeding 9 Output: Hemodialysis Amount 1999 Other: Date of Last Bowel Movement 03/23/18 # Bowel Movements 0 Narrative: GENERAL: Lying in bed. Appears comfortable.pleasantly confused as before. No change on exam. SKIN: Warm and dry. HEAD: Normocephalic. EYES: No scleral icterus. No injection or drainage. NECK: Supple, trachea midline. No JVD . CARDIOVASCULAR: irregularly irregular rhythm without murmurs, gallops, or rubs. RESPIRATORY: Breath sounds equal bilaterally. No accessory muscle use. GASTROINTESTINAL: Abdomen soft, non-tender, nondistended. MUSCULOSKELETAL: No cyanosis, or edema. BACK: Nontender without obvious deformity. No CVA tenderness. Results - Labs CBC & Chem 7: 03/23/18 05:25 03/23/18 05:25 - Procedures EG placement with GI 03/17AV fistula stenosis status post dilatation with interventional radiology Dr. Logan Sam Assessment and Plan - Assessment (1) TIA (transient ischemic attack) Code(s): G45.9 - Transient cerebral ischemic attack, unspecified Status: Acute (2) Malnutrition Code(s): E46 - Unspecified protein-calorie malnutrition Status: Chronic (3) Altered mental status Code(s): R41.82 - Altered mental status, unspecified Status: Acute (4) ESRD (end stage renal disease) on dialysis Code(s): N18.6 - End stage renal disease; Z99.2 - Dependence on renal dialysis Status: Chronic (5) Hypertension Code(s): I10 - Essential (primary) hypertension Status: Chronic - Plan 83 yo dialysis patient who residents in half-way sent by [facility] for progressive AMS, normally patient A&O and able to preform normal ADLs on his own. 03/23. Patient seen and examined. Patient now has PermCath subclavian. Continue to follow nephrology recommendations. We'll need nephrology clearance for discharge. 03/22. Patient seen and examined. Nephrology working on obtaining appropriate dialysis access. Follow-up nephrology recommendations. 03/21. Patient seen and examined. No further bradycardia. Cardiology recommends continuing oral diltiazem and metoprolol //Acute encephalopathylikely due to TIA Intracranial imaging with old CVA, nothing new. No signs of infectious etiology, however anuric so can't check UA, was treated with ceftriaxone with no improvement, antibiotic discontinued. TSH stable. RPR negative. B12 high -Psychiatry consulted, no acute psychiatric intervention indicated at this time , recommend neurology consultation. -Neurology consulted, recommended aspirin for possible TIA and checking echo and EEG - echocardiogram: The left ventricular systolic function is hyperdynamic with an estimated ejection fraction in the range of 65- 70%. Normal left ventricular size. Moderate concentric left ventricular hypertrophy. No regional wall motion abnormalities are present. The tricuspid valve is not well visualized. There is trace tricuspid valve regurgitation. Normal estimated pulmonary pressures. - EEG: Overall, [id number] slowing of background consistent with encephalopathic process. No epileptiform features. -Carotid ultrasounds with no significant stenosis -Continue to hold tramadol and baclofen -Speech following, PT/OT -Right upper extremity weakness, left facial droop, dysphasia, - continue aspirin and statin. //Status post PEG placement by GI 03/16 Continue Nepro for tube feeds. //ESRD on HD TUTHSat -Nephrology following, appreciate assistance //Elevated total CK now improved Rhabdomyolysis secondary to agitation? No fevers -Status post gentle hydration, slight decrease in total CK. //Atrial fibrillation with RVR - 2D echo with normal ventricular function, cardiology recommended Cardizem due to tachycardia this morning. Continue Cardizem 60 mg p.o. 4 times daily and monitor blood pressure, transient tachycardia yesterday and will add metoprolol 12.5 mg via PEG twice daily Previous history of hemorrhagic infarct and risks with anticoagulation. Continue with aspirin. 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 Discussed with vascular surgery. Patient will follow up with vascular surgery as outpatient to address right arm AV fistula. Dialysis can be continued via PermCath. Awaiting nephrology clearance. //Bilat SCDs, subcu heparin Discharge Planning: [facility] pending nephrology clearance. (5) Hypertension Qualifiers: Hypertension type: essential hypertension Qualified Code(s): I10 - Essential (primary) hypertension
[2018-03-24] MEDS: Heparin - SQ 10,000 UNITS/ML Vial SQ SCH (10:37)
[2018-03-24] MEDS: dilTIAZem 60 MG Tablet PO SCH ×2 (10:37→13:30)
[2018-03-24] MEDS: Metoprolol Tartrate 25 MG Tablet G-TUBE SCH (10:38)
[2018-03-24] MEDS: Gabapentin 100 MG Capsule PO SCH (10:38)
--- NOTE | 2018-03-24 11:38 | P.DS ---
Date of admission: 03/17/18 14:45 Primary care physician: Jacinto Chakraborty MD Anticipated date of discharge: 03/18/18 Brief History from admission: This is a 83 yo male halfway patient. History obtained form Dr. Garica ER physician, who obtained hx from [facility], who obtained hx from halfway nurse. Over the past few days patient apparently acting more confused. Has been refusing medication, including his lactulose. Today apparently mental status was worse so concern was for so was sent to ER. Ammonia in the ER was 22. He is a dialysis patient, apparently has not missed any dialysis, Cr 11.42. DS: Diagnosis - Discharge Diagnosis (1) TIA (transient ischemic attack) Status: Acute (2) Malnutrition Status: Chronic (3) Altered mental status Status: Acute (4) ESRD (end stage renal disease) on dialysis Status: Chronic (5) Hypertension Status: Chronic DS: Medications - Discharge Medications Prescriptions: furosemide 40 mg PO DAILY #30 mg metoprolol tartrate 25 mg G-TUBE BID 30 Days #60 tab DS: Summary Hospital Course: 83 yo dialysis patient who residents in halfway sent by [facility] for progressive AMS, normally patient A&O and able to preform normal ADLs on his own. Patient suspected to have TIA on admission, however MRI negative for acute process, does show old stroke as below. Neurology was consulted, recommends aspirin. PEG tube was placed by GI on 03/16 due to failing speech therapy evaluation, however patient subsequently passed speech therapy evaluation. Patient will need to keep PEG tube in for at least 6 weeks after placement. Patient with elevation in BUN, creatinine on admission for which patient was given dialysis. This will be continued via PermCath. Patient had stenosis of AV fistula for which she will need follow-up with vascular surgery as outpatient. Patient also found to have atrial fibrillation with RVR on admission for which she was started on diltiazem and metoprolol by cardiology. We'll need to follow with cardiology as outpatient. For problem-based summary from most recent progress note, please see below. 03/23. Patient seen and examined. Patient now has PermCath subclavian. Continue to follow nephrology recommendations. We'll need nephrology clearance for discharge. 03/22. Patient seen and examined. Nephrology working on obtaining appropriate dialysis access. Follow-up nephrology recommendations. 03/21. Patient seen and examined. No further bradycardia. Cardiology recommends continuing oral diltiazem and metoprolol //Acute encephalopathylikely due to TIA Intracranial imaging with old CVA, nothing new. No signs of infectious etiology, however anuric so can't check UA, was treated with ceftriaxone with no improvement, antibiotic discontinued. TSH stable. RPR negative. B12 high -Psychiatry consulted, no acute psychiatric intervention indicated at this time , recommend neurology consultation. -Neurology consulted, recommended aspirin for possible TIA and checking echo and EEG - echocardiogram: The left ventricular systolic function is hyperdynamic with an estimated ejection fraction in the range of 65- 70%. Normal left ventricular size. Moderate concentric left ventricular hypertrophy. No regional wall motion abnormalities are present. The tricuspid valve is not well visualized. There is trace tricuspid valve regurgitation. Normal estimated pulmonary pressures. - EEG: Overall, [id number] slowing of background consistent with encephalopathic process. No epileptiform features. -Carotid ultrasounds with no significant stenosis -Continue to hold tramadol and baclofen -Speech following, PT/OT -Right upper extremity weakness, left facial droop, dysphasia, - continue aspirin and statin. //Status post PEG placement by GI 03/16 Continue Nepro for tube feeds. //ESRD on HD TUTHSat -Nephrology following, appreciate assistance //Elevated total CK now improved Rhabdomyolysis secondary to agitation? No fevers -Status post gentle hydration, slight decrease in total CK. //Atrial fibrillation with RVR - 2D echo with normal ventricular function, cardiology recommended Cardizem due to tachycardia this morning. Continue Cardizem 60 mg p.o. 4 times daily and monitor blood pressure, transient tachycardia yesterday and will add metoprolol 12.5 mg via PEG twice daily Previous history of hemorrhagic infarct and risks with anticoagulation. Continue with aspirin. 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 Discussed with vascular surgery. Patient will follow up with vascular surgery as outpatient to address right arm AV fistula. Dialysis can be continued via PermCath. Awaiting nephrology clearance. //Bilat SCDs, subcu heparin - Time Spent with Patient Total time spent providing and/or coordinating discharge services: Greater than 30 minutes Exam Vital signs: Vital Signs 03/23/18 15:00 03/23/18 15:27 03/23/18 20:00 Temperature 98.1 F 99.1 F Pulse Rate 113 H 70 77 Respiratory Rate 18 18 Blood Pressure 134/63 130/62 Pulse Oximetry 95 96 03/24/18 00:00 03/24/18 00:19 03/24/18 04:00 Temperature 98.9 F 99.2 F Pulse Rate 69 69 102 H Respiratory Rate 18 20 Blood Pressure 152/66 H 131/60 Pulse Oximetry 94 L 95 03/24/18 08:00 Temperature 98.2 F Pulse Rate 77 Respiratory Rate 18 Blood Pressure 146/63 H Pulse Oximetry 93 L Intake & Output 03/23/18 03/24/18 03/24/18 18:59 06:59 18:59 Intake Total 1000 / 1000 899 / 899 Output Total 1999 Balance -1000 / -1000 899 / 899 Intake: IV 1000 / 1000 NS Inj 1,000 ML @ 40 mls/hr IV. 1000 / 1000 CONT .Q24H [facility] Rx#:[id number] Tube Feeding 899 / 899 Output: Hemodialysis Amount 1999 Other: Date of Last Bowel Movement 03/25/17 # Bowel Movements 0 Results Procedures completed during hospitalization: EG placement with GI 03/17AV fistula stenosis status post dilatation with interventional radiology Dr. Logan Sam permacat placement - Impressions ITS Impressions Chest X-Ray 03/09/18 00:00 CONCLUSION: 1. No acute abnormality or significant interval change. Head CT 03/11/18 12:01 CONCLUSION: 1. No acute intracranial abnormality or significant interval change. . Carotid Doppler Study 03/14/18 00:00 CONCLUSION: 1. Right Internal Carotid Artery: No significant stenosis; minimal atherosclerotic plaque is visualized. 2. Left Internal Carotid Artery: No significant stenosis; minimal atherosclerotic plaque is visualized. 3. Antegrade flow both vertebral arteries. Head MRI 03/15/18 00:00 CONCLUSION: 1. No acute infarct or other acute intracranial abnormality. 2. 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 3. 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 4. Mild chronic white matter changes. Shunt Study 03/17/18 17:42 CONCLUSION: 1. Uncomplicated evaluation of the interposition graft as above. 2. Successful angioplasty of a venous stenosis in the axillary vein. 3. Angioplasty of a previously placed stent within the central venous system. There was only partial resolution of the stenosis. There was brisk flow through the interposition graft at the conclusion of the study. Catheter Placement 03/22/18 12:09 CONCLUSION: 1. Uncomplicated line placement as above. 2. Sonographic interrogation of the right upper extremity shows the fistula to be occluded. Multiple stents were identified along the course of the fistula and the short interval reocclusion after BROADCAST ENGINEER last week probably warrants either catheter dialysis or revision of the fistula itself. Discharge Plan - Discharge Disposition Patient Disposition: Discharge to SNF - Discharge Condition Condition: Stable - Discharge Order Discharge Orders: Discharge Order (Routine); Ordered 03/24/18 Ordered By: Will Glass - Discharge Details Anticipated Discharge Date: 03/24/18 Discharge Comment: DC today after HD - Physicians Team Primary Care Provider: Jacinto Chakraborty V Attending Provider: Will Glass Other Providers: Philip Pastrana MD ; Memo Walton MD ; Maribel Alba MD ; Antony Fortune MD ; Rod Ortiz MD ; [facility] ; [facility] ; Lacho Solorzano MD ; Cecil Sam MD ; Agustín Bustos MD
[2018-03-24] MEDS: Sod Chloride 0.9% Inj 1,000 ML IV.CONT SCH (15:58)
[2018-03-24] MEDS: Heparin 10,000 UNITS/10 ML Vial (for IV use) OTHER PRN (16:13)
== END 2018-03-24 16:50 ==
LOC: NEPE 07:39 → NEDA 07:39 → N07 13:37
PROVIDERS: ADMIT Internal Medicine; ATTEND Internal Medicine

== ENCOUNTER 2018-04-11 10:43 | Observation (INO) ==
[2018-04-11] MEDS ORDERED: Metoprolol Tartrate 25 MG Tablet PO SCH (11:08)
[2018-04-11] MEDS ORDERED: Chlorhexidine Gluconate 2% 1 Pack (2 Cloths) TOPICAL SCH (11:08)
--- NOTE | 2018-04-11 11:56 | P.HPVS ---
History of Present Illness Chief Complaint: ESRD, need for HD access History of Present Illness: 83 yo male with ESRD, s/p R UE AVG that ultimately occluded. Presents for LEFT arm AVG. No autogenous options. no recent F/C. - Inpatient Certification If this patient has been admitted as an Inpatient: I certify that the inpatient services were ordered in accordance with Medicare regulations governing the order. This includes certification that hospital inpatient services are reasonable and necessary and in the case of services not specified as inpatient-only under 42 CFR 419.22(n), that they are appropriately provided as inpatient services in accordance to with the 2-midnight benchmark under 43 CFR 412.3(e) 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, Medical Record (Hepatic encephalopathy, dialysis patient) - Medical History Medical History: Medical History (Last Updated 04/11/18 @ 11:54 by Agustín Bustos MD) AVF (arteriovenous fistula) (Acute) Arteriovenous fistula CHF (congestive heart failure) Dementia ESRD (end stage renal disease) on dialysis History of CVA (cerebrovascular accident) Hypertension Peripheral vascular disease Type 2 diabetes mellitus with other diabetic kidney complication - Tobacco History Second Hand Smoke Exposure: No Smoking Status: Never smoker - Alcohol History How Often Do You Have a Drink Containing Alcohol: Never - Substance Use History Substance History: No History of Abuse, Unable to Obtain Medications and Allergies Active Medications: Active Medications Chlorhexidine Gluconate (Chlorhexidine 2% Cloth) 3 pack 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 [facility] Stop: 04/14/18 11:07 Lactated Ringer's (Lr 1000 Ml Inj) 1,000 mls @ 30 mls/hr IV.SIG .Q24H [facility] Stop: 04/14/18 11:14 Last Admin: 04/11/18 11:42 Dose: Not Given Sodium Chloride (Ns Inj) 500 mls @ 30 mls/hr IV.SIG .Q10H [facility] Metoprolol Tartrate (Lopressor) 25 mg PO [employer]ICAL 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 Stop: 04/14/18 11:07 Povidone Iodine (Betadine 5% Antisepsis Kit) 1 applicatio EACH NARE 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 Stop: 04/14/18 11:07 Allergies Allergy/AdvReac Type Severity Reaction Status Date / Time No Known Allergies Allergy Unknown n/a Uncoded 04/11/18 11:44 Home Medications Medication Instructions Recorded Confirmed Type B complex-vitamin C-folic acid 1 tab PO DAILY 03/07/18 04/11/18 History [Padmini-Micah] albuterol sulfate [Ventolin HFA] 1 puff INHALATION QID PRN 03/07/18 04/11/18 History allopurinol 100 mg PO DAILY 03/07/18 04/11/18 History aspirin [Aspir-81] 81 mg PO DAILY 03/07/18 03/07/18 History atorvastatin 10 mg PO DAILY 03/07/18 04/11/18 History ergocalciferol (vitamin D2) 50,000 unit PO QWEEK 03/07/18 04/11/18 History [Vitamin D2] ferrous sulfate 325 mg PO DAILY 03/07/18 04/11/18 History fluticasone 2 spray INTRANASAL DAILY 03/07/18 04/11/18 History Physical Exam Vital Signs / I&O: Intake & Output 04/10/18 04/11/18 04/11/18 18:59 06:59 18:59 Weight 77 kg Other: Weight On Admission 77 kg Neuro: no distress, flattened affect HEENT: anicteric sclera Neck: no JVD Heart: reg rate Lungs: clear respirations Vascular: palpable L UE brachial and radial pulses Caprini VTE Risk Assessment Caprini VTE Risk Assessment: No/Low Risk (score <= 1) (intraop heparin) Caprini Risk Assessment Model: Point Value = 1 Point Value = 2 Point Value = 3 Point Value = 5 Age 41-60 Minor surgery BMI > 25 kg/m2 Swollen legs Varicose veins or History of unexplained or recurrent spontaneous Oral contraceptives or hormone replacement Sepsis (< 1 month) Serious lung disease, including pneumonia (< 1 month) Abnormal pulmonary function Acute myocardial infarction Congestive heart failure (< 1 month) History of inflammatory bowel disease Medical patient at bed rest Age 61-74 Arthroscopic surgery Major open surgery (> 45 min) Laparoscopic surgery (> 45 min) Malignancy Confined to bed (> 72 hours) Immobilizing plaster cast Central venous access Age >= 75 History of VTE Family history of VTE Factor V Leiden Prothrombin [id number] Lupus anticoagulant Anticardiolipin antibodies Elevated serum homocysteine Heparin-induced thrombocytopenia Other congenital or acquired thrombophilia Stroke (< 1 month) Elective arthroplasty Hip, pelvis, or leg fracture Acute spinal cord injury (< 1 month) Prophylaxis Regimen: Total Risk Factor Score Risk Level Prophylaxis Regimen 0-1 Low Early ambulation 2 Moderate Order ONE of the following: *Sequential Compression Device (SCD) *Heparin 5000 units SQ BID 3-4 Higher Order ONE of the following medications: *Heparin 5000 units SQ TID *Enoxaparin/Lovenox 40 mg SQ daily (WT < 150 kg, CrCl > 30 mL/min) *Enoxaparin/Lovenox 30 mg SQ daily (WT < 150 kg, CrCl > 10-29 mL/min) *Enoxaparin/Lovenox 30 mg SQ BID (WT < 150 kg, CrCl > 30 mL/min) AND/OR *Sequential Compression Device (SCD) 5 or more Highest Order ONE of the following medications: *Heparin 5000 units SQ TID (Preferred with Epidurals) *Enoxaparin/Lovenox 40 mg SQ daily (WT < 150 kg, CrCl > 30 mL/min) *Enoxaparin/Lovenox 30 mg SQ daily (WT < 150 kg, CrCl > 10-29 mL/min) *Enoxaparin/Lovenox 30 mg SQ BID (WT < 150 kg, CrCl > 30 mL/min) AND *Sequential Compression Device (SCD) Assessment and Plan - Assessment (1) ESRD (end stage renal disease) on dialysis Code(s): N18.6 - End stage renal disease; Z99.2 - Dependence on renal dialysis Status: Chronic - Plan LEFT UE AVG Daughter [phone]
[2018-04-11] MEDS ORDERED: Sodium Chlor 0.9% Inj 500 ML IV.SIG SCH (12:00)
[2018-04-11 12:37] LABS: INR 1.1 Ratio; Prothrombin Time 11.4 sec (9.8-11.6)
[2018-04-11] MEDS ORDERED: Bupivacaine PF 0.5% Inj 10 ML Vial ONE (12:42)
[2018-04-11] MEDS ORDERED: Protamine Sulfate Inj 50 MG/5 ML Vial ONE (12:42)
[2018-04-11] MEDS ORDERED: Heparin 10,000 UNITS/10 ML Vial (for IV use) ONE (12:42)
[2018-04-11] MEDS ORDERED: Thrombin Topical 20,000 UNIT Spray Kit TOPICAL ONE (12:43)
[2018-04-11] MEDS ORDERED: Heparin/NS PF Inj 500 ML ONE ×2 (12:43→13:52)
[2018-04-11] MEDS ORDERED: Lidocaine PF 1% Inj 5 ML Syringe OTHER ONE (13:23)
[2018-04-11] MEDS ORDERED: Glycopyrrolate Inj 1 MG/5 ML Syringe IV.PUSH ONE (13:23)
[2018-04-11] MEDS ORDERED: Phenylephrine/NS 1000 MCG/10ML Syringe IV.PUSH ONE (13:23)
[2018-04-11] MEDS ORDERED: Sodium Chlor 0.9% Inj 1,000 ML IV.CONT ONE (13:23)
[2018-04-11] MEDS ORDERED: Esmolol Bolus Inj 100 MG/10 ML Vial IV.PUSH ONE (13:23)
[2018-04-11] MEDS ORDERED: Morphine Inj 4 MG/ML Vial IV.PUSH PRN (14:36)
[2018-04-11] MEDS ORDERED: Bisacodyl 10 MG Supp RECTAL PRN (14:36)
--- NOTE | 2018-04-11 14:36 | P.OP ---
- Preoperative Diagnosis (1) ESRD (end stage renal disease) on dialysis - Postoperative Diagnosis (1) ESRD (end stage renal disease) on dialysis Date of procedure: 04/11/18 Procedure: LEFT brach-ax AVG with Artegraft Implants: LEFT arm artegraft Anesthesia: GETA Surgeon: Agustín Bustos MD Estimated blood loss (mL): 20 IV fluids (mL): 600 Pathology: none sent Operation and Findings: good thrill and + ulnar signals after AVG
[2018-04-11] MEDS ORDERED: Acetaminophen 325 MG Tablet PO PRN ×2 (14:39→20:44)
[2018-04-11] MEDS ORDERED: fentaNYL Citrate Inj 100 MCG/2 ML Ampul ONE (15:04)
[2018-04-11] MEDS: dilTIAZem 60 MG Tablet PO SCH (18:01)
--- NOTE | 2018-04-11 20:43 | P.CONNP ---
History of Present Illness Service: Nephrology Consult date: 04/11/18 Requesting Physician: Agustín Bustos Reason for Consult: ESRD Primary Care Provider: No Primary Care Physician Family Provider: No Primary Care Physician History of Present Illness: 83-year-old with history of dementia ESRD, diabetes who had been admitted for left upper arm AV graft, he has right upper arm AV graft is clotted off patient has procedure done he goes on dialysis on Wednesday 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, Medical Record (Hepatic encephalopathy, dialysis patient) - Medical History Medical History: Medical History (Last Reviewed 04/11/18 @ 20:42 by Angy John MD) AVF (arteriovenous fistula) (Acute) Arteriovenous fistula CHF (congestive heart failure) Dementia ESRD (end stage renal disease) on dialysis History of CVA (cerebrovascular accident) Hypertension Peripheral vascular disease Type 2 diabetes mellitus with other diabetic kidney complication - Family History Family History: Family History (Last Updated 04/11/18 @ 20:42 by Angy John MD) Other Family history of hypertension - Social History I have reviewed the patient's Social History: Yes - Tobacco History Second Hand Smoke Exposure: No Smoking Status: Never smoker - Alcohol History How Often Do You Have a Drink Containing Alcohol: Never - Substance Use History Substance History: No History of Abuse, Unable to Obtain - Travel History Recent Travel in the [place] Within the Last 8 Weeks: No Recent Travel Out of the Country Within the Last 8 Weeks: No Medications and Allergies Active Medications: Active Medications Acetaminophen (Tylenol) 650 mg PO UNSCH PRN PRN Reason: See Label Comments Al Hydroxide/Mg Hydroxide (Milk Of [place]) 30 ml PO Q12H PRN PRN Reason: Mild Constipation Albuterol (Ventolin Hfa Inh) 1 puff INH QID PRN PRN Reason: WHEEZING Allopurinol (Zyloprim) 100 mg PO DAILY [facility] Atorvastatin Calcium (Lipitor) 10 mg PO DAILY [facility] Bisacodyl (Dulcolax Supp) 10 mg RECTAL DAILY PRN PRN Reason: SEVERE CONSITIPATION Chlorhexidine Gluconate (Chlorhexidine 2% Cloth) 3 pack 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 [facility] Stop: 04/14/18 11:07 Last Admin: 04/11/18 11:30 Dose: 3 pack Diltiazem HCl (Cardizem) 60 mg PO QID [facility] Last Admin: 04/11/18 18:01 Dose: 60 mg Ergocalciferol (Vitamin D2) 50,000 unit PO QWEEK [facility] Ferrous Sulfate (Ferosul) 325 mg PO DAILY [facility] Fluticasone Propionate (Flonase Nasal [place]) 2 spray EACH NARE DAILY [facility] Furosemide (Lasix) 40 mg PO DAILY [facility] Heparin Sodium (Porcine) (Heparin Inj) 5,000 units SQ Q8H [facility] Hydromorphone HCl (Dilaudid) 2 mg PO Q4H PRN PRN Reason: PAIN SCALE 6 TO 10 Lactated Ringer's (Lr 1000 Ml Inj) 1,000 mls @ 30 mls/hr IV.SIG .Q24H [facility] Stop: 04/14/18 11:14 Last Admin: 04/11/18 11:42 Dose: Not Given Lactulose (Lactulose Liq) 30 ml PO DAILY PRN PRN Reason: SEVERE CONSITIPATION Metoprolol Tartrate (Lopressor) 25 mg PO SHIPYARD PAINTER [facility]PER [facility] Stop: 04/14/18 11:07 Last Admin: 04/11/18 12:07 Dose: Not Given Metoprolol Tartrate (Lopressor) 25 mg G-TUBE BID [facility] Miscellaneous Information (Mis Nursing Information) 1 each OTHER UNSCH PRN PRN Reason: SEE LABEL COMMENTS Stop: 04/12/18 14:54 Morphine Sulfate (Morphine Inj) 2 mg IV.PUSH Q1H PRN PRN Reason: BREAKTHROUGH PAIN Oxycodone HCl (Roxicodone) 5 mg PO Q4H PRN PRN Reason: PAIN SCALE 1 TO 5 Povidone Iodine (Betadine 5% Antisepsis Kit) 1 applicatio EACH NARE [employer] PAINTER [facility] Stop: 04/14/18 11:07 Last Admin: 04/11/18 12:07 Dose: 1 applicatio Senna/Docusate Sodium (Sol-Colace) 1 tab PO BID [facility] Sennosides (Senokot) 17.2 mg PO Q12H PRN PRN Reason: Moderate Constipation Vitamin B Complex/Vit C/Folic Acid (Nephrocaps) 1 tab PO DAILY [facility] Allergies Allergy/AdvReac Type Severity Reaction Status Date / Time No Known Allergies Allergy Unknown n/a Uncoded 04/11/18 11:44 Home Medications Medication Instructions Recorded Confirmed Type B complex-vitamin C-folic acid 1 tab PO DAILY 03/07/18 04/11/18 History [Padmini-Micah] albuterol sulfate [Ventolin HFA] 1 puff INHALATION QID PRN 03/07/18 04/11/18 History allopurinol 100 mg PO DAILY 03/07/18 04/11/18 History atorvastatin 10 mg PO DAILY 03/07/18 04/11/18 History ergocalciferol (vitamin D2) 50,000 unit PO QWEEK 03/07/18 04/11/18 History [Vitamin D2] ferrous sulfate 325 mg PO DAILY 03/07/18 04/11/18 History fluticasone 2 spray INTRANASAL DAILY 03/07/18 04/11/18 History Exam Vital signs: Vital Signs 04/11/18 11:59 04/11/18 14:53 04/11/18 14:55 Temperature 99.1 F 97.7 F Pulse Rate 81 135 H 135 H Respiratory Rate 18 12 Blood Pressure 133/67 94/57 L Pulse Oximetry 96 95 04/11/18 15:00 04/11/18 15:15 04/11/18 15:30 Temperature Pulse Rate 135 H 126 H 122 H Respiratory Rate 14 18 14 Blood Pressure 112/80 108/57 L 111/59 L Pulse Oximetry 95 94 L 94 L 04/11/18 15:45 04/11/18 16:30 04/11/18 20:00 Temperature 97.9 F Pulse Rate 132 H 118 H 94 H Respiratory Rate 16 16 18 Blood Pressure 114/65 104/51 L 113/52 L Pulse Oximetry 95 93 L Intake & Output 04/11/18 04/11/18 04/12/18 06:59 18:59 06:59 Intake Total 660 / 660 Output Total 20 / 20 Balance 640 / 640 Weight 77 kg Intake: Oral 60 / 60 Anesthesia Amount 600 / 600 Output: Estimated Blood Loss 20 / 20 Other: Weight On Admission 77 kg Narrative: GENERAL: Well-nourished, well-developed patient. SKIN: Warm and dry. HEAD: Normocephalic. EYES: No scleral icterus. No injection or drainage. NECK: Supple, trachea midline. No JVD or lymphadenopathy. CARDIOVASCULAR: Regular rate and rhythm without murmurs, gallops, or rubs. RESPIRATORY: Breath sounds equal bilaterally. No accessory muscle use. GASTROINTESTINAL: Abdomen soft, non-tender, nondistended. EXTREMITIES: Left upper extremity AV graft NEUROLOGICAL: Awake, confused Results - Lab Results 04/11/18 11:40 Assessment and Plan - Assessment (1) ESRD (end stage renal disease) on dialysis Code(s): N18.6 - End stage renal disease; Z99.2 - Dependence on renal dialysis Status: Chronic (2) Hypertension Code(s): I10 - Essential (primary) hypertension Status: Chronic (3) Diabetes mellitus Code(s): E11.9 - Type 2 diabetes mellitus without complications Status: Acute (4) Altered mental status Code(s): R41.82 - Altered mental status, unspecified Status: Acute - Plan Hemodialysis This will be arranged for tomorrow Continue supportive care Left upper extremity AV graft (2) Hypertension Qualifiers: Hypertension type: essential hypertension Qualified Code(s): I10 - Essential (primary) hypertension
[2018-04-11] MEDS ORDERED: Sod Chloride 0.9% Inj 1,000 ML IV.CONT PRN (20:44)
[2018-04-11] MEDS ORDERED: Sod Chloride 0.9% Inj 1,000 ML OTHER PRN ×2 (20:44→21:00)
[2018-04-11] MEDS ORDERED: Albumin Human 25% Inj 100 ML IV.SIG PRN (20:44)
[2018-04-11] MEDS ORDERED: Gelatin 12 MM/7 MM Topical Foam TOPICAL PRN (20:44)
[2018-04-11] MEDS ORDERED: Heparin 10,000 UNITS/10 ML Vial (for IV use) OTHER PRN ×2 (20:44)
[2018-04-11] MEDS: Metoprolol Tartrate 25 MG Tablet G-TUBE SCH (22:21)
--- NOTE | 2018-04-11 22:56 | MP ---
cc: Agustín Bustos MD DATE OF OPERATION: 04/11/2018 PREOPERATIVE DIAGNOSIS: End-stage renal disease, needs dialysis access. POSTOPERATIVE DIAGNOSIS: End-stage renal disease, needs dialysis access. PROCEDURE PERFORMED: Left upper extremity brachial artery axillary vein arteriovenous graft with Artegraft. ATTENDING SURGEON: Agustín Bustos MD AUTOGLAZIER SURGEON: Savanna Zavala ANESTHESIA: General. INDICATIONS FOR PROCEDURE: Mr. Root is an elderly gentleman with end-stage renal disease who needs dialysis access. He has failed right upper extremity access and taken to the operating room for left upper extremity access. DESCRIPTION OF PROCEDURE: Informed consent obtained from the patient, he was taken to the operating room and placed supine on the operating table. An appropriate timeout was taken to ensure the patient's identity, operative site and planned procedure. The administration of 1 gram of vancomycin was initiated prior to skin incision and will be discontinued after a single preoperative dose. Vancomycin was chosen because of the patient's end-stage renal disease. Everyone in the room agreed with timeout and we proceeded. His left arm was prepped and draped. An incision was made over the antecubitum, carried down through subcutaneous tissue with electrocautery. The brachial artery was identified and dissected free for several centimeters. A separate incision was made in the patient's axilla, carried down through subcutaneous tissue with electrocautery and the axillary vein was identified. A curvilinear tunnel was then created between these 2 and the Artegraft was brought up onto the field and prepared in the standard fashion. It was flushed, distended, marked for orientation and passed through the tunnel. The patient was systemically heparinized with 3000 units of IV heparin. Proximal distal control of the brachial artery was obtained with profunda clamps, and a longitudinal arteriotomy was made with an 11 blade, extended with Falconer scissors. The graft was spatulated and sewn end-to-side with running 5-0 Prolene suture. At the completion, it was flushed and noted to be hemostatic. The clamps were released and the Adriana softjaw clamp was placed on the Artegraft. The proximal and distal control of the axillary vein were obtained with profunda clamps and a longitudinal venotomy was made with an 11 blade, extended with Yaniv scissors. The graft was cut to appropriate length, spatulated and sewn end-to-side with running 5-0 Prolene suture. At the completion, it was flushed and noted to be hemostatic. There was a nice thrill in the graft and Doppler signal in the wrist. Heparin was reversed with protamine. The wounds were infiltrated with Marcaine and closed with 2-0 Polysorb, 3-0 Polysorb and 4-0 Monocryl. Sponge and needle counts were correct at the end of the case. I was present for the edmondson and critical portions. MD MICHELLE Layne/rodolfo , 09:26 PM , 09:32 PM
[2018-04-11 23:32] LABS: Hepatitis A IgM Antibody Nonreactive (Nonreactive); Hepatitits B Surface Antigen Nonreactive (Nonreactive)
[2018-04-12 00:27] VITALS: RESP 16
[2018-04-12] MEDS: dilTIAZem 60 MG Tablet PO SCH ×3 (00:33→14:35)
[2018-04-12] MEDS: Senna/Docusate Sodium 8.6/50 MG Tablet PO SCH ×2 (00:34→08:13)
[2018-04-12 05:36] LABS: Hematocrit 29.7 % (39.0-51.0); Hemoglobin 9.1 gm/dL (13.0-17.0); Mean Corpuscular Hemoglobin 23.8 pg (27.0-34.0); Mean Corpuscular Volume 77.4 fL (80.0-100.0); Mean Platelet Volume 6.9 fL (7.0-11.0); Platelet Count 222 th/mm3 (150-450); Red Blood Count 3.84 mil/mm3 (4.50-5.90); Red Cell Distribution Width 18.3 % (11.6-17.2); White Blood Count 7.4 th/mm3 (4.0-11.0)
[2018-04-12 05:41] LABS: Mean Corpuscular HGB Conc 30.8 % (32.0-36.0)
[2018-04-12 06:02] LABS: Calcium 9.1 mg/dL (8.5-10.1); Carbon Dioxide 22.1 meq/L (21.0-32.0); Potassium 4.3 meq/L (3.5-5.1)
[2018-04-12] MEDS: Metoprolol Tartrate 25 MG Tablet G-TUBE SCH (08:13)
[2018-04-12] MEDS ORDERED: Ferrous Sulfate 325 MG Tablet PO SCH (09:00)
[2018-04-12] MEDS ORDERED: Furosemide 40 MG Tablet PO SCH (09:00)
[2018-04-12] MEDS ORDERED: Allopurinol 100 MG Tablet PO SCH (09:00)
[2018-04-12] MEDS ORDERED: Vitamin B Complex/Vit C/Folic Tablet PO SCH (09:00)
[2018-04-12 09:41] VITALS: BP 119/65; TEMP 98.8; O2SAT 93
--- NOTE | 2018-04-12 10:28 | P.PNVS ---
Subjective Post Op Day #: 1 Procedure: LEFT brach-ax AVG with Artegraft Subjective/Hospital Course: 83/M pleasantly confused Pt appears comfortable and in NAD + thrill near L UE AVF incision intact w/o R/S/D Objective Vital Signs / I&O: Vital Signs 04/11/18 11:59 04/11/18 14:53 04/11/18 14:55 Temperature 99.1 F 97.7 F Pulse Rate 81 135 H 135 H Respiratory Rate 18 12 Blood Pressure 133/67 94/57 L Pulse Oximetry 96 95 04/11/18 15:00 04/11/18 15:15 04/11/18 15:30 Temperature Pulse Rate 135 H 126 H 122 H Respiratory Rate 14 18 14 Blood Pressure 112/80 108/57 L 111/59 L Pulse Oximetry 95 94 L 94 L 04/11/18 15:45 04/11/18 16:30 04/11/18 20:00 Temperature 97.9 F Pulse Rate 132 H 118 H 98 H Respiratory Rate 16 16 18 Blood Pressure 114/65 104/51 L 113/52 L Pulse Oximetry 95 93 L 04/11/18 21:00 04/11/18 22:00 04/11/18 22:19 Temperature Pulse Rate 94 H 96 H Respiratory Rate Blood Pressure 102/55 L Pulse Oximetry 04/12/18 00:00 04/12/18 03:00 04/12/18 03:51 Temperature 98.5 F 98.1 F Pulse Rate 64 120 H 97 H Respiratory Rate 16 16 Blood Pressure 110/78 112/68 Pulse Oximetry 97 94 L 04/12/18 04:00 04/12/18 05:00 04/12/18 06:00 Temperature Pulse Rate 73 118 H 92 H Respiratory Rate Blood Pressure Pulse Oximetry 04/12/18 07:00 04/12/18 08:00 Temperature 98.8 F Pulse Rate 114 H 93 H Respiratory Rate 16 Blood Pressure 119/65 Pulse Oximetry 93 L Intake & Output 04/11/18 04/12/18 04/12/18 18:59 06:59 18:59 Intake Total 660 / 660 550 / 550 Output Total 20 / 20 0 / 0 Balance 640 / 640 550 / 550 Weight 77 kg 74.5 kg Intake: IV 500 / 500 Heparin/NS PF Inj 500 ML @ 0 500 / 500 mls/hr .ROUTE .STK-MED ONE Rx#: [id number] Oral 60 / 60 50 / 50 Anesthesia Amount 600 / 600 Output: Urine 0 / 0 Estimated Blood Loss 20 / 20 Other: Weight On Admission 77 kg Exam: Pleasantly confused 83/M hx of + thrill Incision intact w/o R/D/S Equal industrial recruiter strength Pt denied hand pain Laboratory Results - last 24 hr 04/11/18 04/11/18 04/11/18 11:40 11:46 21:30 WBC RBC Hgb Hct MCV MCH MCHC RDW Plt Count MPV PT 11.4 INR 1.1 Sodium Potassium 3.6 Chloride Carbon Dioxide Anion Gap BUN Creatinine Estimated GFR Random Glucose Calcium Hepatitis A IgM Ab Nonreactive Hep Bs Antigen Nonreactive Hep B Core IgM Ab Nonreactive Hep C IgG Ab Nonreactive 04/12/18 04/12/18 05:12 05:12 WBC 7.4 RBC 3.84 L Hgb 9.1 L Hct 29.7 L MCV 77.4 L MCH 23.8 L MCHC 30.8 L RDW 18.3 H Plt Count 222 D MPV 6.9 L PT INR Sodium 133 L Potassium 4.3 Chloride 96 L Carbon Dioxide 22.1 Anion Gap 15 BUN 56 H Creatinine 10.12 H* Estimated GFR 6 L Random Glucose 107 H Calcium 9.1 Hepatitis A IgM Ab Hep Bs Antigen Hep B Core IgM Ab Hep C IgG Ab Assessment and Plan - Assessment (1) ESRD (end stage renal disease) on dialysis Code(s): N18.6 - End stage renal disease; Z99.2 - Dependence on renal dialysis Status: Chronic - Plan Pt s/p LEFT UE AVG POD 1 Pt doing well No complaints Pain controlled Discussed plan of care with daughter ([phone]) Plan Pt to HD Pt clear for D/C post HD Arranged out pt f/u Discussed and reviewed post operative care and management with pt and daughter Discharge Planning: Today post HD
--- NOTE | 2018-04-12 10:39 | P.DS ---
Discharge Summary - Admission Date 04/11/18 14:36 - Admission Diagnosis (1) ESRD (end stage renal disease) on dialysis - Discharge Date 04/12/18 - Discharge Diagnosis (1) ESRD (end stage renal disease) on dialysis Status: Chronic - Summary Brief History from admission: 83 yo male with ESRD, s/p R UE AVG that ultimately occluded. Presents for LEFT arm AVG. No autogenous options. no recent F/C. Procedure: LEFT brach-ax AVG with Artegraft Significant Findings: + thrill No hand pain Incision intact Abnormal Lab Results 04/11/18 04/11/18 04/11/18 11:40 11:46 21:30 WBC RBC Hgb Hct MCV MCH MCHC RDW Plt Count MPV PT 11.4 INR 1.1 Sodium Potassium 3.6 Chloride Carbon Dioxide Anion Gap BUN Creatinine Estimated GFR Random Glucose Calcium Hepatitis A IgM Ab Nonreactive Hep Bs Antigen Nonreactive Hep B Core IgM Ab Nonreactive Hep C IgG Ab Nonreactive 04/12/18 04/12/18 05:12 05:12 WBC 7.4 RBC 3.84 L Hgb 9.1 L Hct 29.7 L MCV 77.4 L MCH 23.8 L MCHC 30.8 L RDW 18.3 H Plt Count 222 D MPV 6.9 L PT INR Sodium 133 L Potassium 4.3 Chloride 96 L Carbon Dioxide 22.1 Anion Gap 15 BUN 56 H Creatinine 10.12 H* Estimated GFR 6 L Random Glucose 107 H Calcium 9.1 Hepatitis A IgM Ab Hep Bs Antigen Hep B Core IgM Ab Hep C IgG Ab Hospital Course: 83/ pleasantly confused male with ESRD Pt s/p R UE AVG that ultimately occluded Pt presents for LEFT arm AVG due to no autogenous options Pt s/p L UE AVG POD 1 doing well w/o complaints No hand pain + thrill Incision intact HD today Pt clear for d/c after HD E- forcse reviewed, Written Rx provided to pt for post surgical out pt pain management Arranged out pt f/u - Discharge Instructions Any questions or concerns: Call [facility] [phone] Discharge Plan - Discharge Disposition Patient Disposition: 03 Discharge to SNF - Discharge Condition Condition: Good - Discharge Order Discharge Orders: Discharge Order (Routine); Ordered 04/12/18 Ordered By: Gill De Guzman - Physicians Team Primary Care Provider: Primary Care Stephanie Apodaca Attending Provider: Agustín Bustos Other Providers: Angy John MD - Rxs /Orders / Referrals /Forms Prescriptions: Continue acetaminophen 325 mg Tablet 650 mg PO UNSCH PRN (Reason: See Label Comments) RF: 0 albuterol sulfate [Ventolin HFA] 90 mcg/actuation Hfa Aerosol Inhaler 1 puff INHALATION QID PRN (Reason: Wheezing) allopurinol 100 mg Tablet 100 mg PO DAILY atorvastatin 10 mg Tablet 10 mg PO DAILY B complex-vitamin C-folic acid [Padmini-Micah] 0.8 mg Tablet 1 tab PO DAILY diltiazem HCl 60 mg Tablet 60 mg PO QID Qty: 0 RF: 0 ergocalciferol (vitamin D2) [Vitamin D2] 50,000 unit Capsule 50,000 unit PO QWEEK ferrous sulfate 325 mg (65 mg iron) Tablet 325 mg PO DAILY fluticasone 50 mcg/actuation Matteson,Suspension 2 spray INTRANASAL DAILY furosemide 40 mg Tablet 40 mg PO DAILY Qty: 30 metoprolol tartrate 25 mg Tablet 25 mg G-Tube BID 30 Days Qty: 60 RF: 0 Referrals: Primary Care Stephanie Apodaca [Primary Care Provider] - See Instructions Agustín Bustos MD [Physician] - See Instructions (Post op f/u is scheduled on 05/06/18 at 1:45) - Discharge Instructions Patient Printed Instructions: Arteriovenous Graft Placement for Hemodialysis ( DC), End Stage Kidney Disease (GEN) - Post Discharge Care Plan Care Plan Goals: D/C Instructions w Please call [phone] if you have any problems or have questions regarding your hospitalization. Diet: You may resume a regular diet as you were eating at home before your admission. Activity: Increase your activity level gradually. Keep surgical extremities elevated when at rest. This will help limit the swelling, bruising and discomfort normally present after surgery. Walking is a good form of light exercise. Go for a walk at least 3 times per day. No heavy lifting (lifting over 10 pounds) for at least 4 weeks from surgery. Check with your surgeon to ensure when you are cleared for heavy lifting and full-intensity exercising. Your strength will gradually improve. No driving or operating motorized vehicles while on prescription pain medications. No swimming until wounds fully healed. Return to work when cleared by MD/PA/PRESS SHOP SUPERVISOR. Bathing: Shower daily. Gently let soap and water run over your incision and pat dry. Do not scrub the incision/wound. Don't soak in a bath or submerge your incision in water until your incision is healed and evaluated by your physician at follow-up (usually two weeks). Wound Care: INCISION SITE CARE INSTRUCTIONS You may leave your incision open to air. Keep your incision clean and dry, unless showering. See above. Moisture near the incision will cause the wound to open. No lotions, creams, ointments, or powders on incisions until they are well- healed. If you have glue over the incision(s), allow it to fall off naturally in 1-3 weeks If present, parish/sutures will be removed 2-3 weeks after surgery during your follow-up clinic visit. If present, change dressing/bandage when soaked/soiled as needed. Observe wound daily, checking for signs and symptoms of infection including: foul odor, drainage from the incision, increased redness, increased pain at incision, or increased swelling. Pain Control: Expect post-operative pain for 1-4 weeks after surgery. Your pain will improve gradually. You may have been provided with a prescription for pain medication. Please take as directed, and be aware of side effects such as drowsiness, constipation and mild stomach discomfort. Pain pills on an empty stomach can cause nausea, so eat a small amount of food, such as crackers, when taking these pills. Take [id number] stool softeners (Colace or Senna) with your prescribed pain medication. Acetaminophen (500mg every 6 hours) or Ibuprofen (400mg every 6 hours) may be used in conjunction with narcotics to relieve pain. DO NOT take more than 4 grams (4000mg) of Tylenol in one day, as this can harm your liver. DO NOT take ibuprofen IF: you have an allergy to non-steroidal anti-inflammatory medications , you are taking Coumadin, you have been told you have kidney problems, or you have a history of gastrointestinal bleeding or ulcers. DO NOT take more than 3.2 grams (3200mg) of ibuprofen in one day. You may also find relief from using heat packs or pads or ice packs. Bowel Regimen for Constipation: People who undergo surgery are likely to develop post-operative constipation. Exposure to narcotics and changes in diet, fluid intake, and physical activity are known contributors to constipation. We recommend routine stool softeners and /or laxatives after surgery for most patients. Start by taking one medication. You can increase as directed to relieve constipation. Stop taking these medications if you develop diarrhea. These medications are available over-the- counter and do not require a prescription: Colace is a stool softener. We recommend starting at 100mg orally twice per day as needed for soft stools and increase to a maximum of 200mg twice daily as needed. Senna is a laxative that works by keeping water in the intestine to help stool move along the intestinal tract. Take 1 tablet daily as needed for soft stool and increase to a maximum of 2 tablets twice daily as needed. Take Senna with two full glasses of water each time. Miralax, Dulcolax and Milk of Magnesia are other kcfl-hqy-yzeommh laxatives that may be used as needed for post-operative constipation. Drink 6-8 glasses of water per day. Consume 15-30g of fiber per day: Metamucil powder, 1-2 tablespoons 1-2 times/day OR Benefiber powder, 2 tablespoons 4 times/day. Avoid straining. If you have any of the following symptoms please call immediately- [phone] Excessive swelling of the affected extremity. Sudden onset of severe or unusual pain in the affected extremity. Pain that gets worse or is not relieved by medication. Warmth, redness, or swelling in the skin around the wound. Foul drainage from incision. Extensive bruising or discoloration. Wound that opens up or pulls apart. Fever above 101.5F or shaking chills. Nausea or vomiting. Severe diarrhea or severe constipation. Dizziness or fainting. Chest pain, shortness of breath, or increased work of breathing. Weight gain >10lbs over 3-4 days. Inability to urinate for more than 6 hours. Cloudy or foul smelling urine. Urge to urinate more often than usual. Symptoms to Report to Your Doctor:Temperature 101, pain uncontrolled by medication, drainage or foul odor from incision, extensive bruising or discoloration, chest pain, shortness of breath, nausea, vomiting and dizziness.
--- NOTE | 2018-04-12 11:28 | P.PNNP ---
Subjective Interval history: seen at dialysis Physical Exam Vital signs: Vital Signs 04/11/18 11:59 04/11/18 14:53 04/11/18 14:55 Temperature 99.1 F 97.7 F Pulse Rate 81 135 H 135 H Respiratory Rate 18 12 Blood Pressure 133/67 94/57 L Pulse Oximetry 96 95 04/11/18 15:00 04/11/18 15:15 04/11/18 15:30 Temperature Pulse Rate 135 H 126 H 122 H Respiratory Rate 14 18 14 Blood Pressure 112/80 108/57 L 111/59 L Pulse Oximetry 95 94 L 94 L 04/11/18 15:45 04/11/18 16:30 04/11/18 20:00 Temperature 97.9 F Pulse Rate 132 H 118 H 98 H Respiratory Rate 16 16 18 Blood Pressure 114/65 104/51 L 113/52 L Pulse Oximetry 95 93 L 04/11/18 21:00 04/11/18 22:00 04/11/18 22:19 Temperature Pulse Rate 94 H 96 H Respiratory Rate Blood Pressure 102/55 L Pulse Oximetry 04/12/18 00:00 04/12/18 03:00 04/12/18 03:51 Temperature 98.5 F 98.1 F Pulse Rate 64 120 H 97 H Respiratory Rate 16 16 Blood Pressure 110/78 112/68 Pulse Oximetry 97 94 L 04/12/18 04:00 04/12/18 05:00 04/12/18 06:00 Temperature Pulse Rate 73 118 H 92 H Respiratory Rate Blood Pressure Pulse Oximetry 04/12/18 07:00 04/12/18 08:00 Temperature 98.8 F Pulse Rate 114 H 93 H Respiratory Rate 16 Blood Pressure 119/65 Pulse Oximetry 93 L Intake & Output 04/11/18 04/12/18 04/12/18 18:59 06:59 18:59 Intake Total 660 / 660 550 / 550 Output Total 20 / 20 0 / 0 Balance 640 / 640 550 / 550 Weight 77 kg 74.5 kg Intake: IV 500 / 500 Heparin/NS PF Inj 500 ML @ 0 500 / 500 mls/hr .ROUTE .K-MED ONE Rx#: [id number] Oral 60 / 60 50 / 50 Anesthesia Amount 600 / 600 Output: Urine 0 / 0 Estimated Blood Loss 20 / 20 Other: Weight On Admission 77 kg Narrative: GENERAL: Well-nourished, well-developed patient. SKIN: Warm and dry. HEAD: Normocephalic. EYES: No scleral icterus. No injection or drainage. NECK: Supple, trachea midline. No JVD or lymphadenopathy. CARDIOVASCULAR: Regular rate and rhythm without murmurs, gallops, or rubs. RESPIRATORY: Breath sounds equal bilaterally. No accessory muscle use. GASTROINTESTINAL: Abdomen soft, non-tender, nondistended. EXTREMITIES: Left upper extremity AV graft NEUROLOGICAL: Awake, confused Assessment and Plan - Assessment (1) ESRD (end stage renal disease) on dialysis Code(s): N18.6 - End stage renal disease; Z99.2 - Dependence on renal dialysis Status: Chronic (2) Hypertension Code(s): I10 - Essential (primary) hypertension Status: Chronic Qualifiers: Hypertension type: essential hypertension Qualified Code(s): I10 - Essential (primary) hypertension (3) Diabetes mellitus Code(s): E11.9 - Type 2 diabetes mellitus without complications Status: Acute (4) Altered mental status Code(s): R41.82 - Altered mental status, unspecified Status: Acute - Plan Hemodialysis seen during dialysis 1L UF Blood flow low via catheter TTS schedule to be followed OK to dc Continue supportive care Left upper extremity AV graft
[2018-04-12 12:17] VITALS: PULSE 75
[2018-04-12] MEDS ORDERED: Heparin - SQ 10,000 UNITS/ML Vial SQ SCH (14:00)
== END 2018-04-12 16:31 ==
LOC: HCPC 10:43 → HSDC 10:43
PROVIDERS: ADMIT Surgery; ATTEND Surgery
PROC: AVGFTUE (ICD-10-PCS; 2018-04-11 13:23)

== ENCOUNTER 2018-05-20 17:53 | Inpatient (IN) ==
[2018-05-20] MEDS ORDERED: Acetaminophen 650 MG Supp RECTAL ONE (18:07)
[2018-05-20] MEDS ORDERED: Sodium Chlor 0.9% Inj 500 ML IV.SIG SCH (19:00)
[2018-05-20 19:04] LABS: Baso # (Auto) 0.1 th/mm3 (0.0-0.2); Baso % (Auto) 0.6 % (0.0-2.0); Hemoglobin 8.9 gm/dL (13.0-17.0); Lymph # (Auto) 0.6 th/mm3 (1.0-4.8); Lymph % (Auto) 2.4 % (9.0-44.0); Mean Corpuscular HGB Conc 31.9 % (32.0-36.0); Mean Corpuscular Hemoglobin 24.4 pg (27.0-34.0); Mean Corpuscular Volume 76.5 fL (80.0-100.0); Mean Platelet Volume 7.6 fL (7.0-11.0); Mono # (Auto) 1.4 th/mm3 (0.0-0.9); Mono % (Auto) 6.1 % (0.0-8.0); Neut # (Auto) 21.3 th/mm3 (1.8-7.7); Neut % (Auto) 90.9 % (16.0-70.0); Platelet Count 193 th/mm3 (150-450); Red Blood Count 3.67 mil/mm3 (4.50-5.90); White Blood Count 23.4 th/mm3 (4.0-11.0)
--- NOTE | 2018-05-20 19:05 | XR ---
EXAM DATE: 05/20/2018 6:53 PM EST AGE/SEX: 83 years / Male INDICATIONS: Fever. CLINICAL DATA: This is the patient's initial encounter. Patient reports that signs and symptoms have been present for 1 day and indicates a pain score of 0/10. MEDICAL/SURGICAL HISTORY: . Dementia. Hypertension. Diabetes. CHF, CVA, PVD, RUE AVF, HLD, Pros tian Cancer, Cholecystectomy. Bladder surgery, AV Fistula 2013, AV Fistula Ligation 07/2017 due to exc essive bleeding. . COMPARISON: . FINDINGS: 2 AP views of the chest. Right subclavian central venous catheter is in place with the tip at the cav oatrial junction. No evidence of pneumothorax. Cardiac silhouette is enlarged and slightly more promi nent than on the comparison study. Mild bilateral diffuse hazy pulmonary opacity and central pulmonar y vasculature prominence. No evidence of pleural effusion. CONCLUSION: 1. Right subclavian central venous catheter in place. No evidence of pneumothorax. 2. Pulmonary vascular congestion/mild pulmonary edema. Electronically signed by: Ruddy Nguyen MD 05/20/2018 7:04 PM EST
--- NOTE | 2018-05-20 19:10 | CT ---
EXAM DATE: 05/20/2018 6:46 PM EST AGE/SEX: 83 years / Male INDICATIONS: Altered mental status. Fever. CLINICAL DATA: This is the patient's initial encounter. Patient reports that signs and symptoms have been present for 1 day and indicates a pain score of Nonresponsive. MEDICAL/SURGICAL HISTORY: Congestive heart failure. Transient ischemic attack. Hypertension. Fis geni. Dementia. None. RADIATION DOSE: 56.35 CTDI (mGy) COMPARISON: [facility] [place], CT HEAD W/O CONTRAST, 03/11/2018. [facility] [place], MR HEAD W/O CONTRAST, 03/15/2018. . TECHNIQUE: CT of the head without contrast. Using automated exposure control and adjustment of the mA and/or kV according to patient size, radiation dose was kept as low as reasonably achievable to ob tain optimal diagnostic quality images. DICOM format image data is available electronically for revi ew and comparison. FINDINGS: Cerebrum: Encephalomalacia in the left temporal lobe, diffuse atrophy, asymmetric ex vacuo enlargeme nt of the left lateral ventricle, bilateral basal ganglia lacunar infarcts, and hypodensity in the page pratentorial white matter on the left side, stable in appearance from prior examination. No acute fin dings. No evidence of midline shift or extra-axial fluid collections. Posterior Fossa: The cerebellum and brainstem are intact. The 4th ventricle is midline. The cerebe llopontine angle is unremarkable. Extracranial: The visualized portion of the orbits is intact. Skull: The calvaria is intact. No evidence of skull fracture. CONCLUSION: 1. No acute findings in the brain. . Electronically signed by: Blayne May MD 05/20/2018 7:08 PM EST
[2018-05-20 19:16] LABS: Activated Partial Thrombo Time 35.4 sec (23.4-31.7); INR 1.2 Ratio; Prothrombin Time 12.3 sec (9.8-11.6)
[2018-05-20 19:27] LABS: Alanine Aminotransferase 28 U/L (12-78)
[2018-05-20 19:30] LABS: Anion Gap 12 meq/L (5-15)
[2018-05-20 19:31] LABS: Alkaline Phosphatase 105 U/L (45-117); Aspartate Aminotransferase 55 U/L (15-37); Blood Urea Nitrogen 42 mg/dL (7-18); Calcium 9.2 mg/dL (8.5-10.1); Chloride 97 meq/L (98-107); Creatine Kinase 158 U/L (39-308); Glomerular Filtration Rate 7 mL/min (>89); Glucose,Random 157 mg/dL (74-106); Sodium 134 meq/L (136-145); Total Protein 7.9 g/dL (6.4-8.2); Troponin I 0.09 ng/mL (0.02-0.05)
[2018-05-20 19:33] LABS: Potassium 5.1 meq/L (3.5-5.1)
[2018-05-20] MEDS ORDERED: Piperacil/Tazo 4.5 GM Premix 4.5 GM/100 ML BAG IV.SIG ONE (19:39)
[2018-05-20] MEDS ORDERED: Vancomycin Inj 1,000 MG in Sodium Chlor 0.9% Inj 250 ML IV.SIG ONE (19:39)
--- NOTE | 2018-05-20 19:42 | ED ---
HPI General Chief complaint: Fever Stated complaint: Fever Time Seen by Provider: 05/20/18 18:04 Source: patient and EMS Mode of arrival: EMS Limitations: altered mental status History of Present Illness HPI narrative: Patient is an 83-year-old male, brought in by EMS from his care home due to altered mental status. Patient found to have fever and tachycardia at his care home. Patient has history of end-stage renal disease , per EMS received dialysis Wednesday, , Wednesday. EMS states he has not missed dialysis, but he is not able to provide any history. No other history available. Related Data Home Medications Medication Instructions Recorded Confirmed B complex-vitamin C-folic acid 1 tab PO DAILY 03/07/18 05/20/18 [Padmini-Micah] albuterol sulfate [Ventolin HFA] 1 puff INHALATION QID PRN 03/07/18 05/20/18 allopurinol 100 mg PO DAILY 03/07/18 05/20/18 atorvastatin 10 mg PO DAILY 03/07/18 05/20/18 ergocalciferol (vitamin D2) 50,000 unit PO QWEEK 03/07/18 05/20/18 [Vitamin D2] ferrous sulfate 325 mg PO DAILY 03/07/18 05/20/18 fluticasone 2 spray INTRANASAL DAILY 03/07/18 05/20/18 Previous Rx's Medication Instructions Recorded acetaminophen 650 mg PO UNSCH PRN tab 03/18/18 furosemide 40 mg PO DAILY #30 mg 03/18/18 diltiazem HCl 60 mg PO QID #0 tab 03/19/18 Allergies Allergy/AdvReac Type Severity Reaction Status Date / Time No Known Allergies Allergy Unknown n/a Uncoded 04/11/18 11:44 Review of Systems ROS Unobtainable ROS Unobtainable: unobtainable due to mental status PMFSH Medical History Medical History AVF (arteriovenous fistula) (Acute) Arteriovenous fistula (Acute) CHF (congestive heart failure) (Acute) Dementia (Acute) ESRD (end stage renal disease) on dialysis (Acute) History of CVA (cerebrovascular accident) (Acute) Hypertension (Acute) Peripheral vascular disease (Acute) Type 2 diabetes mellitus with other diabetic kidney complication (Acute) Family History Family History Other Family history of hypertension Social History Social History Substance History: No History of Abuse and Unable to Obtain Second Hand Smoke Exposure: No Smoking Status: Unknown if ever smoked How Often Do You Have a Drink Containing Alcohol: Unable to Obtain Immunization History Tetanus Immunization: Unsure Exam Narrative Exam Narrative: GENERAL: Awake and alert, however, does not answer many questions. SKIN: Focused skin assessment warm/dry. No wounds or signs of infection. HEAD: Atraumatic. Normocephalic. EYES: Pupils equal and round. No scleral icterus. ENT: Mucous membranes pink and moist. NECK: Trachea midline. No JVD. CARDIOVASCULAR: Tachycardia. RESPIRATORY: No accessory muscle use. Clear to auscultation. Breath sounds equal bilaterally. GASTROINTESTINAL: Abdomen soft, non-tender, nondistended. MUSCULOSKELETAL: No obvious deformities. No clubbing. No cyanosis. No edema. NEUROLOGICAL: Awake and alert, but does not want to talk much. No obvious cranial nerve deficits. Motor grossly within normal limits. Course Initial Documented Vital Signs Temperature 101.1 F H 05/20/18 18:02 Pulse Rate 114 H 05/20/18 18:02 Respiratory Rate 25 H 05/20/18 18:02 Blood Pressure 136/64 05/20/18 18:02 Pulse Oximetry 100 05/20/18 18:02 Last Documented Vital Signs Temperature 101.1 F H 05/20/18 18:02 Pulse Rate 97 H 05/20/18 19:25 Respiratory Rate 22 05/20/18 19:25 Blood Pressure 136/64 05/20/18 19:25 Pulse Oximetry 100 05/20/18 19:25 Medical Decision Making [facility] Narrative Medical decision making narrative: Patient is an 83 year old male who comes in due to AMS. Exam shows tachycardia. IV established, labs sent. Labs concerning for WBC count of 23.4. Troponin is mildly elevated, however this is likely due to ESRD and sepsis. Creatinine is 8.33 and CXR shows pulmonary edema, so it is unclear if patient actually received dialysis yesterday. He is due for dialysis tomorrow. Given Vancomycin and Zosyn. Given Tylenol. Tachycardia improved without Cardizem. Admitted for further management. Fluids withheld due to ESRD and pulmonary edema. Medical Screen Exam Complete: Yes Emergency Medical Condition: Yes Differential Diagnosis Differential Diagnosis: sepsis vs pneumonia vs electrolyte abnormalities Medical Records Medical records reviewed: Yes I reviewed the patient's medical records. Lab Data Lab results reviewed: Yes I reviewed the patient's lab results. Result diagrams: 05/20/18 18:31 18 18:31 Lab Results 05/20/18 05/20/18 05/20/18 Range/Units 18:31 18:31 18:31 WBC 23.4 H (4.0-11.0) th/mm3 RBC 3.67 L (4.50-5.90) mil/mm3 Hgb 8.9 L (13.0-17.0) gm/dL Hct 28.0 L (39.0-51.0) % MCV 76.5 L (80.0-100.0) fL MCH 24.4 L (27.0-34.0) pg MCHC 31.9 L (32.0-36.0) % RDW 21.0 H (11.6-17.2) % Plt Count 193 (150-450) th/mm3 MPV 7.6 (7.0-11.0) fL Prelim Diff (Auto) Slide review pending Neut % (Auto) 90.9 H (16.0-70.0) % Lymph % (Auto) 2.4 L (9.0-44.0) % Burnett % (Auto) 6.1 (0.0-8.0) % Eos % (Auto) 0.0 (0.0-4.0) % Baso % (Auto) 0.6 (0.0-2.0) % Neut # (Auto) 21.3 H (1.8-7.7) th/mm3 Lymph # (Auto) 0.6 L (1.0-4.8) th/mm3 Burnett # (Auto) 1.4 H (0.0-0.9) th/mm3 Eos # (Auto) 0.0 (0.0-0.4) th/mm3 Baso # (Auto) 0.1 (0.0-0.2) th/mm3 Differential Comment . PT 12.3 H (9.8-11.6) sec INR 1.2 Ratio APTT 35.4 H (23.4-31.7) sec Sodium 134 L (136-145) meq/L Potassium 5.1 (3.5-5.1) meq/L Chloride 97 L (98-107) meq/L Carbon Dioxide 25.0 (21.0-32.0) meq/L Anion Gap 12 (5-15) meq/L BUN 42 H (7-18) mg/dL Creatinine 8.33 H (0.60-1.30) mg/dL Estimated GFR 7 L (>89) mL/min Random Glucose 157 H (74-106) mg/dL Lactic Acid (0.4-2.0) mmol/L Calcium 9.2 (8.5-10.1) mg/dL Total Bilirubin 0.5 (0.2-1.0) mg/dL AST 55 H (15-37) U/L ALT 28 (12-78) U/L Alkaline Phosphatase 105 (45-117) U/L Total Creatine Kinase 158 (39-308) U/L CK-MB (CK-2) Less than 1.0 (0.5-3.6) ng/mL Troponin I 0.09 H (0.02-0.05) ng/mL Total Protein 7.9 (6.4-8.2) g/dL Albumin 3.0 L (3.4-5.0) g/dL 05/20/18 Range/Units 18:31 WBC (4.0-11.0) th/mm3 RBC (4.50-5.90) mil/mm3 Hgb (13.0-17.0) gm/dL Hct (39.0-51.0) % MCV (80.0-100.0) fL MCH (27.0-34.0) pg MCHC (32.0-36.0) % RDW (11.6-17.2) % Plt Count (150-450) th/mm3 MPV (7.0-11.0) fL Prelim Diff (Auto) Neut % (Auto) (16.0-70.0) % Lymph % (Auto) (9.0-44.0) % Burnett % (Auto) (0.0-8.0) % Eos % (Auto) (0.0-4.0) % Baso % (Auto) (0.0-2.0) % Neut # (Auto) (1.8-7.7) th/mm3 Lymph # (Auto) (1.0-4.8) th/mm3 Burnett # (Auto) (0.0-0.9) th/mm3 Eos # (Auto) (0.0-0.4) th/mm3 Baso # (Auto) (0.0-0.2) th/mm3 Differential Comment PT (9.8-11.6) sec INR Ratio APTT (23.4-31.7) sec Sodium (136-145) meq/L Potassium (3.5-5.1) meq/L Chloride (98-107) meq/L Carbon Dioxide (21.0-32.0) meq/L Anion Gap (5-15) meq/L BUN (7-18) mg/dL Creatinine (0.60-1.30) mg/dL Estimated GFR (>89) mL/min Random Glucose (74-106) mg/dL Lactic Acid 1.9 (0.4-2.0) mmol/L Calcium (8.5-10.1) mg/dL Total Bilirubin (0.2-1.0) mg/dL AST (15-37) U/L ALT (12-78) U/L Alkaline Phosphatase (45-117) U/L Total Creatine Kinase (39-308) U/L CK-MB (CK-2) (0.5-3.6) ng/mL Troponin I (0.02-0.05) ng/mL Total Protein (6.4-8.2) g/dL Albumin (3.4-5.0) g/dL Imaging Data Radiologist's impression: Chest X-Ray 05/20/18 18:07 CONCLUSION: 1. Right subclavian central venous catheter in place. No evidence of pneumothorax. 2. Pulmonary vascular congestion/mild pulmonary edema. Head CT 05/20/18 18:07 CONCLUSION: 1. No acute findings in the brain. . ECG Data EKG Prior to Arrival: No Attestation: I personally reviewed and interpreted this ECG as follows: Interpretation: ECG shows atrial flutter at a rate of 96 Discharge Plan Discharge Disposition Patient Disposition: 30 Still Patient Discharge Condition Condition: Stable Discharge Details Diagnosis: Sepsis, Acute alteration in mental status Physicians Team ED Provider: Lisa Canales Primary Care Provider: UNKNOWN, Rxs /Orders / Referrals /Forms Prescriptions: No Action atorvastatin 10 mg Tablet 10 mg PO DAILY RF: 0 allopurinol 100 mg Tablet 100 mg PO DAILY RF: 0 ferrous sulfate 325 mg (65 mg iron) Tablet 325 mg PO DAILY RF: 0 B complex-vitamin C-folic acid [Padmini-Micah] 0.8 mg Tablet 1 tab PO DAILY RF: 0 ergocalciferol (vitamin D2) [Vitamin D2] 50,000 unit Capsule 50,000 unit PO QWEEK RF: 0 albuterol sulfate [Ventolin HFA] 90 mcg/actuation Hfa Aerosol Inhaler 1 puff INHALATION QID PRN (Reason: Wheezing) RF: 0 fluticasone 50 mcg/actuation [place],Suspension 2 spray INTRANASAL DAILY RF: 0 acetaminophen 325 mg Tablet 650 mg PO UNSCH PRN (Reason: See Label Comments) RF: 0 furosemide 40 mg Tablet 40 mg PO DAILY Qty: 30 RF: 0 diltiazem HCl 60 mg Tablet 60 mg PO QID Qty: 0 RF: 0 Discharge Interventions Interventions: Vital Signs Last Done: 05/20/18 19:25 Status ED Status: With Doctor
[2018-05-20 19:47] LABS: Ovalocytes 2+; Platelet Estimate Normal (Normal); Platelet Morphology Normal (Normal); Tear Drop Cells 1+
[2018-05-20] MEDS ORDERED: Bisacodyl 10 MG Supp RECTAL PRN (19:55)
--- NOTE | 2018-05-20 20:36 | P.HPIM ---
History of Present Illness Primary Care Physician: UNKNOWN History of Present Illness: This is an 83-year-old male with a PMH of HTN, Hyperlipidemia, Dementia, CHF ( Echo 03/13/18 w/ EF 65-70%), ESRD on HD T//S, s/p LUE AV Graft by Dr. Bustos 04/11/18, DM and h/o CVA who was sent to the ER from SNF due to AMS, fever and tachycardia. Pt unable to provide any history at this time. Per report, pt noted to have episode of fever, tachycardia and increased confusion today. Last HD on , no missed dialysis per SNF. On arrival, BP 136/64, HR 114, O2 sat 100% on 3L NC, Temp 101.1. WBC 23.4. INR 1.2. Creatinine 8.33. Troponin 0 0.09. CXR with right subclavian central venous catheter in place, no pneumothorax, mild pulmonary edema. CT Head no acute findings. S/p Vanc/ Zosyn in ER. - Diagnosis (1) Encephalopathy (2) Sepsis (3) ESRD (end stage renal disease) on dialysis (4) Afib Inpatient Certification: I certify that the inpatient services were ordered in accordance with Medicare regulations governing the order. This includes certification that hospital inpatient services are reasonable and necessary and in the case of services not specified as inpatient-only under 42 CFR 419.22(n), that they are appropriately provided as inpatient services in accordance to with the 2-midnight benchmark under 43 CFR 412.3(e) Estimated Total Length of Stay (Days): 2 Plans for Post Hospital Care: Not yet determined Review of Systems PAST FAMILY HISTORY: Unknown unobtainable due to mental status PMFSH - History History Provided By: Patient, Digital Project Manager / EMT - Medical History Medical History: Medical History (Last Reviewed 05/20/18 @ 19:50 by Lisa Canales MD) AVF (arteriovenous fistula) (Acute) Arteriovenous fistula CHF (congestive heart failure) Dementia ESRD (end stage renal disease) on dialysis History of CVA (cerebrovascular accident) Hypertension Peripheral vascular disease Type 2 diabetes mellitus with other diabetic kidney complication - Family History Family History: Family History (Last Reviewed 05/20/18 @ 19:50 by Lisa Canales MD) Other Family history of hypertension - Tobacco History Second Hand Smoke Exposure: No Smoking Status: Unknown if ever smoked - Alcohol History How Often Do You Have a Drink Containing Alcohol: Unable to Obtain - Substance Use History Substance History: No History of Abuse, Unable to Obtain - Immunization History Tetanus Immunization: Unsure Medications and Allergies Active Medications: Active Medications Acetaminophen (Tylenol) 650 mg PO Q4H PRN PRN Reason: Temp > 100.4 Al Hydroxide/Mg Hydroxide (Milk Of Magnesia Liq) 30 ml PO Q12H PRN PRN Reason: Mild Constipation Bisacodyl (Dulcolax Supp) 10 mg RECTAL DAILY PRN PRN Reason: SEVERE CONSITIPATION Vancomycin HCl 1,000 mg/ (Sodium Chloride) 250 mls @ 250 mls/hr IV.SIG ONCE ONE Stop: 05/20/18 20:38 Last Admin: 05/20/18 20:12 Dose: 250 mls/hr Sodium Chloride (Ns Inj) 1,000 mls @ 100 mls/hr IV.CONT .Q10H [place] Lactulose (Lactulose Liq) 30 ml PO DAILY PRN PRN Reason: SEVERE CONSITIPATION Ondansetron HCl (Zofran Inj) 4 mg IV.PUSH Q6H PRN PRN Reason: NAUSEA OR VOMITING Senna/Docusate Sodium (Sol-Colace) 1 tab PO BID [place] Sennosides (Senokot) 17.2 mg PO Q12H PRN PRN Reason: Moderate Constipation Allergies Allergy/AdvReac Type Severity Reaction Status Date / Time No Known Allergies Allergy Unknown n/a Uncoded 04/11/18 11:44 Home Medications Medication Instructions Recorded Confirmed Type B complex-vitamin C-folic acid 1 tab PO DAILY 03/07/18 05/20/18 History [Padmini-Micah] albuterol sulfate [Ventolin HFA] 1 puff INHALATION QID PRN 03/07/18 05/20/18 History allopurinol 100 mg PO DAILY 03/07/18 05/20/18 History atorvastatin 10 mg PO DAILY 03/07/18 05/20/18 History ergocalciferol (vitamin D2) 50,000 unit PO QWEEK 03/07/18 05/20/18 History [Vitamin D2] ferrous sulfate 325 mg PO DAILY 03/07/18 05/20/18 History fluticasone 2 spray INTRANASAL DAILY 03/07/18 05/20/18 History Exam Vital signs: Vital Signs 05/20/18 18:02 05/20/18 19:25 Temperature 101.1 F H Pulse Rate 114 H 97 H Respiratory Rate 25 H 22 Blood Pressure 136/64 136/64 Pulse Oximetry 100 100 Intake & Output 05/20/18 05/20/18 05/21/18 06:59 18:59 06:59 Intake Total 350 / 350 Balance 350 / 350 Weight 68.039 kg Intake: IV 350 / 350 Zosyn 4.5 GM Premix 4.5 gm In 100 / 100 100 ml @ 200 mls/hr IV.SIG ONCE ONE Rx#:[id number] NS Inj 500 ML @ 1000 mls/hr IV. 250 / 250 SIG BOLUS [place] Rx#:[id number] Narrative: PE: GENERAL: Elderly black male in no acute distress, not answering questions, not following commands. SKIN: Focused skin assessment warm and dry. HEENT: PERRLA, EOMI. No scleral icterus or conjunctival pallor. No lid lag or facial droop. CARDIOVASCULAR: Regular rate and rhythm. No obvious murmurs to auscultation. No chest tenderness to palpation. Right Perma-Cath, LUE graft. RESPIRATORY: No obvious rhonchi or wheezing. Clear to auscultation. Breath sounds equal bilaterally. GASTROINTESTINAL: Abdomen soft, non-tender, nondistended. BS normal. MUSCULOSKELETAL: Extremities without clubbing, cyanosis, or edema. No obvious deformities. NEUROLOGICAL: Awake, alert, not answering questions. No focal neurologic deficits. Moving both upper and lower extremities spontaneously. PSYCHIATRIC: Appropriate mood and affect. Insight and judgment normal. Results - Labs CBC & Chem 7: 05/20/18 18:31 05/20/18 18:31 Labs: Short CBC 05/20/18 Range/Units 18:31 WBC 23.4 H (4.0-11.0) th/mm3 Hgb 8.9 L (13.0-17.0) gm/dL Hct 28.0 L (39.0-51.0) % Plt Count 193 (150-450) th/mm3 [facility] 05/20/18 18:31 Sodium 134 L Potassium 5.1 Chloride 97 L Carbon Dioxide 25.0 BUN 42 H Creatinine 8.33 H Calcium 9.2 Cardiac Enzymes 05/20/18 Range/Units 18:31 Total Creatine Kinase 158 (39-308) U/L CK-MB (CK-2) Less than 1.0 (0.5-3.6) ng/mL Troponin I 0.09 H (0.02-0.05) ng/mL Liver Function 05/20/18 Range/Units 18:31 Total Bilirubin 0.5 (0.2-1.0) mg/dL AST 55 H (15-37) U/L ALT 28 (12-78) U/L Alkaline Phosphatase 105 (45-117) U/L Albumin 3.0 L (3.4-5.0) g/dL - Imaging Impressions Chest X-Ray 05/20/18 18:07 CONCLUSION: 1. Right subclavian central venous catheter in place. No evidence of pneumothorax. 2. Pulmonary vascular congestion/mild pulmonary edema. Head CT 05/20/18 18:07 CONCLUSION: 1. No acute findings in the brain. . Caprini VTE Risk Assessment Caprini VTE Risk Assessment: No/Low Risk (score <= 1) Caprini Risk Assessment Model: Point Value = 1 Point Value = 2 Point Value = 3 Point Value = 5 Age 41-60 Minor surgery BMI > 25 kg/m2 Swollen legs Varicose veins or History of unexplained or recurrent spontaneous Oral contraceptives or hormone replacement Sepsis (< 1 month) Serious lung disease, including pneumonia (< 1 month) Abnormal pulmonary function Acute myocardial infarction Congestive heart failure (< 1 month) History of inflammatory bowel disease Medical patient at bed rest Age 61-74 Arthroscopic surgery Major open surgery (> 45 min) Laparoscopic surgery (> 45 min) Malignancy Confined to bed (> 72 hours) Immobilizing plaster cast Central venous access Age >= 75 History of VTE Family history of VTE Factor V Leiden Prothrombin [id number] Lupus anticoagulant Anticardiolipin antibodies Elevated serum homocysteine Heparin-induced thrombocytopenia Other congenital or acquired thrombophilia Stroke (< 1 month) Elective arthroplasty Hip, pelvis, or leg fracture Acute spinal cord injury (< 1 month) Prophylaxis Regimen: Total Risk Factor Score Risk Level Prophylaxis Regimen 0-1 Low Early ambulation 2 Moderate Order ONE of the following: *Sequential Compression Device (SCD) *Heparin 5000 units SQ BID 3-4 Higher Order ONE of the following medications: *Heparin 5000 units SQ TID *Enoxaparin/Lovenox 40 mg SQ daily (WT < 150 kg, CrCl > 30 mL/min) *Enoxaparin/Lovenox 30 mg SQ daily (WT < 150 kg, CrCl > 10-29 mL/min) *Enoxaparin/Lovenox 30 mg SQ BID (WT < 150 kg, CrCl > 30 mL/min) AND/OR *Sequential Compression Device (SCD) 5 or more Highest Order ONE of the following medications: *Heparin 5000 units SQ TID (Preferred with Epidurals) *Enoxaparin/Lovenox 40 mg SQ daily (WT < 150 kg, CrCl > 30 mL/min) *Enoxaparin/Lovenox 30 mg SQ daily (WT < 150 kg, CrCl > 10-29 mL/min) *Enoxaparin/Lovenox 30 mg SQ BID (WT < 150 kg, CrCl > 30 mL/min) AND *Sequential Compression Device (SCD) Assessment and Plan - Assessment (1) Encephalopathy Code(s): G93.40 - Encephalopathy, unspecified Status: Acute (2) Sepsis Code(s): A41.9 - Sepsis, unspecified organism Status: Acute (3) ESRD (end stage renal disease) on dialysis Code(s): N18.6 - End stage renal disease; Z99.2 - Dependence on renal dialysis Status: Acute (4) Afib Code(s): I48.91 - Unspecified atrial fibrillation Status: Acute - Plan A/P: 1. Encephalopathy: baseline largely unknown, sent to ER from SNF for AMS/Fever /Tachycardia, AMS likely compounded by underlying dementia and acute sepsis. CT Head w/ no acute findings, images reviewed. Neuro Checks. 2. Sepsis: Temp 101.1, HR 114, WBC 23, Source-unclear. S/p Blood Cultures, Vanc/Zosyn, follow up cultures, continue w/ IV Abx, Nephrology for Vanc dosing, CXR w/ no acute findings except pulmonary congestion, images reviewed. U/a pending. 3. ESRD on HD: //, s/p dialysis on per SNF, CXR w/ pulmonary congestion, will consult Nephrology to resume HD as scheduled. 4. A-fib: h/o Afib on Cardizem, initially tachycardic w/ HR 114, likely compounded by sepsis, resolved spontaneously, currently HR 70's, will resume home Cardizem, telemetry, monitor BP 5. DVT Prophylaxis: SCD/Teds 6. Social work for d/c planning as needed 7. Case discussed w/ ER physician at length, labs/records/imaging reviewed by me.
[2018-05-20] MEDS: Sod Chloride 0.9% Inj 1,000 ML IV.CONT SCH (21:46)
[2018-05-20] MEDS: Senna/Docusate Sodium 8.6/50 MG Tablet PO SCH (21:55)
[2018-05-20] MEDS: dilTIAZem 60 MG Tablet PO SCH (21:55)
[2018-05-21] MEDS: Sod Chloride 0.9% Inj 1,000 ML IV.CONT SCH (05:28)
[2018-05-21 08:01] LABS: Baso # (Auto) 0.1 th/mm3 (0.0-0.2); Baso % (Auto) 0.5 % (0.0-2.0); Eos % (Auto) 0.1 % (0.0-4.0); Hematocrit 28.6 % (39.0-51.0); Hemoglobin 8.9 gm/dL (13.0-17.0); Lymph # (Auto) 0.7 th/mm3 (1.0-4.8); Lymph % (Auto) 2.7 % (9.0-44.0); Mean Corpuscular Hemoglobin 23.7 pg (27.0-34.0); Mean Corpuscular Volume 76.5 fL (80.0-100.0); Mean Platelet Volume 8.6 fL (7.0-11.0); Mono # (Auto) 4.2 th/mm3 (0.0-0.9); Mono % (Auto) 16.8 % (0.0-8.0); Neut # (Auto) 19.9 th/mm3 (1.8-7.7); Neut % (Auto) 79.9 % (16.0-70.0); Platelet Count 182 th/mm3 (150-450); Red Blood Count 3.74 mil/mm3 (4.50-5.90); Red Cell Distribution Width 21.8 % (11.6-17.2); White Blood Count 24.9 th/mm3 (4.0-11.0)
[2018-05-21] MEDS: Senna/Docusate Sodium 8.6/50 MG Tablet PO SCH ×2 (08:20→20:54)
[2018-05-21] MEDS: dilTIAZem 60 MG Tablet PO SCH ×4 (08:20→20:54)
[2018-05-21 08:28] LABS: Alanine Aminotransferase 23 U/L (12-78); Albumin 2.7 g/dL (3.4-5.0); Anion Gap 15 meq/L (5-15); Aspartate Aminotransferase 27 U/L (15-37); Blood Urea Nitrogen 50 mg/dL (7-18); Calcium 9.3 mg/dL (8.5-10.1); Carbon Dioxide 21.2 meq/L (21.0-32.0); Chloride 98 meq/L (98-107); Glomerular Filtration Rate 7 mL/min (>89); Glucose,Random 144 mg/dL (74-106); Potassium 4.7 meq/L (3.5-5.1); Sodium 134 meq/L (136-145)
[2018-05-21 08:32] LABS: Alkaline Phosphatase 90 U/L (45-117); Troponin I 0.09 ng/mL (0.02-0.05)
[2018-05-21 09:12] LABS: Lymphocytes 3 % (9-44); Monocytes 7 % (0-8)
[2018-05-21 09:13] LABS: Ovalocytes 1+; Target Cells 1+; Toxic Vacuolation Present
[2018-05-21 09:14] LABS: Dimorphic RBC Present; Platelet Estimate Normal (Normal); Platelet Morphology Normal (Normal)
--- NOTE | 2018-05-21 11:11 | P.PN ---
Subjective Interval history: This is an 83-year-old male with a PMH of HTN, Hyperlipidemia, Dementia, CHF ( Echo 03/13/18 w/ EF 65-70%), ESRD on HD T//, s/p LUE AV Graft by Dr. Bustos 04/11/18, DM and h/o CVA who was sent to the ER from SNF due to AMS, fever and tachycardia. Pt unable to provide any history at this time. Per report, pt noted to have episode of fever, tachycardia and increased confusion today. Last HD on , no missed dialysis per SNF. On arrival, BP 136/64, HR 114, O2 sat 100% on 3L NC, Temp 101.1. WBC 23.4. INR 1.2. Creatinine 8.33. Troponin 0 0.09. CXR with right subclavian central venous catheter in place, no pneumothorax, mild pulmonary edema. CT Head no acute findings. S/p Vanc/ Zosyn in ER. 05/21: Patient with positive blood culture for Staph Aureus, in one bottle MRSA positive he is already on Vancomycin, consulted ID specialist, for Sepsis and Bacteremia, recommended to get Blood cultures from the line and from AVG, remove Perm Cath, no nausea, vomit or diarrhea. Physical Exam Vital signs: Vital Signs 05/20/18 18:02 05/20/18 19:25 05/20/18 20:43 Temperature 101.1 F H 99 F Pulse Rate 114 H 97 H 71 Respiratory Rate 25 H 22 20 Blood Pressure 136/64 136/64 140/65 Pulse Oximetry 100 100 05/20/18 21:10 05/21/18 00:00 05/21/18 08:00 Temperature 97.8 F 98.7 F 98.5 F Pulse Rate 71 95 H 118 H Respiratory Rate 22 22 16 Blood Pressure 131/63 134/63 131/64 Pulse Oximetry 100 95 90 L Intake & Output 05/20/18 05/21/18 05/21/18 18:59 06:59 18:59 Intake Total 1290 / 1290 Balance 1290 / 1290 Weight 68.039 kg 69.2 kg Intake: IV 600 / 600 Zosyn 4.5 GM Premix 4.5 gm In 100 / 100 100 ml @ 200 mls/hr IV.SIG ONCE ONE Rx#:[id number] NS Inj 500 ML @ 1000 mls/hr IV. 250 / 250 SIG BOLUS [facility] Rx#:[id number] Vancomycin Inj 1,000 MG In NS 250 / 250 Inj 250 ML @ 250 mls/hr IV.SIG ONCE ONE Rx#:[id number] Oral 690 / 690 Other: # Voids 0 Narrative: GENERAL: following commands today, oriented in person and place. SKIN: Focused skin assessment warm and dry. HEENT: PERRLA, EOMI. No scleral icterus or conjunctival pallor. No lid lag or facial droop. CARDIOVASCULAR: Regular rate and rhythm. RESPIRATORY: No obvious rhonchi or wheezing. Clear to auscultation. Breath sounds equal bilaterally. GASTROINTESTINAL: Abdomen soft, non-tender, nondistended. BS normal. MUSCULOSKELETAL: Extremities without clubbing, cyanosis, or edema. No obvious deformities. NEUROLOGICAL: Awake, alert, not answering questions. No focal neurologic deficits. Moving both upper and lower extremities spontaneously. PSYCHIATRIC: Appropriate mood and affect. Insight and judgment normal. Results - Labs CBC & Chem 7: 05/21/18 07:43 05/21/18 07:43 Laboratory Results - last 24 hr 05/20/18 05/20/18 05/20/18 18:31 18:31 18:31 WBC 23.4 H RBC 3.67 L Hgb 8.9 L Hct 28.0 L MCV 76.5 L MCH 24.4 L MCHC 31.9 L RDW 21.0 H Plt Count 193 MPV 7.6 Prelim Diff (Auto) Slide review pending Neut % (Auto) 90.9 H Lymph % (Auto) 2.4 L Mccreary % (Auto) 6.1 Eos % (Auto) 0.0 Baso % (Auto) 0.6 Neut # (Auto) 21.3 H Lymph # (Auto) 0.6 L Mccreary # (Auto) 1.4 H Eos # (Auto) 0.0 Baso # (Auto) 0.1 WBC Differential . Diff Scan Auto diff confirmed Seg Neuts % (Manual) Band Neuts % (Manual) Lymphocytes % (Manual) Monocytes % (Manual) Abs Neuts (Manual) Differential Comment . Toxic Vacuolation Platelet Estimate Normal Platelet Morphology Normal Dimorphic RBCs Target Cells Tear Drop Cells 1+ H Ovalocytes 2+ H Keratocytes PT 12.3 H INR 1.2 APTT 35.4 H Sodium 134 L Potassium 5.1 Chloride 97 L Carbon Dioxide 25.0 Anion Gap 12 BUN 42 H Creatinine 8.33 H Estimated GFR 7 L Random Glucose 157 H Lactic Acid Calcium 9.2 Total Bilirubin 0.5 AST 55 H ALT 28 Alkaline Phosphatase 105 Total Creatine Kinase 158 CK-MB (CK-2) Less than 1.0 Troponin I 0.09 H Total Protein 7.9 Albumin 3.0 L 05/20/18 05/21/18 05/21/18 18:31 00:26 07:43 WBC 24.9 H RBC 3.74 L Hgb 8.9 L Hct 28.6 L MCV 76.5 L MCH 23.7 L MCHC 31.0 L RDW 21.8 H Plt Count 182 MPV 8.6 Prelim Diff (Auto) Slide review pending Neut % (Auto) 79.9 H Lymph % (Auto) 2.7 L Mccreary % (Auto) 16.8 H Eos % (Auto) 0.1 Baso % (Auto) 0.5 Neut # (Auto) 19.9 H Lymph # (Auto) 0.7 L Mccreary # (Auto) 4.2 H Eos # (Auto) 0.0 Baso # (Auto) 0.1 WBC Differential Manual diff final Diff Scan Seg Neuts % (Manual) 77 H Band Neuts % (Manual) 13 H Lymphocytes % (Manual) 3 L Monocytes % (Manual) 7 Abs Neuts (Manual) 22.4 H Differential Comment . Toxic Vacuolation Present H Platelet Estimate Normal Platelet Morphology Normal Dimorphic RBCs Present H Target Cells 1+ H Tear Drop Cells Ovalocytes 1+ H Keratocytes Occ H PT INR APTT Sodium Potassium Chloride Carbon Dioxide Anion Gap BUN Creatinine Estimated GFR Random Glucose Lactic Acid 1.9 Calcium Total Bilirubin AST ALT Alkaline Phosphatase Total Creatine Kinase CK-MB (CK-2) Troponin I 0.10 H Total Protein Albumin 05/21/18 07:43 WBC RBC Hgb Hct MCV MCH MCHC RDW Plt Count MPV Prelim Diff (Auto) Neut % (Auto) Lymph % (Auto) Mccreary % (Auto) Eos % (Auto) Baso % (Auto) Neut # (Auto) Lymph # (Auto) Mccreary # (Auto) Eos # (Auto) Baso # (Auto) WBC Differential Diff Scan Seg Neuts % (Manual) Band Neuts % (Manual) Lymphocytes % (Manual) Monocytes % (Manual) Abs Neuts (Manual) Differential Comment Toxic Vacuolation Platelet Estimate Platelet Morphology Dimorphic RBCs Target Cells Tear Drop Cells Ovalocytes Keratocytes PT INR APTT Sodium 134 L Potassium 4.7 Chloride 98 Carbon Dioxide 21.2 Anion Gap 15 BUN 50 H Creatinine 9.33 H Estimated GFR 7 L Random Glucose 144 H Lactic Acid Calcium 9.3 Total Bilirubin 0.6 AST 27 ALT 23 Alkaline Phosphatase 90 Total Creatine Kinase CK-MB (CK-2) Troponin I 0.09 H Total Protein 7.0 D Albumin 2.7 L Microbiology 05/20/18 18:31 Blood - Peripheral Aerobic Blood Culture - Preliminary No growth in 1 day 05/20/18 18:31 Blood - Peripheral Anaerobic Blood Culture - Preliminary gram positive cocci 05/20/18 18:31 Blood - Peripheral Aerobic Blood Culture - Preliminary gram positive cocci 05/20/18 18:31 Blood - Peripheral Anaerobic Blood Culture - Preliminary gram positive cocci 05/20/18 18:51 Nasal Wash Influenza Types A,B Antigen - Final Negative for FLU A and B antigen Infection due to influenza A or B cannot be ruled out since the antigen present in the sample may be below the detection limit of the test. - Imaging Impressions Chest X-Ray 05/20/18 18:07 CONCLUSION: 1. Right subclavian central venous catheter in place. No evidence of pneumothorax. 2. Pulmonary vascular congestion/mild pulmonary edema. Head CT 05/20/18 18:07 CONCLUSION: 1. No acute findings in the brain. . - Procedures None Assessment and Plan - Assessment (1) Encephalopathy Code(s): G93.40 - Encephalopathy, unspecified Status: Acute (2) Sepsis Code(s): A41.9 - Sepsis, unspecified organism Status: Acute (3) ESRD (end stage renal disease) on dialysis Code(s): N18.6 - End stage renal disease; Z99.2 - Dependence on renal dialysis Status: Acute (4) Afib Code(s): I48.91 - Unspecified atrial fibrillation Status: Acute - Plan 1. Encephalopathy sent to ER from SNF due to AMS/Fever/tachycardia, probable Dementia, and Acute Sepsis, CT Head w/ no acute findings, images reviewed. Neuro Checks. 2. Sepsis/MRSA Bacteremia Temp 101.1, HR 114, WBC 23, Source-unclear. S/p Blood Cultures, Vanc/Zosyn, follow up cultures, continue w/ IV Abx, Nephrology for Vanc dosing, CXR w/ no acute findings except pulmonary congestion, 05/21: Patient with positive blood culture for Staph Aureus, in one bottle MRSA positive he is already on Vancomycin, consulted ID specialist, for Sepsis and Bacteremia, recommended to get Blood cultures from the line and from AVG, remove Perm Cath. 3. ESRD on HD: T//S, s/p dialysis on per SNF, CXR w/ pulmonary congestion, Nephrology following. 4. A-fib: h/o Afib on Cardizem, initially tachycardic w/ HR 114, likely compounded by sepsis, resolved spontaneously, currently HR 70's, will resume home Cardizem, telemetry, monitor BP 5. Hypertension/CHF by history/history of CVA/DM II/PAD DVT Prophylaxis: SCD/Teds Social work for d/c planning as needed Code Status: full code. Discussed Condition With: Patient and Nurse. Discharge Planning: once cleared by specialists.
[2018-05-21] MEDS ORDERED: Vancomycin Consult Pharmacy OTHER PRN (11:12)
[2018-05-21] MEDS ORDERED: Sod Chloride 0.9% Inj 1,000 ML OTHER PRN ×2 (11:18)
[2018-05-21] MEDS ORDERED: Albumin Human 25% Inj 100 ML IV.SIG PRN (11:18)
[2018-05-21] MEDS ORDERED: Acetaminophen 325 MG Tablet PO PRN (11:18)
[2018-05-21] MEDS ORDERED: Sod Chloride 0.9% Inj 1,000 ML IV.CONT PRN (11:18)
[2018-05-21] MEDS ORDERED: Heparin 10,000 UNITS/10 ML Vial (for IV use) OTHER PRN ×2 (11:18)
--- NOTE | 2018-05-21 11:35 | P.CONNP ---
History of Present Illness Service: Nephrology Consult date: 05/21/18 Requesting Physician: Sana Dickson Reason for Consult: Known ESRD on HD Primary Care Provider: UNKNOWN Chief Complaint: AMS History of Present Illness: The patient is an 83 yo AA male who is known to our services for ESRD on HD. He was brought to this facility by his NH for AMS, tachycardia, and fever. He has an elevated WBC and BCx preliminarily positive for GPC. Received Vanc and Zosyn on arrival. Has L AVG, but also has RIJ PermCath as we have just been able to cannulate AVG. Pt seen sitting up in chair in NAD. We have been consulted for HD management. [facility] - History History Provided By: Patient, Splunk Developer / EMT - Medical History Medical History: Medical History (Last Updated 05/21/18 @ 11:31 by KYLE Moreno) AVF (arteriovenous fistula) (Acute) Hemodialysis access, AV graft Arteriovenous fistula CHF (congestive heart failure) Dementia ESRD (end stage renal disease) on dialysis History of CVA (cerebrovascular accident) Hypertension Peripheral vascular disease Type 2 diabetes mellitus with other diabetic kidney complication - Family History Family History: Family History (Last Reviewed 05/21/18 @ 10:48 by Judy Cevallos PT) Other Family history of hypertension - Tobacco History Second Hand Smoke Exposure: No Smoking Status: Never smoker - Alcohol History How Often Do You Have a Drink Containing Alcohol: Never - Substance Use History Substance History: No History of Abuse, Unable to Obtain - Immunization History Tetanus Immunization: Unsure Medications and Allergies Active Medications: Active Medications Acetaminophen (Tylenol) 650 mg PO Q4H PRN PRN Reason: Temp > 100.4 Al Hydroxide/Mg Hydroxide (Milk Of Magnesia Liq) 30 ml PO Q12H PRN PRN Reason: Mild Constipation Bisacodyl (Dulcolax Supp) 10 mg RECTAL DAILY PRN PRN Reason: SEVERE CONSITIPATION Diltiazem HCl (Cardizem) 60 mg PO QID [facility] Last Admin: 05/21/18 08:20 Dose: 60 mg Cefepime HCl 1,000 mg/ Sodium (Chloride) 100 mls @ 200 mls/hr IV.SIG Q12H [facility] Last Admin: 05/21/18 08:20 Dose: 200 mls/hr Lactulose (Lactulose Liq) 30 ml PO DAILY PRN PRN Reason: SEVERE CONSITIPATION Ondansetron HCl (Zofran Inj) 4 mg IV.PUSH Q6H PRN PRN Reason: NAUSEA OR VOMITING Pharmacy Profile Note (Vancomycin Consult Pharmacy) 1 each OTHER UNSCH PRN PRN Reason: Pharmacy to dose Senna/Docusate Sodium (Sol-Colace) 1 tab PO BID [facility] Last Admin: 05/21/18 08:20 Dose: 1 tab Sennosides (Senokot) 17.2 mg PO Q12H PRN PRN Reason: Moderate Constipation Allergies Allergy/AdvReac Type Severity Reaction Status Date / Time No Known Allergies Allergy Unknown n/a Uncoded 04/11/18 11:44 Home Medications Medication Instructions Recorded Confirmed Type B complex-vitamin C-folic acid 1 tab PO DAILY 03/07/18 05/20/18 History [Padmini-Micah] albuterol sulfate [Ventolin HFA] 1 puff INHALATION QID PRN 03/07/18 05/20/18 History allopurinol 100 mg PO DAILY 03/07/18 05/20/18 History atorvastatin 10 mg PO DAILY 03/07/18 05/20/18 History ergocalciferol (vitamin D2) 50,000 unit PO QWEEK 03/07/18 05/20/18 History [Vitamin D2] ferrous sulfate 325 mg PO DAILY 03/07/18 05/20/18 History fluticasone 2 spray INTRANASAL DAILY 03/07/18 05/20/18 History Exam Vital signs: Vital Signs 05/20/18 18:02 05/20/18 19:25 05/20/18 20:43 Temperature 101.1 F H 99 F Pulse Rate 114 H 97 H 71 Respiratory Rate 25 H 22 20 Blood Pressure 136/64 136/64 140/65 Pulse Oximetry 100 100 05/20/18 21:10 05/21/18 00:00 05/21/18 08:00 Temperature 97.8 F 98.7 F 98.5 F Pulse Rate 71 95 H 118 H Respiratory Rate 22 22 16 Blood Pressure 131/63 134/63 131/64 Pulse Oximetry 100 95 90 L Intake & Output 05/20/18 05/21/18 05/21/18 18:59 06:59 18:59 Intake Total 1290 / 1290 Balance 1290 / 1290 Weight 68.039 kg 69.2 kg Intake: IV 600 / 600 Zosyn 4.5 GM Premix 4.5 gm In 100 / 100 100 ml @ 200 mls/hr IV.SIG ONCE ONE Rx#:[id number] NS Inj 500 ML @ 1000 mls/hr IV. 250 / 250 SIG BOLUS [place] Rx#:[id number] Vancomycin Inj 1,000 MG In NS 250 / 250 Inj 250 ML @ 250 mls/hr IV.SIG ONCE ONE Rx#:[id number] Oral 690 / 690 Other: # Voids 0 - Constitutional no acute distress - Routine HEENT Exam Head: Present: normocephalic - Routine Respiratory Exam Present: CTA bilaterally - Routine Cardiovascular Exam Present: RRR, S1, S2 - Routine Abdominal Exam Present: soft, distended - Routine Extremities Exam Present: edema (trace hips) - Routine Skin Exam Present: intact - Routine Neurological Exam Present: alert Results - Lab Results 05/21/18 07:43 05/21/18 07:43 Most recent lab results Calcium 9.3 mg/dL (8.5-10.1) 05/21/18 07:43 Assessment and Plan - Assessment (1) ESRD (end stage renal disease) on dialysis Code(s): N18.6 - End stage renal disease; Z99.2 - Dependence on renal dialysis Status: Chronic Plan: HD today as per regular TTS schedule. Check PO4, iPTH, Vit D. To cannulate LUE AVG. Abx (Vanco) ordered with HD Medications should be adjusted for ESRD. Avoid gadolinium. (2) Bacteremia Code(s): R78.81 - Bacteremia Status: Acute Plan: BCx +GPC. Likely PermCath infection. Orders placed for removal. Has AVG that is being cannulated. Vanco ordered with HD. D/C Cefepime. Trend WBC and await finalization fo BCx. Will order repeat BCx in 24-48h. (3) Hypertension Code(s): I10 - Essential (primary) hypertension Status: Chronic Plan: Continue home regimen (4) Diabetes mellitus Code(s): E11.9 - Type 2 diabetes mellitus without complications Status: Acute Plan: Mgmt as per primary (3) Hypertension Qualifiers: Hypertension type: essential hypertension Qualified Code(s): I10 - Essential (primary) hypertension
[2018-05-21] MEDS ORDERED: Sodium Chloride 0.9% 2 ML Flush PRN IV.FLUSH (12:21)
--- NOTE | 2018-05-21 14:25 | P.CONID ---
History of Present Illness Service: Infectious disease Consult date: 05/21/18 Requesting Physician: Sterling Quiros Reason for Consult: Evaluate patient with positive blood culture Primary Care Provider: UNKNOWN Chief Complaint: AMS History of Present Illness: Patient seen and examined. Records reviewed. Patient is an 83-year-old male, resides in the [facility], brought into the hospital for evaluation of lethargy, fever and tachycardia. Patient has ESRD, and gets hemodialysis. He currently has a permacath. He underwent placement of an AV graft last April 11. He gets hemodialysis every Wednesday, , and Wednesday. 2 blood cultures done in the emergency room are now reported as growing gram-positive cocci, and possible MRSA. Patient received Vanco and Zosyn in the emergency room. Patient at the time my exam is currently undergoing hemodialysis. They are having problem using the AV graft in the left upper extremity, and actively using both permacath and AV graft for his current hemodialysis. Highest temperature has been 101. His WBC is elevated at 24,000. There is no mention of any other problem in the fdc. There is been no cough or congestion, nausea or vomiting, abdominal pain, or diarrhea. Infectious disease consultation has been requested to assist with evaluation and treatment of his bacteremia. 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 - Medical History Medical History: Medical History (Last Reviewed 05/21/18 @ 14:20 by Jade Morton MD) AVF (arteriovenous fistula) (Acute) Hemodialysis access, AV graft Arteriovenous fistula CHF (congestive heart failure) Dementia ESRD (end stage renal disease) on dialysis History of CVA (cerebrovascular accident) Hypertension Peripheral vascular disease Type 2 diabetes mellitus with other diabetic kidney complication - Family History Family History: Family History (Last Reviewed 05/21/18 @ 14:20 by Jade Morton MD) Other Family history of hypertension - Tobacco History Second Hand Smoke Exposure: No Smoking Status: Never smoker - Alcohol History How Often Do You Have a Drink Containing Alcohol: Never - Substance Use History Substance History: No History of Abuse, Unable to Obtain - Immunization History Tetanus Immunization: Unsure Medications and Allergies Active Medications: Active Medications Acetaminophen (Tylenol) 650 mg PO Q4H PRN PRN Reason: Temp > 100.4 Acetaminophen (Tylenol) 650 mg PO UNSCH PRN PRN Reason: SEE LABEL COMMENTS Al Hydroxide/Mg Hydroxide (Milk Of Magnesia Liq) 30 ml PO Q12H PRN PRN Reason: Mild Constipation Bisacodyl (Dulcolax Supp) 10 mg RECTAL DAILY PRN PRN Reason: SEVERE CONSITIPATION Clonidine HCl (Catapres) 0.1 mg PO UNSCH PRN PRN Reason: SEE LABEL COMMENTS Diltiazem HCl (Cardizem) 60 mg PO QID [facility] Last Admin: 05/21/18 12:48 Dose: Not Given Diphenhydramine HCl (Benadryl) 25 mg PO UNSCH PRN PRN Reason: SEE LABEL COMMENTS Gelatin (Gelfoam 12 Mm/7 Mm Topical) 1 foam TOPICAL PRN PRN PRN Reason: help stop bleeding from site Gentamicin Sulfate (Gentamicin Inj) 20 mg OTHER WITH DIALYSIS PRN PRN Reason: Dwell Gentamycin Lock Heparin Sodium (Porcine) (Heparin Inj) 8,000 units OTHER WITH DIALYSIS PRN PRN Reason: for machine prime Heparin Sodium (Porcine) (Heparin Inj) 1,000 units OTHER WITH DIALYSIS PRN PRN Reason: Dwell Heparin to Fill Catheter Sodium Chloride (Ns Inj) 1,000 mls @ 0 mls/hr OTHER .Q0M PRN PRN Reason: for prime and rinse back Sodium Chloride (Ns Inj) 1,000 mls @ 200 mls/hr OTHER .Q5H PRN PRN Reason: for dialyzer flush PRN Sodium Chloride (Ns Inj) 1,000 mls @ 0 mls/hr IV.CONT .Q0M PRN PRN Reason: hypotension / volume replace Vancomycin HCl 1,000 mg/ (Sodium Chloride) 250 mls @ 250 mls/hr IV.SIG WITH DIALYSIS [place] Albumin Human (Flexbumin 25% Inj) 100 mls @ 60 mls/hr IV.SIG WITH DIALYSIS PRN PRN Reason: hypotension / volume replace Lactulose (Lactulose Liq) 30 ml PO DAILY PRN PRN Reason: SEVERE CONSITIPATION Mannitol (Mannitol Inj) 12.5 gm IV.PUSH UNSCH PRN PRN Reason: hypotension / volume replace Nitroglycerin (Nitrostat Sl) 0.4 mg SL Q5M PRN PRN Reason: CHEST PAIN Ondansetron HCl (Zofran Inj) 4 mg IV.PUSH Q6H PRN PRN Reason: NAUSEA OR VOMITING Ondansetron HCl (Zofran Inj) 4 mg IV.PUSH UNSCH PRN PRN Reason: NAUSEA OR VOMITING Senna/Docusate Sodium (Sol-Colace) 1 tab PO BID [facility] Last Admin: 05/21/18 08:20 Dose: 1 tab Sennosides (Senokot) 17.2 mg PO Q12H PRN PRN Reason: Moderate Constipation Sodium Chloride (Ns Flush) 5 ml IV.FLUSH PRN PRN PRN Reason: flush each lumen during HD Sodium Chloride (Ns Flush) 2 ml IV.FLUSH BID [place] Sodium Chloride (Ns Flush) 2 ml IV.FLUSH PRN PRN PRN Reason: FLUSH AFTER USING IV ACCESS Allergies Allergy/AdvReac Type Severity Reaction Status Date / Time No Known Allergies Allergy Unknown n/a Uncoded 04/11/18 11:44 Home Medications Medication Instructions Recorded Confirmed Type B complex-vitamin C-folic acid 1 tab PO DAILY 03/07/18 05/20/18 History [Padmini-Micah] albuterol sulfate [Ventolin HFA] 1 puff INHALATION QID PRN 03/07/18 05/20/18 History allopurinol 100 mg PO DAILY 03/07/18 05/20/18 History atorvastatin 10 mg PO DAILY 03/07/18 05/20/18 History ergocalciferol (vitamin D2) 50,000 unit PO QWEEK 03/07/18 05/20/18 History [Vitamin D2] ferrous sulfate 325 mg PO DAILY 03/07/18 05/20/18 History fluticasone 2 spray INTRANASAL DAILY 03/07/18 05/20/18 History Exam Vital signs: Vital Signs 05/20/18 18:02 05/20/18 19:25 05/20/18 20:43 Temperature 101.1 F H 99 F Pulse Rate 114 H 97 H 71 Respiratory Rate 25 H 22 20 Blood Pressure 136/64 136/64 140/65 Pulse Oximetry 100 100 05/20/18 21:10 05/21/18 00:00 05/21/18 08:00 Temperature 97.8 F 98.7 F 98.5 F Pulse Rate 71 95 H 118 H Respiratory Rate 22 22 16 Blood Pressure 131/63 134/63 131/64 Pulse Oximetry 100 95 90 L 05/21/18 12:00 Temperature 97.7 F Pulse Rate 92 H Respiratory Rate 16 Blood Pressure 117/58 L Pulse Oximetry 97 Intake & Output 05/20/18 05/21/18 05/21/18 18:59 06:59 18:59 Intake Total 1290 / 1290 100 / 100 Balance 1290 / 1290 100 / 100 Weight 68.039 kg 69.2 kg Intake: IV 600 / 600 100 / 100 Maxipime Inj 1,000 MG In NS Inj 100 / 100 100 ML @ 200 mls/hr IV.SIG Q12H [place] Rx#:[id number] Zosyn 4.5 GM Premix 4.5 gm In 100 / 100 100 ml @ 200 mls/hr IV.SIG ONCE ONE Rx#:[id number] NS Inj 500 ML @ 1000 mls/hr IV. 250 / 250 SIG BOLUS [place] Rx#:[id number] Vancomycin Inj 1,000 MG In NS 250 / 250 Inj 250 ML @ 250 mls/hr IV.SIG ONCE ONE Rx#:[id number] Oral 690 / 690 Other: # Voids 0 Narrative: Physical examination GENERAL: Patient is a well-nourished, well-developed male, awake and alert, not in respiratory distress. He is confused SKIN: Warm and dry. No generalized rash, no ecchymoses and no evidence of embolic lesions. HEAD: Atraumatic. Normocephalic. No temporal wasting, or tenderness. EYES: [place] conjunctiva. No petechia or hemorrhage. Pupils equal, round and reactive to light. Extraocular movements full and intact. No scleral icterus. No injection or drainage. EARS, NOSE AND THROAT: Nose without bleeding or purulent nasal discharge. No sinus tenderness. Mucous membranes pink and moist. No oral lesions noted. No exudate. No oral thrush. NECK: Trachea midline. Supple and not tender, no meningeal signs CARDIOVASCULAR: Regular rate and rhythm. No murmurs, rubs or gallops heard. Permacath R upper chest site dry, no discharge, no redness, no tenderness at tunnel, no induration, no swelling. RESPIRATORY: Clear to auscultation. Breath sounds equal bilaterally. No rales , wheezing or rhonchi ABDOMEN: Soft, non-tender, nondistended. Bowel sounds present and normoactive. No guarding. No rebound. No organomegaly. EXTREMITIES: No clubbing, cyanosis, or edema. No joint effusion, has good ROM. No calf tenderness. Well perfused and warm. LUE AVG no redness or induration or tenderness NEUROLOGICAL: Awake and alert. No facial asymmetry. Moves all extremities PSYCHIATRIC: calm and cooperative. LINE: No evidence of infection Results - Labs CBC & Chem 7: 05/21/18 07:43 05/21/18 07:43 Labs: Laboratory Results - last 24 hr 05/20/18 05/20/18 05/20/18 18:31 18:31 18:31 WBC 23.4 H RBC 3.67 L Hgb 8.9 L Hct 28.0 L MCV 76.5 L MCH 24.4 L MCHC 31.9 L RDW 21.0 H Plt Count 193 MPV 7.6 Prelim Diff (Auto) Slide review pending Neut % (Auto) 90.9 H Lymph % (Auto) 2.4 L [place] % (Auto) 6.1 Eos % (Auto) 0.0 Baso % (Auto) 0.6 Neut # (Auto) 21.3 H Lymph # (Auto) 0.6 L [place] # (Auto) 1.4 H Eos # (Auto) 0.0 Baso # (Auto) 0.1 WBC Differential . Diff Scan Auto diff confirmed Seg Neuts % (Manual) Band Neuts % (Manual) Lymphocytes % (Manual) Monocytes % (Manual) Abs Neuts (Manual) Differential Comment . Toxic Vacuolation Platelet Estimate Normal Platelet Morphology Normal Dimorphic RBCs Target Cells Tear Drop Cells 1+ H Ovalocytes 2+ H Keratocytes PT 12.3 H INR 1.2 APTT 35.4 H Sodium 134 L Potassium 5.1 Chloride 97 L Carbon Dioxide 25.0 Anion Gap 12 BUN 42 H Creatinine 8.33 H Estimated GFR 7 L Random Glucose 157 H Lactic Acid Calcium 9.2 Total Bilirubin 0.5 AST 55 H ALT 28 Alkaline Phosphatase 105 Total Creatine Kinase 158 CK-MB (CK-2) Less than 1.0 Troponin I 0.09 H Total Protein 7.9 Albumin 3.0 L 05/20/1818 18 18:31 00:26 07:43 WBC 24.9 H RBC 3.74 L Hgb 8.9 L Hct 28.6 L MCV 76.5 L MCH 23.7 L MCHC 31.0 L RDW 21.8 H Plt Count 182 MPV 8.6 Prelim Diff (Auto) Slide review pending Neut % (Auto) 79.9 H Lymph % (Auto) 2.7 L [place] % (Auto) 16.8 H Eos % (Auto) 0.1 Baso % (Auto) 0.5 Neut # (Auto) 19.9 H Lymph # (Auto) 0.7 L [place] # (Auto) 4.2 H Eos # (Auto) 0.0 Baso # (Auto) 0.1 WBC Differential Manual diff final Diff Scan Seg Neuts % (Manual) 77 H Band Neuts % (Manual) 13 H Lymphocytes % (Manual) 3 L Monocytes % (Manual) 7 Abs Neuts (Manual) 22.4 H Differential Comment . Toxic Vacuolation Present H Platelet Estimate Normal Platelet Morphology Normal Dimorphic RBCs Present H Target Cells 1+ H Tear Drop Cells Ovalocytes 1+ H Keratocytes Occ H PT INR APTT Sodium Potassium Chloride Carbon Dioxide Anion Gap BUN Creatinine Estimated GFR Random Glucose Lactic Acid 1.9 Calcium Total Bilirubin AST ALT Alkaline Phosphatase Total Creatine Kinase CK-MB (CK-2) Troponin I 0.10 H Total Protein Albumin 05/21/18 07:43 WBC RBC Hgb Hct MCV MCH MCHC RDW Plt Count MPV Prelim Diff (Auto) Neut % (Auto) Lymph % (Auto) [place] % (Auto) Eos % (Auto) Baso % (Auto) Neut # (Auto) Lymph # (Auto) [place] # (Auto) Eos # (Auto) Baso # (Auto) WBC Differential Diff Scan Seg Neuts % (Manual) Band Neuts % (Manual) Lymphocytes % (Manual) Monocytes % (Manual) Abs Neuts (Manual) Differential Comment Toxic Vacuolation Platelet Estimate Platelet Morphology Dimorphic RBCs Target Cells Tear Drop Cells Ovalocytes Keratocytes PT INR APTT Sodium 134 L Potassium 4.7 Chloride 98 Carbon Dioxide 21.2 Anion Gap 15 BUN 50 H Creatinine 9.33 H Estimated GFR 7 L Random Glucose 144 H Lactic Acid Calcium 9.3 Total Bilirubin 0.6 AST 27 ALT 23 Alkaline Phosphatase 90 Total Creatine Kinase CK-MB (CK-2) Troponin I 0.09 H Total Protein 7.0 D Albumin 2.7 L - Imaging Impressions Chest X-Ray 05/20/18 18:07 CONCLUSION: 1. Right subclavian central venous catheter in place. No evidence of pneumothorax. 2. Pulmonary vascular congestion/mild pulmonary edema. Head CT 05/20/18 18:07 CONCLUSION: 1. No acute findings in the brain. . Assessment and Plan - Plan Impression Sepsis, possible MRSA - source, possibly the HD cath, ?thrombus in clot, AVG looks ok clinically Encephalopathy due to sepsis ESRD, on HD TTHSA Fevers and leukocytosis due to sepsis Recommendation Get BC from line and from AVG - spoke withn HD RN, to draw today with HD Agree with IV vanco US AVG to look for thrombus Follow C/S May need echo remove permacath Follow temps MOnitor progress I will determine course of treatment once workup is completed I will follow along with you Thank you for this consultation
[2018-05-21] MEDS: Vancomycin Inj 1,000 MG in Sodium Chlor 0.9% Inj 250 ML IV.SIG SCH (15:25)
--- NOTE | 2018-05-21 15:54 | ECG ---
Date Performed: 05/20/2018 Time Performed: 19:41:19 PTAGE: 83 years EKG: ATRIAL FLUTTER/TACHYCARDIA INDETERMINATE AXIS MODERATE INTRAVENTRICULAR CONDUCTION DELAY AB NORMAL ECG PREVIOUS TRACING : 03/17/2018 09.55 Compared to previous tracing, ventricular response to atria l flutter is lower, Otherwise no significant serial change DOCTOR: Rafal Hoang Interpretating Date/Time 05/21/2018 15:53:41
[2018-05-21 19:34] LABS: Hepatitits B Surface Antigen Nonreactive (Nonreactive)
[2018-05-21 19:52] LABS: Hepatitis A IgM Antibody Nonreactive (Nonreactive)
[2018-05-21] MEDS: Sodium Chloride 0.9% 2 ML Flush BID IV.FLUSH SCH (20:54)
--- NOTE | 2018-05-21 21:31 | US ---
EXAM DATE: 05/21/2018 9:25 PM EST AGE/SEX: 83 years / Male INDICATIONS: Post graft swelling. CLINICAL DATA: This is the patient's initial encounter. Patient reports that signs and symptoms have been present for 1 day and indicates a pain score of 0/10. MEDICAL/SURGICAL HISTORY: Congestive heart failure. Hypertension. Diabetes mellitus type II. Dementia. Arteriovenous fistula. Hemodialysis. CVA. Peripheral vascular disease. . AV graft. COMPARISON: No prior exams available for comparison. FINDINGS: Real-time ultrasound examination targeted to the AV fistula demonstrates intact flow within the fistu la. No adjacent fluid collections seen. CONCLUSION: 1. No focal fluid collections adjacent to the patent AV fistula. Electronically signed by: Blayne May MD 05/21/2018 9:30 PM EST
[2018-05-22 07:22] LABS: Baso # (Auto) 0.1 th/mm3 (0.0-0.2); Baso % (Auto) 0.7 % (0.0-2.0); Eos % (Auto) 0.2 % (0.0-4.0); Hematocrit 30.1 % (39.0-51.0); Hemoglobin 9.4 gm/dL (13.0-17.0); Lymph # (Auto) 0.6 th/mm3 (1.0-4.8); Lymph % (Auto) 3.3 % (9.0-44.0); Mean Corpuscular HGB Conc 31.2 % (32.0-36.0); Mean Corpuscular Hemoglobin 23.6 pg (27.0-34.0); Mean Corpuscular Volume 75.6 fL (80.0-100.0); Mean Platelet Volume 8.4 fL (7.0-11.0); Mono # (Auto) 4.8 th/mm3 (0.0-0.9); Mono % (Auto) 24.4 % (0.0-8.0); Neut % (Auto) 71.4 % (16.0-70.0); Platelet Count 193 th/mm3 (150-450); Red Blood Count 3.98 mil/mm3 (4.50-5.90); Red Cell Distribution Width 21.2 % (11.6-17.2); White Blood Count 19.7 th/mm3 (4.0-11.0)
[2018-05-22 07:42] LABS: Albumin 2.8 g/dL (3.4-5.0); Calcium 9.5 mg/dL (8.5-10.1); Phosphorus 4.1 mg/dL (2.5-4.9); Potassium 4.1 meq/L (3.5-5.1)
[2018-05-22] MEDS: Senna/Docusate Sodium 8.6/50 MG Tablet PO SCH ×2 (09:04→20:41)
[2018-05-22] MEDS: dilTIAZem 60 MG Tablet PO SCH ×4 (09:04→20:41)
[2018-05-22] MEDS: Sodium Chloride 0.9% 2 ML Flush BID IV.FLUSH SCH ×2 (09:04→20:42)
--- NOTE | 2018-05-22 09:13 | P.PNID ---
Subjective Remarks: Patient is an 83-year-old male, [place] [facility], brought into the hospital for evaluation of lethargy, fever and tachycardia. Patient has ESRD, and gets hemodialysis. He currently has a permacath. He underwent placement of an AV graft last April 11. He gets hemodialysis every Wednesday, , and Wednesday. 2 blood cultures done in the emergency room are now reported as growing gram-positive cocci, and possible MRSA. Patient received Vanco and Zosyn in the emergency room. Patient at the time my exam is currently undergoing hemodialysis. They are having problem using the AV graft in the left upper extremity, and actively using both permacath and AV graft for his current hemodialysis. Highest temperature has been 101. His WBC is elevated at 24,000. There is no mention of any other problem in the detention. There is been no cough or congestion, nausea or vomiting, abdominal pain, or diarrhea. Infectious disease consultation has been requested to assist with evaluation and treatment of his bacteremia. Notes reviewed D/W RN Tay ok Permacath removal has been ordered No new (+) BC WBC a little better, down to 19K Antibiotics: Vancomycin with HD Lines: Permacath Past Medical History: AVF (arteriovenous fistula) (Acute) Hemodialysis access, AV graft Arteriovenous fistula CHF (congestive heart failure) Dementia ESRD (end stage renal disease) on dialysis History of CVA (cerebrovascular accident) Hypertension Peripheral vascular disease Type 2 diabetes mellitus with other diabetic kidney complication Allergies/Adverse Reactions: Allergies No Known Allergies Allergy (Unknown, Uncoded 04/11/18 11:44) n/a Objective Vital Signs 05/21/18 12:00 05/21/18 20:00 05/22/18 00:00 Temperature 97.7 F 97.6 F 97.9 F Pulse Rate 92 H 86 105 H Respiratory Rate 16 17 16 Blood Pressure 117/58 L 130/61 125/60 Pulse Oximetry 97 95 80 L 05/22/18 01:16 05/22/18 04:00 05/22/18 07:37 Temperature 98.7 F Pulse Rate 100 H Respiratory Rate 16 Blood Pressure 134/63 Pulse Oximetry 92 L 92 L 96 05/22/18 08:00 Temperature 98.4 F Pulse Rate 95 H Respiratory Rate 16 Blood Pressure 108/54 L Pulse Oximetry 100 Intake & Output 05/21/18 05/22/18 05/22/18 18:59 06:59 18:59 Intake Total 1350 / 1350 200 / 200 Output Total 3000 / 3000 Balance -1650 / -1650 200 / 200 Weight 69.3 kg Intake: IV 350 / 350 Maxipime Inj 1,000 MG In NS Inj 100 / 100 100 ML @ 200 mls/hr IV.SIG Q12H [place] Rx#:[id number] Vancomycin Inj 1,000 MG In NS 250 / 250 Inj 250 ML @ 250 mls/hr IV.SIG WITH DIALYSIS [place] Rx#:[id number] Oral 1000 / 1000 200 / 200 Output: Urine 0 / 0 Hemodialysis Amount 3000 / 3000 Other: # Bowel Movements 0 05/21/18 14:45 Blood - Other Aerobic Blood Culture - Pending 05/21/18 14:45 Blood - Other Anaerobic Blood Culture - Pending 05/21/18 14:45 Blood - Other Aerobic Blood Culture - Pending 05/21/18 14:45 Blood - Other Anaerobic Blood Culture - Pending 05/20/18 18:31 Blood - Peripheral Aerobic Blood Culture - Preliminary gram positive cocci 05/20/18 18:31 Blood - Peripheral Anaerobic Blood Culture - Preliminary S. aureus MRSA 05/20/18 18:31 Blood - Peripheral Aerobic Blood Culture - Preliminary gram positive cocci 05/20/18 18:31 Blood - Peripheral Anaerobic Blood Culture - Preliminary gram positive cocci 05/20/18 18:51 Nasal Wash Influenza Types A,B Antigen - Final Negative for FLU A and B antigen Infection due to influenza A or B cannot be ruled out since the antigen present in the sample may be below the detection limit of the test. Lab - Hematology Results 05/20/18 05/21/18 05/22/18 18:31 07:43 06:28 WBC 23.4 H 24.9 H 19.7 H RBC 3.67 L 3.74 L 3.98 L Hgb 8.9 L 8.9 L 9.4 L Hct 28.0 L 28.6 L 30.1 L MCV 76.5 L 76.5 L 75.6 L MCH 24.4 L 23.7 L 23.6 L MCHC 31.9 L 31.0 L 31.2 L RDW 21.0 H 21.8 H 21.2 H Plt Count 193 182 193 MPV 7.6 8.6 8.4 Prelim Diff (Auto) Slide review pending Slide review pending Slide review pending Neut % (Auto) 90.9 H 79.9 H 71.4 H Lymph % (Auto) 2.4 L 2.7 L 3.3 L [place] % (Auto) 6.1 16.8 H 24.4 H Eos % (Auto) 0.0 0.1 0.2 Baso % (Auto) 0.6 0.5 0.7 Neut # (Auto) 21.3 H 19.9 H 14.0 H Lymph # (Auto) 0.6 L 0.7 L 0.6 L [place] # (Auto) 1.4 H 4.2 H 4.8 H Eos # (Auto) 0.0 0.0 0.0 Baso # (Auto) 0.1 0.1 0.1 WBC Differential . Manual diff final Diff Scan Auto diff confirmed Seg Neuts % (Manual) 77 H Band Neuts % (Manual) 13 H Lymphocytes % (Manual) 3 L Monocytes % (Manual) 7 Abs Neuts (Manual) 22.4 H Differential Comment . . . Toxic Vacuolation Present H Platelet Estimate Normal Normal Platelet Morphology Normal Normal Dimorphic RBCs Present H Target Cells 1+ H Tear Drop Cells 1+ H Ovalocytes 2+ H 1+ H Keratocytes Occ H Lab - Chemistry Results 05/20/18 05/20/18 05/21/18 18:31 18:31 00:26 Sodium 134 L Potassium 5.1 Chloride 97 L Carbon Dioxide 25.0 Anion Gap 12 BUN 42 H Creatinine 8.33 H Estimated GFR 7 L Random Glucose 157 H Lactic Acid 1.9 Calcium 9.2 Phosphorus Total Bilirubin 0.5 AST 55 H ALT 28 Alkaline Phosphatase 105 Total Creatine Kinase 158 CK-MB (CK-2) Less than 1.0 Troponin I 0.09 H 0.10 H Total Protein 7.9 Albumin 3.0 L Vitamin D 25-Hydroxy PTH Intact 05/21/18 05/22/18 05/22/18 07:43 06:28 06:28 Sodium 134 L 139 Potassium 4.7 4.1 Chloride 98 99 Carbon Dioxide 21.2 29.0 Anion Gap 15 11 BUN 50 H 40 H Creatinine 9.33 H 6.60 H Estimated GFR 7 L 10 L Random Glucose 144 H 164 H Lactic Acid Calcium 9.3 9.5 Phosphorus 4.1 Total Bilirubin 0.6 AST 27 ALT 23 Alkaline Phosphatase 90 Total Creatine Kinase CK-MB (CK-2) Troponin I 0.09 H Total Protein 7.0 D Albumin 2.7 L 2.8 L Vitamin D 25-Hydroxy 53.3 PTH Intact 704.4 H Imaging: ITS Impressions Chest X-Ray 05/20/18 18:07 CONCLUSION: 1. Right subclavian central venous catheter in place. No evidence of pneumothorax. 2. Pulmonary vascular congestion/mild pulmonary edema. Head CT 05/20/18 18:07 CONCLUSION: 1. No acute findings in the brain. . Upper Extremity Ultrasound 05/21/18 00:00 CONCLUSION: 1. No focal fluid collections adjacent to the patent AV fistula. Physical Exam: GENERAL: awake and alert, not in respiratory distress. He is confused SKIN: Warm and dry. No generalized rash, no ecchymoses and no evidence of embolic lesions. HEAD: Atraumatic. Normocephalic. No temporal wasting, or tenderness. EYES: [place] conjunctiva. No petechia or hemorrhage. Pupils equal, round and reactive to light. Extraocular movements full and intact. No scleral icterus. No injection or drainage. EARS, NOSE AND THROAT: Nose without bleeding or purulent nasal discharge. No sinus tenderness. Mucous membranes pink and moist. No oral lesions noted. No exudate. No oral thrush. NECK: Trachea midline. Supple and not tender, no meningeal signs CARDIOVASCULAR: Regular rate and rhythm. No murmurs, rubs or gallops heard. Permacath R upper chest site dry, no discharge, no redness, no tenderness at tunnel, no induration, no swelling. RESPIRATORY: Clear to auscultation. Breath sounds equal bilaterally. No rales , wheezing or rhonchi ABDOMEN: Soft, non-tender, nondistended. Bowel sounds present and normoactive. No guarding. No rebound. No organomegaly. EXTREMITIES: No clubbing, cyanosis, or edema. No joint effusion, has good ROM. No calf tenderness. Well perfused and warm. LUE AVG no redness or induration or tenderness NEUROLOGICAL: Awake and alert. No facial asymmetry. Moves all extremities PSYCHIATRIC: calm and cooperative. LINE: No evidence of infection Assessment and Plan - Plan Impression Sepsis, possible MRSA - source, possibly the HD cath - no thrombus in AVG Encephalopathy due to sepsis ESRD, on HD TTHSA Fevers and leukocytosis due to sepsis Recommendation Follow C/S Continue IV vanco with HD For permacath removal - possibly tomorrow Follow temps Monitor progress I will determine course of treatment once workup is completed D/W MARLA
[2018-05-22 09:17] LABS: Eosinophils 1 % (0-4); Lymphocytes 3 % (9-44); Monocytes 1 % (0-8)
[2018-05-22 09:18] LABS: Ovalocytes 1+; Platelet Estimate Normal (Normal); Platelet Morphology Normal (Normal); Target Cells 2+
--- NOTE | 2018-05-22 09:50 | P.PN ---
Subjective Interval history: This is an 83-year-old male with a PMH of HTN, Hyperlipidemia, Dementia, CHF ( Echo 03/13/18 w/ EF 65-70%), ESRD on HD T//, s/p LUE AV Graft by Dr. Bustos 04/11/18, DM and h/o CVA who was sent to the ER from SNF due to AMS, fever and tachycardia. Pt unable to provide any history at this time. Per report, pt noted to have episode of fever, tachycardia and increased confusion today. Last HD on , no missed dialysis per SNF. On arrival, BP 136/64, HR 114, O2 sat 100% on 3L NC, Temp 101.1. WBC 23.4. INR 1.2. Creatinine 8.33. Troponin 0 0.09. CXR with right subclavian central venous catheter in place, no pneumothorax, mild pulmonary edema. CT Head no acute findings. S/p Vanc/ Zosyn in ER. 05/21: Patient with positive blood culture for Staph Aureus, in one bottle MRSA positive he is already on Vancomycin, consulted ID specialist, for Sepsis and Bacteremia, recommended to get Blood cultures from the line and from AVG, remove Perm Cath. 05/22: Seen in his bedroom, discussed with Nurse, no nausea, Vomit or diarrhea, ID following, continue IV Vancomycin. Echocardiogram. Physical Exam Vital signs: Vital Signs 05/21/18 12:00 05/21/18 20:00 05/22/18 00:00 Temperature 97.7 F 97.6 F 97.9 F Pulse Rate 92 H 86 105 H Respiratory Rate 16 17 16 Blood Pressure 117/58 L 130/61 125/60 Pulse Oximetry 97 95 80 L 05/22/18 01:16 05/22/18 04:00 05/22/18 07:37 Temperature 98.7 F Pulse Rate 100 H Respiratory Rate 16 Blood Pressure 134/63 Pulse Oximetry 92 L 92 L 96 05/22/18 08:00 Temperature 98.4 F Pulse Rate 95 H Respiratory Rate 16 Blood Pressure 108/54 L Pulse Oximetry 100 Intake & Output 05/21/18 05/22/18 05/22/18 18:59 06:59 18:59 Intake Total 1350 / 1350 200 / 200 Output Total 3000 / 3000 Balance -1650 / -1650 200 / 200 Weight 69.3 kg Intake: IV 350 / 350 Maxipime Inj 1,000 MG In NS Inj 100 / 100 100 ML @ 200 mls/hr IV.SIG Q12H [facility] Rx#:[id number] Vancomycin Inj 1,000 MG In NS 250 / 250 Inj 250 ML @ 250 mls/hr IV.SIG WITH DIALYSIS [facility] Rx#:[id number] Oral 1000 / 1000 200 / 200 Output: Urine 0 / 0 Hemodialysis Amount 3000 / 3000 Other: # Bowel Movements 0 Narrative: GENERAL: following commands today, oriented in person and place. SKIN: Focused skin assessment warm and dry. HEENT: PERRLA, EOMI. No scleral icterus or conjunctival pallor. No lid lag or facial droop. CARDIOVASCULAR: Regular rate and rhythm. RESPIRATORY: No obvious rhonchi or wheezing. Clear to auscultation. Breath sounds equal bilaterally. GASTROINTESTINAL: Abdomen soft, non-tender, nondistended. BS normal. MUSCULOSKELETAL: Extremities without clubbing, cyanosis, or edema. No obvious deformities. NEUROLOGICAL: Awake, alert, not answering questions. No focal neurologic deficits. Moving both upper and lower extremities spontaneously. PSYCHIATRIC: Appropriate mood and affect. Insight and judgment normal. Results - Labs CBC & Chem 7: 05/27/18 07:05 05/25/18 15:58 Laboratory Results - last 24 hr 05/21/18 05/22/18 05/22/18 15:10 06:28 06:28 WBC 19.7 H RBC 3.98 L Hgb 9.4 L Hct 30.1 L MCV 75.6 L MCH 23.6 L MCHC 31.2 L RDW 21.2 H Plt Count 193 MPV 8.4 Prelim Diff (Auto) Slide review pending Neut % (Auto) 71.4 H Lymph % (Auto) 3.3 L [place] % (Auto) 24.4 H Eos % (Auto) 0.2 Baso % (Auto) 0.7 Neut # (Auto) 14.0 H Lymph # (Auto) 0.6 L [place] # (Auto) 4.8 H Eos # (Auto) 0.0 Baso # (Auto) 0.1 WBC Differential Manual diff final Seg Neuts % (Manual) 78 H Band Neuts % (Manual) 16 H Lymphocytes % (Manual) 3 L Monocytes % (Manual) 1 Eosinophils % (Manual) 1 Basophils % (Manual) 1 Abs Neuts (Manual) 18.5 H Differential Comment . Platelet Estimate Normal Platelet Morphology Normal Target Cells 2+ H Ovalocytes 1+ H Keratocytes Occ H Sodium 139 Potassium 4.1 Chloride 99 Carbon Dioxide 29.0 Anion Gap 11 BUN 40 H Creatinine 6.60 H Estimated GFR 10 L Random Glucose 164 H Calcium 9.5 Phosphorus 4.1 Albumin 2.8 L Vitamin D 25-Hydroxy 53.3 PTH Intact Hepatitis A IgM Ab Nonreactive Hep Bs Antigen Nonreactive Hep B Core IgM Ab Nonreactive Hep C IgG Ab Nonreactive 05/22/18 06:28 WBC RBC Hgb Hct MCV MCH MCHC RDW Plt Count MPV Prelim Diff (Auto) Neut % (Auto) Lymph % (Auto) [place] % (Auto) Eos % (Auto) Baso % (Auto) Neut # (Auto) Lymph # (Auto) [place] # (Auto) Eos # (Auto) Baso # (Auto) WBC Differential Seg Neuts % (Manual) Band Neuts % (Manual) Lymphocytes % (Manual) Monocytes % (Manual) Eosinophils % (Manual) Basophils % (Manual) Abs Neuts (Manual) Differential Comment Platelet Estimate Platelet Morphology Target Cells Ovalocytes Keratocytes Sodium Potassium Chloride Carbon Dioxide Anion Gap BUN Creatinine Estimated GFR Random Glucose Calcium Phosphorus Albumin Vitamin D 25-Hydroxy PTH Intact 704.4 H Hepatitis A IgM Ab Hep Bs Antigen Hep B Core IgM Ab Hep C IgG Ab Microbiology 05/20/18 18:31 Blood - Peripheral Aerobic Blood Culture - Preliminary gram positive cocci 05/20/18 18:31 Blood - Peripheral Anaerobic Blood Culture - Preliminary S. aureus MRSA 05/20/18 18:31 Blood - Peripheral Aerobic Blood Culture - Preliminary gram positive cocci 05/20/18 18:31 Blood - Peripheral Anaerobic Blood Culture - Preliminary gram positive cocci - Imaging Impressions Upper Extremity Ultrasound 05/21/18 00:00 CONCLUSION: 1. No focal fluid collections adjacent to the patent AV fistula. - Procedures None Assessment and Plan - Assessment (1) Encephalopathy Code(s): G93.40 - Encephalopathy, unspecified Status: Acute (2) Sepsis Code(s): A41.9 - Sepsis, unspecified organism Status: Acute (3) ESRD (end stage renal disease) on dialysis Code(s): N18.6 - End stage renal disease; Z99.2 - Dependence on renal dialysis Status: Acute (4) Afib Code(s): I48.91 - Unspecified atrial fibrillation Status: Acute - Plan 1. Encephalopathy sent to ER from SNF due to AMS/Fever/tachycardia, probable Dementia, and Acute Sepsis, CT Head w/ no acute findings, images reviewed. Neuro Checks. 2. Sepsis/MRSA Bacteremia Temp 101.1, HR 114, WBC 23, Source-unclear. S/p Blood Cultures, Vanc/Zosyn, follow up cultures, continue w/ IV Abx, Nephrology for Vanc dosing, CXR w/ no acute findings except pulmonary congestion, 05/21: Patient with positive blood culture for Staph Aureus, in one bottle MRSA positive he is already on Vancomycin, consulted ID specialist, for Sepsis and Bacteremia, recommended to get Blood cultures from the line and from AVG, remove Perm Cath. 3. ESRD on HD: T//, s/p dialysis on per SNF, CXR w/ pulmonary congestion, Nephrology following. 4. A-fib: h/o Afib on Cardizem, initially tachycardic w/ HR 114, likely compounded by sepsis, resolved spontaneously, currently HR 70's, will resume home Cardizem, telemetry, monitor BP 5. Hypertension/CHF by history/history of CVA/DM II/PAD DVT Prophylaxis: SCD/Teds Social work for d/c planning as needed Code Status: Full code. Discussed Condition With: Patient and Nurse. Discharge Planning: once cleared by specialists.
--- NOTE | 2018-05-22 13:39 | P.PNNP ---
Subjective Interval history: Patient is a poor historian secondary to dementia. No verbal complaints however. Physical Exam Vital signs: Vital Signs 05/21/18 20:00 05/22/18 00:00 05/22/18 01:16 Temperature 97.6 F 97.9 F Pulse Rate 86 105 H Respiratory Rate 17 16 Blood Pressure 130/61 125/60 Pulse Oximetry 95 80 L 92 L 05/22/18 04:00 05/22/18 07:37 05/22/18 08:00 Temperature 98.7 F 98.4 F Pulse Rate 100 H 95 H Respiratory Rate 16 16 Blood Pressure 134/63 108/54 L Pulse Oximetry 92 L 96 100 05/22/18 12:00 Temperature 99.1 F Pulse Rate 83 Respiratory Rate 16 Blood Pressure 131/60 Pulse Oximetry 96 Intake & Output 05/21/18 05/22/18 05/22/18 18:59 06:59 18:59 Intake Total 1350 / 1350 200 / 200 Output Total 3000 / 3000 Balance -1650 / -1650 200 / 200 Weight 69.3 kg Intake: IV 350 / 350 Maxipime Inj 1,000 MG In NS Inj 100 / 100 100 ML @ 200 mls/hr IV.SIG Q12H [facility] Rx#:[id number] Vancomycin Inj 1,000 MG In NS 250 / 250 Inj 250 ML @ 250 mls/hr IV.SIG WITH DIALYSIS [facility] Rx#:[id number] Oral 1000 / 1000 200 / 200 Output: Urine 0 / 0 Hemodialysis Amount 3000 / 3000 Other: # Bowel Movements 0 Narrative: GENERAL: following commands today, oriented in person and place. SKIN: Focused skin assessment warm and dry. HEENT: PERRLA, EOMI. No scleral icterus or conjunctival pallor. No lid lag or facial droop. CARDIOVASCULAR: Regular rate and rhythm. Functional AV dialysis fistula left arm. Appears intact. RESPIRATORY: No obvious rhonchi or wheezing. Clear to auscultation. Breath sounds equal bilaterally. GASTROINTESTINAL: Abdomen soft, non-tender, nondistended. BS normal. MUSCULOSKELETAL: Extremities without clubbing, cyanosis, or edema. No obvious deformities. NEUROLOGICAL: Awake, alert, moving all limbs. PSYCHIATRIC: Appropriate mood and affect. Insight and judgment normal. Assessment and Plan - Assessment (1) ESRD (end stage renal disease) on dialysis Code(s): N18.6 - End stage renal disease; Z99.2 - Dependence on renal dialysis Status: Chronic Plan: Continue dialysis TTS schedule. To cannulate LUE AVG. Abx (Vanco) ordered with HD with plans for removal of hemodialysis PermCath tomorrow in the radiology department. Consult in place. Infectious disease following patient Medications should be adjusted for ESRD. Avoid gadolinium. (2) Bacteremia Code(s): R78.81 - Bacteremia Status: Acute Plan: BCx +GPC. Likely PermCath infection. Orders placed for removal. Has AVG that is being cannulated. Vanco ordered with HD. . (3) Hypertension Code(s): I10 - Essential (primary) hypertension Status: Chronic Qualifiers: Hypertension type: essential hypertension Qualified Code(s): I10 - Essential (primary) hypertension Plan: Continue home regimen (4) Diabetes mellitus Code(s): E11.9 - Type 2 diabetes mellitus without complications Status: Acute Plan: Mgmt as per primary
--- NOTE | 2018-05-22 14:26 | ECHRPT ---
Indication: cardiomyopathy CONCLUSIONS Normal left ventricular size. Wall thickness is normal. The left ventricular systolic function is normal with an estimated ejection fraction in the range of 55-60%. The left atrial size is mildly dilated. [id number] mitral valve regurgitation. Diffuse calcification of the aortic valve. The estimated pulmonary arterial pressure is 61 mmHg There is estimated moderate pulmonary hypertension present BP: / HR: Rhythm: MEASUREMENTS (Male / Female) Normal Values Technical Quality: 2D ECHO LV Diastolic Diameter PLAX 4.2 cm 4.2 - 5.9 / 3.9 - 5.3 cm LV Systolic Diameter PLAX 3.1 cm IVS Diastolic Thickness 1.0 cm 0.6 - 1.0 / 0.6 - 0.9 cm LVPW Diastolic Thickness 1.0 cm 0.6 - 1.0 / 0.6 - 0.9 cm LV Relative Wall Thickness 0.5 RV Internal Dim ED PLAX 3.5 cm LVOT Diameter 2.0 cm Aortic Root Diameter 2.8 cm LA Systolic Diameter LX 3.9 cm 3.0 - 4.0 / 2.7 - 3.8 cm LV Ejection Fraction MOD 4C 56.6 % LV Ejection Fraction 4C AL 57.1 % M-MODE Aortic Root Diameter MM 3.6 cm LA Systolic Diameter MM 5.5 cm LA Ao Ratio MM 1.5 DOPPLER AV Peak Velocity 146.0 cm/s AV Peak Gradient 8.5 mmHg LVOT Peak Velocity 123.0 cm/s LVOT Peak Gradient 6.1 mmHg AV Area Cont Eq pk 2.6 cm Mitral E Point Velocity 123.0 cm/s LV E' Lateral Velocity 11.6 cm/s Mitral E to LV E' Lateral Ratio 10.6 LV E' Septal Velocity 14.1 cm/s Mitral E to LV E' Septal Ratio 8.7 TR Peak Velocity 357.0 cm/s TR Peak Gradient 51.0 mmHg Right Atrial Pressure 10.0 mmHg Pulmonary Artery Systolic Pressu 61.0 mmHg Right Ventricular Systolic Press 61.0 mmHg PV Peak Velocity 99.1 cm/s PV Peak Gradient 3.9 mmHg FINDINGS LEFT VENTRICLE Normal left ventricular size. Wall thickness is normal. The left ventricular systolic function is normal with an estimated ejection fraction in the range of 55-60%. RIGHT VENTRICLE Normal right ventricular size and systolic function. LEFT ATRIUM The left atrial size is mildly dilated. RIGHT ATRIUM The right atrial size is normal. ATRIAL SEPTUM Normal atrial septal thickness without atrial level shunting by limited color doppler interrogation. AORTA The aortic root and proximal ascending aorta are normal in size on limited imaging. MITRAL VALVE [id number] mitral valve regurgitation. AORTIC VALVE Diffuse calcification of the aortic valve. TRICUSPID VALVE The estimated pulmonary arterial pressure is 61 mmHg. There is estimated moderate pulmonary hypertension PULMONARY VALVE No pulmonary valve regurgitation or stenosis. VESSELS The inferior vena cava is normal in size. PERICARDIUM No pericardial effusion. Kevin Richardson MD (Electronically Signed) Final Date:22 May 2018 14:25
[2018-05-23] MEDS: Sodium Chloride 0.9% 2 ML Flush BID IV.FLUSH SCH ×2 (09:12→21:18)
[2018-05-23] MEDS: dilTIAZem 60 MG Tablet PO SCH ×4 (09:12→21:16)
[2018-05-23] MEDS: Senna/Docusate Sodium 8.6/50 MG Tablet PO SCH ×2 (09:12→21:16)
--- NOTE | 2018-05-23 10:43 | P.PNID ---
Subjective Remarks: Patient is an 83-year-old male, [facility], brought into the hospital for evaluation of lethargy, fever and tachycardia. Patient has ESRD, and gets hemodialysis. He currently has a permacath. He underwent placement of an AV graft last April 11. He gets hemodialysis every Wednesday, , and Wednesday. 2 blood cultures done in the emergency room are now reported as growing gram-positive cocci, and possible MRSA. Patient received Vanco and Zosyn in the emergency room. Patient at the time my exam is currently undergoing hemodialysis. They are having problem using the AV graft in the left upper extremity, and actively using both permacath and AV graft for his current hemodialysis. Highest temperature has been 101. His WBC is elevated at 24,000. There is no mention of any other problem in the prison. There is been no cough or congestion, nausea or vomiting, abdominal pain, or diarrhea. Infectious disease consultation has been requested to assist with evaluation and treatment of his bacteremia. Notes reviewed Temchristie chica Has new (+) BC today For permacath removal toda WBC 19K Antibiotics: Vancomycin with HD Lines: Permacath Past Medical History: AVF (arteriovenous fistula) (Acute) Hemodialysis access, AV graft Arteriovenous fistula CHF (congestive heart failure) Dementia ESRD (end stage renal disease) on dialysis History of CVA (cerebrovascular accident) Hypertension Peripheral vascular disease Type 2 diabetes mellitus with other diabetic kidney complication Allergies/Adverse Reactions: Allergies No Known Allergies Allergy (Unknown, Uncoded 04/11/18 11:44) n/a Objective Vital Signs 05/22/18 12:00 05/22/18 16:00 05/22/18 20:00 Temperature 99.1 F 97.1 F L 99 F Pulse Rate 83 78 80 Respiratory Rate 16 16 14 Blood Pressure 131/60 102/51 L 143/67 H Pulse Oximetry 96 97 97 05/23/18 00:00 05/23/18 04:00 05/23/18 08:00 Temperature 98.1 F 98 F 98.3 F Pulse Rate 104 H 80 99 H Respiratory Rate 15 17 16 Blood Pressure 118/66 117/56 L 134/65 Pulse Oximetry 90 L 75 L 90 L Intake & Output 05/22/18 05/23/18 05/23/18 18:59 06:59 18:59 Intake Total 1300 / 1300 240 / 240 Balance 1300 / 1300 240 / 240 Weight 69 kg Intake: Oral 1300 / 1300 240 / 240 Other: # Voids 0 # Bowel Movements 0 05/20/18 18:31 Blood - Peripheral Aerobic Blood Culture - Final S. aureus MRSA 05/20/18 18:31 Blood - Peripheral Anaerobic Blood Culture - Final S. aureus MRSA 05/20/18 18:31 Blood - Peripheral Aerobic Blood Culture - Final S. aureus MRSA 05/20/18 18:31 Blood - Peripheral Anaerobic Blood Culture - Final S. aureus MRSA 05/21/18 14:45 Blood - Other Aerobic Blood Culture - Preliminary gram positive cocci 05/21/18 14:45 Blood - Other Anaerobic Blood Culture - Preliminary No growth in 1 day 05/21/18 14:45 Blood - Other Aerobic Blood Culture - Preliminary gram positive cocci 05/21/18 14:45 Blood - Other Anaerobic Blood Culture - Preliminary No growth in 1 day 05/20/18 18:51 Nasal Wash Influenza Types A,B Antigen - Final Negative for FLU A and B antigen Infection due to influenza A or B cannot be ruled out since the antigen present in the sample may be below the detection limit of the test. Lab - Hematology Results 05/22/18 06:28 WBC 19.7 H RBC 3.98 L Hgb 9.4 L Hct 30.1 L MCV 75.6 L MCH 23.6 L MCHC 31.2 L RDW 21.2 H Plt Count 193 MPV 8.4 Prelim Diff (Auto) Slide review pending Neut % (Auto) 71.4 H Lymph % (Auto) 3.3 L [place] % (Auto) 24.4 H Eos % (Auto) 0.2 Baso % (Auto) 0.7 Neut # (Auto) 14.0 H Lymph # (Auto) 0.6 L [place] # (Auto) 4.8 H Eos # (Auto) 0.0 Baso # (Auto) 0.1 WBC Differential Manual diff final Seg Neuts % (Manual) 78 H Band Neuts % (Manual) 16 H Lymphocytes % (Manual) 3 L Monocytes % (Manual) 1 Eosinophils % (Manual) 1 Basophils % (Manual) 1 Abs Neuts (Manual) 18.5 H Differential Comment . Platelet Estimate Normal Platelet Morphology Normal Target Cells 2+ H Ovalocytes 1+ H Keratocytes Occ H Lab - Chemistry Results 05/22/18 05/22/18 06:28 06:28 Sodium 139 Potassium 4.1 Chloride 99 Carbon Dioxide 29.0 Anion Gap 11 BUN 40 H Creatinine 6.60 H Estimated GFR 10 L Random Glucose 164 H Calcium 9.5 Phosphorus 4.1 Albumin 2.8 L Vitamin D 25-Hydroxy 53.3 PTH Intact 704.4 H Imaging: ITS Impressions Chest X-Ray 05/20/18 18:07 CONCLUSION: 1. Right subclavian central venous catheter in place. No evidence of pneumothorax. 2. Pulmonary vascular congestion/mild pulmonary edema. Head CT 05/20/18 18:07 CONCLUSION: 1. No acute findings in the brain. . Upper Extremity Ultrasound 05/21/18 00:00 CONCLUSION: 1. No focal fluid collections adjacent to the patent AV fistula. Physical Exam: GENERAL: awake and alert, not in respiratory distress. He is confused SKIN: Warm and dry. No generalized rash, no ecchymoses and no evidence of embolic lesions. HEAD: Atraumatic. Normocephalic. No temporal wasting, or tenderness. EYES: [place] conjunctiva. No petechia or hemorrhage. Pupils equal, round and reactive to light. Extraocular movements full and intact. No scleral icterus. No injection or drainage. EARS, NOSE AND THROAT: Nose without bleeding or purulent nasal discharge. No sinus tenderness. Mucous membranes pink and moist. No oral lesions noted. No exudate. No oral thrush. NECK: Trachea midline. Supple and not tender, no meningeal signs CARDIOVASCULAR: Regular rate and rhythm. No murmurs, rubs or gallops heard. Permacath R upper chest site dry, no discharge, no redness, no tenderness at tunnel, no induration, no swelling. RESPIRATORY: Clear to auscultation. Breath sounds equal bilaterally. No rales , wheezing or rhonchi ABDOMEN: Soft, non-tender, nondistended. Bowel sounds present and normoactive. No guarding. No rebound. No organomegaly. EXTREMITIES: No clubbing, cyanosis, or edema. No joint effusion, has good ROM. No calf tenderness. Well perfused and warm. LUE AVG no redness or induration or tenderness NEUROLOGICAL: Awake and alert. No facial asymmetry. Moves all extremities PSYCHIATRIC: calm and cooperative. LINE: No evidence of infection Assessment and Plan - Plan Impression Sepsis, possible MRSA - source, possibly the HD cath - no thrombus in AVG Encephalopathy due to sepsis ESRD, on HD TTHSA Fevers and leukocytosis due to sepsis Recommendation Follow C/S Continue IV vanco with HD For permacath removal Echo Monitor progress
[2018-05-23] MEDS: CALCITRIOL PO SCH (11:08)
--- NOTE | 2018-05-23 11:14 | P.PNNP ---
Subjective Interval history: Patient lying comfortably in bed. Just came back from radiology and hemodialysis PermCath was removed. Physical Exam Vital signs: Vital Signs 05/22/18 12:00 05/22/18 16:00 05/22/18 20:00 Temperature 99.1 F 97.1 F L 99 F Pulse Rate 83 78 80 Respiratory Rate 16 16 14 Blood Pressure 131/60 102/51 L 143/67 H Pulse Oximetry 96 97 97 05/23/18 00:00 05/23/18 04:00 05/23/18 08:00 Temperature 98.1 F 98 F 98.3 F Pulse Rate 104 H 80 99 H Respiratory Rate 15 17 16 Blood Pressure 118/66 117/56 L 134/65 Pulse Oximetry 90 L 75 L 90 L Intake & Output 05/22/18 05/23/18 05/23/18 18:59 06:59 18:59 Intake Total 1300 / 1300 240 / 240 Balance 1300 / 1300 240 / 240 Weight 69 kg Intake: Oral 1300 / 1300 240 / 240 Other: # Voids 0 # Bowel Movements 0 Narrative: GENERAL: following commands today, oriented in person and place. SKIN: Focused skin assessment warm and dry. HEENT: PERRLA, EOMI. No scleral icterus or conjunctival pallor. No lid lag or facial droop. CARDIOVASCULAR: Regular rate and rhythm. Functional AV dialysis fistula left arm. Appears intact. RESPIRATORY: No obvious rhonchi or wheezing. Clear to auscultation. Breath sounds equal bilaterally. GASTROINTESTINAL: Abdomen soft, non-tender, nondistended. BS normal. MUSCULOSKELETAL: Extremities without clubbing, cyanosis, or edema. No obvious deformities. NEUROLOGICAL: Awake, alert, moving all limbs. PSYCHIATRIC: Appropriate mood and affect. Insight and judgment normal. Assessment and Plan - Assessment (1) ESRD (end stage renal disease) on dialysis Code(s): N18.6 - End stage renal disease; Z99.2 - Dependence on renal dialysis Status: Chronic Plan: Continue dialysis TTS schedule. Second set of blood cultures still positive. Repeat with dialysis tomorrow. Hemodialysis catheter was removed today. Will use AV graft as access. Continue vancomycin. Duration as per infectious disease. Echocardiogram report noted and no vegetations reported. Medications should be adjusted for ESRD. Avoid gadolinium. (2) Bacteremia Code(s): R78.81 - Bacteremia Status: Acute Plan: As above . (3) Hypertension Code(s): I10 - Essential (primary) hypertension Status: Chronic Qualifiers: Hypertension type: essential hypertension Qualified Code(s): I10 - Essential (primary) hypertension Plan: Continue home regimen (4) Diabetes mellitus Code(s): E11.9 - Type 2 diabetes mellitus without complications Status: Acute Plan: Mgmt as per primary
--- NOTE | 2018-05-23 14:47 | IR ---
EXAM DATE: 05/23/2018 10:32 AM EST AGE/SEX: 83 years / Male INDICATIONS: Patient with sepsis and AMS. Here for perm cath removal. CLINICAL DATA: This is the patient's subsequent encounter. Patient reports that signs and symptoms h ave been present for 4 - 6 days and indicates a pain score of 0/10. MEDICAL/SURGICAL HISTORY: Hypertension. Dementia. Dementia. CHF, CVA, PVD, Cholecystectomy . AV fistula,, bladder surgery COMPARISON: No prior exams available for comparison. IMAGE SERIES: 0 ACCESS SITE: Right . . PROCEDURE: 1. PermaCath removal. The risks, benefits and alternatives to the procedure were explained and verbal and written consent w as obtained. The site was prepped in sterile fashion. Full sterile technique was used, including ca p, mask, sterile gloves and gown and a large sterile sheet. Hand hygiene and 2% chlorhexidine and/or betadine/alcohol prep was utilized per protocol for cutaneous antisepsis. The skin and subcutaneous tissues were infiltrated with local anesthetic solution. The tract was anesthetized with 1% Lidocaine using. The Permcath was dissected from the subcutaneous tissues and easily removed in one piece. Manual pressure was applied to the venotomy site until hem ostasis was obtained. Sterile dressing was applied. The patient tolerated the procedure well and there were no complications. CONCLUSION: 1. Uncomplicated Permcath removal. Electronically signed by: Luis Fernando Mann MD 05/23/2018 2:46 PM EST
--- NOTE | 2018-05-23 16:22 | P.PN ---
Subjective Interval history: This is an 83-year-old male with a PMH of HTN, Hyperlipidemia, Dementia, CHF ( Echo 03/13/18 w/ EF 65-70%), ESRD on HD T//, s/p LUE AV Graft by Dr. Bustos 04/11/18, DM and h/o CVA who was sent to the ER from SNF due to AMS, fever and tachycardia. Pt unable to provide any history at this time. Per report, pt noted to have episode of fever, tachycardia and increased confusion today. Last HD on , no missed dialysis per SNF. On arrival, BP 136/64, HR 114, O2 sat 100% on 3L NC, Temp 101.1. WBC 23.4. INR 1.2. Creatinine 8.33. Troponin 0 0.09. CXR with right subclavian central venous catheter in place, no pneumothorax, mild pulmonary edema. CT Head no acute findings. S/p Vanc/ Zosyn in ER. 05/21: Patient with positive blood culture for Staph Aureus, in one bottle MRSA positive he is already on Vancomycin, consulted ID specialist, for Sepsis and Bacteremia, recommended to get Blood cultures from the line and from AVG, remove Perm Cath. 05/22: Seen in his bedroom, discussed with Nurse, ID following, continue IV Vancomycin. Echocardiogram. 05/23: stable in his bedroom, status post Perm Cath removal, to continue hemodialysis TTS, using AV grafts for access Continue Vancomycin, Echocardiogram with no vegetations. no nausea, vomit or diarrhea. Physical Exam Vital signs: Vital Signs 05/22/18 20:00 05/23/18 00:00 05/23/18 04:00 Temperature 99 F 98.1 F 98 F Pulse Rate 80 104 H 80 Respiratory Rate 14 15 17 Blood Pressure 143/67 H 118/66 117/56 L Pulse Oximetry 97 90 L 75 L 05/23/18 08:00 05/23/18 12:00 05/23/18 16:00 Temperature 98.3 F 97.2 F L 97.4 F L Pulse Rate 99 H 105 H 75 Respiratory Rate 16 16 16 Blood Pressure 134/65 139/65 129/59 L Pulse Oximetry 90 L 90 L 96 Intake & Output 05/22/18 05/23/18 05/23/18 18:59 06:59 18:59 Intake Total 1300 / 1300 240 / 240 Balance 1300 / 1300 240 / 240 Weight 69 kg Intake: Oral 1300 / 1300 240 / 240 Other: # Voids 0 # Bowel Movements 0 Narrative: GENERAL: No acute distress. SKIN: Focused skin assessment warm and dry. HEENT: PERRLA, EOMI. No scleral icterus or conjunctival pallor. No lid lag or facial droop. CARDIOVASCULAR: Regular rate and rhythm. RESPIRATORY: No obvious rhonchi or wheezing. Clear to auscultation. GASTROINTESTINAL: Abdomen soft, non-tender, nondistended. BS normal. MUSCULOSKELETAL: Extremities without clubbing, cyanosis, or edema. NEUROLOGICAL: Awake, alert, not answering questions. No focal neurologic deficits. PSYCHIATRIC: Appropriate mood and affect. Results - Labs CBC & Chem 7: 05/27/18 07:05 05/25/18 15:58 Laboratory Results - last 24 hr 05/23/18 12:30 Random Vancomycin 15.2 Microbiology 05/21/18 14:45 Blood - Other Aerobic Blood Culture - Final S. aureus MRSA 05/21/18 14:45 Blood - Other Anaerobic Blood Culture - Preliminary No growth in 2 days 05/21/18 14:45 Blood - Other Aerobic Blood Culture - Preliminary gram positive cocci 05/21/18 14:45 Blood - Other Anaerobic Blood Culture - Preliminary No growth in 2 days 05/20/18 18:31 Blood - Peripheral Aerobic Blood Culture - Final S. aureus MRSA 05/20/18 18:31 Blood - Peripheral Anaerobic Blood Culture - Final S. aureus MRSA 05/20/18 18:31 Blood - Peripheral Aerobic Blood Culture - Final S. aureus MRSA 05/20/18 18:31 Blood - Peripheral Anaerobic Blood Culture - Final S. aureus MRSA - Imaging Impressions Tube Removal 05/23/18 00:00 CONCLUSION: 1. Uncomplicated Permcath removal. - Procedures None Assessment and Plan - Assessment (1) Encephalopathy Code(s): G93.40 - Encephalopathy, unspecified Status: Acute (2) Sepsis Code(s): A41.9 - Sepsis, unspecified organism Status: Acute (3) ESRD (end stage renal disease) on dialysis Code(s): N18.6 - End stage renal disease; Z99.2 - Dependence on renal dialysis Status: Acute (4) Afib Code(s): I48.91 - Unspecified atrial fibrillation Status: Acute - Plan 1. Encephalopathy sent to ER from SNF due to AMS/Fever/tachycardia, probable Dementia, and Acute Sepsis, CT Head w/ no acute findings, images reviewed. Neuro Checks. 2. Sepsis/MRSA Bacteremia Temp 101.1, HR 114, WBC 23, Source-unclear. S/p Blood Cultures, Vanc/Zosyn, follow up cultures, continue w/ IV Abx, Nephrology for Vanc dosing, CXR w/ no acute findings except pulmonary congestion, 05/21: Patient with positive blood culture for Staph Aureus, in one bottle MRSA positive he is already on Vancomycin, consulted ID specialist, for Sepsis and Bacteremia, second set of blood cultures positive for MRSA, to continue Vancomycin. 3. ESRD on HD: T//, s/p dialysis on per SNF, CXR w/ pulmonary congestion, will have hemodialysis tomorrow, Perm Cath removed, will have HD tomorrow using AV graft. 4. A-fib: h/o Afib on Cardizem, initially tachycardic w/ HR 114, likely compounded by sepsis, resolved spontaneously, currently HR 70's, will resume home Cardizem, telemetry, monitor BP 5. Hypertension/CHF by history/history of CVA/DM II/PAD DVT Prophylaxis: SCD/Teds Social work for d/c planning as needed Code Status: Full code Discussed Condition With: Patient and Nurse. Discharge Planning: once cleared by specialists.
--- NOTE | 2018-05-24 13:10 | P.PNNP ---
Subjective Interval history: Pt seen during HD. Access difficult cannulation as per RN. PermCath removed 05/23 Pt voices no complaints. Physical Exam Vital signs: Vital Signs 05/23/18 16:00 05/23/18 20:00 05/24/18 00:00 Temperature 97.4 F L 97.8 F 98.0 F Pulse Rate 75 99 H 75 Respiratory Rate 16 18 18 Blood Pressure 129/59 L 155/70 H 133/63 Pulse Oximetry 96 93 L 92 L 05/24/18 04:00 05/24/18 07:35 05/24/18 08:00 Temperature 98.0 F 97.9 F Pulse Rate 75 98 H 97 H Respiratory Rate 18 17 Blood Pressure 148/67 H 137/66 Pulse Oximetry 97 97 05/24/18 12:00 Temperature Pulse Rate 112 H Respiratory Rate Blood Pressure Pulse Oximetry Intake & Output 05/23/18 05/24/18 05/24/18 18:59 06:59 18:59 Intake Total 1000 / 1000 120 / 120 Balance 1000 / 1000 120 / 120 Weight 67.1 kg Intake: Oral 1000 / 1000 120 / 120 Other: # Voids 0 1 # Incontinent Bowel Movements 0 - Constitutional no acute distress - Routine HEENT Exam Head: Present: normocephalic - Routine Neck Exam Present: supple - Routine Respiratory Exam Present: CTA bilaterally - Routine Cardiovascular Exam Present: RRR, S1, S2 - Routine Abdominal Exam Present: soft - Routine Extremities Exam Absent: edema - Routine Skin Exam Present: intact - Routine Neurological Exam Present: alert - Routine Psychiatric Exam Present: normal affect Assessment and Plan - Assessment (1) ESRD (end stage renal disease) on dialysis Code(s): N18.6 - End stage renal disease; Z99.2 - Dependence on renal dialysis Status: Chronic Plan: Pt seen during HD. Continue dialysis TTS schedule. PermCath removed 05/23 Repeat BCx drawn again 05/24 Remains on Vanco Medications should be adjusted for ESRD. Avoid gadolinium. (2) Bacteremia Code(s): R78.81 - Bacteremia Status: Acute Plan: As above (3) Hypertension Code(s): I10 - Essential (primary) hypertension Status: Chronic Qualifiers: Hypertension type: essential hypertension Qualified Code(s): I10 - Essential (primary) hypertension Plan: Continue home regimen (4) Diabetes mellitus Code(s): E11.9 - Type 2 diabetes mellitus without complications Status: Acute Plan: Mgmt as per primary
[2018-05-24] MEDS: Senna/Docusate Sodium 8.6/50 MG Tablet PO SCH ×2 (14:22→21:40)
[2018-05-24] MEDS: Sodium Chloride 0.9% 2 ML Flush BID IV.FLUSH SCH ×2 (14:22→21:39)
[2018-05-24] MEDS: dilTIAZem 60 MG Tablet PO SCH ×4 (14:22→21:39)
--- NOTE | 2018-05-24 17:21 | P.PN ---
Subjective Interval history: This is an 83-year-old male with a PMH of HTN, Hyperlipidemia, Dementia, CHF ( Echo 03/13/18 w/ EF 65-70%), ESRD on HD T//, s/p LUE AV Graft by Dr. Bustos 04/11/18, DM and h/o CVA who was sent to the ER from SNF due to AMS, fever and tachycardia. Pt unable to provide any history at this time. Per report, pt noted to have episode of fever, tachycardia and increased confusion today. Last HD on , no missed dialysis per SNF. On arrival, BP 136/64, HR 114, O2 sat 100% on 3L NC, Temp 101.1. WBC 23.4. INR 1.2. Creatinine 8.33. Troponin 0 0.09. CXR with right subclavian central venous catheter in place, no pneumothorax, mild pulmonary edema. CT Head no acute findings. S/p Vanc/ Zosyn in ER. 05/21: Patient with positive blood culture for Staph Aureus, in one bottle MRSA positive he is already on Vancomycin, consulted ID specialist, for Sepsis and Bacteremia, recommended to get Blood cultures from the line and from AVG, remove Perm Cath. 05/22: Seen in his bedroom, discussed with Nurse, ID following, continue IV Vancomycin. Echocardiogram. 05/23: stable in his bedroom, status post Perm Cath removal, to continue hemodialysis TTS, using AV grafts for access Continue Vancomycin, Echocardiogram with no vegetations. 05/24: discussed with patient and nurse, Hemodialysis today, Perm Cath removed 05/23, repeated blood cultures 05/24 Continue Vancomycin while on HD, no nausea, vomit or diarrhea. Physical Exam Vital signs: Vital Signs 05/23/18 20:00 05/24/18 00:00 05/24/18 04:00 Temperature 97.8 F 98.0 F 98.0 F Pulse Rate 99 H 75 75 Respiratory Rate Blood Pressure 155/70 H 133/63 148/67 H Pulse Oximetry 93 L 92 L 97 05/24/18 07:35 05/24/18 08:00 05/24/18 12:00 Temperature 97.9 F Pulse Rate 98 H 97 H 112 H Respiratory Rate 17 Blood Pressure 137/66 Pulse Oximetry 97 Intake & Output 05/23/18 05/24/18 05/24/18 18:59 06:59 18:59 Intake Total 1000 / 1000 120 / 120 Balance 1000 / 1000 120 / 120 Weight 67.1 kg Intake: Oral 1000 / 1000 120 / 120 Other: # Voids 0 1 # Incontinent Bowel Movements 0 Narrative: GENERAL: No acute distress. SKIN: Focused skin assessment warm and dry. HEENT: PERRLA, EOMI. No scleral icterus or conjunctival pallor. No lid lag or facial droop. CARDIOVASCULAR: Regular rate and rhythm. RESPIRATORY: No obvious rhonchi or wheezing. Clear to auscultation. GASTROINTESTINAL: Abdomen soft, non-tender, nondistended. BS normal. MUSCULOSKELETAL: Extremities without clubbing, cyanosis, or edema. NEUROLOGICAL: Awake, alert, not answering questions. No focal neurologic deficits. PSYCHIATRIC: Appropriate mood and affect. Results - Labs CBC & Chem 7: 05/27/18 07:05 05/25/18 15:58 Microbiology 05/23/18 12:30 Blood - Peripheral Aerobic Blood Culture - Preliminary gram positive cocci 05/23/18 12:30 Blood - Peripheral Anaerobic Blood Culture - Preliminary No growth in 1 day 05/21/18 14:45 Blood - Other Aerobic Blood Culture - Final S. aureus MRSA 05/21/18 14:45 Blood - Other Anaerobic Blood Culture - Preliminary No growth in 3 days 05/21/18 14:45 Blood - Other Aerobic Blood Culture - Final S. aureus MRSA 05/21/18 14:45 Blood - Other Anaerobic Blood Culture - Preliminary No growth in 3 days - Imaging Chest X-Ray 05/20/18 18:07 CONCLUSION: 1. Right subclavian central venous catheter in place. No evidence of pneumothorax. 2. Pulmonary vascular congestion/mild pulmonary edema. Head CT 05/20/18 18:07 CONCLUSION: 1. No acute findings in the brain. . Upper Extremity Ultrasound 05/21/18 00:00 CONCLUSION: 1. No focal fluid collections adjacent to the patent AV fistula. Tube Removal 05/23/18 00:00 CONCLUSION: 1. Uncomplicated Permcath removal. - Procedures None Assessment and Plan - Assessment (1) Encephalopathy Code(s): G93.40 - Encephalopathy, unspecified Status: Acute (2) Sepsis Code(s): A41.9 - Sepsis, unspecified organism Status: Acute (3) ESRD (end stage renal disease) on dialysis Code(s): N18.6 - End stage renal disease; Z99.2 - Dependence on renal dialysis Status: Acute (4) Afib Code(s): I48.91 - Unspecified atrial fibrillation Status: Acute - Plan 1. Encephalopathy sent to ER from SNF due to AMS/Fever/tachycardia, probable Dementia, and Acute Sepsis, CT Head w/ no acute findings, images reviewed. Neuro Checks. Improved to baseline. 2. Sepsis/MRSA Bacteremia Temp 101.1, HR 114, WBC 23, Source-unclear. S/p Blood Cultures, Vanc/Zosyn, follow up cultures, continue w/ IV Abx, Nephrology for Vanc dosing, CXR w/ no acute findings except pulmonary congestion, 05/21: Patient with positive blood culture for Staph Aureus, in one bottle MRSA positive he is already on Vancomycin, ID specialist following, for Sepsis and Bacteremia, second set of blood cultures positive for MRSA, to continue Vancomycin. Perm cath removed 05/23. 3. ESRD on HD: T//, s/p dialysis on per SNF, CXR w/ pulmonary congestion, Nephrology following. today had Hemodialysis using AV graft. 4. A-fib: h/o Afib on Cardizem, initially tachycardic w/ HR 114, likely compounded by sepsis, resolved spontaneously, currently HR 70's, will resume home Cardizem, telemetry, monitor BP 5. Hypertension/CHF by history/history of CVA/DM II/PAD stable. Diet controlled DM II. DVT Prophylaxis: SCD/Teds Social work for d/c planning as needed Code Status: Full code. Discussed Condition With: Patient and Nurse. Discharge Planning: once cleared by specialists.
[2018-05-25 07:38] LABS: Baso # (Auto) 0.2 th/mm3 (0.0-0.2); Baso % (Auto) 1.6 % (0.0-2.0); Eos # (Auto) 0.3 th/mm3 (0.0-0.4); Eos % (Auto) 2.5 % (0.0-4.0); Hematocrit 27.2 % (39.0-51.0); Hemoglobin 8.8 gm/dL (13.0-17.0); Lymph # (Auto) 0.6 th/mm3 (1.0-4.8); Lymph % (Auto) 6.3 % (9.0-44.0); Mean Corpuscular HGB Conc 32.3 % (32.0-36.0); Mean Corpuscular Volume 74.2 fL (80.0-100.0); Mean Platelet Volume 8.4 fL (7.0-11.0); Mono # (Auto) 1.5 th/mm3 (0.0-0.9); Mono % (Auto) 15.4 % (0.0-8.0); Neut # (Auto) 7.3 th/mm3 (1.8-7.7); Neut % (Auto) 74.2 % (16.0-70.0); Platelet Count 251 th/mm3 (150-450); Red Blood Count 3.67 mil/mm3 (4.50-5.90); Red Cell Distribution Width 20.3 % (11.6-17.2); White Blood Count 9.9 th/mm3 (4.0-11.0)
[2018-05-25 08:26] LABS: Albumin 2.5 g/dL (3.4-5.0); Carbon Dioxide 30.5 meq/L (21.0-32.0); Phosphorus 5.2 mg/dL (2.5-4.9); Potassium 3.9 meq/L (3.5-5.1)
[2018-05-25 08:32] LABS: Ovalocytes 1+; Target Cells 1+
[2018-05-25 08:33] LABS: Acanthocytes Occ; Platelet Estimate Normal (Normal); Platelet Morphology Normal (Normal)
[2018-05-25] MEDS: Sodium Chloride 0.9% 2 ML Flush BID IV.FLUSH SCH ×2 (09:43→20:35)
[2018-05-25] MEDS: Senna/Docusate Sodium 8.6/50 MG Tablet PO SCH ×2 (09:43→20:35)
[2018-05-25] MEDS: CALCITRIOL PO SCH (09:43)
[2018-05-25] MEDS: dilTIAZem 60 MG Tablet PO SCH ×4 (09:43→20:35)
[2018-05-25] MEDS: Vancomycin Inj 1,000 MG in Sodium Chlor 0.9% Inj 250 ML IV.SIG SCH (11:25)
--- NOTE | 2018-05-25 11:33 | P.PNIM ---
Subjective Interval history: 83yo m admitted with fever, gpc bacteremia s/p dialysis catheter removal yesterday, doing better, seen on dialysis now, denies sob, no cp, no nv, Physical Exam Vital signs: Last Vital Signs Temp 98.1 F 05/25/18 08:00 Pulse 86 05/25/18 08:00 Resp 16 05/25/18 08:00 BP 130/60 05/25/18 08:00 Pulse Ox 98 05/25/18 08:00 Intake & Output 05/23/18 05/24/18 05/25/18 05/26/18 06:59 06:59 06:59 06:59 Intake Total 1540 / 1540 1120 / 1120 580 / 580 Balance 1540 / 1540 1120 / 1120 580 / 580 Weight 69 kg 67.1 kg 67 kg gen aaox2 nad pleasantly forgetful heart s1s2 reg irregular, mr lungs clear no wrr, full symmetric expansion abd soft nondt pos bs no mass ext - avf w access left arm w thrill, lower ext no edema no calf tenderness Results Labs CBC & Chem 7: 05/25/18 07:20 05/25/18 07:20 Labs: Microbiology 05/24/18 12:30 Blood - Other Aerobic Blood Culture - Preliminary No growth in 1 day 05/24/18 12:30 Blood - Other Anaerobic Blood Culture - Preliminary No growth in 1 day 05/24/18 12:20 Blood - Other Aerobic Blood Culture - Preliminary No growth in 1 day 05/24/18 12:20 Blood - Other Anaerobic Blood Culture - Preliminary No growth in 1 day 05/24/18 08:00 Blood - Peripheral Aerobic Blood Culture - Preliminary No growth in 1 day 05/24/18 08:00 Blood - Peripheral Anaerobic Blood Culture - Preliminary No growth in 1 day 05/23/18 12:30 Blood - Peripheral Aerobic Blood Culture - Final S. aureus MRSA 05/23/18 12:30 Blood - Peripheral Anaerobic Blood Culture - Preliminary No growth in 2 days 05/21/18 14:45 Blood - Other Aerobic Blood Culture - Final S. aureus MRSA 05/21/18 14:45 Blood - Other Anaerobic Blood Culture - Preliminary No growth in 4 days 05/21/18 14:45 Blood - Other Aerobic Blood Culture - Final S. aureus MRSA 05/21/18 14:45 Blood - Other Anaerobic Blood Culture - Preliminary No growth in 4 days Procedures Procedures: None Assessment and Plan (1) Encephalopathy: Code(s): G93.40 - Encephalopathy, unspecified Status: Acute (2) Sepsis: Code(s): A41.9 - Sepsis, unspecified organism Status: Acute (3) ESRD (end stage renal disease) on dialysis: Code(s): N18.6 - End stage renal disease; Z99.2 - Dependence on renal dialysis Status: Acute (4) Afib: Code(s): I48.91 - Unspecified atrial fibrillation Status: Acute Plan -ACUTE METABOLIC ENCEPHALOPATHY - sent to ER from SNF due to AMS/Fever/ tachycardia, probable Dementia, and Acute Sepsis, CT Head w/ no acute findings, images reviewed. improving to baseline. - SEPSIS/MRSA Bacteremia likely iv catheter related, Temp 101.1, HR 114, WBC 23 down to 9.9, cont vanco per ID, s/p dialysis catheter removal. - ESRD on HD: T//S, dialysis today, cont per nephrology - A-FIB w RVR, chronic h/o pAfib on Cardizem, initially tachycardic w/ HR 114, likely compounded by sepsis, will resume home Cardizem, telemetry, monitor BP, high risk for ac due to risk of bleeding, cont rate control CHADs2- Vasc 8, high risk, consider aspirin -HTN/CHF by history, currently compensated and nml lvfx per echo /history of CVA /PAD hx -DM NIDDM- cont iss, diet, controlled -ANEMIA - chronic dz/ckd - stable -DISPOSITION - return to snf when ok with ID, IV abx may likely be continued in dialysis. DVT Prophylaxis: SCD/Teds Social work for d/c planning as needed Progress Note: Quality VTE Deep Vein Thrombosis/Pulmonary Embolism Present on Admission: No _ (1) Afib Qualifiers: Atrial fibrillation type: (2) Sepsis Qualifiers: Sepsis type:
[2018-05-25] MEDS: Gelatin 12 MM/7 MM Topical Foam TOPICAL PRN (11:52)
--- NOTE | 2018-05-25 13:44 | P.PNID ---
Subjective Remarks: Patient is an 83-year-old male, resides in the senior living, brought into the hospital for evaluation of lethargy, fever and tachycardia. Patient has ESRD, and gets hemodialysis. He currently has a permacath. He underwent placement of an AV graft last April 11. He gets hemodialysis every Wednesday, , and Wednesday. 2 blood cultures done in the emergency room are now reported as growing gram-positive cocci, and possible MRSA. Patient received Vanco and Zosyn in the emergency room. Patient at the time my exam is currently undergoing hemodialysis. They are having problem using the AV graft in the left upper extremity, and actively using both permacath and AV graft for his current hemodialysis. Highest temperature has been 101. His WBC is elevated at 24,000. There is no mention of any other problem in the senior living. There is been no cough or congestion, nausea or vomiting, abdominal pain, or diarrhea. Infectious disease consultation has been requested to assist with evaluation and treatment of his bacteremia. Notes reviewed Temps ok Last (+) BC 05/23 Permacath removed 05/23 Had HD today Got Vanco IV today WBC down to normal Echo ok, no vegetation seen Antibiotics: Vancomycin with HD Lines: Permacath Past Medical History: AVF (arteriovenous fistula) (Acute) Hemodialysis access, AV graft Arteriovenous fistula CHF (congestive heart failure) Dementia ESRD (end stage renal disease) on dialysis History of CVA (cerebrovascular accident) Hypertension Peripheral vascular disease Type 2 diabetes mellitus with other diabetic kidney complication Allergies/Adverse Reactions: Allergies No Known Allergies Allergy (Unknown, Uncoded 04/11/18 11:44) n/a Objective Vital Signs 05/24/18 15:50 05/24/18 16:00 05/24/18 20:00 Temperature 97.7 F 98.3 F Pulse Rate 93 H 105 H 52 L Respiratory Rate 16 18 Blood Pressure 140/60 153/67 H Pulse Oximetry 97 97 05/25/18 00:00 05/25/18 04:38 05/25/18 08:00 Temperature 98.6 F 98.0 F 98.1 F Pulse Rate 77 65 86 Respiratory Rate 17 17 16 Blood Pressure 147/66 H 156/72 H 130/60 Pulse Oximetry 94 L 99 98 Intake & Output 05/24/18 05/25/18 05/25/18 18:59 06:59 18:59 Intake Total 580 / 580 Output Total 1000 / 1000 Balance 580 / 580 -1000 / -1000 Weight 67 kg Intake: Oral 580 / 580 Output: Hemodialysis Amount 1000 / 1000 Other: # Voids 0 Date of Last Bowel Movement 05/24/18 # Bowel Movements 4 05/24/18 12:30 Blood - Other Aerobic Blood Culture - Preliminary No growth in 1 day 05/24/18 12:30 Blood - Other Anaerobic Blood Culture - Preliminary No growth in 1 day 05/24/18 12:20 Blood - Other Aerobic Blood Culture - Preliminary No growth in 1 day 05/24/18 12:20 Blood - Other Anaerobic Blood Culture - Preliminary No growth in 1 day 05/24/18 08:00 Blood - Peripheral Aerobic Blood Culture - Preliminary No growth in 1 day 05/24/18 08:00 Blood - Peripheral Anaerobic Blood Culture - Preliminary No growth in 1 day 05/23/18 12:30 Blood - Peripheral Aerobic Blood Culture - Final S. aureus MRSA 05/23/18 12:30 Blood - Peripheral Anaerobic Blood Culture - Preliminary No growth in 2 days 05/21/18 14:45 Blood - Other Aerobic Blood Culture - Final S. aureus MRSA 05/21/18 14:45 Blood - Other Anaerobic Blood Culture - Preliminary No growth in 4 days 05/21/18 14:45 Blood - Other Aerobic Blood Culture - Final S. aureus MRSA 05/21/18 14:45 Blood - Other Anaerobic Blood Culture - Preliminary No growth in 4 days 05/20/18 18:31 Blood - Peripheral Aerobic Blood Culture - Final S. aureus MRSA 05/20/18 18:31 Blood - Peripheral Anaerobic Blood Culture - Final S. aureus MRSA 05/20/18 18:31 Blood - Peripheral Aerobic Blood Culture - Final S. aureus MRSA 05/20/18 18:31 Blood - Peripheral Anaerobic Blood Culture - Final S. aureus MRSA Lab - Hematology Results 05/25/18 07:20 WBC 9.9 RBC 3.67 L Hgb 8.8 L Hct 27.2 L MCV 74.2 L MCH 24.0 L MCHC 32.3 RDW 20.3 H Plt Count 251 D MPV 8.4 Prelim Diff (Auto) Slide review pending Neut % (Auto) 74.2 H Lymph % (Auto) 6.3 L [place] % (Auto) 15.4 H Eos % (Auto) 2.5 Baso % (Auto) 1.6 Neut # (Auto) 7.3 Lymph # (Auto) 0.6 L [place] # (Auto) 1.5 H Eos # (Auto) 0.3 Baso # (Auto) 0.2 WBC Differential . Diff Scan Auto diff confirmed Differential Comment . Platelet Estimate Normal Platelet Morphology Normal Target Cells 1+ H Ovalocytes 1+ H Acanthocytes (Spur) Occ H Keratocytes Occ H Lab - Chemistry Results 05/25/18 07:20 Sodium 139 Potassium 3.9 Chloride 97 L Carbon Dioxide 30.5 Anion Gap 12 BUN 57 H Creatinine 8.23 H Estimated GFR 8 L Random Glucose 135 H Calcium 9.0 Phosphorus 5.2 H Albumin 2.5 L Imaging: ITS Impressions Chest X-Ray 05/20/18 18:07 CONCLUSION: 1. Right subclavian central venous catheter in place. No evidence of pneumothorax. 2. Pulmonary vascular congestion/mild pulmonary edema. Head CT 05/20/18 18:07 CONCLUSION: 1. No acute findings in the brain. . Upper Extremity Ultrasound 05/21/18 00:00 CONCLUSION: 1. No focal fluid collections adjacent to the patent AV fistula. Tube Removal 05/23/18 00:00 CONCLUSION: 1. Uncomplicated Permcath removal. Physical Exam: GENERAL: awake and alert, NAD SKIN: Warm and dry. No generalized rash HEAD: Atraumatic. Normocephalic. No temporal wasting, or tenderness. EYES: [place] conjunctiva. No petechia or hemorrhage. Pupils equal, round and reactive to light. Extraocular movements full and intact. No scleral icterus. No injection or drainage. EARS, NOSE AND THROAT: Nose without bleeding or purulent nasal discharge. No sinus tenderness. Mucous membranes pink and moist. No oral lesions noted. No exudate. No oral thrush. NECK: Trachea midline. Supple and not tender, no meningeal signs CARDIOVASCULAR: Regular rate and rhythm. No murmurs, rubs or gallops heard. Permacath R upper chest site dry, no discharge, no redness, no tenderness at tunnel, no induration, no swelling. RESPIRATORY: Clear to auscultation. Breath sounds equal bilaterally. No rales , wheezing or rhonchi ABDOMEN: Soft, non-tender, nondistended. Bowel sounds present and normoactive. No guarding. No rebound. No organomegaly. EXTREMITIES: No clubbing, cyanosis, or edema. No joint effusion, has good ROM. No calf tenderness. Well perfused and warm. LUE AVG no redness or induration or tenderness NEUROLOGICAL: Awake and alert. No facial asymmetry. Moves all extremities PSYCHIATRIC: calm and cooperative. LINE: No evidence of infection Assessment and Plan - Plan Impression Sepsis, MRSA, high grade - possibly the HD cath - Permacath removed 05/23 Encephalopathy due to sepsis ESRD, on HD TTHSA Fevers and leukocytosis due to sepsis, better Recommendation Follow C/S Continue IV vanco with HD Will need 6 weeks IV Abx from date of last (+) BC Follow temps Monitor progress
[2018-05-25] MEDS: Ferrous Sulfate 325 MG Tablet PO SCH (14:37)
[2018-05-25] MEDS: Vitamin B Complex/Vit C/Folic Tablet PO SCH (14:37)
--- NOTE | 2018-05-25 15:01 | P.PNNP ---
Subjective Interval history: Patient had no verbal complaints post dialysis today. Nurse however reports tachycardia. He did not receive Cardizem prior to his dialysis session today. Physical Exam Vital signs: Vital Signs 05/24/18 15:50 05/24/18 16:00 05/24/18 20:00 Temperature 97.7 F 98.3 F Pulse Rate 93 H 105 H 52 L Respiratory Rate 16 18 Blood Pressure 140/60 153/67 H Pulse Oximetry 97 97 05/25/18 00:00 05/25/18 04:38 05/25/18 08:00 Temperature 98.6 F 98.0 F 98.1 F Pulse Rate 77 65 86 Respiratory Rate 17 17 16 Blood Pressure 147/66 H 156/72 H 130/60 Pulse Oximetry 94 L 99 98 Intake & Output 05/24/18 05/25/18 05/25/18 18:59 06:59 18:59 Intake Total 580 / 580 Output Total 1000 / 1000 Balance 580 / 580 -1000 / -1000 Weight 67 kg Intake: Oral 580 / 580 Output: Hemodialysis Amount 1000 / 1000 Other: # Voids 0 Date of Last Bowel Movement 05/24/18 # Bowel Movements 4 Narrative: GENERAL: following commands today, oriented in person and place. SKIN: Focused skin assessment warm and dry. HEENT: PERRLA, EOMI. No scleral icterus or conjunctival pallor. No lid lag or facial droop. CARDIOVASCULAR: Regular rate and rhythm. Functional AV dialysis fistula left arm. Appears intact. RESPIRATORY: No obvious rhonchi or wheezing. Clear to auscultation. Breath sounds equal bilaterally. GASTROINTESTINAL: Abdomen soft, non-tender, nondistended. BS normal. MUSCULOSKELETAL: Extremities without clubbing, cyanosis, or edema. No obvious deformities. NEUROLOGICAL: Awake, alert, moving all limbs. PSYCHIATRIC: Appropriate mood and affect. Insight and judgment normal. Assessment and Plan - Assessment (1) ESRD (end stage renal disease) on dialysis Code(s): N18.6 - End stage renal disease; Z99.2 - Dependence on renal dialysis Status: Chronic Plan: Next hemodialysis session will be Wednesday and then subsequently . Medications should be adjusted for ESRD. Avoid gadolinium. (2) Bacteremia Code(s): R78.81 - Bacteremia Status: Acute Plan: Last set of blood cultures negative times 24 hours. Recommendation from infectious disease regarding 6 weeks of antibiotic therapy total noted. Fortunately AV dialysis fistula is working well and it appears we will be able to avoid new dialysis catheter placement. (3) Hypertension Code(s): I10 - Essential (primary) hypertension Status: Chronic Qualifiers: Hypertension type: essential hypertension Qualified Code(s): I10 - Essential (primary) hypertension Plan: Continue home regimen (4) Diabetes mellitus Code(s): E11.9 - Type 2 diabetes mellitus without complications Status: Acute Plan: Mgmt as per primary
[2018-05-25 17:23] LABS: Calcium 8.9 mg/dL (8.5-10.1); Carbon Dioxide 34.2 meq/L (21.0-32.0); Potassium 3.6 meq/L (3.5-5.1)
[2018-05-26] MEDS: Ferrous Sulfate 325 MG Tablet PO SCH (10:17)
[2018-05-26] MEDS: Allopurinol 100 MG Tablet PO SCH (10:17)
[2018-05-26] MEDS: Senna/Docusate Sodium 8.6/50 MG Tablet PO SCH ×2 (10:17→21:48)
[2018-05-26] MEDS: Vitamin B Complex/Vit C/Folic Tablet PO SCH (10:17)
[2018-05-26] MEDS: dilTIAZem 60 MG Tablet PO SCH ×4 (10:17→21:49)
[2018-05-26] MEDS: Sodium Chloride 0.9% 2 ML Flush BID IV.FLUSH SCH ×2 (10:17→21:52)
--- NOTE | 2018-05-26 11:53 | P.PNID ---
Subjective Remarks: Patient is an 83-year-old male, resides in the [facility], brought into the hospital for evaluation of lethargy, fever and tachycardia. Patient has ESRD, and gets hemodialysis. He currently has a permacath. He underwent placement of an AV graft last April 11. He gets hemodialysis every Wednesday, , and Wednesday. 2 blood cultures done in the emergency room are now reported as growing gram-positive cocci, and possible MRSA. Patient received Vanco and Zosyn in the emergency room. Patient at the time my exam is currently undergoing hemodialysis. They are having problem using the AV graft in the left upper extremity, and actively using both permacath and AV graft for his current hemodialysis. Highest temperature has been 101. His WBC is elevated at 24,000. There is no mention of any other problem in the [facility]. There is been no cough or congestion, nausea or vomiting, abdominal pain, or diarrhea. Infectious disease consultation has been requested to assist with evaluation and treatment of his bacteremia. Notes reviewed Temps ok Has new (+) BC05/24 Permacath removed 05/23 WBC down to normal Echo ok, no vegetation seen Antibiotics: Vancomycin with HD Lines: Permacath Past Medical History: AVF (arteriovenous fistula) (Acute) Hemodialysis access, AV graft Arteriovenous fistula CHF (congestive heart failure) Dementia ESRD (end stage renal disease) on dialysis History of CVA (cerebrovascular accident) Hypertension Peripheral vascular disease Type 2 diabetes mellitus with other diabetic kidney complication Allergies/Adverse Reactions: Allergies No Known Allergies Allergy (Unknown, Uncoded 04/11/18 11:44) n/a Objective Vital Signs 05/25/18 16:00 05/25/18 20:00 05/26/18 00:00 Temperature 97.9 F 97.9 F 97.9 F Pulse Rate 100 H 96 H 57 L Respiratory Rate 16 22 Blood Pressure 118/56 L 148/52 H 163/73 H Pulse Oximetry 100 94 L 93 L 05/26/18 04:00 05/26/18 08:00 05/26/18 09:00 Temperature 98.1 F 98.3 F Pulse Rate 105 H 96 H 96 H Respiratory Rate 22 20 Blood Pressure 151/64 H 167/68 H Pulse Oximetry 94 L 100 05/26/18 11:22 Temperature Pulse Rate 96 H Respiratory Rate Blood Pressure Pulse Oximetry Intake & Output 05/25/18 05/26/18 05/26/18 18:59 06:59 18:59 Intake Total 1100 / 1100 120 / 120 Output Total 1000 / 1000 Balance 100 / 100 120 / 120 Weight 62.8 kg Intake: Oral 1100 / 1100 120 / 120 Output: Hemodialysis Amount 1000 / 1000 Other: # Voids 0 Date of Last Bowel Movement 05/25/18 05/25/18 # Bowel Movements 2 05/24/18 12:30 Blood - Other Aerobic Blood Culture - Final S. aureus MRSA 05/24/18 12:30 Blood - Other Anaerobic Blood Culture - Preliminary No growth in 2 days 05/24/18 08:00 Blood - Peripheral Aerobic Blood Culture - Preliminary No growth in 2 days 05/24/18 08:00 Blood - Peripheral Anaerobic Blood Culture - Final S. aureus MRSA 05/23/18 12:30 Blood - Peripheral Aerobic Blood Culture - Final S. aureus MRSA 05/23/18 12:30 Blood - Peripheral Anaerobic Blood Culture - Preliminary No growth in 3 days 05/21/18 14:45 Blood - Other Aerobic Blood Culture - Final S. aureus MRSA 05/21/18 14:45 Blood - Other Anaerobic Blood Culture - Final No growth in 5 days 05/21/18 14:45 Blood - Other Aerobic Blood Culture - Final S. aureus MRSA 05/21/18 14:45 Blood - Other Anaerobic Blood Culture - Final No growth in 5 days 05/24/18 12:20 Blood - Other Aerobic Blood Culture - Final S. aureus MRSA 05/24/18 12:20 Blood - Other Anaerobic Blood Culture - Preliminary 05/20/18 18:31 Blood - Peripheral Aerobic Blood Culture - Final S. aureus MRSA 05/20/18 18:31 Blood - Peripheral Anaerobic Blood Culture - Final S. aureus MRSA 05/20/18 18:31 Blood - Peripheral Aerobic Blood Culture - Final S. aureus MRSA 05/20/18 18:31 Blood - Peripheral Anaerobic Blood Culture - Final S. aureus MRSA Lab - Hematology Results 05/25/18 07:20 WBC 9.9 RBC 3.67 L Hgb 8.8 L Hct 27.2 L MCV 74.2 L MCH 24.0 L MCHC 32.3 RDW 20.3 H Plt Count 251 D MPV 8.4 Prelim Diff (Auto) Slide review pending Neut % (Auto) 74.2 H Lymph % (Auto) 6.3 L Kidder % (Auto) 15.4 H Eos % (Auto) 2.5 Baso % (Auto) 1.6 Neut # (Auto) 7.3 Lymph # (Auto) 0.6 L Kidder # (Auto) 1.5 H Eos # (Auto) 0.3 Baso # (Auto) 0.2 WBC Differential . Diff Scan Auto diff confirmed Differential Comment . Platelet Estimate Normal Platelet Morphology Normal Target Cells 1+ H Ovalocytes 1+ H Acanthocytes (Spur) Occ H Keratocytes Occ H Lab - Chemistry Results 05/25/18 05/25/18 07:20 15:58 Sodium 139 138 Potassium 3.9 3.6 Chloride 97 L 97 L Carbon Dioxide 30.5 34.2 H Anion Gap 12 7 BUN 57 H 29 H Creatinine 8.23 H 5.32 H Estimated GFR 8 L 13 L Random Glucose 135 H 156 H Calcium 9.0 8.9 Phosphorus 5.2 H Albumin 2.5 L Imaging: ITS Impressions Chest X-Ray 05/20/18 18:07 CONCLUSION: 1. Right subclavian central venous catheter in place. No evidence of pneumothorax. 2. Pulmonary vascular congestion/mild pulmonary edema. Head CT 05/20/18 18:07 CONCLUSION: 1. No acute findings in the brain. . Upper Extremity Ultrasound 05/21/18 00:00 CONCLUSION: 1. No focal fluid collections adjacent to the patent AV fistula. Tube Removal 05/23/18 00:00 CONCLUSION: 1. Uncomplicated Permcath removal. Physical Exam: GENERAL: awake and alert, NAD SKIN: Warm and dry. No generalized rash EYES: Tynan conjunctiva. No petechia or hemorrhage. Pupils equal, round and reactive to light. Extraocular movements full and intact. No scleral icterus. No injection or drainage. EARS, NOSE AND THROAT: Nose without bleeding or purulent nasal discharge. No sinus tenderness. Mucous membranes pink and moist. No oral lesions noted. No exudate. No oral thrush. NECK: Trachea midline. Supple and not tender, no meningeal signs CARDIOVASCULAR: Regular rate and rhythm. No murmurs, rubs or gallops heard. Permacath R upper chest site dry, no discharge, no redness, no tenderness at tunnel, no induration, no swelling. RESPIRATORY: Clear to auscultation. Breath sounds equal bilaterally. No rales , wheezing or rhonchi ABDOMEN: Soft, non-tender, nondistended. Bowel sounds present and normoactive. No guarding. No rebound. No organomegaly. EXTREMITIES: No clubbing, cyanosis, or edema. No joint effusion, has good ROM. No calf tenderness. Well perfused and warm. LUE AVG no redness or induration or tenderness NEUROLOGICAL: Awake and alert. No facial asymmetry. Moves all extremities PSYCHIATRIC: calm and cooperative. LINE: No evidence of infection Assessment and Plan - Plan Impression Sepsis, MRSA, high grade - possibly the HD cath - Permacath removed 05/23 Encephalopathy due to sepsis ESRD, on HD TTHSA Fevers and leukocytosis due to sepsis, better Recommendation repeat BC Change to IV Cubicin Will need 6 weeks IV Abx from date of last (+) BC Follow temps Monitor progress
[2018-05-26] MEDS: DAPTOmycin Inj 700 MG in Sodium Chlor 0.9% Inj 100 ML IV.SIG SCH (13:25)
--- NOTE | 2018-05-26 13:29 | P.PNNP ---
Subjective Interval history: Patient lying in bed. Not in respiratory distress. Pleasant. Physical Exam Vital signs: Vital Signs 05/25/18 16:00 05/25/18 20:00 05/26/18 00:00 Temperature 97.9 F 97.9 F 97.9 F Pulse Rate 100 H 96 H 57 L Respiratory Rate 16 22 22 Blood Pressure 118/56 L 148/52 H 163/73 H Pulse Oximetry 100 94 L 93 L 05/26/18 04:00 05/26/18 08:00 05/26/18 09:00 Temperature 98.1 F 98.3 F Pulse Rate 105 H 96 H 96 H Respiratory Rate 22 20 Blood Pressure 151/64 H 167/68 H Pulse Oximetry 94 L 100 05/26/18 11:22 Temperature Pulse Rate 96 H Respiratory Rate Blood Pressure Pulse Oximetry Intake & Output 05/25/18 05/26/18 05/26/18 18:59 06:59 18:59 Intake Total 1100 / 1100 120 / 120 Output Total 1000 / 1000 Balance 100 / 100 120 / 120 Weight 62.8 kg Intake: Oral 1100 / 1100 120 / 120 Output: Hemodialysis Amount 1000 / 1000 Other: # Voids 0 Date of Last Bowel Movement 05/25/18 05/25/18 # Bowel Movements 2 Narrative: GENERAL: following commands today, SKIN: Focused skin assessment warm and dry. HEENT: PERRLA, EOMI. No scleral icterus or conjunctival pallor. No lid lag or facial droop. CARDIOVASCULAR: Regular rate and rhythm. Functional AV dialysis fistula left arm. Appears intact. RESPIRATORY: No obvious rhonchi or wheezing. Clear to auscultation. Breath sounds equal bilaterally. GASTROINTESTINAL: Abdomen soft, non-tender, nondistended. BS normal. MUSCULOSKELETAL: Extremities without clubbing, cyanosis, or edema. No obvious deformities. NEUROLOGICAL: Awake, alert, moving all limbs. Assessment and Plan - Assessment (1) ESRD (end stage renal disease) on dialysis Code(s): N18.6 - End stage renal disease; Z99.2 - Dependence on renal dialysis Status: Chronic Plan: Next hemodialysis session will be Wednesday and then subsequently . Medications should be adjusted for ESRD. Avoid gadolinium. (2) Bacteremia Code(s): R78.81 - Bacteremia Status: Acute Plan: Last set of blood cultures May 24, 2018 positive antibiotic therapy changed to Cubicin by infectious disease. Blood cultures are being repleted. Noted recommendation from infectious disease regarding 6 weeks of antibiotic therapy total from last negative culture. Fortunately AV dialysis fistula is working well and it appears we will be able to avoid new dialysis catheter placement. (3) Hypertension Code(s): I10 - Essential (primary) hypertension Status: Chronic Qualifiers: Hypertension type: essential hypertension Qualified Code(s): I10 - Essential (primary) hypertension Plan: Continue home regimen (4) Diabetes mellitus Code(s): E11.9 - Type 2 diabetes mellitus without complications Status: Acute Plan: Mgmt as per primary
--- NOTE | 2018-05-26 17:34 | P.PNIM ---
Subjective Interval history: 83yo m admitted with fever, and bacteremia related to dialysis catheter, sp removal of catheter, s/p dialysis yesterda pt seen and examined doing ok today denies sob, no cp, no nv Physical Exam Vital signs: Last Vital Signs Temp 97.4 F L 05/26/18 12:00 Pulse 77 05/26/18 12:00 Resp 20 05/26/18 12:00 BP 153/72 H 05/26/18 12:00 Pulse Ox 98 05/26/18 12:00 Intake & Output 05/24/18 05/25/18 05/26/18 05/27/18 06:59 06:59 06:59 06:59 Intake Total 1120 / 1120 580 / 580 1220 / 1220 Output Total 1000 / 1000 Balance 1120 / 1120 580 / 580 220 / 220 Weight 67.1 kg 67 kg 62.8 kg gen aaox2 nad pleasantly forgetful heart s1s2 reg irregular, mr no clicks lungs clear no wrr, full symmetric expansion abd soft nondt pos bs no mass ext - avf w access left arm w thrill, lower ext no edema no calf tenderness Results Labs CBC & Chem 7: 05/27/18 07:05 05/25/18 15:58 Labs: Microbiology 05/24/18 12:30 Blood - Other Aerobic Blood Culture - Final S. aureus MRSA 05/24/18 12:30 Blood - Other Anaerobic Blood Culture - Preliminary No growth in 2 days 05/24/18 08:00 Blood - Peripheral Aerobic Blood Culture - Preliminary No growth in 2 days 05/24/18 08:00 Blood - Peripheral Anaerobic Blood Culture - Final S. aureus MRSA 05/23/18 12:30 Blood - Peripheral Aerobic Blood Culture - Final S. aureus MRSA 05/23/18 12:30 Blood - Peripheral Anaerobic Blood Culture - Preliminary No growth in 3 days 05/21/18 14:45 Blood - Other Aerobic Blood Culture - Final S. aureus MRSA 05/21/18 14:45 Blood - Other Anaerobic Blood Culture - Final No growth in 5 days 05/21/18 14:45 Blood - Other Aerobic Blood Culture - Final S. aureus MRSA 05/21/18 14:45 Blood - Other Anaerobic Blood Culture - Final No growth in 5 days 05/24/18 12:20 Blood - Other Aerobic Blood Culture - Final S. aureus MRSA 05/24/18 12:20 Blood - Other Anaerobic Blood Culture - Preliminary Procedures Procedures: None Assessment and Plan (1) Encephalopathy: Code(s): G93.40 - Encephalopathy, unspecified Status: Acute (2) Sepsis: Code(s): A41.9 - Sepsis, unspecified organism Status: Acute (3) ESRD (end stage renal disease) on dialysis: Code(s): N18.6 - End stage renal disease; Z99.2 - Dependence on renal dialysis Status: Acute (4) Afib: Code(s): I48.91 - Unspecified atrial fibrillation Status: Acute Plan -ACUTE METABOLIC ENCEPHALOPATHY - sent to ER from SNF due to AMS/Fever/ tachycardia, probable Dementia, and Acute Sepsis, CT Head w/ no acute findings, images reviewed. improving to baseline, stable - SEPSIS/MRSA Bacteremia likely dialysis catheter related, poa, Temp 101.1, HR 114, WBC 23 down to 9.9, cont vanco per ID, s/p dialysis catheter removal. will need 6 wks iv abx w dialysis from last pos cultures - ESRD on HD: T//, dialysis today, cont per nephrology - A-FIB w RVR, chronic h/o pAfib on Cardizem, initially tachycardic w/ HR 114, likely compounded by sepsis, will resume home Cardizem, telemetry, monitor BP, high risk for ac due to risk of bleeding, cont rate control CHADs2- Vasc 8, high risk, aspirin -HTN/CHF by history, currently compensated and nml lvfx per echo /history of CVA /PAD hx -DM NIDDM- cont iss, diet, controlled -ANEMIA - chronic dz/ckd - stable -DISPOSITION - return to snf probably tomorrow w IV abx may likely be continued in dialysis when arranged DVT Prophylaxis: SCD/Teds Social work for d/c planning as needed Progress Note: Quality VTE Deep Vein Thrombosis/Pulmonary Embolism Present on Admission: No _ (1) Afib Qualifiers: Atrial fibrillation type: (2) Sepsis Qualifiers: Sepsis type:
[2018-05-27 07:49] LABS: Hematocrit 28.2 % (39.0-51.0); Hemoglobin 8.9 gm/dL (13.0-17.0); Mean Corpuscular HGB Conc 31.4 % (32.0-36.0); Mean Corpuscular Hemoglobin 23.2 pg (27.0-34.0); Mean Corpuscular Volume 73.9 fL (80.0-100.0); Mean Platelet Volume 7.9 fL (7.0-11.0); Platelet Count 353 th/mm3 (150-450); Red Blood Count 3.82 mil/mm3 (4.50-5.90); Red Cell Distribution Width 20.8 % (11.6-17.2); White Blood Count 15.1 th/mm3 (4.0-11.0)
[2018-05-27] MEDS: dilTIAZem 60 MG Tablet PO SCH ×4 (08:56→20:55)
[2018-05-27] MEDS: Allopurinol 100 MG Tablet PO SCH (08:56)
[2018-05-27] MEDS: Ferrous Sulfate 325 MG Tablet PO SCH (08:56)
[2018-05-27] MEDS: Senna/Docusate Sodium 8.6/50 MG Tablet PO SCH ×2 (08:56→20:55)
[2018-05-27] MEDS: CALCITRIOL PO SCH (08:58)
[2018-05-27] MEDS: Vitamin B Complex/Vit C/Folic Tablet PO SCH (09:01)
[2018-05-27] MEDS: Sodium Chloride 0.9% 2 ML Flush BID IV.FLUSH SCH ×2 (09:03→20:56)
[2018-05-27 09:13] LABS: Acanthocytes Occ; Eosinophils 6 % (0-4); Lymphocytes 12 % (9-44); Monocytes 7 % (0-8); Ovalocytes 1+; Platelet Estimate Normal (Normal); Platelet Morphology Normal (Normal); Target Cells 1+
--- NOTE | 2018-05-27 12:01 | P.PNNP ---
Subjective Interval history: Pt seen laying comfortably in bed. Somewhat withdrawn, but does speak when spoken to. Voices no specific complaints. Physical Exam Vital signs: Vital Signs 05/26/18 12:00 05/26/18 16:00 05/26/18 20:00 Temperature 97.4 F L 97.9 F 98.3 F Pulse Rate 77 105 H 75 Respiratory Rate 20 20 18 Blood Pressure 153/72 H 158/71 H 148/67 H Pulse Oximetry 98 99 99 05/27/18 00:00 05/27/18 04:00 05/27/18 08:00 Temperature 98.0 F 97.8 F 98.0 F Pulse Rate 113 H 125 H 121 H Respiratory Rate 20 20 17 Blood Pressure 165/68 H 168/73 H 110/67 Pulse Oximetry 96 93 L 90 L Intake & Output 05/26/18 05/27/18 05/27/18 18:59 06:59 18:59 Intake Total 700 / 700 250 / 250 Balance 700 / 700 250 / 250 Weight 64.5 kg Intake: IV 100 / 100 250 / 250 Cubicin Inj 700 MG In NS Inj 100 / 100 100 ML @ 200 mls/hr IV.SIG Q48H [facility] Rx#:[id number] Oral 600 / 600 Other: # Voids 3 1 Date of Last Bowel Movement 05/26/18 # Bowel Movements 1 - Constitutional no acute distress - Routine HEENT Exam Head: Present: normocephalic - Routine Neck Exam Present: supple - Routine Respiratory Exam Present: CTA bilaterally - Routine Cardiovascular Exam Present: S1, S2, irregularly irregular - Routine Abdominal Exam Present: soft - Routine Extremities Exam Absent: edema - Routine Neurological Exam Present: alert Assessment and Plan - Assessment (1) ESRD (end stage renal disease) on dialysis Code(s): N18.6 - End stage renal disease; Z99.2 - Dependence on renal dialysis Status: Chronic Plan: Continue HD TTS AVG working well, but noted per treasury accountant that dark blood. Will start on daily ASA Medications should be adjusted for ESRD. Avoid gadolinium. (2) Bacteremia Code(s): R78.81 - Bacteremia Status: Acute Plan: On Cubicin per ID. BCx drawn 05/26 neg x24h. Drawn 05/27 as well. Recommended 6 weeks of antibiotic therapy total from last negative culture per ID. (3) Hypertension Code(s): I10 - Essential (primary) hypertension Status: Chronic Qualifiers: Hypertension type: essential hypertension Qualified Code(s): I10 - Essential (primary) hypertension Plan: BP elevated earlier in day, but improved this afternoon. Monitor for the present and consider adding on Losartan 25mg QD if needed. (4) Diabetes mellitus Code(s): E11.9 - Type 2 diabetes mellitus without complications Status: Acute Plan: Mgmt as per primary
--- NOTE | 2018-05-27 12:13 | P.PNID ---
Subjective Remarks: Patient is an 83-year-old male, resides in the long-term, brought into the hospital for evaluation of lethargy, fever and tachycardia. Patient has ESRD, and gets hemodialysis. He currently has a permacath. He underwent placement of an AV graft last April 11. He gets hemodialysis every Wednesday, , and Wednesday. 2 blood cultures done in the emergency room are now reported as growing gram-positive cocci, and possible MRSA. Patient received Vanco and Zosyn in the emergency room. Patient at the time my exam is currently undergoing hemodialysis. They are having problem using the AV graft in the left upper extremity, and actively using both permacath and AV graft for his current hemodialysis. Highest temperature has been 101. His WBC is elevated at 24,000. There is no mention of any other problem in the long-term. There is been no cough or congestion, nausea or vomiting, abdominal pain, or diarrhea. Infectious disease consultation has been requested to assist with evaluation and treatment of his bacteremia. Notes reviewed Temps ok Has new (+) BC 05/24 Permacath removed 05/23 WBC down to normal Echo ok, no vegetation seen Antibiotics: Cubicin Lines: Permacath Past Medical History: AVF (arteriovenous fistula) (Acute) Hemodialysis access, AV graft Arteriovenous fistula CHF (congestive heart failure) Dementia ESRD (end stage renal disease) on dialysis History of CVA (cerebrovascular accident) Hypertension Peripheral vascular disease Type 2 diabetes mellitus with other diabetic kidney complication Allergies/Adverse Reactions: Allergies No Known Allergies Allergy (Unknown, Uncoded 04/11/18 11:44) n/a Objective Vital Signs 05/26/18 16:00 05/26/18 20:00 05/27/18 00:00 Temperature 97.9 F 98.3 F 98.0 F Pulse Rate 105 H 75 113 H Respiratory Rate 20 18 20 Blood Pressure 158/71 H 148/67 H 165/68 H Pulse Oximetry 99 99 96 05/27/18 04:00 05/27/18 08:00 Temperature 97.8 F 98.0 F Pulse Rate 125 H 121 H Respiratory Rate 20 17 Blood Pressure 168/73 H 110/67 Pulse Oximetry 93 L 90 L Intake & Output 05/26/18 05/27/18 05/27/18 18:59 06:59 18:59 Intake Total 700 / 700 250 / 250 Balance 700 / 700 250 / 250 Weight 64.5 kg Intake: IV 100 / 100 250 / 250 Cubicin Inj 700 MG In NS Inj 100 / 100 100 ML @ 200 mls/hr IV.SIG Q48H [facility] Rx#:[id number] Oral 600 / 600 Other: # Voids 3 1 Date of Last Bowel Movement 05/26/18 # Bowel Movements 1 05/26/18 13:10 Blood - Peripheral Aerobic Blood Culture - Preliminary No growth in 1 day 05/26/18 13:10 Blood - Peripheral Anaerobic Blood Culture - Preliminary No growth in 1 day 05/24/18 12:30 Blood - Other Aerobic Blood Culture - Final S. aureus MRSA 05/24/18 12:30 Blood - Other Anaerobic Blood Culture - Preliminary No growth in 3 days 05/24/18 08:00 Blood - Peripheral Aerobic Blood Culture - Preliminary No growth in 3 days 05/24/18 08:00 Blood - Peripheral Anaerobic Blood Culture - Final S. aureus MRSA 05/23/18 12:30 Blood - Peripheral Aerobic Blood Culture - Final S. aureus MRSA 05/23/18 12:30 Blood - Peripheral Anaerobic Blood Culture - Preliminary No growth in 4 days 05/24/18 12:20 Blood - Other Aerobic Blood Culture - Final S. aureus MRSA 05/24/18 12:20 Blood - Other Anaerobic Blood Culture - Preliminary 05/27/18 07:05 Blood - Peripheral Aerobic Blood Culture - Pending 05/27/18 07:05 Blood - Peripheral Anaerobic Blood Culture - Pending 05/21/18 14:45 Blood - Other Aerobic Blood Culture - Final S. aureus MRSA 05/21/18 14:45 Blood - Other Anaerobic Blood Culture - Final No growth in 5 days 05/21/18 14:45 Blood - Other Aerobic Blood Culture - Final S. aureus MRSA 05/21/18 14:45 Blood - Other Anaerobic Blood Culture - Final No growth in 5 days Lab - Hematology Results 05/27/18 07:05 WBC 15.1 H RBC 3.82 L Hgb 8.9 L Hct 28.2 L MCV 73.9 L MCH 23.2 L MCHC 31.4 L RDW 20.8 H Plt Count 353 D MPV 7.9 Prelim Diff (Auto) Manual diff required WBC Differential Manual diff final Seg Neuts % (Manual) 69 Band Neuts % (Manual) 5 Lymphocytes % (Manual) 12 Monocytes % (Manual) 7 Eosinophils % (Manual) 6 H Basophils % (Manual) 1 Abs Neuts (Manual) 11.2 H Differential Comment . Platelet Estimate Normal Platelet Morphology Normal Target Cells 1+ H Ovalocytes 1+ H Acanthocytes (Spur) Occ H Keratocytes Occ H Lab - Chemistry Results 05/25/18 15:58 Sodium 138 Potassium 3.6 Chloride 97 L Carbon Dioxide 34.2 H Anion Gap 7 BUN 29 H Creatinine 5.32 H Estimated GFR 13 L Random Glucose 156 H Calcium 8.9 Imaging: ITS Impressions Chest X-Ray 05/20/18 18:07 CONCLUSION: 1. Right subclavian central venous catheter in place. No evidence of pneumothorax. 2. Pulmonary vascular congestion/mild pulmonary edema. Head CT 05/20/18 18:07 CONCLUSION: 1. No acute findings in the brain. . Upper Extremity Ultrasound 05/21/18 00:00 CONCLUSION: 1. No focal fluid collections adjacent to the patent AV fistula. Tube Removal 05/23/18 00:00 CONCLUSION: 1. Uncomplicated Permcath removal. Physical Exam: GENERAL: awake and alert, NAD SKIN: Warm and dry. No generalized rash EYES: [place] conjunctiva. No petechia or hemorrhage. Pupils equal, round and reactive to light. Extraocular movements full and intact. No scleral icterus. No injection or drainage. EARS, NOSE AND THROAT: Nose without bleeding or purulent nasal discharge. No sinus tenderness. Mucous membranes pink and moist. No oral lesions noted. No exudate. No oral thrush. NECK: Trachea midline. Supple and not tender, no meningeal signs CARDIOVASCULAR: Regular rate and rhythm. No murmurs, rubs or gallops heard. Permacath R upper chest site dry, no discharge, no redness, no tenderness at tunnel, no induration, no swelling. RESPIRATORY: Clear to auscultation. Breath sounds equal bilaterally. No rales , wheezing or rhonchi ABDOMEN: Soft, non-tender, nondistended. Bowel sounds present and normoactive. No guarding. No rebound. No organomegaly. EXTREMITIES: No clubbing, cyanosis, or edema. No joint effusion, has good ROM. No calf tenderness. Well perfused and warm. LUE AVG no redness or induration or tenderness NEUROLOGICAL: Awake and alert. No facial asymmetry. Moves all extremities PSYCHIATRIC: calm and cooperative. LINE: No evidence of infection Assessment and Plan - Plan Impression Sepsis, MRSA, high grade - possibly the HD cath - Permacath removed 05/23 Encephalopathy due to sepsis ESRD, on HD TTHSA Fevers and leukocytosis due to sepsis, better Recommendation Follow epeat BC Continue IV Cubicin Will need 6 weeks IV Abx from date of last (+) BC Follow temps Monitor progress
--- NOTE | 2018-05-27 16:37 | P.PNIM ---
Subjective Interval history: 83yo m admitted with fever, and bacteremia related to dialysis catheter, sp removal of catheter, he remains afebrile and awaiting final culture results for discharge planning. Pt seen doing ok, no specific complaints, denies sob, no cp, no [place], no fever Physical Exam Vital signs: Last Vital Signs Temp 98.7 F 05/27/18 12:00 Pulse 114 H 05/27/18 12:00 Resp 17 05/27/18 12:00 BP 139/61 05/27/18 12:00 Pulse Ox 99 05/27/18 12:00 Intake & Output 05/25/18 05/26/18 05/27/18 05/28/18 06:59 06:59 06:59 06:59 Intake Total 580 / 580 1220 / 1220 950 / 950 Output Total 1000 / 1000 Balance 580 / 580 220 / 220 950 / 950 Weight 67 kg 64.5 kg 64.5 kg gen aaox2 nad pleasantly forgetful, somewhat flat affect heart s1s2 reg irregular, mr no clicks lungs clear no wrr, full symmetric expansion abd soft nondt pos bs no mass ext - avf w access left arm w thrill, lower ext no edema no calf tenderness Results Labs CBC & Chem 7: 05/27/18 07:05 05/25/18 15:58 Labs: Microbiology 05/26/18 13:10 Blood - Peripheral Aerobic Blood Culture - Preliminary No growth in 1 day 05/26/18 13:10 Blood - Peripheral Anaerobic Blood Culture - Preliminary No growth in 1 day 05/24/18 12:30 Blood - Other Aerobic Blood Culture - Final S. aureus MRSA 05/24/18 12:30 Blood - Other Anaerobic Blood Culture - Preliminary No growth in 3 days 05/24/18 08:00 Blood - Peripheral Aerobic Blood Culture - Preliminary No growth in 3 days 05/24/18 08:00 Blood - Peripheral Anaerobic Blood Culture - Final S. aureus MRSA 05/23/18 12:30 Blood - Peripheral Aerobic Blood Culture - Final S. aureus MRSA 05/23/18 12:30 Blood - Peripheral Anaerobic Blood Culture - Preliminary No growth in 4 days 05/24/18 12:20 Blood - Other Aerobic Blood Culture - Final S. aureus MRSA 05/24/18 12:20 Blood - Other Anaerobic Blood Culture - Preliminary Procedures Procedures: None Assessment and Plan (1) Encephalopathy: Code(s): G93.40 - Encephalopathy, unspecified Status: Acute (2) Sepsis: Code(s): A41.9 - Sepsis, unspecified organism Status: Acute (3) ESRD (end stage renal disease) on dialysis: Code(s): N18.6 - End stage renal disease; Z99.2 - Dependence on renal dialysis Status: Acute (4) Afib: Code(s): I48.91 - Unspecified atrial fibrillation Status: Acute Plan -ACUTE METABOLIC ENCEPHALOPATHY - sent to ER from SNF due to AMS/Fever/ tachycardia, probable Dementia, and Acute Sepsis, CT Head w/ no acute findings, images reviewed. improving to baseline, stable - SEPSIS/MRSA Bacteremia likely dialysis catheter related, poa, fever improved , on daptomycin iv q 48hrs post dialysis, post dialysis catheter removal. will need 6 wks iv abx w dialysis from last pos cultures - ESRD on HD: T//S, dialysis today, cont per nephrology - A-FIB w RVR, chronic h/o pAfib on Cardizem, initially tachycardic w/ HR 114, likely compounded by sepsis, continue home Cardizem, telemetry, monitor BP, high risk for ac due to risk of bleeding, cont rate control CHADs2-Vasc 8, high risk, start aspirin -HTN/CHF by history, currently compensated and nml lvfx per echo /history of CVA /PAD hx / DYSLIPIDEMIA - cont home meds -DM NIDDM- cont iss, diet, controlled -ANEMIA - chronic dz/ckd - stable -DISPOSITION - return to snf w IV abx may likely be continued in dialysis when ok w ID DVT Prophylaxis: SCD/Teds Social work for d/c planning as needed Progress Note: Quality VTE Deep Vein Thrombosis/Pulmonary Embolism Present on Admission: No _ (1) Afib Qualifiers: Atrial fibrillation type: (2) Sepsis Qualifiers: Sepsis type:
[2018-05-28 07:44] LABS: Hemoglobin 8.1 gm/dL (13.0-17.0); Mean Corpuscular HGB Conc 32.5 % (32.0-36.0); Mean Corpuscular Hemoglobin 23.6 pg (27.0-34.0); Mean Corpuscular Volume 72.6 fL (80.0-100.0); Mean Platelet Volume 7.6 fL (7.0-11.0); Platelet Count 348 th/mm3 (150-450); Red Blood Count 3.44 mil/mm3 (4.50-5.90); Red Cell Distribution Width 20.5 % (11.6-17.2); White Blood Count 10.6 th/mm3 (4.0-11.0)
[2018-05-28 08:08] LABS: Albumin 2.4 g/dL (3.4-5.0); Calcium 9.4 mg/dL (8.5-10.1); Carbon Dioxide 27.2 meq/L (21.0-32.0); Phosphorus 8.5 mg/dL (2.5-4.9); Potassium 4.5 meq/L (3.5-5.1)
[2018-05-28 10:18] LABS: Eosinophils 2 % (0-4); Lymphocytes 10 % (9-44); Metamyelocytes 1 % (0-1); Monocytes 3 % (0-8)
[2018-05-28 10:19] LABS: Acanthocytes Occ; Ovalocytes 1+; Platelet Estimate Normal (Normal); Platelet Morphology Normal (Normal); Target Cells 2+
[2018-05-28] MEDS: dilTIAZem 60 MG Tablet PO SCH ×5 (13:44→20:40)
[2018-05-28] MEDS: Ferrous Sulfate 325 MG Tablet PO SCH (13:53)
[2018-05-28] MEDS: Allopurinol 100 MG Tablet PO SCH ×2 (13:54→13:58)
[2018-05-28] MEDS: Senna/Docusate Sodium 8.6/50 MG Tablet PO SCH ×2 (13:55→20:40)
[2018-05-28] MEDS: Vitamin B Complex/Vit C/Folic Tablet PO SCH (13:55)
[2018-05-28] MEDS: DAPTOmycin Inj 700 MG in Sodium Chlor 0.9% Inj 100 ML IV.SIG SCH (13:57)
[2018-05-28] MEDS: Sodium Chloride 0.9% 2 ML Flush BID IV.FLUSH SCH ×2 (13:58→20:40)
--- NOTE | 2018-05-28 16:12 | P.PNNP ---
Subjective Interval history: Patient awake and responding to simple questions. Physical Exam Vital signs: Vital Signs 05/27/18 20:00 05/28/18 00:00 05/28/18 04:00 Temperature 98.8 F 98.3 F 98.2 F Pulse Rate 75 74 74 Respiratory Rate 18 18 18 Blood Pressure 129/60 134/59 L 127/58 L Pulse Oximetry 100 99 97 05/28/18 08:00 Temperature 98.3 F Pulse Rate 80 Respiratory Rate 18 Blood Pressure 120/58 L Pulse Oximetry 99 Intake & Output 05/27/18 05/28/18 05/28/18 18:59 06:59 18:59 Intake Total 1200 / 1200 Output Total 0 / 0 3000 / 3000 Balance 1200 / 1200 -3000 / -3000 Weight 66.6 kg Intake: Oral 1200 / 1200 Output: Urine 0 / 0 Hemodialysis Amount 3000 / 3000 Other: # Voids 2 Date of Last Bowel Movement 05/26/18 # Bowel Movements 1 Narrative: GENERAL: No acute distress. SKIN: Focused skin assessment warm and dry. HEENT: PERRLA, EOMI. No scleral icterus or conjunctival pallor. CARDIOVASCULAR: Regular rate and rhythm. RESPIRATORY: No obvious rhonchi or wheezing. Clear to auscultation. GASTROINTESTINAL: Abdomen soft, non-tender, nondistended. BS normal. MUSCULOSKELETAL: Extremities without clubbing, cyanosis, or edema. NEUROLOGICAL: Awake, alert, No focal neurologic deficits. Assessment and Plan - Assessment (1) ESRD (end stage renal disease) on dialysis Code(s): N18.6 - End stage renal disease; Z99.2 - Dependence on renal dialysis Status: Chronic Plan: Completed dialysis today. Continue HD TTS AVG working well, Medications should be adjusted for ESRD. Avoid gadolinium. (2) Bacteremia Code(s): R78.81 - Bacteremia Status: Acute Plan: On Cubicin per ID. Await conversion of blood cultures negative. Recommended 6 weeks of antibiotic therapy total from last negative culture per ID. (3) Hypertension Code(s): I10 - Essential (primary) hypertension Status: Chronic Qualifiers: Hypertension type: essential hypertension Qualified Code(s): I10 - Essential (primary) hypertension Plan: BP elevated earlier in day, but improved this afternoon. Monitor for the present and consider adding on Losartan 25mg QD if needed. (4) Diabetes mellitus Code(s): E11.9 - Type 2 diabetes mellitus without complications Status: Acute Plan: Mgmt as per primary
--- NOTE | 2018-05-28 19:04 | P.PNIM ---
Subjective Interval history: 83yo m admitted with fever, and bacteremia related to dialysis catheter, +MRSA, sp removal of catheter, he remains afebrile and awaiting final culture results for discharge planning. Pt seen doing ok, no specific complaints, denies sob, no cp, no [place], no fev, tolerating diet, had dialysis today, liudmila well. Physical Exam Vital signs: Last Vital Signs Temp 97.8 F 05/28/18 16:00 Pulse 78 05/28/18 16:00 Resp 16 05/28/18 16:00 BP 114/55 L 05/28/18 16:00 Pulse Ox 98 05/28/18 16:00 Intake & Output 05/26/18 05/27/18 05/28/18 05/29/18 06:59 06:59 06:59 06:59 Intake Total 1220 / 1220 950 / 950 1200 / 1200 900 / 900 Output Total 1000 / 1000 0 / 0 3000 / 3000 Balance 220 / 220 950 / 950 1200 / 1200 -2100 / -2100 Weight 64.5 kg 64.5 kg 66.6 kg gen aaox2 nad pleasant, forgetful and sometimes confused, somewhat flat affect heart s1s2 reg irregular, mr no clicks lungs clear no wrr, full symmetric expansion abd soft nondt pos bs no mass ext - avf w access left arm w thrill, lower ext no edema no calf tenderness Results Labs CBC & Chem 7: 05/28/18 07:21 05/28/18 07:21 Labs: Microbiology 05/24/18 12:20 Blood - Other Aerobic Blood Culture - Final S. aureus MRSA 05/24/18 12:20 Blood - Other Anaerobic Blood Culture - Preliminary 05/27/18 07:05 Blood - Peripheral Aerobic Blood Culture - Preliminary gram positive cocci 05/27/18 07:05 Blood - Peripheral Anaerobic Blood Culture - Preliminary No growth in 1 day 05/26/18 13:10 Blood - Peripheral Aerobic Blood Culture - Preliminary No growth in 2 days 05/26/18 13:10 Blood - Peripheral Anaerobic Blood Culture - Preliminary No growth in 2 days 05/24/18 12:30 Blood - Other Aerobic Blood Culture - Final S. aureus MRSA 05/24/18 12:30 Blood - Other Anaerobic Blood Culture - Preliminary No growth in 4 days 05/24/18 08:00 Blood - Peripheral Aerobic Blood Culture - Preliminary No growth in 4 days 05/24/18 08:00 Blood - Peripheral Anaerobic Blood Culture - Final S. aureus MRSA 05/23/18 12:30 Blood - Peripheral Aerobic Blood Culture - Final S. aureus MRSA 05/23/18 12:30 Blood - Peripheral Anaerobic Blood Culture - Final No growth in 5 days Imaging Imaging: ECHO CONCLUSIONS Normal left ventricular size. Wall thickness is normal. The left ventricular systolic function is normal with an estimated ejection fraction in the range of 55-60%. The left atrial size is mildly dilated. [id number] mitral valve regurgitation. Diffuse calcification of the aortic valve. The estimated pulmonary arterial pressure is 61 mmHg There is estimated moderate pulmonary hypertension present Procedures Procedures: None Assessment and Plan (1) Encephalopathy: Code(s): G93.40 - Encephalopathy, unspecified Status: Acute (2) Sepsis: Code(s): A41.9 - Sepsis, unspecified organism Status: Acute (3) ESRD (end stage renal disease) on dialysis: Code(s): N18.6 - End stage renal disease; Z99.2 - Dependence on renal dialysis Status: Acute (4) Afib: Code(s): I48.91 - Unspecified atrial fibrillation Status: Acute Plan -ACUTE METABOLIC ENCEPHALOPATHY - sent to ER from SNF due to AMS/Fever/ tachycardia, probable underlying Dementia, and Acute Sepsis, CT Head w/ no acute findings, images reviewed. improving to baseline, stable - SEPSIS/MRSA Bacteremia likely dialysis catheter related, poa, fever improved , on daptomycin iv q 48hrs post dialysis, post dialysis catheter removal. will need 6 wks iv abx w dialysis from last pos cultures - ESRD on HD: T//S, dialysis today, cont per nephrology - A-FIB w RVR, chronic h/o pAfib on Cardizem, initially tachycardic w/ HR 114, likely compounded by sepsis, continue home Cardizem, telemetry, monitor BP, high risk for ac due to risk of bleeding, cont rate control CHADs2-Vasc 8, high risk, start aspirin -HTN/CHF by history, currently compensated and nml lvfx per echo /history of CVA /PAD hx / DYSLIPIDEMIA - cont home meds -DM NIDDM- cont iss, diet, controlled -ANEMIA - chronic dz/ckd - mild drop in hh, monitor, transfuse as needed. -DISPOSITION - return to snf w IV abx may likely be continued in dialysis when ok w ID DVT Prophylaxis: SCD/Teds Social work for d/c planning as needed Progress Note: Quality VTE Deep Vein Thrombosis/Pulmonary Embolism Present on Admission: No _ (1) Sepsis Qualifiers: Sepsis type: (2) Afib Qualifiers: Atrial fibrillation type:
[2018-05-29 08:11] LABS: Baso # (Auto) 0.1 th/mm3 (0.0-0.2); Eos # (Auto) 0.3 th/mm3 (0.0-0.4); Eos % (Auto) 2.9 % (0.0-4.0); Hematocrit 29.4 % (39.0-51.0); Hemoglobin 9.3 gm/dL (13.0-17.0); Lymph # (Auto) 0.6 th/mm3 (1.0-4.8); Lymph % (Auto) 5.6 % (9.0-44.0); Mean Corpuscular HGB Conc 31.6 % (32.0-36.0); Mean Corpuscular Hemoglobin 23.7 pg (27.0-34.0); Mean Corpuscular Volume 74.9 fL (80.0-100.0); Mean Platelet Volume 7.9 fL (7.0-11.0); Mono # (Auto) 0.9 th/mm3 (0.0-0.9); Mono % (Auto) 8.7 % (0.0-8.0); Neut # (Auto) 8.2 th/mm3 (1.8-7.7); Neut % (Auto) 81.8 % (16.0-70.0); Platelet Count 405 th/mm3 (150-450); Red Blood Count 3.92 mil/mm3 (4.50-5.90); Red Cell Distribution Width 20.9 % (11.6-17.2)
[2018-05-29] MEDS: Ferrous Sulfate 325 MG Tablet PO SCH (09:38)
[2018-05-29] MEDS: Vitamin B Complex/Vit C/Folic Tablet PO SCH (09:38)
[2018-05-29] MEDS: dilTIAZem 60 MG Tablet PO SCH ×5 (09:38→20:41)
[2018-05-29] MEDS: Allopurinol 100 MG Tablet PO SCH (09:39)
[2018-05-29] MEDS: Senna/Docusate Sodium 8.6/50 MG Tablet PO SCH ×2 (09:39→20:44)
[2018-05-29] MEDS: Sodium Chloride 0.9% 2 ML Flush BID IV.FLUSH SCH ×2 (09:39→20:44)
[2018-05-29 10:29] LABS: Ovalocytes 1+; Platelet Estimate Normal (Normal); Target Cells 2+
--- NOTE | 2018-05-29 15:05 | P.PNNP ---
Subjective Interval history: Patient pleasantly confused. No complaints. Physical Exam Vital signs: Vital Signs 05/28/18 16:00 05/28/18 20:00 05/29/18 00:00 Temperature 97.8 F 99.6 F 98.9 F Pulse Rate 78 119 H 74 Respiratory Rate 16 18 18 Blood Pressure 114/55 L 104/52 L 97/54 L Pulse Oximetry 98 92 L 94 L 05/29/18 00:04 05/29/18 04:00 05/29/18 07:52 Temperature 98.5 F 98.2 F Pulse Rate 73 100 H 95 H Respiratory Rate 18 18 Blood Pressure 112/58 L 102/54 L Pulse Oximetry 99 96 05/29/18 12:00 Temperature 98.7 F Pulse Rate 92 H Respiratory Rate 18 Blood Pressure 107/57 L Pulse Oximetry 100 Intake & Output 05/28/18 05/29/18 05/29/18 18:59 06:59 18:59 Intake Total 900 / 900 120 / 120 720 / 720 Output Total 3000 / 3000 Balance -2100 / -2100 120 / 120 720 / 720 Weight 64.1 kg Intake: IV 100 / 100 Cubicin Inj 700 MG In NS Inj 100 / 100 100 ML @ 200 mls/hr IV.SIG Q48H [facility] Rx#:[id number] Oral 800 / 800 120 / 120 720 / 720 Output: Hemodialysis Amount 3000 / 3000 Other: # Voids 3 2 # Bowel Movements 1 Narrative: GENERAL: No acute distress. SKIN: Focused skin assessment warm and dry. HEENT: PERRLA, EOMI. No scleral icterus or conjunctival pallor. CARDIOVASCULAR: Regular rate and rhythm. RESPIRATORY: No obvious rhonchi or wheezing. Clear to auscultation. GASTROINTESTINAL: Abdomen soft, non-tender, nondistended. BS normal. MUSCULOSKELETAL: Extremities without clubbing, cyanosis, or edema. NEUROLOGICAL: Awake, alert, No focal neurologic deficits. Assessment and Plan - Assessment (1) ESRD (end stage renal disease) on dialysis Code(s): N18.6 - End stage renal disease; Z99.2 - Dependence on renal dialysis Status: Chronic Plan: Completed dialysis today. Continue HD TTS AVG working well, Medications should be adjusted for ESRD. Avoid gadolinium. (2) Bacteremia Code(s): R78.81 - Bacteremia Status: Acute Plan: On Cubicin per ID. Await conversion of blood cultures negative. Blood culture dated the still positive. Recommended 6 weeks of antibiotic therapy total from last negative culture per ID. (3) Hypertension Code(s): I10 - Essential (primary) hypertension Status: Chronic Qualifiers: Hypertension type: essential hypertension Qualified Code(s): I10 - Essential (primary) hypertension Plan: BP elevated earlier in day, but improved this afternoon. Monitor for the present and consider adding on Losartan 25mg QD if needed. (4) Diabetes mellitus Code(s): E11.9 - Type 2 diabetes mellitus without complications Status: Acute Plan: Mgmt as per primary
--- NOTE | 2018-05-29 18:33 | P.PNIM ---
Subjective Interval history: 83yo m admitted with fever, and bacteremia related to dialysis catheter, sp removal of catheter, he remains afebrile and awaiting final culture results for discharge planning. Pt seen doing ok, lying in bed watching tv with no complaints, denies sob or cp , no nv Physical Exam Vital signs: Last Vital Signs Temp 98 F 05/29/18 16:00 Pulse 97 H 05/29/18 16:00 Resp 20 05/29/18 16:00 BP 137/62 05/29/18 16:00 Pulse Ox 100 05/29/18 16:00 Intake & Output 05/27/18 05/28/18 05/29/18 05/30/18 06:59 06:59 06:59 06:59 Intake Total 950 / 950 1200 / 1200 1020 / 1020 960 / 960 Output Total 0 / 0 3000 / 3000 Balance 950 / 950 1200 / 1200 -1979 / -1979 960 / 960 Weight 64.5 kg 66.6 kg 64.1 kg wdwn elderly aam nad aaox2 flat affect heart s1s2 reg irreg lungs clear no wrr abd soft nondt pos bs ext no edema no clubbing no cyanosis Results Labs CBC & Chem 7: 05/29/18 07:04 05/28/18 07:21 Labs: Microbiology 05/27/18 07:05 Blood - Peripheral Aerobic Blood Culture - Preliminary S. aureus MRSA 05/27/18 07:05 Blood - Peripheral Anaerobic Blood Culture - Preliminary No growth in 2 days 05/26/18 13:10 Blood - Peripheral Aerobic Blood Culture - Preliminary No growth in 3 days 05/26/18 13:10 Blood - Peripheral Anaerobic Blood Culture - Preliminary No growth in 3 days 05/24/18 12:30 Blood - Other Aerobic Blood Culture - Final S. aureus MRSA 05/24/18 12:30 Blood - Other Anaerobic Blood Culture - Final No growth in 5 days 05/24/18 08:00 Blood - Peripheral Aerobic Blood Culture - Final No growth in 5 days 05/24/18 08:00 Blood - Peripheral Anaerobic Blood Culture - Final S. aureus MRSA 05/24/18 12:20 Blood - Other Aerobic Blood Culture - Final S. aureus MRSA 05/24/18 12:20 Blood - Other Anaerobic Blood Culture - Final Procedures Procedures: None Assessment and Plan (1) Encephalopathy: Code(s): G93.40 - Encephalopathy, unspecified Status: Acute (2) Sepsis: Code(s): A41.9 - Sepsis, unspecified organism Status: Acute (3) ESRD (end stage renal disease) on dialysis: Code(s): N18.6 - End stage renal disease; Z99.2 - Dependence on renal dialysis Status: Acute (4) Afib: Code(s): I48.91 - Unspecified atrial fibrillation Status: Acute Plan -ACUTE METABOLIC ENCEPHALOPATHY - sent to ER from SNF due to AMS/Fever/ tachycardia, probable underlying Dementia, and Acute Sepsis, CT Head w/ no acute findings, images reviewed. improving to baseline, stable - SEPSIS/MRSA Bacteremia likely dialysis catheter related, poa, fever improved , on daptomycin iv q 48hrs post dialysis, post dialysis catheter removal. will need 6 wks iv abx w dialysis from last pos cultures, awaiting Id ok for dc planning - ESRD on HD: T//S, dialysis today, cont per nephrology - A-FIB w RVR, chronic h/o pAfib on Cardizem, initially tachycardic w/ HR 114, likely compounded by sepsis, continue home Cardizem, telemetry, monitor BP, high risk for ac due to risk of bleeding, cont rate control CHADs2-Vasc 8, high risk, but reported hx GIB, and anemia will cont asa only -HTN/CHF by history, currently compensated and nml lvfx per echo /history of CVA /PAD hx / DYSLIPIDEMIA - cont home meds -DM NIDDM- cont iss, diet, controlled -ANEMIA - chronic dz/ckd - mild drop in hh, monitor, transfuse as needed. -DISPOSITION - return to snf w IV abx may likely be continued in dialysis when ok w ID DVT Prophylaxis: SCD/Teds Progress Note: Quality VTE Deep Vein Thrombosis/Pulmonary Embolism Present on Admission: No _ (1) Sepsis Qualifiers: Sepsis type: (2) Afib Qualifiers: Atrial fibrillation type:
--- NOTE | 2018-05-29 22:23 | P.PN ---
Subjective Interval history: NOT seen Physical Exam Vital signs: Vital Signs 05/29/18 00:00 05/29/18 00:04 05/29/18 04:00 Temperature 98.9 F 98.5 F Pulse Rate 74 73 100 H Respiratory Rate 18 18 Blood Pressure 97/54 L 112/58 L Pulse Oximetry 94 L 99 05/29/18 07:52 05/29/18 12:00 05/29/18 16:00 Temperature 98.2 F 98.7 F 98 F Pulse Rate 95 H 92 H 97 H Respiratory Rate 18 18 20 Blood Pressure 102/54 L 107/57 L 137/62 Pulse Oximetry 96 100 100 05/29/18 20:00 Temperature 98.0 F Pulse Rate 96 H Respiratory Rate 18 Blood Pressure 116/55 L Pulse Oximetry 100 Intake & Output 05/29/18 05/29/18 05/30/18 06:59 18:59 06:59 Intake Total 120 / 120 960 / 960 Balance 120 / 120 960 / 960 Weight 64.1 kg Intake: Oral 120 / 120 960 / 960 Other: # Voids 2 # Bowel Movements 1 Narrative: wdwn elderly aam nad aaox2 flat affect heart s1s2 reg irreg lungs clear no wrr abd soft nondt pos bs ext no edema no clubbing no cyanosis Results - Labs CBC & Chem 7: 05/29/18 07:04 05/28/18 07:21 Laboratory Results - last 24 hr 05/29/18 07:04 WBC 10.0 RBC 3.92 L Hgb 9.3 L Hct 29.4 L MCV 74.9 L MCH 23.7 L MCHC 31.6 L RDW 20.9 H Plt Count 405 MPV 7.9 Prelim Diff (Auto) Slide review pending Neut % (Auto) 81.8 H Lymph % (Auto) 5.6 L [place] % (Auto) 8.7 H Eos % (Auto) 2.9 Baso % (Auto) 1.0 Neut # (Auto) 8.2 H Lymph # (Auto) 0.6 L [place] # (Auto) 0.9 Eos # (Auto) 0.3 Baso # (Auto) 0.1 WBC Differential . Diff Scan Auto diff confirmed Differential Comment . Platelet Estimate Normal Platelet Morphology Enlarged H Target Cells 2+ H Ovalocytes 1+ H Microbiology 05/27/18 07:05 Blood - Peripheral Aerobic Blood Culture - Preliminary S. aureus MRSA 05/27/18 07:05 Blood - Peripheral Anaerobic Blood Culture - Preliminary No growth in 2 days 05/26/18 13:10 Blood - Peripheral Aerobic Blood Culture - Preliminary No growth in 3 days 05/26/18 13:10 Blood - Peripheral Anaerobic Blood Culture - Preliminary No growth in 3 days 05/24/18 12:30 Blood - Other Aerobic Blood Culture - Final S. aureus MRSA 05/24/18 12:30 Blood - Other Anaerobic Blood Culture - Final No growth in 5 days 05/24/18 08:00 Blood - Peripheral Aerobic Blood Culture - Final No growth in 5 days 05/24/18 08:00 Blood - Peripheral Anaerobic Blood Culture - Final S. aureus MRSA 05/24/18 12:20 Blood - Other Aerobic Blood Culture - Final S. aureus MRSA 05/24/18 12:20 Blood - Other Anaerobic Blood Culture - Final - Imaging ITS Impressions Chest X-Ray 05/20/18 18:07 CONCLUSION: 1. Right subclavian central venous catheter in place. No evidence of pneumothorax. 2. Pulmonary vascular congestion/mild pulmonary edema. Head CT 05/20/18 18:07 CONCLUSION: 1. No acute findings in the brain. . Upper Extremity Ultrasound 05/21/18 00:00 CONCLUSION: 1. No focal fluid collections adjacent to the patent AV fistula. Tube Removal 05/23/18 00:00 CONCLUSION: 1. Uncomplicated Permcath removal. - Procedures Removal of permacath Subclavian CL Assessment and Plan - Assessment (1) Encephalopathy Code(s): G93.40 - Encephalopathy, unspecified Status: Acute (2) Sepsis Code(s): A41.9 - Sepsis, unspecified organism Status: Acute (3) ESRD (end stage renal disease) on dialysis Code(s): N18.6 - End stage renal disease; Z99.2 - Dependence on renal dialysis Status: Acute (4) Afib Code(s): I48.91 - Unspecified atrial fibrillation Status: Acute - Plan -ACUTE METABOLIC ENCEPHALOPATHY - sent to ER from SNF due to AMS/Fever/ tachycardia, probable underlying Dementia, and Acute Sepsis, CT Head w/ no acute findings, images reviewed. improving to baseline, stable - SEPSIS/MRSA Bacteremia likely dialysis catheter related, fever improved, on daptomycin iv q 48hrs post dialysis, post dialysis catheter removal. will need 6 wks iv abx w dialysis from last pos cultures, awaiting Id ok for dc planning - ESRD on HD: T//S, dialysis today, cont per nephrology - A-FIB w RVR, chronic h/o pAfib on Cardizem, initially tachycardic w/ HR 114, likely compounded by sepsis, continue home Cardizem, telemetry, monitor BP, high risk for ac due to risk of bleeding, cont rate control CHADs2-Vasc 8, high risk, but reported hx GIB, and anemia will cont asa only -HTN/CHF by history, currently compensated and nml lvfx per echo /history of CVA /PAD hx / DYSLIPIDEMIA - cont home meds -DM NIDDM- cont iss, diet, controlled -ANEMIA - chronic dz/ckd - mild drop in hh, monitor, transfuse as needed. -DISPOSITION - return to snf w IV abx may likely be continued in dialysis when ok w ID DVT Prophylaxis: SCD/Teds
[2018-05-29] MEDS ORDERED: Dextrose 50% in Water 50 ML Vial IV.PUSH PRN (22:27)
[2018-05-30] MEDS: Acetaminophen 325 MG Tablet PO PRN (00:09)
--- NOTE | 2018-05-30 08:59 | P.PNNP ---
Subjective Interval history: The patient is awake and alert. Quite frustrated today stating he feels like he is not making any progress. Is also complaining of R neck and R shoulder pain, but says he does not want any medication for the pain. Physical Exam Vital signs: Vital Signs 05/29/18 12:00 05/29/18 16:00 05/29/18 20:00 Temperature 98.7 F 98 F 98.0 F Pulse Rate 92 H 97 H 118 H Respiratory Rate 18 Blood Pressure 107/57 L 137/62 116/55 L Pulse Oximetry 100 100 100 05/30/18 00:00 05/30/18 00:39 05/30/18 04:00 Temperature 98.2 F 97.9 F Pulse Rate 144 H 121 H Respiratory Rate 18 Blood Pressure 139/65 136/63 Pulse Oximetry 100 100 Intake & Output 05/29/18 05/30/18 05/30/18 18:59 06:59 18:59 Intake Total 960 / 960 120 / 120 Balance 960 / 960 120 / 120 Weight 63.7 kg Intake: Oral 960 / 960 120 / 120 Other: # Voids 1 # Bowel Movements 1 2 - Constitutional no acute distress - Routine HEENT Exam Head: Present: normocephalic - Routine Neck Exam Present: supple - Routine Respiratory Exam Present: CTA bilaterally - Routine Cardiovascular Exam Present: tachycardia, irregularly irregular - Routine Abdominal Exam Present: soft - Routine Extremities Exam Absent: edema - Routine Neurological Exam Present: alert Assessment and Plan - Assessment (1) ESRD (end stage renal disease) on dialysis Code(s): N18.6 - End stage renal disease; Z99.2 - Dependence on renal dialysis Status: Chronic Plan: Completed dialysis today. Continue HD TTS Reported some clotting issues with AVG on Wednesday. May need vascular consultation. Medications should be adjusted for ESRD. Avoid gadolinium. (2) Bacteremia Code(s): R78.81 - Bacteremia Status: Acute Plan: On Cubicin per ID. BCx last drawn 05/27 positive. RSC PermCath removed 05/23 Recommended 6 weeks of antibiotic therapy total from last negative culture per ID. (3) Hypertension Code(s): I10 - Essential (primary) hypertension Status: Chronic Qualifiers: Hypertension type: essential hypertension Qualified Code(s): I10 - Essential (primary) hypertension Plan: BP better controlled. Continue on current regimen (4) Diabetes mellitus Code(s): E11.9 - Type 2 diabetes mellitus without complications Status: Acute Plan: Mgmt as per primary (5) Atrial fibrillation Code(s): I48.91 - Unspecified atrial fibrillation Status: Acute Plan: Cardizem held 05/29 d/t low BP. Resume today. (6) Right shoulder pain Code(s): M25.511 - Pain in right shoulder Status: Acute Plan: Pt reporting significant right shoulder and neck pain today. Defer to primary regarding work up.
[2018-05-30] MEDS: Insulin NovoLOG Aspart Correctional Sugar Inj SQ SCH ×4 (10:36→21:18)
[2018-05-30] MEDS: Vitamin B Complex/Vit C/Folic Tablet PO SCH (10:36)
[2018-05-30] MEDS: CALCITRIOL PO SCH (10:36)
[2018-05-30] MEDS: Sodium Chloride 0.9% 2 ML Flush BID IV.FLUSH SCH ×2 (10:37→21:18)
[2018-05-30] MEDS: Senna/Docusate Sodium 8.6/50 MG Tablet PO SCH ×2 (10:37→21:18)
[2018-05-30] MEDS: Ferrous Sulfate 325 MG Tablet PO SCH (10:37)
[2018-05-30] MEDS: dilTIAZem 60 MG Tablet PO SCH ×4 (10:38→21:18)
[2018-05-30] MEDS: Allopurinol 100 MG Tablet PO SCH (10:38)
--- NOTE | 2018-05-30 12:50 | P.PNID ---
Subjective Remarks: Patient is an 83-year-old male, [facility] the [facility], brought into the hospital for evaluation of lethargy, fever and tachycardia. Patient has ESRD, and gets hemodialysis. He currently has a permacath. He underwent placement of an AV graft last April 11. He gets hemodialysis every Wednesday, , and Wednesday. 2 blood cultures done in the emergency room are now reported as growing gram-positive cocci, and possible MRSA. Patient received Vanco and Zosyn in the emergency room. Patient at the time my exam is currently undergoing hemodialysis. They are having problem using the AV graft in the left upper extremity, and actively using both permacath and AV graft for his current hemodialysis. Highest temperature has been 101. His WBC is elevated at 24,000. There is no mention of any other problem in the [facility]. There is been no cough or congestion, nausea or vomiting, abdominal pain, or diarrhea. Infectious disease consultation has been requested to assist with evaluation and treatment of his bacteremia. Notes reviewed Temps oBC are still (+) - 05/27 Permacath removed 05/23 Has some clotting issues with his AVG this weekend WBC down to normal Echo ok, no vegetation seen Antibiotics: Cubicin Lines: Permacath Past Medical History: AVF (arteriovenous fistula) (Acute) Hemodialysis access, AV graft Arteriovenous fistula CHF (congestive heart failure) Dementia ESRD (end stage renal disease) on dialysis History of CVA (cerebrovascular accident) Hypertension Peripheral vascular disease Type 2 diabetes mellitus with other diabetic kidney complication Allergies/Adverse Reactions: Allergies No Known Allergies Allergy (Unknown, Uncoded 04/11/18 11:44) n/a Objective Vital Signs 05/29/18 16:00 05/29/18 20:00 05/30/18 00:00 Temperature 98 F 98.0 F 98.2 F Pulse Rate 97 H 118 H 144 H Respiratory Rate 20 18 18 Blood Pressure 137/62 116/55 L 139/65 Pulse Oximetry 100 100 100 05/30/18 00:39 05/30/18 04:00 05/30/18 08:00 Temperature 97.9 F 97.7 F Pulse Rate 121 H 114 H Respiratory Rate 18 18 18 Blood Pressure 136/63 125/61 Pulse Oximetry 100 100 05/30/18 12:00 Temperature 97.2 F L Pulse Rate Respiratory Rate 18 Blood Pressure 146/68 H Pulse Oximetry 100 Intake & Output 11/25/18 11/26/18 11/26/18 18:59 06:59 18:59 Intake Total 960 / 960 120 / 120 Balance 960 / 960 120 / 120 Weight 63.7 kg Intake: Oral 960 / 960 120 / 120 Other: # Voids 1 # Bowel Movements 1 2 05/27/18 07:05 Blood - Peripheral Aerobic Blood Culture - Final S. aureus MRSA 05/27/18 07:05 Blood - Peripheral Anaerobic Blood Culture - Preliminary No growth in 3 days 05/26/18 13:10 Blood - Peripheral Aerobic Blood Culture - Preliminary No growth in 4 days 05/26/18 13:10 Blood - Peripheral Anaerobic Blood Culture - Preliminary No growth in 4 days 05/24/18 12:30 Blood - Other Aerobic Blood Culture - Final S. aureus MRSA 05/24/18 12:30 Blood - Other Anaerobic Blood Culture - Final No growth in 5 days 05/24/18 08:00 Blood - Peripheral Aerobic Blood Culture - Final No growth in 5 days 05/24/18 08:00 Blood - Peripheral Anaerobic Blood Culture - Final S. aureus MRSA 05/24/18 12:20 Blood - Other Aerobic Blood Culture - Final S. aureus MRSA 05/24/18 12:20 Blood - Other Anaerobic Blood Culture - Final 05/23/18 12:30 Blood - Peripheral Aerobic Blood Culture - Final S. aureus MRSA 05/23/18 12:30 Blood - Peripheral Anaerobic Blood Culture - Final No growth in 5 days Lab - Hematology Results 05/29/18 07:04 WBC 10.0 RBC 3.92 L Hgb 9.3 L Hct 29.4 L MCV 74.9 L MCH 23.7 L MCHC 31.6 L RDW 20.9 H Plt Count 405 MPV 7.9 Prelim Diff (Auto) Slide review pending Neut % (Auto) 81.8 H Lymph % (Auto) 5.6 L [place] % (Auto) 8.7 H Eos % (Auto) 2.9 Baso % (Auto) 1.0 Neut # (Auto) 8.2 H Lymph # (Auto) 0.6 L [place] # (Auto) 0.9 Eos # (Auto) 0.3 Baso # (Auto) 0.1 WBC Differential . Diff Scan Auto diff confirmed Differential Comment . Platelet Estimate Normal Platelet Morphology Enlarged H Target Cells 2+ H Ovalocytes 1+ H Lab - Chemistry Results 05/30/18 05/30/18 08:07 12:40 POC Glucose 131 H 120 H Imaging: ITS Impressions Chest X-Ray 05/20/18 18:07 CONCLUSION: 1. Right subclavian central venous catheter in place. No evidence of pneumothorax. 2. Pulmonary vascular congestion/mild pulmonary edema. Head CT 05/20/18 18:07 CONCLUSION: 1. No acute findings in the brain. . Upper Extremity Ultrasound 05/21/18 00:00 CONCLUSION: 1. No focal fluid collections adjacent to the patent AV fistula. Tube Removal 05/23/18 00:00 CONCLUSION: 1. Uncomplicated Permcath removal. Physical Exam: GENERAL: awake and alert, NAD SKIN: Warm and dry. No generalized rash EYES: [place] conjunctiva. No petechia or hemorrhage. Pupils equal, round and reactive to light. Extraocular movements full and intact. No scleral icterus. No injection or drainage. EARS, NOSE AND THROAT: Nose without bleeding or purulent nasal discharge. No sinus tenderness. Mucous membranes pink and moist. No oral lesions noted. No exudate. No oral thrush. NECK: Trachea midline. Supple and not tender, no meningeal signs CARDIOVASCULAR: Regular rate and rhythm. No murmurs, rubs or gallops heard. Permacath R upper chest site dry, no discharge, no redness, no tenderness at tunnel, no induration, no swelling. RESPIRATORY: Clear to auscultation. Breath sounds equal bilaterally. No rales , wheezing or rhonchi ABDOMEN: Soft, non-tender, nondistended. Bowel sounds present and normoactive. No guarding. No rebound. No organomegaly. EXTREMITIES: No clubbing, cyanosis, or edema. No joint effusion, has good ROM. No calf tenderness. Well perfused and warm. LUE AVG no redness or induration or tenderness NEUROLOGICAL: Awake and alert. No facial asymmetry. Moves all extremities PSYCHIATRIC: calm and cooperative. LINE: No evidence of infection Assessment and Plan - Plan Impression Sepsis, MRSA, high grade - possibly the HD cath - Permacath removed 05/23 - BC still (+) Encephalopathy due to sepsis ESRD, on HD TTHSA Fevers and leukocytosis due to sepsis, better Recommendation Follow repeat BC Continue IV Cubicin US RUE - previous permacath site Vascular to evaluate his AVG Will need 6 weeks IV Abx from date of last (+) BC Follow temps Monitor progress D/W Dr Walters Also spoke with CM - not ready for D/C from ID standpoint
--- NOTE | 2018-05-30 13:28 | P.CONVS ---
History of Present Illness Service: Cardiovascular Consult date: 05/30/18 Reason for Consult: Arteriovenous Graft Primary Care Provider: UNKNOWN Chief Complaint: AMS History of Present Illness: 83/M w/ a PMH of HTN, CVA, Dementia, DM and ESRD on HD T/T/S Pt underwent a LEFT UE Arteriovenous Graft on 04/11/18 Pt was cleared for access use on 05/06/18 Recently L UE AVF was having cannulation issues Pt denied hand pain B UE warm w/ motor intact Review of Systems Constitutional: Denies chills, Denies fever(s) PMFSH - History History Provided By: Patient - Medical History Medical History: Medical History (Last Reviewed 05/30/18 @ 13:18 by Gill De Guzman) AVF (arteriovenous fistula) (Acute) Hemodialysis access, AV graft History of MRSA infection Onset Date: ~05/20/18 Arteriovenous fistula CHF (congestive heart failure) Dementia ESRD (end stage renal disease) on dialysis History of CVA (cerebrovascular accident) Hypertension Peripheral vascular disease Type 2 diabetes mellitus with other diabetic kidney complication - Family History Family History: Family History (Last Reviewed 05/26/18 @ 08:47 by Bess Jaime) Other Family history of hypertension - Social History I have reviewed the patient's Social History: Yes - Tobacco History Second Hand Smoke Exposure: No Smoking Status: Never smoker - Alcohol History How Often Do You Have a Drink Containing Alcohol: Never - Substance Use History Substance History: No History of Abuse - Immunization History Tetanus Immunization: Unsure Medications and Allergies Allergies Allergy/AdvReac Type Severity Reaction Status Date / Time No Known Allergies Allergy Unknown n/a Uncoded 04/11/18 11:44 Home Medications Medication Instructions Recorded Confirmed Type B complex-vitamin C-folic acid 1 tab PO DAILY 03/07/18 05/20/18 History [Padmini-Micah] albuterol sulfate [Ventolin HFA] 1 puff INHALATION QID PRN 03/07/18 05/20/18 History allopurinol 100 mg PO DAILY 03/07/18 05/20/18 History atorvastatin 10 mg PO DAILY 03/07/18 05/20/18 History ergocalciferol (vitamin D2) 50,000 unit PO QWEEK 03/07/18 05/20/18 History [Vitamin D2] ferrous sulfate 325 mg PO DAILY 03/07/18 05/20/18 History fluticasone 2 spray INTRANASAL DAILY 03/07/18 05/20/18 History Active Medications: Active Medications Acetaminophen (Tylenol) 650 mg PO Q4H PRN PRN Reason: Temp > 100.4 Last Admin: 05/30/18 00:09 Dose: 650 mg Acetaminophen (Tylenol) 650 mg PO UNSCH PRN PRN Reason: SEE LABEL COMMENTS Albuterol (Ventolin Hfa Inh) 1 puff INH QID PRN PRN Reason: SHORTNESS OF BREATH Allopurinol (Zyloprim) 100 mg PO DAILY [facility] Last Admin: 05/30/18 10:38 Dose: 100 mg Aspirin (Ecotrin) 81 mg PO DAILY [facility] Last Admin: 05/30/18 10:37 Dose: 81 mg Bisacodyl (Dulcolax Supp) 10 mg RECTAL DAILY PRN PRN Reason: SEVERE CONSITIPATION Calcitriol (Calctriol Liq) 0.5 mcg PO MOWEFR [facility] Last Admin: 05/30/18 10:36 Dose: 0.5 mcg Clonidine HCl (Catapres) 0.1 mg PO UNSCH PRN PRN Reason: SEE LABEL COMMENTS Dextrose (D50w Vial) 50 ml IV.PUSH UNSCH PRN PRN Reason: PER HYPOGLYCEMIA PROTOCOL Diltiazem HCl (Cardizem) 60 mg PO QID [facility] Last Admin: 05/30/18 10:38 Dose: 60 mg Diphenhydramine HCl (Benadryl) 25 mg PO UNSCH PRN PRN Reason: SEE LABEL COMMENTS Last Admin: 05/21/18 20:54 Dose: 25 mg Epoetin Buddy (Epogen Inj) 10,000 unit SQ [id number]@1400 [facility] Last Admin: 05/27/18 13:42 Dose: 10,000 unit Ergocalciferol (Vitamin D2) 50,000 unit PO Q7D [facility] Last Admin: 05/25/18 14:37 Dose: 50,000 unit Ferrous Sulfate (Ferosul) 325 mg PO DAILY [facility] Last Admin: 05/30/18 10:37 Dose: 325 mg Fluticasone Propionate (Flonase Nasal [place]) 2 spray EACH NARE DAILY [facility] Last Admin: 05/30/18 10:37 Dose: 2 spray Gelatin (Gelfoam 12 Mm/7 Mm Topical) 1 foam TOPICAL PRN PRN PRN Reason: help stop bleeding from site Last Admin: 05/25/18 11:52 Dose: 1 foam Gentamicin Sulfate (Gentamicin Inj) 20 mg OTHER WITH DIALYSIS PRN PRN Reason: Dwell Gentamycin Lock Glucagon (Glucagon Inj) 1 mg OTHER PRN PRN PRN Reason: for Hypoglycemia Protocol Heparin Sodium (Porcine) (Heparin Inj) 8,000 units OTHER WITH DIALYSIS PRN PRN Reason: for machine prime Heparin Sodium (Porcine) (Heparin Inj) 1,000 units OTHER WITH DIALYSIS PRN PRN Reason: Dwell Heparin to Fill Catheter Last Admin: 05/21/18 16:30 Dose: 1,000 units Sodium Chloride (Ns Inj) 1,000 mls @ 0 mls/hr OTHER .Q0M PRN PRN Reason: for prime and rinse back Sodium Chloride (Ns Inj) 1,000 mls @ 200 mls/hr OTHER .Q5H PRN PRN Reason: for dialyzer flush PRN Sodium Chloride (Ns Inj) 1,000 mls @ 0 mls/hr IV.CONT .Q0M PRN PRN Reason: hypotension / volume replace Albumin Human (Flexbumin 25% Inj) 100 mls @ 60 mls/hr IV.SIG WITH DIALYSIS PRN PRN Reason: hypotension / volume replace Daptomycin 700 mg/ Sodium (Chloride) 100 mls @ 200 mls/hr IV.SIG Q48H [facility] Last Infusion: 05/28/18 18:37 Dose: Infused Insulin Aspart (Novolog Insulin [place] Sugar Inj) 0 unit SQ ACHS [place]; Protocol Last Admin: 05/30/18 10:36 Dose: Not Given Lactulose (Lactulose Liq) 30 ml PO DAILY PRN PRN Reason: SEVERE CONSITIPATION Mannitol (Mannitol Inj) 12.5 gm IV.PUSH UNSCH PRN PRN Reason: hypotension / volume replace Nitroglycerin (Nitrostat Sl) 0.4 mg SL Q5M PRN PRN Reason: CHEST PAIN Ondansetron HCl (Zofran Inj) 4 mg IV.PUSH Q6H PRN PRN Reason: NAUSEA OR VOMITING Ondansetron HCl (Zofran Inj) 4 mg IV.PUSH UNSCH PRN PRN Reason: NAUSEA OR VOMITING Senna/Docusate Sodium (Sol-Colace) 1 tab PO BID [place] Last Admin: 05/30/18 10:37 Dose: 1 tab Sennosides (Senokot) 17.2 mg PO Q12H PRN PRN Reason: Moderate Constipation Sodium Chloride (Ns Flush) 5 ml IV.FLUSH PRN PRN PRN Reason: flush each lumen during HD Sodium Chloride (Ns Flush) 2 ml IV.FLUSH BID [facility] Last Admin: 05/30/18 10:37 Dose: 2 ml Sodium Chloride (Ns Flush) 2 ml IV.FLUSH PRN PRN PRN Reason: FLUSH AFTER USING IV ACCESS Vitamin B Complex/Vit C/Folic Acid (Nephrocaps) 1 tab PO DAILY [facility] Last Admin: 05/30/18 10:36 Dose: 1 tab Physical Exam Vital Signs / I&O: Vital Signs 05/29/18 16:00 05/29/18 20:00 05/30/18 00:00 Temperature 98 F 98.0 F 98.2 F Pulse Rate 97 H 118 H 144 H Respiratory Rate 20 18 18 Blood Pressure 137/62 116/55 L 139/65 Pulse Oximetry 100 100 100 05/30/18 00:39 05/30/18 04:00 05/30/18 08:00 Temperature 97.9 F 97.7 F Pulse Rate 121 H 114 H Respiratory Rate 18 18 18 Blood Pressure 136/63 125/61 Pulse Oximetry 100 100 05/30/18 12:00 Temperature 97.2 F L Pulse Rate Respiratory Rate 18 Blood Pressure 146/68 H Pulse Oximetry 100 Intake & Output 05/29/18 05/30/18 05/30/18 18:59 06:59 18:59 Intake Total 960 / 960 120 / 120 Balance 960 / 960 120 / 120 Weight 63.7 kg Intake: Oral 960 / 960 120 / 120 Other: # Voids 1 # Bowel Movements 1 2 Neuro: Alert w/ episodes of confusion - Hx of Speech clear Neck: No JVD distention Heart: +S1,S2 Lungs: CTA Vascular: L UE AVF w/ a Palpable thrill at the proximal and distal end No hand pain noted Palpable L ulnar pulse 1+ Extremities: UE 4/5 UE warm w/ motor intact Laboratory Results - last 24 hr 05/30/18 05/30/18 08:07 12:40 POC Glucose 131 H 120 H Microbiology 05/27/18 07:05 Aerobic Blood Culture - Final Blood - Peripheral S. aureus MRSA Anaerobic Blood Culture - Preliminary No growth in 3 days 05/26/18 13:10 Aerobic Blood Culture - Preliminary Blood - Peripheral No growth in 4 days Anaerobic Blood Culture - Preliminary No growth in 4 days 05/24/18 12:30 Aerobic Blood Culture - Final Blood - Other S. aureus MRSA Anaerobic Blood Culture - Final No growth in 5 days 05/24/18 08:00 Aerobic Blood Culture - Final Blood - Peripheral No growth in 5 days Anaerobic Blood Culture - Final S. aureus MRSA 05/24/18 12:20 Aerobic Blood Culture - Final Blood - Other S. aureus MRSA Anaerobic Blood Culture - Final Assessment and Plan - Plan 83/M with ESRD on HD every T/T/S Pt recently having cannulation difficulties to his L UE AVG + thrill to proximal and distal end of AVG No hand pain noted Plan Ordered a L UE AVF Duplex to access patency Recommendations to follow once completed Gill De Guzman NP [facility] [phone] - Attending Attestation Agree with above. Seen with [facility] [employer] on 05/30 and repeated edmondson portions of H&P. L UE AVG intact without stenosis on duplex. Great thrill. No apparent stenosis. Of note, it was done with bovine pericardial graft so should be significantly more resistant to bacterial seeding than standard PTFE ok to use AVF and will follow-up with HD. Agustín Bustos MD FSVS FACS RPVI gallery or museum curator [facility] at [facility] [phone]
[2018-05-30] MEDS: DAPTOmycin Inj 700 MG in Sodium Chlor 0.9% Inj 100 ML IV.SIG SCH (14:10)
--- NOTE | 2018-05-30 14:32 | US ---
EXAM DATE: 05/30/2018 2:23 PM EST AGE/SEX: 83 years / Male INDICATIONS: Left arm post graft. Access patency. CLINICAL DATA: This is the patient's subsequent encounter. Patient reports that signs and symptoms h ave been present for 1 day and indicates a pain score of 0/10. MEDICAL/SURGICAL HISTORY: Dementia. Diabetes mellitus type II. CHF. ESRD. CVA. MRSA. HTN. PVD. . AV Fistula. Hemodialysis. COMPARISON: [facility] [place], ARM HEMODIALYSIS DOPPLER LEFT, 05/21/2018. . FINDINGS: There is good visualization of the patient's brachial artery to cephalic vein fistula. The arterial i nflow, the fistula and outflow were evaluated. There is no evidence of hemodynamically significant st enosis. CONCLUSION: 1. No hemodynamically significant stenosis identified. The patient's fistula appears widely patent. Electronically signed by: Cecil Sam MD 05/30/2018 2:30 PM EST
--- NOTE | 2018-05-30 14:35 | US ---
EXAM DATE: 05/30/2018 2:19 PM EST AGE/SEX: 83 years / Male INDICATIONS: Right arm swelling. CLINICAL DATA: This is the patient's initial encounter. Patient reports that signs and symptoms have been present for 1 day and indicates a pain score of 0/10. MEDICAL/SURGICAL HISTORY: Dementia. Diabetes mellitus type II. CHF. ESRD. CVA. MRSA. HTN. PVD. . AV Fistula. Hemodialysis. COMPARISON: [facility] [place], ARM RIGHT HEMODIALYSIS DOPPLER, 11/10/2017. . FINDINGS: The examination demonstrates an occluded AV graft in the right arm. There is a small amoun t of thrombus in the cephalic vein just at the anastomosis of the patient's graft. The remainder of t he venous system of the right upper extremity appears widely patent. The jugular vein is patent. Other: None. CONCLUSION: 1. Occluded AV graft in the right upper extremity. 2. Small amount of thrombus just at the anastomosis of the graft with the cephalic vein. 3. The deep venous system of the right upper extremity appears patent. Electronically signed by: Cecil Sam MD 05/30/2018 2:34 PM EST
--- NOTE | 2018-05-30 17:10 | P.PN ---
Subjective Interval history: Follow-up MRSA bacteremia. Patient has no complaints but he is mildly confused asking why he is in the hospital. He is oriented to person and place Physical Exam Vital signs: Vital Signs 05/29/18 20:00 05/30/18 00:00 05/30/18 00:39 Temperature 98.0 F 98.2 F Pulse Rate 118 H 144 H Respiratory Rate 18 18 18 Blood Pressure 116/55 L 139/65 Pulse Oximetry 100 100 05/30/18 04:00 05/30/18 08:00 05/30/18 12:00 Temperature 97.9 F 97.7 F 97.2 F L Pulse Rate 121 H 114 H Respiratory Rate 18 18 18 Blood Pressure 136/63 125/61 146/68 H Pulse Oximetry 100 100 100 05/30/18 16:00 Temperature 97.8 F Pulse Rate 122 H Respiratory Rate 20 Blood Pressure 132/62 Pulse Oximetry 100 Intake & Output 05/29/18 05/30/18 05/30/18 18:59 06:59 18:59 Intake Total 960 / 960 120 / 120 100 / 100 Balance 960 / 960 120 / 120 100 / 100 Weight 63.7 kg Intake: IV 100 / 100 Cubicin Inj 700 MG In NS Inj 100 / 100 100 ML @ 200 mls/hr IV.SIG Q48H [facility] Rx#:[id number] Oral 960 / 960 120 / 120 Other: # Voids 1 # Bowel Movements 1 2 Narrative: wdwn elderly aam nad aaox2 flat affect heart s1s2 reg irreg lungs clear no wrr abd soft nondt pos bs ext no edema no clubbing no cyanosis Results - Labs CBC & Chem 7: 05/29/18 07:04 05/28/18 07:21 Laboratory Results - last 24 hr 05/30/18 05/30/18 05/30/18 08:07 12:40 16:51 POC Glucose 131 H 120 H 117 H Microbiology 05/27/18 07:05 Blood - Peripheral Aerobic Blood Culture - Final S. aureus MRSA 05/27/18 07:05 Blood - Peripheral Anaerobic Blood Culture - Preliminary No growth in 3 days 05/26/18 13:10 Blood - Peripheral Aerobic Blood Culture - Preliminary No growth in 4 days 05/26/18 13:10 Blood - Peripheral Anaerobic Blood Culture - Preliminary No growth in 4 days - Imaging Impressions Upper Extremity Ultrasound 05/30/18 00:00 CONCLUSION: 1. No hemodynamically significant stenosis identified. The patient's fistula appears widely patent. Venous Doppler Study 05/30/18 00:00 CONCLUSION: 1. Occluded AV graft in the right upper extremity. 2. Small amount of thrombus just at the anastomosis of the graft with the cephalic vein. 3. The deep venous system of the right upper extremity appears patent. - Procedures Removal of permacath Subclavian CL Assessment and Plan - Assessment (1) Encephalopathy Code(s): G93.40 - Encephalopathy, unspecified Status: Acute (2) Sepsis Code(s): A41.9 - Sepsis, unspecified organism Status: Acute (3) ESRD (end stage renal disease) on dialysis Code(s): N18.6 - End stage renal disease; Z99.2 - Dependence on renal dialysis Status: Acute (4) Afib Code(s): I48.91 - Unspecified atrial fibrillation Status: Acute - Plan -ACUTE METABOLIC ENCEPHALOPATHY - sent to ER from SNF due to AMS/Fever/ tachycardia, probable underlying Dementia, and Acute Sepsis, CT Head w/ no acute findings, images reviewed. improving to baseline, stable - SEPSIS/MRSA Bacteremia likely dialysis catheter related, fever improved, on daptomycin iv q 48hrs post dialysis, post dialysis catheter removal. will need 6 wks iv abx w dialysis from last pos cultures, awaiting Id ok for dc planning. Discussed with ID obtain ultrasound of the previous permacath site because of persistent bacteremia - ESRD on HD: T//S, cont per nephrology. Consulted vascular surgery because of clotting issues. Doppler sonogram ordered to check for patency - A-FIB w RVR, chronic h/o pAfib on Cardizem, initially tachycardic w/ HR 114, likely compounded by sepsis, continue home Cardizem, telemetry, monitor BP, high risk for ac due to risk of bleeding, cont rate control CHADs2-Vasc 8, high risk, but reported hx GIB, and anemia will cont asa only -HTN/CHF by history, currently compensated and nml lvfx per echo /history of CVA /PAD hx / DYSLIPIDEMIA - cont home meds -DM NIDDM- cont iss, diet, controlled -ANEMIA - chronic dz/ckd - mild drop in hh, monitor, transfuse as needed. -DISPOSITION - return to snf w IV abx may likely be continued in dialysis when ok w ID DVT Prophylaxis: SCD/Teds
[2018-05-31 07:23] LABS: Baso # (Auto) 0.1 th/mm3 (0.0-0.2); Baso % (Auto) 1.2 % (0.0-2.0); Eos # (Auto) 0.4 th/mm3 (0.0-0.4); Eos % (Auto) 3.6 % (0.0-4.0); Hematocrit 25.9 % (39.0-51.0); Hemoglobin 8.3 gm/dL (13.0-17.0); Lymph # (Auto) 0.7 th/mm3 (1.0-4.8); Lymph % (Auto) 6.1 % (9.0-44.0); Mean Corpuscular HGB Conc 31.9 % (32.0-36.0); Mean Corpuscular Hemoglobin 23.4 pg (27.0-34.0); Mean Corpuscular Volume 73.4 fL (80.0-100.0); Mean Platelet Volume 7.6 fL (7.0-11.0); Mono # (Auto) 1.1 th/mm3 (0.0-0.9); Mono % (Auto) 9.9 % (0.0-8.0); Neut # (Auto) 8.6 th/mm3 (1.8-7.7); Neut % (Auto) 79.2 % (16.0-70.0); Platelet Count 455 th/mm3 (150-450); Red Blood Count 3.54 mil/mm3 (4.50-5.90); Red Cell Distribution Width 20.3 % (11.6-17.2); White Blood Count 10.9 th/mm3 (4.0-11.0)
[2018-05-31 07:41] LABS: Albumin 2.5 g/dL (3.4-5.0); Carbon Dioxide 26.8 meq/L (21.0-32.0); Potassium 5.2 meq/L (3.5-5.1)
[2018-05-31 07:50] LABS: Phosphorus 8.5 mg/dL (2.5-4.9)
[2018-05-31] MEDS: Insulin NovoLOG Aspart Correctional Sugar Inj SQ SCH ×4 (09:42→22:07)
[2018-05-31] MEDS: Ferrous Sulfate 325 MG Tablet PO SCH (09:44)
[2018-05-31] MEDS: dilTIAZem 60 MG Tablet PO SCH ×5 (09:44→22:04)
[2018-05-31] MEDS: Allopurinol 100 MG Tablet PO SCH (09:45)
[2018-05-31] MEDS: Sodium Chloride 0.9% 2 ML Flush BID IV.FLUSH SCH ×2 (09:45→22:04)
[2018-05-31] MEDS: Vitamin B Complex/Vit C/Folic Tablet PO SCH (09:45)
[2018-05-31] MEDS: Senna/Docusate Sodium 8.6/50 MG Tablet PO SCH ×2 (09:45→22:04)
--- NOTE | 2018-05-31 11:30 | P.PN ---
Subjective Interval history: Follow-up MRSA bacteremia. Seen in hemodialysis. Complaining of constipation denies nausea and abdominal pain. Discussed with nephrology Physical Exam Vital signs: Vital Signs 05/30/18 12:00 05/30/18 16:00 05/30/18 23:03 Temperature 97.2 F L 97.8 F 98.3 F Pulse Rate 122 H 68 Respiratory Rate 18 20 14 Blood Pressure 146/68 H 132/62 136/61 Pulse Oximetry 100 100 100 Intake & Output 05/30/18 05/31/18 05/31/18 18:59 06:59 18:59 Intake Total 700 / 700 Balance 700 / 700 Weight 65.3 kg Intake: IV 100 / 100 Cubicin Inj 700 MG In NS Inj 100 / 100 100 ML @ 200 mls/hr IV.SIG Q48H [facility] Rx#:[id number] Oral 600 / 600 Other: # Voids 3 1 Date of Last Bowel Movement 05/31/18 # Bowel Movements 1 Narrative: wdwn elderly aam nad aaox2 flat affect heart s1s2 lungs clear no wrr abd soft nondt pos bs ext no edema no clubbing no cyanosis Results - Labs CBC & Chem 7: 05/31/18 06:43 05/31/18 06:43 Laboratory Results - last 24 hr 05/30/18 05/30/18 05/30/18 12:40 16:51 20:11 WBC RBC Hgb Hct MCV MCH MCHC RDW Plt Count MPV Neut % (Auto) Lymph % (Auto) [place] % (Auto) Eos % (Auto) Baso % (Auto) Neut # (Auto) Lymph # (Auto) [place] # (Auto) Eos # (Auto) Baso # (Auto) WBC Differential Differential Comment Sodium Potassium Chloride Carbon Dioxide Anion Gap BUN Creatinine Estimated GFR POC Glucose 120 H 117 H 144 H Random Glucose Calcium Phosphorus Albumin 05/31/18 05/31/18 05/31/18 06:43 06:43 08:36 WBC 10.9 RBC 3.54 L Hgb 8.3 L Hct 25.9 L MCV 73.4 L MCH 23.4 L MCHC 31.9 L RDW 20.3 H Plt Count 455 H MPV 7.6 Neut % (Auto) 79.2 H Lymph % (Auto) 6.1 L [place] % (Auto) 9.9 H Eos % (Auto) 3.6 Baso % (Auto) 1.2 Neut # (Auto) 8.6 H Lymph # (Auto) 0.7 L [place] # (Auto) 1.1 H Eos # (Auto) 0.4 Baso # (Auto) 0.1 WBC Differential . Differential Comment Auto diff final Sodium 137 Potassium 5.2 H Chloride 97 L Carbon Dioxide 26.8 Anion Gap 13 BUN 91 H Creatinine 12.46 H* Estimated GFR 5 L POC Glucose 126 H Random Glucose 130 H Calcium 10.0 Phosphorus 8.5 H Albumin 2.5 L Microbiology 05/30/18 18:28 Blood - Peripheral Aerobic Blood Culture - Preliminary No growth in 1 day 05/30/18 18:28 Blood - Peripheral Anaerobic Blood Culture - Preliminary No growth in 1 day 05/27/18 07:05 Blood - Peripheral Aerobic Blood Culture - Final S. aureus MRSA 05/27/18 07:05 Blood - Peripheral Anaerobic Blood Culture - Preliminary No growth in 4 days 05/26/18 13:10 Blood - Peripheral Aerobic Blood Culture - Final No growth in 5 days 05/26/18 13:10 Blood - Peripheral Anaerobic Blood Culture - Final No growth in 5 days - Imaging Impressions Upper Extremity Ultrasound 05/30/18 00:00 CONCLUSION: 1. No hemodynamically significant stenosis identified. The patient's fistula appears widely patent. Venous Doppler Study 05/30/18 00:00 CONCLUSION: 1. Occluded AV graft in the right upper extremity. 2. Small amount of thrombus just at the anastomosis of the graft with the cephalic vein. 3. The deep venous system of the right upper extremity appears patent. - Procedures Removal of permacath Subclavian CL Assessment and Plan - Assessment (1) Encephalopathy Code(s): G93.40 - Encephalopathy, unspecified Status: Acute (2) Sepsis Code(s): A41.9 - Sepsis, unspecified organism Status: Acute (3) ESRD (end stage renal disease) on dialysis Code(s): N18.6 - End stage renal disease; Z99.2 - Dependence on renal dialysis Status: Acute (4) Afib Code(s): I48.91 - Unspecified atrial fibrillation Status: Acute - Plan -ACUTE METABOLIC ENCEPHALOPATHY - sent to ER from SNF due to AMS/Fever/ tachycardia, probable underlying Dementia, and Acute Sepsis, CT Head w/ no acute findings, images reviewed. improving to baseline, stable - SEPSIS/MRSA Bacteremia likely dialysis catheter related, fever improved, on daptomycin iv q 48hrs post dialysis, post dialysis catheter removal. will need 6 wks iv abx w dialysis from last pos cultures, awaiting Id ok for dc planning. Repeat ultrasound of the previous permacath site no evidence of infection. Patient has persistent bacteremia, repeat blood cultures from yesterday and today negative to date. May need blood cultures taken from AVG - ESRD on HD: T//S, cont per nephrology. Consulted vascular surgery because of clotting issues. Doppler sonogram showed patent AV fistula - A-FIB w RVR, chronic h/o pAfib on Cardizem, initially tachycardic w/ HR 114, likely compounded by sepsis, continue home Cardizem, telemetry, monitor BP, high risk for ac due to risk of bleeding, cont rate control CHADs2-Vasc 8, high risk, but reported hx GIB, and anemia will cont asa only -HTN/CHF by history, currently compensated and nml lvfx per echo /history of CVA /PAD hx / DYSLIPIDEMIA - cont home meds -DM NIDDM- cont iss, diet, controlled -ANEMIA - chronic dz/ckd - mild drop in hh, monitor, transfuse as needed. -Constipation. Add lactulose to Sol-Colace DISPOSITION - return to snf w IV abx may likely be continued in dialysis when ok w ID DVT Prophylaxis: SCD/Teds. Start subcu heparin if no planned procedures
--- NOTE | 2018-05-31 11:37 | P.PNVS ---
Subjective Subjective/Hospital Course: Pt was seen in dialysis Pt does not appear to have any complaints L UE AVG was accessed Objective Vital Signs / I&O: Vital Signs 05/30/18 12:00 05/30/18 16:00 05/30/18 23:03 Temperature 97.2 F L 97.8 F 98.3 F Pulse Rate 122 H 68 Respiratory Rate 18 20 14 Blood Pressure 146/68 H 132/62 136/61 Pulse Oximetry 100 100 100 Intake & Output 05/30/18 05/31/18 05/31/18 18:59 06:59 18:59 Intake Total 700 / 700 Balance 700 / 700 Weight 65.3 kg Intake: IV 100 / 100 Cubicin Inj 700 MG In NS Inj 100 / 100 100 ML @ 200 mls/hr IV.SIG Q48H [facility] Rx#:[id number] Oral 600 / 600 Other: # Voids 3 1 Date of Last Bowel Movement 05/31/18 # Bowel Movements 1 Physical Exam: L UE AVF w/ a Palpable thrill at the proximal and distal end No hand pain noted Palpable L ulnar pulse 1+ Laboratory Results - last 24 hr 05/30/18 05/30/18 05/30/18 12:40 16:51 20:11 WBC RBC Hgb Hct MCV MCH MCHC RDW Plt Count MPV Neut % (Auto) Lymph % (Auto) [place] % (Auto) Eos % (Auto) Baso % (Auto) Neut # (Auto) Lymph # (Auto) [place] # (Auto) Eos # (Auto) Baso # (Auto) WBC Differential Differential Comment Sodium Potassium Chloride Carbon Dioxide Anion Gap BUN Creatinine Estimated GFR POC Glucose 120 H 117 H 144 H Random Glucose Calcium Phosphorus Albumin 05/31/18 05/31/18 05/31/18 06:43 06:43 08:36 WBC 10.9 RBC 3.54 L Hgb 8.3 L Hct 25.9 L MCV 73.4 L MCH 23.4 L MCHC 31.9 L RDW 20.3 H Plt Count 455 H MPV 7.6 Neut % (Auto) 79.2 H Lymph % (Auto) 6.1 L [place] % (Auto) 9.9 H Eos % (Auto) 3.6 Baso % (Auto) 1.2 Neut # (Auto) 8.6 H Lymph # (Auto) 0.7 L [place] # (Auto) 1.1 H Eos # (Auto) 0.4 Baso # (Auto) 0.1 WBC Differential . Differential Comment Auto diff final Sodium 137 Potassium 5.2 H Chloride 97 L Carbon Dioxide 26.8 Anion Gap 13 BUN 91 H Creatinine 12.46 H* Estimated GFR 5 L POC Glucose 126 H Random Glucose 130 H Calcium 10.0 Phosphorus 8.5 H Albumin 2.5 L Microbiology 05/30/18 18:28 Aerobic Blood Culture - Preliminary Blood - Peripheral No growth in 1 day Anaerobic Blood Culture - Preliminary No growth in 1 day 05/27/18 07:05 Aerobic Blood Culture - Final Blood - Peripheral S. aureus MRSA Anaerobic Blood Culture - Preliminary No growth in 4 days 05/26/18 13:10 Aerobic Blood Culture - Final Blood - Peripheral No growth in 5 days Anaerobic Blood Culture - Final No growth in 5 days Impressions Upper Extremity Ultrasound 05/30/18 00:00 CONCLUSION: 1. No hemodynamically significant stenosis identified. The patient's fistula appears widely patent. Venous Doppler Study 05/30/18 00:00 CONCLUSION: 1. Occluded AV graft in the right upper extremity. 2. Small amount of thrombus just at the anastomosis of the graft with the cephalic vein. 3. The deep venous system of the right upper extremity appears patent. Assessment and Plan - Plan 83/M with ESRD on HD every T/T/S Pt recently having cannulation difficulties to his L UE AVG + thrill to proximal and distal end of AVG No hand pain noted AVG was accessed today with an arterial pressure of 310 Plan Reviewed L UE AVF Duplex- AVF patent w/o stenosis May continue to use L UE AVG Pt clear for d/c from a vascular standpoint Arrange out pt f/u in 2W with a surveillance AVF duplex Gill De Guzman NP [facility] [phone]
[2018-05-31] MEDS: Gelatin 12 MM/7 MM Topical Foam TOPICAL PRN (12:30)
--- NOTE | 2018-05-31 13:28 | P.PNNP ---
Subjective Interval history: Late entry: Pt seen during HD today and access appears to be working well. Vascular has seen in house without need for AVG intervention. Pt no longer c/o neck and shoulder pain, but is complaining of constipation. Last BM about 1 week ago. Physical Exam Vital signs: Vital Signs 05/30/18 16:00 05/30/18 23:03 Temperature 97.8 F 98.3 F Pulse Rate 122 H 68 Respiratory Rate 20 14 Blood Pressure 132/62 136/61 Pulse Oximetry 100 100 Intake & Output 05/30/18 05/31/18 05/31/18 18:59 06:59 18:59 Intake Total 700 / 700 Output Total 2700 / 2700 Balance 700 / 700 -2700 / -2700 Weight 65.3 kg Intake: IV 100 / 100 Cubicin Inj 700 MG In NS Inj 100 / 100 100 ML @ 200 mls/hr IV.SIG Q48H [facility] Rx#:[id number] Oral 600 / 600 Output: Hemodialysis Amount 2700 / 2700 Other: # Voids 3 1 Date of Last Bowel Movement 05/31/18 # Bowel Movements 1 - Constitutional no acute distress - Routine HEENT Exam Head: Present: normocephalic - Routine Neck Exam Present: supple - Routine Respiratory Exam Present: CTA bilaterally - Routine Cardiovascular Exam Present: RRR, S1, S2 - Routine Abdominal Exam Present: soft - Routine Extremities Exam Absent: edema - Routine Neurological Exam Present: alert Assessment and Plan - Assessment (1) ESRD (end stage renal disease) on dialysis Code(s): N18.6 - End stage renal disease; Z99.2 - Dependence on renal dialysis Status: Chronic Plan: Seen during HD today. Continue HD TTS Vascular access working well today. Vascular notes and imaging reviewed. Medications should be adjusted for ESRD. Avoid gadolinium. (2) Bacteremia Code(s): R78.81 - Bacteremia Status: Acute Plan: On Cubicin per ID. BCx 05/27 positive. Repeat 05/30 neg x1 day. Repeated also 05/31 pending [facility] PermCath removed 05/23 Recommended 6 weeks of antibiotic therapy total from last negative culture per ID. (3) Hypertension Code(s): I10 - Essential (primary) hypertension Status: Chronic Qualifiers: Hypertension type: essential hypertension Qualified Code(s): I10 - Essential (primary) hypertension Plan: BP better controlled. Continue on current regimen (4) Diabetes mellitus Code(s): E11.9 - Type 2 diabetes mellitus without complications Status: Acute Plan: Mgmt as per primary (5) Atrial fibrillation Code(s): I48.91 - Unspecified atrial fibrillation Status: Acute Plan: Cardizem held 05/29 d/t low BP. Resume today. (6) Right shoulder pain Code(s): M25.511 - Pain in right shoulder Status: Acute Plan: Resolved as of 05/31
--- NOTE | 2018-05-31 14:15 | P.PNID ---
Subjective Remarks: Patient is an 83-year-old male, resides in the intermediate, brought into the hospital for evaluation of lethargy, fever and tachycardia. Patient has ESRD, and gets hemodialysis. He currently has a permacath. He underwent placement of an AV graft last April 11. He gets hemodialysis every Wednesday, , and Wednesday. 2 blood cultures done in the emergency room are now reported as growing gram-positive cocci, and possible MRSA. Patient received Vanco and Zosyn in the emergency room. Patient at the time my exam is currently undergoing hemodialysis. They are having problem using the AV graft in the left upper extremity, and actively using both permacath and AV graft for his current hemodialysis. Highest temperature has been 101. His WBC is elevated at 24,000. There is no mention of any other problem in the intermediate. There is been no cough or congestion, nausea or vomiting, abdominal pain, or diarrhea. Infectious disease consultation has been requested to assist with evaluation and treatment of his bacteremia. Notes reviewed Temps ok Had HD today BC are still (+) - 05/27 Permacath removed 05/23 Clot in old AVG RUE WBC down to normal Echo ok, no vegetation seen Antibiotics: Cubicin Lines: Permacath Past Medical History: AVF (arteriovenous fistula) (Acute) Hemodialysis access, AV graft Arteriovenous fistula CHF (congestive heart failure) Dementia ESRD (end stage renal disease) on dialysis History of CVA (cerebrovascular accident) Hypertension Peripheral vascular disease Type 2 diabetes mellitus with other diabetic kidney complication Allergies/Adverse Reactions: Allergies No Known Allergies Allergy (Unknown, Uncoded 04/11/18 11:44) n/a Objective Vital Signs 05/30/18 16:00 05/30/18 23:03 Temperature 97.8 F 98.3 F Pulse Rate 122 H 68 Respiratory Rate 20 14 Blood Pressure 132/62 136/61 Pulse Oximetry 100 100 Intake & Output 05/30/18 05/31/18 05/31/18 18:59 06:59 18:59 Intake Total 700 / 700 Output Total 2700 / 2700 Balance 700 / 700 -2700 / -2700 Weight 65.3 kg Intake: IV 100 / 100 Cubicin Inj 700 MG In NS Inj 100 / 100 100 ML @ 200 mls/hr IV.SIG Q48H [facility] Rx#:[id number] Oral 600 / 600 Output: Hemodialysis Amount 2700 / 2700 Other: # Voids 3 1 Date of Last Bowel Movement 05/31/18 # Bowel Movements 1 05/30/18 18:28 Blood - Peripheral Aerobic Blood Culture - Preliminary No growth in 1 day 05/30/18 18:28 Blood - Peripheral Anaerobic Blood Culture - Preliminary No growth in 1 day 05/27/18 07:05 Blood - Peripheral Aerobic Blood Culture - Final S. aureus MRSA 05/27/18 07:05 Blood - Peripheral Anaerobic Blood Culture - Preliminary No growth in 4 days 05/26/18 13:10 Blood - Peripheral Aerobic Blood Culture - Final No growth in 5 days 05/26/18 13:10 Blood - Peripheral Anaerobic Blood Culture - Final No growth in 5 days 05/31/18 06:43 Blood - Peripheral Aerobic Blood Culture - Pending 05/31/18 06:43 Blood - Peripheral Anaerobic Blood Culture - Pending 05/24/18 12:30 Blood - Other Aerobic Blood Culture - Final S. aureus MRSA 05/24/18 12:30 Blood - Other Anaerobic Blood Culture - Final No growth in 5 days 05/24/18 08:00 Blood - Peripheral Aerobic Blood Culture - Final No growth in 5 days 05/24/18 08:00 Blood - Peripheral Anaerobic Blood Culture - Final S. aureus MRSA 05/24/18 12:20 Blood - Other Aerobic Blood Culture - Final S. aureus MRSA 05/24/18 12:20 Blood - Other Anaerobic Blood Culture - Final 05/23/18 12:30 Blood - Peripheral Aerobic Blood Culture - Final S. aureus MRSA 05/23/18 12:30 Blood - Peripheral Anaerobic Blood Culture - Final No growth in 5 days Lab - Hematology Results 05/31/18 06:43 WBC 10.9 RBC 3.54 L Hgb 8.3 L Hct 25.9 L MCV 73.4 L MCH 23.4 L MCHC 31.9 L RDW 20.3 H Plt Count 455 H MPV 7.6 Neut % (Auto) 79.2 H Lymph % (Auto) 6.1 L [place] % (Auto) 9.9 H Eos % (Auto) 3.6 Baso % (Auto) 1.2 Neut # (Auto) 8.6 H Lymph # (Auto) 0.7 L [place] # (Auto) 1.1 H Eos # (Auto) 0.4 Baso # (Auto) 0.1 WBC Differential . Differential Comment Auto diff final Lab - Chemistry Results 05/30/18 05/30/18 05/30/18 08:07 12:40 16:51 Sodium Potassium Chloride Carbon Dioxide Anion Gap BUN Creatinine Estimated GFR POC Glucose 131 H 120 H 117 H Random Glucose Calcium Phosphorus Albumin 05/30/18 05/31/18 05/31/18 20:11 06:43 08:36 Sodium 137 Potassium 5.2 H Chloride 97 L Carbon Dioxide 26.8 Anion Gap 13 BUN 91 H Creatinine 12.46 H* Estimated GFR 5 L POC Glucose 144 H 126 H Random Glucose 130 H Calcium 10.0 Phosphorus 8.5 H Albumin 2.5 L 05/31/18 12:11 Sodium Potassium Chloride Carbon Dioxide Anion Gap BUN Creatinine Estimated GFR POC Glucose 126 H Random Glucose Calcium Phosphorus Albumin Imaging: ITS Impressions Chest X-Ray 05/20/18 18:07 CONCLUSION: 1. Right subclavian central venous catheter in place. No evidence of pneumothorax. 2. Pulmonary vascular congestion/mild pulmonary edema. Head CT 05/20/18 18:07 CONCLUSION: 1. No acute findings in the brain. . Tube Removal 05/23/18 00:00 CONCLUSION: 1. Uncomplicated Permcath removal. Upper Extremity Ultrasound 05/30/18 00:00 CONCLUSION: 1. No hemodynamically significant stenosis identified. The patient's fistula appears widely patent. Venous Doppler Study 05/30/18 00:00 CONCLUSION: 1. Occluded AV graft in the right upper extremity. 2. Small amount of thrombus just at the anastomosis of the graft with the cephalic vein. 3. The deep venous system of the right upper extremity appears patent. Physical Exam: GENERAL: awake and alert, NAD SKIN: Warm and dry. No generalized rash EYES: [place] conjunctiva. No petechia or hemorrhage. Pupils equal, round and reactive to light. Extraocular movements full and intact. No scleral icterus. No injection or drainage. EARS, NOSE AND THROAT: Nose without bleeding or purulent nasal discharge. No sinus tenderness. Mucous membranes pink and moist. No oral lesions noted. No exudate. No oral thrush. NECK: Trachea midline. Supple and not tender, no meningeal signs CARDIOVASCULAR: Regular rate and rhythm. No murmurs, rubs or gallops heard. Permacath R upper chest site dry, no discharge, no redness, no tenderness at tunnel, no induration, no swelling. RESPIRATORY: Clear to auscultation. Breath sounds equal bilaterally. No rales , wheezing or rhonchi ABDOMEN: Soft, non-tender, nondistended. Bowel sounds present and normoactive. No guarding. No rebound. No organomegaly. EXTREMITIES: No clubbing, cyanosis, or edema. No joint effusion, has good ROM. No calf tenderness. Well perfused and warm. LUE AVG no redness or induration or tenderness. RUE old AVG, uunremarkable NEUROLOGICAL: Awake and alert. No facial asymmetry. Moves all extremities PSYCHIATRIC: calm and cooperative. LINE: No evidence of infection Assessment and Plan - Plan Impression Sepsis, MRSA, high grade - possibly the HD cath - Permacath removed 05/23 - BC still (+) Encephalopathy due to sepsis ESRD, on HD TTHSA Fevers and leukocytosis due to sepsis, better Recommendation Follow repeat BC Continue IV Cubicin Will need 6 weeks IV Abx from date of last (+) BC Follow temps Monitor progress
[2018-05-31] MEDS ORDERED: SODIUM CHLOR 0.9% IV.SIG ONE (18:09)
[2018-05-31 21:33] LABS: Calcium 9.7 mg/dL (8.5-10.1); Carbon Dioxide 34.5 meq/L (21.0-32.0); Magnesium 2.2 mg/dL (1.5-2.5); Potassium 4.4 meq/L (3.5-5.1); Thyroid Stimulating Hormone 0.6 uIU/mL (0.358-3.740)
[2018-06-01 08:06] LABS: Albumin 2.7 g/dL (3.4-5.0); Calcium 10.3 mg/dL (8.5-10.1); Carbon Dioxide 26.1 meq/L (21.0-32.0); Potassium 4.7 meq/L (3.5-5.1)
[2018-06-01 08:26] LABS: Phosphorus 6.5 mg/dL (2.5-4.9)
[2018-06-01] MEDS: Allopurinol 100 MG Tablet PO SCH (08:52)
[2018-06-01] MEDS: Vitamin B Complex/Vit C/Folic Tablet PO SCH (08:52)
[2018-06-01] MEDS: CALCITRIOL PO SCH (08:53)
[2018-06-01] MEDS: Insulin NovoLOG Aspart Correctional Sugar Inj SQ SCH ×4 (08:53→21:40)
[2018-06-01] MEDS: Senna/Docusate Sodium 8.6/50 MG Tablet PO SCH ×2 (08:53→21:37)
[2018-06-01] MEDS: Ferrous Sulfate 325 MG Tablet PO SCH (08:53)
[2018-06-01] MEDS: dilTIAZem 60 MG Tablet PO SCH ×5 (08:54→21:37)
[2018-06-01] MEDS: Sodium Chloride 0.9% 2 ML Flush BID IV.FLUSH SCH ×2 (08:54→21:39)
--- NOTE | 2018-06-01 10:10 | P.PNNP ---
Subjective Interval history: Patient lying in bed. Responding to questions. No verbal complaints. Physical Exam Vital signs: Vital Signs 05/31/18 13:45 05/31/18 16:00 05/31/18 20:00 Temperature 97.6 F 97.1 F L 98.6 F Pulse Rate 121 H 59 L 75 Respiratory Rate 22 18 16 Blood Pressure 94/53 L 132/61 88/40 L Pulse Oximetry 100 94 L 05/31/18 21:00 06/01/18 00:00 06/01/18 04:00 Temperature 97.7 F 97.8 F Pulse Rate 84 107 H 94 H Respiratory Rate 18 15 15 Blood Pressure 98/52 L 110/53 L 116/56 L Pulse Oximetry 90 L 99 06/01/18 08:00 Temperature 97.8 F Pulse Rate 117 H Respiratory Rate 19 Blood Pressure 108/57 L Pulse Oximetry 93 L Intake & Output 05/31/18 06/01/18 06/01/18 18:59 06:59 18:59 Intake Total 480 / 480 390 / 390 Output Total 2700 / 2700 Balance -2220 / -2220 390 / 390 Weight 63.4 kg Intake: IV 150 / 150 NS Inj 150 ML @ Wide Open IV. 150 / 150 SIG BOLUS ONE Rx#:[id number] Oral 480 / 480 240 / 240 Output: Hemodialysis Amount 2700 / 2700 Other: # Voids 1 Date of Last Bowel Movement 06/01/18 Assessment and Plan - Assessment (1) ESRD (end stage renal disease) on dialysis Code(s): N18.6 - End stage renal disease; Z99.2 - Dependence on renal dialysis Status: Chronic Plan: Continue HD TTS Vascular access working well Vascular notes and imaging reviewed. Medications should be adjusted for ESRD. Avoid gadolinium. (2) Bacteremia Code(s): R78.81 - Bacteremia Status: Acute Plan: On Cubicin per ID. BCx 05/27 positive. Repeat 05/30 neg x1 day. Repeated also 05/31 pending [facility] PermCath removed 05/23 Recommended 6 weeks of antibiotic therapy total from last negative culture per ID. (3) Hypertension Code(s): I10 - Essential (primary) hypertension Status: Chronic Qualifiers: Hypertension type: essential hypertension Qualified Code(s): I10 - Essential (primary) hypertension Plan: BP better controlled. Continue on current regimen (4) Diabetes mellitus Code(s): E11.9 - Type 2 diabetes mellitus without complications Status: Acute Plan: Mgmt as per primary (5) Atrial fibrillation Code(s): I48.91 - Unspecified atrial fibrillation Status: Acute Plan: Cardizem held 05/29 d/t low BP. Resume today. (6) Right shoulder pain Code(s): M25.511 - Pain in right shoulder Status: Acute Plan: Resolved as of 05/31
--- NOTE | 2018-06-01 10:25 | ECG ---
Date Performed: 05/31/2018 Time Performed: 18:09:17 PTAGE: 83 years EKG: ATRIAL FLUTTER/TACHYCARDIA WITH RAPID VENTRICULAR RESPONSE INDETERMINATE AXIS PATTERN CONSI STENT WITH PULMONARY DISEASE MODERATE INTRAVENTRICULAR CONDUCTION DELAY MARKED ST ELEVATION, CONSIDER INFERIOR INJURY, Q waves present which may represent an subacute injury pattern versus pseudoaneurys m. Clinical correlation recommended PREVIOUS TRACING : 05/20/2018 19.41 DOCTOR: Cal Gomez Interpretating Date/Time 06/01/2018 10:24:26
--- NOTE | 2018-06-01 10:31 | P.PN ---
Subjective Interval history: Follow-up Danae thomas Patient went into RVR yesterday after missing Cardizem dose prior to hemodialysis. Also found on the floor yesterday no apparent injuries Physical Exam Vital signs: Vital Signs 05/31/18 13:45 05/31/18 16:00 05/31/18 20:00 Temperature 97.6 F 97.1 F L 98.6 F Pulse Rate 121 H 59 L 75 Respiratory Rate 22 18 16 Blood Pressure 94/53 L 132/61 88/40 L Pulse Oximetry 100 94 L 05/31/18 21:00 06/01/18 00:00 06/01/18 04:00 Temperature 97.7 F 97.8 F Pulse Rate 84 107 H 94 H Respiratory Rate 18 15 15 Blood Pressure 98/52 L 110/53 L 116/56 L Pulse Oximetry 90 L 99 06/01/18 08:00 Temperature 97.8 F Pulse Rate 117 H Respiratory Rate 19 Blood Pressure 108/57 L Pulse Oximetry 93 L Intake & Output 05/31/18 06/01/18 06/01/18 18:59 06:59 18:59 Intake Total 480 / 480 390 / 390 Output Total 2700 / 2700 Balance -2220 / -2220 390 / 390 Weight 63.4 kg Intake: IV 150 / 150 NS Inj 150 ML @ Wide Open IV. 150 / 150 SIG BOLUS ONE Rx#:[id number] Oral 480 / 480 240 / 240 Output: Hemodialysis Amount 2700 / 2700 Other: # Voids 1 Date of Last Bowel Movement 06/01/18 Narrative: wdwn elderly aam nad aaox2 flat affect heart s1s2 irregularly irregular tachycardic lungs clear no wrr abd soft nondt pos bs ext no edema no clubbing no cyanosis Results - Labs CBC & Chem 7: 05/31/18 06:43 06/01/18 07:11 Laboratory Results - last 24 hr 05/31/18 05/31/18 05/31/18 12:11 16:41 19:37 Sodium Potassium Chloride Carbon Dioxide Anion Gap BUN Creatinine Estimated GFR POC Glucose 126 H 130 H Random Glucose Calcium Phosphorus Magnesium Albumin TSH Cancelled 05/31/18 05/31/18 06/01/18 19:37 22:06 07:11 Sodium 137 133 L Potassium 4.4 D 4.7 Chloride 95 L 96 L Carbon Dioxide 34.5 H 26.1 Anion Gap 8 11 BUN 40 H 46 H Creatinine 7.05 H 8.01 H Estimated GFR 9 L 8 L POC Glucose 139 H Random Glucose 135 H 114 H Calcium 9.7 10.3 H Phosphorus 6.5 H D Magnesium 2.2 Albumin 2.7 L TSH 0.600 06/01/18 08:02 Sodium Potassium Chloride Carbon Dioxide Anion Gap BUN Creatinine Estimated GFR POC Glucose 134 H Random Glucose Calcium Phosphorus Magnesium Albumin TSH Microbiology 05/26/18 13:10 Blood - Peripheral Aerobic Blood Culture - Final S. aureus MRSA 05/26/18 13:10 Blood - Peripheral Anaerobic Blood Culture - Final No growth in 5 days 05/30/18 18:28 Blood - Peripheral Aerobic Blood Culture - Preliminary No growth in 1 day 05/30/18 18:28 Blood - Peripheral Anaerobic Blood Culture - Preliminary No growth in 1 day 05/27/18 07:05 Blood - Peripheral Aerobic Blood Culture - Final S. aureus MRSA 05/27/18 07:05 Blood - Peripheral Anaerobic Blood Culture - Preliminary No growth in 4 days - Procedures Removal of permacath Subclavian CL Assessment and Plan - Assessment (1) Encephalopathy Code(s): G93.40 - Encephalopathy, unspecified Status: Acute (2) Sepsis Code(s): A41.9 - Sepsis, unspecified organism Status: Acute (3) ESRD (end stage renal disease) on dialysis Code(s): N18.6 - End stage renal disease; Z99.2 - Dependence on renal dialysis Status: Acute (4) Afib Code(s): I48.91 - Unspecified atrial fibrillation Status: Acute - Plan -ACUTE METABOLIC ENCEPHALOPATHY - sent to ER from SNF due to AMS/Fever/ tachycardia, probable underlying Dementia, and Acute Sepsis, CT Head w/ no acute findings, images reviewed. improving to baseline, stable - SEPSIS/MRSA Bacteremia likely dialysis catheter related, fever improved, on daptomycin iv q 48hrs post dialysis, post dialysis catheter removal. will need 6 wks iv abx w dialysis from last pos cultures, awaiting Id ok for dc planning. Repeat ultrasound of the previous permacath site no evidence of infection. Patient has persistent bacteremia, repeat blood cultures from 05/30 and 05/31 negative to date. May need blood cultures taken from AVG - ESRD on HD: T//S, cont per nephrology. Consulted vascular surgery because of clotting issues. Sonogram showed patent AV fistula - A-FIB w RVR, chronic h/o pAfib on Cardizem, initially tachycardic w/ HR 114, likely compounded by sepsis, continue home Cardizem, telemetry, monitor BP, high risk for ac due to risk of bleeding, cont rate control CHADs2-Vasc 8, high risk, but reported hx GIB, and anemia will cont asa only. Episodic RVR when he misses dose of Cardizem prior to hemodialysis and secondary to hold parameters. Will change parameters to hold Cardizem if systolic less than 90 -HTN/CHF by history, currently compensated and nml lvfx per echo /history of CVA /PAD hx / DYSLIPIDEMIA - cont home meds -DM NIDDM- cont iss, diet, controlled -ANEMIA - chronic dz/ckd - mild drop in hh, monitor, transfuse as needed. -Constipation. Add lactulose to Sol-Colace -Fall precautions DISPOSITION - return to snf w IV abx may likely be continued in dialysis when ok w ID DVT Prophylaxis: SCD/Teds. Start subcu heparin no planned procedures
[2018-06-01] MEDS: DAPTOmycin Inj 700 MG in Sodium Chlor 0.9% Inj 100 ML IV.SIG SCH (12:48)
[2018-06-01] MEDS: Heparin - SQ 10,000 UNITS/ML Vial SQ SCH (21:37)
[2018-06-02] MEDS: dilTIAZem 60 MG Tablet PO SCH ×4 (09:02→20:46)
[2018-06-02] MEDS: Insulin NovoLOG Aspart Correctional Sugar Inj SQ SCH ×4 (09:04→20:52)
[2018-06-02] MEDS: Ferrous Sulfate 325 MG Tablet PO SCH (09:11)
[2018-06-02] MEDS: Vitamin B Complex/Vit C/Folic Tablet PO SCH (09:13)
[2018-06-02] MEDS: Sodium Chloride 0.9% 2 ML Flush BID IV.FLUSH SCH ×2 (09:13→20:47)
[2018-06-02] MEDS: Heparin - SQ 10,000 UNITS/ML Vial SQ SCH ×2 (09:13→20:46)
[2018-06-02] MEDS: Allopurinol 100 MG Tablet PO SCH (09:14)
[2018-06-02] MEDS: Senna/Docusate Sodium 8.6/50 MG Tablet PO SCH ×2 (09:14→20:46)
--- NOTE | 2018-06-02 10:02 | P.PN ---
Subjective Interval history: Follow-up MRSA bacteremia. No fever. Had a small bowel movement. Seen in hemodialysis Physical Exam Vital signs: Vital Signs 06/01/18 12:00 06/01/18 16:00 06/01/18 20:00 Temperature 97.6 F 97.6 F 98.8 F Pulse Rate 89 107 H 61 Respiratory Rate 18 19 22 Blood Pressure 128/57 L 110/53 L 141/60 H Pulse Oximetry 100 87 L 100 06/02/18 00:00 06/02/18 03:54 Temperature 98.4 F 98.2 F Pulse Rate 73 72 Respiratory Rate 20 20 Blood Pressure 139/62 129/56 L Pulse Oximetry 100 100 Intake & Output 06/01/18 06/02/18 06/02/18 18:59 06:59 18:59 Intake Total 850 / 850 120 / 120 Balance 850 / 850 120 / 120 Weight 64.8 kg Intake: IV 100 / 100 Cubicin Inj 700 MG In NS Inj 100 / 100 100 ML @ 200 mls/hr IV.SIG Q48H [place] Rx#:[id number] Oral 750 / 750 120 / 120 Other: # Voids 5 Date of Last Bowel Movement 06/01/18 06/01/18 # Bowel Movements 1 Narrative: wdwn elderly aam nad aaox2 flat affect heart s1s2 irregularly irregular lungs clear no wrr abd soft nondt pos bs ext no edema no clubbing no cyanosis Results - Labs CBC & Chem 7: 05/31/18 06:43 06/01/18 07:11 Laboratory Results - last 24 hr 06/01/18 06/01/18 06/01/18 12:00 16:57 21:40 POC Glucose 127 H 140 H 144 H 06/02/18 07:37 POC Glucose 119 H Microbiology 05/31/18 06:43 Blood - Peripheral Aerobic Blood Culture - Preliminary No growth in 1 day 05/31/18 06:43 Blood - Peripheral Anaerobic Blood Culture - Preliminary No growth in 1 day 05/30/18 18:28 Blood - Peripheral Aerobic Blood Culture - Preliminary No growth in 2 days 05/30/18 18:28 Blood - Peripheral Anaerobic Blood Culture - Preliminary No growth in 2 days 05/27/18 07:05 Blood - Peripheral Aerobic Blood Culture - Final S. aureus MRSA 05/27/18 07:05 Blood - Peripheral Anaerobic Blood Culture - Final No growth in 5 days 05/26/18 13:10 Blood - Peripheral Aerobic Blood Culture - Final S. aureus MRSA 05/26/18 13:10 Blood - Peripheral Anaerobic Blood Culture - Final No growth in 5 days - Procedures Removal of permacath Subclavian CL Assessment and Plan - Assessment (1) Encephalopathy Code(s): G93.40 - Encephalopathy, unspecified Status: Acute (2) Sepsis Code(s): A41.9 - Sepsis, unspecified organism Status: Acute (3) ESRD (end stage renal disease) on dialysis Code(s): N18.6 - End stage renal disease; Z99.2 - Dependence on renal dialysis Status: Acute (4) Afib Code(s): I48.91 - Unspecified atrial fibrillation Status: Acute - Plan -ACUTE METABOLIC ENCEPHALOPATHY - sent to ER from SNF due to AMS/Fever/ tachycardia, probable underlying Dementia, and Acute Sepsis, CT Head w/ no acute findings, images reviewed. improving to baseline, stable - SEPSIS/MRSA Bacteremia likely dialysis catheter related, fever improved, on daptomycin iv q 48hrs post dialysis, post dialysis catheter removal. will need 6 wks iv abx w dialysis from last pos cultures, awaiting Id ok for dc planning. Repeat ultrasound of the previous permacath site no evidence of infection. Patient has persistent bacteremia, repeat blood cultures from 05/30 and 05/31 negative to date. May need blood cultures taken from AVG - ESRD on HD: T//S, cont per nephrology. Consulted vascular surgery because of clotting issues. Sonogram showed patent AV fistula - A-FIB w RVR, chronic h/o pAfib on Cardizem, initially tachycardic w/ HR 114, likely compounded by sepsis, continue home Cardizem, telemetry, monitor BP, high risk for ac due to risk of bleeding, cont rate control CHADs2-Vasc 8, high risk, but reported hx GIB, and anemia will cont asa only. Episodic RVR when he misses dose of Cardizem prior to hemodialysis and secondary to hold parameters. Will change parameters to hold Cardizem if systolic less than 90 -HTN/CHF by history, currently compensated and nml lvfx per echo /history of CVA /PAD hx / DYSLIPIDEMIA - cont home meds -DM NIDDM- cont iss, diet, controlled -ANEMIA - chronic dz/ckd - mild drop in hh, monitor, transfuse as needed. -Constipation. Added Dulcolax suppository to lactulose and Sol-Colace -Fall precautions DISPOSITION - return to snf w IV abx may likely be continued in dialysis when ok w ID DVT Prophylaxis: SCD/Teds. Start subcu heparin no planned procedures
[2018-06-03] MEDS: Insulin NovoLOG Aspart Correctional Sugar Inj SQ SCH ×4 (08:52→21:16)
[2018-06-03] MEDS: Allopurinol 100 MG Tablet PO SCH (08:54)
[2018-06-03] MEDS: Heparin - SQ 10,000 UNITS/ML Vial SQ SCH ×2 (08:55→21:16)
[2018-06-03] MEDS: Senna/Docusate Sodium 8.6/50 MG Tablet PO SCH ×2 (08:55→21:16)
[2018-06-03] MEDS: Vitamin B Complex/Vit C/Folic Tablet PO SCH (08:55)
[2018-06-03] MEDS: Ferrous Sulfate 325 MG Tablet PO SCH (08:55)
[2018-06-03] MEDS: dilTIAZem 60 MG Tablet PO SCH ×4 (08:55→21:16)
[2018-06-03] MEDS: Acetaminophen 325 MG Tablet PO PRN ×2 (08:56→17:12)
[2018-06-03] MEDS: CALCITRIOL PO SCH (08:57)
[2018-06-03] MEDS ORDERED: Bisacodyl 10 MG Supp RECTAL SCH (09:00)
[2018-06-03] MEDS: Sodium Chloride 0.9% 2 ML Flush BID IV.FLUSH SCH ×2 (09:01→21:16)
--- NOTE | 2018-06-03 10:11 | P.PN ---
Subjective Interval history: Follow-up MRSA bacteremia. Happy to hear he will be discharged after hemodialysis tomorrow on IV Cubicin to be given during hemodialysis. Positive bowel movement. Physical Exam Vital signs: Vital Signs 06/02/18 16:00 06/02/18 20:00 06/02/18 23:02 Temperature 98.5 F 98.5 F Pulse Rate 91 H 97 H 97 H Respiratory Rate 19 18 Blood Pressure 111/55 L 120/56 L Pulse Oximetry 100 96 06/03/18 00:00 06/03/18 04:00 06/03/18 08:00 Temperature 98.5 F 98.0 F 97.6 F Pulse Rate 60 60 110 H Respiratory Rate 17 17 16 Blood Pressure 135/58 L 122/59 L 132/56 L Pulse Oximetry 100 99 100 Intake & Output 06/02/18 06/03/18 06/03/18 18:59 06:59 18:59 Intake Total 480 / 480 Output Total 1000 / 1000 Balance -1000 / -1000 480 / 480 Weight 65 kg Intake: Oral 480 / 480 Output: Hemodialysis Amount 1000 / 1000 Other: # Voids 1 Date of Last Bowel Movement 06/02/18 06/02/18 # Bowel Movements 3 Narrative: wdwn elderly aam nad aaox2 flat affect heart s1s2 irregularly irregular lungs clear no wrr abd soft nondt pos bs ext no edema no clubbing no cyanosis Results - Labs CBC & Chem 7: 05/31/18 06:43 06/01/18 07:11 Laboratory Results - last 24 hr 06/02/18 06/02/18 06/02/18 11:52 17:15 20:48 POC Glucose 118 H 141 H 135 H 06/03/18 07:39 POC Glucose 127 H Microbiology 05/31/18 06:43 Blood - Peripheral Aerobic Blood Culture - Preliminary No growth in 2 days 05/31/18 06:43 Blood - Peripheral Anaerobic Blood Culture - Preliminary No growth in 2 days 05/30/18 18:28 Blood - Peripheral Aerobic Blood Culture - Preliminary No growth in 3 days 05/30/18 18:28 Blood - Peripheral Anaerobic Blood Culture - Preliminary No growth in 3 days - Procedures Removal of permacath Subclavian CL Assessment and Plan - Assessment (1) Encephalopathy Code(s): G93.40 - Encephalopathy, unspecified Status: Acute (2) Sepsis Code(s): A41.9 - Sepsis, unspecified organism Status: Acute (3) ESRD (end stage renal disease) on dialysis Code(s): N18.6 - End stage renal disease; Z99.2 - Dependence on renal dialysis Status: Acute (4) Afib Code(s): I48.91 - Unspecified atrial fibrillation Status: Acute - Plan -ACUTE METABOLIC ENCEPHALOPATHY - sent to ER from SNF due to AMS/Fever/ tachycardia, probable underlying Dementia, and Acute Sepsis, CT Head w/ no acute findings, images reviewed. improving to baseline, stable - SEPSIS/MRSA Bacteremia likely dialysis catheter related, fever improved, on daptomycin iv q 48hrs post dialysis, post dialysis catheter removal. will need 6 wks iv abx w dialysis from last pos cultures, awaiting Id ok for dc planning. Repeat ultrasound of the previous permacath site no evidence of infection. Patient has persistent bacteremia, repeat blood cultures from 05/30 and 05/31 negative to date. Per ID, IV Cubicin during hemodialysis till July 13, 2018 - ESRD on HD: T//S, cont per nephrology. Consulted vascular surgery because of clotting issues. Sonogram showed patent AV fistula - A-FIB w RVR, chronic h/o pAfib on Cardizem, initially tachycardic w/ HR 114, likely compounded by sepsis, continue home Cardizem, telemetry, monitor BP, high risk for ac due to risk of bleeding, cont rate control CHADs2-Vasc 8, high risk, but reported hx GIB, and anemia will cont asa only. Episodic RVR when he misses dose of Cardizem prior to hemodialysis and secondary to hold parameters. Will change parameters to hold Cardizem if systolic less than 90 -HTN/CHF by history, currently compensated and nml lvfx per echo /history of CVA /PAD hx / DYSLIPIDEMIA - cont home meds -DM NIDDM- cont iss, diet, controlled. Complains of neuropathy will start Neurontin -ANEMIA - chronic dz/ckd - mild drop in hh, monitor, transfuse as needed. -Constipation. Continue bowel regimen -Fall precautions DISPOSITION - return to snf w IV abx to be continued in dialysis DVT Prophylaxis: SCD/Teds. Start subcu heparin no planned procedures Discharge Planning: Discharge after hemodialysis tomorrow
--- NOTE | 2018-06-03 11:29 | P.DCO ---
Post Hospital Infusion Therapy - Infusion Therapy Location of Infusion Therapy: Dialysis Center - Patient Information Patient Weight: 65 kg - Diagnosis (1) MRSA (methicillin resistant Staphylococcus aureus) septicemia Code(s): A41.02 - Sepsis due to Methicillin resistant Staphylococcus aureus - Administer Medication Daptomycin Directions: q 48 hours with Hemodialysis //Wed Additional Dosing Instructions: Cubicin 700 mg IV with HD TThSat Stop Treatment: 07/07/18 - Additional Information Venous Access: Other (AVF) Additional Instructions: [x] Peripheral flush and dressing changes per protocol [x] Implanted port and central online marketing director: * Implanted port: 10 ml Normal Saline followed by 5 ml Heparin 100 units/ml Heparin flush after each use and monthly to maintain. [] May leave port accessed during therapy. [] May leave peripheral site accessed for duration of therapy. [x] If patient has SOB or respiratory distress, check oxygen saturation. If less than 90% or clinical signs of respiratory distress, administer oxygen at 2 L/min. via nasal cannula and notify physician. [x] Anaphylaxis/Reaction orders: * Stop infusion. * Keep IV line open with saline flush. * Notify physician. * Monitor vital signs every 15 minutes until symptoms resolve. * Check Oxygen saturation; Oxygen at 2 L/min. via nasal cannula if less than 90% or clinical signs of respiratory distress. * Administer diphenhydramine (Benadryl) 25 mg IV STAT, (unless patient has received as pre-med). May repeat once, if necessary. * Solu-Cortef 250 mg IVP over 30-60 seconds, use 100 mg vials for each dissolution. * Epinephrine (1mg/1 ml) 0.3 mg subcutaneously or IVP now with any signs of respiratory distress. * Check with physician for new additional pre-med orders if patient is re- challenged or re-treated. [x] May remove PICC line when treatment complete, after confirming with Physician. [x] If the patient is admitted to the hospital, the ED, or transferred via [facility] , complete transfer form including medication reconciliation order sheet. Weekly Labs: CBC w/diff, Serum CK Levels (Labs every Wednesday) - Case Management Consult Case Management Consult-IVF: Yes (Arrange IV Abx in dialysis center) - Patient Information Allergies No Known Allergies Allergy (Unknown, Uncoded 04/11/18 11:44) n/a
--- NOTE | 2018-06-03 12:42 | P.PNID ---
Subjective Remarks: Patient is an 83-year-old male, [facility], brought into the hospital for evaluation of lethargy, fever and tachycardia. Patient has ESRD, and gets hemodialysis. He currently has a permacath. He underwent placement of an AV graft last April 11. He gets hemodialysis every Wednesday, , and Wednesday. 2 blood cultures done in the emergency room are now reported as growing gram-positive cocci, and possible MRSA. Patient received Vanco and Zosyn in the emergency room. Patient at the time my exam is currently undergoing hemodialysis. They are having problem using the AV graft in the left upper extremity, and actively using both permacath and AV graft for his current hemodialysis. Highest temperature has been 101. His WBC is elevated at 24,000. There is no mention of any other problem in the jail. There is been no cough or congestion, nausea or vomiting, abdominal pain, or diarrhea. Infectious disease consultation has been requested to assist with evaluation and treatment of his bacteremia. Notes reviewed Temps ok Last (+) BV 05/27 Permacath removed 05/23 Clot in old AVG RUE WBC down to normal Echo ok, no vegetation seen Spoke with CM - HD can give Cubicin Antibiotics: Cubicin Lines: Permacath Past Medical History: AVF (arteriovenous fistula) (Acute) Hemodialysis access, AV graft Arteriovenous fistula CHF (congestive heart failure) Dementia ESRD (end stage renal disease) on dialysis History of CVA (cerebrovascular accident) Hypertension Peripheral vascular disease Type 2 diabetes mellitus with other diabetic kidney complication Allergies/Adverse Reactions: Allergies No Known Allergies Allergy (Unknown, Uncoded 04/11/18 11:44) n/a Objective Vital Signs 06/02/18 16:00 06/02/18 20:00 06/02/18 23:02 Temperature 98.5 F 98.5 F Pulse Rate 91 H 97 H 97 H Respiratory Rate 19 18 Blood Pressure 111/55 L 120/56 L Pulse Oximetry 100 96 06/03/18 00:00 06/03/18 04:00 06/03/18 08:00 Temperature 98.5 F 98.0 F 97.6 F Pulse Rate 60 60 110 H Respiratory Rate 17 17 16 Blood Pressure 135/58 L 122/59 L 132/56 L Pulse Oximetry 100 99 100 06/03/18 08:48 06/03/18 12:00 Temperature 97.7 F Pulse Rate 103 H 73 Respiratory Rate 16 Blood Pressure 128/61 Pulse Oximetry 100 Intake & Output 06/02/18 06/03/18 06/03/18 18:59 06:59 18:59 Intake Total 480 / 480 Output Total 1000 / 1000 Balance -1000 / -1000 480 / 480 Weight 65 kg 65 kg Intake: Oral 480 / 480 Output: Hemodialysis Amount 1000 / 1000 Other: # Voids 1 Date of Last Bowel Movement 06/02/18 06/02/18 # Bowel Movements 3 05/31/18 06:43 Blood - Peripheral Aerobic Blood Culture - Preliminary No growth in 3 days 05/31/18 06:43 Blood - Peripheral Anaerobic Blood Culture - Preliminary No growth in 3 days 05/30/18 18:28 Blood - Peripheral Aerobic Blood Culture - Preliminary No growth in 4 days 05/30/18 18:28 Blood - Peripheral Anaerobic Blood Culture - Preliminary No growth in 4 days 05/27/18 07:05 Blood - Peripheral Aerobic Blood Culture - Final S. aureus MRSA 05/27/18 07:05 Blood - Peripheral Anaerobic Blood Culture - Final No growth in 5 days 05/26/18 13:10 Blood - Peripheral Aerobic Blood Culture - Final S. aureus MRSA 05/26/18 13:10 Blood - Peripheral Anaerobic Blood Culture - Final No growth in 5 days Lab - Chemistry Results 06/01/18 06/01/18 06/02/18 16:57 21:40 07:37 POC Glucose 140 H 144 H 119 H 06/02/18 06/02/18 06/02/18 11:52 17:15 20:48 POC Glucose 118 H 141 H 135 H 06/03/18 06/03/18 07:39 12:20 POC Glucose 127 H 108 Imaging: ITS Impressions Chest X-Ray 05/20/18 18:07 CONCLUSION: 1. Right subclavian central venous catheter in place. No evidence of pneumothorax. 2. Pulmonary vascular congestion/mild pulmonary edema. Head CT 05/20/18 18:07 CONCLUSION: 1. No acute findings in the brain. . Tube Removal 05/23/18 00:00 CONCLUSION: 1. Uncomplicated Permcath removal. Upper Extremity Ultrasound 05/30/18 00:00 CONCLUSION: 1. No hemodynamically significant stenosis identified. The patient's fistula appears widely patent. Venous Doppler Study 05/30/18 00:00 CONCLUSION: 1. Occluded AV graft in the right upper extremity. 2. Small amount of thrombus just at the anastomosis of the graft with the cephalic vein. 3. The deep venous system of the right upper extremity appears patent. Physical Exam: GENERAL: awake and alert, NAD SKIN: Warm and dry. No generalized rash EYES: [place] conjunctiva. No petechia or hemorrhage. Pupils equal, round and reactive to light. Extraocular movements full and intact. No scleral icterus. No injection or drainage. EARS, NOSE AND THROAT: Nose without bleeding or purulent nasal discharge. No sinus tenderness. Mucous membranes pink and moist. No oral lesions noted. No exudate. No oral thrush. NECK: Trachea midline. Supple and not tender, no meningeal signs CARDIOVASCULAR: Regular rate and rhythm. No murmurs, rubs or gallops heard. Permacath R upper chest site dry, no discharge, no redness, no tenderness at tunnel, no induration, no swelling. RESPIRATORY: Clear to auscultation. Breath sounds equal bilaterally. No rales , wheezing or rhonchi ABDOMEN: Soft, non-tender, nondistended. Bowel sounds present and normoactive. No guarding. No rebound. No organomegaly. EXTREMITIES: No clubbing, cyanosis, or edema. No joint effusion, has good ROM. No calf tenderness. Well perfused and warm. LUE AVG no redness or induration or tenderness. RUE old AVG, uunremarkable NEUROLOGICAL: Awake and alert. No facial asymmetry. Moves all extremities PSYCHIATRIC: calm and cooperative. LINE: No evidence of infection Assessment and Plan (1) MRSA (methicillin resistant Staphylococcus aureus) septicemia Status: Acute Code(s): A41.02 - Sepsis due to Methicillin resistant Staphylococcus aureus - Plan Impression Sepsis, MRSA, high grade - possibly the HD cath - Permacath removed 05/23 - BC still (+) Encephalopathy due to sepsis ESRD, on HD TTHSA Fevers and leukocytosis due to sepsis, better Recommendation Follow repeat BC Continue IV Cubicin Will need 6 weeks IV Abx from date of last (+) BC - I filled out Abx infusion form Monitor progress Seems to be clinically doing well from ID standpoint Spoke with JOHANA D/W Dr Walters - D/C once arrangements made
[2018-06-03] MEDS: Gabapentin 100 MG Capsule PO SCH ×2 (13:18→17:12)
[2018-06-03] MEDS: DAPTOmycin Inj 700 MG in Sodium Chlor 0.9% Inj 100 ML IV.SIG SCH (13:19)
--- NOTE | 2018-06-03 15:30 | P.PNNP ---
Subjective Interval history: Pt seen sitting in chair watching TV. NAD and reports he is feeling well. Has been moving bowels and is happy to hear he will be getting discharged soon. <BrandtElizabeth R - Last Filed: 06/03/18 15:26> Physical Exam Vital signs: Vital Signs 06/02/18 16:00 06/02/18 20:00 06/02/18 23:02 Temperature 98.5 F 98.5 F Pulse Rate 91 H 97 H 97 H Respiratory Rate 19 18 Blood Pressure 111/55 L 120/56 L Pulse Oximetry 100 96 06/03/18 00:00 06/03/18 04:00 06/03/18 08:00 Temperature 98.5 F 98.0 F 97.6 F Pulse Rate 60 60 110 H Respiratory Rate 17 17 16 Blood Pressure 135/58 L 122/59 L 132/56 L Pulse Oximetry 100 99 100 06/03/18 08:48 06/03/18 12:00 Temperature 97.7 F Pulse Rate 103 H 73 Respiratory Rate 16 Blood Pressure 128/61 Pulse Oximetry 100 Intake & Output 06/02/18 06/03/18 06/03/18 18:59 06:59 18:59 Intake Total 480 / 480 100 / 100 Output Total 1000 / 1000 Balance -1000 / -1000 480 / 480 100 / 100 Weight 65 kg 65 kg Intake: IV 100 / 100 Cubicin Inj 700 MG In NS Inj 100 / 100 100 ML @ 200 mls/hr IV.SIG Q48H [facility] Rx#:[id number] Oral 480 / 480 Output: Hemodialysis Amount 1000 / 1000 Other: # Voids 1 Date of Last Bowel Movement 06/02/18 06/02/18 # Bowel Movements 3 - Constitutional no acute distress - Routine HEENT Exam Head: Present: normocephalic - Routine Neck Exam Present: supple - Routine Respiratory Exam Present: CTA bilaterally - Routine Cardiovascular Exam Present: RRR, S1, S2 - Routine Skin Exam Present: intact - Routine Neurological Exam Present: alert <Brandt,Elizabeth R - Last Filed: 06/03/18 15:26> Vital signs: Vital Signs 06/03/18 16:00 06/03/18 20:00 06/04/18 00:00 Temperature 97.7 F 98.3 F 98.5 F Pulse Rate 73 75 73 Respiratory Rate 16 17 18 Blood Pressure 106/51 L 131/59 L 109/55 L Pulse Oximetry 100 100 96 06/04/18 03:55 06/04/18 08:00 Temperature 97.6 F 98.0 F Pulse Rate 73 71 Respiratory Rate 18 18 Blood Pressure 128/56 L 119/62 Pulse Oximetry 99 95 Intake & Output 06/03/18 06/04/18 06/04/18 18:59 06:59 18:59 Intake Total 1700 / 1700 480 / 480 Balance 1700 / 1700 480 / 480 Weight 65 kg 65 kg Intake: IV 100 / 100 Cubicin Inj 700 MG In NS Inj 100 / 100 100 ML @ 200 mls/hr IV.SIG Q48H [facility] Rx#:[id number] Oral 1600 / 1600 480 / 480 Other: # Voids 0 0 Date of Last Bowel Movement 06/02/18 # Bowel Movements 2 2 <Marivel Arciniega - Last Filed: 06/04/18 12:35> Assessment and Plan - Assessment (1) ESRD (end stage renal disease) on dialysis Code(s): N18.6 - End stage renal disease; Z99.2 - Dependence on renal dialysis Status: Chronic Plan: HD tomorrow per regular schedule. ID has placed discharge abx orders and is cleared for D/C from renal standpoint tomorrow after HD. Outpatient dialysis unit aware. Medications should be adjusted for ESRD. Avoid gadolinium. (2) Bacteremia Code(s): R78.81 - Bacteremia Status: Acute Plan: On Cubicin per ID. RSC PermCath removed 05/23. BCx neg 05/30 & 05/31 Recommended 6 weeks of antibiotic therapy total from last negative culture per ID. (3) Hypertension Code(s): I10 - Essential (primary) hypertension Status: Chronic Qualifiers: Hypertension type: essential hypertension Qualified Code(s): I10 - Essential (primary) hypertension Plan: BP better controlled. Continue on current regimen. (4) Diabetes mellitus Code(s): E11.9 - Type 2 diabetes mellitus without complications Status: Acute Plan: Mgmt as per primary (5) Atrial fibrillation Code(s): I48.91 - Unspecified atrial fibrillation Status: Acute Plan: Rate controlled (6) Right shoulder pain Code(s): M25.511 - Pain in right shoulder Status: Acute Plan: Resolved as of 05/31 <Elizabeth Brandt - Last Filed: 06/03/18 15:26> - Assessment (1) ESRD (end stage renal disease) on dialysis Code(s): N18.6 - End stage renal disease; Z99.2 - Dependence on renal dialysis Status: Chronic (2) Bacteremia Code(s): R78.81 - Bacteremia Status: Acute (3) Hypertension Code(s): I10 - Essential (primary) hypertension Status: Chronic Qualifiers: Hypertension type: essential hypertension Qualified Code(s): I10 - Essential (primary) hypertension (4) Diabetes mellitus Code(s): E11.9 - Type 2 diabetes mellitus without complications Status: Acute (5) Atrial fibrillation Code(s): I48.91 - Unspecified atrial fibrillation Status: Acute (6) Right shoulder pain Code(s): M25.511 - Pain in right shoulder Status: Acute - Attending Attestation The exam, history, and the medical decision-making described in the above note were completed with the assistance of the AMADOU. I reviewed and agree with the findings presented. <Marivel Arciniega - Last Filed: 06/04/18 12:35>
[2018-06-04] MEDS: Insulin NovoLOG Aspart Correctional Sugar Inj SQ SCH ×2 (07:52→13:02)
[2018-06-04] MEDS: dilTIAZem 60 MG Tablet PO SCH ×2 (08:37→13:04)
[2018-06-04] MEDS: Ferrous Sulfate 325 MG Tablet PO SCH (08:37)
[2018-06-04] MEDS: Heparin - SQ 10,000 UNITS/ML Vial SQ SCH (08:37)
[2018-06-04] MEDS: Vitamin B Complex/Vit C/Folic Tablet PO SCH (08:37)
[2018-06-04] MEDS: Allopurinol 100 MG Tablet PO SCH (08:37)
[2018-06-04] MEDS: Senna/Docusate Sodium 8.6/50 MG Tablet PO SCH (08:37)
[2018-06-04] MEDS: Sodium Chloride 0.9% 2 ML Flush BID IV.FLUSH SCH (08:38)
[2018-06-04 09:00] VITALS: O2SAT 95
--- NOTE | 2018-06-04 11:27 | P.DS ---
Date of admission: 05/20/18 19:57 Primary care physician: UNKNOWN Brief History from admission: This is an 83-year-old male with a PMH of HTN, Hyperlipidemia, Dementia, CHF ( Echo 03/13/18 w/ EF 65-70%), ESRD on HD T//S, s/p LUE AV Graft by Dr. Bustos 04/11/18, DM and h/o CVA who was sent to the ER from SNF due to AMS, fever and tachycardia. Pt unable to provide any history at this time. Per report, pt noted to have episode of fever, tachycardia and increased confusion today. Last HD on , no missed dialysis per SNF. On arrival, BP 136/64, HR 114, O2 sat 100% on 3L NC, Temp 101.1. WBC 23.4. INR 1.2. Creatinine 8.33. Troponin 0 0.09. CXR with right subclavian central venous catheter in place, no pneumothorax, mild pulmonary edema. CT Head no acute findings. S/p Vanc/ Zosyn in ER. DS: Diagnosis - Discharge Diagnosis (1) Encephalopathy Status: Acute (2) Sepsis Status: Acute (3) ESRD (end stage renal disease) on dialysis Status: Acute (4) Afib Status: Acute DS: Medications - Discharge Medications Prescriptions: aspirin 81 mg PO DAILY #30 tab calcitriol 0.5 mcg PO MOWEFR #30 ml daptomycin 700 mg IV.SIG .Q48 42 Days #21 vial DS: Summary Hospital Course: -ACUTE METABOLIC ENCEPHALOPATHY - sent to ER from SNF due to AMS/Fever/ tachycardia, probable underlying Dementia, and Acute Sepsis, CT Head w/ no acute findings, images reviewed. improving to baseline, stable - SEPSIS/MRSA Bacteremia likely dialysis catheter related, fever improved, on daptomycin iv q 48hrs post dialysis, post dialysis catheter removal. will need 6 wks iv abx w dialysis from last pos cultures, awaiting Id ok for dc planning. Repeat ultrasound of the previous permacath site no evidence of infection. Patient has persistent bacteremia, repeat blood cultures from 05/30 and 05/31 negative to date. Per ID, IV Cubicin during hemodialysis till July 13, 2018 - ESRD on HD: T//S, cont per nephrology. Consulted vascular surgery because of clotting issues. Sonogram showed patent AV fistula - A-FIB w RVR, chronic h/o pAfib on Cardizem, initially tachycardic w/ HR 114, likely compounded by sepsis, continue home Cardizem, telemetry, monitor BP, high risk for ac due to risk of bleeding, cont rate control CHADs2-Vasc 8, high risk, but reported hx GIB, and anemia will cont asa only. Episodic RVR when he misses dose of Cardizem prior to hemodialysis and secondary to hold parameters. Will change parameters to hold Cardizem if systolic less than 90 -HTN/CHF by history, currently compensated and nml lvfx per echo /history of CVA /PAD hx / DYSLIPIDEMIA - cont home meds -DM NIDDM- cont iss, diet, controlled. -ANEMIA - chronic dz/ckd - mild drop in hh, monitor, transfuse as needed. -Constipation. Continue bowel regimen -Fall precautions DISPOSITION - return to snf w IV abx to be continued in dialysis DVT Prophylaxis: SCD/Teds. Start subcu heparin no planned procedures - Time Spent with Patient Total time spent providing and/or coordinating discharge services: Greater than 30 minutes - Quality: VTE Deep Vein Thrombosis/Pulmonary Embolism Present on Admission: No Exam Vital signs: Vital Signs 06/03/18 12:00 06/03/18 16:00 06/03/18 20:00 Temperature 97.7 F 97.7 F 98.3 F Pulse Rate 73 73 75 Respiratory Rate 16 16 17 Blood Pressure 128/61 106/51 L 131/59 L Pulse Oximetry 100 100 100 06/04/18 00:00 06/04/18 03:55 06/04/18 08:00 Temperature 98.5 F 97.6 F 98.0 F Pulse Rate 73 73 71 Respiratory Rate 18 18 18 Blood Pressure 109/55 L 128/56 L 119/62 Pulse Oximetry 96 99 95 Intake & Output 06/03/18 06/04/18 06/04/18 18:59 06:59 18:59 Intake Total 1700 / 1700 480 / 480 Balance 1700 / 1700 480 / 480 Weight 65 kg 65 kg Intake: IV 100 / 100 Cubicin Inj 700 MG In NS Inj 100 / 100 100 ML @ 200 mls/hr IV.SIG Q48H [facility] Rx#:[id number] Oral 1600 / 1600 480 / 480 Other: # Voids 0 0 Date of Last Bowel Movement 06/02/18 # Bowel Movements 2 2 Narrative: wdwn elderly aam nad aaox2 flat affect heart s1s2 irregularly irregular lungs clear no wrr abd soft nondt pos bs ext no edema no clubbing no cyanosis Results Procedures completed during hospitalization: Removal of permacath Subclavian CL Labs on day of discharge: Labs from last 24 hours 06/04/18 06/03/18 06/03/18 07:49 19:47 16:29 POC Glucose 76 169 H 126 H 06/03/18 12:20 POC Glucose 108 Preliminary micro results at discharge 05/31/18 06:43 Aerobic Blood Culture - Preliminary Blood - Peripheral No growth in 4 days Anaerobic Blood Culture - Preliminary No growth in 4 days - Impressions ITS Impressions Chest X-Ray 05/20/18 18:07 CONCLUSION: 1. Right subclavian central venous catheter in place. No evidence of pneumothorax. 2. Pulmonary vascular congestion/mild pulmonary edema. Head CT 05/20/18 18:07 CONCLUSION: 1. No acute findings in the brain. . Tube Removal 05/23/18 00:00 CONCLUSION: 1. Uncomplicated Permcath removal. Upper Extremity Ultrasound 05/30/18 00:00 CONCLUSION: 1. No hemodynamically significant stenosis identified. The patient's fistula appears widely patent. Venous Doppler Study 05/30/18 00:00 CONCLUSION: 1. Occluded AV graft in the right upper extremity. 2. Small amount of thrombus just at the anastomosis of the graft with the cephalic vein. 3. The deep venous system of the right upper extremity appears patent. Discharge Plan - Discharge Disposition Patient Disposition: Discharge to SNF - Discharge Condition Condition: Stable - Discharge Order Discharge Orders: Discharge Order (Routine); Ordered 06/04/18 Ordered By: Marcelo Walters Vascular Surgery Clear for Discharge (Routine); Ordered 06/01/18 Ordered By: Agustín Bustos - Discharge Details Discharge Comment: dc home when iv cubicin q 48hrs post dialysis x 6 weeks is arranged with weekly cpk labs to be followed by neprhology while on cubicin - Physicians Team Primary Care Provider: UNKNOWN, Attending Provider: Marcelo Walters Other Providers: Marivel Arciniega MD ; Jade Morton MD ; [facility] ; Agustín Bustos MD
--- NOTE | 2018-06-04 12:33 | P.PNNP ---
Subjective Interval history: Patient lying in bed in the dialysis room. Tolerating dialysis well. Physical Exam Vital signs: Vital Signs 06/03/18 16:00 06/03/18 20:00 06/04/18 00:00 Temperature 97.7 F 98.3 F 98.5 F Pulse Rate 73 75 73 Respiratory Rate 16 17 18 Blood Pressure 106/51 L 131/59 L 109/55 L Pulse Oximetry 100 100 96 06/04/18 03:55 06/04/18 08:00 Temperature 97.6 F 98.0 F Pulse Rate 73 71 Respiratory Rate 18 18 Blood Pressure 128/56 L 119/62 Pulse Oximetry 99 95 Intake & Output 06/03/18 06/04/18 06/04/18 18:59 06:59 18:59 Intake Total 1700 / 1700 480 / 480 Balance 1700 / 1700 480 / 480 Weight 65 kg 65 kg Intake: IV 100 / 100 Cubicin Inj 700 MG In NS Inj 100 / 100 100 ML @ 200 mls/hr IV.SIG Q48H [facility] Rx#:[id number] Oral 1600 / 1600 480 / 480 Other: # Voids 0 0 Date of Last Bowel Movement 06/02/18 # Bowel Movements 2 2 Narrative: wdwn elderly no respiratory distress. aaox2 flat affect heart s1s2 irregularly irregular lungs clear no wrr abd soft nondt pos bs ext no edema no clubbing no cyanosis Assessment and Plan - Assessment (1) ESRD (end stage renal disease) on dialysis Code(s): N18.6 - End stage renal disease; Z99.2 - Dependence on renal dialysis Status: Chronic Plan: HD is being performed today. Next hemodialysis session next week Wednesday as an outpatient. ID has placed discharge abx orders and is cleared for D/C from renal standpoint.. Outpatient dialysis unit aware. Medications should be adjusted for ESRD. Avoid gadolinium. (2) Bacteremia Code(s): R78.81 - Bacteremia Status: Acute Plan: On Cubicin per ID. RSC PermCath removed 05/23. BCx neg 05/30 & 05/31 Recommended 6 weeks of antibiotic therapy total from last negative culture per ID. (3) Hypertension Code(s): I10 - Essential (primary) hypertension Status: Chronic Qualifiers: Hypertension type: essential hypertension Qualified Code(s): I10 - Essential (primary) hypertension Plan: BP better controlled. Continue on current regimen. (4) Diabetes mellitus Code(s): E11.9 - Type 2 diabetes mellitus without complications Status: Acute Plan: Mgmt as per primary (5) Atrial fibrillation Code(s): I48.91 - Unspecified atrial fibrillation Status: Acute Plan: Rate controlled (6) Right shoulder pain Code(s): M25.511 - Pain in right shoulder Status: Acute Plan: Resolved as of 05/31
[2018-06-04 13:24] VITALS: BP 101/54; PULSE 75; RESP 17; TEMP 97.3
== END 2018-06-04 16:05 ==
LOC: NEPE 17:53 → NEDA 19:57 → N07 21:02
PROVIDERS: ADMIT Internal Medicine; ATTEND Internal Medicine
DX: K59.00 Constipation, unspecified; I50.9 Heart failure, unspecified; E11.51 Type 2 diabetes mellitus with diabetic peripheral angiopathy without gangrene; N18.6 End stage renal disease; F03.90 Unspecified dementia, unspecified severity, without behavioral disturbance, psychotic disturbance, mood disturbance, and anxiety; R00.0 Tachycardia, unspecified; E78.5 Hyperlipidemia, unspecified; G93.41 Metabolic encephalopathy; A41.02 Sepsis due to Methicillin resistant Staphylococcus aureus; I13.2 Hypertensive heart and chronic kidney disease with heart failure and with stage 5 chronic kidney disease, or end stage renal disease; E11.22 Type 2 diabetes mellitus with diabetic chronic kidney disease; Y84.8 Other medical procedures as the cause of abnormal reaction of the patient, or of later complication, without mention of misadventure at the time of the procedure; Z86.73 Personal history of transient ischemic attack (TIA), and cerebral infarction without residual deficits; R65.20 Severe sepsis without septic shock; Z99.2 Dependence on renal dialysis; M25.511 Pain in right shoulder; D63.1 Anemia in chronic kidney disease; T80.211A Bloodstream infection due to central venous catheter, initial encounter; I48.91 Unspecified atrial fibrillation; M54.2 Cervicalgia; E11.42 Type 2 diabetes mellitus with diabetic polyneuropathy